=== PATIENT | male | born 1955 | race Caucasian/White ===

== ENCOUNTER 2017-10-09 03:14 | Inpatient (IN) | payer MEDICARE, SELFPAY ==
[2017-10-09] VITALS (17 sets, daily range): BP systolic 96–166; BP diastolic 52–98; PULSE 102–138; RESP 18–23; TEMP 36.6–37.2; O2SAT 92–97; BMI 37.5; BMI 36.6; BMI 36.7
--- NOTE | 2017-10-09 03:30 | EKG12_ITS ---
Test Reason : FALL Blood Pressure : / mmHG Vent. Rate : 117 BPM Atrial Rate : 117 BPM P-R Int : 178 ms QRS Dur : 064 ms QT Int : 316 ms P-R-T Axes : 035 094 020 degrees QTc Int : 440 ms Sinus tachycardia Septal infarct , age undetermined Abnormal ECG Confirmed by RADHA WANG, MONICA ([id number]), publishing editor IWONA DIA ([id number] on 10/11/2017 2:05:44 PM Referred By: NICOLE Confirmed By:MONICA GARCIA MD
--- NOTE | 2017-10-09 03:31 | CT_ITS ---
STUDY: CT CERVICAL SPINE WITHOUT CONTRAST REASON FOR EXAM: Male, 62 years old. Fall RADIATION DOSAGE (If Supplied By Facility): CTDIvol = ( 25.87 ) mGy, DLP = ( 615.36 ) mGycm TECHNIQUE: High resolution transaxial imaging was performed without contrast material. Sagittal and coronal images were reconstructed. Individualized dose optimization techniques were used for this CT. COMPARISON: None FINDINGS: Normal craniovertebral junction. Degenerative changes are present involving the atlantoaxial axial articulation. Normal odontoid process. Normal cervical lordosis. Normal vertebral bodies and posterior osseous elements. Diffuse degenerative disease is present. No acute fractures or dislocations are seen. Carotid calcifications. CT/Spine Cervical without Contras IMPRESSION: No acute osseous injury is evident. Comment: MRI is more sensitive than CT in detecting cord injury, ligament injury, and epidural hematoma. If there is continued clinical concern for any of these entities, MRI correlation should be considered if possible. Electronically Signed: Ricky Foreman MD at 4:46 EDT Tel , Service support ,
--- NOTE | 2017-10-09 03:31 | CT_ITS ---
STUDY: CT ABDOMEN AND PELVIS WITH CONTRAST REASON FOR EXAM: Male, 62 years old. S/P FALL, C/O LOWER BACK PAIN, CONCUSSION DISORDER, UNABLE TO STAND, WEAKNESS, HX MO, HTN, DIAB RADIATION DOSAGE (If Supplied By Facility): CTDIvol = ( 22.84 ) mGy, DLP = ( 2416.67 ) mGycm TECHNIQUE: Transaxial images were obtained from the dome of the diaphragm to the symphysis pubis without oral contrast. 100ML ml of Isovue 300 contrast was administered. Sagittal and coronal images were reconstructed. Individualized dose optimization techniques were used for this CT. COMPARISON: None. FINDINGS: The visualized lung bases are unremarkable. The visualized portions of the heart are within normal limits. Normal liver. Normal gallbladder and extrahepatic biliary system. Normal spleen. Normal pancreas. Normal bilateral adrenal glands. Normal right kidney. Normal left kidney. Bilateral renal cysts are noted the largest measures 3.5 cm. Normal visualized stomach. Normal small intestine. Normal colon. The appendix is visualized and appears normal. Normal abdominal aorta. Normal inferior vena cava. Normal retroperitoneum. Normal urinary bladder. Normal abdominal wall. There are diffuse degenerative changes and demineralization of the visualized lumbar spine. There is compression fracture of T12 without displacement of the posterior wall or stenosis of the spine canal. CT/Abdomen/Pelvis WITH Contrast IMPRESSION: Compression fracture of T12. Electronically Signed: Kianna Goodman MD at 5:08 EDT Tel , Service support ,
--- NOTE | 2017-10-09 03:31 | CT_ITS ---
STUDY: CT BRAIN WITHOUT CONTRAST REASON FOR EXAM: Male, 62 years old. S/P FALL, C/O LOWER BACK PAIN, CONCUSSION DISORDER, UNABLE TO STAND, WEAKNESS, HX [place], HTN, DIAB RADIATION DOSAGE (If Supplied By Facility): CTDIvol = ( 44.99 ) mGy, DLP = ( 880.47 ) mGycm TECHNIQUE: Transaxial CT imaging of the brain was performed without administration of intravenous contrast material. Individualized dose optimization techniques were used for this CT. COMPARISON: None. FINDINGS: Normal soft tissue structures. Normal calvarium. There is moderate cerebral atrophy with widening of the extra-axial spaces and ventricular dilatation. There are areas of decreased attenuation within the white matter tracts of the supratentorial brain, consistent with microvascular disease changes. Normal basal ganglia and thalami. Normal brainstem. Normal cerebellum. There is no intracranial hemorrhage. There are no findings of an acute ischemic infarction. Normal visualized paranasal sinuses. CT/Brain/Head without Contrast IMPRESSION: Chronic involutional changes of the brain. Electronically Signed: Kianna Goodman MD at 4:36 EDT Tel , Service support ,
--- NOTE | 2017-10-09 03:32 | CT_ITS ---
STUDY: CT CHEST WITH CONTRAST REASON FOR EXAM: Male, 62 years old. Fall RADIATION DOSAGE (If Supplied By Facility): CTDIvol = ( 22.84 ) mGy, DLP = ( 2416.67 ) mGycm TECHNIQUE: Transaxial imaging was performed following intravenous administration of 100ML ml of Isovue 300 contrast material. Individualized dose optimization techniques were used for this CT. COMPARISON: None. FINDINGS: Median sternotomy wires and CABG clips. The lungs are normal. There is no demonstrated pleural abnormality. Normal heart and pericardium. Normal mediastinum. Normal hilar regions. Normal enhanced pulmonary arteries. Normal aorta arch and descending thoracic aorta. An incompletely imaged fracture of the T12 vertebral body is noted, seen on sagittal image 161. Fatty liver and left renal cyst. CT/Chest WITH Contrast IMPRESSION: Incompletely imaged fracture of T12. Otherwise, no CT evidence of acute injury involving the chest. Electronically Signed: Ricky Foreman MD at 4:35 EDT Tel , Service support ,
--- NOTE | 2017-10-09 03:39 | ED.DCSUM_ITS ---
- ER Visit Summary Date of Service: 10/09/17 Chief Complaint: Fall, dizziness and right side pain History of Present Illness: The patient is a 62 M with history of postconcussive syndrome, diabetes, hypertension, coronary artery disease and hypercholesterolemia who presents for fall secondary to dizziness. Patient states he fell 1 or 2 days ago, is not sure, and was unable to get off the floor. He fell onto the bathtub, striking his right side. He has rib pain, shortness of breath, and is unable to cough because of associated pain. He was unable to get up off the floor and was on the ground for several hours. He was finally able to call EMS today. He states he falls frequently because of dizziness. He has multiple injuries on his arms due to this. He has carpet vang on his knees because of crawling across the floor. He states he has been unable to walk since he fell due to dizziness and weakness. He denies hitting his head, and is unsure if he lost consciousness. Patient states he has not eaten or taken his medications since he fell. Patient uses alcohol but denies daily drinking. He is not on any blood thinners. He uses oral tobacco. Physical Examination: Vital signs: afebrile, tachycardic, no hypoxia on room air General: well nourished, well developed, sitting in bed in no distress Skin: warm, dry, scattered well-healing abrasions to the upper extremities, no pallor, no rash HEENT: normocephalic and atraumatic; PERRL, EOMI, moist mucous membranes, no maxillofacial trauma noted Spine: tenderness to palp midline cervical spine and thoracic spine, no deformities or step-offs noted Cardiovascular: Tachycardic rate and rhythm without murmurs, no peripheral edema , 2+ pulses all distal extremities Respiratory: Mild increased work of breathing with shallow respirations, tachypnea, lungs are clear to auscultation bilaterally, no rales, rhonchi or wheezing, subacute bruising noted to the right posterior lateral chest wall Abdominal: Abdomen is soft, tender in the left upper quadrant with hyperactive bowel sounds, no guarding or rebound, no masses MSK: Moves all extremities, no deformities, normal strength; abrasions and erythema to the bilateral knees, pelvis is stable and nontender, negative logroll to the hips bilaterally Neuro: Awake and alert, oriented ?4. No facial droop, sensation and motor function intact and symmetric Test Results: Abnormal Lab Results 10/09/17 10/09/17 10/09/17 03:35 03:35 03:35 WBC 18.1 H RBC 4.66 Hgb 15.7 Hct 45.1 MCV 96.8 H MCH 33.7 H MCHC 34.8 RDW 14.5 RDW Differential 49.6 H Plt Count 196 MPV 11.3 Immature Gran % (Auto) 0.300 Neut % (Auto) 79.7 H Lymph % (Auto) 9.4 L [place] % (Auto) 10.3 H Eos % (Auto) 0.1 Baso % (Auto) 0.2 Absolute Neuts (auto) 14.4 H Absolute Lymphs (auto) 1.69 Total Counted Not Reportable Differential Comment SCANNED Diff Path Review May foll Reactive Lymphocytes 2+ PT 14.0 INR 1.1 APTT 29.9 Sodium 136 Potassium 4.2 Chloride 100 Carbon Dioxide 24.0 Anion Gap 12 BUN 23 H Creatinine 1.34 H Estim Creat Clear Calc 57.50 Est GFR (MDRD) Af Amer 69 Est GFR (MDRD) Non-Af 57 L BUN/Creatinine Ratio 17.2 Glucose 255 H Lactic Acid Calcium 9.3 Total Bilirubin 1.40 H Direct Bilirubin 0.36 H AST 63 H ALT 44 Alkaline Phosphatase 72 Total Creatine Kinase Troponin I < 0.015 Total Protein 7.6 Albumin 3.9 Globulin 3.7 Urine Color Urine Clarity Urine pH Ur Specific [place] Urine Protein Urine Glucose (UA) Urine Ketones Urine Occult Blood Urine Nitrite Urine Bilirubin Urine Urobilinogen Ur Leukocyte Esterase Urine RBC Urine WBC Ur Squamous Epith Cells Uric Acid Crystals Urine Bacteria Urine Mucus Urine Opiates Screen Urine Methadone Screen Ur Barbiturates Screen Ur Phencyclidine Scrn Ur Amphetamines Screen U Methamphetamin-MDMA U Benzodiazepines Scrn Urine Cocaine Screen U Cannabinoids Screen Ur Drug Screen Comment Ethyl Alcohol 10/09/17 10/09/17 10/09/17 03:35 03:35 03:35 WBC RBC Hgb Hct MCV MCH MCHC RDW RDW Differential Plt Count MPV Immature Gran % (Auto) Neut % (Auto) Lymph % (Auto) [place] % (Auto) Eos % (Auto) Baso % (Auto) Absolute Neuts (auto) Absolute Lymphs (auto) Total Counted Differential Comment Diff Path Review Reactive Lymphocytes PT INR APTT Sodium Potassium Chloride Carbon Dioxide Anion Gap BUN Creatinine Estim Creat Clear Calc Est GFR (MDRD) Af Amer Est GFR (MDRD) Non-Af BUN/Creatinine Ratio Glucose Lactic Acid 1.8 Calcium Total Bilirubin Direct Bilirubin AST ALT Alkaline Phosphatase Total Creatine Kinase 2057 H Troponin I Total Protein Albumin Globulin Urine Color Urine Clarity Urine pH Ur Specific [place] Urine Protein Urine Glucose (UA) Urine Ketones Urine Occult Blood Urine Nitrite Urine Bilirubin Urine Urobilinogen Ur Leukocyte Esterase Urine RBC Urine WBC Ur Squamous Epith Cells Uric Acid Crystals Urine Bacteria Urine Mucus Urine Opiates Screen Urine Methadone Screen Ur Barbiturates Screen Ur Phencyclidine Scrn Ur Amphetamines Screen U Methamphetamin-MDMA U Benzodiazepines Scrn Urine Cocaine Screen U Cannabinoids Screen Ur Drug Screen Comment Ethyl Alcohol 6.0 10/09/17 10/09/17 04:17 04:17 WBC RBC Hgb Hct MCV MCH MCHC RDW RDW Differential Plt Count MPV Immature Gran % (Auto) Neut % (Auto) Lymph % (Auto) [place] % (Auto) Eos % (Auto) Baso % (Auto) Absolute Neuts (auto) Absolute Lymphs (auto) Total Counted Differential Comment Diff Path Review Reactive Lymphocytes PT INR APTT Sodium Potassium Chloride Carbon Dioxide Anion Gap BUN Creatinine Estim Creat Clear Calc Est GFR (MDRD) Af Amer Est GFR (MDRD) Non-Af BUN/Creatinine Ratio Glucose Lactic Acid Calcium Total Bilirubin Direct Bilirubin AST ALT Alkaline Phosphatase Total Creatine Kinase Troponin I Total Protein Albumin Globulin Urine Color Yellow Urine Clarity Sl. Cloudy Urine pH 5.0 Ur Specific [place] 1.025 Urine Protein 30 H Urine Glucose (UA) 1000 H Urine Ketones 15 H Urine Occult Blood 50 H Urine Nitrite Negative Urine Bilirubin Negative Urine Urobilinogen Normal Ur Leukocyte Esterase Negative Urine RBC 0-5 SEEN Urine WBC 0 SEEN Ur Squamous Epith Cells 0-5 SEEN Uric Acid Crystals RARE Urine Bacteria RARE Urine Mucus 0 SEEN Urine Opiates Screen NEGATIVE Urine Methadone Screen NEGATIVE Ur Barbiturates Screen NEGATIVE Ur Phencyclidine Scrn NEGATIVE Ur Amphetamines Screen NEGATIVE U Methamphetamin-MDMA NEGATIVE U Benzodiazepines Scrn NEGATIVE Urine Cocaine Screen NEGATIVE U Cannabinoids Screen NEGATIVE Ur Drug Screen Comment Ethyl Alcohol Clinical Impression(s) from Imaging Studies Abdomen/Pelvis CT 10/09/17 03:31 IMPRESSION: Compression fracture of T12. Brain CT 10/09/17 03:31 IMPRESSION: Chronic involutional changes of the brain. Cervical Spine CT 10/09/17 03:31 IMPRESSION: No acute osseous injury is evident. Comment: MRI is more sensitive than CT in detecting cord injury, ligament injury, and epidural hematoma. If there is continued clinical concern for any of these entities, MRI correlation should be considered if possible. Chest CT 10/09/17 03:32 IMPRESSION: Incompletely imaged fracture of T12. Otherwise, no CT evidence of acute injury involving the chest. Emergency Department Course and Treatment: Patient presents with complaints of injuries after a fall that he attributes to dizziness from postconcussive syndrome. The fall occurred within the last 2 days but patient is unsure of the timeline. He does know he was on the floor for several hours. This is concerning for possible rhabdomyolysis. Because of patient's bruising on his chest and the pain with breathing and coughing, this is concerning for possible rib fractures or other intrathoracic trauma. Patient is also tender in the abdomen and has C-spine tenderness to palpation. Thus CT of the head, C-spine, chest abdomen and pelvis was performed to look for traumatic injury. CK was checked for concern for muscle breakdown. Was given IV fluids for hydration. He was given morphine for pain. Labs came back with a leukocytosis of 18.1. This in conjunction with the tachycardia, the shortness of breath, and the known chest wall trauma is concerning for possible interval development of pneumonia while patient was on the ground. Thus he was started on Rocephin for antibiotic coverage. CK was elevated at 6 to7 times the upper limit of normal consistent with rhabdomyolysis. CMP showed no electrolyte derangements, and modest elevation of creatinine with no baseline to compare to for the last 4 years. Troponin negative. EKG showed sinus tachycardia without ischemic changes. Drug screen and alcohol screen were negative. Urinalysis showed no signs of infection. Lactate was normal at 1.8. CT head showed no intracranial hemorrhage. C-spine showed no fractures or dislocations. CT chest abdomen and pelvis showed a T12 compression fracture. No rib fractures or pneumonia noted. No infectious source was identified to explain patient's leukocytosis or tachycardia. Likely these are reactive to patient's prolonged downtime and his subsequent rhabdomyolysis. Thus further sepsis workup was not pursued. Patient remained persistently tachycardic despite fluids. He did feel better and was able to sleep. We discussed any possibility that he could be withdrawing from substance or alcohol, and he denied any possible withdrawal syndrome. Patient will be admitted for treatment of rhabdomyolysis and his T12 compression fracture. He was discussed with Dr. Flores. Treatment Plan: [] Disposition: Admit to tele/PCU Impression: 1. Fall 2. Rhabdomyolysis 3. T12 compression fracture 4. Sinus tachycardia 5. Right chest wall contusion This note was generated with [employer] dictation software. It may contain incorrect words, spelling, and punctuation that were not noted in review of the chart prior to signing ED Disposition - Plan for ED Patient: Chief Complaint: Fall Referrals: Maria Isabel Abreu MD [Primary Care Provider] -
[2017-10-09] MEDS: 0.9% Normal Saline 1,000 ML 999 ML IV (03:42)
[2017-10-09 03:53] LABS: Absolute Lymphocyte Count 1.69 X10^3/ul (0.83-4.51); Absolute Neutrophil Count 14.4 X10^3/uL (2.0-7.7); Basophil# 0.04 X10^3/uL; Basophil% 0.2 % (0-1); Differential Indicated SCAN CRITERIA MET; Eosinophil# 0.01 X10^3/uL; Eosinophils% 0.1 % (0-5); Hematocrit 45.1 % (40-54); Hemoglobin 15.7 g/dl (13.0-16.5); Lymphocyte # 1.69 X10^3/ul (4.0); Lymphocyte % 9.4 % (19-41); Mean Corp Hgb Conc 34.8 g/gl (32-36); Mean Corpuscular Hgb 33.7 pg (27.0-32.0); Mean Corpuscular Volume 96.8 fL (80-94); Mean Platelet Vol. 11.3 fl (6.2-12.0); Monocyte# 1.86 X10^3/uL; Monocyte% 10.3 % (0-10); Neutrophil # 14.42 X10^3/uL (2.7-7.7); Neutrophil % 79.7 % (47-70); POSITIVE COUNT NO; POSITIVE DIFFERENTIAL YES; POSITIVE MORPHOLOGY NO; Platelet Count 196 K/mm3 (150-450); RBC Distribution Width CV 14.5 % (11.6-14.6); RBC Distribution Width SD 49.6 fl (35.1-43.9); Red Blood Count 4.66 M/mm3 (4.6-6.2); White Blood Count 18.1 K/mm3 (4.4-11.0)
[2017-10-09 03:56] LABS: International Normalized Ratio 1.1; Partial Thromboplast Time 29.9 Seconds (24.1-36.2)
[2017-10-09 04:11] LABS: Differential Comment SCANNED; Reactive Lymphocyte 2+
[2017-10-09 04:23] LABS: Mucous, Urine 0 SEEN /hpf (<or=2+); White Blood Cells 0 SEEN /hpf (0-5)
[2017-10-09 04:25] LABS: Color, Urine Yellow (Yellow); Glucose, Dipstick 1000 mg/dl (Normal); Ketone-Dipstick 15 mg/dl (Negative); Leukocyte Esterase-Dipstick Negative /ul (Negative); Nitrite-Dipstick Negative (Negative); Occult Blood-Urine 50 /ul (Negative); Protein-Dipstick 30 mg/dl (Negative); Specific Gravity, Urine 1.025 (1.002-1.030); Urine Bilirubin Dipstick Negative (Negative); Urine Clarity Sl. Cloudy (Clear); Urine Urobilinogen Normal (Normal)
[2017-10-09 04:25] LABS: CPK Total, Creatine Kinase 2057 U/L (39-308)
[2017-10-09 04:29] LABS: Lactic Acid 1.8 mmol/L (0.4-2.0)
[2017-10-09 04:34] LABS: Bacteria RARE /hpf (None Seen); Squamous Epithelial Cells - UA 0-5 SEEN /hpf (0-5)
[2017-10-09 04:35] LABS: Red Blood Cells-Urine 0-5 SEEN /hpf (0-5); Uric Acid Crystals Ur RARE /hpf (<or=1+)
[2017-10-09 04:39] LABS: Amphetamine Urine VISTA NEGATIVE (<1000 ng/mL); Barbiturate Urine VISTA NEGATIVE (< 200 ng/mL); Benzodiazepine Urine VISTA NEGATIVE (< 200 ng/mL); Cocaine Urine VISTA NEGATIVE (< 300 ng/mL); Ecstacy Urine VISTA NEGATIVE (< 500 ng/mL); Methadone Urine VISTA NEGATIVE (< 300 ng/mL); PCP Urine VISTA NEGATIVE (< 25 ng/mL); THC Urine VISTA NEGATIVE (< 50 ng/mL); Vista UDS pH Range 5
[2017-10-09] MEDS: Morphine 4 MG/ML Syringe IV (04:42)
[2017-10-09] MEDS: Ondansetron 4 MG/2 ML Vial IV (04:43)
[2017-10-09] MEDS: Ceftriaxone 1 GM/50 ML BAG IV (05:07)
[2017-10-09 05:32] LABS: AST(SGOT) 63 U/L (15-37); Alanine Aminotransfer ALT/SGPT 44 U/L (16-61); Albumin, Serum 3.9 g/dL (3.2-5.0); Alkaline Phosphatase 72 U/L (45-117); Anion Gap 12 (5-15); BUN 23 mg/dL (7-18); BUN/Creat Ratio 17.2 RATIO (10-20); Bilirubin, Direct 0.36 mg/dL (0.00-0.30); Calcium,Total 9.3 mg/dL (8.5-10.1); Chloride 100 mmol/L (98-107); Creatinine, Serum 1.34 mg/dL (0.70-1.30); EST Glomerular Filtration Rate 57 mL/min (>60); Est Glom Filt Rate - Afr Amer 69 mL/min (>60); Globulin 3.7 g/dL (2.2-4.2); Glucose 255 mg/dL (74-106); Potassium 4.2 mmol/L (3.5-5.1); Protein, Total 7.6 g/dL (6.4-8.2); Sodium Level 136 mmol/L (136-145)
--- NOTE | 2017-10-09 06:12 | PCM.HP.STD ---
Problem List (1) Rhabdomyolysis Status: Acute (2) CANDI (acute kidney injury) Status: Acute (3) Post concussion syndrome Status: Chronic (4) CAD (coronary artery disease) Status: Chronic Qualifiers: Coronary Disease-Associated Artery/Lesion type: bypass graft [place] vs. transplanted heart: [place] heart Associated angina: without angina Qualified Code(s): I25.810 - Atherosclerosis of coronary artery bypass graft(s) without angina pectoris (5) Vertigo Status: Chronic (6) DM2 (diabetes mellitus, type 2) Status: Chronic (7) Leukocytosis Status: Acute History of Present Illness Date of Admission: 10/09/17 Chief Complaint: fall The patient is a 62 year old M who has chronic dizziness due to a concussion that he had received 2 or 3 years ago. Patient was in the shower and fell with his dizziness. Today he landed on his side. This occurred on the . Patient was unable to get up but was finally able to get hold EMS and was brought to the hospital. Patient was found to have rhabdomyolysis with total creatinine kinase of 7. Patient had CAT scans of his chest abdomen and neck. Patient was found to have a T12 fracture. Patient does state he has having some pain when he takes deep breath in his anterior chest. Patient's states that he falls at least a couple times per week due to his chronic dizziness. His last fall was a few days prior to this event. [] Past Medical History Past Medical History (Chronic Problems): Chronic Problems Post concussion syndrome (Chronic) CAD (coronary artery disease) (Chronic) Vertigo (Chronic) DM2 (diabetes mellitus, type 2) (Chronic) Allergies Mvopnzd-Sfh-Ysw Reductase Inhibitor Allergy (Verified 10/09/17 03:15) Swelling Home Medications: Ambulatory Orders Medication Instructions Recorded Metformin HCl [Glucophage] 1,000 mg PO BIDCM 07/21/13 Glipizide [Glucotrol] 10 mg PO DAILY 10/09/17 Lisinopril 20 mg PO DAILY 10/09/17 Pioglitazone HCl 45 mg PO DAILY 10/09/17 Surgical History: coronary bypass surgery Psychiatric History: No pertinent psych hx Lives: Alone Smoking Status: Never smoker Tobacco Use: Non-smoker Alcohol: Rare Drugs: None - *Family History Paternal History Items: Heart Disease Review of Systems Constitutional: Denies: Anorexia, Chills, Fever, Night Sweats Eyes: Denies: Blurred vision, Double vision HEENT: Denies: Head Aches, Sinus Congestion, Sinus Drainage Cardiovascular: Denies: Chest Pain, Palpitations Respiratory: Denies: Cough, Shortness of breath at rest, Sputum production Gastrointestinal: Denies: Abdominal Pain, Nausea, Vomiting Genitourinary: Denies: Dysuria, Hematuria Musculoskeletal: Denies: Joint Pain, Joint Tenderness Skin: Reports: Wounds - From his falls Neurological: Reports: Balance problems, - - Difficulty with remembering turns.. Denies: Blurred vision, Double vision Psychiatric: Denies: Anxiety, Depression Endocrine: Denies: Change in Body Habitus Hematologic/ Lymphatic: Denies: Easy Bruising, Easy Bleeding, Hx of blood clot VTE Information - Inpt Only VTE Present on Admission: No VTE Pharm Prophylaxis ordered?: Yes Patient Problems: Active and Suspected Problems Rhabdomyolysis (Acute) CANDI (acute kidney injury) (Acute) Leukocytosis (Acute) - Physical Exam General: Alert, Cooperative, No apparent distress HEENT: Atraumatic, PERRLA, EOMI, Normocephalic Oral: Moist Mucosa, No Gingival or Mucosal Lesions/ Ulcerations Neck: No Nodes, Thyroid Normal Size and Texture Lungs: Clear to auscultation, Normal air movement, No rhonchi, No wheeze Cardiovascular: Regular rate, Regular Rhythm, Normal S1, Normal S2, No murmurs Abdomen: Bowel Sounds Present, Soft, Non Tender, Non-Distended, No Hepato-splenomegaly Extremities: No edema, No Calf Tenderness Skin: - - Some superficial wounds his knees and arms. Musculoskeletal: No Tenderness to Palpation of Joints or Extremities, No Muscle Wasting Neurological: Neuro grossly intact, Muscle tone normal Psych/Mental Status: Normal Affect, Appropriate Vital Signs Temp Pulse Resp BP Pulse Ox 36.7 C 135 H 23 H 132/98 H 94 10/09/17 06:02 10/09/17 06:02 10/09/17 06:02 10/09/17 06:02 10/09/17 06:02 Oxygen Delivery Method Room Air Weight: 118.7 kg Body Mass Index (BMI) 37.5 Finger Stick Blood Glucose 297 Laboratory Tests Past 24 Hrs 10/09/17 10/09/17 10/09/17 03:35 03:35 03:35 WBC 18.1 H RBC 4.66 Hgb 15.7 Hct 45.1 MCV 96.8 H MCH 33.7 H MCHC 34.8 RDW 14.5 RDW Differential 49.6 H Plt Count 196 MPV 11.3 Immature Gran % (Auto) 0.300 Neut % (Auto) 79.7 H Lymph % (Auto) 9.4 L [place] % (Auto) 10.3 H Eos % (Auto) 0.1 Baso % (Auto) 0.2 Absolute Neuts (auto) 14.4 H Absolute Lymphs (auto) 1.69 Total Counted Not Reportable Differential Comment SCANNED Diff Path Review May foll Reactive Lymphocytes 2+ PT 14.0 INR 1.1 APTT 29.9 Sodium 136 Potassium 4.2 Chloride 100 Carbon Dioxide 24.0 Anion Gap 12 BUN 23 H Creatinine 1.34 H Estim Creat Clear Calc 57.50 Est GFR (MDRD) Af Amer 69 Est GFR (MDRD) Non-Af 57 L BUN/Creatinine Ratio 17.2 Glucose 255 H Lactic Acid Calcium 9.3 Total Bilirubin 1.40 H Direct Bilirubin 0.36 H AST 63 H ALT 44 Alkaline Phosphatase 72 Total Creatine Kinase Troponin I < 0.015 Total Protein 7.6 Albumin 3.9 Globulin 3.7 Urine Color Urine Clarity Urine pH Ur Specific [place] Urine Protein Urine Glucose (UA) Urine Ketones Urine Occult Blood Urine Nitrite Urine Bilirubin Urine Urobilinogen Ur Leukocyte Esterase Urine RBC Urine WBC Ur Squamous Epith Cells Uric Acid Crystals Urine Bacteria Urine Mucus Urine Opiates Screen Urine Methadone Screen Ur Barbiturates Screen Ur Phencyclidine Scrn Ur Amphetamines Screen U Methamphetamin-MDMA U Benzodiazepines Scrn Urine Cocaine Screen U Cannabinoids Screen Ur Drug Screen Comment Ethyl Alcohol 10/09/17 10/09/17 10/09/17 03:35 03:35 03:35 WBC RBC Hgb Hct MCV MCH MCHC RDW RDW Differential Plt Count MPV Immature Gran % (Auto) Neut % (Auto) Lymph % (Auto) [place] % (Auto) Eos % (Auto) Baso % (Auto) Absolute Neuts (auto) Absolute Lymphs (auto) Total Counted Differential Comment Diff Path Review Reactive Lymphocytes PT INR APTT Sodium Potassium Chloride Carbon Dioxide Anion Gap BUN Creatinine Estim Creat Clear Calc Est GFR (MDRD) Af Amer Est GFR (MDRD) Non-Af BUN/Creatinine Ratio Glucose Lactic Acid 1.8 Calcium Total Bilirubin Direct Bilirubin AST ALT Alkaline Phosphatase Total Creatine Kinase 2057 H Troponin I Total Protein Albumin Globulin Urine Color Urine Clarity Urine pH Ur Specific [place] Urine Protein Urine Glucose (UA) Urine Ketones Urine Occult Blood Urine Nitrite Urine Bilirubin Urine Urobilinogen Ur Leukocyte Esterase Urine RBC Urine WBC Ur Squamous Epith Cells Uric Acid Crystals Urine Bacteria Urine Mucus Urine Opiates Screen Urine Methadone Screen Ur Barbiturates Screen Ur Phencyclidine Scrn Ur Amphetamines Screen U Methamphetamin-MDMA U Benzodiazepines Scrn Urine Cocaine Screen U Cannabinoids Screen Ur Drug Screen Comment Ethyl Alcohol 6.0 10/09/17 10/09/17 04:17 04:17 WBC RBC Hgb Hct MCV MCH MCHC RDW RDW Differential Plt Count MPV Immature Gran % (Auto) Neut % (Auto) Lymph % (Auto) [place] % (Auto) Eos % (Auto) Baso % (Auto) Absolute Neuts (auto) Absolute Lymphs (auto) Total Counted Differential Comment Diff Path Review Reactive Lymphocytes PT INR APTT Sodium Potassium Chloride Carbon Dioxide Anion Gap BUN Creatinine Estim Creat Clear Calc Est GFR (MDRD) Af Amer Est GFR (MDRD) Non-Af BUN/Creatinine Ratio Glucose Lactic Acid Calcium Total Bilirubin Direct Bilirubin AST ALT Alkaline Phosphatase Total Creatine Kinase Troponin I Total Protein Albumin Globulin Urine Color Yellow Urine Clarity Sl. Cloudy Urine pH 5.0 Ur Specific [place] 1.025 Urine Protein 30 H Urine Glucose (UA) 1000 H Urine Ketones 15 H Urine Occult Blood 50 H Urine Nitrite Negative Urine Bilirubin Negative Urine Urobilinogen Normal Ur Leukocyte Esterase Negative Urine RBC 0-5 SEEN Urine WBC 0 SEEN Ur Squamous Epith Cells 0-5 SEEN Uric Acid Crystals RARE Urine Bacteria RARE Urine Mucus 0 SEEN Urine Opiates Screen NEGATIVE Urine Methadone Screen NEGATIVE Ur Barbiturates Screen NEGATIVE Ur Phencyclidine Scrn NEGATIVE Ur Amphetamines Screen NEGATIVE U Methamphetamin-MDMA NEGATIVE U Benzodiazepines Scrn NEGATIVE Urine Cocaine Screen NEGATIVE U Cannabinoids Screen NEGATIVE Ur Drug Screen Comment Ethyl Alcohol Clinical Impression(s) from Imaging Studies Abdomen/Pelvis CT 10/09/17 03:31 IMPRESSION: Compression fracture of T12. Electronically Signed: Kianna Goodman MD at 5:08 EDT Tel , Service support , Brain CT 10/09/17 03:31 IMPRESSION: Chronic involutional changes of the brain. Electronically Signed: Kianna Goodman MD at 4:36 EDT Tel , Service support , Cervical Spine CT 10/09/17 03:31 IMPRESSION: No acute osseous injury is evident. Comment: MRI is more sensitive than CT in detecting cord injury, ligament injury, and epidural hematoma. If there is continued clinical concern for any of these entities, MRI correlation should be considered if possible. Electronically Signed: Ricky Foreman MD at 4:46 EDT Tel , Service support , Chest CT 10/09/17 03:32 IMPRESSION: Incompletely imaged fracture of T12. Otherwise, no CT evidence of acute injury involving the chest. Electronically Signed: Ricky Foreman MD at 4:35 EDT Tel , Service support , Assessment/Plan Active and Suspected Problems Rhabdomyolysis (Acute) CANDI (acute kidney injury) (Acute) Leukocytosis (Acute) 1. Rhabdomyolysis Secondary to fall and being down for 24+ hours. IV fluids Recheck CK levels to evaluate response. 2. Acute kidney injury, presumed Baseline creatinine appears to be around 1 and now it is 1.34 IV fluids and reevaluate. 3. Diabetes mellitus type 2 Hold the metformin given IV contrast he received with his CAT scans Continue with glipizide and p.o. glitazone Start sliding scale insulin 4. Chronic vertigo Patient is seen numerous specialists, including neurologists, possibly ENT and psychiatrist. Is felt from by those specialists, going to the patient, that this is related with his postconcussive syndrome. I asked the patient if he has been told he has M?ni?re's disease and looked to me as though that the first time is heard those words Follow-up with neurology as outpatient 5. DVT prophylaxis with low molecular weight heparin 6. Advanced care planning: Patient wishes to be full CODE STATUS at this time. Code Visit Inpatient E&M: [id number] Init Hosp L3
--- NOTE | 2017-10-09 06:20 | HP.PCM_ITS ---
Problem List (1) Rhabdomyolysis Status: Acute (2) CANDI (acute kidney injury) Status: Acute (3) Post concussion syndrome Status: Chronic (4) CAD (coronary artery disease) Status: Chronic Qualifiers: Coronary Disease-Associated Artery/Lesion type: bypass graft [place] vs. transplanted heart: [place] heart Associated angina: without angina Qualified Code(s): I25.810 - Atherosclerosis of coronary artery bypass graft(s) without angina pectoris (5) Vertigo Status: Chronic (6) DM2 (diabetes mellitus, type 2) Status: Chronic (7) Leukocytosis Status: Acute History of Present Illness Date of Admission: 10/09/17 Chief Complaint: fall The patient is a 62 year old M who has chronic dizziness due to a concussion that he had received 2 or 3 years ago. Patient was in the shower and fell with his dizziness. Today he landed on his side. This occurred on the . Patient was unable to get up but was finally able to get hold EMS and was brought to the hospital. Patient was found to have rhabdomyolysis with total creatinine kinase of 7. Patient had CAT scans of his chest abdomen and neck. Patient was found to have a T12 fracture. Patient does state he has having some pain when he takes deep breath in his anterior chest. Patient's states that he falls at least a couple times per week due to his chronic dizziness. His last fall was a few days prior to this event. [] Past Medical History Past Medical History (Chronic Problems): Chronic Problems Post concussion syndrome (Chronic) CAD (coronary artery disease) (Chronic) Vertigo (Chronic) DM2 (diabetes mellitus, type 2) (Chronic) Allergies Manpwbr-Xgx-Ofe Reductase Inhibitor Allergy (Verified 10/09/17 03:15) Swelling Home Medications: Ambulatory Orders Medication Instructions Recorded Metformin HCl [Glucophage] 1,000 mg PO BIDCM 07/21/13 Glipizide [Glucotrol] 10 mg PO DAILY 10/09/17 Lisinopril 20 mg PO DAILY 10/09/17 Pioglitazone HCl 45 mg PO DAILY 10/09/17 Surgical History: coronary bypass surgery Psychiatric History: No pertinent psych hx Lives: Alone Smoking Status: Never smoker Tobacco Use: Non-smoker Alcohol: Rare Drugs: None - *Family History Paternal History Items: Heart Disease Review of Systems Constitutional: Denies: Anorexia, Chills, Fever, Night Sweats Eyes: Denies: Blurred vision, Double vision HEENT: Denies: Head Aches, Sinus Congestion, Sinus Drainage Cardiovascular: Denies: Chest Pain, Palpitations Respiratory: Denies: Cough, Shortness of breath at rest, Sputum production Gastrointestinal: Denies: Abdominal Pain, Nausea, Vomiting Genitourinary: Denies: Dysuria, Hematuria Musculoskeletal: Denies: Joint Pain, Joint Tenderness Skin: Reports: Wounds - From his falls Neurological: Reports: Balance problems, - - Difficulty with remembering turns.. Denies: Blurred vision, Double vision Psychiatric: Denies: Anxiety, Depression Endocrine: Denies: Change in Body Habitus Hematologic/ Lymphatic: Denies: Easy Bruising, Easy Bleeding, Hx of blood clot VTE Information - Inpt Only VTE Present on Admission: No VTE Pharm Prophylaxis ordered?: Yes Patient Problems: Active and Suspected Problems Rhabdomyolysis (Acute) CANDI (acute kidney injury) (Acute) Leukocytosis (Acute) - Physical Exam General: Alert, Cooperative, No apparent distress HEENT: Atraumatic, PERRLA, EOMI, Normocephalic Oral: Moist Mucosa, No Gingival or Mucosal Lesions/ Ulcerations Neck: No Nodes, Thyroid Normal Size and Texture Lungs: Clear to auscultation, Normal air movement, No rhonchi, No wheeze Cardiovascular: Regular rate, Regular Rhythm, Normal S1, Normal S2, No murmurs Abdomen: Bowel Sounds Present, Soft, Non Tender, Non-Distended, No Hepato- splenomegaly Extremities: No edema, No Calf Tenderness Skin: - - Some superficial wounds his knees and arms. Musculoskeletal: No Tenderness to Palpation of Joints or Extremities, No Muscle Wasting Neurological: Neuro grossly intact, Muscle tone normal Psych/Mental Status: Normal Affect, Appropriate Vital Signs Temp Pulse Resp BP Pulse Ox 36.7 C 135 H 23 H 132/98 H 94 10/09/17 06:02 10/09/17 06:02 10/09/17 06:02 10/09/17 06:02 10/09/17 06:02 Oxygen Delivery Method Room Air Weight: 118.7 kg Body Mass Index (BMI) 37.5 Finger Stick Blood Glucose 297 Laboratory Tests Past 24 Hrs 10/09/17 10/09/17 10/09/17 03:35 03:35 03:35 WBC 18.1 H RBC 4.66 Hgb 15.7 Hct 45.1 MCV 96.8 H MCH 33.7 H MCHC 34.8 RDW 14.5 RDW Differential 49.6 H Plt Count 196 MPV 11.3 Immature Gran % (Auto) 0.300 Neut % (Auto) 79.7 H Lymph % (Auto) 9.4 L [place] % (Auto) 10.3 H Eos % (Auto) 0.1 Baso % (Auto) 0.2 Absolute Neuts (auto) 14.4 H Absolute Lymphs (auto) 1.69 Total Counted Not Reportable Differential Comment SCANNED Diff Path Review May foll Reactive Lymphocytes 2+ PT 14.0 INR 1.1 APTT 29.9 Sodium 136 Potassium 4.2 Chloride 100 Carbon Dioxide 24.0 Anion Gap 12 BUN 23 H Creatinine 1.34 H Estim Creat Clear Calc 57.50 Est GFR (MDRD) Af Amer 69 Est GFR (MDRD) Non-Af 57 L BUN/Creatinine Ratio 17.2 Glucose 255 H Lactic Acid Calcium 9.3 Total Bilirubin 1.40 H Direct Bilirubin 0.36 H AST 63 H ALT 44 Alkaline Phosphatase 72 Total Creatine Kinase Troponin I < 0.015 Total Protein 7.6 Albumin 3.9 Globulin 3.7 Urine Color Urine Clarity Urine pH Ur Specific [place] Urine Protein Urine Glucose (UA) Urine Ketones Urine Occult Blood Urine Nitrite Urine Bilirubin Urine Urobilinogen Ur Leukocyte Esterase Urine RBC Urine WBC Ur Squamous Epith Cells Uric Acid Crystals Urine Bacteria Urine Mucus Urine Opiates Screen Urine Methadone Screen Ur Barbiturates Screen Ur Phencyclidine Scrn Ur Amphetamines Screen U Methamphetamin-MDMA U Benzodiazepines Scrn Urine Cocaine Screen U Cannabinoids Screen Ur Drug Screen Comment Ethyl Alcohol 10/09/17 10/09/17 10/09/17 03:35 03:35 03:35 WBC RBC Hgb Hct MCV MCH MCHC RDW RDW Differential Plt Count MPV Immature Gran % (Auto) Neut % (Auto) Lymph % (Auto) [place] % (Auto) Eos % (Auto) Baso % (Auto) Absolute Neuts (auto) Absolute Lymphs (auto) Total Counted Differential Comment Diff Path Review Reactive Lymphocytes PT INR APTT Sodium Potassium Chloride Carbon Dioxide Anion Gap BUN Creatinine Estim Creat Clear Calc Est GFR (MDRD) Af Amer Est GFR (MDRD) Non-Af BUN/Creatinine Ratio Glucose Lactic Acid 1.8 Calcium Total Bilirubin Direct Bilirubin AST ALT Alkaline Phosphatase Total Creatine Kinase 2057 H Troponin I Total Protein Albumin Globulin Urine Color Urine Clarity Urine pH Ur Specific [place] Urine Protein Urine Glucose (UA) Urine Ketones Urine Occult Blood Urine Nitrite Urine Bilirubin Urine Urobilinogen Ur Leukocyte Esterase Urine RBC Urine WBC Ur Squamous Epith Cells Uric Acid Crystals Urine Bacteria Urine Mucus Urine Opiates Screen Urine Methadone Screen Ur Barbiturates Screen Ur Phencyclidine Scrn Ur Amphetamines Screen U Methamphetamin-MDMA U Benzodiazepines Scrn Urine Cocaine Screen U Cannabinoids Screen Ur Drug Screen Comment Ethyl Alcohol 6.0 10/09/17 10/09/17 04:17 04:17 WBC RBC Hgb Hct MCV MCH MCHC RDW RDW Differential Plt Count MPV Immature Gran % (Auto) Neut % (Auto) Lymph % (Auto) [place] % (Auto) Eos % (Auto) Baso % (Auto) Absolute Neuts (auto) Absolute Lymphs (auto) Total Counted Differential Comment Diff Path Review Reactive Lymphocytes PT INR APTT Sodium Potassium Chloride Carbon Dioxide Anion Gap BUN Creatinine Estim Creat Clear Calc Est GFR (MDRD) Af Amer Est GFR (MDRD) Non-Af BUN/Creatinine Ratio Glucose Lactic Acid Calcium Total Bilirubin Direct Bilirubin AST ALT Alkaline Phosphatase Total Creatine Kinase Troponin I Total Protein Albumin Globulin Urine Color Yellow Urine Clarity Sl. Cloudy Urine pH 5.0 Ur Specific [place] 1.025 Urine Protein 30 H Urine Glucose (UA) 1000 H Urine Ketones 15 H Urine Occult Blood 50 H Urine Nitrite Negative Urine Bilirubin Negative Urine Urobilinogen Normal Ur Leukocyte Esterase Negative Urine RBC 0-5 SEEN Urine WBC 0 SEEN Ur Squamous Epith Cells 0-5 SEEN Uric Acid Crystals RARE Urine Bacteria RARE Urine Mucus 0 SEEN Urine Opiates Screen NEGATIVE Urine Methadone Screen NEGATIVE Ur Barbiturates Screen NEGATIVE Ur Phencyclidine Scrn NEGATIVE Ur Amphetamines Screen NEGATIVE U Methamphetamin-MDMA NEGATIVE U Benzodiazepines Scrn NEGATIVE Urine Cocaine Screen NEGATIVE U Cannabinoids Screen NEGATIVE Ur Drug Screen Comment Ethyl Alcohol Clinical Impression(s) from Imaging Studies Abdomen/Pelvis CT 10/09/17 03:31 IMPRESSION: Compression fracture of T12. Electronically Signed: Kianna Goodman MD at 5:08 EDT Tel , Service support , Brain CT 10/09/17 03:31 IMPRESSION: Chronic involutional changes of the brain. Electronically Signed: Kianna Goodman MD at 4:36 EDT Tel , Service support , Cervical Spine CT 10/09/17 03:31 IMPRESSION: No acute osseous injury is evident. Comment: MRI is more sensitive than CT in detecting cord injury, ligament injury, and epidural hematoma. If there is continued clinical concern for any of these entities, MRI correlation should be considered if possible. Electronically Signed: Ricky Foreman MD at 4:46 EDT Tel , Service support , Chest CT 10/09/17 03:32 IMPRESSION: Incompletely imaged fracture of T12. Otherwise, no CT evidence of acute injury involving the chest. Electronically Signed: Ricky Foreman MD at 4:35 EDT Tel , Service support , Assessment/Plan Active and Suspected Problems Rhabdomyolysis (Acute) CANDI (acute kidney injury) (Acute) Leukocytosis (Acute) 1. Rhabdomyolysis * Secondary to fall and being down for 24+ hours. * IV fluids * Recheck CK levels to evaluate response. 2. Acute kidney injury, presumed * Baseline creatinine appears to be around 1 and now it is 1.34 * IV fluids and reevaluate. 3. Diabetes mellitus type 2 * Hold the metformin given IV contrast he received with his CAT scans * Continue with glipizide and p.o. glitazone * Start sliding scale insulin 4. Chronic vertigo * Patient is seen numerous specialists, including neurologists, possibly ENT and psychiatrist. Is felt from by those specialists, going to the patient, that this is related with his postconcussive syndrome. I asked the patient if he has been told he has M?ni?re's disease and looked to me as though that the first time is heard those words * Follow-up with neurology as outpatient 5. DVT prophylaxis with low molecular weight heparin 6. Advanced care planning: Patient wishes to be full CODE STATUS at this time. Code Visit Inpatient E&M: [id number] Init Hosp L3
--- NOTE | 2017-10-09 06:45 | MRI_ITS ---
STUDY: MRI THORACIC SPINE WITHOUT CONTRAST REASON FOR EXAM: Male, 62 years old. COMPRESSION FX T12 -- falls, pain , f/u CT. TECHNIQUE: Standardized fat and water weighted pulse sequences were obtained in the sagittal and axial planes. Technologist Notes sag s done only patient refused to continue due to back pain post morphine prior to start COMPARISON: 10/09/2017 CT abdomen FINDINGS: There is an increased kyphosis of the thoracic spine. There is no substantial scoliosis. T1-2, T2-3, T3-4, T4-5, T5-6, T6-7, T7-8, T8-9, T9-10, T10-11, T11-12: There is diffuse disc space narrowing and endplate spondylosis without significant central canal or foraminal stenosis. There is minimal compression at T12 with mild edema, consistent with fracture. There is no retropulsion. There is no evidence of ligamentous injury. There is increased cord signal and decreased cord size at T9. Complete evaluation is limited secondary to lack of axial sequence. Normal visualized thoracic cord. Normal conus medullaris that terminates at the . The soft tissue structures are unremarkable. MRI/Spine Thoracic (Routine) IMPRESSION: Acute T12 fracture. 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 Electronically Signed: Patsy Pemberton MD at 15:49 EDT Tel , Service support ,
[2017-10-09] MEDS: 0.9% Normal Saline 1,000 ML 150 ML IV ×3 (07:01→18:58)
[2017-10-09] MEDS: oxyCODONE 5 MG Tablet PO ×3 (07:03→20:25)
[2017-10-09] MEDS: Lisinopril 20 MG Tablet PO (08:39)
[2017-10-09] MEDS: glipiZIDE 10 MG Tablet PO (08:39)
[2017-10-09] MEDS: Enoxaparin 40 MG/0.4 ML Syringe SC (08:40)
[2017-10-09 08:56] LABS: Bedside Glucose 241 mg/dL (70-110)
[2017-10-09] MEDS: Pioglitazone Hydrochloride 45 MG Tablet PO (10:15)
[2017-10-09] MEDS: Metoprolol Tartrate 25 MG Tablet PO (10:15)
[2017-10-09] MEDS: Morphine 4 MG/ML Syringe 1 MG IV (11:13)
[2017-10-09] MEDS: BENZOCAINE/MENTHOL 1 LOZENGE MUCOUS MEM ×3 (11:13→21:00)
[2017-10-09] MEDS: Carbamide Peroxide 15 ML Bottle 5 DRP OTIC (11:30)
[2017-10-09 11:31] LABS: Bedside Glucose 244 mg/dL (70-110)
[2017-10-09 11:43] LABS: CPK Total, Creatine Kinase 1601 U/L (39-308)
--- NOTE | 2017-10-09 13:22 | CASEMGMT ---
Face to Face with patient for initial transition planning/care coordination assessment. RN SUDHEER introduced self and role at [facility], pt voices understanding and consents to assessment at this time. Pt is lying in bed in no distress at this time. Pt is A/O x4 at this time and answers all questions appropriately at this time. Care providers, pharmacy, and demographics verified. See attached link. Pt voices no further concerns/needs at this time. Advised pt to ask for CM if any further questions/concerns/needs arise, voices understanding. CM to follow for any further discharge planning/needs. Referral to [facility] for possible placement and AD completion, voices understanding. PLAN: TBD Isadora MCCORMICK CM
--- NOTE | 2017-10-09 13:37 | PN_ITS ---
<Berta Chen - Last Filed: 10/09/17 13:37> Patient Problems: Active and Suspected Problems Rhabdomyolysis (Acute) CANDI (acute kidney injury) (Acute) Leukocytosis (Acute) Subjective: Patient seen and examined. Complains of sore throat and right ear pain. States he has had frequent ongoing falls at home secondary to reported postconcussion syndrome. Patient complains of mid back pain secondary to fall prior to admission. Denies other current complaints. - Physical Exam General: Alert, Oriented x3, Cooperative, No apparent distress HEENT: Atraumatic, PERRLA, EOMI, Normocephalic Neck: Supple, No JVD, Negative Carotid Bruits Lungs: Clear to auscultation, Normal air movement Cardiovascular: Regular rate, Regular Rhythm, Normal S1, Normal S2, No murmurs Abdomen: Bowel Sounds Present, Soft, Non Tender, Non-Distended, Obese Extremities: No clubbing, No cyanosis, No edema, Capillary Refill Less than 3 Seconds Skin: - - Abrasions bilateral knees. Musculoskeletal: No Tenderness to Palpation of Joints or Extremities Neurological: Cranial nerves II-XII grossly intact, Neuro grossly intact Psych/Mental Status: Normal Affect, Appropriate Vital Signs Temp Pulse Resp BP Pulse Ox 97.9 F 107 H 18 96/63 93 10/09/17 11:25 10/09/17 11:25 10/09/17 11:25 10/09/17 11:25 10/09/17 11:25 Oxygen Delivery Method Room Air Weight: 115.9 kg Body Mass Index (BMI) 36.6 Laboratory Tests Past 24 Hrs 10/09/17 10:10 Total Creatine Kinase 1601 H POC Glucose 10/09/17 10/09/17 11:22 08:19 POC Glucose 244 H 241 H Medical Necessity - Tobacco Use Smoking Status: Former smoker Tobacco Use: Non-smoker Assessment/Plan Active and Suspected Problems Rhabdomyolysis (Acute) CANDI (acute kidney injury) (Acute) Leukocytosis (Acute) Patient is a 62-year-old male admitted 10/09/2017 due to fall. Patient has a past medical history of frequent falls secondary to chronic dizziness as a result of postconcussion syndrome, CAD, type 2 diabetes mellitus, hypertension. 1. Acute traumatic rhabdomyolysis, secondary to fall prior to admission and being down for 24+ hours-continue IV fluids. Trend CK. CK improved to 1601 from 2056 on admission. 2. CANDI-secondary to #1. Trend BMP. Continue IV fluids. 3. Acute traumatic T12 fracture, secondary to mechanical fall prior to admission -CT of chest showed fracture of T12. Otherwise no evidence of injury involving the chest. MRI of thoracic spine ordered, pending. Consider Dr. Ortiz consult pending MRI results. PT/OT. PRN pain regimen. 4. Frequent falls, debility secondary to chronic dizziness as a result of postconcussion syndrome-patient states he has followed up with neurology in the past, no follow-up recently. He reports he was told by neurology that his chronic dizziness is related to postconcussion syndrome. Brain CT shows chronic changes. Consult neurology. PT/OT. CM consult regarding discharge planning. 5. CAD-denies chest pain. Not on aspirin, statin. 6. Type 2 diabetes mellitus-continue home oral regimen. Accu-Cheks before meals at bedtime with sliding scale insulin. 7. Hypertension-stable. Home lisinopril regimen on hold secondary to #2. Continue to monitor. DVT prophylaxis-Lovenox subcu. Discharge planning: Case management involved. Physical therapy assessment pending. Patient may need further home-going needs/temporary placement. This patient was seen by REYNALDO Olvera under the supervision of Dr. Chase. <Josee Chase - Last Filed: 10/09/17 16:31> - Physical Exam Vital Signs Temp Pulse Resp BP Pulse Ox 98.1 F 109 H 18 97/62 94 10/09/17 16:00 10/09/17 16:00 10/09/17 16:00 10/09/17 16:00 10/09/17 16:00 Oxygen Delivery Method Room Air Weight: 115.9 kg Body Mass Index (BMI) 36.6 Intake and Output for Last 24 Hours 10/07/17 10/08/17 10/09/17 23:59 23:59 23:59 Intake Total 1215 / 1215 Output Total 425 / 425 Balance 790 / 790 Laboratory Tests Past 24 Hrs 10/09/17 10:10 Total Creatine Kinase 1601 H POC Glucose 10/09/17 10/09/17 11:22 08:19 POC Glucose 244 H 241 H Assessment/Plan Patient was seen and examined with nurse practitioner, Berta Chen. Agree with his above interval history, physical exam, and assessment and plan as documented above. He complains of sore throat and ear pain that started this morning. He has severe back pain, and pain medications fairly helping him. He has history of chronic dizziness, does not follow up with any neurologist, does not use any assistive device at home. He denies passing out at the time of the fall. He denies any chest pain or palpitations no fever or chills Vitals have been reviewed, heart rate has remained high on account of pain. Physical exam is significant for mild hyperemia of the pharynx, no tonsillar enlargement. Right ear has wax, eardrum on the needed looks normal. Decreased air entry in the lung bases, heart sounds 1 and 2 present, no murmurs Meds were reviewed. MRI shows acute T12 compression fracture -we will consult Dr. Cunningham, continue with current pain management, PT and OT to evaluate and treat. Neurology consult for chronic dizziness, postconcussion syndrome Will follow up on PT and OT recommendation Code Visit Inpatient E&M: 65971 Subs Hosp L3
--- NOTE | 2017-10-09 14:46 | CASEMGMT ---
SW attempted to talk with patient about d/c plan. However, he is not feeling well and asked SW to come back. SW told him SW will check in with him tomorrow. Plan: likely SNF Chery YOUNGER MSW
[2017-10-09 15:00] LABS: Pathologist Review Reviewed
[2017-10-09 16:56] LABS: Bedside Glucose 190 mg/dL (70-110)
[2017-10-09 22:05] LABS: CPK Total, Creatine Kinase 800 U/L (39-308)
[2017-10-09 23:50] LABS: Bedside Glucose 178 mg/dL (70-110)
[2017-10-10] VITALS (10 sets, daily range): BP systolic 119–158; BP diastolic 64–82; PULSE 98–114; RESP 16–18; TEMP 36.9–37.1; O2SAT 94–95
[2017-10-10] MEDS: oxyCODONE 5 MG Tablet PO ×3 (00:42→17:29)
[2017-10-10] MEDS: 0.9% Normal Saline 1,000 ML 150 ML IV ×2 (00:43→07:50)
[2017-10-10] MEDS: Morphine 4 MG/ML Syringe 1 MG IV ×2 (03:23→11:15)
[2017-10-10] MEDS: BENZOCAINE/MENTHOL 1 LOZENGE MUCOUS MEM ×2 (03:24→17:29)
[2017-10-10] MEDS: Acetaminophen 325 MG Tablet 650 MG PO (06:22)
[2017-10-10 06:33] LABS: Absolute Lymphocyte Count 1.89 X10^3/ul (0.83-4.51); Absolute Neutrophil Count 7.3 X10^3/uL (2.0-7.7); Basophil# 0.03 X10^3/uL; Basophil% 0.3 % (0-1); Eosinophil# 0.14 X10^3/uL; Eosinophils% 1.3 % (0-5); Hematocrit 39.3 % (40-54); Hemoglobin 12.9 g/dl (13.0-16.5); Lymphocyte # 1.89 X10^3/ul (4.0); Lymphocyte % 18.2 % (19-41); Mean Corp Hgb Conc 32.8 g/gl (32-36); Mean Corpuscular Hgb 33.3 pg (27.0-32.0); Mean Corpuscular Volume 101.6 fL (80-94); Mean Platelet Vol. 10.8 fl (6.2-12.0); Monocyte# 0.98 X10^3/uL; Monocyte% 9.4 % (0-10); Neutrophil # 7.32 X10^3/uL (2.7-7.7); Neutrophil % 70.5 % (47-70); Platelet Count 131 K/mm3 (150-450); RBC Distribution Width CV 14.6 % (11.6-14.6); RBC Distribution Width SD 53.2 fl (35.1-43.9); Red Blood Count 3.87 M/mm3 (4.6-6.2); White Blood Count 10.4 K/mm3 (4.4-11.0)
[2017-10-10 06:38] LABS: POSITIVE COUNT NO; POSITIVE DIFFERENTIAL NO; POSITIVE MORPHOLOGY NO
[2017-10-10 06:55] LABS: Bedside Glucose 152 mg/dL (70-110)
[2017-10-10 06:56] LABS: Anion Gap 7 (5-15); BUN 19 mg/dL (7-18); BUN/Creat Ratio 20.6 RATIO (10-20); Calcium,Total 8.1 mg/dL (8.5-10.1); Chloride 108 mmol/L (98-107); Creatinine, Serum 0.92 mg/dL (0.70-1.30); EST Glomerular Filtration Rate 88 mL/min (>60); Est Glom Filt Rate - Afr Amer 106 mL/min (>60); Estimated Creatinine Clearance 83.76 ml/min; Glucose 149 mg/dL (74-106); Potassium 4.3 mmol/L (3.5-5.1); Sodium Level 142 mmol/L (136-145)
[2017-10-10] MEDS: glipiZIDE 10 MG Tablet PO (07:59)
--- NOTE | 2017-10-10 09:15 | PN_ITS ---
Patient Problems: Active and Suspected Problems Rhabdomyolysis (Acute) CANDI (acute kidney injury) (Acute) Leukocytosis (Acute) Subjective: Patient was seen and examined, he feels great this morning, pain is much controlled. Denies any dizziness or chest pain or shortness of breath. His sore throat is much improved. Discussed in detail with Dr. Cunningham, he plans on doing a kyphoplasty tomorrow if patient is agreeable. Discussed with patient, he wanted to know more about the risks and benefits, I told him that Dr. Orozco will pass by later in the day to explain and then possibly proceed with the procedure tomorrow if patient is still agreeable Objective: Physical Exam General: Alert, Oriented x3, Cooperative, No apparent distress, obese HEENT: Atraumatic, PERRLA, EOMI, Normocephalic Neck: Supple, No JVD, Negative Carotid Bruits Lungs: Clear to auscultation, Normal air movement Cardiovascular: Regular rate, Regular Rhythm, Normal S1, Normal S2, No murmurs Abdomen: Bowel Sounds Present, Soft, Non Tender, Non-Distended, Obese Extremities: No clubbing, No cyanosis, No edema, Capillary Refill Less than 3 Seconds Skin: - - Abrasions bilateral knees. Musculoskeletal: No Tenderness to Palpation of Joints or Extremities Neurological: Cranial nerves II-XII grossly intact, Neuro grossly intact Psych/Mental Status: Normal Affect, Appropriate Vitals/I&O's: Vital Signs Temp Pulse Resp BP Pulse Ox 98.5 F 114 H 16 135/64 H 94 10/10/17 03:10 10/10/17 07:13 10/10/17 03:10 10/10/17 03:10 10/10/17 03:10 Oxygen Delivery Method Room Air Weight: 115.9 kg Body Mass Index (BMI) 36.6 Intake and Output for Last 24 Hours 10/08/17 10/09/17 10/10/17 23:59 23:59 23:59 Intake Total 4145 / 4145 1046 / 1046 Output Total 850 / 850 550 / 550 Balance 3295 / 3295 496 / 496 Laboratory Results 10/09/17 10:10: Total Creatine Kinase 1601 H 10/09/17 11:22: POC Glucose 244 H 10/09/17 16:44: POC Glucose 190 H 10/09/17 21:03: POC Glucose 178 H 10/09/17 21:36: Total Creatine Kinase 800 H 10/10/17 06:15: WBC 10.4, RBC 3.87 L, Hgb 12.9 L, Hct 39.3 L, MCV 101.6 H, MCH 33.3 H, MCHC 32.8, RDW 14.6, RDW Differential 53.2 H, Plt Count 131 L, MPV 10.8 , Immature Gran % (Auto) 0.300, Neut % (Auto) 70.5 H, Lymph % (Auto) 18.2 L, [place] % (Auto) 9.4, Eos % (Auto) 1.3, Baso % (Auto) 0.3, Absolute Neuts (auto) 7.3, Absolute Lymphs (auto) 1.89, Total Counted Not Reportable 10/10/17 06:15: Sodium 142, Potassium 4.3, Chloride 108 H, Carbon Dioxide 27.0, Anion Gap 7, BUN 19 H, Creatinine 0.92, Estim Creat Clear Calc 83.76, Est GFR ( MDRD) Af Amer 106, Est GFR (MDRD) Non-Af 88, BUN/Creatinine Ratio 20.6 H, Glucose 149 H, Calcium 8.1 L 10/10/17 06:43: POC Glucose 152 H Current Medications Acetaminophen (Tylenol) 650 mg PO Q6H PRN PRN PRN Reason: Mild Pain (1-3)/Temp > 100.7 F Last Admin: 10/10/17 06:22 Dose: 650 mg Dextrose (D50w Syringe) 0 gm IV X1 PRN; Protocol PRN Reason: Hypoglycemia Enoxaparin Sodium (Lovenox) 40 mg SC DAILY@1000 [facility] Last Admin: 10/09/17 08:40 Dose: 40 mg Glipizide (Glucotrol) 10 mg PO DAILY@0800 [facility] Last Admin: 10/10/17 07:59 Dose: 10 mg Glucagon () 1 mg IM .X1 PRN PRN Reason: Hypoglycemia Sodium Chloride () 1,000 mls @ 150 mls/hr IV .Q6H40M [facility] Last Admin: 10/10/17 07:50 Dose: 150 mls/hr Insulin Aspart (Novolog Flexpen (Bkc)) 0 units SC TIDAC [facility] PRN Reason: Protocol Last Admin: 10/10/17 07:50 Dose: 1 u Magnesium Hydroxide (Milk Of Magnesia) 30 ml PO DAILY PRN PRN PRN Reason: Constipation Morphine Sulfate () 1 mg IV Q4H PRN PRN PRN Reason: MOD-SEVERE PAIN (4-10/10) Last Admin: 10/10/17 03:23 Dose: 1 mg Oxycodone HCl (Oxyir) 5 - 10 mg PO Q4H PRN PRN PRN Reason: MOD-SEVERE PAIN (4-10/10) Last Admin: 10/10/17 05:30 Dose: 10 mg Pioglitazone HCl (Actos) 45 mg PO DAILY [facility] Last Admin: 10/09/17 10:15 Dose: 45 mg Throat Lozenges (Cepacol Sore Throat Lozenge) 1 lozenge MUCOUS MEM Q2H PRN PRN PRN Reason: SORE THROAT Last Admin: 10/10/17 03:24 Dose: 1 lozenge Medical Necessity - Tobacco Use Smoking Status: Former smoker Tobacco Use: Non-smoker Assessment/Plan Active and Suspected Problems Rhabdomyolysis (Acute) CANDI (acute kidney injury) (Acute) Leukocytosis (Acute) Patient is a 62-year-old male admitted on 10/09/2017 secondary to fall. Patient has a past medical history of frequent falls secondary to chronic dizziness as a result of postconcussion syndrome, CAD, type 2 diabetes mellitus, hypertension. 1. Acute traumatic rhabdomyolysis, secondary to fall prior to admission and being down for 24+ hours-continue IV fluids. Creatinine is improving, remains on IV fluids, will possibly stop IV fluids tomorrow. 2. CANDI-secondary to #1, resolved, on IV fluids, repeat BMP in a.m. 3. Acute traumatic T12 fracture, secondary to mechanical fall prior to admission , seen on CT scan of the chest and also on MRI of the thoracic spine, Dr. Cunningham consulted, plans on doing kyphoplasty tomorrow, pain is fairly controlled. He will need to have workup and treatment for possible osteoporosis including DEXA scan and vitamin D evaluation. Check vitamin D level. 4. Debility, recurrent falls, denies secondary to BPPV, appreciate neurology consult, inpatient rehab for vestibular rehab recommended 5. CAD, will start patient on aspirin, statins, patient is intolerant of statins , check lipid profile in a.m. 6. Type 2 DM, BS are fairly controlled, on glipizide, Actos, Accu-Cheks with insulin sliding scale 7. Hypertension, controlled, lisinopril held on account of CANDI, will continue to monitor, possible resume lisinopril in am if renal function continues to improve. 8. DVT prophylaxis-Lovenox subcu. Code Visit Inpatient E&M: [id number] Subs Hosp L2
[2017-10-10] MEDS: Enoxaparin 40 MG/0.4 ML Syringe SC (09:31)
[2017-10-10] MEDS: Pioglitazone Hydrochloride 45 MG Tablet PO (09:31)
--- NOTE | 2017-10-10 10:12 | CASEMGMT ---
OSWALDO spoke with patient about placement. OSWALDO told him Medicare would pay for days 1-20 and after that there would be a daily co-pay. OSWALDO asked him about his monthly income and he gets around $2,000 a month. Therefore, he would not qualify for any extra help with his Medicare. OSWALDO asked him where he might be okay with going and he did not know. OSWALDO told him about [facility] and he was in agreement if a bed opens up. He was not sure about a second choice. Family arrived at that time and patient said he would like to visit with them. OSWALDO spoke with Hollie in TCU and at this time they do not have a bed, but this could change by the end of the day. OSWALDO will check back with Hollie at end of day to see if anything has changed. Chery YOUNGER MSW
--- NOTE | 2017-10-10 10:45 | CON.PCM_ITS ---
Reason for Consult Date of Consultation: 10/10/17 Reason for Consultation: dizzy and falls History of Present Illness: The patient is a 62 year old M presents with falls, has had chronic falls due to dizzyness which he describes as a sensation of motion with almost any movement, triggers dizziness. reports this has been present since a concussion 5 yrs ago and not prior. he describes his concussion as occuring due to a mechanical fall, hit his head, and one week later had onset of dizzyness while at a fun house. has seen a neurologist in [place] who diagnosed an otolith and tried repositioning maneuvers with no benefit. lives alone, doesnt work, has become very inactive due to his vertigo. fell in his bathroom suffered a t12 compression fracture, nondisplaced. was down for 9hrs. no history of joint replacement. vision ok. per admit h&p:The patient is a 62 year old M who has chronic dizziness due to a concussion that he had received 2 or 3 years ago. Patient was in the shower and fell with his dizziness. Today he landed on his side. This occurred on the . Patient was unable to get up but was finally able to get hold EMS and was brought to the hospital. Patient was found to have rhabdomyolysis with total creatinine kinase of 7. Patient had CAT scans of his chest abdomen and neck. Patient was found to have a T12 fracture. Patient does state he has having some pain when he takes deep breath in his anterior chest. Patient's states that he falls at least a couple times per week due to his chronic dizziness. His last fall was a few days prior to this event. Past Medical History Past Medical History (Chronic Problems): Chronic Problems Post concussion syndrome (Chronic) CAD (coronary artery disease) (Chronic) Vertigo (Chronic) DM2 (diabetes mellitus, type 2) (Chronic) Allergies Msewzer-Ios-Qzb Reductase Inhibitor Allergy (Verified 10/09/17 03:15) Swelling Home Medications: Ambulatory Orders Medication Instructions Recorded Metformin HCl [Glucophage] 1,000 mg PO BIDCM 07/21/13 Glipizide [Glucotrol] 10 mg PO DAILY 10/09/17 Lisinopril 20 mg PO DAILY 10/09/17 Pioglitazone HCl 45 mg PO DAILY 10/09/17 Surgical History: coronary bypass surgery Psychiatric History: No pertinent psych hx Lives: Alone Smoking Status: Former smoker Tobacco Use: Non-smoker Alcohol: Rare Drugs: None - *Family History Paternal History Items: Heart Disease Review of Systems Constitutional: Denies: Chills, Fever, Weight Change HEENT: Denies: Head Aches, Sinus Congestion, Sinus Drainage Cardiovascular: Denies: Chest Pain, Palpitations Respiratory: Denies: Cough, Shortness of breath at rest, Sputum production Gastrointestinal: Denies: Abdominal Pain, Nausea, Vomiting Genitourinary: Denies: Dysuria Musculoskeletal: Denies: Joint Pain, Joint Tenderness Skin: Denies: Rash, Wounds Neurological: Reports: Balance problems. Denies: Focal weakness, Numbness, Tingling Psychiatric: Denies: Anxiety, Depression, Homicidal Ideations, Suicidal Ideations Hematologic/ Lymphatic: Denies: Easy Bruising, Easy Bleeding Patient Problems: Active and Suspected Problems Rhabdomyolysis (Acute) CANDI (acute kidney injury) (Acute) Leukocytosis (Acute) - Physical Exam General: Alert, Oriented x3, Cooperative HEENT: Atraumatic, PERRLA, EOMI, Normocephalic Neck: Supple, No JVD, Negative Carotid Bruits Lungs: Clear to auscultation, Normal air movement Cardiovascular: Regular rate, No murmurs Abdomen: Bowel Sounds Present, Soft, Non Tender Extremities: No edema, Capillary Refill Less than 3 Seconds Skin: No rashes, No breakdown Musculoskeletal: No Tenderness to Palpation of Joints or Extremities Neurological: Cranial nerves II-XII grossly intact, - - decreased proprioception bilateral feet Psych/Mental Status: Normal Affect, Appropriate Vital Signs Temp Pulse Resp BP Pulse Ox 36.9 C 110 H 18 119/70 94 10/10/17 09:20 10/10/17 09:20 10/10/17 09:20 10/10/17 09:20 10/10/17 09:20 Oxygen Delivery Method Room Air Weight: 115.9 kg Body Mass Index (BMI) 36.6 Intake and Output for Last 24 Hours 10/08/17 10/09/17 10/10/17 23:59 23:59 23:59 Intake Total 4145 / 4145 1046 / 1046 Output Total 850 / 850 550 / 550 Balance 3295 / 3295 496 / 496 Laboratory Tests Past 24 Hrs 10/09/17 10/09/17 10/10/17 10:10 21:36 06:15 WBC 10.4 RBC 3.87 L Hgb 12.9 L Hct 39.3 L MCV 101.6 H MCH 33.3 H MCHC 32.8 RDW 14.6 RDW Differential 53.2 H Plt Count 131 L MPV 10.8 Immature Gran % (Auto) 0.300 Neut % (Auto) 70.5 H Lymph % (Auto) 18.2 L [place] % (Auto) 9.4 Eos % (Auto) 1.3 Baso % (Auto) 0.3 Absolute Neuts (auto) 7.3 Absolute Lymphs (auto) 1.89 Total Counted Not Reportable Sodium Potassium Chloride Carbon Dioxide Anion Gap BUN Creatinine Estim Creat Clear Calc Est GFR (MDRD) Af Amer Est GFR (MDRD) Non-Af BUN/Creatinine Ratio Glucose Calcium Total Creatine Kinase 1601 H 800 H 10/10/17 06:15 WBC RBC Hgb Hct MCV MCH MCHC RDW RDW Differential Plt Count MPV Immature Gran % (Auto) Neut % (Auto) Lymph % (Auto) [place] % (Auto) Eos % (Auto) Baso % (Auto) Absolute Neuts (auto) Absolute Lymphs (auto) Total Counted Sodium 142 Potassium 4.3 Chloride 108 H Carbon Dioxide 27.0 Anion Gap 7 BUN 19 H Creatinine 0.92 Estim Creat Clear Calc 83.76 Est GFR (MDRD) Af Amer 106 Est GFR (MDRD) Non-Af 88 BUN/Creatinine Ratio 20.6 H Glucose 149 H Calcium 8.1 L Total Creatine Kinase POC Glucose 10/10/17 10/09/17 10/09/17 06:43 21:03 16:44 POC Glucose 152 H 178 H 190 H 10/09/17 11:22 POC Glucose 244 H Current Home Med List Medication Instructions Recorded Confirmed Type Metformin HCl [Glucophage] 1,000 mg PO BIDCM 07/21/13 10/09/17 History Glipizide [Glucotrol] 10 mg PO DAILY 10/09/17 10/09/17 History Lisinopril 20 mg PO DAILY 10/09/17 10/09/17 History Pioglitazone HCl 45 mg PO DAILY 10/09/17 10/09/17 History Assessment/Plan Active and Suspected Problems Rhabdomyolysis (Acute) CANDI (acute kidney injury) (Acute) Leukocytosis (Acute) falls, multifactorial due to diabetic neuropathy, bppv, now complicated by thoracic compression fracture needs aggressive pt for gait and balance, consider rehab aggressive sugar control avoid sedatives
[2017-10-10 11:31] LABS: Bedside Glucose 147 mg/dL (70-110)
--- NOTE | 2017-10-10 12:19 | CASEMGMT ---
OSWALDO received a call from Nica in rehab and she said Dr Tran felt he would be a great rehab candidate. OSWALDO spoke with patient and he thinks it would be okay, but he is concerned because he cannot walk very well. OSWALDO told him they will work with him on this. He is getting a kyphoplasty tomorrow so we can see how that goes. Plan: Likely d/c to [facility] 4th floor rehab unit. Chery YOUNGER MSW
[2017-10-10] MEDS: Acetaminophen 500 MG Tablet 1000 MG PO ×2 (14:39→21:39)
[2017-10-10] MEDS: 0.9% Normal Saline 1,000 ML 75 ML IV (16:57)
[2017-10-10 17:06] LABS: Bedside Glucose 101 mg/dL (70-110)
[2017-10-10] MEDS: Calcium Carb/Vitamin D 1 TABLET Tablet PO (17:29)
[2017-10-10 18:16] LABS: Hemoglobin A1c 5.4 % (4.2-6.3)
[2017-10-10 22:01] LABS: Bedside Glucose 196 mg/dL (70-110)
[2017-10-11] VITALS (13 sets, daily range): BP systolic 150–165; BP diastolic 76–95; PULSE 79–106; RESP 14–18; TEMP 36.5–37.1; O2SAT 94–96; BMI 36.6
[2017-10-11] MEDS: oxyCODONE 5 MG Tablet PO ×3 (03:23→14:19)
[2017-10-11] MEDS: Acetaminophen 500 MG Tablet 1000 MG PO ×2 (05:03→14:18)
[2017-10-11] MEDS: 0.9% Normal Saline 1,000 ML 75 ML IV ×2 (05:03→14:30)
[2017-10-11 06:11] LABS: Cholesterol 161 mg/dL (200); High Density Lipoprotein 55 mg/dL; Triglycerides 120 mg/dL; Very Low Density Lipoprotein 24 mg/dL (5-40)
[2017-10-11 06:56] LABS: Bedside Glucose 139 mg/dL (70-110)
[2017-10-11] MEDS: glipiZIDE 10 MG Tablet PO (09:57)
[2017-10-11] MEDS: Pioglitazone Hydrochloride 45 MG Tablet PO (09:58)
[2017-10-11] MEDS: fentaNYL 25 MCG Patch TRANSDERM. (11:32)
--- NOTE | 2017-10-11 11:35 | CASEMGMT ---
Pt will likely be ready for discharge after the kyphoplasty, which is at 4pm this evening. OSWALDO called Nica in rehab to inquire if pt can come this evening, she states yes, as long as pt feels he is ready. OSWALDO let physician know, as long as pt is medically ready, he can go to rehab this evening after the kyphoplasty. Dr. Chase let pt know. Green sheet on chart in anticipation of discharge this evening, or tomorrow morning. RUTH Mckeon, VOCAL ARTIST
[2017-10-11 11:40] LABS: Bedside Glucose 120 mg/dL (70-110)
--- NOTE | 2017-10-11 11:48 | PCM.DC ---
- Discharge Diagnoses Current Active Problems: Current Active and Chronic Problems Rhabdomyolysis (Acute) CANDI (acute kidney injury) (Acute) Post concussion syndrome (Chronic) CAD (coronary artery disease) (Chronic) Vertigo (Chronic) DM2 (diabetes mellitus, type 2) (Chronic) Leukocytosis (Acute) Reason(s) for Visit for Discharge Instructions: Back pain You will use the following diet at home:: Calorie/Carbohydrate Controlled (specify 1200, 1400, etc), Cardiac Your food should be the consistency of: Regular Your liquids should be the consistency of: Regular/Thin Discharge Activity: Return to Normal Activity Allergies/Adverse Reactions: Allergies Flpwkwn-Bko-Gkh Reductase Inhibitor Allergy (Verified 10/09/17 03:15) Swelling Medications to take at Discharge Metformin HCl [Glucophage] 1,000 mg PO BIDCM 07/21/13 Glipizide [Glucotrol] 10 mg PO DAILY 10/09/17 Lisinopril 20 mg PO DAILY 10/09/17 Pioglitazone HCl 45 mg PO DAILY 10/09/17 Acetaminophen [Tylenol] 1,000 mg PO Q8 tablet 10/11/17 Calcium Carb/Vitamin D [Os-Saeed 500MG + D] 1 tablet PO DAILY@0800 tablet 10/11/17 Cholecalciferol (VIT D3) [Vitamin D3] 2,000 unit PO DAILY tablet 10/11/17 fentaNYL patch [Duragesic patch] 25 mcg TRANSDERM. Q3D 2 Days #5 patch 10/11/17 The following prescriptions were given: fentaNYL patch [Duragesic patch] 25 mcg TRANSDERM. Q3D 2 Days #5 patch Primary Care Physician: Maria Isabel Abreu MD [Primary Care Provider] - Please follow up with your Primary Care Physician in: within 2 weeks of discharge Proposed Discharge Date: 10/11/17
--- NOTE | 2017-10-11 11:49 | PCM.DC.SUM ---
Discharge Date and Diagnosis - Problem List Patient Problems: Active and Suspected Problems Rhabdomyolysis (Acute) CANDI (acute kidney injury) (Acute) Leukocytosis (Acute) Date of Admission: 10/09/17 Date of Discharge: 10/11/17 - Primary Discharge Diagnosis Active and Suspected Problems Rhabdomyolysis (Acute) CANDI (acute kidney injury) (Acute) Leukocytosis (Acute) - Secondary Discharge Diagnosis Chronic Problems Post concussion syndrome (Chronic) CAD (coronary artery disease) (Chronic) Vertigo (Chronic) DM2 (diabetes mellitus, type 2) (Chronic) Hospital Course and Treatment Imaging Results: Clinical Impression(s) from Imaging Studies Abdomen/Pelvis CT 10/09/17 03:31 IMPRESSION: Compression fracture of T12. Electronically Signed: Kianna Goodman MD at 5:08 EDT Tel , Service support , Brain CT 10/09/17 03:31 IMPRESSION: Chronic involutional changes of the brain. Electronically Signed: Kianna Goodman MD at 4:36 EDT Tel , Service support , Cervical Spine CT 10/09/17 03:31 IMPRESSION: No acute osseous injury is evident. Comment: MRI is more sensitive than CT in detecting cord injury, ligament injury, and epidural hematoma. If there is continued clinical concern for any of these entities, MRI correlation should be considered if possible. Electronically Signed: Ricky Foreman MD at 4:46 EDT Tel , Service support , Chest CT 10/09/17 03:32 IMPRESSION: Incompletely imaged fracture of T12. Otherwise, no CT evidence of acute injury involving the chest. Electronically Signed: Ricky Foreman MD at 4:35 EDT Tel , Service support , Thoracic Spine MRI 10/09/17 06:45 IMPRESSION: Acute T12 fracture. 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 Electronically Signed: Patsy Pemberton MD at 15:49 EDT Tel , Service support , Consultations 10/10/17 07:35 Consult: Onc/Wound/credentialing manager Routine Comment: Comments:: B/L knee abrasions, Redness/discoloration noted to toes Operations: - - s/p kyphoplasty(10/11/17) Procedures: None Summary of Care Provided: 62-year-old male admitted on 10/09/2017 secondary to fall. Patient has a past medical history of frequent falls secondary to chronic dizziness, history of postconcussion syndrome, CAD, type 2 diabetes mellitus, hypertension. 1. Acute traumatic rhabdomyolysis, secondary to fall prior to admission, he was down for 24+ hours, managed with IV fluids with improvement in Cr and CK. 2. CANDI-secondary to #1, resolved, managed on IV fluids, needs repeat BMP in the outpatient. 3. Acute traumatic T12 fracture, secondary to mechanical fall prior to admission, unclear if related to osteoporosis, seen on CT scan of the chest and MRI of the thoracic spine. Patient will be getting a kyphplasty on 10/11/17, prior to discharge by Dr. Cunningham. He will need to have workup and treatment for possible osteoporosis including DEXA scan and vitamin D evaluation. Vitamin D levels are pending. Started on vitamin D/calcium. 4. Debility, recurrent falls, dizziness secondary to BPPV, neurology consulted, will go for inpatient rehab for therapy. 5. CAD,on aspirin, statins, patient is intolerant of statins 6. Type 2 DM, on glipizide, Actos 7. Hypertension, controlled, lisinopril held initially on account of CANDI. Discharge Diet: Low fat/ Low Cholesterol, 2000 mg Sodium Diet, Carb Control Diet Discharge Activity: Return to Normal Activity Home Medications: Medications to take at Discharge Metformin HCl [Glucophage] 1,000 mg PO BIDCM 07/21/13 Glipizide [Glucotrol] 10 mg PO DAILY 10/09/17 Lisinopril 20 mg PO DAILY 10/09/17 Pioglitazone HCl 45 mg PO DAILY 10/09/17 Acetaminophen [Tylenol] 1,000 mg PO Q8 tablet 10/11/17 Calcium Carb/Vitamin D [Os-Saeed 500MG + D] 1 tablet PO DAILY@0800 tablet 10/11/17 Cholecalciferol (VIT D3) [Vitamin D3] 2,000 unit PO DAILY tablet 10/11/17 fentaNYL patch [Duragesic patch] 25 mcg TRANSDERM. Q3D 2 Days #5 patch 10/11/17 Following Prescrptions Were Given to Patient: fentaNYL patch [Duragesic patch] 25 mcg TRANSDERM. Q3D 2 Days #5 patch Primary Care Physician: Maria Isabel Abreu MD [Primary Care Provider] - Please follow up with your Primary Care Physician in: within 2 weeks of discharge Disposition: Inpt Rehab Unit/Facility Minutes spent on discharge:: 45 Patient Condition:: Stable Medical Necessity - Tobacco Use Smoking Status: Former smoker Tobacco Use: Non-smoker Meaningful Use Info Meaningful Use Diagnoses (Choose all that apply): None applicable Code Visit Inpatient E&M: 71707 Disch Hosp
--- NOTE | 2017-10-11 14:38 | NURSING ---
report called to AC
[2017-10-11 15:01] LABS: Bedside Glucose 80 mg/dL (70-110)
--- NOTE | 2017-10-11 15:08 | RAD_ITS ---
STUDY: X-RAY - THORACIC SPINE REASON FOR EXAM: Male, 62 years old. Thoracic epidural TECHNIQUE: 1 fluoroscopic view(s) of the thoracic spine were obtained. COMPARISON: None. FINDINGS: Fluoroscopic guidance was provided during a epidural injection. RAD/Spine 1 View Any Level IMPRESSION: As above. Electronically Signed: Harlan Streeter, at 16:03 EDT Tel , Service support ,
[2017-10-11] MEDS: Triamcinolone Acetonide 40 MG/ML Vial (15:17)
[2017-10-15 12:50] LABS: Vitamin D 1,25-Dihydroxy 37.2 pg/mL (19.9-79.3)
== END 2017-10-11 17:23 | DRG 565 ==
LOC: ED 04:12 → PCU 06:23
PROVIDERS: Anesthesiology Pain Medicine; Emergency Provider Emergency Medicine; Family Provider Family Medicine; PCP Family Medicine; Visit Provider Internal Medicine
PROC: 3E0S3BZ Introduction of Anesthetic Agent into Epidural Space, Percutaneous Approach (ICD-10-PCS; principal; 2017-10-11 15:55)
DX: T79.6XXA Traumatic ischemia of muscle, initial encounter (principal); N17.9 Acute kidney failure, unspecified; S22.089A Unspecified fracture of T11-T12 vertebra, initial encounter for closed fracture; I10 Essential (primary) hypertension; F07.81 Postconcussional syndrome; R42 Dizziness and giddiness; I25.10 Atherosclerotic heart disease of native coronary artery without angina pectoris; E11.9 Type 2 diabetes mellitus without complications; W18.30XA Fall on same level, unspecified, initial encounter
CPT/HCPCS: 36415; 64490; 70450; 71260; 72020; 72125; 72146; 74177; 80048; 80061; 80076; 80307; 80320; 81001; 82550; 82652; 82962; 83036; 83605; 84484; 85025; 85610; 85730; 87040; 93005; 97116; 97162; 97165; 97530; 99285; J7030; Q9967; A4216; G0480; J2405

== ENCOUNTER 2017-10-11 17:48 | Inpatient (IN) | payer MEDICARE, SELFPAY ==
[2017-10-11 18:39] VITALS: BP 124/83; PULSE 105; RESP 18; TEMP 36.6; O2SAT 95; BMI 37.4
[2017-10-11 22:00] VITALS: BP 124/83; PULSE 105; RESP 18; TEMP 36.6; O2SAT 95
[2017-10-11] MEDS: oxyCODONE 5 MG Tablet PO (22:17)
[2017-10-11] MEDS: fentaNYL 25 MCG Patch TRANSDERM. (22:18)
[2017-10-11] MEDS: Senna/Docusate Sodium 1 Tablet 2 TABLET PO (22:21)
[2017-10-12 05:30] VITALS: O2SAT 97
[2017-10-12 06:55] LABS: Bedside Glucose 213 mg/dL (70-110)
--- NOTE | 2017-10-12 07:26 | NURSING ---
Duragesic patch present on patient on admit to [facility] (applied while in PCU) found falling off pt. Patch replaced at hs - previous patch from PCU now wasted (flushed down toilet). Pascale Esposito RN witnessed.
[2017-10-12 07:40] VITALS: BP 157/94; PULSE 68; RESP 16; TEMP 36.8; O2SAT 96
[2017-10-12] MEDS: metFORMIN HCl 1,000 MG Tablet 1000 MG PO ×2 (08:03→16:10)
[2017-10-12] MEDS: Lisinopril 20 MG Tablet PO (08:03)
[2017-10-12] MEDS: glipiZIDE 10 MG Tablet PO (08:03)
[2017-10-12] MEDS: Senna/Docusate Sodium 1 Tablet 2 TABLET PO ×2 (08:03→21:48)
[2017-10-12] MEDS: Pioglitazone Hydrochloride 45 MG Tablet PO (08:03)
[2017-10-12] MEDS: Calcium Carb/Vitamin D 1 TABLET Tablet PO (08:04)
[2017-10-12] MEDS: Enoxaparin 40 MG/0.4 ML Syringe SC (08:04)
[2017-10-12 11:41] LABS: Bedside Glucose 109 mg/dL (70-110)
[2017-10-12] MEDS: Magnesium Hydroxide 30 ML UDC PO (15:24)
[2017-10-12] MEDS: NYSTATIN 500,000 UNIT/5 ML UDC 500000 UNIT PO ×2 (16:10→21:48)
[2017-10-12] MEDS: oxyCODONE 5 MG Tablet PO (16:13)
--- NOTE | 2017-10-12 21:08 | NURSING ---
pt called out philatelic consultant light at 8:45 pm requesting dinner. pm nurses were not aware that pt did not receive dinner. pt meal tray given- first choice meal on tray (pt stated not what he ordered). pt stated that he does not eat any pork product or wheat bread. pt was unable to eat first choice meal tray. spring assembler supervisor contacted- advised to get meal tray from TCU. this nurse obtained meal for pt. RN aware of situation.
[2017-10-12 21:55] VITALS: BP 136/74; PULSE 74; RESP 18; TEMP 36.8; O2SAT 98
--- NOTE | 2017-10-13 01:29 | NURSING ---
Agree with SIGNAL MAINTAINER HELPER documentation and FIMS charting
[2017-10-13] MEDS: oxyCODONE 5 MG Tablet PO ×3 (06:06→16:48)
[2017-10-13 07:15] VITALS: O2SAT 96
[2017-10-13 07:23] VITALS: BP 143/86; PULSE 78; RESP 17; TEMP 36.4; O2SAT 97
[2017-10-13] MEDS: Calcium Carb/Vitamin D 1 TABLET Tablet PO (07:28)
[2017-10-13] MEDS: glipiZIDE 10 MG Tablet PO (07:28)
[2017-10-13] MEDS: Pioglitazone Hydrochloride 45 MG Tablet PO (07:28)
[2017-10-13] MEDS: metFORMIN HCl 1,000 MG Tablet 1000 MG PO ×2 (07:28→16:47)
[2017-10-13] MEDS: Senna/Docusate Sodium 1 Tablet 2 TABLET PO (07:29)
[2017-10-13] MEDS: Enoxaparin 40 MG/0.4 ML Syringe SC (07:29)
[2017-10-13] MEDS: Lisinopril 20 MG Tablet PO (07:29)
[2017-10-13] MEDS: NYSTATIN 500,000 UNIT/5 ML UDC 500000 UNIT PO ×4 (07:29→20:40)
[2017-10-13] MEDS: fentaNYL 25 MCG Patch TRANSDERM. (07:30)
--- NOTE | 2017-10-13 11:25 | NURSING ---
this nurse discussed bowel protocol and no bm since 10/06. patient had not results from mom given yesterday. patient refused Dulcolax suppository and or soap suds enema. patient is willing to take mom and prune juice at this time.
[2017-10-13] MEDS: Magnesium Hydroxide 30 ML UDC PO (11:27)
--- NOTE | 2017-10-13 12:40 | PCM.HP.STD ---
History of Present Illness Date of Admission: 10/13/17 Chief Complaint: Dizziness The patient is a 62 year old male with a long history of benign paroxysmal positional vertigo which has become so severe and compounded by severe diabetic neuropathy that he has become increasingly debilitated and homebound at home to the extent that his balance has become very tenuous. He experiences spell at home and fell in his bathroom leading to a thoracic fracture. He had severe pain, and the hospital his fracture was treated with kyphoplasty, he has improved significantly and now presents to the rehab unit for further rehabilitation in order to return home hopefully better than his previous functional status. He lives alone in his own apartment. His vertigo was diagnosed years ago and has been treated relatively non-aggressively. Past Medical History Past Medical History (Chronic Problems): Chronic Problems Post concussion syndrome (Chronic) CAD (coronary artery disease) (Chronic) Vertigo (Chronic) DM2 (diabetes mellitus, type 2) (Chronic) Allergies Swqcxrv-Pet-Ckc Reductase Inhibitor Allergy (Verified 10/09/17 03:15) Swelling Home Medications: Ambulatory Orders Medication Instructions Recorded Metformin HCl [Glucophage] 1,000 mg PO BIDCM 07/21/13 Glipizide [Glucotrol] 10 mg PO DAILY 10/09/17 Lisinopril 20 mg PO DAILY 10/09/17 Pioglitazone HCl 45 mg PO DAILY 10/09/17 Acetaminophen [Tylenol] 1,000 mg PO Q8 PRN 10/11/17 Calcium Carb/Vitamin D [Os-Saeed 1 tablet PO DAILY@0800 10/11/17 500MG + D] Cholecalciferol (VIT D3) [Vitamin 2,000 unit PO DAILY 10/11/17 D3] fentaNYL patch [Duragesic patch] 25 mcg TRANSDERM. Q3D 10/11/17 Surgical History: coronary bypass surgery Psychiatric History: No pertinent psych hx Smoking Status: Former smoker Tobacco Use: Cigarettes - *Family History Paternal History Items: Heart Disease Review of Systems Constitutional: Denies: Chills, Fever, Weight Change HEENT: Denies: Head Aches, Sinus Congestion, Sinus Drainage Cardiovascular: Denies: Chest Pain, Palpitations Respiratory: Denies: Cough, Shortness of breath at rest, Sputum production Gastrointestinal: Denies: Abdominal Pain, Nausea, Vomiting Genitourinary: Denies: Dysuria Musculoskeletal: Denies: Joint Pain, Joint Tenderness Skin: Denies: Rash, Wounds Neurological: Reports: Balance problems. Denies: Focal weakness, Numbness, Tingling Psychiatric: Denies: Anxiety, Depression, Homicidal Ideations, Suicidal Ideations Hematologic/ Lymphatic: Denies: Easy Bruising, Easy Bleeding VTE Information - Inpt Only VTE Present on Admission: Yes - Physical Exam General: Alert, Oriented x3, Cooperative HEENT: Atraumatic, PERRLA, EOMI, Normocephalic Neck: Supple, No JVD, Negative Carotid Bruits Lungs: Clear to auscultation, Normal air movement Cardiovascular: Regular rate, No murmurs Abdomen: Bowel Sounds Present, Soft, Non Tender Extremities: No edema, Capillary Refill Less than 3 Seconds Skin: No rashes, No breakdown Musculoskeletal: No Tenderness to Palpation of Joints or Extremities Neurological: Cranial nerves II-XII grossly intact Psych/Mental Status: Normal Affect, Appropriate Vital Signs Temp Pulse Resp BP Pulse Ox 36.4 C L 78 17 143/86 H 97 10/13/17 07:23 10/13/17 07:23 10/13/17 07:23 10/13/17 07:23 10/13/17 07:23 Oxygen Delivery Method Room Air Weight: 118.3 kg Body Mass Index (BMI) 37.4 Finger Stick Blood Glucose 297 Intake and Output for Last 24 Hours 10/11/17 10/12/17 10/13/17 23:59 23:59 23:59 Intake Total 380 / 380 560 / 560 240 / 240 Output Total 400 / 400 350 / 350 Balance -20 / -20 210 / 210 240 / 240 Current Medications Generic Name Dose Route Start Last Admin Trade Name Leopoldoq PRN Reason Stop Dose Admin Acetaminophen 1,000 mg 10/11/17 18:54 Tylenol PO Q8 PRN PAIN Bisacodyl 10 mg 10/11/17 18:55 Dulcolax RECTAL .PRN X 1 PRN Constipation Calcium/Vitamin D 1 tablet 10/12/17 08:00 10/13/17 07:28 Os-Saeed 500mg + D PO 1 tablet DAILY@0800 [facility] Administration Cholecalciferol 2,000 unit 10/12/17 10:00 10/13/17 07:29 Vitamin D PO 2,000 unit DAILY ADEN Administration Enoxaparin Sodium 40 mg 10/14/17 06:00 Lovenox SC DAILY@0600 [facility] Fentanyl 25 mcg 10/16/17 07:30 Duragesic Patch TRANSDERM. Q3D ADEN Glipizide 10 mg 10/12/17 08:00 10/13/17 07:28 Glucotrol PO 10 mg DAILYCM ADEN Administration Losartan Potassium 50 mg 10/14/17 10:00 Cozaar PO DAILY [facility] Magnesium Hydroxide 30 ml 10/11/17 18:55 10/13/17 11:27 Milk Of Magnesia PO 30 ml .PRN X 1 PRN Administration Constipation Metformin HCl 1,000 mg 10/12/17 08:00 10/13/17 07:28 Glucophage PO 1,000 mg BIDCM ADEN Administration Nystatin 500,000 unit 10/12/17 15:30 10/13/17 07:29 Nystatin PO 10/19/17 15:31 500,000 unit 4X/DAY ADEN Administration Oxycodone HCl 5 mg 10/11/17 18:59 10/13/17 11:29 Oxyir PO 5 mg Q4H PRN PRN Administration SEVERE PAIN (6-10/10) Pioglitazone HCl 45 mg 10/12/17 10:00 10/13/17 07:28 Actos PO 45 mg DAILY ADEN Administration Senna/Docusate Sodium 2 tablet 10/11/17 22:00 10/13/17 07:29 Senokot-S, [place]-Colace PO 2 tablet BID ADEN Administration Assessment/Plan Debility status post fall with thoracic compression fracture confounded by diabetic neuropathy and chronic severe benign positional vertigo. Goal of rehab is yarsani of prior level of functional independence Plan: Physical therapy for gait and balance and vertigo Occupational Therapy for ADLs Bowel protocol, he has been constipated for 6 days. As needed analgesics: Pain is improved, will discontinue his fentanyl patch today Cough: Presumably due to lisinopril. Will change this to losartan DVT prophylaxis: Lovenox Diabetes: Monitor sugars and treat as necessary
--- NOTE | 2017-10-13 12:44 | HP.PCM_ITS ---
History of Present Illness Date of Admission: 10/13/17 Chief Complaint: Dizziness The patient is a 62 year old male with a long history of benign paroxysmal positional vertigo which has become so severe and compounded by severe diabetic neuropathy that he has become increasingly debilitated and homebound at home to the extent that his balance has become very tenuous. He experiences spell at home and fell in his bathroom leading to a thoracic fracture. He had severe pain, and the hospital his fracture was treated with kyphoplasty, he has improved significantly and now presents to the rehab unit for further rehabilitation in order to return home hopefully better than his previous functional status. He lives alone in his own apartment. His vertigo was diagnosed years ago and has been treated relatively non-aggressively. Past Medical History Past Medical History (Chronic Problems): Chronic Problems Post concussion syndrome (Chronic) CAD (coronary artery disease) (Chronic) Vertigo (Chronic) DM2 (diabetes mellitus, type 2) (Chronic) Allergies Afaygke-Lhg-Cvf Reductase Inhibitor Allergy (Verified 10/09/17 03:15) Swelling Home Medications: Ambulatory Orders Medication Instructions Recorded Metformin HCl [Glucophage] 1,000 mg PO BIDCM 07/21/13 Glipizide [Glucotrol] 10 mg PO DAILY 10/09/17 Lisinopril 20 mg PO DAILY 10/09/17 Pioglitazone HCl 45 mg PO DAILY 10/09/17 Acetaminophen [Tylenol] 1,000 mg PO Q8 PRN 10/11/17 Calcium Carb/Vitamin D [Os-Saeed 1 tablet PO DAILY@0800 10/11/17 500MG + D] Cholecalciferol (VIT D3) [Vitamin 2,000 unit PO DAILY 10/11/17 D3] fentaNYL patch [Duragesic patch] 25 mcg TRANSDERM. Q3D 10/11/17 Surgical History: coronary bypass surgery Psychiatric History: No pertinent psych hx Smoking Status: Former smoker Tobacco Use: Cigarettes - *Family History Paternal History Items: Heart Disease Review of Systems Constitutional: Denies: Chills, Fever, Weight Change HEENT: Denies: Head Aches, Sinus Congestion, Sinus Drainage Cardiovascular: Denies: Chest Pain, Palpitations Respiratory: Denies: Cough, Shortness of breath at rest, Sputum production Gastrointestinal: Denies: Abdominal Pain, Nausea, Vomiting Genitourinary: Denies: Dysuria Musculoskeletal: Denies: Joint Pain, Joint Tenderness Skin: Denies: Rash, Wounds Neurological: Reports: Balance problems. Denies: Focal weakness, Numbness, Tingling Psychiatric: Denies: Anxiety, Depression, Homicidal Ideations, Suicidal Ideations Hematologic/ Lymphatic: Denies: Easy Bruising, Easy Bleeding VTE Information - Inpt Only VTE Present on Admission: Yes - Physical Exam General: Alert, Oriented x3, Cooperative HEENT: Atraumatic, PERRLA, EOMI, Normocephalic Neck: Supple, No JVD, Negative Carotid Bruits Lungs: Clear to auscultation, Normal air movement Cardiovascular: Regular rate, No murmurs Abdomen: Bowel Sounds Present, Soft, Non Tender Extremities: No edema, Capillary Refill Less than 3 Seconds Skin: No rashes, No breakdown Musculoskeletal: No Tenderness to Palpation of Joints or Extremities Neurological: Cranial nerves II-XII grossly intact Psych/Mental Status: Normal Affect, Appropriate Vital Signs Temp Pulse Resp BP Pulse Ox 36.4 C L 78 17 143/86 H 97 10/13/17 07:23 10/13/17 07:23 10/13/17 07:23 10/13/17 07:23 10/13/17 07:23 Oxygen Delivery Method Room Air Weight: 118.3 kg Body Mass Index (BMI) 37.4 Finger Stick Blood Glucose 297 Intake and Output for Last 24 Hours 10/11/17 10/12/17 10/13/17 23:59 23:59 23:59 Intake Total 380 / 380 560 / 560 240 / 240 Output Total 400 / 400 350 / 350 Balance -20 / -20 210 / 210 240 / 240 Current Medications Generic Name Dose Route Start Last Admin Trade Name Leopoldoq PRN Reason Stop Dose Admin Acetaminophen 1,000 mg 10/11/17 18:54 Tylenol PO Q8 PRN PAIN Bisacodyl 10 mg 10/11/17 18:55 Dulcolax RECTAL .PRN X 1 PRN Constipation Calcium/Vitamin D 1 tablet 10/12/17 08:00 10/13/17 07:28 Os-Saeed 500mg + D PO 1 tablet DAILY@0800 [facility] Administration Cholecalciferol 2,000 unit 10/12/17 10:00 10/13/17 07:29 Vitamin D PO 2,000 unit DAILY ADEN Administration Enoxaparin Sodium 40 mg 10/14/17 06:00 Lovenox SC DAILY@0600 [facility] Fentanyl 25 mcg 10/16/17 07:30 Duragesic Patch TRANSDERM. Q3D ADEN Glipizide 10 mg 10/12/17 08:00 10/13/17 07:28 Glucotrol PO 10 mg DAILYCM ADEN Administration Losartan Potassium 50 mg 10/14/17 10:00 Cozaar PO DAILY [facility] Magnesium Hydroxide 30 ml 10/11/17 18:55 10/13/17 11:27 Milk Of Magnesia PO 30 ml .PRN X 1 PRN Administration Constipation Metformin HCl 1,000 mg 10/12/17 08:00 10/13/17 07:28 Glucophage PO 1,000 mg BIDCM ADEN Administration Nystatin 500,000 unit 10/12/17 15:30 10/13/17 07:29 Nystatin PO 10/19/17 15:31 500,000 unit 4X/DAY ADEN Administration Oxycodone HCl 5 mg 10/11/17 18:59 10/13/17 11:29 Oxyir PO 5 mg Q4H PRN PRN Administration SEVERE PAIN (6-10/10) Pioglitazone HCl 45 mg 10/12/17 10:00 10/13/17 07:28 Actos PO 45 mg DAILY ADEN Administration Senna/Docusate Sodium 2 tablet 10/11/17 22:00 10/13/17 07:29 Senokot-S, [place]-Colace PO 2 tablet BID ADEN Administration Assessment/Plan Debility status post fall with thoracic compression fracture confounded by diabetic neuropathy and chronic severe benign positional vertigo. Goal of rehab is druze of prior level of functional independence Plan: Physical therapy for gait and balance and vertigo Occupational Therapy for ADLs Bowel protocol, he has been constipated for 6 days. As needed analgesics: Pain is improved, will discontinue his fentanyl patch today Cough: Presumably due to lisinopril. Will change this to losartan DVT prophylaxis: Lovenox Diabetes: Monitor sugars and treat as necessary
--- NOTE | 2017-10-13 12:45 | REHABEVAL_ITS ---
Admission Information Status Changes from Prescreening?: No changes Identified Actual Problem List:: Falls, Skin Intergrity, Pain, ALteration in Cmfrt, Bowel, Constipation, Mobility Impaired, Self Care Deficit, Diabetes, Hyperglycemia, BP , Hypertension, Ineffect.D/C Plan r/t Psy Potential Problem List:: DVT, Bleeding, Infection, UTI, Aspiration, Falls, Skin Integrity, Depression Risk of Complications DVT: LMWH, NYASIA Hose, Sequential Compression Device Bleeding: Monitor Lab Values, Nursing to Teach Precautions for anti-coagulation therapy., Wound, if applicable, to be assessed every shift., Stroke patients assessed for lethargy or change in status. Infection: Clinical Staff to Monitor for S/S of infection:, S/S of infection include fever, redness, warmth, etc. Urinary Tract Infection: Monitor for frequency, burning, discomfort, or incontinence., Nursing will obtain urine sample for urinalysis and C&S when ordered. Aspiration: Clinical staff will monitor for coughing, drooling, congestion., Speech will evaluate swallowing and dsyphasia., Nursing will monitor patient swallowing during meals. Falls: Patient will be evaluated for Fall Precautions, Patient will be placed on Fall Precautions as indicated per protocol. Skin Breakdown: Nursing will assess skin daily using assessment tool., Nursing will place on Skin Breakdown Precautions as indicated. Pain: Clinical staff will assess patient's pain level per protocol., Medications will be given, if needed, and the pain level reassessed., Other methods: Massage, distraction, decrease stimulus, etc. used PRN. Plan of Care Patient requires physician specializing in physical medicine and rehab oversight to provide close medical supervision of rehab issues including: Pain Management, Sleep Problems, Bowel and Bladder, Medical and co-morbidity Management, DVT prophylaxis, Rehabilitation Leadership, Coordination of treatment team Patient needs Physical Therapy: For a minimum of 1 hour, At least 5 out of 7 days Patient needs Physical Therapy to improve:: Mobility, Mobility, Mobility, Strengthening, Transfers, Stretching, ROM, Endurance, Stairs, Gait, Balance Patient needs Occupational Therapy: For a minimum of 1 hour, At least 5 out of 7 days Patient needs Occupational Therapy to improve ADL's incl.: Eating, Grooming, Bathing, Dressing, Toileting, Toilet transfers, Community Reintegration, Higher functioning activities, Household tasks, Adaptive Equipment, Splinting, Other activities as determined Patient requires 17/12 Rehabilitation Nursing for: Pain Issues, Identifying and preventing risk factors, Monitoring and reporting current medical conditions, Assisting with ambulation, transfer, and all ADL's, Teaching patients about disease process and medications, Family teaching, Providing safe environment, Bowel and Bladder Issues, Skin integrity, Medication Management Patient needs Sheet Ironworker/ Case Management for: Discharge Planning, Arranging Home Equipment or Services, Family Interventions Patient needs Dietary and Nutrition Services for: Adequate Nutrition, Nutritional Supplements, Nutritional Education Goals Patient will remain: free from falls, or injury at time of discharge. Patient will perform bed mobility at: MOD I level of assist. Patient will complete transfers from bed to chair at: MOD I level of assist. Patient will ambulate: 100 feet, with MOD I assist, with LRD Patient will complete upper body dressing at: MOD I level of assist. Patient will complete lower body dressing at: MOD I level of assist. Patient will complete toileting at: MOD I level of assist. Patient will perform bathing at: MOD I level of assist. Patient will complete grooming at: MOD I level of assist. Patient will complete home management skills at: MOD I level of assist. Patient will achieve: 12 stairs, at MOD I assist Patient will have pain level of: of 3 or less Patient's skin will: remain intact, free from infection. Patient will receive: adequate nutrition. Discharge Planning Pt Prognosis for Sig. Practical Improv. w/in Reasonable Time: Good Anticipated D/C Destination: Home with Outpt Therapy Was Preadmission Assessment Accurate?: Yes
--- NOTE | 2017-10-13 13:17 | NURSING ---
patient had concerns about a dry intermittent cough > 1 year after starting lisinopril. LCTA, post. denies sob, rhinorrhea, nasal congestion, chest pain or tightness sputum production or blood noted with cough. dr maya aware, new order to d/c lisinopril and start losartan potassium 50 mg daily.
--- NOTE | 2017-10-13 13:20 | NURSING ---
patient had extra large soft bowel movement.
[2017-10-13 20:40] VITALS: BP 121/71; PULSE 97; RESP 16; TEMP 36.6; O2SAT 95
[2017-10-14] MEDS: oxyCODONE 5 MG Tablet PO ×3 (00:37→14:14)
--- NOTE | 2017-10-14 01:26 | NURSING ---
Pt unable to sleep and uncomfortable in recliner. Pt walked by staff half way around unit and requested pain meds. Oxy provided for 7/10 pain in back. Pt repositioned in recliner and provided hot tea.
--- NOTE | 2017-10-14 01:36 | NURSING ---
Reviewed and agree with GEAR GENERATOR SET UP OPERATOR documentation and FIMS charting
[2017-10-14] MEDS: Acetaminophen 500 MG Tablet 1000 MG PO (03:45)
--- NOTE | 2017-10-14 03:54 | NURSING ---
patient found with PA off multiple times this shift, educated as to why this is needed, patient relates will continue to remove from self after staff leaves room. will continue to monitor. michaela
[2017-10-14] MEDS: Enoxaparin 40 MG/0.4 ML Syringe SC (06:11)
[2017-10-14 06:55] VITALS: O2SAT 95
[2017-10-14 07:21] VITALS: BP 149/85; PULSE 94; RESP 17; TEMP 36.4; O2SAT 95
[2017-10-14] MEDS: NYSTATIN 500,000 UNIT/5 ML UDC 500000 UNIT PO ×4 (08:09→21:10)
[2017-10-14] MEDS: Losartan Potassium 50 MG Tablet PO (08:09)
[2017-10-14] MEDS: Calcium Carb/Vitamin D 1 TABLET Tablet PO (08:09)
[2017-10-14] MEDS: glipiZIDE 10 MG Tablet PO (08:09)
[2017-10-14] MEDS: Pioglitazone Hydrochloride 45 MG Tablet PO (08:09)
[2017-10-14] MEDS: metFORMIN HCl 1,000 MG Tablet 1000 MG PO ×2 (08:09→16:08)
[2017-10-14] MEDS: Senna/Docusate Sodium 1 Tablet 2 TABLET PO ×2 (08:12→21:10)
--- NOTE | 2017-10-14 10:22 | PN.NEURO_ITS ---
Subjective: Patient seen and examined. His pain is currently a 6/7 out of 10, his fentanyl patch was d/c'd 2/2 to pain being better controlled, and now his pain has increased once again, will restart patch at the previous dose. Other reyes he is doing well, tolerating therapy. No issues with GI/. - Physical Exam General: Alert, Oriented x3, Cooperative HEENT: Atraumatic, PERRLA, EOMI, Normocephalic Neck: Supple, No JVD, Negative Carotid Bruits Lungs: Clear to auscultation, Normal air movement Cardiovascular: Regular rate, No murmurs Abdomen: Bowel Sounds Present, Soft, Non Tender Extremities: No edema, Capillary Refill Less than 3 Seconds Skin: No rashes, No breakdown Musculoskeletal: No Tenderness to Palpation of Joints or Extremities Neurological: Cranial nerves II-XII grossly intact Psych/Mental Status: Normal Affect, Appropriate, Alert and oriented to time, place, person, mood and affect Vital Signs Temp Pulse Resp BP Pulse Ox 97.6 F L 94 17 149/85 H 95 10/14/17 07:21 10/14/17 07:21 10/14/17 07:21 10/14/17 07:21 10/14/17 07:21 Oxygen Delivery Method Room Air Weight: 118.3 kg Body Mass Index (BMI) 37.4 Finger Stick Blood Glucose 297 Intake and Output for Last 24 Hours 10/12/17 10/13/17 10/14/17 23:59 23:59 23:59 Intake Total 560 / 560 480 / 480 320 / 320 Output Total 350 / 350 700 / 700 Balance 210 / 210 480 / 480 -380 / -380 Active Medications Bisacodyl (Dulcolax) 10 mg RECTAL .PRN X 1 PRN PRN Reason: Constipation Calcium/Vitamin D (Os-Saeed 500mg + D) 1 tablet PO DAILY@0800 [facility] Last Admin: 10/14/17 08:09 Dose: 1 tablet Cholecalciferol (Vitamin D) 2,000 unit PO DAILY [facility] Last Admin: 10/14/17 08:09 Dose: 2,000 unit Enoxaparin Sodium (Lovenox) 40 mg SC DAILY@0600 [facility] Last Admin: 10/14/17 06:11 Dose: 40 mg Glip[facility] ([facility]) [facility] Last Admin: 10/14/17 08:09 Dose: 10 mg Ibuprofen (Motrin) 200 mg PO Q4H PRN PRN PRN Reason: MILD PAIN (1-3/10) Losartan Potassium (Cozaar) 50 mg PO DAILY [facility] Last Admin: 10/14/17 08:09 Dose: 50 mg Magnesium Hydroxide (Milk Of Magnesia) 30 ml PO .PRN X 1 PRN PRN Reason: Constipation Last Admin: 10/13/17 11:27 Dose: 30 ml Metformin HCl (Glucophage) [facility] Last Admin: 10/14/17 08:09 Dose: 1,000 mg Nystatin (Nystatin) 500,000 unit PO 4X/DAY [facility] Stop: 10/19/17 15:31 Last Admin: 10/14/17 08:09 Dose: 500,000 unit Oxycodone HCl (Oxyir) 5 mg PO Q4H PRN PRN PRN Reason: SEVERE PAIN (6-10/10) Last Admin: 10/14/17 08:11 Dose: 5 mg Pioglitazone HCl (Actos) 45 mg PO DAILY [facility] Last Admin: 10/14/17 08:09 Dose: 45 mg Senna/Docusate Sodium (Senokot-S, [place]-Colace) 2 tablet PO BID [facility] Last Admin: 10/14/17 08:12 Dose: 1 tablet Medical Necessity - Tobacco Use Smoking Status: Former smoker Tobacco Use: Cigarettes Assessment/Plan Debility status post fall with thoracic compression fracture confounded by diabetic neuropathy and chronic severe benign positional vertigo. Goal of rehab is mormon of prior level of functional independence Plan: Physical therapy for gait and balance and vertigo Occupational Therapy for ADLs Bowel protocol, he has been constipated for 6 days. As needed analgesics: continue his fentanyl patch Cough: Presumably due to lisinopril. Will change this to losartan DVT prophylaxis: Lovenox Diabetes: Monitor sugars and treat as necessary
[2017-10-14] MEDS: Ibuprofen 200 MG Tablet PO (11:06)
[2017-10-14 15:11] LABS: Bedside Glucose 274 mg/dL (70-110)
[2017-10-14 19:51] VITALS: BP 138/74; PULSE 86; RESP 17; TEMP 36.4; O2SAT 96
--- NOTE | 2017-10-15 00:07 | NURSING ---
PT HAS BEEN SLEEPING WELL AND AWAKE NOW TO VOID. MOIST COUGH AND PT COUGHS FORCEFULLY. LUNG SOUNDS ARE WITH L BASE FINE CRACKLES. PT C/O MID BACK PAIN.
[2017-10-15 00:12] VITALS: PULSE 95; RESP 16; O2SAT 98
[2017-10-15] MEDS: oxyCODONE 5 MG Tablet PO ×3 (00:14→13:10)
--- NOTE | 2017-10-15 00:26 | NURSING ---
PT ASSISTED TO CHAIR AFTER TAKING PAIN PILL AND INSTRUCTED TO NOTIFY STAFF IF HE NEEDS TO GET UP TO URINATE OR FOR ANY OTHER NEEDS. PT INFORMED A PA WILL BE APPLIED TO HIM FOR THE REST OF THE NIGHT A REMINDER TO CONTACT STAFF BEFORE GETTING UP. PT STATES PAIN SUBSIDES ALMOST IMMEDIATELY AFTER GETTING INTO RECLINER AND OUT OF THE BED.
--- NOTE | 2017-10-15 00:56 | NURSING ---
PT REMAINS IN RECLINES AND STATES HIS BREATHING FEELS BETTER NOW AFTER HAVING A BIG COUGH. RESP ARE EVEN AND EASY AND COUGHING HAS DECREASED. PT HAS TAKEN OFF HIS PA. PT INFORMED WHY HE IS TO WEAR PA TO ENSURE HIS SAFETY. PT REFUSES TO WEAR IT AND STATES HE WILL CALL STAFF BEFORE GETTING UP TO VOID. PT ADVISES HE WILL NOT WAIT VERY LONG SOMETIMES HE NEEDS TO URINATE IN A HURRY. PT'S CALL LIGHT IS IN REACH.
[2017-10-15] MEDS: Enoxaparin 40 MG/0.4 ML Syringe SC (05:10)
[2017-10-15 07:32] VITALS: BP 141/91; PULSE 96; RESP 16; TEMP 36.4; O2SAT 96
[2017-10-15] MEDS: Calcium Carb/Vitamin D 1 TABLET Tablet PO (09:23)
[2017-10-15] MEDS: Senna/Docusate Sodium 1 Tablet 2 TABLET PO ×2 (09:24→21:29)
[2017-10-15] MEDS: NYSTATIN 500,000 UNIT/5 ML UDC 500000 UNIT PO ×4 (09:24→21:29)
[2017-10-15] MEDS: glipiZIDE 10 MG Tablet PO (09:24)
[2017-10-15] MEDS: Losartan Potassium 50 MG Tablet PO (09:24)
[2017-10-15] MEDS: metFORMIN HCl 1,000 MG Tablet 1000 MG PO ×2 (09:24→16:57)
[2017-10-15] MEDS: Pioglitazone Hydrochloride 45 MG Tablet PO (09:34)
--- NOTE | 2017-10-15 09:35 | NURSING ---
This RN noticed after giving thin liquids pt is clearing throat with excessive coughing, left message for SKIRT MAKER to request speech consult
[2017-10-15] MEDS: Ibuprofen 200 MG Tablet PO (10:48)
[2017-10-15 19:19] VITALS: BP 138/77; PULSE 96; RESP 16; TEMP 36.4; O2SAT 95
[2017-10-16] MEDS: oxyCODONE 5 MG Tablet PO ×5 (01:39→22:07)
[2017-10-16] MEDS: Enoxaparin 40 MG/0.4 ML Syringe SC (05:34)
[2017-10-16 07:40] VITALS: BP 134/82; PULSE 79; RESP 20; TEMP 36.6; O2SAT 96
[2017-10-16] MEDS: Calcium Carb/Vitamin D 1 TABLET Tablet PO (07:57)
[2017-10-16] MEDS: metFORMIN HCl 1,000 MG Tablet 1000 MG PO ×2 (07:57→17:50)
[2017-10-16] MEDS: Pioglitazone Hydrochloride 45 MG Tablet PO (07:57)
[2017-10-16] MEDS: Losartan Potassium 50 MG Tablet PO (07:57)
[2017-10-16] MEDS: glipiZIDE 10 MG Tablet PO (07:57)
[2017-10-16] MEDS: Senna/Docusate Sodium 1 Tablet 2 TABLET PO ×2 (07:57→21:04)
[2017-10-16] MEDS: NYSTATIN 500,000 UNIT/5 ML UDC 500000 UNIT PO ×4 (07:58→21:04)
[2017-10-16] MEDS: Ibuprofen 200 MG Tablet PO ×2 (08:16→14:00)
--- NOTE | 2017-10-16 09:56 | PCM.PN.NEU ---
Subjective: Patient seen and examined. No acute events overnight per nursing. Patient is tolerating therapy, pain is well controlled on current medications. No issues with GI/. - Physical Exam General: Alert, Oriented x3, Cooperative HEENT: Atraumatic, PERRLA, EOMI, Normocephalic Neck: Supple, No JVD, Negative Carotid Bruits Lungs: Clear to auscultation, Normal air movement Cardiovascular: Regular rate, No murmurs Abdomen: Bowel Sounds Present, Soft, Non Tender Extremities: No edema, Capillary Refill Less than 3 Seconds Skin: No rashes, No breakdown Musculoskeletal: No Tenderness to Palpation of Joints or Extremities Neurological: Cranial nerves II-XII grossly intact Psych/Mental Status: Normal Affect, Appropriate, Alert and oriented to time, place, person, mood and affect Vital Signs Temp Pulse Resp BP Pulse Ox 97.9 F 79 20 H 134/82 H 96 10/16/17 07:40 10/16/17 07:40 10/16/17 07:40 10/16/17 07:40 10/16/17 07:40 Oxygen Delivery Method Room Air Weight: 118.3 kg Body Mass Index (BMI) 37.4 Finger Stick Blood Glucose 297 Intake and Output for Last 24 Hours 10/14/17 10/15/17 10/16/17 23:59 23:59 23:59 Intake Total 800 / 800 720 / 720 260 / 260 Output Total 700 / 700 Balance 100 / 100 720 / 720 260 / 260 Active Medications Bisacodyl (Dulcolax) 10 mg RECTAL .PRN X 1 PRN PRN Reason: Constipation Calcium/Vitamin D (Os-Saeed 500mg + D) 1 tablet PO DAILY@0800 [facility] Last Admin: 10/16/17 07:57 Dose: 1 tablet Cholecalciferol (Vitamin D) 2,000 unit PO DAILY [facility] Last Admin: 10/16/17 07:57 Dose: 2,000 unit Enoxaparin Sodium (Lovenox) 40 mg SC DAILY@0600 [facility] Last Admin: 10/16/17 05:34 Dose: 40 mg Fentanyl (Duragesic Patch) 12 mcg TRANSDERM. Q3D [facility] Last Admin: 10/14/17 16:02 Dose: 12 mcg Glipizide (Glucotrol) 10 mg PO DAILYCM [facility] Last Admin: 10/16/17 07:57 Dose: 10 mg Ibuprofen (Motrin) 200 mg PO Q4H PRN PRN PRN Reason: MILD PAIN (1-3/10) Last Admin: 10/16/17 08:16 Dose: 200 mg Losartan Potassium (Cozaar) 50 mg PO DAILY [facility] Last Admin: 10/16/17 07:57 Dose: 50 mg Magnesium Hydroxide (Milk Of Magnesia) 30 ml PO .PRN X 1 PRN PRN Reason: Constipation Last Admin: 10/13/17 11:27 Dose: 30 ml Metformin [facility] (Glucophage) [facility] Last Admin: 10/16/17 07:57 Dose: 1,000 mg Nystatin (Nystatin) 500,000 unit PO 4X/DAY [facility] Stop: 10/19/17 15:31 Last Admin: 10/16/17 07:58 Dose: 500,000 unit Oxycodone HCl (Oxyir) 5 mg PO Q4H PRN PRN PRN Reason: SEVERE PAIN (6-10/10) Last Admin: 10/16/17 06:49 Dose: 5 mg Pioglitazone HCl (Actos) 45 mg PO DAILY [facility] Last Admin: 10/16/17 07:57 Dose: 45 mg Senna/Docusate Sodium (Senokot-S, [place]-Colace) 2 tablet PO BID [facility] Last Admin: 10/16/17 07:57 Dose: 2 tablet Medical Necessity - Tobacco Use Smoking Status: Former smoker Tobacco Use: Cigarettes Assessment/Plan Debility status post fall with thoracic compression fracture confounded by diabetic neuropathy and chronic severe benign positional vertigo. Goal of rehab is mosque of prior level of functional independence Plan: Physical therapy for gait and balance and vertigo Occupational Therapy for ADLs Bowel protocol, he has been constipated for 6 days. As needed analgesics: continue his fentanyl patch Cough: Presumably due to lisinopril. Will change this to losartan DVT prophylaxis: Lovenox Diabetes: Monitor sugars and treat as necessary
--- NOTE | 2017-10-16 09:59 | PN.NEURO_ITS ---
Subjective: Patient seen and examined. No acute events overnight per nursing. Patient is tolerating therapy, pain is well controlled on current medications. No issues with GI/. - Physical Exam General: Alert, Oriented x3, Cooperative HEENT: Atraumatic, PERRLA, EOMI, Normocephalic Neck: Supple, No JVD, Negative Carotid Bruits Lungs: Clear to auscultation, Normal air movement Cardiovascular: Regular rate, No murmurs Abdomen: Bowel Sounds Present, Soft, Non Tender Extremities: No edema, Capillary Refill Less than 3 Seconds Skin: No rashes, No breakdown Musculoskeletal: No Tenderness to Palpation of Joints or Extremities Neurological: Cranial nerves II-XII grossly intact Psych/Mental Status: Normal Affect, Appropriate, Alert and oriented to time, place, person, mood and affect Vital Signs Temp Pulse Resp BP Pulse Ox 97.9 F 79 20 H 134/82 H 96 10/16/17 07:40 10/16/17 07:40 10/16/17 07:40 10/16/17 07:40 10/16/17 07:40 Oxygen Delivery Method Room Air Weight: 118.3 kg Body Mass Index (BMI) 37.4 Finger Stick Blood Glucose 297 Intake and Output for Last 24 Hours 10/14/17 10/15/17 10/16/17 23:59 23:59 23:59 Intake Total 800 / 800 720 / 720 260 / 260 Output Total 700 / 700 Balance 100 / 100 720 / 720 260 / 260 Active Medications Bisacodyl (Dulcolax) 10 mg RECTAL .PRN X 1 PRN PRN Reason: Constipation Calcium/Vitamin D (Os-Saeed 500mg + D) 1 tablet PO DAILY@0800 [facility] Last Admin: 10/16/17 07:57 Dose: 1 tablet Cholecalciferol (Vitamin D) 2,000 unit PO DAILY [facility] Last Admin: 10/16/17 07:57 Dose: 2,000 unit Enoxaparin Sodium (Lovenox) 40 mg SC DAILY@0600 [facility] Last Admin: 10/16/17 05:34 Dose: 40 mg Fentanyl (Duragesic Patch) 12 mcg TRANSDERM. Q3D [facility] Last Admin: 10/14/17 16:02 Dose: 12 mcg Glipizide (Glucotrol) 10 mg PO DAILYCM [facility] Last Admin: 10/16/17 07:57 Dose: 10 mg Ibuprofen (Motrin) 200 mg PO Q4H PRN PRN PRN Reason: MILD PAIN (1-3/10) Last Admin: 10/16/17 08:16 Dose: 200 mg Losartan Potassium (Cozaar) 50 mg PO DAILY [facility] Last Admin: 10/16/17 07:57 Dose: 50 mg Magnesium Hydroxide (Milk Of Magnesia) 30 ml PO .PRN X 1 PRN PRN Reason: Constipation Last Admin: 10/13/17 11:27 Dose: 30 ml Metformin [facility] (Glucophage) [facility] Last Admin: 10/16/17 07:57 Dose: 1,000 mg Nystatin (Nystatin) 500,000 unit PO 4X/DAY [facility] Stop: 10/19/17 15:31 Last Admin: 10/16/17 07:58 Dose: 500,000 unit Oxycodone HCl (Oxyir) 5 mg PO Q4H PRN PRN PRN Reason: SEVERE PAIN (6-10/10) Last Admin: 10/16/17 06:49 Dose: 5 mg Pioglitazone HCl (Actos) 45 mg PO DAILY [facility] Last Admin: 10/16/17 07:57 Dose: 45 mg Senna/Docusate Sodium (Senokot-S, [place]-Colace) 2 tablet PO BID [facility] Last Admin: 10/16/17 07:57 Dose: 2 tablet Medical Necessity - Tobacco Use Smoking Status: Former smoker Tobacco Use: Cigarettes Assessment/Plan Debility status post fall with thoracic compression fracture confounded by diabetic neuropathy and chronic severe benign positional vertigo. Goal of rehab is mu-ism of prior level of functional independence Plan: Physical therapy for gait and balance and vertigo Occupational Therapy for ADLs Bowel protocol, he has been constipated for 6 days. As needed analgesics: continue his fentanyl patch Cough: Presumably due to lisinopril. Will change this to losartan DVT prophylaxis: Lovenox Diabetes: Monitor sugars and treat as necessary
[2017-10-16 19:37] VITALS: BP 131/70; PULSE 96; RESP 16; TEMP 36.6
[2017-10-16 22:00] VITALS: RESP 16
[2017-10-17] MEDS: oxyCODONE 5 MG Tablet PO ×5 (02:16→21:21)
--- NOTE | 2017-10-17 04:22 | NURSING ---
Pt requested pain meds 20 minutes before oxyir would be due and PATROL SERGEANT came to this nurse to inform me of the need. Nurse went to room to explain why he would have to wait and Pt expressed confusion on usage of PRN pain meds. Nurse explained that Motrin 200mg Q4H/PRN could by given or wait 20 minutes for oxyir. Pt stated he thought he could have Motrin 1st and then after 20 minutes lapsed, the oxyir would be available too. Pt opted to wait for the oxyir. Hot tea provided for pt cough. Pt expressed thanks and stated he misunderstood how these PRN meds worked.
[2017-10-17] MEDS: Enoxaparin 40 MG/0.4 ML Syringe SC (05:29)
[2017-10-17] MEDS: glipiZIDE 10 MG Tablet PO (07:39)
[2017-10-17] MEDS: Calcium Carb/Vitamin D 1 TABLET Tablet PO (07:39)
[2017-10-17] MEDS: metFORMIN HCl 1,000 MG Tablet 1000 MG PO ×2 (07:39→17:10)
[2017-10-17] MEDS: Ibuprofen 200 MG Tablet PO ×2 (08:32→14:37)
[2017-10-17 10:00] VITALS: BP 127/68; PULSE 77; RESP 18; TEMP 36.5; O2SAT 94
--- NOTE | 2017-10-17 10:47 | PCM.PN.NEU ---
Subjective: Staffed in team meeting. No family was at bedside. Questions answered. With Physical therapy, he is stand by assist for bed mobility, getting in and out of the bed, he is stand by assist for getting in and out of a chair. He is able to walk about 150 feet with a walker at stand by assist. He does require contact guard occasionally when making turns 2/2 his chronic dizziness. He is about to go up and down 10 stairs at contact guard to stand by assist. His TUG scores have improved to less than 20 seconds. With Occupational therapy, he is supervision for all his personal care. With Speech therapy, he was seen for coughing with intake of thin liquids. He was instructed on chin tuck and exercises to help with improving his swallowing. With nursing no new issues. The plan is for discharge home on Saturday the , with assistive device for ambulation and Vestibular therapy for his dizziness. - Physical Exam General: Alert, Oriented x3, Cooperative HEENT: Atraumatic, PERRLA, EOMI, Normocephalic Neck: Supple, No JVD, Negative Carotid Bruits Lungs: Clear to auscultation, Normal air movement Cardiovascular: Regular rate, No murmurs Abdomen: Bowel Sounds Present, Soft, Non Tender Extremities: No edema, Capillary Refill Less than 3 Seconds Skin: No rashes, No breakdown Musculoskeletal: No Tenderness to Palpation of Joints or Extremities Neurological: Cranial nerves II-XII grossly intact Psych/Mental Status: Normal Affect, Appropriate, Alert and oriented to time, place, person, mood and affect Vital Signs Temp Pulse Resp BP Pulse Ox 97.8 F 96 16 131/70 H 96 10/16/17 19:37 10/16/17 19:37 10/16/17 22:00 10/16/17 19:37 10/16/17 07:40 Oxygen Flow Rate (L/min) 95 Oxygen Delivery Method Room Air Weight: 118.3 kg Body Mass Index (BMI) 37.4 Finger Stick Blood Glucose 297 Intake and Output for Last 24 Hours 10/15/17 10/16/17 10/17/17 23:59 23:59 23:59 Intake Total 720 / 720 700 / 700 Balance 720 / 720 700 / 700 Active Medications Bisacodyl (Dulcolax) 10 mg RECTAL .PRN X 1 PRN PRN Reason: Constipation Calcium/Vitamin D (Os-Saeed 500mg + D) 1 tablet PO DAILY@0800 [facility] Last Admin: 10/17/17 07:39 Dose: 1 tablet Cholecalciferol (Vitamin D) 2,000 unit PO DAILY [facility] Last Admin: 10/17/17 07:39 Dose: 2,000 unit Enoxaparin Sodium (Lovenox) 40 mg SC DAILY@0600 [facility] Last Admin: 10/17/17 05:29 Dose: 40 mg Fentanyl (Duragesic Patch) 12 mcg TRANSDERM. Q3D [facility] Last Admin: 10/14/17 16:02 Dose: 12 mcg [facility] ([facility]) [facility] Last Admin: 10/17/17 07:39 Dose: 10 mg Ibuprofen (Motrin) 200 mg PO Q4H PRN PRN PRN Reason: MILD PAIN (1-3/10) Last Admin: 10/17/17 08:32 Dose: 200 mg Losartan Potassium (Cozaar) 50 mg PO DAILY [facility] Last Admin: 10/16/17 07:57 Dose: 50 mg Magnesium Hydroxide (Milk Of Magnesia) 30 ml PO .PRN X 1 PRN PRN Reason: Constipation Last Admin: 10/13/17 11:27 Dose: 30 ml Metformin [facility] (Gluc[facility]) [facility] Last Admin: 10/17/17 07:39 Dose: 1,000 mg Nystatin (Nystatin) 500,000 unit PO 4X/DAY [facility] Stop: 10/19/17 15:31 Last Admin: 10/16/17 21:04 Dose: 500,000 unit Oxycodone HCl (Oxyir) 5 mg PO Q4H PRN PRN PRN Reason: SEVERE PAIN (6-10/10) Last Admin: 10/17/17 06:27 Dose: 5 mg Pioglitazone HCl (Actos) 45 mg PO DAILY [facility] Last Admin: 10/16/17 07:57 Dose: 45 mg Senna/Docusate Sodium (Senokot-S, [place]-Colace) 2 tablet PO BID [facility] Last Admin: 10/17/17 07:40 Dose: Not Given Medical Necessity - Tobacco Use Smoking Status: Former smoker Tobacco Use: Cigarettes Assessment/Plan Debility status post fall with thoracic compression fracture confounded by diabetic neuropathy and chronic severe benign positional vertigo. Goal of rehab is cheondoism of prior level of functional independence Plan: Physical therapy for gait and balance and vertigo Occupational Therapy for ADLs Bowel protocol, he has been constipated for 6 days. As needed analgesics: continue his fentanyl patch Cough: Presumably due to lisinopril. Will change this to losartan DVT prophylaxis: Lovenox Diabetes: Monitor sugars and treat as necessary Discharge home on Saturday the with a walker, and Vestibular therapy MOD I today until discharge on Saturday, 10/19
[2017-10-17] MEDS: Losartan Potassium 50 MG Tablet PO (10:59)
[2017-10-17] MEDS: Pioglitazone Hydrochloride 45 MG Tablet PO (10:59)
[2017-10-17] MEDS: NYSTATIN 500,000 UNIT/5 ML UDC 500000 UNIT PO ×4 (11:00→21:21)
--- NOTE | 2017-10-17 11:02 | PN.NEURO_ITS ---
Subjective: Staffed in team meeting. No family was at bedside. Questions answered. With Physical therapy, he is stand by assist for bed mobility, getting in and out of the bed, he is stand by assist for getting in and out of a chair. He is able to walk about 150 feet with a walker at stand by assist. He does require contact guard occasionally when making turns 2/2 his chronic dizziness. He is about to go up and down 10 stairs at contact guard to stand by assist. His TUG scores have improved to less than 20 seconds. With Occupational therapy, he is supervision for all his personal care. With Speech therapy, he was seen for coughing with intake of thin liquids. He was instructed on chin tuck and exercises to help with improving his swallowing. With nursing no new issues. The plan is for discharge home on Saturday the , with assistive device for ambulation and Vestibular therapy for his dizziness. - Physical Exam General: Alert, Oriented x3, Cooperative HEENT: Atraumatic, PERRLA, EOMI, Normocephalic Neck: Supple, No JVD, Negative Carotid Bruits Lungs: Clear to auscultation, Normal air movement Cardiovascular: Regular rate, No murmurs Abdomen: Bowel Sounds Present, Soft, Non Tender Extremities: No edema, Capillary Refill Less than 3 Seconds Skin: No rashes, No breakdown Musculoskeletal: No Tenderness to Palpation of Joints or Extremities Neurological: Cranial nerves II-XII grossly intact Psych/Mental Status: Normal Affect, Appropriate, Alert and oriented to time, place, person, mood and affect Vital Signs Temp Pulse Resp BP Pulse Ox 97.8 F 96 16 131/70 H 96 10/16/17 19:37 10/16/17 19:37 10/16/17 22:00 10/16/17 19:37 10/16/17 07:40 Oxygen Flow Rate (L/min) 95 Oxygen Delivery Method Room Air Weight: 118.3 kg Body Mass Index (BMI) 37.4 Finger Stick Blood Glucose 297 Intake and Output for Last 24 Hours 10/15/17 10/16/17 10/17/17 23:59 23:59 23:59 Intake Total 720 / 720 700 / 700 Balance 720 / 720 700 / 700 Active Medications Bisacodyl (Dulcolax) 10 mg RECTAL .PRN X 1 PRN PRN Reason: Constipation Calcium/Vitamin D (Os-Saeed 500mg + D) 1 tablet PO DAILY@0800 [facility] Last Admin: 10/17/17 07:39 Dose: 1 tablet Cholecalciferol (Vitamin D) 2,000 unit PO DAILY [facility] Last Admin: 10/17/17 07:39 Dose: 2,000 unit Enoxaparin Sodium (Lovenox) 40 mg SC DAILY@0600 [facility] Last Admin: 10/17/17 05:29 Dose: 40 mg Fentanyl (Duragesic Patch) 12 mcg TRANSDERM. Q3D [facility] Last Admin: 10/14/17 16:02 Dose: 12 mcg [facility]ipiz[facility] (Gl[facility]otrol) [facility] Last Admin: 10/17/17 07:39 Dose: 10 mg Ibuprofen (Motrin) 200 mg PO Q4H PRN PRN PRN Reason: MILD PAIN (1-3/10) Last Admin: 10/17/17 08:32 Dose: 200 mg Losartan Potassium (Cozaar) 50 mg PO DAILY [facility] Last Admin: 10/16/17 07:57 Dose: 50 mg Magnesium Hydroxide (Milk Of Magnesia) 30 ml PO .PRN X 1 PRN PRN Reason: Constipation Last Admin: 10/13/17 11:27 Dose: 30 ml Metformin HCl (Glucophage) [facility] Last Admin: 10/17/17 07:39 Dose: 1,000 mg Nystatin (Nystatin) 500,000 unit PO 4X/DAY [facility] Stop: 10/19/17 15:31 Last Admin: 10/16/17 21:04 Dose: 500,000 unit Oxycodone HCl (Oxyir) 5 mg PO Q4H PRN PRN PRN Reason: SEVERE PAIN (6-10/10) Last Admin: 10/17/17 06:27 Dose: 5 mg Pioglitazone HCl (Actos) 45 mg PO DAILY [facility] Last Admin: 10/16/17 07:57 Dose: 45 mg Senna/Docusate Sodium (Senokot-S, [place]-Colace) 2 tablet PO BID [facility] Last Admin: 10/17/17 07:40 Dose: Not Given Medical Necessity - Tobacco Use Smoking Status: Former smoker Tobacco Use: Cigarettes Assessment/Plan Debility status post fall with thoracic compression fracture confounded by diabetic neuropathy and chronic severe benign positional vertigo. Goal of rehab is jewish of prior level of functional independence Plan: Physical therapy for gait and balance and vertigo Occupational Therapy for ADLs Bowel protocol, he has been constipated for 6 days. As needed analgesics: continue his fentanyl patch Cough: Presumably due to lisinopril. Will change this to losartan DVT prophylaxis: Lovenox Diabetes: Monitor sugars and treat as necessary Discharge home on Saturday the with a walker, and Vestibular therapy MOD I today until discharge on Saturday, 10/19
--- NOTE | 2017-10-17 14:47 | CASEMGMT ---
Team meeting held. Patient present, no support person present at this time. Patient and team collaborating, discharge date set for 10/19/17. Patient plans to discharge home alone. Physical therapy recommending for patient to have vestibular therapy at time of discharge. Patient unsure about having vestibular therapy as patient is reporting to have done this in the past and has no results, team encouraging patient to try vestibular therapy again. Patient open to being provided with order for vestibular therapy and then patient is able to set up the appointment if patient changes mind. Patient reporting to need a walker at time of discharge. Patient does not have a preference of [employer], [address] to be utilized. Patient uncle to provide transportation home for patient at time of discharge. Support given. Telephone call to It[facility] Oleary. This social work msw making referral for walker. Order faxed. Walker to be delivered to patient room prior to patient discharge. Order for vestibular therapy placed with patient discharge information, nursing to give to patient at time of discharge. Proposed discharge date: 10/19/17 PLAN: Discharge home alone. Ermelinda PARKER, [employer]OP CLIPPER
[2017-10-17 19:49] VITALS: BP 127/70; PULSE 87; RESP 16; TEMP 36.6; O2SAT 97
[2017-10-17 22:00] VITALS: RESP 18
[2017-10-18] MEDS: Enoxaparin 40 MG/0.4 ML Syringe SC (06:41)
[2017-10-18] MEDS: Pioglitazone Hydrochloride 45 MG Tablet PO (07:43)
[2017-10-18] MEDS: Losartan Potassium 50 MG Tablet PO (07:43)
[2017-10-18] MEDS: NYSTATIN 500,000 UNIT/5 ML UDC 500000 UNIT PO ×4 (07:44→19:36)
[2017-10-18] MEDS: Senna/Docusate Sodium 1 Tablet 2 TABLET PO (07:44)
[2017-10-18] MEDS: oxyCODONE 5 MG Tablet PO ×3 (07:44→19:36)
[2017-10-18] MEDS: glipiZIDE 10 MG Tablet PO (07:44)
[2017-10-18] MEDS: metFORMIN HCl 1,000 MG Tablet 1000 MG PO ×2 (07:44→17:21)
[2017-10-18] MEDS: Calcium Carb/Vitamin D 1 TABLET Tablet PO (07:45)
[2017-10-18 08:16] VITALS: BP 113/67; PULSE 101; RESP 17; TEMP 36.7; O2SAT 96
--- NOTE | 2017-10-18 13:45 | DCINST_ITS ---
You will use the following diet at home:: Calorie/Carbohydrate Controlled ( specify 1200, 1400, etc) Your food should be the consistency of: Regular Your liquids should be the consistency of: Regular/Thin Discharge Activity: May not drive while taking narcotic pain medications., May Shower, Use Walker Weight Bearing Status: Weight bearing as tolerated Call your doctor if you observe: Fever of 101 or Higher, Coldness, Increased Pain, Numbness or Tingling, Change in Color, Inability to urinate, Inability to have a bowel movement, Using more than one pad per hour, Shortness of breath, Dizziness, Fainting spells, Swelling in the ankles, Chest pain, Prolonged hiccoughing, Increased palpitations (irregular heartbeat), Calf discomfort, Uncontrolled pain Allergies/Adverse Reactions: Allergies Ifgjjqi-Uot-Eto Reductase Inhibitor Allergy (Verified 10/09/17 03:15) Swelling Medications to take at Discharge Metformin HCl [Glucophage] 1,000 mg PO BIDCM 07/21/13 Glipizide [Glucotrol] 10 mg PO DAILY 10/09/17 Pioglitazone HCl 45 mg PO DAILY 10/09/17 Acetaminophen [Tylenol] 1,000 mg PO Q8 PRN 10/11/17 Calcium Carb/Vitamin D [Os-Saeed 500MG + D] 1 tablet PO DAILY@0800 10/11/17 Cholecalciferol (VIT D3) [Vitamin D3] 2,000 unit PO DAILY 10/11/17 fentaNYL patch [Duragesic patch] 25 mcg TRANSDERM. Q3D 10/11/17 Cholecalciferol (VIT D3) [Vitamin D3] 2,000 unit PO DAILY #30 tab 10/18/17 Losartan Potassium [Cozaar] 50 mg PO DAILY #30 tab 10/18/17 Oxycodone [Oxyir] 5 mg PO Q4H PRN PRN 7 Days #42 tab 10/18/17 fentaNYL patch [Duragesic Patch] 12 mcg TRANSDERM. Q3D #3 patch 10/18/17 The following prescriptions were given: Oxycodone [Oxyir] 5 mg PO Q4H PRN PRN 7 Days #42 tab PRN Reason: Severe Pain (6-10/) Cholecalciferol (VIT D3) [Vitamin D3] 2,000 unit PO DAILY #30 tab fentaNYL patch [Duragesic Patch] 12 mcg TRANSDERM. Q3D #3 patch Losartan Potassium [Cozaar] 50 mg PO DAILY #30 tab Primary Care Physician: Maria Isabel Abreu MD [Primary Care Provider] - Please Follow Up With: Maria Isabel Abreu MD Please Follow Up With: Vestibular therapy - [facility] Proposed Discharge Date: 10/19/17
--- NOTE | 2017-10-18 13:45 | PCM.RU.DC ---
Rehab Discharge Summary DATE OF ADMISSION: 10/11/17 DATE OF DISCHARGE: 10/19/17 - Rehab Diagnosis Debility Discharge Diet: 1999 Calorie Control Diet, Carb Control Diet Discharge Activity: May not drive while taking narcotic pain medications., May Shower, Use Walker Weight Bearing Status: Weight bearing as tolerated Call your doctor if you observe: Fever of 101 or Higher, Coldness, Increased Pain, Numbness or Tingling, Change in Color, Inability to urinate, Inability to have a bowel movement, Using more than one pad per hour, Shortness of breath, Dizziness, Fainting spells, Swelling in the ankles, Chest pain, Prolonged hiccoughing, Increased palpitations (irregular heartbeat), Calf discomfort, Uncontrolled pain Home Medications: Medications to take at Discharge Metformin HCl [Glucophage] 1,000 mg PO BIDCM 07/21/13 Glipizide [Glucotrol] 10 mg PO DAILY 10/09/17 Pioglitazone HCl 45 mg PO DAILY 10/09/17 Acetaminophen [Tylenol] 1,000 mg PO Q8 PRN 10/11/17 Calcium Carb/Vitamin D [Os-Saeed 500MG + D] 1 tablet PO DAILY@0800 10/11/17 Cholecalciferol (VIT D3) [Vitamin D3] 2,000 unit PO DAILY 10/11/17 fentaNYL patch [Duragesic patch] 25 mcg TRANSDERM. Q3D 10/11/17 Cholecalciferol (VIT D3) [Vitamin D3] 2,000 unit PO DAILY #30 tab 10/18/17 Losartan Potassium [Cozaar] 50 mg PO DAILY #30 tab 10/18/17 Oxycodone [Oxyir] 5 mg PO Q4H PRN PRN 7 Days #42 tab 10/18/17 fentaNYL patch [Duragesic Patch] 12 mcg TRANSDERM. Q3D #3 patch 10/18/17 Following Prescrptions Were Given to Patient: Oxycodone [Oxyir] 5 mg PO Q4H PRN PRN 7 Days #42 tab PRN Reason: Severe Pain (6-10/10) Cholecalciferol (VIT D3) [Vitamin D3] 2,000 unit PO DAILY #30 tab fentaNYL patch [Duragesic Patch] 12 mcg TRANSDERM. Q3D #3 patch Losartan Potassium [Cozaar] 50 mg PO DAILY #30 tab Primary Care Physician: Maria Isabel Abreu MD [Primary Care Provider] - Please Follow Up With: Maria Isabel Abreu MD Please Follow Up With: Vestibular therapy - [facility] Disposition: Home Minutes spent on discharge:: 40 Patient Condition:: Good Rehab Course The patient is a 62 year old male with a long history of benign paroxysmal positional vertigo which has become so severe and compounded by severe diabetic neuropathy that he has become increasingly debilitated and homebound at home to the extent that his balance has become very tenuous. He experiences spell at home and fell in his bathroom leading to a thoracic fracture. He had severe pain, and the hospital his fracture was treated with kyphoplasty, he has improved significantly and now presents to the rehab unit for further rehabilitation in order to return home hopefully better than his previous functional status. He lives alone in his own apartment. His vertigo was diagnosed years ago and has been treated relatively non-aggressively. With Physical therapy, he is stand by assist for bed mobility, getting in and out of the bed, he is stand by assist for getting in and out of a chair. He is able to walk about 150 feet with a walker at stand by assist. He does require contact guard occasionally when making turns 2/2 his chronic dizziness. He is about to go up and down 10 stairs at contact guard to stand by assist. His TUG scores have improved to less than 20 seconds. With Occupational therapy, he is supervision for all his personal care. With Speech therapy, he was seen for coughing with intake of thin liquids. He was instructed on chin tuck and exercises to help with improving his swallowing. The plan is for discharge home on Saturday, with assistive device for ambulation and Vestibular therapy for his dizziness. Meaningful Use Info Meaningful Use Diagnoses (Choose all that apply): None applicable
[2017-10-18] MEDS: Ibuprofen 200 MG Tablet PO (17:22)
[2017-10-18 20:15] VITALS: BP 131/64; PULSE 79; RESP 18; TEMP 36.6; O2SAT 97
[2017-10-19] MEDS: Enoxaparin 40 MG/0.4 ML Syringe SC (06:05)
[2017-10-19 07:18] VITALS: BP 131/76; PULSE 76; RESP 16; TEMP 36.8; O2SAT 96
[2017-10-19] MEDS: Calcium Carb/Vitamin D 1 TABLET Tablet PO (07:21)
[2017-10-19] MEDS: Losartan Potassium 50 MG Tablet PO (07:21)
[2017-10-19] MEDS: glipiZIDE 10 MG Tablet PO (07:21)
[2017-10-19] MEDS: Pioglitazone Hydrochloride 45 MG Tablet PO (07:21)
[2017-10-19] MEDS: metFORMIN HCl 1,000 MG Tablet 1000 MG PO (07:21)
[2017-10-19] MEDS: oxyCODONE 5 MG Tablet PO (07:23)
--- NOTE | 2017-10-19 09:05 | NURSING ---
patient verbalized understanding of discharge instructions, denied any further questions.
--- NOTE | 2017-10-19 10:23 | NURSING ---
patient discharged home at this time. gait steady and patient is mod i with walker
== END 2017-10-19 10:25 | disposition home or self-care (01) | DRG 561 ==
PROVIDERS: Admitting Provider Psychiatry & Neurology Neurology; Family Provider Family Medicine; PCP Family Medicine; Visit Provider Psychiatry & Neurology Neurology
DX: S22.9XXD Fracture of bony thorax, part unspecified, subsequent encounter for fracture with routine healing (principal); W19.XXXD Unspecified fall, subsequent encounter; H81.10 Benign paroxysmal vertigo, unspecified ear; I25.10 Atherosclerotic heart disease of native coronary artery without angina pectoris; E11.40 Type 2 diabetes mellitus with diabetic neuropathy, unspecified; Z87.891 Personal history of nicotine dependence; Z95.1 Presence of aortocoronary bypass graft
CPT/HCPCS: 82962; 92526; 97110; 97116; 97162; 97166; 97530; 97535; 97802

== ENCOUNTER 2017-11-14 19:33 | Emergency (ER) | payer MEDICARE, SELFPAY ==
[2017-11-14 19:34] VITALS: BP 131/70; PULSE 110; RESP 24; TEMP 37.1; O2SAT 93; BMI 35.9
--- NOTE | 2017-11-14 20:40 | EKG12_ITS ---
Test Reason : DYSRHYTHMIA Blood Pressure : / mmHG Vent. Rate : 105 BPM Atrial Rate : 105 BPM P-R Int : 184 ms QRS Dur : 076 ms QT Int : 320 ms P-R-T Axes : 032 099 021 degrees QTc Int : 422 ms Sinus tachycardia Septal infarct (cited on or before 09-OCT-2017) Abnormal ECG Confirmed by ISAAK ORTEGA ([id number]), graphic editor BUCKY PRO ([id number]) on 11/18/2017 10:21:37 AM Referred By: TRAVIS Confirmed By:ISAAK ORTEGA
--- NOTE | 2017-11-14 20:42 | ED.VISSUMM ---
- ER Visit Summary Date of Service: 11/14/17 Chief Complaint: Fall History of Present Illness: The patient is a 62 M patient with a fall today an hour prior to arrival. He states history of postconcussive syndrome getting dizzy sensations. Today had an episode causing the fall down. No injuries today. However 3 weeks ago had a similar episode causing a fall with a T12 fracture. There is no surgical intervention. He went through rehab. He has been home for 2 weeks. States after fall he cannot get up therefore called EMS. Denies any pain symptoms. He is not taking pain medicines for his back for 2 days. Denies any increasing pain in his back. Decreased oral intake. Denies vomiting or diarrhea. Denies any urinary symptoms. Denies any head injuries. No complaints currently. Physical Examination: General: Alert and oriented ?3, no acute distress HEENT: Normocephalic, atraumatic. Mild dry mucosa membranes Neck: supple, nontender. Cardiovascular: Regular tachycardic rate and rhythm, no murmurs Respiratory: Normal breath sounds, symmetric, no distress Abdomen: Soft, nontender, nondistended Extremities: Nontender, no edema, pulses intact ?4 Neuro: no focal neurological deficits. Cranial nerves II through XII intact Test Results: Hemoglobin 15, creatinine 0.88. UA negative. EKG sinus rate of 105, no ST changes. Isolated T-wave inversion in leads III. Emergency Department Course and Treatment: Patient with history of vertigo symptoms due to concussion in the past. There is no head injury today. He denies any pain or injury from the fall. States he just could not get up. I did check labs and EKG stable. Urine was negative. Given IV fluids. Patient was ambulated in the department with no return of symptoms. He will be discharged with outpatient follow-up. Return if any worsening symptoms. All questions were answered. Treatment Plan: [] Disposition: Discharge Impression: 1. Fall with no apparent injury 2. History of vertigo This note was generated with [employer] dictation software. It may contain incorrect words, spelling, and punctuation that were not noted in review of the chart prior to signing ED Disposition - Plan for ED Patient: Disposition: Home or Assisted Living Chief Complaint: Fall Diagnosis: Fall, History of vertigo Instructions: ED Fall Dizziness Weakn Balance Referrals: Maria Isabel Abreu MD [Primary Care Provider] - 3-5 Days
[2017-11-14] MEDS: 0.9% Normal Saline 1,000 ML 1000 ML IV (21:01)
[2017-11-14 21:09] LABS: Bacteria 0 SEEN /hpf (None Seen); Mucous, Urine 0 SEEN /hpf (<or=2+); Red Blood Cells-Urine 0 SEEN /hpf (0-5); Squamous Epithelial Cells - UA 0 SEEN /hpf (0-5); White Blood Cells 0 SEEN /hpf (0-5)
[2017-11-14 21:15] LABS: Color, Urine Yellow (Yellow); Glucose, Dipstick Normal (Normal); Ketone-Dipstick Negative (Negative); Leukocyte Esterase-Dipstick Negative /ul (Negative); Nitrite-Dipstick Negative (Negative); Occult Blood-Urine Negative /ul (Negative); Protein-Dipstick Negative (Negative); Urine Bilirubin Dipstick Negative (Negative); Urine Clarity Clear (Clear); Urine Urobilinogen Normal (Normal)
[2017-11-14 21:18] LABS: Absolute Lymphocyte Count 2.64 X10^3/ul (0.83-4.51); Absolute Neutrophil Count 6.4 X10^3/uL (2.0-7.7); Basophil# 0.04 X10^3/uL; Basophil% 0.4 % (0-1); Eosinophil# 0.12 X10^3/uL; Eosinophils% 1.2 % (0-5); Lymphocyte # 2.64 X10^3/ul (4.0); Lymphocyte % 26.6 % (19-41); Mean Corp Hgb Conc 34.9 g/gl (32-36); Mean Corpuscular Hgb 33.9 pg (27.0-32.0); Mean Corpuscular Volume 97.1 fL (80-94); Mean Platelet Vol. 10.8 fl (6.2-12.0); Monocyte# 0.69 X10^3/uL; Neutrophil # 6.37 X10^3/uL (2.7-7.7); Neutrophil % 64.3 % (47-70); Platelet Count 201 K/mm3 (150-450); RBC Distribution Width CV 14.4 % (11.6-14.6); RBC Distribution Width SD 49.5 fl (35.1-43.9); Red Blood Count 4.43 M/mm3 (4.6-6.2); White Blood Count 9.9 K/mm3 (4.4-11.0)
[2017-11-14 21:20] LABS: POSITIVE COUNT NO; POSITIVE DIFFERENTIAL NO; POSITIVE MORPHOLOGY NO
[2017-11-14 21:27] LABS: Anion Gap 10 (5-15); BUN 11 mg/dL (7-18); BUN/Creat Ratio 12.4 RATIO (10-20); Calcium,Total 9.1 mg/dL (8.5-10.1); Chloride 106 mmol/L (98-107); Creatinine, Serum 0.88 mg/dL (0.70-1.30); EST Glomerular Filtration Rate 92 mL/min (>60); Est Glom Filt Rate - Afr Amer 111 mL/min (>60); Estimated Creatinine Clearance 87.56 ml/min; Glucose 50 mg/dL (74-106); Potassium 4.2 mmol/L (3.5-5.1); Sodium Level 138 mmol/L (136-145)
[2017-11-14 22:42] VITALS: BP 136/80; PULSE 112; RESP 23; O2SAT 91
[2017-11-14 23:47] VITALS: BP 118/76; PULSE 114; RESP 16
== END 2017-11-14 23:49 | disposition home or self-care (01) ==
PROVIDERS: Emergency Provider Emergency Medicine; Family Provider Family Medicine; PCP Family Medicine
DX: R42 Dizziness and giddiness (principal); E11.9 Type 2 diabetes mellitus without complications; I10 Essential (primary) hypertension; W18.30XA Fall on same level, unspecified, initial encounter; Y92.89 Other specified places as the place of occurrence of the external cause; Y99.9 Unspecified external cause status
CPT/HCPCS: 80048; 81001; 85025; 93005; 99285; J7030

== ENCOUNTER 2018-03-07 13:26 | Emergency (ER) | payer MEDICARE, SELFPAY ==
[2018-03-07 13:27] VITALS: BP 119/70; PULSE 102; RESP 18; TEMP 37.1; O2SAT 99; BMI 35.9
[2018-03-07 15:18] VITALS: O2SAT 95
--- NOTE | 2018-03-07 15:54 | CT_ITS ---
STUDY: CT BRAIN WITHOUT CONTRAST REASON FOR EXAM: Male, 62 years old. Trauma RADIATION DOSAGE (If Supplied By Facility): CTDIvol = ( 60.81 ) mGy, DLP = ( 1135.50 ) mGycm TECHNIQUE: Transaxial CT imaging of the brain was performed without administration of intravenous contrast material. Individualized dose optimization techniques were used for this CT. COMPARISON: Prior study of 10/09/2017 FINDINGS: Normal soft tissue structures. Normal calvarium. There is mild cerebral atrophy with widening of the extra-axial spaces and ventricular dilatation. There are areas of decreased attenuation within the white matter tracts of the supratentorial brain, consistent with microvascular disease changes. Normal basal ganglia and thalami. Normal brainstem. Normal cerebellum. There is no intracranial hemorrhage. There are no findings of an acute ischemic infarction. Normal visualized paranasal sinuses. CT/Brain/Head without Contrast IMPRESSION: Chronic involutional changes of the brain. Electronically Signed: Alexander Mendiola MD at 16:30 EDT , Service support ,
--- NOTE | 2018-03-07 15:54 | CT_ITS ---
STUDY: CT THORACIC SPINE WITHOUT CONTRAST REASON FOR EXAM: Male, 62 years old. Trauma RADIATION DOSAGE (If Supplied By Facility): CTDIvol = ( 40.45 ) mGy, DLP = ( 1647.97 ) mGycm TECHNIQUE: The patient was scanned in a multi detector CT scanner. High resolution imaging was performed. Images were obtained from lower cervical to lower lumbar region.. Sagittal and coronal images were reconstructed. Individualized dose optimization techniques were used for this CT. COMPARISON: Previous MR of the thoracic spine dated 10/09/2017 FINDINGS: There is multilevel degenerative disc disease and cervical spondylosis. There is an increased kyphosis of the thoracic spine. There is no substantial scoliosis. There is multilevel endplate spondylosis of the thoracic spine. There is multilevel degenerative disc disease with loss of the disc space heights. There is old compression fracture with fragmentation of the T12 body. The soft tissue structures are unremarkable. CT/Spine Thoracic without Contras IMPRESSION: 1. Old compression fracture with fragmentation of the T12 body. 2. Increased thoracic kyphosis. 3. Diffuse degenerative changes with multilevel disc space narrowing. 4. There is no evidence of acute fracture or subluxation. Electronically Signed: Alexander Mendiola MD at 16:45 EDT , Service support ,
--- NOTE | 2018-03-07 15:55 | CT_ITS ---
STUDY: CT LUMBAR SPINE WITHOUT CONTRAST REASON FOR EXAM: Male, 62 years old. Trauma RADIATION DOSAGE (If Supplied By Facility): CTDIvol = ( 34.21 ) mGy, DLP = ( 1137.04 ) mGycm TECHNIQUE: The patient was scanned in a multi detector CT scanner. High resolution transaxial imaging was performed. Images were obtained from to . Sagittal and coronal images were reconstructed. Individualized dose optimization techniques were used for this CT. COMPARISON: None FINDINGS: Study is technically limited secondary to patient obesity. Normal lumbar lordosis. There is no substantial scoliosis. There is mild diffuse endplate spondylosis of the lumbar vertebrae. There is again noted old compression fracture with fragmentation of the T12 body. L1-2: Normal endplates. Normal disc height and morphology. Normal bilateral facet joints. Normal central canal and bilateral lateral recesses. Normal bilateral intervertebral neural foramina. There is a nondisplaced fracture of the tip of the right L1 transverse process which is of indeterminate age. L2-3: Normal endplates. Normal disc height and morphology. Normal bilateral facet joints. Normal central canal and bilateral lateral recesses. Normal bilateral intervertebral neural foramina. L3-4: There is moderately severe disc space narrowing with vacuum phenomenon.. There is moderately severe central canal stenosis caused by mild degenerative facet changes, posteriorly bulging annulus, and ligamentum flavum hypertrophy. L4-5: There is mild disc space narrowing. There are bilateral hypertrophic degenerative facet changes. There is no foraminal narrowing. There is severe central canal stenosis caused by posterior bulging annulus, ligament and flavum hypertrophy, and hypertrophic facet changes. L5-S1: There is mild disc space narrowing. There are bilateral hypertrophic degenerative facet changes. There is no central canal stenosis or foraminal narrowing. Normal visualized paraspinous soft tissue structures. CT/Spine Lumbar without Contrast IMPRESSION: Multilevel degenerative changes, as described above. Old compression fracture with fragmentation of the T12 body. There is a question of underlying lytic or destructive process of the T12 body also, raising the suspicion of underlying infectious or lytic neoplastic process. Nondisplaced chip fracture of the tip of the right L1 transverse process, which is of indeterminate age. Electronically Signed: Alexander Mendiola MD at 16:53 EDT , Service support ,
--- NOTE | 2018-03-07 17:41 | ED.DCSUM_ITS ---
- ER Visit Summary Date of Service: 03/07/18 Chief Complaint: Fall History of Present Illness: The patient is a 62 M who is had problems with his balance and usually in place with a cane. Patient states he lost his balance today and hit his head on a doorway. He did fall to the ground but did not lose consciousness. He also complains of mid back pain and states he has a known compression fracture. He has no paresthesias or weakness in his extremities. Physical Examination: Vital signs unremarkable. Patient's lying in bed with his eyes closed. He will open his eyes to voice. Head neck examination reveals abrasions with dried blood over the midline lower forehead. After this area is cleansed there is a 3 cm superficial linear abrasion that does not require repair. C-spine is nontender. Heart is regular rate and rhythm. Lung sounds are clear. Abdomen is soft nontender. Back examination reveals mild tenderness in the lower thoracic region. He has good strength and sensation with no focal deficits. Test Results: CT the head shows chronic involutional changes. CT T-spine shows old compression fracture with fragmentation of T12 body. There is no acute fracture or subluxation. L-spine CT shows multilevel degenerative changes. There is a question of lytic or destruction process of T12. There is a nondisplaced chip fracture of the right L1 transverse process of indeterminate age. Emergency Department Course and Treatment: I did review the patient's prior workup for his compression fracture. He had an MRI in September of this year that showed an acute compression fracture at this time. He will follow-up with his primary care physician for any further ongoing testing. Treatment Plan: [] Disposition: Discharge Impression: 1. Mechanical fall 2. Facial abrasion 3. Back contusion This note was generated with [employer] dictation software. It may contain incorrect words, spelling, and punctuation that were not noted in review of the chart prior to signing ED Disposition - Plan for ED Patient: Chief Complaint: Fall Referrals: Care Physician,No Primary [Primary Care Provider] -
--- NOTE | 2018-03-07 17:41 | ED.DEP ---
ED Disposition - Plan for ED Patient: Disposition: Home or Assisted Living Chief Complaint: Fall Instructions: ED Mechanical Fall, ED Contusion Back, ED Abrasion Referrals: Maria Isabel Abreu MD [STAFF PHYSICIAN] -
== END 2018-03-07 17:47 | disposition home or self-care (01) ==
PROVIDERS: Emergency Provider Emergency Medicine
DX: S00.91XA Abrasion of unspecified part of head, initial encounter (principal); S30.0XXA Contusion of lower back and pelvis, initial encounter; W01.198A Fall on same level from slipping, tripping and stumbling with subsequent striking against other object, initial encounter; Y93.9 Activity, unspecified; Y92.89 Other specified places as the place of occurrence of the external cause; Y99.9 Unspecified external cause status; I25.10 Atherosclerotic heart disease of native coronary artery without angina pectoris; J44.9 Chronic obstructive pulmonary disease, unspecified; E11.9 Type 2 diabetes mellitus without complications; I10 Essential (primary) hypertension; Z87.891 Personal history of nicotine dependence
CPT/HCPCS: 70450; 72128; 72131; 99284

== ENCOUNTER 2018-08-01 16:06 | Emergency (ER) | payer MEDICARE, SELFPAY ==
[2018-08-01 16:10] VITALS: BP 130/76; PULSE 114; PULSE 115; RESP 14; RESP 16; TEMP 36.7; O2SAT 95; O2SAT 99; BMI 34.7
--- NOTE | 2018-08-01 16:39 | ED.VISSUMM ---
- ER Visit Summary Date of Service: 08/01/18 Chief Complaint: Fall History of Present Illness: The patient is a 62 M who presents after a fall that occurred today. Patient states he lost his balance and fell. Patient admits to drinking alcohol today. Patient states he fell forward and hit his forehead. Patient describes the pain is dull. Patient denies any paresthesias or weakness. Patient denies any loss of consciousness. Patient states his last tetanus was within the last 5 years. Patient does admit to a recent cough but is unable to produce any sputum. Patient states he has some pain in his chest with coughing but denies any other chest pain. Patient also admits to some diarrhea. Patient denies any fevers or chills. Physical Examination: Vital signs are stable except for mild tachycardia of 114. Patient is afebrile. Patient is in no acute distress. Patient is awake, alert, and oriented x3. Cranial nerves II through XII are intact. There are no focal motor or sensory deficits noted. Oral mucosa is pink and moist. Neck is supple. Trachea is midline. There is no JVD noted. Skin is warm and dry. There is a superficial abrasion over the bridge of the nose and over the forehead. There is no active bleeding. Heart was regular rate and rhythm. Lungs showed scattered rhonchi in the bases bilaterally. There is good respiratory effort noted. Abdomen is soft and nontender. The remaining physical exam is within normal limits. Test Results: PA and lateral chest x-ray does not show any evidence of acute cardiopulmonary process. CT scan of the brain was obtained. There is no acute intracranial abnormality. CBC and basic metabolic profile were normal. Serum alcohol level was 100. Emergency Department Course and Treatment: Patient felt better on reevaluation. Patient was instructed to follow-up with his primary care physician in 7-10 days. Patient understood and was agreeable with the plan. All questions were answered. Disposition: Discharge home Impression: 1. Closed head injury 2. Alcohol intoxication This note was generated with [employer] dictation software. It may contain incorrect words, spelling, and punctuation that were not noted in review of the chart prior to signing ED Disposition - Plan for ED Patient: Disposition: Home or Assisted Living Diagnosis: Closed head injury, Alcohol intoxication Instructions: ED Mechanical Fall Referrals: Care Physician,No Primary [Primary Care Provider] -
--- NOTE | 2018-08-01 16:41 | CT_ITS ---
STUDY: CT BRAIN WITHOUT CONTRAST REASON FOR EXAM: Male, 62 years old. Posttraumatic concussion RADIATION DOSAGE (If Supplied By Facility): CTDIvol = ( 44.99 ) mGy, DLP = ( 897.35 ) mGycm TECHNIQUE: Transaxial CT imaging of the brain was performed without administration of intravenous contrast material. Individualized dose optimization techniques were used for this CT. COMPARISON: March 07, 2018. FINDINGS: Normal soft tissue structures. Normal calvarium. Calcification of the cavernous carotids Mild atrophy and periventricular white matter ischemic changes.. Normal basal ganglia and thalami. Normal brainstem. Normal cerebellum. There is no intracranial hemorrhage. There are no findings of an acute ischemic infarction. Normal visualized paranasal sinuses. CT/Brain/Head without Contrast IMPRESSION: Mild atrophy and pertinent white matter ischemic changes. No evidence for acute intracranial bleed Electronically Signed: Dk Pritchard MD at 17:32 EST , Service support ,
--- NOTE | 2018-08-01 16:42 | ED.DCSUM_ITS ---
- ER Visit Summary Date of Service: 08/01/18 Chief Complaint: Fall History of Present Illness: The patient is a 62 M who presents after a fall that occurred today. Patient states he lost his balance and fell. Patient admits to drinking alcohol today. Patient states he fell forward and hit his forehead. Patient describes the pain is dull. Patient denies any paresthesias or weakness. Patient denies any loss of consciousness. Patient states his last tetanus was within the last 5 years. Patient does admit to a recent cough but is unable to produce any sputum. Patient states he has some pain in his chest with coughing but denies any other chest pain. Patient also admits to some diarrhea. Patient denies any fevers or chills. Physical Examination: Vital signs are stable except for mild tachycardia of 114. Patient is afebrile. Patient is in no acute distress. Patient is awake, alert, and oriented x3. Cranial nerves II through XII are intact. There are no focal motor or sensory deficits noted. Oral mucosa is pink and moist. Neck is supple. Trachea is midline. There is no JVD noted. Skin is warm and dry. There is a superficial abrasion over the bridge of the nose and over the forehead. There is no active bleeding. Heart was regular rate and rhythm. Kayley ngs showed scattered rhonchi in the bases bilaterally. There is good respiratory effort noted. Abdomen is soft and nontender. The remaining physical exam is within normal limits. Test Results: PA and lateral chest x-ray does not show any evidence of acute cardiopulmonary process. CT scan of the brain was obtained. There is no acute intracranial abnormality. CBC and basic metabolic profile were normal. Serum alcohol level was 100. Emergency Department Course and Treatment: Patient felt better on reevaluation. Patient was instructed to follow-up with his primary care physician in 7-10 days. Patient understood and was agreeable with the plan. All questions were answered. Disposition: Discharge home Impression: 1. Closed head injury 2. Alcohol intoxication This note was generated with [employer] dictation software. It may contain incorrect words, spelling, and punctuation that were not noted in review of the chart prior to signing ED Disposition - Plan for ED Patient: Disposition: Home or Assisted Living Diagnosis: Closed head injury, Alcohol intoxication Instructions: ED Mechanical Fall Referrals: Care Physician,No Primary [Primary Care Provider] -
--- NOTE | 2018-08-01 16:42 | RAD_ITS ---
STUDY: X-RAY CHEST REASON FOR EXAM: Male, 62 years old. Cough TECHNIQUE: Frontal and lateral views COMPARISON: None. FINDINGS: Sternotomy wires are present. The lungs are not fully expanded. There is no demonstrated pleural abnormality. Normal size heart. Normal mediastinum and gene. Normal visualized pulmonary arteries. Normal visualized aortic arch and descending thoracic aorta. Degenerative changes of the visualized thoracic spine. Normal visualized ribs, clavicles, and shoulders. There is no demonstrated abnormality of the visualized soft tissue structures of the upper abdomen. RAD/Chest PA and Lateral IMPRESSION: Normal x-ray examination of the chest. Electronically Signed: Martin Gomez DO at 18:10 EST Tel [phone], Service support ,
[2018-08-01 17:22] LABS: Absolute Lymphocyte Count 1.52 X10^3/ul (0.83-4.51); Absolute Neutrophil Count 6.5 X10^3/uL (2.0-7.7); Basophil# 0.05 X10^3/uL; Basophil% 0.6 % (0-1); Eosinophils% 1.1 % (0-5); Hematocrit 44.4 % (40-54); Hemoglobin 14.7 g/dl (13.0-16.5); Lymphocyte # 1.52 X10^3/ul (4.0); Lymphocyte % 17.4 % (19-41); Mean Corp Hgb Conc 33.1 g/gl (32-36); Mean Corpuscular Hgb 31.7 pg (27.0-32.0); Mean Corpuscular Volume 95.7 fL (80-94); Mean Platelet Vol. 10.9 fl (6.2-12.0); Monocyte# 0.51 X10^3/uL; Monocyte% 5.8 % (0-10); Neutrophil # 6.52 X10^3/uL (2.7-7.7); Neutrophil % 74.5 % (47-70); Platelet Count 203 K/mm3 (150-450); RBC Distribution Width CV 13.4 % (11.6-14.6); RBC Distribution Width SD 46.9 fl (35.1-43.9); Red Blood Count 4.64 M/mm3 (4.6-6.2); White Blood Count 8.8 K/mm3 (4.4-11.0)
[2018-08-01 17:23] LABS: POSITIVE COUNT NO; POSITIVE DIFFERENTIAL NO; POSITIVE MORPHOLOGY NO
[2018-08-01 17:29] LABS: Anion Gap 16 (5-15); BUN 8 mg/dL (7-18); BUN/Creat Ratio 9.6 RATIO (10-20); Calcium,Total 9.2 mg/dL (8.5-10.1); Chloride 100 mmol/L (98-107); Creatinine, Serum 0.83 mg/dL (0.70-1.30); EST Glomerular Filtration Rate 99 mL/min (>60); Est Glom Filt Rate - Afr Amer 119 mL/min (>60); Estimated Creatinine Clearance 92.84 ml/min; Glucose 128 mg/dL (74-106); Sodium Level 135 mmol/L (136-145)
[2018-08-01 18:11] VITALS: BP 128/75; PULSE 95; RESP 14; O2SAT 98
[2018-08-01 20:09] VITALS: BP 115/70; BP 118/80; PULSE 70; PULSE 90; RESP 14; O2SAT 98
== END 2018-08-01 20:21 | disposition home or self-care (01) ==
PROVIDERS: Emergency Provider Emergency Medicine
DX: S09.90XA Unspecified injury of head, initial encounter (principal); W18.30XA Fall on same level, unspecified, initial encounter; Y93.9 Activity, unspecified; Y92.89 Other specified places as the place of occurrence of the external cause; Y99.9 Unspecified external cause status; F10.129 Alcohol abuse with intoxication, unspecified; Y90.5 Blood alcohol level of 100-119 mg/100 ml; I25.10 Atherosclerotic heart disease of native coronary artery without angina pectoris; E11.9 Type 2 diabetes mellitus without complications; I10 Essential (primary) hypertension; E78.00 Pure hypercholesterolemia, unspecified; Z95.1 Presence of aortocoronary bypass graft; R05 Cough; Z79.899 Other long term (current) drug therapy
CPT/HCPCS: 70450; 71046; 80048; 80320; 85025; 99285; A4216; G0480

== ENCOUNTER 2018-08-16 19:11 | Emergency (ER) | payer MEDICARE, SELFPAY ==
[2018-08-16 19:13] VITALS: BP 144/86; PULSE 91; RESP 21; TEMP 36.8; O2SAT 95; BMI 37.2
--- NOTE | 2018-08-16 19:36 | CT_ITS ---
HISTORY: PT STATED FALL EXAM/TECHNIQUE: CT Head or Brain W/O Contrast: Multiplanar reformats provided COMPARISON: 08/01/18 CT brain. FINDINGS: # of images incl. paperwork: 280 No evidence of intracranial hemorrhage, hydrocephalus mass, or acute infarct. No skull fracture. Scattered chronic appearing hypodensities in the cerebral white matter. Volume loss. Similar to prior. Calcific atherosclerosis of the intracranial arteries. CT/Brain/Head without Contrast IMPRESSION: No evidence of intracranial injury or skull fracture. Individualized dose optimization techniques were used for this CT. at 2050 Reported and signed by: Alexander Bojorquez MD Electronically Signed: Alexander Bojorquez, at 20:49 EDT Tel , Service support ,
--- NOTE | 2018-08-16 19:37 | RAD_ITS ---
STUDY: X-RAY CHEST REASON FOR EXAM: Male, 62 years old. Cough. TECHNIQUE: Frontal and lateral views of the chest. COMPARISON: August 01, 2018 FINDINGS: There is mild hyperexpansion unchanged. There is no demonstrated pleural abnormality. There is stable borderline cardiomegaly with sternotomy wires. Normal mediastinum and gene. Normal visualized pulmonary arteries. Normal visualized aortic arch and descending thoracic aorta. There are diffuse degenerative changes of the visualized thoracic spine. Normal visualized ribs, clavicles, and shoulders. There is no demonstrated abnormality of the visualized soft tissue structures of the upper abdomen. RAD/Chest PA and Lateral IMPRESSION: No interval change and no acute pathology. Electronically Signed: Keyon Lockwood MD at 20:53 EDT , Service support ,
--- NOTE | 2018-08-16 19:41 | ED.DCSUM_ITS ---
- ER Visit Summary Date of Service: 08/16/18 Chief Complaint: Fall History of Present Illness: The patient is a 62 M who admits to being drunk and losing his balance. He fell to the floor. Neighbor heard him fall and called EMS when he could not get himself up. Patient denies any injury. His only complaint at this time is he has a cough that has been going on all winter. He will occasionally bring up green colored sputum. He denies fever or chills. Physical Examination: Vital signs unremarkable. Patient sitting upright in bed no acute distress. Head neck examination unremarkable with no sign of trauma. Heart is regular rate and rhythm. Lung sounds are clear. Abdomen is soft nontender. External examination reveals a small abrasion to his left law. No bony tenderness. Neuro exam reveals no focal deficits. Test Results: CBC is unremarkable. Chemistry studies reveal a sodium of 130 and a bicarb of 20. His glucose is 39. His EtOH is 150. Two-view chest x-ray shows no acute pathology. CT head shows no acute injury. Emergency Department Course and Treatment: Patient was given IV fluids. Upon completion of his lab work indicating his hypoglycemia he was given orange juice. A 250 mL bolus of D5 was given. Repeat blood sugar was 87. He was given a p.o. diet. Blood sugar will be checked now and again in 1 hour. Patient lives alone and does not have anyone to come pick him up. He will be o bserved until 11 PM at which point he will be legally sober and able to be discharged home. This will be signed out to oncoming physician but do not anticipate any problems with his discharge. Treatment Plan: [] Disposition: Discharge Impression: 1. Alcohol intoxication 2. Fall secondary to #1 3. Hypoglycemia, improved 4. Chronic cough This note was generated with [employer] dictation software. It may contain incorrect words, spelling, and punctuation that were not noted in review of the chart prior to signing ED Disposition - Plan for ED Patient: Referrals: Care Physician,No Primary [Primary Care Provider] -
[2018-08-16] MEDS: 0.9% Normal Saline 1,000 ML 150 ML IV (19:55)
[2018-08-16 20:04] LABS: Absolute Lymphocyte Count 1.77 X10^3/ul (0.83-4.51); Absolute Neutrophil Count 6.4 X10^3/uL (2.0-7.7); Basophil# 0.04 X10^3/uL; Basophil% 0.4 % (0-1); Eosinophil# 0.13 X10^3/uL; Eosinophils% 1.4 % (0-5); Hematocrit 43.1 % (40-54); Hemoglobin 14.8 g/dl (13.0-16.5); Lymphocyte # 1.77 X10^3/ul (4.0); Lymphocyte % 19.5 % (19-41); Mean Corp Hgb Conc 34.3 g/gl (32-36); Mean Corpuscular Volume 93.3 fL (80-94); Mean Platelet Vol. 10.2 fl (6.2-12.0); Monocyte# 0.71 X10^3/uL; Monocyte% 7.8 % (0-10); Neutrophil % 70.7 % (47-70); Platelet Count 239 K/mm3 (150-450); RBC Distribution Width CV 13.3 % (11.6-14.6); Red Blood Count 4.62 M/mm3 (4.6-6.2); White Blood Count 9.1 K/mm3 (4.4-11.0)
[2018-08-16 20:05] LABS: POSITIVE COUNT NO; POSITIVE DIFFERENTIAL NO; POSITIVE MORPHOLOGY NO
[2018-08-16 20:21] LABS: Anion Gap 11 (5-15); BUN 6 mg/dL (7-18); BUN/Creat Ratio 7.9 RATIO (10-20); Calcium,Total 8.4 mg/dL (8.5-10.1); Chloride 102 mmol/L (98-107); Creatinine, Serum 0.76 mg/dL (0.70-1.30); EST Glomerular Filtration Rate 109 mL/min (>60); Est Glom Filt Rate - Afr Amer 132 mL/min (>60); Estimated Creatinine Clearance 101.39 ml/min; Glucose 39 mg/dL (74-106); Potassium 4.1 mmol/L (3.5-5.1); Sodium Level 133 mmol/L (136-145)
--- NOTE | 2018-08-16 20:21 | ED.RN ---
DR MCGREGOR NOTIFIED OF GLUCOSE RESULTS
[2018-08-16 20:33] VITALS: BP 124/64; PULSE 95; RESP 16; O2SAT 96
[2018-08-16 21:16] LABS: Bedside Glucose 87 mg/dL (70-110)
--- NOTE | 2018-08-16 21:43 | ED.DEP ---
ED Disposition - Plan for ED Patient: Disposition: Home or Assisted Living Instructions: ED Alcohol Intoxication, ED Diabetes Hypoglycemia Oral Agent Referrals: Ronaldo Nettles MD [STAFF PHYSICIAN] - As Needed
[2018-08-16 21:46] LABS: Bedside Glucose 106 mg/dL (70-110)
[2018-08-16 22:29] VITALS: BP 118/72; PULSE 103; RESP 24; O2SAT 93
[2018-08-16 22:31] LABS: Bedside Glucose 93 mg/dL (70-110)
[2018-08-16 23:27] VITALS: BP 110/73; PULSE 102; RESP 20; O2SAT 93
== END 2018-08-16 23:29 | disposition home or self-care (01) ==
PROVIDERS: Emergency Provider Emergency Medicine
DX: R05 Cough (principal); E11.649 Type 2 diabetes mellitus with hypoglycemia without coma; F10.129 Alcohol abuse with intoxication, unspecified; Y90.6 Blood alcohol level of 120-199 mg/100 ml; Z60.2 Problems related to living alone; S80.812A Abrasion, left lower leg, initial encounter; W19.XXXA Unspecified fall, initial encounter; Y93.9 Activity, unspecified; Y92.89 Other specified places as the place of occurrence of the external cause; Y99.9 Unspecified external cause status; I10 Essential (primary) hypertension; J44.9 Chronic obstructive pulmonary disease, unspecified; I25.10 Atherosclerotic heart disease of native coronary artery without angina pectoris; Z95.1 Presence of aortocoronary bypass graft; Z79.899 Other long term (current) drug therapy
CPT/HCPCS: 70450; 71046; 80048; 80320; 82962; 85025; 96360; 96361; 99285; J7030; G0480

== ENCOUNTER 2018-12-22 19:04 | Observation (INO) | payer MEDICARE, SELFPAY ==
[2018-12-22 19:05] VITALS: BP 109/58; PULSE 101; RESP 21; TEMP 37.1; O2SAT 93; BMI 35.9
--- NOTE | 2018-12-22 19:25 | ED.RN ---
BLOOD GLUCOSE 24 UPON ARRIVAL TO ED, 25 GRAMS DEXTROSE GIVEN IV.
[2018-12-22 19:31] LABS: Bedside Glucose 139 mg/dL (70-110)
--- NOTE | 2018-12-22 19:39 | ED.DCSUM_ITS ---
- ER Visit Summary Date of Service: 12/22/18 Chief Complaint: Low blood sugar and falls at home x2 History of Present Illness: The patient is a 63 M history of non-instrumented diabetes, CAD, AK, hypertension prior quadruple bypass. Patient states he has not eaten at all today he lives alone at home. And he fell x2. States he has frequent falls. And he has frequent episodes where his blood sugar drops. He denies any headache, chest pain or shortness of breath. He denies any nausea, vomiting or diarrhea. No fever or chills. States he did not get injured when he fell he suffered a skin tear on his left forearm. He denies any hip pain. No headache or loss of consciousness. Physical Examination: Vital signs are stable. His initial blood pressure is 109/58. Afebrile. He does not look septic or toxic. H EENT exam pupils are reactive light. No signs of facial or scalp trauma. C-spine nontender. Trachea midline. Lungs clear to auscultation bilaterally. Heart regular rhythm no murmur. Abdomen is soft and nontender. Extremities moves all 4. Nontender no deformities. He does have a small skin tear to his left forearm. He does not need to be sewn. There is no bleeding. No bony deformity. He has normal flexion-extension of both upper and lower extremities. Dorsi plantarflexion is intact. Hips are nontender nor are they rotated or shortened. Neurologically he is awake and alert. No focal motor deficits. Test Results: No acute abnormality per me one view read by myself the radiologist. Tachycardia rate of 110. No AK or ischemia. CBC White count 9. Hemoglobin 12.7. No bands. Electrolytes unremarkable glucose 163 gap is elevated 17 creatinine 0.9. UA normal. Lactic acid elevated at 4.3. Blood cultures obtained. Pending. Emergency Department Course and Treatment: On arrival patient had a low blood sugar nurses treated with an amp of D50. Currently is awake and alert. Nursing staff to walk the patient prior to discharge to evaluate his gait. We also have geriatric social work professor consult. Patient is on his second liter normal. He is no longer hypotensive. He has had no fever or white count. I do not know what is currently causing his transient hypotension is resolved with IV fluids. No fever, no white count and no source and no infectious symptoms I do not think he needs antibiotic at this time. Treatment Plan: [facility] Disposition: Admission Impression: Acute falls x2 Transient hypotension of uncertain etiology resolved IV fluids Elevated lactic acid Acute left forearm skin tear Acute hypoglycemia History of diabetes This note was generated with [employer] dictation software. It may contain incorrect words, spelling, and punctuation that were not noted in review of the chart prior to signing ED Disposition - Plan for ED Patient: Referrals: Care Physician,No Primary [Primary Care Provider] -
[2018-12-22 20:04] LABS: Absolute Lymphocyte Count 1.78 X10^3/uL (0.83-4.51); Absolute Neutrophil Count 6.5 X10^3/uL (2.0-7.7); Basophil# 0.03 X10^3/uL; Basophil% 0.3 % (0-1); Eosinophil# 0.12 X10^3/uL; Eosinophils% 1.3 % (0-5); Hematocrit 37.4 % (40-54); Hemoglobin 12.7 g/dL (13.0-16.5); Lymphocyte # 1.78 X10^3/ul (4.0); Lymphocyte % 19.5 % (19-41); Mean Corpuscular Hgb 32.4 pg (27.0-32.0); Mean Corpuscular Volume 95.4 fL (80-94); Monocyte% 7.7 % (0-10); NRBC Flagged by Analyzer 0 % (0-5); Neutrophil # 6.48 X10^3/uL (2.7-7.7); Neutrophil % 70.8 % (47-70); Platelet Count 202 K/mm3 (150-450); RBC Distribution Width CV 13.2 % (11.6-14.6); RBC Distribution Width SD 46.4 fl (35.1-43.9); Red Blood Count 3.92 M/mm3 (4.6-6.2); White Blood Count 9.2 K/mm3 (4.4-11.0)
[2018-12-22 20:12] LABS: Anion Gap 17 (5-15); BUN 16 mg/dL (7-18); BUN/Creat Ratio 16.5 RATIO (10-20); Calcium,Total 7.9 mg/dL (8.5-10.1); Chloride 100 mmol/L (98-107); Creatinine, Serum 0.97 mg/dL (0.70-1.30); EST Glomerular Filtration Rate 83 mL/min (>60); Est Glom Filt Rate - Afr Amer 100 mL/min (>60); Estimated Creatinine Clearance 78.39 ml/min; Glucose 163 mg/dL (74-106); Potassium 3.6 mmol/L (3.5-5.1); Sodium Level 136 mmol/L (136-145)
[2018-12-22 20:15] VITALS: BP 86/61
[2018-12-22 20:45] VITALS: BP 85/60
[2018-12-22 21:00] VITALS: BP 91/59; PULSE 92; RESP 16; O2SAT 98
[2018-12-22] MEDS: 0.9% Normal Saline 1,000 ML 999 ML IV ×2 (21:00→23:31)
[2018-12-22 21:01] LABS: Bedside Glucose 95 mg/dL (70-110)
--- NOTE | 2018-12-22 21:05 | RAD_ITS ---
STUDY: X-RAY CHEST REASON FOR EXAM: Male, 63 years old. Chest pain TECHNIQUE: Frontal view of the chest COMPARISON: X-Ray Chest August 16, 2018 FINDINGS: Sternotomy changes present. The lungs are clear. There are no pleural effusions. There is no pneumothorax. The heart is normal in size. The visualized osseous structures are within normal limits. RAD/Chest 1 View (Portable) IMPRESSION: No acute thoracic pathology. Electronically Signed: Dk Parisi, at 21:20 EDT Tel , Service support ,
[2018-12-22 21:45] LABS: Lactic Acid 4.3 mmol/L (0.4-2.0)
--- NOTE | 2018-12-22 21:50 | ED.RN ---
LAB CALLED WITH CRITICAL LAB RESULTS. LACTIC ACID 4.3. DR. ELLSWORTH MADE AWARE. NO NEW ORDERS AT THIS TIME
[2018-12-22 22:20] VITALS: BP 121/64; PULSE 112; RESP 16; O2SAT 96
[2018-12-22 22:24] LABS: Bacteria 0 SEEN /hpf (None Seen); Mucous, Urine 0 SEEN /hpf (<or=2+); Red Blood Cells-Urine 0 SEEN /hpf (0-5); Squamous Epithelial Cells - UA 0 SEEN /hpf (0-5)
[2018-12-22 22:35] LABS: Color, Urine Yellow (Yellow); Glucose, Dipstick Normal (Normal); Ketone-Dipstick 5 mg/dl (Negative); Leukocyte Esterase-Dipstick Negative /ul (Negative); Nitrite-Dipstick Negative (Negative); Occult Blood-Urine Negative /ul (Negative); Protein-Dipstick 30 mg/dl (Negative); Urine Bilirubin Dipstick Negative (Negative); Urine Clarity Clear (Clear); Urine Urobilinogen 1 mg/dl (Normal)
[2018-12-22 22:43] LABS: White Blood Cells 0-5 SEEN /hpf (0-5)
--- NOTE | 2018-12-22 23:14 | EKG12_ITS ---
Test Reason : LOW BLOOD SUGAR Blood Pressure : / mmHG Vent. Rate : 110 BPM Atrial Rate : 110 BPM P-R Int : 204 ms QRS Dur : 074 ms QT Int : 340 ms P-R-T Axes : -14 092 029 degrees QTc Int : 460 ms Sinus tachycardia with Premature supraventricular complexes Rightward axis Septal infarct (cited on or before 09-OCT-2017), age undetermined Abnormal ECG Confirmed by MADELINE WANG, MARGOT ([id number]), editor in chief ZOFIA MURPHY ([id number]) on 12/24/2018 10:47:14 AM Referred By: DR FISHER Confirmed By:MARGOT CORREA MD
[2018-12-22 23:31] VITALS: BP 151/80
[2018-12-22 23:35] LABS: Bedside Glucose 114 mg/dL (70-110)
--- NOTE | 2018-12-23 00:15 | PCM.HP.STD ---
Problem List (1) Hypoglycemia Status: Acute (2) CAD (coronary artery disease) Status: Chronic Qualifiers: (3) DM2 (diabetes mellitus, type 2) Status: Chronic History of Present Illness Date of Admission: 12/23/18 Chief Complaint: hypoglycemia, frequent falls The patient is a 63 year old M [male patient with a significant past medical history of diabetes who suffers frequent falls and has multiple contusions on his upper arms in various stages of healing resents to the emergency room obtunded with initial blood sugar of 23. The patient states he has not eaten today and he says this is a frequent occurrence. He says Dr. Rodriguez in [place] is his doctor and his last A1c was 5.0 and he currently takes metformin for the past 10 years but admits to not following up with his primary care in quite some time. No chest pain shortness breath fevers chills nausea vomiting diarrhea. Patient will be admitted for observation to general medical floor.] Past Medical History Past Medical History (Chronic Problems): Chronic Problems Post concussion syndrome (Chronic) CAD (coronary artery disease) (Chronic) Vertigo (Chronic) DM2 (diabetes mellitus, type 2) (Chronic) Allergies Qnshvpv-Ooc-Ihs Reductase Inhibitor Allergy (Verified 08/01/18 16:08) Swelling Home Medications: Ambulatory Orders Medication Instructions Recorded metFORMIN HCl [Glucophage] 1,000 mg PO BIDCM 07/21/13 Losartan Potassium [Cozaar] 50 mg PO DAILY #30 tab 10/18/17 Glipizide 5 mg PO DAILY 12/22/18 Surgical History: coronary bypass surgery Psychiatric History: No pertinent psych hx Smoking Status: Former smoker - *Family History Paternal History Items: Heart Disease Review of Systems Constitutional: Reports: Malaise, Weakness, Fatigue. Denies: Chills, Fever, Weight Change HEENT: Denies: Head Aches, Sinus Congestion, Sinus Drainage Cardiovascular: Denies: Chest Pain, Palpitations Respiratory: Denies: Cough, Shortness of breath at rest, Sputum production Gastrointestinal: Denies: Abdominal Pain, Nausea, Vomiting Genitourinary: Denies: Dysuria Musculoskeletal: Denies: Joint Pain, Joint Tenderness Skin: Denies: Rash, Wounds Neurological: Reports: Balance problems. Denies: Focal weakness, Numbness, Tingling Psychiatric: Denies: Anxiety, Depression, Homicidal Ideations, Suicidal Ideations Hematologic/ Lymphatic: Denies: Easy Bruising, Easy Bleeding VTE Information - Inpt Only VTE Present on Admission: No VTE Mechan Device Prophylaxis: None VTE Pharm Prophylaxis ordered?: Yes Patient Problems: Active and Suspected Problems Hypoglycemia (Acute) - Physical Exam General: Alert, Oriented x3, Cooperative HEENT: Atraumatic, Normocephalic Neck: Supple Lungs: Clear to auscultation, Normal air movement Cardiovascular: Regular rate, Normal S1, Normal S2, No murmurs Abdomen: Bowel Sounds Present, Soft, Non Tender, Obese Extremities: No edema Skin: No rashes Musculoskeletal: No Tenderness to Palpation of Joints or Extremities Neurological: Neuro grossly intact Psych/Mental Status: Normal Affect, Appropriate Vital Signs Temp Pulse Resp BP Pulse Ox 98.7 F 112 H 16 151/80 H 96 12/22/18 19:05 12/22/18 22:20 12/22/18 22:20 12/22/18 23:31 12/22/18 22:20 Oxygen Delivery Method Room Air Weight: 250 lb Body Mass Index (BMI) 35.9 Finger Stick Blood Glucose 97 Laboratory Tests Past 24 Hrs 12/22/18 12/22/18 12/22/18 19:15 19:15 21:15 WBC 9.2 RBC 3.92 L Hgb 12.7 L Hct 37.4 L MCV 95.4 H MCH 32.4 H MCHC 34.0 RDW Std Deviation 46.4 H RDW Coeff of Fred 13.2 Plt Count 202 MPV 11.0 Immature Gran % (Auto) 0.400 Neut % (Auto) 70.8 H Lymph % (Auto) 19.5 [place] % (Auto) 7.7 Eos % (Auto) 1.3 Baso % (Auto) 0.3 Absolute Neuts (auto) 6.5 Absolute Lymphs (auto) 1.78 Nucleated RBC % 0 Sodium 136 Potassium 3.6 Chloride 100 Carbon Dioxide 19.0 L Anion Gap 17 H BUN 16 Creatinine 0.97 Estim Creat Clear Calc 78.39 Est GFR (MDRD) Af Amer 100 Est GFR (MDRD) Non-Af 83 BUN/Creatinine Ratio 16.5 Glucose 163 H Lactic Acid 4.3 H* Calcium 7.9 L Urine Color Urine Clarity Urine pH Ur Specific [place] Urine Protein Urine Glucose (UA) Urine Ketones Urine Occult Blood Urine Nitrite Urine Bilirubin Urine Urobilinogen Ur Leukocyte Esterase Urine RBC Urine WBC Ur Squamous Epith Cells Urine Bacteria Urine Mucus 12/22/18 22:15 WBC RBC Hgb Hct MCV MCH MCHC RDW Std Deviation RDW Coeff of Fred Plt Count MPV Immature Gran % (Auto) Neut % (Auto) Lymph % (Auto) [place] % (Auto) Eos % (Auto) Baso % (Auto) Absolute Neuts (auto) Absolute Lymphs (auto) Nucleated RBC % Sodium Potassium Chloride Carbon Dioxide Anion Gap BUN Creatinine Estim Creat Clear Calc Est GFR (MDRD) Af Amer Est GFR (MDRD) Non-Af BUN/Creatinine Ratio Glucose Lactic Acid Calcium Urine Color Yellow Urine Clarity Clear Urine pH 5.0 Ur Specific [place] 1.020 Urine Protein 30 H Urine Glucose (UA) Normal Urine Ketones 5 H Urine Occult Blood Negative Urine Nitrite Negative Urine Bilirubin Negative Urine Urobilinogen 1 H Ur Leukocyte Esterase Negative Urine RBC 0 SEEN Urine WBC 0-5 SEEN Ur Squamous Epith Cells 0 SEEN Urine Bacteria 0 SEEN Urine Mucus 0 SEEN POC Glucose 12/22/18 12/22/18 12/22/18 23:30 20:54 19:25 POC Glucose 114 H 95 139 H Assessment/Plan All Active Problems Rhabdomyolysis (Acute) CANDI (acute kidney injury) (Acute) Leukocytosis (Acute) Hypoglycemia (Acute) Chronic Problems Post concussion syndrome (Chronic) CAD (coronary artery disease) (Chronic) Vertigo (Chronic) DM2 (diabetes mellitus, type 2) (Chronic) Plan 1. Hypoglycemia?continue metformin, check A1c and BMP in the morning 2. Coronary artery disease?continue routine medications 3. DVT prophylaxis?low molecular weight heparin Encourage patient to follow-up closely with primary care as it seems that he has not been doing so and that has led to more episodes of hypoglycemia due to medication for diabetes Code Visit OBSV E&M: [id number] Initial observation care L2
[2018-12-23 01:10] VITALS: BMI 35.5
[2018-12-23 01:14] VITALS: BP 130/66; PULSE 105; RESP 18; TEMP 37.1; O2SAT 95
[2018-12-23 01:17] LABS: Reflex Lactate? Y
[2018-12-23 01:35] VITALS: BMI 35.5
[2018-12-23] MEDS: 0.9% NaCl Peripheral Flush Adult/Peds IV (02:02)
[2018-12-23 02:16] LABS: Lactic Acid 1.9 mmol/L (0.4-2.0)
[2018-12-23 02:20] LABS: Bedside Glucose 82 mg/dL (70-110)
[2018-12-23 02:29] VITALS: PULSE 105; RESP 18; O2SAT 95
[2018-12-23 04:15] LABS: Bedside Glucose 188 mg/dL (70-110)
[2018-12-23 06:18] VITALS: BP 139/74; PULSE 100; RESP 18; TEMP 36.9; O2SAT 96
[2018-12-23 06:25] LABS: Bedside Glucose 225 mg/dL (70-110)
[2018-12-23 07:19] LABS: Anion Gap 9 (5-15); BUN 17 mg/dL (7-18); Calcium,Total 8.5 mg/dL (8.5-10.1); Chloride 103 mmol/L (98-107); Creatinine, Serum 1.06 mg/dL (0.70-1.30); EST Glomerular Filtration Rate 75 mL/min (>60); Est Glom Filt Rate - Afr Amer 90 mL/min (>60); Estimated Creatinine Clearance 71.74 ml/min; Glucose 208 mg/dL (74-106); Potassium 4.4 mmol/L (3.5-5.1); Sodium Level 137 mmol/L (136-145)
[2018-12-23 09:09] LABS: Magnesium 2.1 mg/dL (1.6-2.6)
[2018-12-23] MEDS: Glucerna Shake 120 ML LIQUID PO ×3 (10:01→17:35)
[2018-12-23] MEDS: Losartan Potassium 50 MG Tablet PO (10:01)
[2018-12-23] MEDS: Enoxaparin 40 MG/0.4 ML Syringe SC (10:02)
--- NOTE | 2018-12-23 11:16 | DCINST_ITS ---
- Discharge Diagnoses Current Active Problems: Current Active and Chronic Problems Hypoglycemia (Acute) You will use the following diet at home:: Calorie/Carbohydrate Controlled (specify 1200, 1400, etc) - 1800 shannan / day, Cardiac Your food should be the consistency of: Regular Your liquids should be the consistency of: Regular/Thin Discharge Activity: Return to Normal Activity Allergies/Adverse Reactions: Allergies Azipezw-Mio-Mpy Reductase Inhibitor Allergy (Verified 08/01/18 16:08) Swelling Medications to take at Discharge Losartan Potassium [Cozaar] 50 mg PO DAILY #30 tab 10/18/17 Glipizide 5 mg PO DAILY 12/22/18 Aspirin, Baby 81 mg PO DAILY 12/23/18 Primary Care Physician: Care Physician,No Primary [Primary Care Provider] - Please follow up with your Primary Care Physician in: 1 week Test Results: Test results from this visit will be discussed in further detail at your follow- up appointment, if applicable. Proposed Discharge Date: 12/23/18
[2018-12-23] MEDS: glipiZIDE 5 MG Tablet PO (11:48)
[2018-12-23 11:50] LABS: Bedside Glucose 196 mg/dL (70-110)
[2018-12-23] MEDS: Insulin Lispro 100 UNIT/ML INSULN.PEN SC ×2 (11:54→17:34)
[2018-12-23 12:00] VITALS: BP 152/72; PULSE 89; RESP 18; TEMP 36.7; O2SAT 97
--- NOTE | 2018-12-23 13:12 | PCM.DC.SUM ---
Discharge Date and Diagnosis - Problem List Patient Problems: Active and Suspected Problems Hypoglycemia (Acute) Date of Admission: 12/23/18 Date of Discharge: 12/23/18 - Primary Discharge Diagnosis Active and Suspected Problems Hypoglycemia (Acute) 2/2 oral antidiabetics Lactic acidosis 2/2 metformin DMt2 CAD - Secondary Discharge Diagnosis Chronic Problems Post concussion syndrome (Chronic) CAD (coronary artery disease) (Chronic) Vertigo (Chronic) DM2 (diabetes mellitus, type 2) (Chronic) Hospital Course and Treatment Imaging Results: RAD/Chest 1 View (Portable) IMPRESSION: No acute thoracic pathology. Operations: None, - Procedures: None Summary of Care Provided: Hospital course: The patient is a 63 year old M with past medical history as above who presented to the emergency room with a low blood sugar of 23 as per the emergency squad record. Fallen at home twice. He stated that he had not eaten anything at home. He had reported multiple episodes of low blood sugar at home recently. He also reported his last A1c was 5.0. He had been taking metformin and glipizide for type 2 diabetes. In the ER he was found to have lactic acidosis at 4.3, he had mild tachycardia, and hypotension at 86/61. He was given an amp of D50 on arrival, and provided with IV fluids, after which she had good blood sugar and blood pressure. He was taken off of his anti-glycemic's and placed in the PCU on telemetry. He had no events on telemetry overnight. His blood sugar increased into the 200s overnight. It was decided that he would go back on glipizide and not metformin given the lactic acidosis. He was monitored after resuming glipizide. He remained in stable condition and was discharged home in stable condition, and will need to follow-up with his PCP in 1 week. A1c is pending. This patient was seen by Mahad Owen PA-C under the supervision of Doctor Geo. [] Patient Problems: Active and Suspected Problems Hypoglycemia (Acute) - Physical Exam General: Alert, Oriented x3, Cooperative HEENT: Atraumatic, PERRLA, EOMI, Normocephalic Neck: Supple, No JVD, Negative Carotid Bruits Lungs: Clear to auscultation, Normal air movement Cardiovascular: Regular rate, No murmurs Abdomen: Bowel Sounds Present, Soft, Non Tender Extremities: No edema, Capillary Refill Less than 3 Seconds Skin: No rashes, No breakdown Musculoskeletal: No Tenderness to Palpation of Joints or Extremities Neurological: Cranial nerves II-XII grossly intact Psych/Mental Status: Appropriate, Anxious Vital Signs Temp Pulse Resp BP Pulse Ox 98.0 F 89 18 152/72 H 97 12/23/18 12:00 12/23/18 12:00 12/23/18 12:00 12/23/18 12:00 12/23/18 12:00 Oxygen Delivery Method Room Air Weight: 248 lb 3.848 oz Body Mass Index (BMI) 35.5 Finger Stick Blood Glucose 97 Intake and Output for Last 24 Hours 12/21/18 12/22/18 12/23/18 23:59 23:59 23:59 Intake Total 320 / 320 Output Total 650 / 650 Balance -330 / -330 Laboratory Tests Past 24 Hrs 12/22/18 12/22/18 12/22/18 19:15 19:15 21:15 WBC 9.2 RBC 3.92 L Hgb 12.7 L Hct 37.4 L MCV 95.4 H MCH 32.4 H MCHC 34.0 RDW Std Deviation 46.4 H RDW Coeff of Fred 13.2 Plt Count 202 MPV 11.0 Immature Gran % (Auto) 0.400 Neut % (Auto) 70.8 H Lymph % (Auto) 19.5 [place] % (Auto) 7.7 Eos % (Auto) 1.3 Baso % (Auto) 0.3 Absolute Neuts (auto) 6.5 Absolute Lymphs (auto) 1.78 Nucleated RBC % 0 Sodium 136 Potassium 3.6 Chloride 100 Carbon Dioxide 19.0 L Anion Gap 17 H BUN 16 Creatinine 0.97 Estim Creat Clear Calc 78.39 Est GFR (MDRD) Af Amer 100 Est GFR (MDRD) Non-Af 83 BUN/Creatinine Ratio 16.5 Glucose 163 H Hemoglobin A1c Lactic Acid 4.3 H* Calcium 7.9 L Magnesium Urine Color Urine Clarity Urine pH Ur Specific [place] Urine Protein Urine Glucose (UA) Urine Ketones Urine Occult Blood Urine Nitrite Urine Bilirubin Urine Urobilinogen Ur Leukocyte Esterase Urine RBC Urine WBC Ur Squamous Epith Cells Urine Bacteria Urine Mucus 12/22/18 12/23/18 12/23/18 22:15 01:35 06:16 WBC RBC Hgb Hct MCV MCH MCHC RDW Std Deviation RDW Coeff of Fred Plt Count MPV Immature Gran % (Auto) Neut % (Auto) Lymph % (Auto) [place] % (Auto) Eos % (Auto) Baso % (Auto) Absolute Neuts (auto) Absolute Lymphs (auto) Nucleated RBC % Sodium 137 Potassium 4.4 Chloride 103 Carbon Dioxide 25.0 Anion Gap 9 BUN 17 Creatinine 1.06 Estim Creat Clear Calc 71.74 Est GFR (MDRD) Af Amer 90 Est GFR (MDRD) Non-Af 75 BUN/Creatinine Ratio 16.0 Glucose 208 H Hemoglobin A1c Lactic Acid 1.9 Calcium 8.5 Magnesium Urine Color Yellow Urine Clarity Clear Urine pH 5.0 Ur Specific [place] 1.020 Urine Protein 30 H Urine Glucose (UA) Normal Urine Ketones 5 H Urine Occult Blood Negative Urine Nitrite Negative Urine Bilirubin Negative Urine Urobilinogen 1 H Ur Leukocyte Esterase Negative Urine RBC 0 SEEN Urine WBC 0-5 SEEN Ur Squamous Epith Cells 0 SEEN Urine Bacteria 0 SEEN Urine Mucus 0 SEEN 12/23/18 12/23/18 06:16 06:20 WBC RBC Hgb Hct MCV MCH MCHC RDW Std Deviation RDW Coeff of Fred Plt Count MPV Immature Gran % (Auto) Neut % (Auto) Lymph % (Auto) [place] % (Auto) Eos % (Auto) Baso % (Auto) Absolute Neuts (auto) Absolute Lymphs (auto) Nucleated RBC % Sodium Potassium Chloride Carbon Dioxide Anion Gap BUN Creatinine Estim Creat Clear Calc Est GFR (MDRD) Af Amer Est GFR (MDRD) Non-Af BUN/Creatinine Ratio Glucose Hemoglobin A1c Pending Lactic Acid Calcium Magnesium 2.1 Urine Color Urine Clarity Urine pH Ur Specific [place] Urine Protein Urine Glucose (UA) Urine Ketones Urine Occult Blood Urine Nitrite Urine Bilirubin Urine Urobilinogen Ur Leukocyte Esterase Urine RBC Urine WBC Ur Squamous Epith Cells Urine Bacteria Urine Mucus POC Glucose 12/23/18 12/23/18 12/23/18 11:45 06:22 04:10 POC Glucose 196 H 225 H 188 H 12/23/18 12/22/18 12/22/18 01:19 23:30 20:54 POC Glucose 82 114 H 95 12/22/18 19:25 POC Glucose 139 H Discharge Diet: Low fat/ Low Cholesterol, 1800 Calorie Control Diet, 2000 mg Sodium Diet Discharge Activity: Return to Normal Activity Home Medications: Medications to take at Discharge Losartan Potassium [Cozaar] 50 mg PO DAILY #30 tab 10/18/17 Glipizide 5 mg PO DAILY 12/22/18 Aspirin, Baby 81 mg PO DAILY 12/23/18 Primary Care Physician: Care Physician,No Primary [Primary Care Provider] - Please follow up with your Primary Care Physician in: 1 week Disposition: Home Minutes spent on discharge:: 35 Patient Condition:: Stable Medical Necessity - Tobacco Use Smoking Status: Former smoker Meaningful Use Info Meaningful Use Diagnoses (Choose all that apply): None applicable
[2018-12-23 15:06] LABS: Bedside Glucose 24 mg/dL (70-110)
[2018-12-23 15:14] LABS: Hemoglobin A1c 5.8 % (4.2-6.3)
[2018-12-23 15:22] VITALS: BP 130/64; BP 138/82; BP 154/75; PULSE 78; PULSE 80; PULSE 98
[2018-12-23 15:41] LABS: Bedside Glucose 237 mg/dL (70-110)
== END 2018-12-23 11:17 | disposition home or self-care (01) ==
LOC: ED 23:56 → PCU 12-23 01:04
PROVIDERS: Physician Assistant; Admitting Provider Family Medicine; Emergency Provider Emergency Medicine; Visit Provider Internal Medicine
DX: E11.649 Type 2 diabetes mellitus with hypoglycemia without coma (principal); E87.2 Acidosis; T38.3X5A Adverse effect of insulin and oral hypoglycemic [antidiabetic] drugs, initial encounter; I25.10 Atherosclerotic heart disease of native coronary artery without angina pectoris; I10 Essential (primary) hypertension; R29.6 Repeated falls; S51.812A Laceration without foreign body of left forearm, initial encounter; W19.XXXA Unspecified fall, initial encounter; Y93.9 Activity, unspecified; Y92.9 Unspecified place or not applicable; I95.9 Hypotension, unspecified; Z79.899 Other long term (current) drug therapy; Z79.84 Long term (current) use of oral hypoglycemic drugs; Z79.82 Long term (current) use of aspirin; Z95.1 Presence of aortocoronary bypass graft; Z87.891 Personal history of nicotine dependence
CPT/HCPCS: 36415; 71045; 80048; 81001; 82962; 83036; 83605; 83735; 85025; 87040; 93005; 96360; 96361; 96372; 97162; 97166; 97802; 99218; 99285; J7030; P9612; A4216; G0378

== ENCOUNTER 2018-12-26 22:41 | Emergency (ER) | payer MEDICARE, SELFPAY ==
[2018-12-26 22:43] VITALS: BP 149/85; PULSE 98; RESP 16; TEMP 37.1; O2SAT 94; BMI 36.0
--- NOTE | 2018-12-26 22:59 | ED.RN ---
PER EMS PT DOES NOT APPEAR SAFE IN HOME, UNSTEADY ON FEET. PT ADMITS TO FREQUENT FALLS. ABRASION, BRUISES ON BILATERAL ARMS IN VARIOUS STAGES OF HEALING. ADULT PROTECTIVE SERVICES NOTIFIED BY EMS.
[2018-12-26 23:05] LABS: Bedside Glucose 138 mg/dL (70-110)
--- NOTE | 2018-12-26 23:17 | EKG12_ITS ---
Test Reason : Blood Pressure : / mmHG Vent. Rate : 099 BPM Atrial Rate : 099 BPM P-R Int : 194 ms QRS Dur : 074 ms QT Int : 342 ms P-R-T Axes : 022 086 025 degrees QTc Int : 438 ms Normal sinus rhythm Septal infarct , age undetermined Abnormal ECG Confirmed by MADELINE WANG, MARGOT ([id number]), editor managing newspaper [employer] DIA ([id number] on 12/29/2018 11:49:13 AM Referred By: DC Confirmed By:MARGOT CORREA MD
--- NOTE | 2018-12-26 23:18 | ED.VIS.FALL ---
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 Negative for: Prodromal, Dizziness, Vertigo, Lightheadedness, Near-syncope Usually ambulates: Without assistance Location: face Quality of Pain: - - sore Current Severity: Mild Maximum Severity: Mild Associated Symptoms: Inability to ambulate - without assistance. Negative for: Parasthesias, Weakness, Loss of function, Loss of consciousness, Amnesia Narrative: Patient states he just fell. He was walking to the bathroom. He states this happens at home all the time, he has lived alone for a couple of years. States he never gets any warning. He has been hypoglycemic before, but does not feel weak, shaky, lightheaded. Denies any dizziness, denies any weakness in his legs, he had his eyeglasses on and when he hit the floor his eyeglasses scraped his face, but other than that he denies any other injuries. He denies loss of consciousness. He has a very minor headache, but no nausea or vomiting or confusion or focal neurologic symptoms. Furthermore, per EMS, pt has deplorable living conditions at home, and they plan to contact adult protection services regarding this. - Past Medical History (1) CAD (coronary artery disease) Status: Chronic (2) DM2 (diabetes mellitus, type 2) Status: Chronic (3) Post concussion syndrome Status: Chronic (4) Vertigo Status: Chronic Past Medical History - Allergies and Home Meds Allergies/Adverse Reactions: Allergies Yiovkcf-Dif-Wvh Reductase Inhibitor Allergy (Verified 12/26/18 22:52) Swelling Primary Care Physician: Rishi Pierce MD [STAFF PHYSICIAN] - 5-7 Days Surgical History: coronary bypass surgery Lives: Alone Smoking Status: Former smoker - Family History Paternal Family History: Reports: Heart Disease Review of Systems General: Denies: Chills, Fever, Malaise, Sweats Eyes: Denies: Visual changes - bilaterally, Diplopia ENT: Denies: Rhinorrhea, Sore throat Cardiovascular: Denies: Chest pain, Palpitations Respiratory: Reports: Cough. Denies: Dyspnea, Sputum, Dyspnea on exertion Gastrointestinal: Denies: Abdominal pain, Nausea, Vomiting, Diarrhea, Melena, Hematochezia Genitourinary: Denies: Dysuria, Hematuria, Frequency Musculoskeletal: Denies: Back pain, Extremity Pain Skin: Reports: Abrasions, Wounds. Denies: Rash Neurological: Reports: Headache. Denies: Weakness, Parasthesia, Numbness Physical Exam Vital Signs/Narrative: Vital Signs Temp Pulse Resp BP Pulse Ox 12/26/18 22:43 98.8 F 98 16 149/85 H 94 Inital Vital Signs reviewed: Yes General: Well nourished, Well developed Head: Normocephalic, Trauma - Abrasion left zygomatic arch without bony tenderness. Eyes: Perrl, EOMI - Without pain or diplopia or extraocular entrapment ENT: TM's clear, No hemotympanum or drainage, - - Abrasion without bony tenderness left zygomatic arch. Negative for: Otorrhea, Nasal trauma - Bandage on old wound from a week ago Neck: Nontender, Full ROM Cardiovascular: Regular rate, Regular rhythm, No murmurs Respiratory: No distress, CTA bilaterally, Chest nontender Abdomen: Soft, Nontender, Nondistended, Normal bowel sounds Back: Nontender. Negative for: Spinal Tenderness Skin: Normal color, No rash, Trauma - Abrasion left face. Old healing wounds on nose, left upper extremity without signs of infection Neurological: Alert, Oriented x3, Cranial nerves II-XII grossly intact, Normal Strength, Normal Sensation Psychological: Normal affect, Normal Mood Diagnostic/Tx/Re-eval Impressions Chest X-Ray 12/26/18 23:50 IMPRESSION: No acute cardiopulmonary abnormality. Trace left pleural effusion versus pleural scarring. at 0014 Reported and signed by: Donna Bhagat MD Electronically Signed: Donna Bhagat MD at 0:14 EDT Tel , Service support , 12/26/18 23:50 Chest PA and Lateral [RAD] Stat Laboratory Results 12/26/18 12/26/18 12/26/18 22:56 23:40 23:50 WBC 6.7 RBC 4.17 L Hgb 13.8 Hct 40.0 MCV 95.9 H MCH 33.1 H MCHC 34.5 RDW Std Deviation 46.4 H RDW Coeff of Fred 13.1 Plt Count 186 MPV 10.5 Immature Gran % (Auto) 0.400 Neut % (Auto) 62.8 Lymph % (Auto) 24.6 [place] % (Auto) 9.2 Eos % (Auto) 2.4 Baso % (Auto) 0.6 Absolute Neuts (auto) 4.2 Absolute Lymphs (auto) 1.65 Nucleated RBC % 0 Sodium Potassium Chloride Carbon Dioxide Anion Gap BUN Creatinine Estim Creat Clear Calc Est GFR (MDRD) Af Amer Est GFR (MDRD) Non-Af BUN/Creatinine Ratio Glucose Calcium Troponin I Urine Color Straw Urine Clarity Clear Urine pH 6.0 Ur Specific [place] 1.005 Urine Protein Negative Urine Glucose (UA) Normal Urine Ketones Negative Urine Occult Blood Negative Urine Nitrite Negative Urine Bilirubin Negative Urine Urobilinogen Normal Ur Leukocyte Esterase Negative Urine RBC 0 SEEN Urine WBC 0 SEEN Ur Squamous Epith Cells 0 SEEN Urine Bacteria RARE Urine Mucus 0 SEEN Ethyl Alcohol POC Glucose 138 H 12/26/18 12/26/18 23:50 23:50 WBC RBC Hgb Hct MCV MCH MCHC RDW Std Deviation RDW Coeff of Fred Plt Count MPV Immature Gran % (Auto) Neut % (Auto) Lymph % (Auto) [place] % (Auto) Eos % (Auto) Baso % (Auto) Absolute Neuts (auto) Absolute Lymphs (auto) Nucleated RBC % Sodium 139 Potassium 3.8 Chloride 105 Carbon Dioxide 25.0 Anion Gap 9 BUN 6 L Creatinine 0.81 Estim Creat Clear Calc 93.88 Est GFR (MDRD) Af Amer 124 Est GFR (MDRD) Non-Af 102 BUN/Creatinine Ratio 7.4 L Glucose 137 H Calcium 9.6 Troponin I < 0.015 Urine Color Urine Clarity Urine pH Ur Specific [place] Urine Protein Urine Glucose (UA) Urine Ketones Urine Occult Blood Urine Nitrite Urine Bilirubin Urine Urobilinogen Ur Leukocyte Esterase Urine RBC Urine WBC Ur Squamous Epith Cells Urine Bacteria Urine Mucus Ethyl Alcohol 121.0 POC Glucose - Rhythm Strip Rhythm Strip: Sinus Rhythm Rate: 99 Ectopy: None - EKG Initial EKG Interpretation: Sinus Rhythm, No Acute Injury Pattern, - - ant-septal Q waves Prior: Unchanged - Medical Decision Making workup is unremarkable. I do not think he needs a CT of the head. his abrasion was cleansed and dressed. In reviewing his prior visits, he tended to have falls when intoxicated from alcohol, so I added an alcohol level. It was elevated at 124, 1.5 x the legal limit. He was allowed to rest in the ED overnight. 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 He is ambulatory in the hallway without difficulty. He is comfortable going home and having a social sciences lecturer consult after the weekend contact him. ED Disposition - Plan for ED Patient: Disposition: Home or Assisted Living Diagnosis: Fall, Facial abrasion, Alcohol intoxication Instructions: FALL, Mechanical Referrals: Rishi Pierce MD [STAFF PHYSICIAN] - 5-7 Days
[2018-12-26] MEDS: Ibuprofen 200 MG Tablet 400 MG PO (23:45)
--- NOTE | 2018-12-26 23:50 | RAD_ITS ---
HISTORY: cough, fall ADDITIONAL HISTORY: None provided. COMPARISON: 12/22/2018, 08/16/2018 and 08/01/2018 TECHNIQUE: Frontal and lateral chest radiographs. Number of images including paperwork: 2 FINDINGS: LUNGS AND PLEURA: No dense consolidation. Blunting of the left costophrenic angle appears similar, possibly trace pleural effusion and/or pleural scarring. CARDIAC SILHOUETTE: Stable. MEDIASTINUM AND BARTOLOME: Unchanged aortic calcification and tortuosity. UPPER ABDOMEN: Unremarkable. SKELETON AND SOFT TISSUES: No acute findings. Degenerative changes. Thoracic spine compression deformities appear similar. OTHER DEVICES AND HARDWARE: Sternal wires and surgical clips. RAD/Chest PA and Lateral IMPRESSION: No acute cardiopulmonary abnormality. Trace left pleural effusion versus pleural scarring. at 0014 Reported and signed by: Donna Bhagat MD Electronically Signed: Donna Bhagat MD at 0:14 EDT Tel , Service support ,
[2018-12-26 23:55] LABS: Mucous, Urine 0 SEEN /hpf (<or=2+); Red Blood Cells-Urine 0 SEEN /hpf (0-5); Squamous Epithelial Cells - UA 0 SEEN /hpf (0-5); White Blood Cells 0 SEEN /hpf (0-5)
[2018-12-26 23:56] LABS: Color, Urine Straw (Yellow); Glucose, Dipstick Normal (Normal); Ketone-Dipstick Negative (Negative); Leukocyte Esterase-Dipstick Negative /ul (Negative); Nitrite-Dipstick Negative (Negative); Occult Blood-Urine Negative /ul (Negative); Protein-Dipstick Negative (Negative); Specific Gravity, Urine 1.005 (1.002-1.030); Urine Bilirubin Dipstick Negative (Negative); Urine Clarity Clear (Clear); Urine Urobilinogen Normal (Normal)
[2018-12-26 23:56] LABS: Absolute Lymphocyte Count 1.65 X10^3/uL (0.83-4.51); Absolute Neutrophil Count 4.2 X10^3/uL (2.0-7.7); Basophil# 0.04 X10^3/uL; Basophil% 0.6 % (0-1); Eosinophil# 0.16 X10^3/uL; Eosinophils% 2.4 % (0-5); Hemoglobin 13.8 g/dL (13.0-16.5); Lymphocyte # 1.65 X10^3/ul (4.0); Lymphocyte % 24.6 % (19-41); Mean Corp Hgb Conc 34.5 g/dL (32-36); Mean Corpuscular Hgb 33.1 pg (27.0-32.0); Mean Corpuscular Volume 95.9 fL (80-94); Mean Platelet Vol. 10.5 fl (6.2-12.0); Monocyte# 0.62 X10^3/uL; Monocyte% 9.2 % (0-10); NRBC Flagged by Analyzer 0 % (0-5); Neutrophil # 4.22 X10^3/uL (2.7-7.7); Neutrophil % 62.8 % (47-70); Platelet Count 186 K/mm3 (150-450); RBC Distribution Width CV 13.1 % (11.6-14.6); RBC Distribution Width SD 46.4 fl (35.1-43.9); Red Blood Count 4.17 M/mm3 (4.6-6.2); White Blood Count 6.7 K/mm3 (4.4-11.0)
[2018-12-27 00:03] LABS: Bacteria RARE /hpf (None Seen)
[2018-12-27 00:15] LABS: Anion Gap 9 (5-15); BUN 6 mg/dL (7-18); BUN/Creat Ratio 7.4 RATIO (10-20); Calcium,Total 9.6 mg/dL (8.5-10.1); Chloride 105 mmol/L (98-107); Creatinine, Serum 0.81 mg/dL (0.70-1.30); EST Glomerular Filtration Rate 102 mL/min (>60); Est Glom Filt Rate - Afr Amer 124 mL/min (>60); Estimated Creatinine Clearance 93.88 ml/min; Glucose 137 mg/dL (74-106); Potassium 3.8 mmol/L (3.5-5.1); Sodium Level 139 mmol/L (136-145)
[2018-12-27 01:27] VITALS: BP 159/96; PULSE 94; RESP 18; O2SAT 91
[2018-12-27 03:00] VITALS: BP 181/99; PULSE 95; RESP 20; O2SAT 94
[2018-12-27 04:18] VITALS: BP 152/93; PULSE 94; RESP 21; O2SAT 95
[2018-12-27 06:00] VITALS: BP 149/78; BP 157/86; PULSE 100; PULSE 90; RESP 18; RESP 19; O2SAT 96; O2SAT 97
[2018-12-27 06:31] VITALS: RESP 16; O2SAT 97
--- NOTE | 2018-12-27 17:16 | CM.ED ---
Vet was treated and release from ER. Received referral for [facility]. [facility]. Jakob Rosario RN, CCM.
== END 2018-12-27 06:39 | disposition home or self-care (01) ==
PROVIDERS: Emergency Provider Emergency Medicine
DX: S00.81XA Abrasion of other part of head, initial encounter (principal); W19.XXXA Unspecified fall, initial encounter; Y93.01 Activity, walking, marching and hiking; F10.129 Alcohol abuse with intoxication, unspecified; I25.10 Atherosclerotic heart disease of native coronary artery without angina pectoris; E11.9 Type 2 diabetes mellitus without complications; Z87.891 Personal history of nicotine dependence; Z95.1 Presence of aortocoronary bypass graft; Z88.8 Allergy status to other drugs, medicaments and biological substances; Y90.6 Blood alcohol level of 120-199 mg/100 ml; F07.81 Postconcussional syndrome; Z79.899 Other long term (current) drug therapy
CPT/HCPCS: 71046; 80048; 80320; 81001; 82962; 84484; 85025; 93005; 99285; A4216; G0480

== ENCOUNTER 2018-12-29 11:53 | Emergency (ER) | payer MEDICARE, SELFPAY ==
[2018-12-29 11:53] VITALS: BP 129/87; PULSE 111; RESP 16; TEMP 36.9; O2SAT 94; BMI 35.2
[2018-12-29 12:25] VITALS: BP 127/74; PULSE 106; RESP 22; O2SAT 94
--- NOTE | 2018-12-29 12:56 | EKG12_ITS ---
Test Reason : DYSRHYTHMIA Blood Pressure : / mmHG Vent. Rate : 107 BPM Atrial Rate : 107 BPM P-R Int : 188 ms QRS Dur : 072 ms QT Int : 340 ms P-R-T Axes : 032 088 019 degrees QTc Int : 453 ms Sinus tachycardia Septal infarct , age undetermined Abnormal ECG Confirmed by ISAAK ORTEGA ([id number]), editor map IWONA DIA ([id number]) on 12/31/2018 3:24:51 PM Referred By: Confirmed By:ISAAK ORTEGA
[2018-12-29] MEDS: 0.9% Normal Saline 1,000 ML 1000 ML IV (13:19)
[2018-12-29 13:20] LABS: Absolute Lymphocyte Count 1.05 X10^3/uL (0.83-4.51); Absolute Neutrophil Count 7.1 X10^3/uL (2.0-7.7); Basophil# 0.05 X10^3/uL; Basophil% 0.5 % (0-1); Eosinophil# 0.17 X10^3/uL; Eosinophils% 1.9 % (0-5); Hematocrit 40.2 % (40-54); Hemoglobin 13.7 g/dL (13.0-16.5); Lymphocyte # 1.05 X10^3/ul (4.0); Lymphocyte % 11.5 % (19-41); Mean Corp Hgb Conc 34.1 g/dL (32-36); Mean Corpuscular Hgb 32.6 pg (27.0-32.0); Mean Corpuscular Volume 95.7 fL (80-94); Mean Platelet Vol. 10.7 fl (6.2-12.0); Monocyte# 0.71 X10^3/uL; Monocyte% 7.8 % (0-10); NRBC Flagged by Analyzer 0 % (0-5); Neutrophil # 7.06 X10^3/uL (2.7-7.7); Neutrophil % 77.6 % (47-70); Platelet Count 193 K/mm3 (150-450); RBC Distribution Width CV 13.4 % (11.6-14.6); RBC Distribution Width SD 47.2 fl (35.1-43.9); White Blood Count 9.1 K/mm3 (4.4-11.0)
[2018-12-29 13:33] LABS: AST(SGOT) 105 U/L (15-37); Alanine Aminotransfer ALT/SGPT 123 U/L (16-61); Albumin, Serum 3.3 g/dL (3.2-5.0); Alkaline Phosphatase 118 U/L (45-117); Anion Gap 10 (5-15); BUN 11 mg/dL (7-18); BUN/Creat Ratio 12.7 RATIO (10-20); Bilirubin, Direct 0.29 mg/dL (0.00-0.30); Calcium,Total 8.5 mg/dL (8.5-10.1); Chloride 102 mmol/L (98-107); Creatinine, Serum 0.87 mg/dL (0.70-1.30); EST Glomerular Filtration Rate 94 mL/min (>60); Est Glom Filt Rate - Afr Amer 114 mL/min (>60); Globulin 3.4 g/dL (2.2-4.2); Glucose 126 mg/dL (74-106); Lipase 100 U/L (73-393); Potassium 4.2 mmol/L (3.5-5.1); Protein, Total 6.7 g/dL (6.4-8.2); Sodium Level 136 mmol/L (136-145)
[2018-12-29] MEDS: 0.9% Normal Saline 1,000 ML 125 ML IV (14:09)
--- NOTE | 2018-12-29 15:10 | CM.ED ---
Addendum entered by Ermelinda Shelton 12/29/18 15:56: Referral also made to APS as squad reporting that patient is not able to meet own needs and that APS has been consulted already on the case. This social worker assistant updated Divya Burrows at [facility] on patient case. This social worker assistant also explored options of assisted living/placement with patient, patient not sure about these options at this time. Nursing staff did have patient up in the emergency room and patient was able to walk with a walker per nursing staff. Patient encouraged to use a walker at home. 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 Informant: Dr. Jesus Met with patient in room. Patient stating to live alone in an a 1-story small apartment. Patient stating to have a walker and a cane and to primarily use a cane to ambulate within the home. Patient stating to not use a walker due to the apartment being to small. Patient stating to fall frequently within the home. Patient denies any diagnose mental health history but stating probably have depression. Patient denies any anti-depressants. Patient stating to have limited support within the community and to currently not utilize any community resources. This social worker assistant completed chart review and noted that patient has a home health referral that was made this weekend. Patient stating to have not been aware of the home health referral but to be agreeable to the referral stating I need help at home. This social worker assistant inquiring about patient financial status. Patient stating to collect social security disability and that is all. Patient stating still drive, but recently to have been unable to get out of the home due to being weak. Patient stating to order food in as needed and a box of pasta goes a long way. Patient stating to not be able to take care of self at home, most of the time. Patient appeared clean well kept, no odder was noted and patient presenting as jovial with this social worker assistant. Patient laughing often and engaged in assessment. This social worker assistant exploring other options within the home/community for patient. Patient agreeable to [facility]SPORT, CCN, and Meals on Wheels referral. Patient plans to discharge to home alone from the emergency department. Telephone call to [facility] Antoinette AMBRIZ. Antoinette confirming to have referral and plans to follow up with patient. This social worker assistant also making hand off communication go [place], home health social worker assistant. Referral made to RAMIRO, MICHELLE, and [facility] [employer] [facility]. Natalee SAAVEDRA, CARISA
--- NOTE | 2018-12-29 15:30 | ED.VISSUMM ---
- ER Visit Summary Date of Service: 12/29/18 Chief Complaint: Diarrhea History of Present Illness: The patient is a 63 M who presents the emergency department with diarrhea. He states that this is been ongoing for weeks. He is been seen in the emerge department several times and has never mentioned this diarrhea. He states the diarrhea is to the point he cannot keep himself clean to the point where he cannot cook for himself. He states that he is asking for help in caring for himself. Asking how often the diarrhea is coming states a few minutes. Antibiotics. No fevers. No blood in stool. Has had several falls. Has not seen a primary care physician over a year. States that he had a brain injury several years ago and that is when he lost his and since then he has deteriorated. EMS states that the house is cluttered but not filthy. Physical Examination: Afebrile vital signs triage heart rate of 111 he is about 100 and my examination. Gen: Well-nourished well-developed He is not disheveled. He does not smell of urine or stool. His close are clean. Head: Normocephalic atraumatic Eyes: Perrl EOMI ENT: TMs clear no rhinorrhea moist mucous membranes Neck: Supple no lymphadenopathy no JVD nontender CVS: Regular rate tachycardic rhythm no murmurs normal S1-S2 Respiratory: No distress clear to auscultation bilaterally chest nontender Abdomen: Soft nontender nondistended normal bowel sounds no masses Back: Nontender Extremity: Nontender no edema Skin: Normal color no rash various bruises on his extremities Neuro: alert orientated ?3 CN II-XII intact normal strength sensation reflexes he is able to walk with a walker quite well. Psych: Normal affect normal mood Test Results: Basic labs were normal. Emergency Department Course and Treatment: Was eventually after several hours able to produce a stool specimen and this was sent for enteric pathogens. At this point I do not think the patient requires admission or placement to a nursing facility. I had social work see him who is going to give him several referrals to the community. He is very happy about this. He has been sitting up in bed conversing with staff and is rather jovial. Impression: 1. Diarrhea This note was generated with [employer] dictation software. It may contain incorrect words, spelling, and punctuation that were not noted in review of the chart prior to signing ED Disposition - Plan for ED Patient: Disposition: Home or Assisted Living Instructions: DIARRHEA, Unk Cause (Adult) Report Pendg Referrals: Ronaldo Nettles MD [STAFF PHYSICIAN] - (Call to arrange primary care follow-up)
[2018-12-29 15:48] VITALS: BP 115/83; PULSE 99; RESP 17; O2SAT 95
--- NOTE | 2018-12-29 15:49 | ED.RN ---
IV DC'ED, CATHETER INTACT, SMALL GAUZE DRESSING PLACED. DISCHARGE INSTRUCTIONS GIVEN TO AND REVIEWED WITH PATIENT, PATIENT DENIES QUESTIONS OR CONCERNS AND VOICES UNDERSTANDING OF DISCHARGE INSTRUCTIONS. CINDY REESE CALLED TO TRANSPORT PATIENT HOME, PATIENT AND TAXI AWARE THAT PATIENT WILL BE PAYING [facility]. PT TO WAITING ROOM VIA WHEELCHAIR.
== END 2018-12-29 15:51 | disposition home or self-care (01) ==
PROVIDERS: Emergency Provider Emergency Medicine
DX: R19.7 Diarrhea, unspecified (principal); E11.9 Type 2 diabetes mellitus without complications; I10 Essential (primary) hypertension; E66.9 Obesity, unspecified
CPT/HCPCS: 80048; 80076; 83690; 85025; 87506; 93005; 96360; 96361; 99284

== ENCOUNTER 2019-01-27 12:45 | Emergency (ER) | payer MEDICARE, SELFPAY ==
[2019-01-27 12:45] VITALS: BP 95/59; PULSE 107; RESP 16; TEMP 36.7; O2SAT 95; BMI 35.9
--- NOTE | 2019-01-27 13:00 | EKG12_ITS ---
Test Reason : FALL Blood Pressure : / mmHG Vent. Rate : 101 BPM Atrial Rate : 101 BPM P-R Int : 214 ms QRS Dur : 082 ms QT Int : 350 ms P-R-T Axes : 044 078 029 degrees QTc Int : 453 ms Sinus tachycardia with 1st degree A-V block Otherwise normal ECG Confirmed by ISAAK ORTEGA ([id number]), commissioning editor VALERIA CANTU ([id number]) on 01/28/2019 1:39:13 PM Referred By: SENG Confirmed By:ISAAK ORTEGA
--- NOTE | 2019-01-27 13:00 | RAD_ITS ---
STUDY: X-RAY CHEST REASON FOR EXAM: Male, 63 years old. Hypotension. Fall. TECHNIQUE: Single AP portable view of the chest. COMPARISON: Comparison is made with prior study dated December 26, 2018. FINDINGS: Mild residual increased markings at the left lung base with blunting the left costophrenic angle. This most likely represents mild atelectasis superimposed on scarring. Sternal cerclage wires and vascular clips are present from a prior sternotomy and coronary artery bypass graft procedure (CABG). Normal mediastinum and gene. Normal visualized pulmonary arteries. There is atherosclerotic calcification of the aortic arch with tortuosity. There are diffuse degenerative changes of the visualized thoracic spine. Normal visualized ribs, clavicles, and shoulders. There is no demonstrated abnormality of the visualized soft tissue structures of the upper abdomen. RAD/Chest 1 View (Portable) IMPRESSION: Mild residual pleural-parenchymal changes at the left lung base suggestive of scarring. Electronically Signed: Kenneth Givens, at 13:20 EDT , Service support ,
--- NOTE | 2019-01-27 13:03 | ED.DCSUM_ITS ---
- ER Visit Summary Date of Service: 01/27/19 Chief Complaint: Found down at home post fall History of Present Illness: The patient is a 63 M fall and alcohol use. Reportedly today the patient said he had been drinking he was in his kitchen and he fell we went to catch himself he pulled the microwave over on himself. A speech therapist was coming to his house for therapy and she found him down with the microwave on top of him. He denies any injuries. He denies any LOC. He denies any blood thinners. Said he has not been recently ill. Denies any headache, chest pain, shortness of breath or abdominal pain. No vomiting, diarrhea or melena. No fever. Physical Examination: Older male vital signs initial blood pressure 95/59 temperature 91. Pulse is 95% on room air no signs of hypoxia. Patient no distress. Sitting up in bed. HEENT exam atraumatic. Pupils round react to light. No signs of trauma to his face or scalp. Nontender. C-spine nontender. Trachea midline. Lungs clear to auscultation bilaterally. Heart tachycardic rate about 105 no murmur. Chest wall nontender. No crepitance or subcu air. No bony deformities of his ribs. Abdomen soft nontender normal bowel sounds no peritoneal signs. No bruising. Pelvic girdle intact. Patient is moving all 4 extremities. They are nontender. He has normal tourist guide strength. Normal dorsi plantar flexion. Normal range of motion. Neurologically is awake and alert with no focal motor deficits. Test Results: CBC White count 7 hemoglobin 12.8 which is his baseline. Electrolytes unremarkable with normal gap of 9 creatinine of 1 he is diabetic his blood sugar is elevated 312. Urinalysis normal. Lactic acid 4.0. Alcohol level 153 consistent with acute intoxication. EKG shows a sinus tachycardia rate of 101 with a first-degree AV block. No signs of AR or ischemia. Chest x- ray one view shows prior sternotomy but no acute abnormalities. Chronic changes. Read both by myself and the radiologist. No infiltrate. Emergency Department Course and Treatment: Male fall at home is also hypotensive. Repeat exam the patient is doing well at 15: 13 p.m. Discussed all test results with the patient. Nurse repeated his blood pressure is now currently normotensive with systolic blood pressure around 115. He ambulated without any difficulty. Treatment Plan: Discharge to home. Alcohol counseling was strongly encouraged. Follow-up. Disposition: Discharge Impression: Acute fall at home Acute transient hypotension Acute alcohol intoxication This note was generated with [employer] dictation software. It may contain incorrect words, spelling, and punctuation that were not noted in review of the chart prior to signing ED Disposition - Plan for ED Patient: Referrals: Care Physician,No Primary [Primary Care Provider] -
[2019-01-27] MEDS: 0.9% Normal Saline 1,000 ML 1000 ML IV (13:05)
[2019-01-27 13:29] LABS: Anion Gap 9 (5-15); BUN 7 mg/dL (7-18); BUN/Creat Ratio 6.9 RATIO (10-20); Calcium,Total 8.4 mg/dL (8.5-10.1); Chloride 105 mmol/L (98-107); Creatinine, Serum 1.02 mg/dL (0.70-1.30); EST Glomerular Filtration Rate 78 mL/min (>60); Est Glom Filt Rate - Afr Amer 94 mL/min (>60); Estimated Creatinine Clearance 74.55 ml/min; Glucose 312 mg/dL (74-106); Potassium 4.7 mmol/L (3.5-5.1); Sodium Level 137 mmol/L (136-145)
[2019-01-27 13:32] LABS: Absolute Lymphocyte Count 1.89 X10^3/uL (0.83-4.51); Absolute Neutrophil Count 4.7 X10^3/uL (2.0-7.7); Basophil# 0.04 X10^3/uL; Basophil% 0.5 % (0-1); Eosinophil# 0.21 X10^3/uL; Eosinophils% 2.7 % (0-5); Hematocrit 37.4 % (40-54); Hemoglobin 12.8 g/dL (13.0-16.5); Lymphocyte # 1.89 X10^3/ul (4.0); Lymphocyte % 24.4 % (19-41); Mean Corp Hgb Conc 34.2 g/dL (32-36); Mean Corpuscular Hgb 33.1 pg (27.0-32.0); Mean Corpuscular Volume 96.6 fL (80-94); Mean Platelet Vol. 11.1 fl (6.2-12.0); Monocyte# 0.84 X10^3/uL; Monocyte% 10.8 % (0-10); NRBC Flagged by Analyzer 0 % (0-5); Neutrophil # 4.74 X10^3/uL (2.7-7.7); Neutrophil % 61.2 % (47-70); Platelet Count 200 K/mm3 (150-450); RBC Distribution Width CV 12.3 % (11.6-14.6); Red Blood Count 3.87 M/mm3 (4.6-6.2); White Blood Count 7.8 K/mm3 (4.4-11.0)
--- NOTE | 2019-01-27 13:43 | ED.RN ---
LACTIC 4.[address] THE LAB DR ELLSWORTH AWARE
[2019-01-27 13:52] VITALS: BP 121/70; PULSE 104; RESP 18
[2019-01-27 14:28] LABS: Mucous, Urine 0 SEEN /hpf (<or=2+); Red Blood Cells-Urine 0 SEEN /hpf (0-5); Squamous Epithelial Cells - UA 0 SEEN /hpf (0-5); White Blood Cells 0 SEEN /hpf (0-5)
[2019-01-27 14:29] VITALS: BP 116/75; RESP 18
[2019-01-27 14:30] LABS: Color, Urine Yellow (Yellow); Glucose, Dipstick 250 mg/dl (Normal); Ketone-Dipstick Negative (Negative); Leukocyte Esterase-Dipstick Negative /ul (Negative); Nitrite-Dipstick Negative (Negative); Occult Blood-Urine Negative /ul (Negative); Protein-Dipstick Negative (Negative); Urine Bilirubin Dipstick Negative (Negative); Urine Clarity Clear (Clear); Urine Urobilinogen Normal (Normal)
[2019-01-27 14:43] LABS: Bacteria RARE /hpf (None Seen)
--- NOTE | 2019-01-27 15:15 | ED.DEP ---
ED Disposition - Plan for ED Patient: Disposition: Home or Assisted Living Instructions: Alcohol Intoxication Referrals: Ricky Albright MD [NON-STAFF] - As soon as possible Additional Instructions: Consider alcohol counseling. Follow-up with [facility] which is a detox program. # [phone] Follow-up with a local primary care physician. Return if worse.
[2019-01-27 15:16] VITALS: BP 109/64; PULSE 103; RESP 18; O2SAT 93
[2019-01-27 15:36] VITALS: BP 109/64; PULSE 103; RESP 18
[2019-01-27 17:12] LABS: Reflex Lactate? Y
== END 2019-01-27 15:37 | disposition home or self-care (01) ==
PROVIDERS: Emergency Provider Emergency Medicine
DX: F10.129 Alcohol abuse with intoxication, unspecified (principal); I95.9 Hypotension, unspecified; W18.30XA Fall on same level, unspecified, initial encounter; Y93.9 Activity, unspecified; Y92.000 Kitchen of unspecified non-institutional (private) residence as the place of occurrence of the external cause; Y99.9 Unspecified external cause status; I44.0 Atrioventricular block, first degree; Y90.6 Blood alcohol level of 120-199 mg/100 ml
CPT/HCPCS: 71045; 80048; 80320; 81001; 83605; 85025; 93005; 96360; 99285; J7030; G0480

== ENCOUNTER 2019-02-10 03:17 | Emergency (ER) | payer MEDICARE, SELFPAY ==
[2019-02-10 03:18] VITALS: BP 131/86; PULSE 110; RESP 18; TEMP 36.9; O2SAT 94; BMI 31.1
--- NOTE | 2019-02-10 03:23 | RAD_ITS ---
STUDY: X-RAY CHEST REASON FOR EXAM: Male, 63 years old. Cough TECHNIQUE: Single AP portable view of the chest. COMPARISON: 01/27/2019 FINDINGS: Mild prominence of interstitial markings at the lung bases, unchanged. No confluent airspace opacity. No pleural effusion or pneumothorax. Normal size heart. Median sternotomy wires and coronary artery bypass graft clips noted. Normal mediastinum and gene. Normal visualized pulmonary arteries. Normal visualized aortic arch and descending thoracic aorta. Normal visualized thoracic spine. Normal visualized ribs, clavicles, and shoulders. There is no demonstrated abnormality of the visualized soft tissue structures of the upper abdomen. RAD/Chest 1 View (Portable) IMPRESSION: Mild chronic bibasilar interstitial change with no evidence of acute cardiopulmonary. Electronically Signed: Rivas Parker MD at 4:18 EDT Tel , Service support ,
[2019-02-10] MEDS: Mag Hydrox/Al Hydrox/Simeth 30 ML UDC PO (03:25)
[2019-02-10] MEDS: guaiFENesin 10 ML UDC (200MG/10ML) PO (03:56)
--- NOTE | 2019-02-10 04:26 | ED.DCSUM_ITS ---
- ER Visit Summary Date of Service: 02/10/19 Chief Complaint: Cough History of Present Illness: The patient is a 63 M with a cough for 1 hour. It is a dry cough. He feels that it originates in his lungs. Nothing seemed to bring it on. He denies aspirating or choking. Denies any postnasal drip, acid reflux, or history of asthma. Denies any sick contacts or fever. Denies travel or surgery. Denies exposure to chemicals. Denies PIPE inhibitor use. Denies associated symptoms like fever, chest pain, leg swelling, or any other symptoms. Physical Examination: Afebrile and vital signs unremarkable except for heart rate of 110. Patient is recumbent, in no acute distress. He has a week, dry, intermittent cough. HEENT exam shows oral pharyngeal cobblestoning and mucus. Otherwise unremarkable. Lungs diminished in all cordova but clear. No wheezing. Heart regular rate and rhythm on my exam. Extremities unremarkable. Skin unremarkable. Test Results: Chest x-ray showed no acute findings. Emergency Department Course and Treatment: Patient presents with a dry cough for 1 hour. This seemed to be unprovoked. He does not have any other concerning historical features or physical exam findings. It seems like a dry, tickling, irritant cough. Since he was resting, I thought this might be acid reflux. He had no improvement with a GI cocktail. The patient felt that the cough was originating in his lungs. I did check a chest x-ray. This was unremarkable. No signs of foreign bodies. Nothing to suggest heart failure. This does not appear to be consistent with PE. His vitals were reassuring. He was slightly tachycardic at triage, but looking back over most of his vitals for years, he has a heart rate in the 90s to 100s. I tried Robitussin with no improvement. Will try Tessalon Perles. Patient was advised to also use hot tea with honey and [id number] remedies. Monitor for new or worsening symptoms which might illuminate the diagnosis. He should check in with his family doctor. Call tomorrow. Return right away for any new or worsening issues. Treatment Plan: Tessalon Perles, [id number] and home remedies Disposition: Discharge Impression: 1. Cough This note was generated with [employer] software. It may contain incorrect words, spelling, and punctuation that were not noted in review of the chart prior to signing ED Disposition - Plan for ED Patient: Referrals: Tushar Martinez MD [Primary Care Provider] -
[2019-02-10] MEDS: Benzonatate 100 MG Capsule PO (04:30)
[2019-02-10 04:31] VITALS: BP 126/71; PULSE 107; RESP 24; O2SAT 97
--- NOTE | 2019-02-10 04:32 | ED.DEP ---
ED Disposition - Plan for ED Patient: Instructions: Tessalon Perles Prescriptions: Benzonatate [Tessalon Perle] 200 mg PO TID PRN PRN #20 cap PRN Reason: Cough Prescription Printed Referrals: Tushar Martinez MD [Primary Care Provider] -
[2019-02-10 04:37] VITALS: BP 122/77; PULSE 110; RESP 18; O2SAT 94
== END 2019-02-10 05:15 | disposition home or self-care (01) ==
LOC: ED 03:38
PROVIDERS: Emergency Provider Emergency Medicine; Family Provider Family Medicine; PCP Family Medicine
DX: R05 Cough (principal); E11.9 Type 2 diabetes mellitus without complications; I25.10 Atherosclerotic heart disease of native coronary artery without angina pectoris; Z87.891 Personal history of nicotine dependence
CPT/HCPCS: 71045; 99285

== ENCOUNTER 2019-02-24 03:41 | Emergency (ER) | payer MEDICARE, SELFPAY ==
[2019-02-24 03:42] VITALS: BP 142/81; PULSE 112; RESP 18; TEMP 37; O2SAT 94; BMI 33.5
--- NOTE | 2019-02-24 03:43 | RAD_ITS ---
STUDY: X-RAY CHEST REASON FOR EXAM: Male, 63 years old. Chest pain status post fall TECHNIQUE: Single AP portable view of the chest. COMPARISON: 02/10/2019 FINDINGS: The lungs are clear and expanded. There is a tiny medially pneumothorax with right. Borderline cardiomegaly, unchanged. Median sternotomy wires and coronary artery bypass graft clips noted. Normal mediastinum and gene. Normal visualized pulmonary arteries. There is atherosclerotic calcification of the aortic arch . There are diffuse degenerative changes of the visualized thoracic spine. Normal visualized ribs, clavicles, and shoulders. There is no demonstrated abnormality of the visualized soft tissue structures of the upper abdomen. RAD/Chest 1 View (Portable) IMPRESSION: Tiny medial apical pneumothorax Electronically Signed: Rivas Parker MD at 4:19 EDT Tel , Service support ,
--- NOTE | 2019-02-24 03:48 | ED.DCSUM_ITS ---
History of Present Illness Chief Complaint: Fall Informant: Patient Limited by: Intoxicated Onset: Today Context: Gradual Onset Timing: Intermittent Current Severity: Moderate Maximum Severity: Moderate Narrative: The patient presents to the emergency department by EMS. Patient admits to drinking tonight. Apparently, this is the third time EMS was called to his house for fall. Patient has underlying gait dysfunction. He is supposed to ambulate with a walker. He states he is not using it tonight. He states that he lost his balance and fell to the ground. He struck his chest. He did not strike his head. He denies other injury. He is otherwise been in his normal state of health. Prior similar symptoms: Yes Recent Illness/Hospitalization: No Past Medical History - Allergies and Home Meds Allergies/Adverse Reactions: Allergies Icxxcch-Sps-Eog Reductase Inhibitor Allergy (Verified 02/24/19 03:44) Swelling Primary Care Physician: Tushar Martinez MD [Primary Care Provider] - Prior records reviewed: Yes Past Medical History: - Surgical History: coronary bypass surgery Smoking Status: Never smoker - Family History Paternal Family History: Reports: Heart Disease Review of Systems General: Denies: Chills, Fever, Sweats Eyes: Denies: Visual changes - bilaterally, Diplopia ENT: Denies: Rhinorrhea, Sore throat Cardiovascular: Denies: Chest pain, Palpitations Respiratory: Denies: Dyspnea, Cough, Dyspnea on exertion Gastrointestinal: Denies: Abdominal pain, Nausea, Vomiting, Diarrhea, Melena, Hematochezia Genitourinary: Denies: Dysuria, Hematuria, Frequency Musculoskeletal: Denies: Back pain, Extremity Pain Skin: Denies: Rash, Wounds Neurological: Denies: Headache, Weakness, Numbness Physical Exam Vital Signs/Narrative: Vital Signs Temp Pulse Resp BP Pulse Ox 02/24/19 03:42 98.6 F 112 H 18 142/81 H 94 Inital Vital Signs reviewed: Yes General: Well nourished, Well developed, No Acute Distress Head: Normocephalic, Atraumatic Eyes: Perrl, EOMI ENT: Moist mucous membranes, No rhinorrhea Neck: Supple, Nontender Cardiovascular: Regular rate, Regular rhythm, No murmurs Respiratory: No distress, CTA bilaterally, Chest tenderness - Mild tenderness over the right anterior chest. No contusion. No step-off. Abdomen: Soft, Nontender, Nondistended, Normal bowel sounds Back: Nontender, Normal Inspection Extremities: Nontender, No edema Skin: Normal color, No rash Neurological: Alert, Oriented x3, Cranial nerves II-XII grossly intact, Normal Strength, Normal Sensation Psychological: Normal affect, Normal Mood Diagnostic/Tx/Re-eval Chest X-Ray - ED: 1 View, Read by ED Physician, Read by Radiologist, Normal, Heart, Mediastinum, Bony Structures, - - Questionable right apical pneumothorax Clinical Impression(s) from Imaging Studies Chest X-Ray 02/24/19 03:43 IMPRESSION: Tiny medial apical pneumothorax Electronically Signed: Rivas Parker MD at 4:19 EDT Tel , Service support , Brain CT 02/24/19 04:23 IMPRESSION: Chronic involutional changes of the brain. There is no acute intracranial pathology. There is no significant interval change. Electronically Signed: Kimmy Sabillon MD at 5:05 EDT , Service support , Cervical Spine CT 02/24/19 04:23 IMPRESSION: Abnormal Lab Results 02/24/19 02/24/19 02/24/19 03:50 03:50 03:50 WBC 13.5 H RBC 4.38 L Hgb 14.1 Hct 41.0 MCV 93.6 MCH 32.2 H MCHC 34.4 RDW Std Deviation 43.6 RDW Coeff of Fred 12.7 Plt Count 295 MPV 10.7 Immature Gran % (Auto) 0.400 Neut % (Auto) 72.7 H Lymph % (Auto) 18.6 L [place] % (Auto) 7.0 Eos % (Auto) 0.7 Baso % (Auto) 0.6 Absolute Neuts (auto) 9.8 H Absolute Lymphs (auto) 2.51 Nucleated RBC % 0 Sodium 141 Potassium 3.9 Chloride 107 Carbon Dioxide 23.0 Anion Gap 11 BUN 10 Creatinine 0.86 Estim Creat Clear Calc 88.42 Est GFR (MDRD) Af Amer 114 Est GFR (MDRD) Non-Af 94 BUN/Creatinine Ratio 11.6 Glucose 150 H Calcium 8.7 Ethyl Alcohol 157.0 Multilevel degenerative changes, as described above. There is no significant interval change. There is no acute displaced fracture or dislocation. If there is high clinical concern for ischemic infarction or other acute or evolving intracranial process, consider further evaluation with brain MRI, presuming the patient is an appropriate candidate for that modality. Electronically Signed: Kimmy Sabillon MD at 5:12 EDT , Service support , Clinical Impression(s) from Imaging Studies Chest X-Ray 02/24/19 03:43 IMPRESSION: Tiny medial apical pneumothorax Electronically Signed: Rivas Parker MD at 4:19 EDT Tel , Service support , Brain CT 02/24/19 04:23 IMPRESSION: Chronic involutional changes of the brain. There is no acute intracranial pathology. There is no significant interval change. Electronically Signed: Kimmy Sabillon MD at 5:05 EDT , Service support , Cervical Spine CT 02/24/19 04:23 IMPRESSION: Multilevel degenerative changes, as described above. There is no significant interval change. There is no acute displaced fracture or dislocation. If there is high clinical concern for ischemic infarction or other acute or evolving intracranial process, consider further evaluation with brain MRI, presuming the patient is an appropriate candidate for that modality. Electronically Signed: Kimmy Sabillon MD at 5:12 EDT , Service support , Chest CT 02/24/19 04:23 IMPRESSION: Nondisplaced fractures of the right anterior hemithorax as outlined above. There is no demonstrated pneumothorax, contusion or effusion. Changes involving the T12 vertebral body was present on previous chest x-ray 12/26/2018. This may be due to subacute to chronic compression injury, however an inflammatory processes is not entirely excluded but appears less likely. No retroperitoneal soft tissue prominence, hematoma or destruction of adjacent joint spaces. Stable pleural-based nodular density left apex and chronic interstitial changes in the left base. Extensive coronary artery disease, hepatic steatosis, renal cysts felt to be nonacute findings. Electronically Signed: Kimmy Sabillon MD at 5:27 EDT , Service support , - Medical Decision Making Patient presents after multiple falls. He does have chronic gait instability and history of alcohol abuse. He is complaining of some tenderness over his chest after the fall. Chest x-ray was obtained. There was concern for small apical pneumothorax. Given his alcohol abuse and falls, patient was sent for CT imaging of his head, C-spine, and chest. Head and C-spine were unremarkable. CT of the chest shows questionable fracture of unknown age of ribs 3 through 9. Does not go all the way through the cortex. There is no pneumothorax, pulmonary contusion, or other process. Screening labs were obtained and were unremarkable. The patient does have an alcohol level of 0.16. My suspicion is that this is more of a chronic gait instability that is exacerbated by his alcohol abuse. Patient is resting comfortably. He was able to ambulate to the bathroom without any ataxia. At this point, I do feel it is safe for discharge. He already has resources at home. He has no interest in detox at this time. Impression 1. Alcohol abuse and dependence 2. Gait instability ED Disposition - Plan for ED Patient: Instructions: FALL, Mechanical, FRACTURE, Rib Referrals: Tushar Martinez MD [Primary Care Provider] -
[2019-02-24] MEDS: 0.9% Normal Saline 1,000 ML 1000 ML IV (03:54)
[2019-02-24 04:13] LABS: Absolute Lymphocyte Count 2.51 X10^3/uL (0.83-4.51); Absolute Neutrophil Count 9.8 X10^3/uL (2.0-7.7); Basophil# 0.08 X10^3/uL; Basophil% 0.6 % (0-1); Eosinophil# 0.09 X10^3/uL; Eosinophils% 0.7 % (0-5); Hemoglobin 14.1 g/dL (13.0-16.5); Lymphocyte # 2.51 X10^3/ul (4.0); Lymphocyte % 18.6 % (19-41); Mean Corp Hgb Conc 34.4 g/dL (32-36); Mean Corpuscular Hgb 32.2 pg (27.0-32.0); Mean Corpuscular Volume 93.6 fL (80-94); Mean Platelet Vol. 10.7 fl (6.2-12.0); Monocyte# 0.94 X10^3/uL; NRBC Flagged by Analyzer 0 % (0-5); Neutrophil # 9.78 X10^3/uL (2.7-7.7); Neutrophil % 72.7 % (47-70); Platelet Count 295 K/mm3 (150-450); RBC Distribution Width CV 12.7 % (11.6-14.6); RBC Distribution Width SD 43.6 fl (35.1-43.9); Red Blood Count 4.38 M/mm3 (4.6-6.2); White Blood Count 13.5 K/mm3 (4.4-11.0)
[2019-02-24 04:21] LABS: Anion Gap 11 (5-15); BUN 10 mg/dL (7-18); BUN/Creat Ratio 11.6 RATIO (10-20); Calcium,Total 8.7 mg/dL (8.5-10.1); Chloride 107 mmol/L (98-107); Creatinine, Serum 0.86 mg/dL (0.70-1.30); EST Glomerular Filtration Rate 94 mL/min (>60); Est Glom Filt Rate - Afr Amer 114 mL/min (>60); Estimated Creatinine Clearance 88.42 ml/min; Glucose 150 mg/dL (74-106); Potassium 3.9 mmol/L (3.5-5.1); Sodium Level 141 mmol/L (136-145)
--- NOTE | 2019-02-24 04:23 | CT_ITS ---
STUDY: CT BRAIN WITHOUT CONTRAST REASON FOR EXAM: Male, 63 years old. Anterior right-sided chest pain from fall, EtOH, several falls. History of hypertension, [place], appendectomy, diabetes RADIATION DOSAGE (If Supplied By Facility): CTDIvol = ( 44.99 ) mGy, DLP = ( 931.09 ) mGycm TECHNIQUE: Transaxial CT imaging of the brain was performed without administration of intravenous contrast material. Individualized dose optimization techniques were used for this CT. COMPARISON: CT brain noncontrast 08/01/2018. 08/16/2018. FINDINGS: Normal soft tissue structures. Normal calvarium. There is mild cerebral atrophy with widening of the extra-axial spaces and ventricular dilatation. There are areas of decreased attenuation within the white matter tracts of the supratentorial brain, consistent with microvascular disease changes. Normal basal ganglia and thalami. Normal brainstem. Normal cerebellum. There is no intracranial hemorrhage. There are no findings of an acute ischemic infarction. Normal visualized paranasal sinuses. The bilateral mastoid air cells are clear. CT/Brain/Head without Contrast IMPRESSION: Chronic involutional changes of the brain. There is no acute intracranial pathology. There is no significant interval change. Electronically Signed: Kimmy Sabillon MD at 5:05 EDT , Service support ,
--- NOTE | 2019-02-24 04:23 | CT_ITS ---
STUDY: CT CHEST WITH CONTRAST REASON FOR EXAM: Male, 63 years old. Anterior right-sided chest pain from fall, EtOH, several falls. History of hypertension, [place], appendectomy, diabetes RADIATION DOSAGE (If Supplied By Facility): CTDIvol = ( 21.00 ) mGy, DLP = ( 695.41 ) mGycm TECHNIQUE: Transaxial imaging was performed following intravenous administration of IV 100mL Isovue-300 . Multiplanar coronal and sagittal images were reformatted. Individualized dose optimization techniques were used for this CT. COMPARISON: CT chest 10/09/17. Chest x-ray 12/26/2018 FINDINGS: There is no demonstrated pneumothorax, contusion or effusion. Prior stable median sternotomy wires and CABG clips. There is minimal cortical irregularity along the anterior right third through ninth rib not present on previous exam. Stable pleural-based nodular density posterior left apex. Stable peripheral interstitial opacification along the lingula and left lower lobe with stable linear changes extending to the pleura likely scarring. There is no demonstrated pleural abnormality. Normal heart and pericardium. There are calcifications of the coronary arteries. Presumed coronary artery stents. Normal mediastinum. Normal hilar regions. Faint low-attenuation with pockets of air in the trachea likely mucus. Normal enhanced pulmonary arteries. Normal aorta arch and descending thoracic aorta. There are multi-level degenerative changes of the thoracic spine. Interval loss of indistinct sclerotic T12 vertebral body with areas of lucency, productive anterior changes, without retropulsion of cortex. The adjacent cortex of endplates appear intact. There is kyphosis. Similar appearance seen on lateral chest view 12/26/2018. Bilateral upper renal pole cysts and hepatic steatosis. CT/Chest WITH Contrast IMPRESSION: Nondisplaced fractures of the right anterior hemithorax as outlined above. There is no demonstrated pneumothorax, contusion or effusion. Changes involving the T12 vertebral body was present on previous chest x-ray 12/26/2018. This may be due to subacute to chronic compression injury, however an inflammatory processes is not entirely excluded but appears less likely. No retroperitoneal soft tissue prominence, hematoma or destruction of adjacent joint spaces. Stable pleural-based nodular density left apex and chronic interstitial changes in the left base. Extensive coronary artery disease, hepatic steatosis, renal cysts felt to be nonacute findings. Electronically Signed: Kimmy Sabillon MD at 5:27 EDT , Service support ,
--- NOTE | 2019-02-24 04:23 | CT_ITS ---
STUDY: CT CERVICAL SPINE WITHOUT CONTRAST REASON FOR EXAM: Male, 63 years old. Anterior right-sided chest pain from fall, EtOH, several falls. History of hypertension, [place], appendectomy, diabetes RADIATION DOSAGE (If Supplied By Facility): CTDIvol = ( 29.06 ) mGy, DLP = ( 680.54 ) mGycm TECHNIQUE: High resolution transaxial imaging was performed without contrast material. Sagittal and coronal images were reconstructed. Individualized dose optimization techniques were used for this CT. COMPARISON: CT cervical spine 10/09/2017. FINDINGS: Normal craniovertebral junction. There are degenerative changes of the anterior atlantoaxial articulation. Normal odontoid process. Normal cervical lordosis. Normal vertebral bodies and posterior osseous elements. There is sclerosis of endplates and disc space narrowing throughout. C4-6: There is sclerosis of the endplate, loss of the disk height, posterior disc osteophyte complex, arthropathy of the bilateral uncovertebral joints. There is mild narrowing of the neuroforamina. Otherwise normal central canal and intervertebral neuroforamina. There is no demonstrated pneumothorax. There is atherosclerosis of the carotid bulbs. CT/Spine Cervical without Contras IMPRESSION: Multilevel degenerative changes, as described above. There is no significant interval change. There is no acute displaced fracture or dislocation. If there is high clinical concern for ischemic infarction or other acute or evolving intracranial process, consider further evaluation with brain MRI, presuming the patient is an appropriate candidate for that modality. Electronically Signed: Kimmy Sabillon MD at 5:12 EDT , Service support ,
[2019-02-24 05:54] VITALS: BP 156/89; PULSE 102; RESP 16; O2SAT 95
== END 2019-02-24 05:55 | disposition home or self-care (01) ==
PROVIDERS: Emergency Provider Emergency Medicine; Family Provider Family Medicine; PCP Family Medicine
DX: F10.20 Alcohol dependence, uncomplicated (principal); W01.0XXA Fall on same level from slipping, tripping and stumbling without subsequent striking against object, initial encounter; R26.9 Unspecified abnormalities of gait and mobility; E11.9 Type 2 diabetes mellitus without complications; I10 Essential (primary) hypertension; I25.10 Atherosclerotic heart disease of native coronary artery without angina pectoris; K76.0 Fatty (change of) liver, not elsewhere classified; N28.1 Cyst of kidney, acquired; Z82.49 Family history of ischemic heart disease and other diseases of the circulatory system; Z88.8 Allergy status to other drugs, medicaments and biological substances; Y90.0 Blood alcohol level of less than 20 mg/100 ml; Z95.1 Presence of aortocoronary bypass graft
CPT/HCPCS: 70450; 71045; 71260; 72125; 80048; 80320; 85025; 99285; J7030; A4216; G0480

== ENCOUNTER 2019-03-23 11:03 | Emergency (ER) | payer MEDICARE, SELFPAY ==
[2019-03-23 11:04] VITALS: BP 159/84; PULSE 103; RESP 20; TEMP 36.4; O2SAT 96; BMI 33.8
--- NOTE | 2019-03-23 11:18 | CT_ITS ---
STUDY: CT BRAIN WITHOUT CONTRAST REASON FOR EXAM: Male, 63 years old. History of fall. RADIATION DOSAGE (If Supplied By Facility): CTDIvol = ( 44.99 ) mGy, DLP = ( 863.60 ) mGycm TECHNIQUE: Transaxial CT imaging of the brain was performed without administration of intravenous contrast material. Individualized dose optimization techniques were used for this CT. COMPARISON: Comparison is made with prior study dated February 24, 2019. FINDINGS: Multiple rounded tiny density is seen in the skull overlying the frontal bones bilaterally. These are unchanged. Normal calvarium. There is mild cerebral atrophy with widening of the extra-axial spaces and ventricular dilatation. There are areas of decreased attenuation within the white matter tracts of the supratentorial brain, consistent with microvascular disease changes. Normal basal ganglia and thalami. Normal brainstem. There is mild cerebellar atrophy. There is no intracranial hemorrhage. There are no findings of an acute ischemic infarction. Atherosclerotic calcification of the cavernous portions of the internal carotid arteries bilaterally. Normal visualized paranasal sinuses. CT/Brain/Head without Contrast IMPRESSION: Chronic involutional changes of the brain. Electronically Signed: Kenneth Givens, at 12:38 EDT , Service support ,
--- NOTE | 2019-03-23 11:19 | EKG12_ITS ---
Test Reason : FALL Blood Pressure : / mmHG Vent. Rate : 104 BPM Atrial Rate : 104 BPM P-R Int : 204 ms QRS Dur : 076 ms QT Int : 344 ms P-R-T Axes : 057 081 020 degrees QTc Int : 452 ms Sinus tachycardia Septal infarct , age undetermined Abnormal ECG Confirmed by ISAAK ORTEGA ([id number]), commercial production editor ZOFIA MURPHY ([id number]) on 03/30/2019 9:09:08 AM Referred By: HORTENCIA Confirmed By:ISAAK ORTEGA
--- NOTE | 2019-03-23 11:19 | CT_ITS ---
STUDY: CT CHEST WITHOUT CONTRAST REASON FOR EXAM: Male, 63 years old. Ethanol abuse. Rib pain secondary to a fall. RADIATION DOSAGE (If Supplied By Facility): CTDIvol = ( 20.15 ) mGy, DLP = ( 822.60 ) mGycm TECHNIQUE: Transaxial imaging was performed without the administration of intravenous contrast material. Multiplanar coronal and sagittal images were reformatted. Individualized dose optimization techniques were used for this CT. COMPARISON: Comparison is made with prior study dated February 24, 2019. FINDINGS: There is a small left pleural effusion with mild increased markings at the left lung base suggestive of a atelectasis. There is no demonstrated pleural abnormality. Sternal cerclage wires and vascular clips are present from a prior sternotomy and coronary artery bypass graft procedure (CABG). There are calcifications of the coronary arteries. There are multiple small lymph nodes within the mediastinum, which are normal in size and morphology most compatible with reactive lymph hyperplasia. Normal hilar regions. Normal unenhanced pulmonary arteries. Normal aorta arch and descending thoracic aorta. There are multi-level degenerative changes of the thoracic spine. Almost complete collapse of a lower dorsal vertebrae. The cyst seen in the upper pole of the left kidney at this time is of increased density most likely representing a hyperdense cyst. Fatty infiltration of the liver. CT/Chest without Contrast IMPRESSION: New small left pleural effusion with underlying left basilar atelectasis. Electronically Signed: Kenneth Givens, at 12:51 EDT , Service support ,
[2019-03-23] MEDS: Morphine 4 MG/ML Syringe IV (11:59)
[2019-03-23 12:20] LABS: Absolute Lymphocyte Count 0.78 X10^3/uL (0.83-4.51); Absolute Neutrophil Count 9.6 X10^3/uL (2.0-7.7); Basophil# 0.03 X10^3/uL; Basophil% 0.3 % (0-1); Eosinophil# 0.05 X10^3/uL; Eosinophils% 0.4 % (0-5); Hematocrit 40.8 % (40-54); Lymphocyte # 0.78 X10^3/ul (4.0); Lymphocyte % 6.9 % (19-41); Mean Corp Hgb Conc 34.3 g/dL (32-36); Mean Corpuscular Volume 93.2 fL (80-94); Mean Platelet Vol. 10.8 fl (6.2-12.0); Monocyte# 0.84 X10^3/uL; Monocyte% 7.4 % (0-10); NRBC Flagged by Analyzer 0 % (0-5); Neutrophil # 9.61 X10^3/uL (2.7-7.7); Neutrophil % 84.6 % (47-70); Platelet Count 194 K/mm3 (150-450); RBC Distribution Width CV 13.3 % (11.6-14.6); RBC Distribution Width SD 45.5 fl (35.1-43.9); Red Blood Count 4.38 M/mm3 (4.6-6.2); White Blood Count 11.4 K/mm3 (4.4-11.0)
[2019-03-23 12:32] LABS: Albumin, Serum 3.6 g/dL (3.2-5.0); BUN 13 mg/dL (7-18); BUN/Creat Ratio 15.9 RATIO (10-20); Creatinine, Serum 0.82 mg/dL (0.70-1.30); EST Glomerular Filtration Rate 100 mL/min (>60); Est Glom Filt Rate - Afr Amer 121 mL/min (>60); Estimated Creatinine Clearance 92.73 ml/min; Globulin 3.5 g/dL (2.2-4.2); Glucose 169 mg/dL (74-106); Protein, Total 7.1 g/dL (6.4-8.2)
[2019-03-23 12:33] LABS: AST(SGOT) 56 U/L (15-37); Alanine Aminotransfer ALT/SGPT 67 U/L (16-61); Alkaline Phosphatase 136 U/L (45-117); Anion Gap 11 (5-15); Calcium,Total 8.4 mg/dL (8.5-10.1); Chloride 101 mmol/L (98-107); Potassium 4.3 mmol/L (3.5-5.1); Sodium Level 137 mmol/L (136-145)
[2019-03-23 12:45] LABS: Alcohol, Blood (Medical)-Serum < 3.0 mg/dL
[2019-03-23 13:34] LABS: Mucous, Urine 0 SEEN /hpf (<or=2+); Red Blood Cells-Urine 0 SEEN /hpf (0-5); Squamous Epithelial Cells - UA 0 SEEN /hpf (0-5); White Blood Cells 0 SEEN /hpf (0-5)
[2019-03-23 13:37] LABS: Color, Urine Yellow (Yellow); Glucose, Dipstick Normal (Normal); Ketone-Dipstick 50 mg/dl (Negative); Leukocyte Esterase-Dipstick Negative /ul (Negative); Nitrite-Dipstick Negative (Negative); Occult Blood-Urine Negative /ul (Negative); Protein-Dipstick Negative (Negative); Specific Gravity, Urine 1.015 (1.002-1.030); Urine Bilirubin Dipstick Negative (Negative); Urine Clarity Sl. Cloudy (Clear); Urine Urobilinogen Normal (Normal)
[2019-03-23] MEDS: HYDROcodone Bitartrate/Apap 5/325 Tablet PO (13:38)
[2019-03-23 13:46] LABS: Bacteria RARE /hpf (None Seen)
[2019-03-23 13:48] LABS: Amphetamine Urine VISTA NEGATIVE (<1000 ng/mL); Barbiturate Urine VISTA NEGATIVE (< 200 ng/mL); Benzodiazepine Urine VISTA NEGATIVE (< 200 ng/mL); Cocaine Urine VISTA NEGATIVE (< 300 ng/mL); Ecstacy Urine VISTA NEGATIVE (< 500 ng/mL); Methadone Urine VISTA NEGATIVE (< 300 ng/mL); PCP Urine VISTA NEGATIVE (< 25 ng/mL); THC Urine VISTA NEGATIVE (< 50 ng/mL); Vista UDS pH Range 5
[2019-03-23 13:54] VITALS: BP 153/90; PULSE 101; RESP 20; O2SAT 97
--- NOTE | 2019-03-23 14:05 | ED.DCSUM_ITS ---
History of Present Illness Chief Complaint: Fall Informant: Patient Onset: Yesterday Context: Gradual Onset Timing: Continuous Current Severity: Moderate Maximum Severity: Moderate Narrative: The patient is a 63-year-old male with history of chronic alcohol abuse and gait instability who presents to the emergency department after a fall. The patient states he was drinking last night. He fell striking his right chest. He is unsure if he hit his head. He did not lose consciousness. The patient did have a fall about 4 weeks ago and had some rib fractures. He states his been recovered from that without issue. He denies any fevers, chills, shortness of breath. Prior similar symptoms: No Recent Illness/Hospitalization: No Past Medical History - Allergies and Home Meds Allergies/Adverse Reactions: Allergies Mwsehic-Hbg-Tul Reductase Inhibitor Allergy (Verified 03/23/19 11:12) Swelling Primary Care Physician: Tushar Martinez MD [Primary Care Provider] - Prior records reviewed: Yes Surgical History: coronary bypass surgery Smoking Status: Former smoker - Family History Paternal Family History: Reports: Heart Disease Review of Systems General: Denies: Chills, Fever, Sweats Eyes: Denies: Visual changes - bilaterally, Diplopia ENT: Denies: Rhinorrhea, Sore throat Cardiovascular: Reports: Chest pain. Denies: Palpitations Respiratory: Denies: Dyspnea, Cough, Dyspnea on exertion Gastrointestinal: Denies: Abdominal pain, Nausea, Vomiting, Diarrhea, Melena, Hematochezia Genitourinary: Denies: Dysuria, Hematuria, Frequency Musculoskeletal: Denies: Back pain, Extremity Pain Skin: Denies: Rash, Wounds Neurological: Denies: Headache, Weakness, Numbness Physical Exam Vital Signs/Narrative: Vital Signs Temp Pulse Resp BP Pulse Ox 03/23/19 13:54 101 H 20 H 153/90 H 97 03/23/19 11:04 97.6 F L 103 H 20 H 159/84 H 96 Inital Vital Signs reviewed: Yes General: Well nourished, Well developed, No Acute Distress Head: Normocephalic, Atraumatic Eyes: Perrl, EOMI ENT: Moist mucous membranes, No rhinorrhea Neck: Supple, Nontender Cardiovascular: Regular rate, Regular rhythm, No murmurs Respiratory: No distress, CTA bilaterally, Chest tenderness Abdomen: Soft, Nontender, Nondistended, Normal bowel sounds Back: Nontender, Normal Inspection Extremities: Nontender, No edema Skin: Normal color, No rash Neurological: Alert, Oriented x3, Cranial nerves II-XII grossly intact, Normal Strength, Normal Sensation Psychological: Normal affect, Normal Mood Diagnostic/Tx/Re-eval Clinical Impression(s) from Imaging Studies Brain CT 03/23/19 11:18 IMPRESSION: Chronic involutional changes of the brain. Electronically Signed: Kenneth Lezamauriel, at 12:38 EDT , Service support , Chest CT 03/23/19 11:19 IMPRESSION: New small left pleural effusion with underlying left basilar atelectasis. Electronically Signed: Kenneth Tosha, at 12:51 EDT , Service support , Abnormal Lab Results 03/23/19 03/23/19 03/23/19 12:04 12:04 12:04 WBC 11.4 H RBC 4.38 L Hgb 14.0 Hct 40.8 MCV 93.2 MCH 32.0 MCHC 34.3 RDW Std Deviation 45.5 H RDW Coeff of Fred 13.3 Plt Count 194 MPV 10.8 Immature Gran % (Auto) 0.400 Neut % (Auto) 84.6 H Lymph % (Auto) 6.[address] [place] % (Auto) 7.4 Eos % (Auto) 0.4 Baso % (Auto) 0.3 Absolute Neuts (auto) 9.6 H Absolute Lymphs (auto) 0.78 L Nucleated RBC % 0 Sodium 137 Potassium 4.3 Chloride 101 Carbon Dioxide 25.0 Anion Gap 11 BUN 13 Creatinine 0.82 Estim Creat Clear Calc 92.73 Est GFR (MDRD) Af Amer 121 Est GFR (MDRD) Non-Af 100 BUN/Creatinine Ratio 15.9 Glucose 169 H Calcium 8.4 L Total Bilirubin 1.90 H AST 56 H ALT 67 H Alkaline Phosphatase 136 H Total Protein 7.1 Albumin 3.6 Globulin 3.5 Albumin/Globulin Ratio 1.0 Urine Color Urine Clarity Urine pH Ur Specific [place] Urine Protein Urine Glucose (UA) Urine Ketones Urine Occult Blood Urine Nitrite Urine Bilirubin Urine Urobilinogen Ur Leukocyte Esterase Urine RBC Urine WBC Ur Squamous Epith Cells Urine Bacteria Urine Mucus Urine Opiates Screen Urine Methadone Screen Ur Barbiturates Screen Ur Phencyclidine Scrn Ur Amphetamines Screen U Methamphetamin-MDMA U Benzodiazepines Scrn Urine Cocaine Screen U Cannabinoids Screen Ur Drug Screen Comment Ethyl Alcohol < 3.0 03/23/19 03/23/19 13:30 13:30 WBC RBC Hgb Hct MCV MCH MCHC RDW Std Deviation RDW Coeff of Fred Plt Count MPV Immature Gran % (Auto) Neut % (Auto) Lymph % (Auto) [place] % (Auto) Eos % (Auto) Baso % (Auto) Absolute Neuts (auto) Absolute Lymphs (auto) Nucleated RBC % Sodium Potassium Chloride Carbon Dioxide Anion Gap BUN Creatinine Estim Creat Clear Calc Est GFR (MDRD) Af Amer Est GFR (MDRD) Non-Af BUN/Creatinine Ratio Glucose Calcium Total Bilirubin AST ALT Alkaline Phosphatase Total Protein Albumin Globulin Albumin/Globulin Ratio Urine Color Yellow Urine Clarity Sl. Cloudy Urine pH 6.0 Ur Specific [place] 1.015 Urine Protein Negative Urine Glucose (UA) Normal Urine Ketones 50 H Urine Occult Blood Negative Urine Nitrite Negative Urine Bilirubin Negative Urine Urobilinogen Normal Ur Leukocyte Esterase Negative Urine RBC 0 SEEN Urine WBC 0 SEEN Ur Squamous Epith Cells 0 SEEN Urine Bacteria RARE Urine Mucus 0 SEEN Urine Opiates Screen POSITIVE H Urine Methadone Screen NEGATIVE Ur Barbiturates Screen NEGATIVE Ur Phencyclidine Scrn NEGATIVE Ur Amphetamines Screen NEGATIVE U Methamphetamin-MDMA NEGATIVE U Benzodiazepines Scrn NEGATIVE Urine Cocaine Screen NEGATIVE U Cannabinoids Screen NEGATIVE Ur Drug Screen Comment Ethyl Alcohol - Medical Decision Making The patient did have a fall with recent rib fracture. He initially stated that he was interested in detox, but quickly recanted and states he has no interest in stopping drinking. Head CT was obtained which was unremarkable. Chest x-ray shows a small left pleural effusion, but no evidence of pneumothorax, hemothorax, rib contusion or fracture. Screening labs are unremarkable. The patient's pain was treated and is feeling improved. I did ask social work to see the patient. Again, he does not want detox. He states that he has help at home. He will be discharged. Impression 1. Alcohol abuse 2. Fall with right chest contusion ED Disposition - Plan for ED Patient: Disposition: Home or Assisted Living Instructions: FALL, Mechanical Referrals: Juan,Tushar, MD [Primary Care Provider] -
--- NOTE | 2019-03-23 14:10 | CM.ED ---
SOCIAL WORK INFORMANT: DR. BURNETT REASON FOR REFERRAL: SUBSTANCE ABUSE-ALCOHOL DR. BURNETT REQUESTS THIS WORKER FOLLOW UP WITH PATIENT FOR INFORMATION ON DETOX/SUBSTANCE ABUSE TREATMENT. MET WITH PATIENT IN ROOM. INTRODUCED ROLE AND REASON FOR REFERRAL. PATIENT STATES LIVES HOME ALONE IN AN APARTMENT. PATIENT STATES HAS BEEN DRINKING FOR 30-40 YEARS AND STATES HAS NEVER SOUGHT TREATMENT. PATIENT STATES CURRENTLY DRINKS 2-4 DAYS A WEEK. PATIENT STATES EVERY ONCE IN A WHILE I DRINK ENOUGH TO STUMBLE. PATIENT SHOWED THIS WORKER HIS ARMS. ARMS APPEAR TO HAVE CUTS AND BRUISES. DISCUSSED TREATMENT OPTIONS WITH PATIENT AND PROVIDED LIST. PATIENT DENIES ANY FURTHER NEEDS. PATIENT STATES WILL NEED TRANSPORTATION HOME AND PLANS TO CALL [employer]. UPDATED DR. BURNETT AND NURSE ON THE ABOVE. PLAN: HOME WITH RESOURCES FOR SUBSTANCE ABUSE PROVIDED. Karlene JOHNSON MSW, [facility] [employer].
== END 2019-03-23 14:44 | disposition home or self-care (01) ==
LOC: ED 12:09
PROVIDERS: Emergency Provider Emergency Medicine; Family Provider Family Medicine; PCP Family Medicine
DX: S20.211A Contusion of right front wall of thorax, initial encounter (principal); W19.XXXA Unspecified fall, initial encounter; F10.10 Alcohol abuse, uncomplicated; J90 Pleural effusion, not elsewhere classified; Z82.49 Family history of ischemic heart disease and other diseases of the circulatory system; Z87.891 Personal history of nicotine dependence; Z88.8 Allergy status to other drugs, medicaments and biological substances; Z79.899 Other long term (current) drug therapy
CPT/HCPCS: 70450; 71250; 80053; 80307; 80320; 81001; 85025; 93005; 99285; J7030; A4216; G0480

== ENCOUNTER 2019-04-29 07:57 | Emergency (ER) | payer MEDICARE, SELFPAY ==
[2019-04-29 07:59] VITALS: BP 102/92; PULSE 103; RESP 16; TEMP 36.9; O2SAT 98; BMI 33.3
--- NOTE | 2019-04-29 08:07 | CT_ITS ---
STUDY: CT BRAIN WITHOUT CONTRAST REASON FOR EXAM: Male, 63 years old. Laceration to the back of the head following a fall. RADIATION DOSAGE (If Supplied By Facility): CTDIvol = ( 44.99 ) mGy, DLP = ( 829.85 ) mGycm TECHNIQUE: Transaxial CT imaging of the brain was performed without administration of intravenous contrast material. Individualized dose optimization techniques were used for this CT. COMPARISON: Comparison is made with prior examination dated March 23, 2019. FINDINGS: Normal soft tissue structures. Normal calvarium. There is mild cerebral atrophy with widening of the extra-axial spaces and ventricular dilatation. There are areas of decreased attenuation within the white matter tracts of the supratentorial brain, consistent with microvascular disease changes. Normal basal ganglia and thalami. Normal brainstem. There is mild cerebellar atrophy. There is no intracranial hemorrhage. There are no findings of an acute ischemic infarction. Atherosclerotic calcification of the vertebral arteries and cavernous portions of the internal carotid arteries bilaterally. Normal visualized paranasal sinuses. CT/Brain/Head without Contrast IMPRESSION: Chronic involutional changes of the brain. Electronically Signed: Kenneth Givens, at 9:20 EST , Service support ,
--- NOTE | 2019-04-29 08:08 | ED.VIS.GEN ---
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 He has frequent falls. He does ambulate with a cane in his home. He states today he lost his balance is hard to fall backwards. He had the back of his head on linoleum floor. He denies loss of consciousness. He denies feeling lightheaded or dizzy prior to his fall. He has not had chest pain or palpitations. He is unsure of his last tetanus update. He reports no neck pain. - Past Medical History (1) CAD (coronary artery disease) Status: Chronic (2) DM2 (diabetes mellitus, type 2) Status: Chronic Past Medical History - Allergies and Home Meds Allergies/Adverse Reactions: Allergies Nvcxvmd-Nza-Doh Reductase Inhibitor Allergy (Verified 04/29/19 08:02) Swelling Primary Care Physician: Tushar Martinez MD [Primary Care Provider] - Prior records reviewed: Yes Surgical History: coronary bypass surgery Smoking Status: Former smoker - Family History Paternal Family History: Reports: Heart Disease Review of Systems General: Denies: Chills, Fever Eyes: Denies: Visual changes - bilaterally ENT: Denies: Bilateral ear pain Cardiovascular: Denies: Chest pain, Palpitations Respiratory: Denies: Dyspnea, Cough Gastrointestinal: Denies: Abdominal pain, Nausea, Vomiting, Diarrhea Musculoskeletal: Denies: Neck pain, Back pain Skin: Reports: Abrasions, Wounds Neurological: Denies: Headache Endocrine: Denies: Polyuria, Polydipsia Allergy: Denies: Uticaria Physical Exam Vital Signs/Narrative: Vital Signs Temp Pulse Resp BP Pulse Ox 04/29/19 07:59 98.5 F 103 H 16 102/92 H 98 Inital Vital Signs reviewed: Yes General: Well nourished, Well developed Head: Normocephalic, Trauma - 3 cm linear laceration over the right posterior parietal scalp. Bleeding is well controlled. Eyes: Perrl ENT: Moist mucous membranes Neck: Supple, - - No C-spine tenderness. Cardiovascular: Regular rate, Regular rhythm Respiratory: No distress, CTA bilaterally, Chest nontender Abdomen: Soft, Nontender Extremities: - - Multiple abrasions noted to the extremities in different stages of healing. No bony tenderness. Skin: - - As above Neurological: Alert, Oriented x3, Normal Strength, Normal Sensation Psychological: Normal affect Diagnostic/Tx/Re-eval Impressions Brain CT 04/29/19 08:07 IMPRESSION: Chronic involutional changes of the brain. Electronically Signed: Kenneth Givens, at 9:20 EST , Service support , 04/29/19 08:07 CT Head [Brain/Head without Contrast] [CT] Stat 04/29/19 08:51 Shoulder min 2 Views [RAD] Stat-per ED physician review no evidence of acute fracture. - Medical Decision Making Patient's posterior scalp wound was cleansed and patient was sent to CT. No intracranial abnormalities noted. Wound was anesthetized with 2 cc of 1% lidocaine with epinephrine. Wound is cleansed and 2 saman are placed. While lying on his left side for scalp repair, patient did note pain in his left shoulder. He is left-hand dominant. X-rays of the left shoulder appear unremarkable. Tetanus update is provided. At this time patient has been able to get up and ambulate to the restroom and back without difficulty. He will be discharged home and is to have saman removed in 1 week. Procedures - Lacerations No standard instances Length: 1.18 in Depth: Sub Q Shape: Linear Prep: Maddie Laceration repair: Irrigated, Lidocaine with epi Number of Sutures/Saman: 2 - saman ED Disposition - Plan for ED Patient: Disposition: Home or Assisted Living Diagnosis: Fall, Scalp laceration, Shoulder contusion Instructions: LACERATION, Scalp, CONTUSION, Upper Extremity Referrals: Tushar Martinez MD [Primary Care Provider] - 7 Days for suture removal
[2019-04-29] MEDS: Diphth,Pertuss(Acell),Tet Vac 0.5 ML Vial IM (08:39)
--- NOTE | 2019-04-29 08:51 | RAD_ITS ---
STUDY: X-RAY - LEFT SHOULDER REASON FOR EXAM: Male, 63 years old. Left shoulder pain following a fall. TECHNIQUE: 4 view(s) of the shoulder. COMPARISON: None. FINDINGS: There is mild degenerative arthrosis of the glenohumeral articulation. Normal acromioclavicular joint. Normal acromion. Normal humeral head and visualized proximal humerus. The soft tissue structures are unremarkable. Normal visualized pulmonary apex. RAD/Shoulder min 2 Views IMPRESSION: Mild degree of degenerative changes. Electronically Signed: Kenneth Givens, at 9:25 EST , Service support ,
== END 2019-04-29 09:42 | disposition home or self-care (01) ==
PROVIDERS: Emergency Provider Emergency Medicine; Family Provider Family Medicine; PCP Family Medicine
DX: S01.01XA Laceration without foreign body of scalp, initial encounter (principal); S40.012A Contusion of left shoulder, initial encounter; W18.30XA Fall on same level, unspecified, initial encounter; Y93.9 Activity, unspecified; Y92.89 Other specified places as the place of occurrence of the external cause; Y99.9 Unspecified external cause status; E11.9 Type 2 diabetes mellitus without complications; I25.10 Atherosclerotic heart disease of native coronary artery without angina pectoris; Z82.49 Family history of ischemic heart disease and other diseases of the circulatory system; Z87.891 Personal history of nicotine dependence; Z88.8 Allergy status to other drugs, medicaments and biological substances
CPT/HCPCS: 12001; 70450; 73030; 90715; 99285

== ENCOUNTER → 2019-05-07 12:30 | Outpatient (CLI) | payer MEDICARE, SELFPAY ==
[2019-04-29 07:59] VITALS: BMI 33.3
[2019-05-08 05:06] LABS: HEPATITIS B SURFACE AG Negative (Negative); Hepatitis A IgM Antibody Negative (Negative); Hepatitis B Core AB IgM Negative (Negative)
[2019-05-08 09:33] LABS: Hep C Antibodies <0.1 s/co ratio (0.0-0.9)
== END ==
PROVIDERS: Family Provider Family Medicine; PCP Family Medicine; Referring Provider Family Medicine; Visit Provider Family Medicine
DX: R74.0 Nonspecific elevation of levels of transaminase and lactic acid dehydrogenase [LDH] (principal)
CPT/HCPCS: 36415; 80074

== ENCOUNTER 2019-06-25 12:03 | Emergency (ER) | payer MEDICARE, SELFPAY ==
[2019-06-25 12:04] VITALS: PULSE 94; RESP 17; TEMP 36.9; O2SAT 92
[2019-06-25 12:05] VITALS: BP 119/76; PULSE 95; RESP 17; TEMP 36.9; O2SAT 93; BMI 33.5
--- NOTE | 2019-06-25 13:14 | CT_ITS ---
STUDY: CT BRAIN WITHOUT CONTRAST REASON FOR EXAM: Male, 63 years old. HEAD INJURY RADIATION DOSAGE (If Supplied By Facility): CTDIvol = ( 44.99 ) mGy, DLP = ( 846.73 ) mGycm TECHNIQUE: Transaxial CT imaging of the brain was performed without administration of intravenous contrast material. Individualized dose optimization techniques were used for this CT. COMPARISON: Comparison is made with prior examination April 29, 2019. FINDINGS: Normal soft tissue structures. Normal calvarium. There is moderate cerebral atrophy with widening of the extra-axial spaces and ventricular dilatation. There are areas of decreased attenuation within the white matter tracts of the supratentorial brain, consistent with microvascular disease changes. Normal basal ganglia and thalami. Normal brainstem. There is mild cerebellar atrophy. There is no intracranial hemorrhage. There are no findings of an acute ischemic infarction. Atherosclerotic calcification of the vertebral arteries and the cavernous portions of the internal carotid arteries bilaterally. Normal visualized paranasal sinuses. CT/Brain/Head without Contrast IMPRESSION: Chronic involutional changes of the brain. Electronically Signed: Kenneth Givens, at 14:59 EST , Service support ,
--- NOTE | 2019-06-25 13:16 | CT_ITS ---
STUDY: CT CERVICAL SPINE WITHOUT CONTRAST REASON FOR EXAM: Male, 63 years old. HEAD INJURY RADIATION DOSAGE (If Supplied By Facility): CTDIvol = ( 29.73 ) mGy, DLP = ( 715.70 ) mGycm TECHNIQUE: High resolution transaxial imaging was performed without contrast material. Sagittal and coronal images were reconstructed. Individualized dose optimization techniques were used for this CT. COMPARISON: Comparison is made with prior examination dated February 24, 2019. FINDINGS: Normal craniovertebral junction. There are degenerative changes of the anterior atlantoaxial articulation. Normal odontoid process. Normal cervical lordosis. Normal vertebral bodies and posterior osseous elements. C2-3: Normal endplates. Normal disc height and morphology. Normal central canal and intervertebral neuroforamina. C3-4: Normal endplates. Normal disc height and morphology. Normal central canal and intervertebral neuroforamina. C4-5: Mild degree of disc space narrowing with mild retrolisthesis of C4 on C5. This is unchanged. Uncovertebral arthrosis. C5-6: Marked degree of disc space narrowing with posterior spondylosis and a subchondral sclerosis. Uncovertebral arthrosis with a moderate degree of bilateral neural foraminal stenosis. C6-7: Moderate degree of disc space narrowing. Spondylosis. Uncovertebral arthrosis. C7-T1: Normal endplates. Normal disc height and morphology. Normal central canal and intervertebral neuroforamina. Normal visualized soft tissue structures. CT/Spine Cervical without Contras IMPRESSION: Multilevel degenerative changes, as described above. Stable examination. Electronically Signed: Kenneth Givens, at 15:01 EST , Service support ,
--- NOTE | 2019-06-25 13:18 | ED.VISSUMM ---
- ER Visit Summary Date of Service: 06/25/19 Chief Complaint: Fall with head injury History of Present Illness: The patient is a 63 M 3 of alcohol abuse, diabetes, hypertension, CAD with prior bypass and stents. Reportedly fell at home today. Says he hit his head on the floor. Denies any LOC or headache. Denies being on blood thinners. Also complains of mild neck pain. Denies any numbness or tingling of his upper or lower extremities. Reportedly was found on the floor by wheels on meals. He denies any recent illness. He denies nausea, vomiting, diarrhea or fever. He denies melena. He denies using alcohol a day but has a history of abuse. Physical Examination: Older male vital signs stable afebrile. H EENT exam is had a contusion and abrasion over his mid forehead and left side of his forehead. There is mild swelling. Pupils are unreactive light. Scalp nontender no hematomas. Spine is had diffuse tenderness. Trachea midline. Lungs clear to auscultation. Heart regular rhythm no murmur. Chest wall nontender. Abdomen soft nontender normal bowel sounds no peritoneal signs. Pelvic girdle intact. He is moving all 4 extremities. He has normal range of motion. There is no gross bony deformities. No shortening or rotation of either hip. Dorsi plantarflexion intact. 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 His abrasion to his right forearm with mild dried blood but no active bleeding and no significant laceration. Back nontender. Neurologically is awake and alert. He is moving all 4 extremities. He has no focal motor deficits. Test Results: CAT scan of his brain without contrast read by the radiologist and reviewed by me. Acute abnormality. CAT scan of the C-spine read by the radiologist and reviewed by me. Shows no acute abnormality. Arthritis of the C-spine. CBC shows normal white count 9. Hemoglobin 15. Chemistries are unremarkable. Alcohol is elevated at 120. Consistent with his history of alcohol abuse. Emergency Department Course and Treatment: Older male with fall. Also has a history of alcohol abuse. Screening labs being obtained. CAT scan of his brain and neck due to the head injury. Repeat exam at 1546 patient is doing well. To be discharged home. Treatment Plan: Discharged home. Strongly consider alcohol counseling. Disposition: Discharge Impression: Acute fall Close head injury Cervical strain History of alcohol abuse and acute intoxication This note was generated with Dragon dictation software. It may contain incorrect words, spelling, and punctuation that were not noted in review of the chart prior to signing ED Disposition - Plan for ED Patient: Referrals: Tushar Martinez MD [Primary Care Provider] -
[2019-06-25 14:00] LABS: Absolute Lymphocyte Count 2.03 X10^3/uL (0.83-4.51); Absolute Neutrophil Count 6.8 X10^3/uL (2.0-7.7); Basophil# 0.05 X10^3/uL; Basophil% 0.5 % (0-1); Eosinophil# 0.18 X10^3/uL; Eosinophils% 1.8 % (0-5); Hemoglobin 15.6 g/dL (13.0-16.5); Lymphocyte # 2.03 X10^3/ul (4.0); Lymphocyte % 20.7 % (19-41); Mean Corp Hgb Conc 33.9 g/dL (32-36); Mean Corpuscular Hgb 30.8 pg (27.0-32.0); Mean Corpuscular Volume 90.7 fL (80-94); Mean Platelet Vol. 10.5 fl (6.2-12.0); Monocyte# 0.75 X10^3/uL; Monocyte% 7.6 % (0-10); NRBC Flagged by Analyzer 0 % (0-5); Neutrophil # 6.75 X10^3/uL (2.7-7.7); Neutrophil % 68.7 % (47-70); Platelet Count 221 K/mm3 (150-450); RBC Distribution Width CV 13.2 % (11.6-14.6); RBC Distribution Width SD 43.6 fl (35.1-43.9); Red Blood Count 5.07 M/mm3 (4.6-6.2); White Blood Count 9.8 K/mm3 (4.4-11.0)
[2019-06-25 14:10] LABS: Anion Gap 9 (5-15); BUN 9 mg/dL (7-18); BUN/Creat Ratio 10.5 RATIO (10-20); Calcium,Total 8.7 mg/dL (8.5-10.1); Chloride 103 mmol/L (98-107); Creatinine, Serum 0.86 mg/dL (0.70-1.30); EST Glomerular Filtration Rate 95 mL/min (>60); Est Glom Filt Rate - Afr Amer 115 mL/min (>60); Estimated Creatinine Clearance 88.42 ml/min; Glucose 134 mg/dL (74-106); Potassium 4.2 mmol/L (3.5-5.1); Sodium Level 136 mmol/L (136-145)
[2019-06-25 14:12] VITALS: BP 118/63; PULSE 89; RESP 16; O2SAT 99
--- NOTE | 2019-06-25 15:47 | ED.DEP ---
ED Disposition - Plan for ED Patient: Disposition: Home or Assisted Living Instructions: HEAD INJURY, No Wake-Up (Adult), Alcohol Abuse Referrals: Tushar Martinez MD [Primary Care Provider] - As Needed Additional Instructions: Follow-up with your doctor. You need to decrease your alcohol consumption. Strongly consider alcohol counseling and detox.
[2019-06-25 16:09] VITALS: BP 118/63
== END 2019-06-25 16:09 | disposition home or self-care (01) ==
PROVIDERS: Emergency Provider Emergency Medicine; PCP Family Medicine
DX: S09.90XA Unspecified injury of head, initial encounter (principal); S16.1XXA Strain of muscle, fascia and tendon at neck level, initial encounter; W19.XXXA Unspecified fall, initial encounter; Y92.009 Unspecified place in unspecified non-institutional (private) residence as the place of occurrence of the external cause; F10.10 Alcohol abuse, uncomplicated; E11.9 Type 2 diabetes mellitus without complications; I10 Essential (primary) hypertension; I25.10 Atherosclerotic heart disease of native coronary artery without angina pectoris; Z95.1 Presence of aortocoronary bypass graft; Z79.899 Other long term (current) drug therapy
CPT/HCPCS: 70450; 72125; 80048; 80320; 85025; 99285; A4216; G0480

== ENCOUNTER 2019-07-27 12:02 | Emergency (ER) | payer MEDICARE, SELFPAY ==
[2019-07-27 12:03] VITALS: BP 147/85; PULSE 98; RESP 18; TEMP 37.1; O2SAT 96; BMI 31.8
--- NOTE | 2019-07-27 12:15 | ED.RN ---
PT ARRIVES PER EMS WITH VARIOUS INJURIES IN DIFFERENT STAGES OF HEALING POST MULTIPLE FALLS. PT STATES THAT HE HAS HAD INCREASED FALLS AND LOSES HIS BALANCE A LOT. PT AMBULATES WITH USE OF CANE AT HOME. PT HAD FALLEN EARLIER TODAY AND EMS WAS DISPATCHED TO SCENE. PT SIGNED OFF AND WAS NOT TRANSPORTED AT THAT TIME. PT THEN FELL AGAIN AND EMS RETURNED TO HOME. PT STATES THAT FALLS HAVE INCREASED OVER THE PAST WEEK. PT LIVES ALONE, NO HHC.
--- NOTE | 2019-07-27 12:32 | CT_ITS ---
STUDY: CT BRAIN WITHOUT CONTRAST REASON FOR EXAM: Male, 63 years old. Head injury, multiple falls, abrasion to forehead. Hx hypertension. RADIATION DOSAGE (If Supplied By Facility): CTDIvol = ( 44.99 ) mGy, DLP = ( 863.60 ) mGycm TECHNIQUE: Transaxial CT imaging of the brain was performed without administration of intravenous contrast material. Individualized dose optimization techniques were used for this CT. COMPARISON: Comparison is made with prior examination dated June 25, 2019. FINDINGS: Punctate calcifications in the skull overlying the frontal bone. Normal calvarium. There is mild cerebral atrophy with widening of the extra-axial spaces and ventricular dilatation. There are areas of decreased attenuation within the white matter tracts of the supratentorial brain, consistent with microvascular disease changes. Normal basal ganglia and thalami. Normal brainstem. There is mild cerebellar atrophy. There is no intracranial hemorrhage. There are no findings of an acute ischemic infarction. Atherosclerotic calcification of the cavernous portions of the internal carotid arteries as well as the vertebral arteries bilaterally. Normal visualized paranasal sinuses. CT/Brain/Head without Contrast IMPRESSION: Chronic involutional changes of the brain. Electronically Signed: Kenneth Givens, at 13:20 EST , Service support ,
--- NOTE | 2019-07-27 12:34 | ED.VISSUMM ---
- ER Visit Summary Date of Service: 07/27/19 Chief Complaint: Fall History of Present Illness: The patient is a 63 M who presents after a fall that occurred today. Patient states he has a history of frequent falls. Patient actually fell twice today. EMS did not bring the patient to the emergency department after the first fall. Patient states he has a balance problem that causes him to fall frequently. Patient denies any loss of anxiousness. Patient states he was having difficulty standing after the fall. Patient denies any paresthesias or weakness. Patient complains of some mild pain over his head and low back. Patient denies any other injuries. Patient states his last tetanus was within 5 years. Physical Examination: Vital signs are stable. Patient is afebrile. Patient is in no acute distress. Skin is warm dry. There are multiple abrasions over the forehead, face, and right elbow. There is no active bleeding noted. There is no gapping of the wound margins. Cranial nerves II through XII are intact. There are no focal motor or sensory deficits noted. Extremities are intact. There is good range of motion in all extremities. There are no deformities noted. There is some mild tenderness over the lower lumbar spine and paraspinal muscles. There is no bony crepitance or step-off. Range of motion was slightly limited in all motions of the lumbar spine secondary to pain. Heart was regular rate and rhythm. Lungs are clear and equal bilaterally. Abdomen is soft. Bowel sounds are normal. There is no tenderness. Test Results: CT scan of the brain was obtained. There is no acute intracranial abnormality. X-rays of the lumbar spine were obtained. There is no acute fracture. There are degenerative changes. These were interpreted by the radiologist and myself. CBC shows a mild leukocytosis of 14.4. Comprehensive metabolic profile was essentially within normal limits. PT with INR and PTT were normal. Emergency Department Course and Treatment: The wounds were cleaned and dressed with bacitracin dressings. I attempted to ambulate the patient he was still unsteady on his feet. Since the patient has been having frequent falls, I recommended admission to the hospital for placement in a rehab facility. Patient is agreeable with this. Case was discussed with the hospitalist. Patient will be admitted for observation. Disposition: Admit for observation Impression: Frequent falls This note was generated with [employer] dictation software. It may contain incorrect words, spelling, and punctuation that were not noted in review of the chart prior to signing ED Disposition - Plan for ED Patient: Disposition: Acute Care Hospital [facility] Diagnosis: Frequent falls Referrals: Tushar Martinez MD [Primary Care Provider] -
[2019-07-27 12:59] LABS: Absolute Lymphocyte Count 2.39 X10^3/uL (0.83-4.51); Absolute Neutrophil Count 10.6 X10^3/uL (2.0-7.7); Basophil# 0.06 X10^3/uL; Basophil% 0.4 % (0-1); Eosinophil# 0.15 X10^3/uL; Hemoglobin 16.5 g/dL (13.0-16.5); Lymphocyte # 2.39 X10^3/ul (4.0); Lymphocyte % 16.6 % (19-41); Mean Corp Hgb Conc 35.1 g/dL (32-36); Mean Corpuscular Hgb 31.3 pg (27.0-32.0); Mean Corpuscular Volume 89.2 fL (80-94); Mean Platelet Vol. 11.5 fl (6.2-12.0); Monocyte# 1.07 X10^3/uL; Monocyte% 7.5 % (0-10); NRBC Flagged by Analyzer 0 % (0-5); Neutrophil # 10.64 X10^3/uL (2.7-7.7); Neutrophil % 74.2 % (47-70); Platelet Count 216 K/mm3 (150-450); RBC Distribution Width CV 13.2 % (11.6-14.6); RBC Distribution Width SD 42.6 fl (35.1-43.9); Red Blood Count 5.27 M/mm3 (4.6-6.2); White Blood Count 14.4 K/mm3 (4.4-11.0)
--- NOTE | 2019-07-27 13:00 | RAD_ITS ---
STUDY: X-RAY - LUMBAR SPINE REASON FOR EXAM: Male, 63 years old. PAIN S/P FALL TECHNIQUE: 3 view(s) of the lumbar spine were obtained. COMPARISON: Comparison is made with prior CT scan of the lumbar spine dated March 07, 2018. FINDINGS: Normal lumbar lordosis. There is a mild dextroscoliosis of the lumbar spine. Minimal anterior listhesis of L4 on L5 most likely secondary to facet joint osteoarthritis . There is evidence of an old compression fracture with fragmentation of the T12 body. There is multilevel endplate spondylosis of the lumbar vertebrae. There is multi-level degenerative disc disease with multi-level disc space narrowing. Facet joint osteoarthritis. There is atherosclerotic calcification of the abdominal aorta without a demonstrated aneurysm. RAD/Lumbar Spine 2 or 3 Views IMPRESSION: Degenerative changes of the spine, as detailed above. Stable compression fracture with fragmentation of the T12 vertebra. Electronically Signed: Kenneth Givens, at 13:29 EST , Service support ,
[2019-07-27 13:14] LABS: Prothrombin Time (Protime)PT. 13.3 SECONDS (11.7-14.9)
[2019-07-27 13:15] LABS: Partial Thromboplast Time 27.9 Seconds (24.1-36.2)
[2019-07-27 13:19] LABS: AST(SGOT) 38 U/L (15-37); Alanine Aminotransfer ALT/SGPT 74 U/L (16-61); Albumin, Serum 3.6 g/dL (3.2-5.0); Alkaline Phosphatase 142 U/L (45-117); Anion Gap 14 (5-15); BUN 8 mg/dL (7-18); BUN/Creat Ratio 10.9 RATIO (10-20); Calcium,Total 8.9 mg/dL (8.5-10.1); Chloride 102 mmol/L (98-107); Creatinine, Serum 0.74 mg/dL (0.70-1.30); EST Glomerular Filtration Rate 113 mL/min (>60); Est Glom Filt Rate - Afr Amer 137 mL/min (>60); Estimated Creatinine Clearance 102.76 ml/min; Globulin 3.7 g/dL (2.2-4.2); Glucose 123 mg/dL (74-106); Potassium 3.3 mmol/L (3.5-5.1); Protein, Total 7.3 g/dL (6.4-8.2); Sodium Level 137 mmol/L (136-145)
[2019-07-27 15:19] VITALS: PULSE 98; RESP 22; O2SAT 98
[2019-07-27] MEDS: BACITRACIN 15 GM Tube 1 APPLIC TOPICAL (15:39)
--- NOTE | 2019-07-27 15:45 | CM.ED ---
SOCIAL WORK INFORMANT: DR. BROWN REASON FOR REFERRAL: DISCHARGE PLANNING CHIEF COMPLIANT: FREQUENT FALLS PATIENT WANTING REHAB. LIVING SITUATION: PATIENT LIVES HOME ALONE IN A SINGLE STORY APARTMENT DME: [facility] TREATMENT/HISTORY: PATIENT DENIES ANY HISTORY OF MENTAL HEALTH SUBSTANCE ABUSE HISTORY: PATIENT ADMITS TO OCCASIONAL USE OF ALCOHOL. PATIENT STATES HAS ABSTAINED FOR SEVERAL WEEKS. ASSESSMENT: UPON ARRIVAL UPDATED BY EMS ON CONCERNS WITH PATIENT RETURNING HOME. PATIENT HAD 3 FALLS IN LAST 24 HOURS AND EMS WAS CALLED TO ASSIST. EMS WITH CONCERNS OF ALCOHOL USE. MET WITH PATIENT IN ROOM. INTRODUCED ROLE AND REASON FOR REFERRAL. PATIENT STATES HAS BEEN WEAK AND HAVING FREQUENT FALLS AT HOME. PATIENT REPORTS DOES NOT CURRENTLY HAVE SERVICES IN THE HOME. DISCUSSED SAFETY CONCERNS FOR PATIENT RETURNING HOME. PATIENT OPEN TO SENIOR CARE PLACEMENT FOR REHAB BEFORE RETURNING HOME. DR. BROWN TO DISCUSS WITH HOSPITALIST. PLAN: MAXWELL JOHNSON, STOCK LAYER, BELT SANDER.
--- NOTE | 2019-07-27 16:08 | CM.ED ---
SOCIAL WORK UPDATED BY DR. BROWN, HOSPITALIST MET WITH PATIENT AND PATIENT NOW DENIES NEED FOR SENIOR CARE. MET WITH PATIENT IN ROOM. PATIENT STATES WISHES TO RETURN HOME. PATIENT IN AGREEMENT WITH REFERRAL FOR HOME HEALTH SERVICES. DISCUSSED OPTIONS. REFERRAL TO [facility] FOR GROUP HOME AND PHYSICAL THERAPY. PATIENT KNOWN TO HOME HEALTH. [facility] TO FOLLOW UP. PLAN: HOME WITH REFERRAL TO [facility]. Karlene JOHNSON MSW, OUTSIDE DEALER SALES REPRESENTATIVE.
--- NOTE | 2019-07-27 17:26 | DCINST.ED_ITS ---
ED Disposition - Plan for ED Patient: Disposition: Acute Care Hospital [facility] Diagnosis: Frequent falls
--- NOTE | 2019-07-27 17:26 | ED.DEP ---
ED Disposition - Plan for ED Patient: Disposition: Acute Care Hospital [facility] Diagnosis: Frequent falls
--- NOTE | 2019-07-27 17:43 | ED.DEP ---
ED Disposition - Plan for ED Patient: Disposition: Home or Assisted Living Diagnosis: Frequent falls Instructions: FALL, Uncertain Cause Referrals: Tushar Martinez MD [Primary Care Provider] - As soon as possible
== END 2019-07-27 18:00 | disposition home or self-care (01) ==
PROVIDERS: Emergency Provider Emergency Medicine; PCP Family Medicine
DX: R29.6 Repeated falls (principal); I10 Essential (primary) hypertension; S09.90XA Unspecified injury of head, initial encounter; W19.XXXA Unspecified fall, initial encounter
CPT/HCPCS: 70450; 72100; 80053; 85025; 85610; 85730; 99285; A4216

== ENCOUNTER 2019-07-28 10:16 | Inpatient (IN) | payer MEDICARE, SELFPAY ==
[2019-07-27 12:03] VITALS: BMI 31.8
--- NOTE | 2019-07-28 10:14 | EKG12_ITS ---
Test Reason : CP Blood Pressure : / mmHG Vent. Rate : 105 BPM Atrial Rate : 105 BPM P-R Int : 186 ms QRS Dur : 074 ms QT Int : 356 ms P-R-T Axes : -17 085 017 degrees QTc Int : 470 ms Sinus tachycardia Septal infarct , age undetermined Abnormal ECG Confirmed by ISAAK ORTEGA ([id number]), communications editor IWONA DIA ([id number]) on 07/29/2019 4:13:47 PM Referred By: [facility]/ES Confirmed By:ISAAK ORTEGA
[2019-07-28 10:18] VITALS: BP 139/87; PULSE 104; RESP 17; TEMP 36.6; O2SAT 97; BMI 32.1
--- NOTE | 2019-07-28 10:53 | RAD_ITS ---
STUDY: X-RAY - LUMBAR SPINE REASON FOR EXAM: Male, 63 years old. LOW BACK PAIN, BALANCE ISSUES, MULTIPLE FALLS TECHNIQUE: 3 view(s) of the lumbar spine were obtained. COMPARISON: 07/27/2019 FINDINGS: Normal lumbar lordosis. Again noted is the compression fracture at T12 without change since the prior examination There is multilevel endplate spondylosis of the lumbar vertebrae. There is multi-level degenerative disc disease with multi-level disc space narrowing. There is atherosclerotic calcification of the abdominal aorta. RAD/Lumbar Spine 2 or 3 Views IMPRESSION: Degenerative changes of the spine. Chronic T12 fracture. If clinically warranted, further evaluation with CT or MRI can be obtained. Electronically Signed: Patsy Pemberton MD at 12:13 EST Tel , Service support ,
[2019-07-28 11:24] LABS: Absolute Lymphocyte Count 2.14 X10^3/uL (0.83-4.51); Absolute Neutrophil Count 11.3 X10^3/uL (2.0-7.7); Basophil# 0.06 X10^3/uL; Basophil% 0.4 % (0-1); Eosinophil# 0.16 X10^3/uL; Eosinophils% 1.1 % (0-5); Hematocrit 43.4 % (40-54); Hemoglobin 15.2 g/dL (13.0-16.5); Lymphocyte # 2.14 X10^3/ul (4.0); Lymphocyte % 14.5 % (19-41); Mean Corpuscular Hgb 31.2 pg (27.0-32.0); Mean Corpuscular Volume 89.1 fL (80-94); Mean Platelet Vol. 11.1 fl (6.2-12.0); Monocyte# 1.09 X10^3/uL; Monocyte% 7.4 % (0-10); NRBC Flagged by Analyzer 0 % (0-5); Neutrophil % 76.3 % (47-70); Platelet Count 203 K/mm3 (150-450); RBC Distribution Width CV 13.4 % (11.6-14.6); RBC Distribution Width SD 43.4 fl (35.1-43.9); Red Blood Count 4.87 M/mm3 (4.6-6.2); White Blood Count 14.8 K/mm3 (4.4-11.0)
[2019-07-28] MEDS: 0.9% Normal Saline 1,000 ML 1000 ML IV (11:27)
[2019-07-28 11:41] LABS: ALB/GLOB Ratio 1.1 RATIO (0.9-2.4); AST(SGOT) 30 U/L (15-37); Alanine Aminotransfer ALT/SGPT 56 U/L (16-61); Albumin, Serum 3.6 g/dL (3.2-5.0); Alkaline Phosphatase 134 U/L (45-117); Anion Gap 10 (5-15); BUN 9 mg/dL (7-18); BUN/Creat Ratio 11.3 RATIO (10-20); Calcium,Total 8.7 mg/dL (8.5-10.1); Chloride 100 mmol/L (98-107); EST Glomerular Filtration Rate 103 mL/min (>60); Est Glom Filt Rate - Afr Amer 125 mL/min (>60); Estimated Creatinine Clearance 95.05 ml/min; Globulin 3.4 g/dL (2.2-4.2); Glucose 131 mg/dL (74-106); Potassium 3.3 mmol/L (3.5-5.1); Sodium Level 136 mmol/L (136-145)
[2019-07-28 12:32] VITALS: BP 163/87; PULSE 92; RESP 20; O2SAT 97
--- NOTE | 2019-07-28 12:49 | CM.ED ---
Social Work Consult: long-term placement Informant: Dr. Calvo Per chart review patient was in the ED yesterday and recommendation was group home placement at that time, patient was not agreeable to this. Concerns with patient being able to care for self. An APS referral was made along with referral for home health services through [facility]. Spoke with patient in room. Patient stating to have fallen at home and to now want group home placement as patient is not able to care for self at home. Patient with no further questions. Patient stating to have limited support and there is no one patient would like this executive secretary social welfare to call. Telephone call from Ayo KEENAN. Ayo inquiring as to patient status. This executive secretary social welfare updating Ayo on plan for admission to hospital and then group home placement. Telephone call to [facility] Tracy WATSON. Updated on patient current location and putting home health referral on hold at this time. Updated Dr. Calvo on above information. Natalee Shelton MSW, CARISA
--- NOTE | 2019-07-28 14:26 | ED.VISSUMM ---
- ER Visit Summary Date of Service: 07/28/19 Chief Complaint: Frequent falls History of Present Illness: The patient is a 63 M who presents with low back pain that began after a fall again today. Patient was seen yesterday for a fall. Patient had x-rays of his back done at that time which were normal. Patient also had a head CT done yesterday which was normal. Patient had lab work which showed a mild leukocytosis yesterday. Patient states he loses his balance and falls frequently. Patient was agreeable to admission yesterday however he change his mind and wanted to go home. Home health aides and home physical therapy were arranged for the patient. Patient fell again today where he presented to the emergency department. Patient is agreeable to admission today to be placed in a rehab facility. Physical Examination: Vital signs are stable. Patient is afebrile. Patient is in no acute distress. Skin is warm and dry. There are multiple abrasions. There is no active bleeding. Extremities are intact. There is full range of motion of the upper and lower extremities. Cranial nerves II through XII are grossly intact. There are no focal motor or sensory deficits noted. Heart was regular rate and rhythm. Lungs are clear and equal bilaterally. Abdomen is soft. Bowel sounds are normal. There is no tenderness. Test Results: CBC shows a mild leukocytosis again today of 14.8. Comprehensive metabolic profile shows slightly elevated bilirubin of 1.2 and a slightly elevated alk phos of 134. The remainder was within normal limits. EKG showed sinus rhythm with a rate of 105. There are no acute ST or T wave changes. X-rays of the lumbar spine were obtained again today and were within normal limits. These were interpreted by the radiologist and myself. Emergency Department Course and Treatment: Patient was agreeable to be admitted today to be placed in a rehab facility. Case was discussed with the hospitalist. He will admit the patient to his service. Patient understands and is agreeable with the plan. All questions were answered. Disposition: Admit for observation Impression: Frequent falls This note was generated with [employer] software. It may contain incorrect words, spelling, and punctuation that were not noted in review of the chart prior to signing ED Disposition - Plan for ED Patient: Disposition: Acute Care Hospital [facility] Diagnosis: Frequent falls
[2019-07-28 14:33] VITALS: BP 131/84; PULSE 104; RESP 19; TEMP 36.6; O2SAT 97
[2019-07-28 15:06] VITALS: BMI 32.2
--- NOTE | 2019-07-28 15:38 | HP.PCM_ITS ---
<Berta Chen - Last Filed: 07/28/19 16:20> Problem List (1) Rhabdomyolysis Status: Resolved (2) CANDI (acute kidney injury) Status: Resolved (3) Post concussion syndrome Status: Resolved (4) CAD (coronary artery disease) Status: Chronic (5) Vertigo Status: Chronic (6) DM2 (diabetes mellitus, type 2) Status: Chronic (7) Hypoglycemia Status: Resolved (8) Frequent falls Status: Acute History of Present Illness Date of Admission: 07/28/19 Chief Complaint: Falls, debility. The patient is a 63 year old M who presents to the emergency room due to falls. Patient has had recurrent ER visits due to falls. Patient was seen in the emergency room 06/25/2019 due to fall with head injury. He was found to have increased alcohol level at that time. Patient seen in ER yesterday following a fall. He went home with home health and physical therapy at that time. Patient states he chronically feels off balance and has falls at home however this is worsened over the past few days. He complains of left rib pain and back pain. Denies head injury or loss of consciousness. Patient lives alone. Denies alcohol use or other drug use at home. He denies dizziness or room spinning, states he generally feels unsteady on his feet. He has a past medical history of debility with falls, history of fall with prior thoracic compression fracture, chronic severe benign positional vertigo, alcohol abuse, type 2 diabetes mellitus with diabetic neuropathy, chronic kidney disease stage II, CAD with history of CABG, hypertension, hyperlipidemia. Past Medical History Past Medical History (Chronic Problems): Chronic Problems CAD (coronary artery disease) (Chronic) Vertigo (Chronic) DM2 (diabetes mellitus, type 2) (Chronic) Allergies Ieximdf-Xcp-Utv Reductase Inhibitor Allergy (Verified 07/28/19 15:04) Swelling of joints Home Medications: Ambulatory Orders Medication Instructions Recorded Glipizide 5 mg PO DAILY 12/22/18 Losartan Potassium [Cozaar] 50 mg PO DAILY 07/27/19 Surgical History: coronary bypass surgery Psychiatric History: No pertinent psych hx Lives: Alone Smoking Status: Never smoker Alcohol: Heavy Drugs: None - *Family History Paternal History Items: Heart Disease Maternal History Items: - - Denies maternal cardiac history. Review of Systems Constitutional: Denies: Chills, Fever, Weight Change HEENT: Denies: Head Aches, Sinus Congestion, Sinus Drainage Cardiovascular: Denies: Chest Pain, Palpitations Respiratory: Denies: Cough, Shortness of breath at rest, Sputum production Gastrointestinal: Denies: Abdominal Pain, Nausea, Vomiting Genitourinary: Denies: Dysuria Musculoskeletal: Denies: Joint Pain, Joint Tenderness Skin: Denies: Rash, Wounds Neurological: Reports: Balance problems. Denies: Blurred vision, Slurred speech, Focal weakness, Numbness, Tingling Psychiatric: Denies: Anxiety, Depression, Homicidal Ideations, Suicidal Ideations Hematologic/ Lymphatic: Denies: Easy Bruising, Easy Bleeding VTE Information - Inpt Only VTE Present on Admission: No VTE Mechan Device Prophylaxis: None VTE Pharm Prophylaxis ordered?: Yes Patient Problems: Active and Suspected Problems Frequent falls (Acute) - Physical Exam Vitals/I&O's: Vital Signs Temp Pulse Resp BP Pulse Ox 98 F 104 H 19 H 131/84 H 97 07/28/19 14:33 07/28/19 14:33 07/28/19 14:33 07/28/19 14:33 07/28/19 14:33 Oxygen Delivery Method Room Air Weight: 224 lb 3.362 oz Body Mass Index (BMI) 32.1 Finger Stick Blood Glucose 138 Intake and Output for Last 24 Hours 07/26/19 07/27/19 07/28/19 23:59 23:59 23:59 Intake Total 1000 / 1000 Balance 1000 / 1000 General: Alert, Oriented x3, Cooperative HEENT: Atraumatic, PERRLA, EOMI, Normocephalic Neck: Supple, No JVD, Negative Carotid Bruits Lungs: Clear to auscultation, Normal air movement Cardiovascular: Regular rate, Regular Rhythm, Normal S1, Normal S2, No murmurs Abdomen: Bowel Sounds Present, Soft, Non Tender, Non-Distended Extremities: No clubbing, No cyanosis, No edema, Capillary Refill Less than 3 Seconds Skin: No rashes, No breakdown, - - Generalized abrasions and bruising on extremities, face and back. Musculoskeletal: No Tenderness to Palpation of Joints or Extremities Neurological: Cranial nerves II-XII grossly intact, Neuro grossly intact Psych/Mental Status: Normal Affect, Appropriate Laboratory Results 07/28/19 11:15: WBC 14.8 H, RBC 4.87, Hgb 15.2, Hct 43.4, MCV 89.1, MCH 31.2, MCHC 35.0, RDW Std Deviation 43.4, RDW Coeff of Fred 13.4, Plt Count 203, MPV 11.1, Immature Gran % (Auto) 0.300, Neut % (Auto) 76.3 H, Lymph % (Auto) 14.5 L, [place] % (Auto) 7.4, Eos % (Auto) 1.1, Baso % (Auto) 0.4, Absolute Neuts (auto) 11.3 H, Absolute Lymphs (auto) 2.14, Nucleated RBC % 0 07/28/19 11:15: Sodium 136, Potassium 3.3 L, Chloride 100, Carbon Dioxide 26.0, Anion Gap 10, BUN 9, Creatinine 0.80, Estim Creat Clear Calc 95.05, Est GFR (MDRD) Af Amer 125, Est GFR (MDRD) Non-Af 103, BUN/Creatinine Ratio 11.3, Glucose 131 H, Calcium 8.7, Total Bilirubin 1.20 H, AST 30, ALT 56, Alkaline Phosphatase 134 H, Total Protein 7.0, Albumin 3.6, Globulin 3.4, Albumin/Globulin Ratio 1.1 Current Medications Influenza Virus Vaccine Quadrival (Flucelvax /Fluzone [id number]) 0.5 ml IM .ONCE ONE Stop: 07/29/19 10:01 Sodium Chloride () 10 - 40 ml IV UD PRN PRN Reason: SALINE FLUSH Assessment/Plan All Active Problems Post concussion syndrome (Resolved) Frequent falls (Acute) CANDI (acute kidney injury) (Resolved) Hypoglycemia (Resolved) Rhabdomyolysis (Resolved) 1. Debility/falls, History of falls with prior thoracic compression fracture- PT/OT. Fall precautions. CM consult for DC planning. Check tox screen/ETOH level. 2. Chronic severe benign positional vertigo-evaluation by neurology in the past. PRN meclizine. 3. History of alcohol abuse-patient has had elevated alcohol levels during multiple ER visits. Encourage cessation. 4. Type 2 diabetes mellitus with diabetic neuropathy-on glipizide. Check hemoglobin A1c. Accu-Cheks with sliding scale insulin. 5. Chronic kidney disease stage II-stable. 6. CAD with history of CABG-no longer on aspirin? Allergy to statin. 7. Hypertension-stable, continue losartan regimen. 8. Hyperlipidemia-allergy to statins. DVT prophylaxis-Lovenox subcu This patient was seen by REYNALDO Olvera under the supervision of Dr. Quintainlla. <Emanuel Quintanilla F - Last Filed: 07/28/19 19:30> History of Present Illness The patient is a 63 year old M [] Past Medical History Allergies Hjebvcf-Mjr-Azb Reductase Inhibitor Allergy (Verified 07/28/19 15:04) Swelling of joints - Physical Exam Vitals/I&O's: Vital Signs Temp Pulse Resp BP Pulse Ox 98.4 F 106 H 18 142/78 H 98 07/28/19 16:30 07/28/19 16:30 07/28/19 16:30 07/28/19 16:30 07/28/19 16:30 Oxygen Delivery Method Room Air Weight: 220 lb 3.869 oz Body Mass Index (BMI) 31.6 Finger Stick Blood Glucose 138 Intake and Output for Last 24 Hours 07/26/19 07/27/19 07/28/19 23:59 23:59 23:59 Intake Total 1400 / 1400 Balance 1400 / 1400 Laboratory Results 07/28/19 11:15: WBC 14.8 H, RBC 4.87, Hgb 15.2, Hct 43.4, MCV 89.1, MCH 31.2, MCHC 35.0, RDW Std Deviation 43.4, RDW Coeff of Fred 13.4, Plt Count 203, MPV 11.1, Immature Gran % (Auto) 0.300, Neut % (Auto) 76.3 H, Lymph % (Auto) 14.5 L, [place] % (Auto) 7.4, Eos % (Auto) 1.1, Baso % (Auto) 0.4, Absolute Neuts (auto) 11.3 H, Absolute Lymphs (auto) 2.14, Nucleated RBC % 0 07/28/19 11:15: Sodium 136, Potassium 3.3 L, Chloride 100, Carbon Dioxide 26.0, Anion Gap 10, BUN 9, Creatinine 0.80, Estim Creat Clear Calc 95.05, Est GFR (MDRD) Af Amer 125, Est GFR (MDRD) Non-Af 103, BUN/Creatinine Ratio 11.3, Glucose 131 H, Calcium 8.7, Total Bilirubin 1.20 H, AST 30, ALT 56, Alkaline Phosphatase 134 H, Total Protein 7.0, Albumin 3.6, Globulin 3.4, Albumin/Glob ulin Ratio 1.1 07/28/19 16:31: POC Glucose 187 H Current Medications Acetaminophen (Tylenol) 650 mg PO Q6H PRN PRN PRN Reason: Pain Score 1-10/Temp > 100.7 F Enoxaparin Sodium (Lovenox) 40 mg SC DAILY ADEN Glucagon () 1 mg IM .X1 PRN PRN Reason: Hypoglycemia Dextrose (Dextrose 10%-Water) 250 mls @ 999 mls/hr IV .Q16M PRN; Protocol PRN Reason: HYPOGLYCEMIA Insulin Human Lispro (Humalog Kwikpen (Bkc)) 0 unit SC ACHS ADEN; Protocol Last Admin: 07/28/19 17:11 Dose: Not Given Documented by: Nutritional Formula (Lactose Free) (Glucerna Shake) 120 ml PO 4X/DAY ADEN Code Visit Addendum: Dr. Quintanilla I personally examined the patient and reviewed the chart. I agree with the above. 63-year-old male with a history of CAD presents with frequent falls. This is not new however yesterday he presented to the ER because he had a fall that caused some facial trauma, imaging at that time was negative for any head bleeds or fractures and he did not want to stay for admission to go to rehab facility. He was sent home from the ER with home health and home PT. He presents today because of another fall. He is now ready to be admitted since he is continuing to fall and has an inability to complete his ADLs. He does have a history of noncompliance, as well as alcohol abuse. He says that he has not been drinking recently. Of note his leukocytosis is 14.8 however he is afebrile no signs of infection this is likely stress related to his frequent falls and microtrauma's. OBSV E&M: [id number] Initial observation care L2
[2019-07-28 16:24] VITALS: BMI 31.6
[2019-07-28 16:30] VITALS: BP 142/78; PULSE 106; RESP 18; TEMP 36.9; O2SAT 98
[2019-07-28 17:05] LABS: Bedside Glucose 187 mg/dL (70-110)
[2019-07-28 21:52] VITALS: BP 154/84; PULSE 93; RESP 18; TEMP 36.5; O2SAT 98
[2019-07-28] MEDS: Insulin Lispro 100 UNIT/ML INSULN.PEN SC (22:16)
[2019-07-28] MEDS: Glucerna Shake 120 ML LIQUID PO (22:17)
[2019-07-28 22:26] LABS: Bedside Glucose 160 mg/dL (70-110)
[2019-07-28 22:50] LABS: Amphetamine Urine VISTA NEGATIVE (<1000 ng/mL); Barbiturate Urine VISTA NEGATIVE (< 200 ng/mL); Benzodiazepine Urine VISTA NEGATIVE (< 200 ng/mL); Cocaine Urine VISTA NEGATIVE (< 300 ng/mL); Ecstacy Urine VISTA NEGATIVE (< 500 ng/mL); Methadone Urine VISTA NEGATIVE (< 300 ng/mL); PCP Urine VISTA NEGATIVE (< 25 ng/mL); THC Urine VISTA NEGATIVE (< 50 ng/mL); Vista UDS pH Range 6
[2019-07-29 04:14] VITALS: BP 153/75; PULSE 99; RESP 18; TEMP 36.9; O2SAT 99
[2019-07-29] MEDS: Insulin Lispro 100 UNIT/ML INSULN.PEN SC ×4 (06:36→22:04)
[2019-07-29 06:37] LABS: Absolute Lymphocyte Count 1.58 X10^3/uL (0.83-4.51); Absolute Neutrophil Count 6.3 X10^3/uL (2.0-7.7); Basophil# 0.03 X10^3/uL; Basophil% 0.3 % (0-1); Eosinophil# 0.18 X10^3/uL; Eosinophils% 2.1 % (0-5); Hematocrit 45.2 % (40-54); Hemoglobin 15.5 g/dL (13.0-16.5); Lymphocyte # 1.58 X10^3/ul (4.0); Lymphocyte % 18.2 % (19-41); Mean Corp Hgb Conc 34.3 g/dL (32-36); Mean Corpuscular Hgb 31.1 pg (27.0-32.0); Mean Corpuscular Volume 90.8 fL (80-94); Mean Platelet Vol. 11.3 fl (6.2-12.0); Monocyte# 0.59 X10^3/uL; Monocyte% 6.8 % (0-10); NRBC Flagged by Analyzer 0 % (0-5); Neutrophil # 6.26 X10^3/uL (2.7-7.7); Platelet Count 201 K/mm3 (150-450); RBC Distribution Width CV 13.2 % (11.6-14.6); Red Blood Count 4.98 M/mm3 (4.6-6.2); White Blood Count 8.7 K/mm3 (4.4-11.0)
[2019-07-29 06:50] LABS: Bedside Glucose 200 mg/dL (70-110)
[2019-07-29 07:40] VITALS: BP 149/90; PULSE 87; RESP 18; TEMP 36.6; O2SAT 97
[2019-07-29 09:39] VITALS: RESP 18; O2SAT 97
--- NOTE | 2019-07-29 10:26 | PCM.PROGNOTE ---
Patient Problems: Active and Suspected Problems Frequent falls (Acute) Subjective: Patient seen and examined. Continues to complain of weakness and unsteadiness with walking. Agreeable to SNF for further rehab. - Physical Exam Vitals/I&O's: Vital Signs Temp Pulse Resp BP Pulse Ox 97.8 F 87 18 149/90 H 97 07/29/19 07:40 07/29/19 07:40 07/29/19 09:39 07/29/19 07:40 07/29/19 09:39 Oxygen Delivery Method Room Air Weight: 220 lb 3.869 oz Body Mass Index (BMI) 31.6 Finger Stick Blood Glucose 138 Intake and Output for Last 24 Hours 07/27/19 07/28/19 07/29/19 23:59 23:59 23:59 Intake Total 1640 / 1640 600 / 600 Output Total 300 / 300 550 / 550 Balance 1340 / 1340 50 / 50 General: Alert, Oriented x3, Cooperative HEENT: Atraumatic, PERRLA, EOMI, Normocephalic Neck: Supple, No JVD, Negative Carotid Bruits Lungs: Clear to auscultation, Normal air movement Cardiovascular: Regular rate, Regular Rhythm, Normal S1, Normal S2, No murmurs Abdomen: Bowel Sounds Present, Soft, Non Tender, Non-Distended Extremities: No clubbing, No cyanosis, No edema, Capillary Refill Less than 3 Seconds Skin: No rashes, No breakdown, - - Generalized abrasions and bruising on extremities, face and back. Musculoskeletal: No Tenderness to Palpation of Joints or Extremities Neurological: Cranial nerves II-XII grossly intact, Neuro grossly intact Psych/Mental Status: Normal Affect, Appropriate Laboratory Results 07/28/19 11:15: WBC 14.8 H, RBC 4.87, Hgb 15.2, Hct 43.4, MCV 89.1, MCH 31.2, MCHC 35.0, RDW Std Deviation 43.4, RDW Coeff of Fred 13.4, Plt Count 203, MPV 11.1, Immature Gran % (Auto) 0.300, Neut % (Auto) 76.3 H, Lymph % (Auto) 14.5 L, [place] % (Auto) 7.4, Eos % (Auto) 1.1, Baso % (Auto) 0.4, Absolute Neuts (auto) 11.3 H, Absolute Lymphs (auto) 2.14, Nucleated RBC % 0 07/28/19 11:15: Sodium 136, Potassium 3.3 L, Chloride 100, Carbon Dioxide 26.0, Anion Gap 10, BUN 9, Creatinine 0.80, Estim Creat Clear Calc 95.05, Est GFR (MDRD) Af Amer 125, Est GFR (MDRD) Non-Af 103, BUN/Creatinine Ratio 11.3, Glucose 131 H, Calcium 8.7, Total Bilirubin 1.20 H, AST 30, ALT 56, Alkaline Phosphatase 134 H, Total Protein 7.0, Albumin 3.6, Globulin 3.4, Albumin/Globulin Ratio 1.1 07/28/19 16:31: POC Glucose 187 H 07/28/19 22:05: Urine Opiates Screen NEGATIVE, Urine Methadone Screen NEGATIVE, Ur Barbiturates Screen NEGATIVE, Ur Phencyclidine Scrn NEGATIVE, Ur Amphetamines Screen NEGATIVE, U Methamphetamin-MDMA NEGATIVE, U Benzodiazepines Scrn NEGATIVE, Urine Cocaine Screen NEGATIVE, U Cannabinoids Screen NEGATIVE, Ur Drug Screen Comment 07/28/19 22:10: POC Glucose 160 H 07/29/19 06:26: WBC 8.7, RBC 4.98, Hgb 15.5, Hct 45.2, MCV 90.8, MCH 31.1, MCHC 34.3, RDW Std Deviation 44.0 H, RDW Coeff of Fred 13.2, Plt Count 201, MPV 11.3, Immature Gran % (Auto) 0.600, Neut % (Auto) 72.0 H, Lymph % (Auto) 18.2 L, [place] % (Auto) 6.8, Eos % (Auto) 2.1, Baso % (Auto) 0.3, Absolute Neuts (auto) 6.3, Absolute Lymphs (auto) 1.58, Nucleated RBC % 0 07/29/19 06:31: POC Glucose 200 H Current Medications Acetaminophen (Tylenol) 650 mg PO Q6H PRN PRN PRN Reason: Pain Score 1-10/Temp > 100.7 F Enoxaparin Sodium (Lovenox) 40 mg SC DAILY ADEN Glucagon () 1 mg IM .X1 PRN PRN Reason: Hypoglycemia Dextrose (Dextrose 10%-Water) 250 mls @ 999 mls/hr IV .Q16M PRN; Protocol PRN Reason: HYPOGLYCEMIA Insulin Human Lispro (Humalog Kwikpen (Bkc)) 0 unit SC ACHS ADEN; Protocol Last Admin: 07/29/19 06:36 Dose: 4 units Documented by: Nutritional Formula (Lactose Free) (Glucerna Shake) 120 ml PO 4X/DAY [facility] Last Admin: 07/28/19 22:17 Dose: 120 ml Documented by: Medical Necessity - Tobacco Use Smoking Status: Never smoker Assessment/Plan All Active Problems Post concussion syndrome (Resolved) Frequent falls (Acute) CANDI (acute kidney injury) (Resolved) Hypoglycemia (Resolved) Rhabdomyolysis (Resolved) 1. Debility/falls, History of falls with prior thoracic compression fracture- PT/OT. Fall precautions. CM consult for DC planning. Tox screen negative. Patient agreeable to SNF at discharge. Pending pre-cert. falls in the past found to be secondary to BPPV, diabetic neuropathy and alcohol use. 2. Chronic severe benign positional vertigo-evaluation by neurology in the past. PRN meclizine. 3. History of alcohol abuse-patient has had elevated alcohol levels during multiple ER visits. Encourage cessation. 4. Type 2 diabetes mellitus with diabetic neuropathy-on glipizide. Accu-Cheks with sliding scale insulin. 5. Chronic kidney disease stage II-stable. 6. CAD with history of CABG-no longer on aspirin? Allergy to statin. 7. Hypertension-stable, continue losartan regimen. 8. Hyperlipidemia-allergy to statins. DVT prophylaxis-Lovenox subcu This patient was seen by REYNALDO Olvera under the supervision of Dr. Bo.
[2019-07-29] MEDS: Glucerna Shake 120 ML LIQUID PO ×4 (10:52→22:05)
[2019-07-29] MEDS: Enoxaparin 40 MG/0.4 ML Syringe SC (10:52)
[2019-07-29 10:55] LABS: Bedside Glucose 261 mg/dL (70-110)
[2019-07-29 11:19] LABS: Alcohol, Blood (Medical)-Serum < 3.0 mg/dL
--- NOTE | 2019-07-29 13:31 | NURSING ---
Student documentation reviewed.
[2019-07-29 15:40] VITALS: BP 151/96; PULSE 82; RESP 18; TEMP 36.6; O2SAT 98
--- NOTE | 2019-07-29 15:50 | CASEMGMT ---
Social Work Note SW received call from pt's son Jacky who lives in [place]. Pt gave this worker permission to speak to his son Jacky. Jacky states that he would like pt to go to SNF and then transition to either machine long goods helper or assisted living. SW explained Medicare rule and guidelines and private pay for assisted living. SW informed Jacky that this worker can talk to physician to determine if pt has medical reason to stay at [facility]. Jacky states understanding, provided number [phone]. Pt has medical reason to stay at [facility] today. SW in to speak with pt. SW introduced self and role at [facility]. Confusion is noted. Pt states agreeable to SNF placement and would like this worker to call his son Jacky to discuss SNF placement. SW placed a call to Jacky. Jacky states that he called APS in [place] who will be sending him resources and also has family members who live in the area reviewing nursing homes. SW informed Jacky to continue to review SNF and continue to speak with his family and to have three choices of SNF by tomorrow and then give this worker a call back. Jacky states understanding. Plan: SNF [facility] SAMPLE CUTTER, MANAGER INTENSIVE CARE UNIT
[2019-07-29 15:51] LABS: Bedside Glucose 258 mg/dL (70-110)
[2019-07-29 22:01] VITALS: BP 155/92; PULSE 76; RESP 18; TEMP 36.6; O2SAT 96
[2019-07-29 22:36] LABS: Bedside Glucose 237 mg/dL (70-110)
[2019-07-30 04:01] VITALS: BP 155/96; PULSE 66; RESP 18; TEMP 36.9; O2SAT 99
[2019-07-30] MEDS: Insulin Lispro 100 UNIT/ML INSULN.PEN SC ×4 (06:49→21:59)
[2019-07-30 06:56] LABS: Bedside Glucose 220 mg/dL (70-110)
[2019-07-30 10:00] VITALS: BP 148/90; PULSE 78; RESP 18; TEMP 36.6; O2SAT 99
[2019-07-30] MEDS: Glucerna Shake 120 ML LIQUID PO ×4 (10:14→21:59)
[2019-07-30] MEDS: Losartan Potassium 50 MG Tablet PO (10:14)
[2019-07-30] MEDS: Enoxaparin 40 MG/0.4 ML Syringe SC (10:15)
[2019-07-30] MEDS: glipiZIDE 5 MG Tablet PO (10:21)
--- NOTE | 2019-07-30 10:23 | CASEMGMT ---
Social Work Note SW in to speak with pt and pt's Jeni present in room. SW asked Jeni if a decision has been made regarding SNF. Jeni states her daughter is coming in later today and a decision will be made but states she thinks they are leaning towards [facility]. Jeni asked that this worker come back later this afternoon when her daughter is present to get final decision. SW placed a call to [facility] and left message for Patsy stating pt may be coming to [facility], that pt's family is going to decide today. Plan: SNF [facility] CARDIAC CATH LAB TECHNOLOGIST, ELECTRIC GOLF CART REPAIRERS
--- NOTE | 2019-07-30 10:30 | CASEMGMT ---
Social Work Note OSWALDO received call from pt's son Jacky and Jacky states he spoke with Tk from [place] and Mouna from [facility]. Jacky states Tk will be at [facility] today to speak to this worker. OSWALDO explained that [place] is RESIDENTIAL so pt will not get as much therapy as pt would get if pt went to [facility] or different SNF. Jacky states understanding, is agreeable to this worker sending referral to [facility]. OSWALDO spoke with Tk from [place]. Tk asked this worker if this worker knows about pt's financials as he spoke with pt's son Jacky and Jacky didn't know about pt's financials. OSWALDO informed Tk that Medicare is listed for pt but that's all that this worker knows. Tk states that per Jacky he thinks pt only gets social security a month so pt likely won't be able to afford private pay for ZAN. Tk states that going to [facility] first for rehabilitation would be appropriate and then having pt apply for medicaid and seeing if pt qualifies for medicaid and then looking in to terminal make up operator. SW to send referral to [facility]. Plan: SNF [facility] SUPERVISOR GATE SERVICES, PLUMBING AND HEATING MECHANIC
[2019-07-30 10:35] LABS: Bedside Glucose 268 mg/dL (70-110)
--- NOTE | 2019-07-30 11:49 | CASEMGMT ---
Social Work Per CARISA Sanchez pt son would like [facility] Referral faxed to JONNATHAN and VM left with Mouna requesting pt information be reviewed and let SW know if they can accept. SW will await return call and decision. KEITH Chu
--- NOTE | 2019-07-30 14:27 | CASEMGMT ---
Addendum entered by [facility] 07/30/19 15:29: SW received message from Mouna at [facility] stating because pt may need halfway placement at SNF pt would be better off going to SNF that has regulatory specialist beds available as [facility] doesn't have any available at this time. OSWALDO placed a call to pt's son Jacky and updated him that [facility] is not able to accept pt due to pt may needing regulatory specialist and [facility] doesn't have any halfway beds available at this time. Jacky states that is irritating because he was told by Mouna that [facility] could accommodate skilled. Jacky states he is only thinking about the now at this this time and right now pt needs skilled/therapy. Jacky states he will need to call additional facilities and speak to other family members tonight to have another choice for SNF. Jacky states he will call this worker tomorrow with additional SNF choices. Plan: SNF Saturday Original Note: Social Work Note SW placed a call to Mouna at [facility] and left message regarding referral. SW waiting for call back. Plan: SNF pending acceptance [facility] PROPERTY MANAGER, RECOOPERER
--- NOTE | 2019-07-30 15:04 | PCM.PN.HOSP ---
Patient Problems: Active and Suspected Problems Frequent falls (Acute) Reason for Visit: Weakness/falls Subjective: Pt very weak, has not been up at all today. Wants SNF placement. No SOB/cough. No fever/chills. No CP, dizziness/LH, palp. Vitals/I&O's: Vital Signs Temp Pulse Resp BP Pulse Ox 98.4 F 66 18 155/96 H 99 07/30/19 04:01 07/30/19 04:01 07/30/19 04:01 07/30/19 04:01 07/30/19 04:01 Oxygen Delivery Method Room Air Weight: 220 lb 3.869 oz Body Mass Index (BMI) 31.6 Finger Stick Blood Glucose 138 Intake and Output for Last 24 Hours 07/28/19 07/29/19 07/30/19 23:59 23:59 23:59 Intake Total 1640 / 1640 600 / 1100 1050 / 1050 Output Total 300 / 300 550 / 1900 2350 / 2350 Balance 1340 / 1340 50 / -800 -1300 / -1300 General: Alert, Oriented x3, Cooperative HEENT: Atraumatic, PERRLA, EOMI, Normocephalic Neck: Supple, No JVD, Negative Carotid Bruits Lungs: Clear to auscultation, Normal air movement Cardiovascular: Regular rate, No murmurs Abdomen: Bowel Sounds Present, Soft, Non Tender Extremities: No edema, Capillary Refill Less than 3 Seconds Skin: No rashes, No breakdown Musculoskeletal: No Tenderness to Palpation of Joints or Extremities Neurological: Cranial nerves II-XII grossly intact Psych/Mental Status: Normal Affect, Appropriate, Alert and oriented to time, place, person, mood and affect Laboratory Results 07/29/19 15:28: POC Glucose 258 H 07/29/19 22:03: POC Glucose 237 H 07/30/19 06:46: POC Glucose 220 H 07/30/19 10:31: POC Glucose 268 H Current Medications Acetaminophen (Tylenol) 650 mg PO Q6H PRN PRN PRN Reason: Pain Score 1-10/Temp > 100.7 F Enoxaparin Sodium (Lovenox) 40 mg SC DAILY [facility] Last Admin: 07/30/19 10:15 Dose: 40 mg Documented by: [facility] Last Admin: 07/30/19 10:21 Dose: 5 mg Documented by: Glucagon () 1 mg IM .X1 PRN PRN Reason: Hypoglycemia Dextrose (Dextrose 10%-Water) 250 mls @ 999 mls/hr IV .Q16M PRN; Protocol PRN Reason: HYPOGLYCEMIA Insulin Human Lispro (Humalog Kwikpen (Bkc)) 0 unit SC ACHS [facility]; Protocol Last Admin: 07/30/19 10:32 Dose: 6 units Documented by: Losartan Potassium (Cozaar) 50 mg PO DAILY [facility] Last Admin: 07/30/19 10:14 Dose: 50 mg Documented by: Nutritional Formula (Lactose Free) (Glucerna Shake) 120 ml PO 4X/DAY [facility] Last Admin: 07/30/19 10:14 Dose: 120 ml Documented by: Medical Necessity - Tobacco Use Smoking Status: Never smoker Assessment/Plan All Active Problems Post concussion syndrome (Resolved) Frequent falls (Acute) CANDI (acute kidney injury) (Resolved) Hypoglycemia (Resolved) Rhabdomyolysis (Resolved) 1. Debility falls - ongoing weakness. old thoracic compression fx. PTOT. SNF placement. 2. BPPV - chronic - prn meclizine. 3. Hx alcohol abuse - currently no w/d symtoms. 4. T2DM - glipizide, SSI 5. CKDII - BUN/Cr stable at presentation. 6. CAD, prior CABG - off aspirin for unclear reasons, statin allergic. continue ARB, not on beta jeet. 7 HTN - mildly elevated. trend. 8. HLD - allergic to statins. DVT ppx: lovenox DC planning: SNF This patient was seen by Mahad Owen PA-C under the supervision of Doctor Bo.
[2019-07-30 16:21] LABS: Bedside Glucose 192 mg/dL (70-110)
[2019-07-30 19:27] VITALS: BP 159/92; PULSE 76; RESP 18; TEMP 36.7; O2SAT 99
[2019-07-30 22:00] VITALS: BP 153/89; PULSE 85; RESP 18; TEMP 36.5; O2SAT 96
[2019-07-30 22:30] LABS: Bedside Glucose 188 mg/dL (70-110)
[2019-07-31 05:10] VITALS: BP 138/85; PULSE 67; RESP 18; TEMP 36.8; O2SAT 95
[2019-07-31 06:30] LABS: Bedside Glucose 234 mg/dL (70-110)
[2019-07-31] MEDS: Insulin Lispro 100 UNIT/ML INSULN.PEN SC ×4 (06:49→22:11)
[2019-07-31 09:40] VITALS: BP 131/81; PULSE 88; RESP 16; TEMP 36.4; O2SAT 96
[2019-07-31] MEDS: Enoxaparin 40 MG/0.4 ML Syringe SC (09:44)
[2019-07-31] MEDS: Losartan Potassium 50 MG Tablet PO (09:44)
[2019-07-31] MEDS: Glucerna Shake 120 ML LIQUID PO ×4 (09:45→22:11)
[2019-07-31] MEDS: glipiZIDE 5 MG Tablet PO (09:46)
--- NOTE | 2019-07-31 10:03 | PN_ITS ---
Patient Problems: Active and Suspected Problems Frequent falls (Acute) Subjective: No issues overnight doing well. Vitals/I&O's: Vital Signs Temp Pulse Resp BP Pulse Ox 98.3 F 67 18 138/85 H 95 07/31/19 05:10 07/31/19 05:10 07/31/19 05:10 07/31/19 05:10 07/31/19 05:10 Oxygen Delivery Method Room Air Weight: 220 lb 3.869 oz Body Mass Index (BMI) 31.6 Finger Stick Blood Glucose 138 Intake and Output for Last 24 Hours 07/29/19 07/30/19 07/31/19 23:59 23:59 23:59 Intake Total 600 / 1100 1050 / 2250 1700 / 1700 Output Total 550 / 1900 2350 / 3650 1850 / 1850 Balance 50 / -800 -1300 / -1400 -150 / -150 General: Alert, Oriented x3, Cooperative, No apparent distress HEENT: PERRLA, EOMI, Normocephalic, - - Multiple facial abrasions from his fall Oral: Moist Mucosa Neck: Supple, No JVD Lungs: Clear to auscultation, Normal air movement, No rhonchi, No wheeze, No rales Cardiovascular: Regular rate, Regular Rhythm, Normal S1, Normal S2, No murmurs Abdomen: Soft, Non Tender, Non-Distended, No Hepato-splenomegaly Extremities: No edema, Capillary Refill Less than 3 Seconds Skin: No rashes, No breakdown Neurological: Neuro grossly intact, Sensory exam intact to light touch and pain Psych/Mental Status: Normal Affect, Appropriate Laboratory Results 07/30/19 10:31: POC Glucose 268 H 07/30/19 16:09: POC Glucose 192 H 07/30/19 21:53: POC Glucose 188 H 07/31/19 06:23: POC Glucose 234 H Current Medications Acetaminophen (Tylenol) 650 mg PO Q6H PRN PRN PRN Reason: Pain Score 1-10/Temp > 100.7 F Enoxaparin Sodium (Lovenox) [address] [facility] Last Admin: 07/31/19 09:44 Dose: 40 mg Documented by: [facility] Last Admin: 07/31/19 09:46 Dose: 5 mg Documented by: Glucagon () 1 mg IM .X1 PRN PRN Reason: Hypoglycemia Dextrose (Dextrose 10%-Water) 250 mls @ 999 mls/hr IV .Q16M PRN; Protocol PRN Reason: HYPOGLYCEMIA Insulin Human Lispro (Humalog Lilisalvador (Bkc)) [address] [facility]; Protocol Last Admin: 07/31/19 06:49 Dose: 4 units Documented by: Losartan Potassium (Cozaar) [address] [facility] Last Admin: 07/31/19 09:44 Dose: 50 mg Documented by: Nutritional Formula (Lactose Free) (Glucerna Shake) 120 ml PO 4X/DAY [facility] Last Admin: 07/31/19 09:45 Dose: 120 ml Documented by: Medical Necessity - Tobacco Use Smoking Status: Never smoker Assessment/Plan All Active Problems Post concussion syndrome (Resolved) Frequent falls (Acute) CANDI (acute kidney injury) (Resolved) Hypoglycemia (Resolved) Rhabdomyolysis (Resolved) 1. Debility with frequent falls and history of a thoracic compression fracture/BPPV -PT/OT -Plan for discharge tomorrow to long term facility for rehab -Continue with meclizine as needed 2. DM 2/CKD 2 -We will continue with sliding scale insulin Accu-Cheks AC at bedtime -He is also been continued on his glipizide -Creatinine on admission was stable 3. CAD status post CABG/HTN/HLD -He is allergic to statins and has not been on an aspirin because of likely fall reasons -Continue with ARB DVT: Lovenox Inpatient E&M: 02724 Subs Hosp L2
--- NOTE | 2019-07-31 10:46 | CASEMGMT ---
Addendum entered by Yina Watson 07/31/19 11:52: OSWALDO received call from Emelia at [facility] stating they are able to accept pt tomorrow. Emelia states fax for [facility] is [phone]. OSWALDO placed a call to pt's son Jacky and updated him that [facility] is able to accept pt tomorrow. Jacky states understanding, states he will be flying to [place] tomorrow and should be at [facility] by tomorrow morning. OSWALDO explained transportation options for pt. OSWALDO also encouraged Jacky to have pt apply for Medicaid once pt arrives to [facility] and explained that staff will be able to assist pt with completing application. OSWALDO completed [facility] in [place]. Original placed on pt's chart with green sheet and transport forms. Plan: [facility] skilled Saturday Original Note: Social Work Note SW received message from pt's son Jacky stating next choice for SNF is [facility] and then [facility] if [facility] not able to accept. OSWALDO faxed referral to [facility]. Plan: SNF tomorrow pending acceptance Yina Watson ROD BUSTER, CIGAR TOBACCO REHANDLER
[2019-07-31 10:59] LABS: Anion Gap 7 (5-15); BUN 9 mg/dL (7-18); BUN/Creat Ratio 8.7 RATIO (10-20); Calcium,Total 8.9 mg/dL (8.5-10.1); Chloride 100 mmol/L (98-107); Creatinine, Serum 1.03 mg/dL (0.70-1.30); EST Glomerular Filtration Rate 77 mL/min (>60); Est Glom Filt Rate - Afr Amer 93 mL/min (>60); Estimated Creatinine Clearance 73.83 ml/min; Glucose 363 mg/dL (74-106); Magnesium 1.9 mg/dL (1.6-2.6); Phosphorus 3.1 mg/dL (2.5-4.9); Potassium 4.1 mmol/L (3.5-5.1); Sodium Level 136 mmol/L (136-145)
[2019-07-31 11:40] LABS: Bedside Glucose 354 mg/dL (70-110)
[2019-07-31 14:30] VITALS: BP 140/80; PULSE 85; RESP 16; TEMP 36.9; O2SAT 97
[2019-07-31 17:25] LABS: Bedside Glucose 206 mg/dL (70-110)
[2019-07-31 20:09] VITALS: BP 142/79; PULSE 83; RESP 18; TEMP 36.9; O2SAT 96
[2019-07-31 22:20] LABS: Bedside Glucose 262 mg/dL (70-110)
[2019-08-01 02:09] VITALS: BP 140/89; PULSE 66; RESP 18; TEMP 36.7; O2SAT 97
[2019-08-01] MEDS: Insulin Lispro 100 UNIT/ML INSULN.PEN SC (06:46)
[2019-08-01 06:56] LABS: Bedside Glucose 236 mg/dL (70-110)
[2019-08-01 07:40] VITALS: BP 139/90; PULSE 65; RESP 14; TEMP 36.8; O2SAT 97
[2019-08-01] MEDS: Losartan Potassium 50 MG Tablet PO (07:43)
[2019-08-01] MEDS: glipiZIDE 5 MG Tablet PO (07:43)
[2019-08-01] MEDS: Enoxaparin 40 MG/0.4 ML Syringe SC (07:43)
[2019-08-01] MEDS: Glucerna Shake 120 ML LIQUID PO (07:43)
--- NOTE | 2019-08-01 08:26 | DCINST_ITS ---
- Discharge Diagnoses Current Active Problems: Current Active and Chronic Problems Frequent falls (Acute) You will use the following diet at home:: Calorie/Carbohydrate Controlled (specify 1200, 1400, etc) - 1600 Your food should be the consistency of: Regular Your liquids should be the consistency of: Regular/Thin Discharge Activity: Return to Normal Activity Call your doctor if you observe: Fever of 101 or Higher, Shortness of breath, Dizziness, Fainting spells, Swelling in the ankles, Chest pain, Increased palpitations (irregular heartbeat) Allergies/Adverse Reactions: Allergies Rvqzhnm-Arr-Qme Reductase Inhibitor Allergy (Verified 07/28/19 15:04) Swelling of joints Medications to take at Discharge Glipizide 5 mg PO DAILY 12/22/18 Losartan Potassium [Cozaar] 50 mg PO DAILY 07/27/19 Primary Care Physician: Tushar Martinez MD [Primary Care Provider] - Please follow up with your Primary Care Physician in: 3-5 days Test Results: Test results from this visit will be discussed in further detail at your follow- up appointment, if applicable.
--- NOTE | 2019-08-01 08:56 | PCM.DC.SUM ---
Discharge Date and Diagnosis - Problem List Patient Problems: Active and Suspected Problems Frequent falls (Acute) Date of Admission: 07/28/19 Date of Discharge: 08/01/19 - Primary Discharge Diagnosis Active and Suspected Problems Frequent falls (Acute) - Secondary Discharge Diagnosis Chronic Problems CAD (coronary artery disease) (Chronic) Vertigo (Chronic) DM2 (diabetes mellitus, type 2) (Chronic) Hospital Course and Treatment Imaging Results: Lumbar XR: IMPRESSION: Degenerative changes of the spine. Chronic T12 fracture. If clinically warranted, further evaluation with CT or MRI can be obtained. Consults: None Operations: None, - Procedures: None Summary of Care Provided: Per HPI: The patient is a 63 year old M who presents to the emergency room due to falls. Patient has had recurrent ER visits due to falls. Patient was seen in the emergency room 06/25/2019 due to fall with head injury. He was found to have increased alcohol level at that time. Patient seen in ER yesterday following a fall. He went home with home health and physical therapy at that time. Patient states he chronically feels off balance and has falls at home however this is worsened over the past few days. He complains of left rib pain and back pain. Denies head injury or loss of consciousness. Patient lives alone. Denies alcohol use or other drug use at home. He denies dizziness or room spinning, states he generally feels unsteady on his feet. He has a past medical history of debility with falls, history of fall with prior thoracic compression fracture, chronic severe benign positional vertigo, alcohol abuse, type 2 diabetes mellitus with diabetic neuropathy, chronic kidney disease stage II, CAD with history of CABG, hypertension, hyperlipidemia. Hospital Course: 1. Debility with frequent falls and history of a thoracic compression fracture/BPPV -PT/OT -Plan for discharge today to correction facility for rehab -Continue with meclizine as needed 2. DM 2/CKD 2 -We will continue with sliding scale insulin Accu-Cheks AC at bedtime -He is also been continued on his glipizide, may benefit from the addition of metformin as his creatinine and GFR are normal -Creatinine on admission was stable 3. CAD status post CABG/HTN/HLD -He is allergic to statins and has not been on an aspirin because of likely fall reasons -Continue with ARB Patient Problems: Active and Suspected Problems Frequent falls (Acute) - Physical Exam Vitals/I&O's: Vital Signs Temp Pulse Resp BP Pulse Ox 98.3 F 65 14 139/90 H 97 08/01/19 07:40 08/01/19 07:40 08/01/19 07:40 08/01/19 07:40 08/01/19 07:40 Oxygen Delivery Method Room Air Weight: 220 lb 3.869 oz Body Mass Index (BMI) 31.6 Finger Stick Blood Glucose 138 Intake and Output for Last 24 Hours 07/30/19 07/31/19 08/01/19 23:59 23:59 23:59 Intake Total 1050 / 2250 2500 / 3300 1000 / 1000 Output Total 2350 / 3650 2250 / 2400 980 / 980 Balance -1300 / -1400 250 / 900 General: Alert, Oriented x3, Cooperative, No apparent distress HEENT: PERRLA, EOMI, Normocephalic, - - Multiple facial abrasions from his fall Oral: Moist Mucosa Neck: Supple, No JVD Lungs: Clear to auscultation, Normal air movement, No rhonchi, No wheeze, No rales Cardiovascular: Regular rate, Regular Rhythm, Normal S1, Normal S2, No murmurs Abdomen: Soft, Non Tender, Non-Distended, No Hepato-splenomegaly Extremities: No edema, Capillary Refill Less than 3 Seconds Skin: No rashes, No breakdown Neurological: Neuro grossly intact, Sensory exam intact to light touch and pain Psych/Mental Status: Normal Affect, Appropriate Laboratory Results 07/31/19 10:38: Sodium 136, Potassium 4.1, Chloride 100, Carbon Dioxide 29.0, Anion Gap 7, BUN 9, Creatinine 1.03, Estim Creat Clear Calc 73.83, Est GFR (MDRD) Af Amer 93, Est GFR (MDRD) Non-Af 77, BUN/Creatinine Ratio 8.7 L, Glucose 363 H, Calcium 8.9, Phosphorus 3.1, Magnesium 1.9 07/31/19 11:26: POC Glucose 354 H 07/31/19 16:39: POC Glucose 206 H 07/31/19 22:10: POC Glucose 262 H 08/01/19 06:45: POC Glucose 236 H Current Medications Acetaminophen (Tylenol) 650 mg PO Q6H PRN PRN PRN Reason: Pain Score 1-10/Temp > 100.7 F Enoxaparin Sodium (Lovenox) 40 mg SC DAILY [facility] Last Admin: 08/01/19 07:43 Dose: 40 mg Documented by: Glipizide (Glucotrol) 5 mg PO DAILYCM [facility] Last Admin: 08/01/19 07:43 Dose: 5 mg Documented by: Glucagon () 1 mg IM .X1 PRN PRN Reason: Hypoglycemia Dextrose (Dextrose 10%-Water) 250 mls @ 999 mls/hr IV .Q16M PRN; Protocol PRN Reason: HYPOGLYCEMIA Influenza Virus Vaccine Quadrival (Flucelvax /Fluzone ) 0.5 ml IM .ONCE ONE Stop: 08/01/19 10:01 Last Admin: 08/01/19 07:49 Dose: 0.5 ml Documented by: Insulin Human Lispro (Humalog Kwikpen (Bkc)) 0 unit SC ACHS [facility]; Protocol Last Admin: 08/01/19 06:46 Dose: 4 units Documented by: Losartan Potassium (Cozaar) 50 mg PO DAILY [facility] Last Admin: 08/01/19 07:43 Dose: 50 mg Documented by: Nutritional Formula (Lactose Free) (Glucerna Shake) 120 ml PO 4X/DAY [facility] Last Admin: 08/01/19 07:43 Dose: 120 ml Documented by: Discharge Activity: Return to Normal Activity Call your doctor if you observe: Fever of 101 or Higher, Shortness of breath, Dizziness, Fainting spells, Swelling in the ankles, Chest pain, Increased palpitations (irregular heartbeat) Home Medications: Medications to take at Discharge Glipizide 5 mg PO DAILY 12/22/18 Losartan Potassium [Cozaar] 50 mg PO DAILY 07/27/19 Primary Care Physician: Tushar Martinez MD [Primary Care Provider] - Please follow up with your Primary Care Physician in: 3-5 days Disposition: [facility]dc facility Minutes spent on discharge:: 35 Patient Condition:: Stable Medical Necessity - Tobacco Use Smoking Status: Never smoker Meaningful Use Info Meaningful Use Diagnoses (Choose all that apply): None applicable Inpatient E&M: 83819 Disch Hosp
--- NOTE | 2019-08-01 09:55 | PCM.TXEXTCAR ---
- Diet 07/28/19 16:20 Diet: Calorie Controlled Food consistency:: Regular Liquid Consistency:: Regular/Thin Is pt able to select menu?: No How many daily calories?: 1800 calorie - Wound(s) generalized Wound Type: Skin Tear lower right lip Wound Type: scab right foot--between 4th and 5th toes Wound Type: Abrasion left foot---between 4th and 5th toe Wound Type: Abrasion Left Forearm Wound Type: blister Right lower abdomen Wound Type: Abrasion - Allergies/Procedures Done in Hospital Allergies/Adverse Reactions: Allergies Pssefkp-Uln-Bmi Reductase Inhibitor Allergy (Verified 07/28/19 15:04) Swelling of joints - Type of Care/Length of Stay Estimated LOS: Convalescent Care Less Than 30 days Type of Care Needed: Skilled Rehab Potential: Good Prognosis: Good - Additional Orders/Day of Discharge Day of Discharge: 08/01/19 - Dietary and Speech Recommendations Dietitian Recommendations/Changes: Change to consistent CHO cardiac diet. Discontinue glucerna w/medpass per pt request. - Follow Up Care Primary Care Physician: Tushar Martinez MD [Primary Care Provider] - Please follow up with your Primary Care Physician in: 3-5 days
== END 2019-08-01 11:33 | disposition skilled nursing facility (03) | DRG 149 ==
LOC: ED 14:30 → MS3 14:40
PROVIDERS: Internal Medicine; Nurse Practitioner Family; Admitting Provider Family Medicine; Emergency Provider Emergency Medicine; PCP Family Medicine; Visit Provider Family Medicine
DX: H81.10 Benign paroxysmal vertigo, unspecified ear (principal); R53.81 Other malaise; S22.089D Unspecified fracture of T11-T12 vertebra, subsequent encounter for fracture with routine healing; W19.XXXD Unspecified fall, subsequent encounter; I25.10 Atherosclerotic heart disease of native coronary artery without angina pectoris; E11.40 Type 2 diabetes mellitus with diabetic neuropathy, unspecified; E11.22 Type 2 diabetes mellitus with diabetic chronic kidney disease; I12.9 Hypertensive chronic kidney disease with stage 1 through stage 4 chronic kidney disease, or unspecified chronic kidney disease; N18.2 Chronic kidney disease, stage 2 (mild); E78.5 Hyperlipidemia, unspecified; Z95.1 Presence of aortocoronary bypass graft; F10.10 Alcohol abuse, uncomplicated; Z91.19 Patient's noncompliance with other medical treatment and regimen; Z79.84 Long term (current) use of oral hypoglycemic drugs; Z79.899 Other long term (current) drug therapy; Z23 Encounter for immunization
CPT/HCPCS: 36415; 70450; 72100; 80048; 80053; 80307; 80320; 82962; 83735; 84100; 85025; 85610; 85730; 93005; 97110; 97116; 97162; 97166; 97530; 97535; 97802; 99285; G0008; J7030; 90686; A4216; G0480

== ENCOUNTER 2020-12-20 23:10 | Emergency (ER) | payer MEDICARE, MEDICAID, SELFPAY ==
[2020-12-20 23:11] VITALS: BP 136/84; PULSE 92; RESP 18; TEMP 36.9; O2SAT 96; BMI 36.6
--- NOTE | 2020-12-20 23:27 | RAD_ITS ---
EXAM: XR CHEST, 1 VIEW : 1955 CLINICAL INDICATION: Cough TECHNIQUE: Frontal view of the chest. This report was created using [employer] report generation technology. COMPARISON: 02/24/2019 FINDINGS: LUNGS AND PLEURAL SPACES: Unremarkable. No consolidation or edema. No pneumothorax. No effusion. HEART: Unremarkable. Cardiac silhouette not enlarged. MEDIASTINUM: Central airways and mediastinal contour are unremarkable. BONES/JOINTS: Unremarkable. SOFT TISSUES: Unremarkable. RAD/Chest 1 View (Portable) IMPRESSION: No radiographic evidence of acute cardiopulmonary disease. at 0009 Reported and signed by: Davonte Wade MD Electronically Signed: Davonte Wade MD at 0:08 EDT Tel , Service support ,
--- NOTE | 2020-12-20 23:28 | EKG12_ITS ---
Test Reason : FALL Blood Pressure : / mmHG Vent. Rate : 087 BPM Atrial Rate : 087 BPM P-R Int : 210 ms QRS Dur : 074 ms QT Int : 350 ms P-R-T Axes : 001 088 028 degrees QTc Int : 421 ms Sinus rhythm with 1st degree A-V block Septal infarct , age undetermined Abnormal ECG Confirmed by MADELINE WANG, MARGOT ([id number]), editor index ZOFIA MURPHY ([id number]) on 12/22/2020 9:49:40 AM Referred By: MEREDITH Confirmed By:MARGOT CORREA MD
[2020-12-20 23:53] LABS: Absolute Lymphocyte Count 1.43 X10^3/uL (0.83-4.51); Absolute Neutrophil Count 10.9 X10^3/uL (2.0-7.7); Basophil# 0.07 X10^3/uL; Basophil% 0.5 % (0-1); Eosinophil# 0.17 X10^3/uL; Eosinophils% 1.3 % (0-5); Hematocrit 46.7 % (40-54); Hemoglobin 15.5 g/dL (13.0-16.5); Lymphocyte # 1.43 X10^3/ul (0.83-4.51); Lymphocyte % 10.7 % (19-41); Mean Corp Hgb Conc 33.2 g/dL (32-36); Mean Corpuscular Hgb 29.9 pg (27.0-32.0); Mean Corpuscular Volume 90.2 fL (80-94); Mean Platelet Vol. 10.8 fl (6.2-12.0); Mucous, Urine 0 SEEN /hpf (<or=2+); NRBC Flagged by Analyzer 0 % (0-5); Neutrophil # 10.89 X10^3/uL (2.7-7.7); Neutrophil % 81.1 % (47-70); Platelet Count 222 K/mm3 (150-450); RBC Distribution Width CV 13.1 % (11.6-14.6); RBC Distribution Width SD 43.3 fl (35.1-43.9); Red Blood Cells-Urine 0 SEEN /hpf (0-5); Red Blood Count 5.18 M/mm3 (4.6-6.2); Squamous Epithelial Cells - UA 0 SEEN /hpf (0-5); White Blood Cells 0 SEEN /hpf (0-5); White Blood Count 13.4 K/mm3 (4.4-11.0)
[2020-12-20 23:54] LABS: Color, Urine Yellow (Yellow); Glucose, Dipstick 1000 mg/dl (Normal); Ketone-Dipstick Negative (Negative); Leukocyte Esterase-Dipstick Negative /ul (Negative); Nitrite-Dipstick Negative (Negative); Occult Blood-Urine Negative /ul (Negative); Protein-Dipstick Negative (Negative); Urine Bilirubin Dipstick Negative (Negative); Urine Clarity Clear (Clear); Urine Urobilinogen Normal (Normal)
--- NOTE | 2020-12-21 00:03 | CT_ITS ---
EXAM: CT HEAD WITHOUT INTRAVENOUS CONTRAST : 1955 CLINICAL INDICATION: Fall, confusion TECHNIQUE: Multiple axial images were obtained of the head without intravenous contrast. This CT exam was performed using one or more of the following dose reduction techniques: automated exposure control, adjustment of the mA and/or kV according to patient size, and/or use of iterative reconstruction technique. This report was created using [employer] report generation technology. COMPARISON: 07/27/2019 FINDINGS: BRAIN AND EXTRA-AXIAL SPACES: There is enlargement of the ventricular system and cortical sulci. There is hypoattenuation in the periventricular white matter. No intra- or extra-axial hemorrhage. No evidence of acute infarct. No intracranial mass or mass effect. There is preservation of the brown/white matter interface. Posterior fossa structures are unremarkable. Basal cisterns are patent. BONES/JOINTS: Unremarkable. No discrete lytic or blastic abnormalities. SINUSES: Unremarkable as visualized. Clear. MASTOID AIR CELLS: Unremarkable. Clear. ORBITS: Visualized globes, extraocular muscles, optic nerves and retrobulbar fat appear unremarkable. CT/Brain/Head without Contrast IMPRESSION: 1. No acute intracranial abnormality. There has been no change from the reference examination. 2. Stable underlying senescent changes with small vessel ischemia. Individualized dose optimization techniques were used for this CT. at 0048 Reported and signed by: Davonte Wade MD Electronically Signed: Davonte Wade MD at 0:47 EDT Tel , Service support ,
--- NOTE | 2020-12-21 00:04 | EX.ED.DYSGE1 ---
HPI History of Present Illness Chief Complaint: Fall Informant: patient and EMS Narrative Narrative: Patient is a 65-year-old male who presents to the emergency department from nursing facility after an unwitnessed fall today. Patient is normally alert and oriented x3 but has been confused today. On arrival to the ED patient does not have any complaints. He thinks he might have struck his head but cannot recall. He denies any headache or neck pain. He denies any chest pain, shortness of breath. No abdominal pain or nausea/vomiting. Denies any change in bowel movements or urinary symptoms. He has not had any fevers or chills. Patient is not on any blood thinning medications. [facility] Medical History (Updated 12/21/20 @ 01:[address] Eliezer Brice DO) Alcohol abuse Benign paroxysmal vertigo CKD (chronic kidney disease) stage 2, GFR 60-89 ml/min Diabetes mellitus Hyperlipidemia Hypertension Hypoglycemia Vitamin D deficiency Home Medications glipizide 5 mg PO BID 12/22/18 [History Last Taken 07/27/19] losartan 50 mg PO DAILY 07/27/19 [History Last Taken 07/27/19] folic acid 1 mg PO DAILY 12/20/20 [History Last Taken Unknown] furosemide [Lasix] 20 mg PO DAILY 12/20/20 [History Last Taken Unknown] insulin glargine [Lantus Solostar U-100 Insulin] 12 unit SUBCUT QPM 12/20/20 [History Last Taken Unknown] insulin lispro [Humalog KwikPen Insulin] 20 unit SUBCUT TID 12/20/20 [History Last Taken Unknown] thiamine HCl (vitamin B1) 100 mg PO DAILY 12/20/20 [History Last Taken Unknown] Allergy/AdvReac Type Severity Reaction Status Date / Time Pjupvkm-Fqa-Rcc Reductase Allergy Swelling Verified 07/28/19 15:04 Inhibitor of joints Social History Smoking Status: Never smoker ROS ROS ED Constitutional Constitutional ED: Denies chills or fever(s) Eyes Eyes: Denies change in vision ENT ENT ED: Denies epistaxis or rhinorrhea Cardiovascular Cardiovascular: Denies chest pain or palpitations Respiratory/Chest Respiratory/Chest: Denies cough, dyspnea or dyspnea on exertion Gastrointestinal Gastrointestinal: Denies abdominal pain, diarrhea, nausea or vomiting Genitourinary Genitourinary ED: Denies dysuria, hematuria or urinary frequency Musculoskeletal Musculoskeletal: Denies back pain or neck pain Integumentary Denies rash Neurologic Neurologic: Denies dizziness, headache(s) or weakness EXAM Physical Exam Const Vital Signs: 12/20/20 23:11 12/20/20 23:23 12/21/20 01:18 Temperature 98.5 F Temperature Source Temporal Pulse Rate 92 73 Respiratory Rate 18 22 H Respiratory Effort Normal Non-Labored Blood Pressure 136/84 H 149/79 H Blood Pressure Mean 101 Pulse Ox 96 97 Oxygen Delivery Method Room Air Room Air Positive well nourished and well developed General Appearance ED: well developed and NAD HEENT Reports normocephalic, head/scalp atraumatic and moist mucous membranes Eyes PERRL and EOMs intact bilaterally Neck supple General: Negative for tenderness Chest Wall inspection of chest normal Resp normal respiratory effort and clear to auscultation bilaterally Auscultation: Negative for rales, rhonchi or wheezes Cardio regular rate, regular rhythm and no murmurs GI normal to inspection, nondistended, normoactive bowel sounds and non-tender Palpation: soft; Negative for guarding or rebound tenderness present Back/Spine no CVA tenderness Extremity normal to inspection General Extremety ED: Negative for edema or tenderness General Extremity: Negative for edema Neuro CN's II-XII intact bilaterally and no sensory deficits noted Neuro Narrative: Oriented to person and place but not time. Conversing well. Sensorium / Orientation: alert Motor Exam: strength 5/5 throughout Psych mental status grossly normal Skin no rashes or lesions noted MDM MDM MDM Narrative Medical decision making narrative: Patient presents the ED for confusion. He had an unwitnessed fall today. On arrival to the ED patient is not completely oriented. He does not have any acute focal deficits. No external evidence of trauma. His vital signs are within normal limits. Will check CT imaging of the head and neck. Will check basic lab work and urinalysis. Patient's lab work-up did not reveal any acute significant abnormality. His white blood cell count is mildly high. His sodium and chloride are mildly low. His glucose is 268. No evidence of DKA. His urine does have 1000 glucose but no evidence of infection. CT scan of the head and neck did not reveal any acute traumatic findings. On reevaluation patient in no acute distress. Still has no complaints. This time I believe he is stable for discharge. He is to follow-up with his PCP. Return precautions are reviewed. He understands and is agreeable to plan. All questions were answered. Lab Data Labs: Laboratory Results - last 24 hr 12/20/20 12/20/20 12/20/20 23:44 23:44 23:44 WBC 13.4 H RBC 5.18 Hgb 15.5 Hct 46.7 MCV 90.2 MCH 29.9 MCHC 33.2 RDW Std Deviation 43.3 RDW Coeff of Fred 13.1 Plt Count 222 MPV 10.8 Immature Gran % (Auto) 0.400 Neut % (Auto) 81.1 H Lymph % (Auto) 10.7 L [place] % (Auto) 6.0 Eos % (Auto) 1.3 Baso % (Auto) 0.5 Absolute Neuts (auto) 10.9 H Absolute Lymphs (auto) 1.43 Nucleated RBC % 0 Sodium 133 L Potassium 4.2 Chloride 97 L Carbon Dioxide 28.0 Anion Gap 8 BUN 13 Creatinine 1.00 Estim Creat Clear Calc 74.01 Est GFR (MDRD) Af Amer 96 Est GFR (MDRD) Non-Af 79 BUN/Creatinine Ratio 13.0 Glucose 268 H Calcium 8.9 Total Bilirubin 0.60 AST 21 ALT 50 Alkaline Phosphatase 122 H Troponin I High Sens 7.3 Total Protein 7.5 Albumin 3.5 Globulin 4.0 Albumin/Globulin Ratio 0.9 Urine Color Yellow Urine Clarity Clear Urine pH 6.0 Ur Specific [place] 1.010 Urine Protein Negative Urine Glucose (UA) 1000 H Urine Ketones Negative Urine Occult Blood Negative Urine Nitrite Negative Urine Bilirubin Negative Urine Urobilinogen Normal Ur Leukocyte Esterase Negative Urine RBC 0 SEEN Urine WBC 0 SEEN Ur Squamous Epith Cells 0 SEEN Urine Bacteria RARE Urine Mucus 0 SEEN Radiography Diagnostic Testing: Radiology Impression Chest X-Ray 12/20/20 23:27 IMPRESSION: No radiographic evidence of acute cardiopulmonary disease. at 0009 Reported and signed by: Davonte Wade MD Electronically Signed: Davonte Wade MD at 0:08 EDT Tel , Service support , Brain CT 12/21/20 00:03 IMPRESSION: 1. No acute intracranial abnormality. There has been no change from the reference examination. 2. Stable underlying senescent changes with small vessel ischemia. Individualized dose optimization techniques were used for this CT. at 0048 Reported and signed by: Davonte Wade MD Electronically Signed: Davonte Wade MD at 0:47 EDT Tel , Service support , Cervical Spine CT 12/21/20 23:27 IMPRESSION: 1. No acute osseous abnormalities of the cervical spine. 2. Degenerative changes with disc space narrowing. Individualized dose optimization techniques were used for this CT. at 0050 Reported and signed by: Davonte Wade MD Electronically Signed: Davonte Wade MD at 0:49 EDT Tel , Service support , EKG Initial EKG: Attestation: I personally reviewed and interpreted this EKG as follows: (Rate of 87 bpm and normal sinus rhythm. Prolonged [place] interval of 210 with first-degree AV block. Otherwise normal intervals. Normal axis. No significant ST elevations or depressions.) Discharge Plan Triage Chief Complaint: Fall ED Provider: Eliezer Brice Dx/Rx/DC Orders Clinical Impression: Fall, Change in mental state Instructions: ED ALOC, ED Fall with Uncertain Cause Prescriptions: No Action glipizide 5 MG tablet 5 mg PO BID RF: 0 losartan 50 MG tablet 50 mg PO DAILY RF: 0 thiamine HCl (vitamin B1) 100 mg Tablet 100 mg PO DAILY RF: 0 folic acid 1 mg Tablet 1 mg PO DAILY RF: 0 furosemide [Lasix] 20 mg Tablet 20 mg PO DAILY RF: 0 insulin lispro [Humalog KwikPen Insulin] 100 unit/mL Insulin Pen 20 unit SUBCUT TID RF: 0 Lantus Solostar U-100 Insulin 100 unit/mL (3 mL) Insulin Pen 12 unit SUBCUT QPM RF: 0 Primary Care Provider: Salinas Gruber Referrals: Salinas Gruber MD [Primary Care Provider] - 2 Days Disposition Disposition: Home, Self Care Discharge Date/Time: 12/21/20 01:38
[2020-12-21 00:10] LABS: Bacteria RARE /hpf (None Seen)
[2020-12-21 00:14] LABS: ALB/GLOB Ratio 0.9 RATIO (0.9-2.4); AST(SGOT) 21 U/L (15-37); Alanine Aminotransfer ALT/SGPT 50 U/L (16-61); Albumin, Serum 3.5 g/dL (3.2-5.0); Alkaline Phosphatase 122 U/L (45-117); Anion Gap 8 (5-15); BUN 13 mg/dL (7-18); Calcium,Total 8.9 mg/dL (8.5-10.1); Chloride 97 mmol/L (98-107); EST Glomerular Filtration Rate 79 mL/min (>60); Est Glom Filt Rate - Afr Amer 96 mL/min (>60); Estimated Creatinine Clearance 74.01 ml/min; Glucose 268 mg/dL (74-106); Potassium 4.2 mmol/L (3.5-5.1); Protein, Total 7.5 g/dL (6.4-8.2); Sodium Level 133 mmol/L (136-145); Troponin-I HS 7.3 pg/mL (3.0-78.5)
[2020-12-21 01:18] VITALS: BP 149/79; PULSE 73; RESP 22; O2SAT 97
--- NOTE | 2020-12-21 01:19 | ED.RN ---
THIS NURSE REVIEWED D/C INSTRUCTIONS WITH PT AND REPORT CALLED TO DONNA ORTIZ. IV D/C. IV CATHETER INTACT. PT TOLERATED WELL
--- NOTE | 2020-12-21 23:27 | CT_ITS ---
EXAM: CT CERVICAL SPINE WITHOUT INTRAVENOUS CONTRAST : 1955 CLINICAL INDICATION: Fall, confusion TECHNIQUE: Helically acquired images were obtained of the cervical spine without intravenous contrast. 2D reformatted images were reviewed. This CT exam was performed using one or more of the following dose reduction techniques: automated exposure control, adjustment of the mA and/or kV according to patient size, and/or use of iterative reconstruction technique. This report was created using [employer] technology. COMPARISON: None. FINDINGS: VERTEBRAE: Unremarkable. No fracture. No traumatic subluxation. No discrete lytic or blastic abnormality. Normal alignment. Normal craniocervical junction and cervicothoracic junction. DISCS/SPINAL CANAL/NEURAL FORAMINA: There is disc space narrowing at C5-6 and C6/7. SOFT TISSUES: Unremarkable. No prevertebral soft tissue swelling. LYMPH NODES: Unremarkable. No cervical adenopathy. LUNG APICES: Unremarkable as visualized. Clear. CT/Spine Cervical without Contras IMPRESSION: 1. No acute osseous abnormalities of the cervical spine. 2. Degenerative changes with disc space narrowing. Individualized dose optimization techniques were used for this CT. at 0050 Reported and signed by: Davonte Wade MD Electronically Signed: Davonte Wade MD at 0:49 EDT Tel , Service support ,
== END 2020-12-21 01:38 | disposition home or self-care (01) ==
PROVIDERS: Emergency Provider Emergency Medicine; PCP Internal Medicine
DX: R41.82 Altered mental status, unspecified (principal); W19.XXXA Unspecified fall, initial encounter; Y93.9 Activity, unspecified; Y92.9 Unspecified place or not applicable; I44.0 Atrioventricular block, first degree; E55.9 Vitamin D deficiency, unspecified; E78.5 Hyperlipidemia, unspecified; H81.10 Benign paroxysmal vertigo, unspecified ear; I12.9 Hypertensive chronic kidney disease with stage 1 through stage 4 chronic kidney disease, or unspecified chronic kidney disease; E11.22 Type 2 diabetes mellitus with diabetic chronic kidney disease; N18.2 Chronic kidney disease, stage 2 (mild); Z79.4 Long term (current) use of insulin; Z79.899 Other long term (current) drug therapy
CPT/HCPCS: 70450; 71045; 72125; 80053; 81001; 84484; 85025; 93005; 99285; A4216

== ENCOUNTER 2022-03-10 01:29 | Inpatient (IN) | payer MEDICARE, MEDICAID, SELFPAY ==
[2022-03-10] VITALS (16 sets, daily range): BP systolic 103–144; BP diastolic 55–74; PULSE 75–130; RESP 15–24; TEMP 36.4–38; O2SAT 91–100; BMI 36.9; BMI 32.9
--- NOTE | 2022-03-10 01:35 | EKG12_ITS ---
Test Reason : FALL Blood Pressure : / mmHG Vent. Rate : 100 BPM Atrial Rate : 100 BPM P-R Int : 224 ms QRS Dur : 080 ms QT Int : 350 ms P-R-T Axes : 000 091 002 degrees QTc Int : 451 ms Sinus rhythm with 1st degree A-V block Septal infarct , age undetermined Abnormal ECG Confirmed by ODELL WANG, MARISELA ([id number]), copy editor ZOFIA MURPHY ([id number]) on 03/12/2022 10:01:07 AM Referred By: ORLIN Confirmed By:LORIN BAIN MD
--- NOTE | 2022-03-10 01:35 | RAD_ITS ---
ACR Level 3 findings have been noted. An addendum which confirms receipt of the report will follow. EXAM: XR LEFT HIP WITH PELVIS WHEN PERFORMED, 1 VIEW CLINICAL INDICATION: pain TECHNIQUE: Frontal view of the left hip with pelvis when performed. This report was created using [employer] report generation technology. COMPARISON: None. FINDINGS: See Impression. RAD/HIP, UNI W/ Pelvis 2-3 Views IMPRESSION: 1. Acute fracture of the left femoral neck, minimally displaced. 2. Normal alignment of the left hip. 3. Mild to moderate degenerative changes at the pubic symphysis. Degenerative changes of the lumbar spine. 4. Multiple phleboliths in the pelvis. No other soft tissue abnormalities. Electronically Signed: Eligio Madrid MD at 2:50 EDT ,
--- NOTE | 2022-03-10 01:41 | ED.VIS.FALL ---
HPI HPI - Fall History of Present Illness Chief Complaint: Fall Narrative Narrative: 66-year-old male from [facility]. He is a poor informant. apparently he fell and he does not know the mechanism. He states that he cannot be entirely sure if he hit his head or not. He states he does not remember. He is not complaining of headache. He states that he does fall from time to time. He states he was unable to get up tonight. He complains of left hip pain. He is not broken his hip before that he can recall. Patient states that he thinks he has been in his usual state of health. [facility] Medical History Benign paroxysmal vertigo CAD (coronary artery disease) CKD (chronic kidney disease) stage 2, GFR 60-89 ml/min Diabetes mellitus History of alcohol abuse Hyperlipidemia Hypertension Obesity Vitamin D deficiency Home Medications glipizide 5 mg tablet 10 mg PO BID high blood sugar 12/22/18 [History Last Taken 07/27/19] losartan 50 mg tablet 50 mg PO DAILY bp 07/27/19 [History Last Taken 07/27/19] folic acid 1 mg tablet 1 mg PO DAILY 12/20/20 [History Last Taken Unknown] furosemide 20 mg tablet (Lasix) 20 mg PO DAILY 12/20/20 [History Last Taken Unknown] insulin glargine 100 unit/mL (3 mL) subcutaneous pen (Lantus Solostar U-100 Insulin) 34 unit subcut DAILY 12/20/20 [History Last Taken Unknown] insulin lispro 100 unit/mL subcutaneous pen (Humalog KwikPen (U-100) Insulin) 11 unit subcut LUNCH 12/20/20 [History Last Taken Unknown] aspirin 81 mg capsule 81 mg PO DAILY 03/10/22 [History Last Taken Unknown] bisacodyl 10 mg rectal suppository (Dulcolax (bisacodyl)) 10 mg NC DAILY PRN Constipation 03/10/22 [History Last Taken Unknown] clotrimazole 2 % vaginal cream 1 appful topical QHS 03/10/22 [History Last Taken Unknown] ezetimibe 10 mg tablet (Zetia) 10 mg PO QHS 03/10/22 [History Last Taken Unknown] insulin lispro 100 unit/mL subcutaneous pen (Humalog KwikPen (U-100) Insulin) 0 - 11 unit subcut TID PRN Hyperglycemia 03/10/22 [History Last Taken Unknown] insulin lispro 100 unit/mL subcutaneous pen (Humalog KwikPen (U-100) Insulin) 15 unit subcut BID 03/10/22 [History Last Taken Unknown] meclizine 12.5 mg tablet 25 mg PO DAILY PRN Nausea And Vomiting 03/10/22 [History Last Taken Unknown] melatonin 3 mg capsule 3 mg PO QHS 03/10/22 [History Last Taken Unknown] Allergy/AdvReac Type Severity Reaction Status Date / Time Uxlydyi-JLP-GmR Reductase Allergy Swelling Verified 03/10/22 01:31 Inhibitor of joints [Jdpxtrv-Ock-Hon Reductase Inhibitor] Family History Father Heart disease Surgical History Hx of CABG Social History housing: skilled nursing Smoking Status: Former smoker alcohol intake: former substance use type: does not use ROS ROS ED Constitutional Constitutional ED: Denies chills or fever(s) Eyes Eyes: Denies change in vision or diplopia ENT ENT ED: Denies rhinorrhea or sore throat Cardiovascular Cardiovascular: Denies chest pain Respiratory/Chest Respiratory/Chest: Denies cough or dyspnea Gastrointestinal Gastrointestinal: Denies abdominal pain or constipation Genitourinary Genitourinary ED: Denies dysuria or hematuria Musculoskeletal Musculoskeletal: Reports other Details: Left hip pain Integumentary Denies abscess Neurologic Neurologic: Denies headache(s) or paresthesias EXAM Physical Exam Const Vital Signs: 03/10/22 01:31 03/10/22 01:35 03/10/22 03:08 Temperature 99.1 F 97.9 F Temperature Source Temporal Temporal Pulse Rate 85 75 Respiratory Rate 15 18 Respiratory Effort Normal Non-Labored Respiratory Depth Normal Respiratory Pattern Normal Blood Pressure 110/55 L 111/69 Blood Pressure Mean 73 83 Pulse Ox 98 92 Oxygen Delivery Method Room Air Room Air Room Air Positive well nourished HEENT Reports normocephalic atraumatic; Negative for trauma or hematoma Eyes PERRL and EOMs intact bilaterally Neck full ROM Neck Narrative: No midline spinal tenderness, deformity, step Chest Wall inspection of chest normal Resp normal respiratory effort, no retractions and clear to auscultation bilaterally Auscultation: Negative for rales, rhonchi or wheezes Cardio regular rate and regular rhythm GI non-tender Back/Spine Lumbar Spine / Lower Back: Negative for lumbar spinal tenderness Extremity Extremity Narrative: Positive logroll left hip. Left leg externally rotated and shortened. Neuro CN's II-XII intact bilaterally Sensorium / Orientation: alert Psych mental status grossly normal Skin Lesions: no lesions Rashes: no rashes MDM MDM MDM Narrative Medical decision making narrative: Patient presenting with left hip pain positive logroll on the left. Left lower extremities externally rotated and shortened. Patient medicated with fentanyl and Zofran. Blood work is obtained. CBC shows a leukocytosis of 14.1, hemoglobin hematocrit are stable. Platelets are normal. Renal function electrolytes within normal limits. LFTs are normal. Patient was a poor informant and unable to tell me if he actually hit his head or not. He is not complaining of headache and I do not see signs of trauma but I did obtain a CT brain and cervical spine which were negative. Because of the slight confusion I checked a urine drug screen and EtOH which are normal. Chest x-ray on my interpretation shows no acute cardiopulmonary process and radiologist agree. I obtained an EKG which shows a normal sinus rhythm with a ventricular rate of 100 bpm with first-degree AV block. [place] catheter was placed due to patient's inability to ambulate. Urinalysis was obtained is negative for infection. Left hip x-ray shows an acute femoral neck fracture my interpretation. There are some slight displacement. The radiologist interprets this and agrees. Case was discussed with Dr. Ellison who recommended mended admission to the hospitalist. He ordered a CT of the hip for surgical planning. Patient was discussed with the hospitalist for admission. Impression: 1. Mechanical fall 2. Left hip fracture 3. Leukocytosis Lab Data Labs: Laboratory Results - last 24 hr 03/10/22 03/10/22 03/10/22 01:45 01:45 01:45 WBC 14.1 H RBC 5.30 Hgb 16.1 Hct 48.6 MCV 91.7 MCH 30.4 MCHC 33.1 RDW Std Deviation 44.1 H RDW Coeff of Fred 13.0 Plt Count 191 MPV 11.3 Immature Gran % (Auto) 0.900 Neut % (Auto) 75.8 H Lymph % (Auto) 14.5 L [place] % (Auto) 6.9 Eos % (Auto) 1.5 Baso % (Auto) 0.4 Absolute Neuts (auto) 10.7 H Absolute Lymphs (auto) 2.04 Nucleated RBC % 0 PT INR Sodium 140 Potassium 4.0 Chloride 104 Carbon Dioxide 29.0 Anion Gap 7 BUN 13 Creatinine 0.99 Estim Creat Clear Calc 73.74 Est GFR (MDRD) Af Amer 96 Est GFR (MDRD) Non-Af 80 BUN/Creatinine Ratio 13.1 Glucose 140 H Calcium 9.2 Total Bilirubin 0.80 AST 19 ALT 28 Alkaline Phosphatase 95 Total Protein 7.3 Albumin 3.4 Globulin 3.9 Albumin/Globulin Ratio 0.9 Urine Color Urine Clarity Urine pH Ur Specific [place] Urine Protein Urine Glucose (UA) Urine Ketones Urine Occult Blood Urine Nitrite Urine Bilirubin Urine Urobilinogen Ur Leukocyte Esterase Urine RBC Urine WBC Ur Squamous Epith Cells Urine Bacteria Urine Mucus Urine Opiates Screen Urine Methadone Screen Ur Barbiturates Screen Ur Phencyclidine Scrn Ur Amphetamines Screen MDMA (Ecstasy) Screen U Benzodiazepines Scrn Urine Cocaine Screen U Cannabinoids Screen Ur Drug Screen Comment Ethyl Alcohol < 3.0 03/10/22 03/10/22 03/10/22 01:45 02:16 02:16 WBC RBC Hgb Hct MCV MCH MCHC RDW Std Deviation RDW Coeff of Fred Plt Count MPV Immature Gran % (Auto) Neut % (Auto) Lymph % (Auto) [place] % (Auto) Eos % (Auto) Baso % (Auto) Absolute Neuts (auto) Absolute Lymphs (auto) Nucleated RBC % PT 13.7 INR 1.1 Sodium Potassium Chloride Carbon Dioxide Anion Gap BUN Creatinine Estim Creat Clear Calc Est GFR (MDRD) Af Amer Est GFR (MDRD) Non-Af BUN/Creatinine Ratio Glucose Calcium Total Bilirubin AST ALT Alkaline Phosphatase Total Protein Albumin Globulin Albumin/Globulin Ratio Urine Color Yellow Urine Clarity Clear Urine pH 7.0 Ur Specific [place] 1.010 Urine Protein Negative Urine Glucose (UA) Normal Urine Ketones Negative Urine Occult Blood 10 H Urine Nitrite Negative Urine Bilirubin Negative Urine Urobilinogen Normal Ur Leukocyte Esterase Negative Urine RBC 0 SEEN Urine WBC 0 SEEN Ur Squamous Epith Cells 0 SEEN Urine Bacteria 0 SEEN Urine Mucus 0 SEEN Urine Opiates Screen NEGATIVE Urine Methadone Screen NEGATIVE Ur Barbiturates Screen NEGATIVE Ur Phencyclidine Scrn NEGATIVE Ur Amphetamines Screen NEGATIVE MDMA (Ecstasy) Screen NEGATIVE U Benzodiazepines Scrn NEGATIVE Urine Cocaine Screen NEGATIVE U Cannabinoids Screen NEGATIVE Ur Drug Screen Comment Ethyl Alcohol Radiography Diagnostic Testing: Clinical Impression(s) from Imaging Studies Hip/Pelvis X-Ray 03/10/22 01:35 IMPRESSION: 1. Acute fracture of the left femoral neck, minimally displaced. 2. Normal alignment of the left hip. 3. Mild to moderate degenerative changes at the pubic symphysis. Degenerative changes of the lumbar spine. 4. Multiple phleboliths in the pelvis. No other soft tissue abnormalities. Electronically Signed: Eligio Madrid MD at 2:50 EDT Reading Location ID and State: [facility] / [place] Tel , Service support , ADDENDUM: 03/10/22 0310 IMPRESSION: 1. Acute fracture of the left femoral neck, minimally displaced. 2. Normal alignment of the left hip. 3. Mild to moderate degenerative changes at the pubic symphysis. Degenerative changes of the lumbar spine. 4. Multiple phleboliths in the pelvis. No other soft tissue abnormalities. N.B. : , DO, confirmed on 03/10/2022 03:03:47 (ET) that the healthcare facility has received the radiology report. Electronically Signed: Eligio Madrid MD at 2:50 EDT Reading Location ID and State: [facility] / [place] Tel , Service support , Brain CT 03/10/22 01:53 IMPRESSION: No acute intracranial pathology. No findings to explain the clinical presentation. Electronically Signed: Eligio Madrid MD at 2:16 EDT Reading Location ID and State: [facility] / [employer] Tel , Service support , Cervical Spine CT 03/10/22 01:53 IMPRESSION: No evidence of acute or healing fracture or malalignment. Electronically Signed: Eligio Madrid MD at 2:19 EDT , Chest X-Ray 03/10/22 02:00 IMPRESSION: No acute disease. Electronically Signed: Eligio Madrid MD at 3:04 EDT , Discharge Plan Triage Chief Complaint: Fall ED Provider: Jaison Bloom Dx/Rx/DC Orders Prescriptions: No Action glipizide 5 MG tablet 10 mg PO BID Label Comments: TAKE 1 TABLET BY MOUTH EVERY DAY losartan 50 MG tablet 50 mg PO DAILY folic acid 1 mg Tablet 1 mg PO DAILY furosemide [Lasix] 20 mg Tablet 20 mg PO DAILY insulin lispro [Humalog KwikPen Insulin] 100 unit/mL Insulin Pen 11 unit SUBCUT LUNCH insulin glargine [Lantus Solostar U-100 Insulin] 100 unit/mL (3 mL) Insulin Pen 34 unit SUBCUT DAILY bisacodyl [Dulcolax (bisacodyl)] 10 mg Suppository 10 mg NC DAILY PRN (Reason: Constipation) clotrimazole 2 % Cream 1 appful topical QHS Rx Instructions: apply to toes aspirin 81 mg Capsule 81 mg PO DAILY meclizine 12.5 mg Tablet 25 mg PO DAILY PRN (Reason: Nausea And Vomiting) insulin lispro [Humalog KwikPen Insulin] 100 unit/mL Insulin Pen 15 unit SUBCUT BID insulin lispro [Humalog KwikPen Insulin] 100 unit/mL Insulin Pen 0 - 11 unit SUBCUT TID PRN (Reason: Hyperglycemia) ezetimibe [Zetia] 10 mg Tablet 10 mg PO QHS melatonin 3 mg Capsule 3 mg PO QHS Primary Care Provider: Aysha Barron Referrals: Aysha Barron MD [Primary Care Provider] -
--- NOTE | 2022-03-10 01:53 | CT_ITS ---
EXAM: CT HEAD WITHOUT INTRAVENOUS CONTRAST CLINICAL INDICATION: confusion TECHNIQUE: Multiple axial images were obtained of the head without intravenous contrast. CTDIvol = ( 44.99 ) mGy, DLP = ( 863.60 ) mGycm This CT exam was performed using one or more of the following dose reduction techniques: automated exposure control, adjustment of the mA and/or kV according to patient size, and/or use of iterative reconstruction technique. This report was created using [employer] report generation technology. COMPARISON: None. FINDINGS: BRAIN AND EXTRA-AXIAL SPACES: Diffuse Chronic ischemic small vessel white matter disease. Dilated ventricles probably represent sequela of severe central parenchyma atrophy. No intra- or extra-axial hemorrhage. No evidence of acute infarct. No intracranial mass or mass effect. There is preservation of the brown/white matter interface. Posterior fossa structures are unremarkable. No midline shift. No hydrocephalus. Basal cisterns are patent. Carotid siphon and vertebrobasilar atherosclerotic calcifications. BONES/JOINTS: Unremarkable. No discrete lytic or blastic abnormalities. SINUSES: Unremarkable as visualized. Clear. MASTOID AIR CELLS: Unremarkable. Clear. ORBITS: Visualized globes, extraocular muscles, optic nerves and retrobulbar fat appear unremarkable. CT/Brain/Head without Contrast IMPRESSION: No acute intracranial pathology. No findings to explain the clinical presentation. Electronically Signed: Eligio Madrid MD at 2:16 EDT ,
--- NOTE | 2022-03-10 01:53 | CT_ITS ---
EXAM: CT CERVICAL SPINE WITHOUT INTRAVENOUS CONTRAST CLINICAL INDICATION: falls TECHNIQUE: Helically acquired images were obtained of the cervical spine without intravenous contrast. 2D reformatted images were reviewed. CTDIvol = ( 33.00 ) mGy, DLP = ( 681.96 ) mGycm This CT exam was performed using one or more of the following dose reduction techniques: automated exposure control, adjustment of the mA and/or kV according to patient size, and/or use of iterative reconstruction technique. This report was created using [employer] technology. COMPARISON: None. FINDINGS: VERTEBRAE: No evidence of acute or healing fracture or malalignment. No traumatic subluxation. No discrete lytic or blastic abnormality. Normal craniocervical junction and cervicothoracic junction. DISCS/SPINAL CANAL/NEURAL FORAMINA: Multilevel spine degenerative changes. No critical central canal stenosis or apical pneumothorax. SOFT TISSUES: Unremarkable. No prevertebral soft tissue swelling. VASCULATURE: Atherosclerotic calcifications of the internal carotid arteries of the neck. LYMPH NODES: Unremarkable. No cervical adenopathy. LUNG APICES: Unremarkable as visualized. Clear. CT/Spine Cervical without Contras IMPRESSION: No evidence of acute or healing fracture or malalignment. Electronically Signed: Eligio Madrid MD at 2:19 EDT ,
[2022-03-10 01:55] LABS: Absolute Lymphocyte Count 2.04 X10^3/uL (0.83-4.51); Absolute Neutrophil Count 10.7 X10^3/uL (2.0-7.7); Basophil# 0.05 X10^3/uL; Basophil% 0.4 % (0-1); Eosinophil# 0.21 X10^3/uL; Eosinophils% 1.5 % (0-5); Hematocrit 48.6 % (40-54); Hemoglobin 16.1 g/dL (13.0-16.5); Lymphocyte # 2.04 X10^3/ul (0.83-4.51); Lymphocyte % 14.5 % (19-41); Mean Corp Hgb Conc 33.1 g/dL (32-36); Mean Corpuscular Hgb 30.4 pg (27.0-32.0); Mean Corpuscular Volume 91.7 fL (80-94); Mean Platelet Vol. 11.3 fl (6.2-12.0); Monocyte# 0.97 X10^3/uL; Monocyte% 6.9 % (0-10); NRBC Flagged by Analyzer 0 % (0-5); Neutrophil # 10.65 X10^3/uL (2.7-7.7); Neutrophil % 75.8 % (47-70); Platelet Count 191 K/mm3 (150-450); RBC Distribution Width SD 44.1 fl (35.1-43.9); White Blood Count 14.1 K/mm3 (4.4-11.0)
[2022-03-10] MEDS: Ondansetron 4 MG/2 ML Vial IV (01:55)
--- NOTE | 2022-03-10 02:00 | RAD_ITS ---
EXAM: XR CHEST, 1 VIEW CLINICAL INDICATION: ams TECHNIQUE: Frontal view of the chest. This report was created using [employer] report generation technology. COMPARISON: 12/20/2020 FINDINGS: LUNGS AND PLEURAL SPACES: Low lung volumes with mild subsegmental atelectasis at the lung bases. No consolidation. No pleural effusion or pneumothorax. HEART: Unremarkable. Cardiac silhouette not enlarged. MEDIASTINUM: Central airways and mediastinal contour are unremarkable. BONES/JOINTS: Intact sternotomy wires. SOFT TISSUES: Unremarkable. RAD/Chest 1 View (Portable) IMPRESSION: No acute disease. Electronically Signed: Eligio Madrid MD at 3:04 EDT ,
[2022-03-10 02:09] LABS: Alcohol, Blood (Medical)-Serum < 3.0 mg/dL
[2022-03-10 02:11] LABS: ALB/GLOB Ratio 0.9 RATIO (0.9-2.4); AST(SGOT) 19 U/L (15-37); Alanine Aminotransfer ALT/SGPT 28 U/L (16-61); Albumin, Serum 3.4 g/dL (3.2-5.0); Alkaline Phosphatase 95 U/L (45-117); Anion Gap 7 (5-15); BUN 13 mg/dL (7-18); BUN/Creat Ratio 13.1 RATIO (10-20); Calcium,Total 9.2 mg/dL (8.5-10.1); Chloride 104 mmol/L (98-107); Creatinine, Serum 0.99 mg/dL (0.70-1.30); EST Glomerular Filtration Rate 80 mL/min (>60); Est Glom Filt Rate - Afr Amer 96 mL/min (>60); Estimated Creatinine Clearance 73.74 ml/min; Globulin 3.9 g/dL (2.2-4.2); Glucose 140 mg/dL (74-106); Protein, Total 7.3 g/dL (6.4-8.2); Sodium Level 140 mmol/L (136-145)
[2022-03-10] MEDS: fentaNYL 100 MCG/2 ML Ampul 25 MCG IV (02:20)
[2022-03-10 02:24] LABS: Bacteria 0 SEEN /hpf (None Seen); Mucous, Urine 0 SEEN /hpf (<or=2+); Red Blood Cells-Urine 0 SEEN /hpf (0-5); Squamous Epithelial Cells - UA 0 SEEN /hpf (0-5); White Blood Cells 0 SEEN /hpf (0-5)
[2022-03-10 02:30] LABS: Color, Urine Yellow (Yellow); Glucose, Dipstick Normal (Normal); Ketone-Dipstick Negative (Negative); Leukocyte Esterase-Dipstick Negative /ul (Negative); Nitrite-Dipstick Negative (Negative); Occult Blood-Urine 10 /ul (Negative); Protein-Dipstick Negative (Negative); Urine Bilirubin Dipstick Negative (Negative); Urine Clarity Clear (Clear); Urine Urobilinogen Normal (Normal)
[2022-03-10 02:45] LABS: Amphetamine Urine VISTA NEGATIVE (<1000 ng/mL); Barbiturate Urine VISTA NEGATIVE (< 200 ng/mL); Benzodiazepine Urine VISTA NEGATIVE (< 200 ng/mL); Cocaine Urine VISTA NEGATIVE (< 300 ng/mL); Ecstacy Urine VISTA NEGATIVE (< 500 ng/mL); Methadone Urine VISTA NEGATIVE (< 300 ng/mL); PCP Urine VISTA NEGATIVE (< 25 ng/mL); THC Urine VISTA NEGATIVE (< 50 ng/mL); Vista UDS pH Range 7
--- NOTE | 2022-03-10 03:13 | PCM.HP.STD ---
HPI - General General Date of Admission: 03/10/22 Date of Service: 03/10/22 Chief Complaint: Fall, L hip pain, debility. HPI Narrative The patient is a 66 y/o M residing at [facility] w/ PMHx: Hx frequent falls, CAD s/p CABG and PCI, Former EtOH abuse, HTN, HLD, CKD stage II, Diabetes mellitus type II, Obesity who presents to the [facility] ED on 03/10/22 with history of mechanical fall while walking back from the bathroom, falling onto his left hip with severe 10/10 sharp debilitating pain following with noted rotation and inability to bear weight prompting transition to the ED for evaluation. He currently rates his pain improved to 3/10. He states he has been doing well at his SNF with no dyspnea, exertional dyspnea or chest pain. Work-up in the ED included T 99.1, HR 85, BP 110/55, RR 15, 98% on RA, CBC w/ WBC 14.1, Hgb 16.1, Plts 191 with L shift, CMP unremarkable aside glucose 140, EtOH<3, UDS negative, CT brain with no acute intracranial findings, CT cervical spine with no evidence of acute or healing fracture or malalignment, plain film L hip with evidence of a left femoral neck fracture noted to be minimally displaced with normal alignment of the left hip as well as mild to moderate degenerative changes at the pubic symphysis, degenerative changes of the lumbar spine, multiple phleboliths in the pelvis, CXR with no acute cardiopulmonary findings, EKG with SR with 1AVB without acute evidence of ischemia. ED discussed case with Orthopedic surgeon Dr. Ellison who ordered CT hip to be obtained and this is pending upon admission. [facility] Medical History (Updated 03/10/22 @ 03:[address] Jocelin Rollins MD) Benign paroxysmal vertigo CAD (coronary artery disease) CKD (chronic kidney disease) stage 2, GFR 60-89 ml/min Diabetes mellitus History of alcohol abuse Hyperlipidemia Hypertension Obesity Vitamin D deficiency Home Medications glipizide 5 mg tablet 10 mg PO BID high blood sugar 12/22/18 [History Last Taken 07/27/19] losartan 50 mg tablet 50 mg PO DAILY bp 07/27/19 [History Last Taken 07/27/19] folic acid 1 mg tablet 1 mg PO DAILY 12/20/20 [History Last Taken Unknown] furosemide 20 mg tablet (Lasix) 20 mg PO DAILY 12/20/20 [History Last Taken Unknown] insulin glargine 100 unit/mL (3 mL) subcutaneous pen (Lantus Solostar U-100 Insulin) 34 unit subcut DAILY 12/20/20 [History Last Taken Unknown] insulin lispro 100 unit/mL subcutaneous pen (Humalog KwikPen (U-100) Insulin) 11 unit subcut LUNCH 12/20/20 [History Last Taken Unknown] aspirin 81 mg capsule 81 mg PO DAILY 03/10/22 [History Last Taken Unknown] bisacodyl 10 mg rectal suppository (Dulcolax (bisacodyl)) 10 mg [place] DAILY PRN Constipation 03/10/22 [History Last Taken Unknown] clotrimazole 2 % vaginal cream 1 appful topical QHS 03/10/22 [History Last Taken Unknown] ezetimibe 10 mg tablet (Zetia) 10 mg PO QHS 03/10/22 [History Last Taken Unknown] insulin lispro 100 unit/mL subcutaneous pen (Humalog KwikPen (U-100) Insulin) 0 - 11 unit subcut TID PRN Hyperglycemia 03/10/22 [History Last Taken Unknown] insulin lispro 100 unit/mL subcutaneous pen (Humalog KwikPen (U-100) Insulin) 15 unit subcut BID 03/10/22 [History Last Taken Unknown] meclizine 12.5 mg tablet 25 mg PO DAILY PRN Nausea And Vomiting 03/10/22 [History Last Taken Unknown] melatonin 3 mg capsule 3 mg PO QHS 03/10/22 [History Last Taken Unknown] Allergy/AdvReac Type Severity Reaction Status Date / Time Jmctgyv-NOP-VmW Reductase Allergy Swelling Verified 03/10/22 01:31 Inhibitor of joints [Knigyqs-Ukg-Zct Reductase Inhibitor] Family History Father Heart disease other (Patient denies any marked maternal family history including HD, DM, CA.) Surgical History (Updated 03/10/22 @ 03:[address] Jocelin Rollins MD) Hx of CABG S/P appendectomy S/P coronary angioplasty Social History housing: snf Smoking Status: Former smoker alcohol intake: former substance use type: does not use ROS ROS Narrative Admission Review of Systems: CONSTITUTIONAL: No weight loss, fever, chills, + weakness or fatigue. HEENT: Eyes: No visual loss, blurred vision, double vision or yellow sclerae. Ears, Nose, Throat: No hearing loss, sneezing, congestion, runny nose or sore throat. SKIN: No rash or itching, lesions, wounds. CARDIOVASCULAR: No chest pain, chest pressure or chest discomfort, palpitations, edema, orthopnea, syncopal events. RESPIRATORY: No shortness of breath, cough or sputum, wheezing, hemoptysis. GASTROINTESTINAL: No anorexia, nausea, vomiting or diarrhea, abdominal pain, melena, BRBPR. GENITOURINARY: No dysuria, frequency, urgency or retention. NEUROLOGICAL: No headache, dizziness, syncope, paralysis, ataxia, numbness or tingling in the extremities, focal weakness, change in bowel or bladder control, seizure. MUSCULOSKELETAL: + muscle, back pain, joint pain or stiffness. HEMATOLOGIC: + anemia, bleeding or bruising. LYMPHATICS: No enlarged nodes. No history of splenectomy. PSYCHIATRIC: No history of depression or anxiety. ENDOCRINOLOGIC: No reports of sweating, cold or heat intolerance. No polyuria or polydipsia. ALLERGIES: No history of asthma, hives, eczema or rhinitis. Vital Signs Vital Signs Vital Signs: 03/10/22 01:31 03/10/22 01:35 03/10/22 03:08 Temperature 99.1 F 97.9 F Temperature Source Temporal Temporal Pulse Rate 85 75 Respiratory Rate 15 18 Respiratory Effort Normal Non-Labored Respiratory Depth Normal Respiratory Pattern Normal Blood Pressure 110/55 L 111/69 Blood Pressure Mean 73 83 Pulse Ox 98 92 Oxygen Delivery Method Room Air Room Air Room Air Weight Weight: 257 lb 4.471 oz Body Mass Index (BMI) 36.9 Physical Exam Narrative Physical Examination: General: Awake, alert, oriented x 3 and cooperative, laying in the ED bed, comfortable appearing, rates pain improved to 3/10. Skin: Normal color, normal turgor, no icterus, no cyanosis. HEENT: AT/NC, EOMI, PERRLA, mildly dry MM, no carotid bruits or JVD noted. Lungs: Diminished, > bases, increased respiratory rate, no evidence of distress, , no rales, ronchi or wheezing. Heart: Regular rate and rhythm; no gallop, rub audible. Abdomen: Soft, obese, NTTP, no obvious distention, distant normal BS, no obvious HSM; however, habitus makes evaluation difficult. Extremities: No cyanosis, no clubbing, s/p fall with L hip external rotation, pulses intact. Neurological: Patient awake, alert, oriented x 3, cognitive function intact; pupils equally reactive to light and accommodation, cranial nerves grossly normal, moving extremities except expected reduction LLE given fall with L hip fracture, strength accordingly severely globally decreased. Psychiatric: Affect appears comfortable, flat affect, notes he is fatigued, no acute evidence of depressive or anxiety feelings. Results Lab / Micro Data Result Diagrams: 03/10/22 01:45 03/10/22 01:45 Labs: Laboratory Results - last 24 hr 03/10/22 01:45: WBC 14.1 H, RBC 5.30, Hgb 16.1, Hct 48.6, MCV 91.7, MCH 30.4, MCHC 33.1, RDW Std Deviation 44.1 H, RDW Coeff of Fred 13.0, Plt Count 191, MPV 11.3, Immature Gran % (Auto) 0.900, Neut % (Auto) 75.8 H, Lymph % (Auto) 14.5 L, [place] % (Auto) 6.9, Eos % (Auto) 1.5, Baso % (Auto) 0.4, Absolute Neuts (auto) 10.7 H, Absolute Lymphs (auto) 2.04, Nucleated RBC % 0 03/10/22 01:45: Sodium 140, Potassium 4.0, Chloride 104, Carbon Dioxide 29.0, Anion Gap 7, BUN 13, Creatinine 0.99, Estim Creat Clear Calc 73.74, Est GFR (MDRD) Af Amer 96, Est GFR (MDRD) Non-Af 80, BUN/Creatinine Ratio 13.1, Glucose 140 H, Calcium 9.2, Total Bilirubin 0.80, AST 19, ALT 28, Alkaline Phosphatase 95, Total Protein 7.3, Albumin 3.4, Globulin 3.9, Albumin/Globulin Ratio 0.9 03/10/22 01:45: Ethyl Alcohol < 3.0 03/10/22 02:16: Urine Color Yellow, Urine Clarity Clear, Urine pH 7.0, Ur Specific [place] 1.010, Urine Protein Negative, Urine Glucose (UA) Normal, Urine Ketones Negative, Urine Occult Blood 10 H, Urine Nitrite Negative, Urine Bilirubin Negative, Urine Urobilinogen Normal, Ur Leukocyte Esterase Negative, Urine RBC 0 SEEN, Urine WBC 0 SEEN, Ur Squamous Epith Cells 0 SEEN, Urine Bacteria 0 SEEN, Urine Mucus 0 SEEN 03/10/22 02:16: Urine Opiates Screen NEGATIVE, Urine Methadone Screen NEGATIVE, Ur Barbiturates Screen NEGATIVE, Ur Phencyclidine Scrn NEGATIVE, Ur Amphetamines Screen NEGATIVE, MDMA (Ecstasy) Screen NEGATIVE, U Benzodiazepines Scrn NEGATIVE, Urine Cocaine Screen NEGATIVE, U Cannabinoids Screen NEGATIVE, Ur Drug Screen Comment Radiology Impression Hip/Pelvis X-Ray 03/10/22 01:35 IMPRESSION: 1. Acute fracture of the left femoral neck, minimally displaced. 2. Normal alignment of the left hip. 3. Mild to moderate degenerative changes at the pubic symphysis. Degenerative changes of the lumbar spine. 4. Multiple phleboliths in the pelvis. No other soft tissue abnormalities. Electronically Signed: Eligio Madrid MD at 2:50 EDT Reading Location ID and State: [id number] / [place] Tel , Service support , ADDENDUM: 03/10/22 0310 IMPRESSION: 1. Acute fracture of the left femoral neck, minimally displaced. 2. Normal alignment of the left hip. 3. Mild to moderate degenerative changes at the pubic symphysis. Degenerative changes of the lumbar spine. 4. Multiple phleboliths in the pelvis. No other soft tissue abnormalities. N.B. : , DO, confirmed on 03/10/2022 03:03:47 (ET) that the healthcare facility has received the radiology report. Electronically Signed: Eligio Madrid MD at 2:50 EDT , Brain CT 03/10/22 01:53 IMPRESSION: No acute intracranial pathology. No findings to explain the clinical presentation. Electronically Signed: Eligio Madrid MD at 2:16 EDT , Cervical Spine CT 03/10/22 01:53 IMPRESSION: No evidence of acute or healing fracture or malalignment. Electronically Signed: Eligio Madrid MD at 2:19 EDT , Chest X-Ray 03/10/22 02:00 IMPRESSION: No acute disease. Electronically Signed: Eligio Madrid MD at 3:04 EDT , Assessment & Plan Assessment/Plan (1) Closed left hip fracture: PLAN: Plan The patient is a 66 y/o M residing at [facility] w/ PMHx: Hx frequent falls, CAD, Former EtOH abuse, HTN, HLD, CKD stage II, Diabetes mellitus type II, Obesity who presents to the [facility] ED on 03/10/22 with history of mechanical fall while walking back from the bathroom, falling onto his left hip with severe 10/10 sharp debilitating pain following with noted rotation and inability to bear weight prompting transition to the ED for evaluation. #1. General debility, left hip pain s/p mechanical fall w/ L femoral neck fracture: Plain film noting with L femoral neck fracture. Orthopedic surgery consulted from ED, Dr. Ellison. Will admit to [facility], maintain NPO, continue gentle IVFs, catsrejon placement, monitor I/Os, frequent positioning, fall precautions, PRN pain and anti-emetic regimen. PT/OT following operative intervention. CM consulted for discharge planning. NSQIP given age, underlying history and planned intervention with decent risk especially given unclear cardiac status. Will request preop BNP, preop troponin as well as EKG and if these items demonstrate no acute findings would plan to proceed to the OR. If there are elevations would obtain ECHO and also request cardiology evaluation. #2. CAD: Status post CABG, will continue aspirin, Zetia, BB, losartan, not on statin nor beta-jeet therapy. #3. Hypertension: Continue home regimen including losartan, Lasix, PRN hydralazine. #4. Hyperlipidemia: Not on statin therapy, will continue home Zetia regimen. #5. Diabetes mellitus type II: Hold oral home regimen, continue home insulin regimen, n.p.o. status for OR consideration, accu checks w/ ISS. #6. Chronic Kidney Disease Stage II: Admission BUN/Cr 13/0.99, baseline renal function 0.8-1.0, will continue to trend. #7. Former alcohol abuse: Encouraged continued sobriety. #8. Former tobacco use: Encourage continued tobacco cessation. #9. Obesity: Weight loss and lifestyle changes encouraged. #10. DVT prophylaxis: SCDs, hold chemoprophylaxis for possible OR as noted. #11. CODE status: Patient HCPOA and living will are not in place. Discussed CODE status at length including difference between FULL code, DNR-CCA and DNR-CC status. Following discussions about the differences in these status, requested Full Code status. Advanced Care Planning Face to Face Time: 16 minutes. Charges/Coding Visit Charges Inpatient E&M: 99795 Init Hosp L3 Procedures Hospitalists Procedures: 56028 Advncd Care Plan 30 Min
--- NOTE | 2022-03-10 03:22 | CT_ITS ---
EXAM: CT LEFT LOWER EXTREMITY WITHOUT INTRAVENOUS CONTRAST CLINICAL INDICATION: assess displacement of hip fracture TECHNIQUE: Helically acquired images were obtained of the left lower extremity without intravenous contrast. 2-D reformats were performed by the technologist. CTDIvol = ( 34.69 ) mGy, DLP = ( 1134.67 ) mGycm This CT exam was performed using one or more of the following dose reduction techniques: automated exposure control, adjustment of the mA and/or kV according to patient size, and/or use of iterative reconstruction technique. This report was created using [employer] report [employer] technology. COMPARISON: None. FINDINGS: Acute mildly displaced fracture involving the left femoral neck. No involvement of the adjacent articular surface. Normal alignment at the left hip joint. Mild to moderate degenerative changes of the left hip joint. Degenerative changes of the pubic symphysis. Decompressed bladder with bladder catheter in place. No soft tissue hemorrhage or hematoma. No large hip joint effusion. Peripheral vascular disease. CT/Extremity Lower without Contra IMPRESSION: Acute mildly displaced fracture involving the femoral neck. Electronically Signed: Eligio Madrid MD at 3:50 EDT ,
[2022-03-10 03:31] LABS: International Normalized Ratio 1.1; Prothrombin Time (Protime)PT. 13.7 SECONDS (11.7-14.9)
[2022-03-10 03:40] LABS: Troponin-I HS 7 pg/mL (3.0-78.0)
[2022-03-10 03:46] LABS: BNP,B-Type NATRIURETIC PEPTIDE 25.1 pg/mL (0-100)
--- NOTE | 2022-03-10 03:46 | ED.RN ---
fernanda sheth made aware of admission at this time
[2022-03-10] MEDS: 0.9% Saline Lock 10 ML Syringe IV (04:56)
[2022-03-10] MEDS: 0.9% Normal Saline 1,000 ML 75 ML IV (04:56)
[2022-03-10] MEDS: Insulin Lispro 100 UNIT/ML INSULN.PEN SC ×2 (06:21→21:55)
[2022-03-10 06:31] LABS: Absolute Lymphocyte Count 1.07 X10^3/uL (0.83-4.51); Absolute Neutrophil Count 16.6 X10^3/uL (2.0-7.7); Basophil# 0.03 X10^3/uL; Basophil% 0.2 % (0-1); Eosinophil# 0.05 X10^3/uL; Eosinophils% 0.3 % (0-5); Hematocrit 48.3 % (40-54); Hemoglobin 16.6 g/dL (13.0-16.5); Lymphocyte # 1.07 X10^3/ul (0.83-4.51); Lymphocyte % 5.6 % (19-41); Mean Corp Hgb Conc 34.4 g/dL (32-36); Mean Corpuscular Hgb 31.1 pg (27.0-32.0); Mean Corpuscular Volume 90.6 fL (80-94); Mean Platelet Vol. 11.2 fl (6.2-12.0); Monocyte# 1.17 X10^3/uL; Monocyte% 6.1 % (0-10); NRBC Flagged by Analyzer 0 % (0-5); Neutrophil # 16.63 X10^3/uL (2.7-7.7); Neutrophil % 87.3 % (47-70); Platelet Count 189 K/mm3 (150-450); RBC Distribution Width CV 13.2 % (11.6-14.6); RBC Distribution Width SD 43.7 fl (35.1-43.9); Red Blood Count 5.33 M/mm3 (4.6-6.2)
[2022-03-10 06:35] LABS: Bedside Glucose 187 mg/dL (74-106)
[2022-03-10 07:01] LABS: ALB/GLOB Ratio 0.9 RATIO (0.9-2.4); AST(SGOT) 21 U/L (15-37); Alanine Aminotransfer ALT/SGPT 29 U/L (16-61); Albumin, Serum 3.2 g/dL (3.2-5.0); Alkaline Phosphatase 93 U/L (45-117); Anion Gap 4 (5-15); BUN 12 mg/dL (7-18); BUN/Creat Ratio 11.2 RATIO (10-20); Calcium,Total 8.7 mg/dL (8.5-10.1); Chloride 105 mmol/L (98-107); Creatinine, Serum 1.07 mg/dL (0.70-1.30); EST Glomerular Filtration Rate 73 mL/min (>60); Est Glom Filt Rate - Afr Amer 88 mL/min (>60); Estimated Creatinine Clearance 70.37 ml/min; Globulin 3.6 g/dL (2.2-4.2); Glucose 186 mg/dL (74-106); Protein, Total 6.8 g/dL (6.4-8.2); Sodium Level 139 mmol/L (136-145)
[2022-03-10 07:21] LABS: Hemoglobin A1c 6.8 % (3.8-5.6)
[2022-03-10] MEDS: Morphine 2 MG/ML Syringe IV (07:45)
[2022-03-10] MEDS: Acetaminophen 325 MG Tablet 650 MG PO ×2 (09:40→21:53)
[2022-03-10] MEDS: 0.9% Normal Saline 1,000 ML 500 ML IV (09:45)
--- NOTE | 2022-03-10 09:50 | CON.PCM.OR_ITS ---
HPI Consult Data Date of Consult: 03/10/22 HPI Narrative HPI Narrative: JESSY ROBERTSON, is a 66 M who presents with a left femoral neck fracture after a fall. He lives in a senior living. He is in assisted living facility due to difficulty in self-care and history of alcohol abuse. He had a fall going to the washroom. He was admitted last evening by the hospitalist service for the left hip fracture. Did not complain about shortness of breath or chest pain at the time He does have a cardiac history. [facility] Medical History Benign paroxysmal vertigo CAD (coronary artery disease) CKD (chronic kidney disease) stage 2, GFR 60-89 ml/min Diabetes mellitus History of alcohol abuse Hyperlipidemia Hypertension Obesity Vitamin D deficiency Medical History unable to obtain Home Medications glipizide 5 mg tablet 10 mg PO DAILY high blood sugar 12/22/18 [History Last Taken 07/27/19] losartan 50 mg tablet 50 mg PO DAILY bp 07/27/19 [History Last Taken 07/27/19] folic acid 1 mg tablet 1 mg PO DAILY vitamin deficiency 12/20/20 [History Last Taken Unknown] furosemide 20 mg tablet (Lasix) 20 mg PO DAILY water pill 12/20/20 [History Last Taken Unknown] insulin glargine 100 unit/mL (3 mL) subcutaneous pen (Lantus Solostar U-100 Insulin) 34 unit subcut DAILY diabetes 12/20/20 [History Last Taken Unknown] insulin lispro 100 unit/mL subcutaneous pen (Humalog KwikPen (U-100) Insulin) 11 unit subcut LUNCH diabetes 12/20/20 [History Last Taken Unknown] acetaminophen 325 mg tablet 650 mg PO Q4H PRN pain or fever 03/10/22 [History Last Taken Unknown] aspirin 81 mg capsule 81 mg PO DAILY 03/10/22 [History Last Taken Unknown] bisacodyl 10 mg rectal suppository (Dulcolax (bisacodyl)) 10 mg [place] DAILY PRN Constipation 03/10/22 [History Last Taken Unknown] clotrimazole 2 % vaginal cream 1 appful topical QHS toe fungus 03/10/22 [History Last Taken Unknown] ezetimibe 10 mg tablet (Zetia) 10 mg PO QHS diabetes 03/10/22 [History Last Taken Unknown] insulin lispro 100 unit/mL subcutaneous pen (Humalog KwikPen (U-100) Insulin) 0 - 11 unit subcut TIDCM diabetes 03/10/22 [History Last Taken Unknown] insulin lispro 100 unit/mL subcutaneous pen (Humalog KwikPen (U-100) Insulin) 15 unit subcut BID diabetes 03/10/22 [History Last Taken Unknown] magnesium hydroxide 400 mg/5 mL oral suspension (Milk of Magnesia) 30 ml PO DAILY PRN Constipation 03/10/22 [History Last Taken Unknown] meclizine 12.5 mg tablet 25 mg PO DAILY PRN Nausea And Vomiting 03/10/22 [History Last Taken Unknown] melatonin 3 mg capsule 3 mg PO QHS insomnia 03/10/22 [History Last Taken Unknown] Allergy/AdvReac Type Severity Reaction Status Date / Time Eplvljw-OUH-FmF Reductase Allergy Swelling Verified 03/10/22 01:31 Inhibitor of joints [Hhwkres-Wor-Xvc Reductase Inhibitor] Family History Father Heart disease Family History other Surgical History Hx of CABG S/P appendectomy S/P coronary angioplasty Social History housing: senior living Smoking Status: Former smoker alcohol intake: former substance use type: does not use Vital Signs Vital Signs Vital Signs: 03/10/22 01:31 03/10/22 01:35 03/10/22 03:08 Temperature 99.1 F 97.9 F Temperature Source Temporal Temporal Pulse Rate 85 75 Pulse Strength Respiratory Rate 15 18 Respiratory Effort Normal Non-Labored Respiratory Depth Normal Respiratory Pattern Normal Blood Pressure 110/55 L 111/69 Blood Pressure Mean 73 83 Blood Pressure Source Blood Pressure Position Blood Pressure Location Pulse Ox 98 92 Oxygen Delivery Method Room Air Room Air Room Air 03/10/22 04:06 03/10/22 04:36 03/10/22 05:02 Temperature 97.9 F Temperature Source Oral Pulse Rate 107 H Pulse Strength Respiratory Rate 18 Respiratory Effort Normal Non-Labored Respiratory Depth Normal Respiratory Pattern Normal Blood Pressure 142/74 H Blood Pressure Mean 96 Blood Pressure Source Monitor Blood Pressure Position Semi-Fowlers Blood Pressure Location Left Forearm Pulse Ox 94 94 Oxygen Delivery Method Room Air Room Air Room Air 03/10/22 08:07 03/10/22 08:07 03/10/22 08:07 Temperature 100.4 F H Temperature Source Oral Pulse Rate 130 H Pulse Strength Normal (2+) Respiratory Rate 16 Respiratory Effort Normal Respiratory Depth Normal Respiratory Pattern Normal Blood Pressure 104/68 Blood Pressure Mean 80 Blood Pressure Source Monitor Blood Pressure Position Semi-Fowlers Blood Pressure Location Left Arm Pulse Ox 93 Oxygen Delivery Method Room Air Room Air 03/10/22 09:45 Temperature 99.8 F H Temperature Source Oral Pulse Rate 129 H Pulse Strength Respiratory Rate 16 Respiratory Effort Respiratory Depth Respiratory Pattern Blood Pressure 103/67 Blood Pressure Mean 79 Blood Pressure Source Monitor Blood Pressure Position Semi-Fowlers Blood Pressure Location Left Arm Pulse Ox 91 Oxygen Delivery Method Room Air Weight Weight: 236 lb 5.369 oz Body Mass Index (BMI) 32.9 Physical Exam Const alert, oriented x3 and no apparent distress HEENT normocephalic Resp normal respiratory effort Cardio regular rate GI non-distended Extremity normal capillary refill, no calf tenderness and no pedal edema Extremity Narrative: Pain at the left hip. No obvious bruising there. No pain at the knee or ankle. Foot is warm and well-perfused good dorsalis pedis pulse. Able to wiggle his toes dorsiflex and plantarflex his foot. Normal sensation of the superficial and deep peroneal nerves as well as saphenous sural and tibial. Lab / Micro Data Result Diagrams: 03/10/22 06:15 03/10/22 06:15 Labs: Laboratory Results - last 24 hr 03/10/22 01:45: WBC 14.1 H, RBC 5.30, Hgb 16.1, Hct 48.6, MCV 91.7, MCH 30.4, MCHC 33.1, RDW Std Deviation 44.1 H, RDW Coeff of Frde 13.0, Plt Count 191, MPV 11.3, Immature Gran % (Auto) 0.900, Neut % (Auto) 75.8 H, Lymph % (Auto) 14.5 L, [place] % (Auto) 6.9, Eos % (Auto) 1.5, Baso % (Auto) 0.4, Absolute Neuts (auto) 10.7 H, Absolute Lymphs (auto) 2.04, Nucleated RBC % 0 03/10/22 01:45: Sodium 140, Potassium 4.0, Chloride 104, Carbon Dioxide 29.0, Anion Gap 7, BUN 13, Creatinine 0.99, Estim Creat Clear Calc 73.74, Est GFR (MDRD) Af Amer 96, Est GFR (MDRD) Non-Af 80, BUN/Creatinine Ratio 13.1, Glucose 140 H, Calcium 9.2, Total Bilirubin 0.80, AST 19, ALT 28, Alkaline Phosphatase 95, Total Protein 7.3, Albumin 3.4, Globulin 3.9, Albumin/Globulin Ratio 0.9 03/10/22 01:45: Ethyl Alcohol < 3.0 03/10/22 01:45: Magnesium 2.0, Troponin I High Sens 7 03/10/22 01:45: B-Natriuretic Peptide 25.1 03/10/22 01:45: PT 13.7, INR 1.1 03/10/22 02:16: Urine Color Yellow, Urine Clarity Clear, Urine pH 7.0, Ur Specific [place] 1.010, Urine Protein Negative, Urine Glucose (UA) Normal, Urine Ketones Negative, Urine Occult Blood 10 H, Urine Nitrite Negative, Urine Bilir ubin Negative, Urine Urobilinogen Normal, Ur Leukocyte Esterase Negative, Urine RBC 0 SEEN, Urine WBC 0 SEEN, Ur Squamous Epith Cells 0 SEEN, Urine Bacteria 0 SEEN, Urine Mucus 0 SEEN 03/10/22 02:16: Urine Opiates Screen NEGATIVE, Urine Methadone Screen NEGATIVE, Ur Barbiturates Screen NEGATIVE, Ur Phencyclidine Scrn NEGATIVE, Ur Amphetamines Screen NEGATIVE, MDMA (Ecstasy) Screen NEGATIVE, U Benzodiazepines Scrn NEGATIVE, Urine Cocaine Screen NEGATIVE, U Cannabinoids Screen NEGATIVE, Ur Drug Screen Comment 03/10/22 06:15: WBC 19.0 H, RBC 5.33, Hgb 16.6 H, Hct 48.3, MCV 90.6, MCH 31.1, MCHC 34.4, RDW Std Deviation 43.7, RDW Coeff of Fred 13.2, Plt Count 189, MPV 11.2, Immature Gran % (Auto) 0.500, Neut % (Auto) 87.3 H, Lymph % (Auto) 5.6 L, [place] % (Auto) 6.1, Eos % (Auto) 0.3, Baso % (Auto) 0.2, Absolute Neuts (auto) 16.6 H, Absolute Lymphs (auto) 1.07, Nucleated RBC % 0 03/10/22 06:15: Sodium 139, Potassium 5.0, Chloride 105, Carbon Dioxide 30.0, Anion Gap 4 L, BUN 12, Creatinine 1.07, Estim Creat Clear Calc 70.37, Est GFR (MDRD) Af Amer 88, Est GFR (MDRD) Non-Af 73, BUN/Creatinine Ratio 11.2, Glucose 186 H, Calcium 8.7, Total Bilirubin 0.90, AST 21, ALT 29, Alkaline Phosphatase 93, Total Protein 6.8, Albumin 3.2, Globulin 3.6, Albumin/Globulin Ratio 0.9 03/10/22 06:15: Hemoglobin A1c 6.8 H 03/10/22 06:15: Blood Type O NEGATIVE, Antibody Screen NEGATIVE 03/10/22 06:16: POC Glucose 187 H Radiology Impression Hip/Pelvis X-Ray 03/10/22 01:35 IMPRESSION: 1. Acute fracture of the left femoral neck, minimally displaced. 2. Normal alignment of the left hip. 3. Mild to moderate degenerative changes at the pubic symphysis. Degenerative changes of the lumbar spine. 4. Multiple phleboliths in the pelvis. No other soft tissue abnormalities. Electronically Signed: Eligio Madrid MD at 2:50 EDT Reading Location ID and State: [employer] / [place] Tel , Service support , ADDENDUM: 03/10/22 0310 IMPRESSION: 1. Acute fracture of the left femoral neck, minimally displaced. 2. Normal alignment of the left hip. 3. Mild to moderate degenerative changes at the pubic symphysis. Degenerative changes of the lumbar spine. 4. Multiple phleboliths in the pelvis. No other soft tissue abnormalities. N.B. : , DO, confirmed on 03/10/2022 03:03:47 (ET) that the healthcare facility has received the radiology report. Electronically Signed: Eligio Madrid MD at 2:50 EDT , Brain CT 03/10/22 01:53 IMPRESSION: No acute intracranial pathology. No findings to explain the clinical presentation. Electronically Signed: Eligio Madrid MD at 2:16 EDT , Cervical Spine CT 03/10/22 01:53 IMPRESSION: No evidence of acute or healing fracture or malalignment. Electronically Signed: Eligio Madrid MD at 2:19 EDT , Chest X-Ray 03/10/22 02:00 IMPRESSION: No acute disease. Electronically Signed: Eligio Madrid MD at 3:04 EDT Reading Location ID and State: 1920 / [employer] , Service support , Lower Extremity CT 03/10/22 03:22 IMPRESSION: Acute mildly displaced fracture involving the femoral neck. Electronically Signed: Eligio Madrid MD at 3:50 EDT Reading Location ID and State: [id number] / [employer] , Service support , Upon my own interpretation of the CT scan he appears to have a valgus impacted femoral neck fracture. Assessment & Plan Assessment/Plan (1) Closed left hip fracture: PLAN: 66-year-old man appears to have a left hip femoral neck valgus impacted fracture. Typical treatment for this would be open reduction internal fixation and other option would be hemiarthroplasty. We discussed the pros and cons risks and benefits of each of these methods of treatment, as well as nonoperative management. Plan to go ahead with Synthes femoral neck system possible hemiarthroplasty I have booked and consented him for left hip open reduction internal fixation possible hemiarthroplasty. I discussed this with the patient as well as with his son Jacky who is listed as his first emergency contact. He has been made fasting. He has been cleared by the hospitalist service. I have talked to the OR nurse supervisor filling and packing as well as the parcel post clerk on-call and I will make every effort to perform the case today. Marked left lower extremity. Patient understands and no further questions. Pros and cons risks and benefits were discussed with the patient including but not limited to infection, pain, stiffness, bleeding, damage to surrounding structures, neurovascular injury, recurrence or retear, failure or wear of hardware or fixation, instability, fracture, deep vein thrombosis and pulmonary embolism, anesthetic risks, patient dissatisfaction, need for further surgery such as with AVN or non healing of the fracture which would proceed to arthro plasty and hardware removal, and other risks. Patient understood and wished to proceed with surgery, and signed the informed consent documentation. PLAN: Plan bill level 4 inpatient consult
--- NOTE | 2022-03-10 10:33 | PCM.HOSP.N ---
Hospitalist Note Patient was seen and examined today, he does not complain of severe hip pain at this time although he has been medicated with narcotics. Patient is tachycardic-not sure the reason why-patient has no complaints of any chest pain or shortness of breath. I have elected to give the patient some IV fluids presently, I have reviewed his chart including his EKG, he appears stable for surgery at this time. Patient admits to a past history of heart disease-he states that he had a heart attack 20 years ago and he has had no recent history of any chest pain or shortness of breath. It appears that the patient has been in a senior living for several months due to inability to care for self at home. I talked briefly with orthopedic surgery today as well as anesthesia. Again, I think the patient is stable at this time for surgery.
--- NOTE | 2022-03-10 10:39 | NURSING ---
pt to surgery
--- NOTE | 2022-03-10 12:30 | RAD_ITS ---
STUDY: X-RAY - PELVIS AND LEFT HIP REASON FOR EXAM: Male, 66 years old. 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 COMPARISON: Left hip x-ray dated March 10, 2022 FINDINGS: The images shows surgical instrumentation of the left hip with subsequent placement of a dynamic compression screw construct oriented along the long axis of the femoral neck through the subcapital fracture which is been reduced and fixated. RAD/Hip Min 2 Views (Portable) IMPRESSION: Status post hardware fixation of the left femur subcapital fracture fragments Electronically Signed: Serg Mcguire MD at 15:34 EDT ,
[2022-03-10 12:45] LABS: Base Excess 0 mmol/L (-2 to +2); Bicarbonate 24.9 mmol/L (22-26); Blood Gas Specimen Type ART; FI02 21; PO2 70 mmHG (75-100); SO2 94 % (95-99); Total Carbon Dioxide 26 mmol/L; pCO2 39.1 mmHg (35-45); pH 7.41 (7.35-7.45)
[2022-03-10 12:52] LABS: Hematocrit 42.6 % (40-54); Mean Corp Hgb Conc 32.9 g/dL (32-36); Mean Corpuscular Hgb 30.6 pg (27.0-32.0); Mean Corpuscular Volume 93.2 fL (80-94); Mean Platelet Vol. 11.5 fl (6.2-12.0); Platelet Count 178 K/mm3 (150-450); RBC Distribution Width CV 13.2 % (11.6-14.6); RBC Distribution Width SD 45.1 fl (35.1-43.9); Red Blood Count 4.57 M/mm3 (4.6-6.2)
[2022-03-10] MEDS: Lidocaine 1% (20 ml mdv) 20 ML Vial (14:05)
--- NOTE | 2022-03-10 14:13 | PCM.OPRPT ---
Problems Associated Problem List Diagnoses (1) Closed left hip fracture: Report of Operation Date of Procedure: 03/10/22 Pre-Operative Diagnosis: left femoral neck fracture Post-Operative Diagnosis: same Surgery/Procedure Performed:: ORIF left femoral neck (synthes FNS) Description of Surgical Findings:: nondisplaced femoral neck fracture Surgeon: Raul Ellison Type of Anesthesia: General and Local Anesthesiologist: Ran Arboleda Estimated Blood Loss (mL): 100 Description of Procedure: Patient was brought the operating theater.? They were placed supine on the fracture table.? Left leg in the traction set up no traction applied.? Right leg in scissoring position attached to the post and appropriately padded on both sides of the leg.? SCD on the opposite extremity.? General anesthesia induced. Art line placed, CBC sent by anesthesia and hydration fluids for low BP's and increased heart rate, but patient was stable after that and throughout preocedure. 2 g of IV Ancef is administered prior to the start of the case.? Left lower extremity prepped and draped in the usual sterile fashion with chlorhexidine-based prep solution allowing over 3 minutes drying time prior to draping.? Shower curtain style Ioban drape. AP lateral radiographs were taken to confirm nondisplaced valgus impacted nature of the femoral neck fracture.? Preoperative timeout performed to confirm the site patient and the surgery. I began by passing a 3.2 mm partially-threaded guidewire at the superior calcar into subchondral bone of the head/neck as a derotation wire.? I took AP and lateral radiographs to confirm this. Made a 3 incision proximal lateral aspect of the femur. Next used the lateral guide for the synthes FNS guidewire, passed through middle of femoral neck and head, slightly inferior in the neck. Measured to 102mm, so reamed to 95mm. Assembled the FNS bolt and side plate construct, and passed this through the reamed hole. Impacted into place. Sitting off laterally very slightly, about 5mm on AP xray and with direct palpation. Aligned side plate, passed one fully threaded cross lock screw in the side plate, bicortical, confirmed on xrays. Drilled and inserted for the proximal screw (antirotation) to 95mm. Good purchase. Removed the derotation wire, and inserted the second cross lock screw. The 2 cross locks measured 50mm long, locking, and used the torque limited on these as well as the antirotation screw 4nM. Final xrays taken and saved. Did the near far technique, no penetration or excess length. All screws achieved good solid purchase into the bone.? I thoroughly irrigated the wounds. 10cc 1% lidocaine around the subcutaneous tissues, followed by closure of the TFL with 1 vicryl, subcutaneous with 2-0 vicryl, skin with 3-0 Monocryl.? Steri-Strips and mepilex AG dressing. Patient woken up from a general anesthetic transferred off the operating room table and taken to postanesthetic care unit in stable condition.? All sponge needle instrument counts were correct.? No complications.? Estimated blood loss 100 cc plan to the patient full WB with VTE prophylaxis. FU 2 weeks. Will follow while in hospital. Grafts/Implants Used: Synthes FNS Admit VTE Documentation VTE Present on Admission: Yes VTE Mechan Device Prophylaxis: SCD's VTE Pharm Prophylaxis ordered?: Yes Procedures Musculoskeletal [id number]: Other Procedure See Report
--- NOTE | 2022-03-10 14:43 | EKG12_ITS ---
Test Reason : Blood Pressure : / mmHG Vent. Rate : 097 BPM Atrial Rate : 097 BPM P-R Int : 242 ms QRS Dur : 078 ms QT Int : 352 ms P-R-T Axes : 000 098 015 degrees QTc Int : 447 ms Sinus rhythm with 1st degree A-V block Septal infarct , age undetermined , cannot be excluded Abnormal ECG Confirmed by MADELINE WANG, MARGOT ([id number]), film editor ZOFIA MURPHY ([id number]) on 03/13/2022 11:07:39 AM Referred By: NALLELY Confirmed By:MARGOT CORREA MD
--- NOTE | 2022-03-10 14:50 | RAD_ITS ---
STUDY: X-RAY CHEST REASON FOR EXAM: Male, 66 years old. POST OP TECHNIQUE: Single AP portable view of the chest. COMPARISON: March 10, 2022 at 2:17 AM FINDINGS: Normal heart size. No consolidation is present. The lungs are clear and expanded. There is no demonstrated pleural abnormality. Sternal cerclage wires and vascular clips are present from a prior sternotomy and coronary artery bypass graft procedure (CABG). Normal mediastinum and gene. Normal visualized pulmonary arteries. Normal visualized aortic arch and descending thoracic aorta. Stable osseous structures. There is no demonstrated abnormality of the visualized soft tissue structures of the upper abdomen. RAD/Chest 1 View (Portable) IMPRESSION: No acute process Electronically Signed: Serg Mcguire MD at 15:52 EDT ,
[2022-03-10] MEDS: Ipratropium/Albuterol Sulfate 3 ML AMPUL.NEB INHALATION (15:02)
[2022-03-10 15:26] LABS: Bedside Glucose 165 mg/dL (74-106)
[2022-03-10 15:28] LABS: Troponin-I HS 23 pg/mL (3.0-78.0)
--- NOTE | 2022-03-10 15:42 | CASEMGMT ---
OSWALDO called Freda Wilson at [facility]. OSWALDO asked if patient can return to [facility].rn. Freda said on the weekend there is not anybody here that knows that. Freda said that patient should be ok to return to [facility] once he is medically cleared to return. Yudelka DAWKINS
[2022-03-10 16:50] LABS: Bedside Glucose 146 mg/dL (74-106)
[2022-03-10] MEDS: Menthol/Lanolin/Calamine/Znox 113 GM Tube 1 APPLIC TOPICAL (21:55)
[2022-03-10] MEDS: Clotrimazole 1 APPLIC Tube TOPICAL (21:56)
[2022-03-10] MEDS: Famotidine 20 MG Tablet PO (21:59)
[2022-03-10] MEDS: MELATONIN 3 MG TABLET PO (21:59)
[2022-03-10] MEDS: 0.9% Normal Saline 1,000 ML 100 ML IV (21:59)
[2022-03-10] MEDS: Senna/Docusate Sodium 1 Tablet 2 TABLET PO (21:59)
[2022-03-10] MEDS: Ezetimibe 10 MG Tablet PO (21:59)
[2022-03-10 22:30] LABS: Procalcitonin 0.09 ng/mL (0.00-0.09)
[2022-03-10 22:30] LABS: Bedside Glucose 217 mg/dL (74-106)
[2022-03-11] VITALS (12 sets, daily range): BP systolic 123–150; BP diastolic 65–81; PULSE 93–120; RESP 16–28; TEMP 37–37.7; O2SAT 87–98
[2022-03-11] MEDS: Morphine 2 MG/ML Syringe IV (04:27)
[2022-03-11] MEDS: 0.9% Saline Lock 10 ML Syringe IV (04:27)
--- NOTE | 2022-03-11 05:00 | RAD_ITS ---
EXAM: XR CHEST, 1 VIEW CLINICAL INDICATION: Dyspnea, cough TECHNIQUE: Frontal view of the chest. This report was created using [employer] report generation technology. COMPARISON: March 10, 2022 at 2:48 PM. FINDINGS: LUNGS AND PLEURAL SPACES: No infiltrate or effusion. No pneumothorax. HEART: Unremarkable. Cardiac silhouette not enlarged. MEDIASTINUM: Central airways and mediastinal contour are unremarkable. BONES/JOINTS: Median sternotomy wires again noted. SOFT TISSUES: Unremarkable. RAD/Chest 1 View (Portable) IMPRESSION: Stable chest. No significant acute findings. Electronically Signed: Ada Garcia MD at 6:52 EDT ,
[2022-03-11] MEDS: Insulin Lispro 100 UNIT/ML INSULN.PEN SC ×4 (06:21→21:35)
[2022-03-11 06:32] LABS: Absolute Lymphocyte Count 1.33 X10^3/uL (0.83-4.51); Absolute Neutrophil Count 11.3 X10^3/uL (2.0-7.7); Basophil# 0.05 X10^3/uL; Basophil% 0.3 % (0-1); Eosinophil# 0.46 X10^3/uL; Eosinophils% 3.2 % (0-5); Hematocrit 42.2 % (40-54); Hemoglobin 14.1 g/dL (13.0-16.5); Lymphocyte # 1.33 X10^3/ul (0.83-4.51); Lymphocyte % 9.3 % (19-41); Mean Corp Hgb Conc 33.4 g/dL (32-36); Mean Corpuscular Hgb 30.9 pg (27.0-32.0); Mean Corpuscular Volume 92.5 fL (80-94); Mean Platelet Vol. 10.9 fl (6.2-12.0); Monocyte# 1.09 X10^3/uL; Monocyte% 7.6 % (0-10); NRBC Flagged by Analyzer 0 % (0-5); Neutrophil # 11.29 X10^3/uL (2.7-7.7); Neutrophil % 79.1 % (47-70); Platelet Count 151 K/mm3 (150-450); RBC Distribution Width CV 13.4 % (11.6-14.6); RBC Distribution Width SD 45.4 fl (35.1-43.9); Red Blood Count 4.56 M/mm3 (4.6-6.2); White Blood Count 14.3 K/mm3 (4.4-11.0)
[2022-03-11 06:36] LABS: Bedside Glucose 180 mg/dL (74-106)
[2022-03-11 06:57] LABS: Anion Gap 5 (5-15); BUN 11 mg/dL (7-18); BUN/Creat Ratio 10.7 RATIO (10-20); Chloride 106 mmol/L (98-107); Creatinine, Serum 1.03 mg/dL (0.70-1.30); EST Glomerular Filtration Rate 76 mL/min (>60); Est Glom Filt Rate - Afr Amer 92 mL/min (>60); Estimated Creatinine Clearance 73.11 ml/min; Glucose 183 mg/dL (74-106); Potassium 4.1 mmol/L (3.5-5.1); Sodium Level 138 mmol/L (136-145)
[2022-03-11] MEDS: Budesonide Respules 0.5 MG/2 ML AMPUL.NEB. INHALATION ×2 (07:51→19:18)
[2022-03-11] MEDS: Losartan Potassium 50 MG Tablet PO (08:28)
[2022-03-11] MEDS: Famotidine 20 MG Tablet PO ×2 (08:28→21:33)
[2022-03-11] MEDS: Aspirin 81 MG TAB.CHEW PO (08:28)
[2022-03-11] MEDS: Menthol/Lanolin/Calamine/Znox 113 GM Tube 1 APPLIC TOPICAL ×2 (08:29→21:34)
[2022-03-11] MEDS: Folic Acid 1 MG Tablet PO (08:29)
[2022-03-11] MEDS: Furosemide 20 MG Tablet PO (08:29)
[2022-03-11] MEDS: Senna/Docusate Sodium 1 Tablet 2 TABLET PO ×2 (08:29→21:33)
[2022-03-11] MEDS: Insulin Glargine-YFGN 100 UNIT/ML Pen 34 UNIT SC (08:31)
--- NOTE | 2022-03-11 08:43 | PN.ORTHO_ITS ---
Subjective Subjective POD 1 left hip synthes FNS for NOF. Doing well, some pain and required assist x 3 to sit up to edge of bed. Objective Data Objective Data Vital Signs: Vital Signs Temp Pulse Resp BP Pulse Ox O2 Del Method O2 Flow Rate 98.6 F 99 16 129/72 H 91 Room Air 2 03/11/22 04:05 03/11/22 07:51 03/11/22 07:51 03/11/22 04:05 03/11/22 07:51 03/11/22 07:51 03/11/22 04:04 Oxygen Flow Rate (L/min) 2 Oxygen Delivery Method Room Air Weight: 242 lb 11.663 oz Body Mass Index (BMI) 32.9 Intake & Output: Intake and Output for Last 24 Hours 03/09/22 03/10/22 03/11/22 23:59 23:59 23:59 Intake Total 4574.59 / 4574.59 Output Total 1300 / 1650 625 / 625 Balance 3274.59 / 2924.59 -625 / -625 Lab / Micro Data Attestation: I reviewed the patient's lab results. Result Diagrams: 03/11/22 06:00 03/11/22 06:00 Labs: Laboratory Results - last 24 hr 03/10/22 01:45: Procalcitonin 0.09 03/10/22 12:45: WBC 19.0 H, RBC 4.57 L, Hgb 14.0, Hct 42.6, MCV 93.2, MCH 30.6, MCHC 32.9, RDW Std Deviation 45.1 H, RDW Coeff of Fred 13.2, Plt Count 178, MPV 11.5 03/10/22 14:55: Troponin I High Sens 23 03/10/22 15:04: POC Glucose 165 H 03/10/22 16:21: POC Glucose 146 H 03/10/22 21:54: POC Glucose 217 H 03/11/22 06:00: WBC 14.3 H, RBC 4.56 L, Hgb 14.1, Hct 42.2, MCV 92.5, MCH 30.9, MCHC 33.4, RDW Std Deviation 45.4 H, RDW Coeff of Fred 13.4, Plt Count 151, MPV 10.9, Immature Gran % (Auto) 0.500, Neut % (Auto) 79.1 H, Lymph % (Auto) 9.3 L, [place] % (Auto) 7.6, Eos % (Auto) 3.2, Baso % (Auto) 0.3, Absolute Neuts (auto) 11.3 H, Absolute Lymphs (auto) 1.33, Nucleated RBC % 0 03/11/22 06:00: Sodium 138, Potassium 4.1, Chloride 106, Carbon Dioxide 27.0, Anion Gap 5, BUN 11, Creatinine 1.03, Estim Creat Clear Calc 73.11, Est GFR (MDRD) Af Amer 92, Est GFR (MDRD) Non-Af 76, BUN/Creatinine Ratio 10.7, Glucose 183 H, Calcium 8.0 L 03/11/22 06:13: POC Glucose 180 H ABG Data ABG results: ABG 03/10/22 12:35 Specimen Type ART pH 7.41 Bicarbonate Actual 24.9 Total CO2 26 Base Excess 0 O2 Saturation 94 L O2 % 21 ABG pCO2 39.1 ABG pO2 70 L Radiography Diagnostic Testing: Radiology Impression Hip X-Ray 03/10/22 12:30 IMPRESSION: Status post hardware fixation of the left femur subcapital fracture fragments Electronically Signed: Serg Mcguire MD at 15:34 EDT Reading Location ID and State: [facility] / [place] , Service support , Chest X-Ray 03/10/22 14:50 IMPRESSION: No acute process Electronically Signed: Serg Mcguire MD at 15:52 EDT , Chest X-Ray 03/11/22 05:00 IMPRESSION: Stable chest. No significant acute findings. Electronically Signed: Ada Garcia MD at 6:52 EDT , Physical Exam Const alert and no apparent distress; Negative for oriented x3 Constitutional Narrative: responds appropriately, but minimally oriented. re-oriented to time and date / place. General Appearance: cooperative HEENT normocephalic Resp normal respiratory effort Cardio regular rate Extremity normal capillary refill and no calf tenderness Extremity Narrative: Some mild dressing strikethrough proximal end, dried no active bleeding. Thigh soft, non tender. Normal sens and motor function to the foot left side. General Extremity: Negative for atrophy or calf tenderness Assessment & Plan Assessment/Plan (1) Closed left hip fracture: PLAN: Mobilize WBAT. Start xarelto for VTE. Pain control. Hospitalist to continue to monitor DM and BP. Will follow.
[2022-03-11] MEDS: Acetaminophen 325 MG Tablet 650 MG PO ×2 (11:05→21:38)
[2022-03-11 11:36] LABS: Bedside Glucose 285 mg/dL (74-106)
--- NOTE | 2022-03-11 12:29 | PCM.PN.HOSP ---
Subjective Subjective Patient was seen and examined today, his vitals appear stable at this time, patient is alert but he does not carry on a conversation with this examiner, when I ask him a question about a scar on his right forearm, patient was not able to tell me what happened to cause a scar, he would not carry on a conversation and apologized to me. Patient's white blood cell count today was 14.3, T-max today was 99.9. Patient has no obvious sign of infection at this time. Objective Data Objective Data Vital Signs: Vital Signs Temp Pulse Resp BP Pulse Ox O2 Del Method O2 Flow Rate 99.9 F H 109 H 16 133/68 H 92 Room Air 2 03/11/22 11:19 03/11/22 11:19 03/11/22 11:19 03/11/22 11:19 03/11/22 11:19 03/11/22 11:19 03/11/22 09:56 Oxygen Flow Rate (L/min) 2 Oxygen Delivery Method Room Air Weight: 110.1 kg Body Mass Index (BMI) 32.9 Intake & Output: Intake and Output for Last 24 Hours 03/09/22 03/10/22 03/11/22 23:59 23:59 23:59 Intake Total 4574.59 / 4574.59 350 / 350 Output Total 1300 / 1650 625 / 625 Balance 3274.59 / 2924.59 -275 / -275 Lab / Micro Data Result Diagrams: 03/11/22 06:00 03/11/22 06:00 Labs: Laboratory Results - last 24 hr 03/10/22 01:45: Procalcitonin 0.09 03/10/22 12:45: WBC 19.0 H, RBC 4.57 L, Hgb 14.0, Hct 42.6, MCV 93.2, MCH 30.6, MCHC 32.9, RDW Std Deviation 45.1 H, RDW Coeff of Fred 13.2, Plt Count 178, MPV 11.5 03/10/22 14:55: Troponin I High Sens 23 03/10/22 15:04: POC Glucose 165 H 03/10/22 16:21: POC Glucose 146 H 03/10/22 21:54: POC Glucose 217 H 03/11/22 06:00: WBC 14.3 H, RBC 4.56 L, Hgb 14.1, Hct 42.2, MCV 92.5, MCH 30.9, MCHC 33.4, RDW Std Deviation 45.4 H, RDW Coeff of Fred 13.4, Plt Count 151, MPV 10.9, Immature Gran % (Auto) 0.500, Neut % (Auto) 79.1 H, Lymph % (Auto) 9.3 L, [place] % (Auto) 7.6, Eos % (Auto) 3.2, Baso % (Auto) 0.3, Absolute Neuts (auto) 11.3 H, Absolute Lymphs (auto) 1.33, Nucleated RBC % 0 03/11/22 06:00: Sodium 138, Potassium 4.1, Chloride 106, Carbon Dioxide 27.0, Anion Gap 5, BUN 11, Creatinine 1.03, Estim Creat Clear Calc 73.11, Est GFR (MDRD) Af Amer 92, Est GFR (MDRD) Non-Af 76, BUN/Creatinine Ratio 10.7, Glucose 183 H, Calcium 8.0 L 03/11/22 06:13: POC Glucose 180 H 03/11/22 11:00: POC Glucose 285 H ABG Data ABG results: ABG 03/10/22 12:35 Specimen Type ART pH 7.41 Bicarbonate Actual 24.9 Total CO2 26 Base Excess 0 O2 Saturation 94 L O2 % 21 ABG pCO2 39.1 ABG pO2 70 L Radiography Diagnostic Testing: Radiology Impression Hip X-Ray 03/10/22 12:30 IMPRESSION: Status post hardware fixation of the left femur subcapital fracture fragments Electronically Signed: Serg Mcguire MD at 15:34 EDT Reading Location ID and State: [address] [place] [address] , Service support , Chest X-Ray 03/10/22 14:50 IMPRESSION: No acute process Electronically Signed: Serg Mcguire MD at 15:52 EDT Reading Location ID and State: [facility] / [place] , Service support , Chest X-Ray 03/11/22 05:00 IMPRESSION: Stable chest. No significant acute findings. Electronically Signed: Ada Garcia MD at 6:52 EDT , Physical Exam Const alert and no apparent distress Constitutional Narrative: Patient appears older than his stated age General Appearance: cooperative, well kempt and well developed Orientation / Consciousness: awake HEENT normocephalic, head/scalp atraumatic and moist oral mucous membranes Eyes PERRL, EOMs intact bilaterally and conjunctivae normal Neck supple, no JVD, thyroid normal and no carotid bruits General: trachea midline Resp normal respiratory effort, no retractions, no use of accessory muscles and clear to auscultation bilaterally Auscultation: Negative for rales, rhonchi or wheezes Cardio regular rate, regular rhythm, S1 normal heart sound, S2 normal heart sound, no murmurs, no rub and no gallops GI normal to inspection, nondistended, normoactive bowel sounds, soft to palpation, non-tender and non-distended Extremity no clubbing, cyanosis or edema Skin no rashes or lesions noted General Skin Exam: no breakdown Neuro CN's II-XII intact bilaterally, no focal motor deficits and no sensory deficits noted Neuro Narrative: Patient is alert, he is unable to carry on a conversation with this examiner but does say a few words. Sensorium / Orientation: awake and alert Psych Psych Narrative: Patient's affect is flat, he is able to communicate with short sentences, he does not respond appropriately however to some questions. Assessment & Plan Assessment/Plan (1) Closed left hip fracture: PLAN: Plan 1. Closed left femoral neck fracture secondary to osteoporosis-postop day #1 ORIF Synthes FNS, PT and OT will see patient, he will need to return to his extended care facility tomorrow if he is medically stable and it is okay with orthopedic surgery. #2 type 2 diabetes-continue to monitor blood sugars, sliding scale insulin will be given, patient is on basal insulin also as well as programmed insulin during the day #3 chronic cognitive impairment-exact etiology unclear at this time, I was unable to contact his nursing facility to get any information concerning this, patient had a past history of alcoholism according to his medical record. #4 atherosclerotic heart disease-stable at this time, patient remains on 81 mg of aspirin daily #5 essential hypertension-patient is on losartan #6 hyperlipidemia-patient is on Zetia currently Patient is currently on Xarelto for VTE prophylaxis, this will need to be continued per orthopedic surgery when he returns to his nursing facility. I suspect this will need to be continued for total of 35 days. Charges/Coding Visit Charges Inpatient E&M: 83514 Subs Hosp L2
[2022-03-11] MEDS: Rivaroxaban 10 MG Tablet PO (16:17)
[2022-03-11 16:31] LABS: Bedside Glucose 273 mg/dL (74-106)
[2022-03-11] MEDS: Clotrimazole 1 APPLIC Tube TOPICAL (21:33)
[2022-03-11] MEDS: MELATONIN 3 MG TABLET PO (21:33)
[2022-03-11] MEDS: Ezetimibe 10 MG Tablet PO (21:33)
[2022-03-11] MEDS: oxyCODONE 5 MG Tablet PO (21:38)
[2022-03-12] VITALS (13 sets, daily range): BP systolic 121–151; BP diastolic 66–78; PULSE 98–108; RESP 18–20; TEMP 36.3–37.6; O2SAT 91–96
[2022-03-12 00:26] LABS: Bedside Glucose 287 mg/dL (74-106)
[2022-03-12] MEDS: Insulin Lispro 100 UNIT/ML INSULN.PEN SC ×4 (06:13→20:52)
[2022-03-12 06:36] LABS: Bedside Glucose 214 mg/dL (74-106)
[2022-03-12] MEDS: Budesonide Respules 0.5 MG/2 ML AMPUL.NEB. INHALATION ×2 (07:12→19:53)
--- NOTE | 2022-03-12 07:52 | PN.HOSP_ITS ---
Subjective Subjective Patient is a 66-year-old gentleman who presented with a nonsyncopal fall found to have left femoral neck fracture admitted with consultation placed orthopedic surgery patient underwent surgical repair on 03/10/2022 Objective Data Objective Data Vital Signs: Vital Signs Temp Pulse Resp BP Pulse Ox O2 Del Method O2 Flow Rate 97.4 F L 101 H 18 121/71 H 96 Nasal Cannula 3 03/12/22 02:48 03/12/22 02:49 03/12/22 02:48 03/12/22 02:48 03/12/22 02:48 03/12/22 02:49 03/12/22 02:49 Oxygen Flow Rate (L/min) 3 Oxygen Delivery Method Nasal Cannula Weight: 112.3 kg Body Mass Index (BMI) 32.9 Intake & Output: Intake and Output for Last 24 Hours 03/10/22 03/11/22 03/12/22 23:59 23:59 23:59 Intake Total 4574.59 / 4574.59 800 / 800 Output Total 1300 / 1650 1425 / 1425 750 / 750 Balance 3274.59 / 2924.59 -625 / -625 -750 / -750 Lab / Micro Data Result Diagrams: 03/11/22 06:00 03/11/22 06:00 Labs: Laboratory Results - last 24 hr 03/11/22 11:00: POC Glucose 285 H 03/11/22 16:09: POC Glucose 273 H 03/11/22 21:27: POC Glucose 287 H 03/12/22 06:11: POC Glucose 214 H Physical Exam Narrative GENERAL: Very slow to respond HEENT: Atraumatic; normocephalic EYES; Anicteric, Normal Conjunctiva NECK; supple, normal thyroid, RESPIRATORY: Diminished to auscultation CARDIOVASCULAR: Regular S1 S2, GI: soft, normoactive bowel sounds, : No Renal angle tenderness; EXTREMITIES: No edema, no clubbing, MUSCULOSKELETAL: no muscle wasting NEURO: Awake; no lateralizing signs. SKIN: No Rash PSYCH; Flat affect Const alert and no apparent distress Constitutional Narrative: Patient appears older than his stated age General Appearance: cooperative, well kempt and well developed Orientation / Consciousness: awake HEENT normocephalic, head/scalp atraumatic and moist oral mucous membranes Eyes PERRL, EOMs intact bilaterally and conjunctivae normal Neck supple, no JVD, thyroid normal and no carotid bruits General: trachea midline Resp normal respiratory effort, no retractions, no use of accessory muscles and clear to auscultation bilaterally Auscultation: Negative for rales, rhonchi or wheezes Cardio regular rate, regular rhythm, S1 normal heart sound, S2 normal heart sound, no murmurs, no rub and no gallops GI normal to inspection, nondistended, normoactive bowel sounds, soft to palpation, non-tender and non-distended Extremity no clubbing, cyanosis or edema Skin no rashes or lesions noted General Skin Exam: no breakdown Neuro CN's II-XII intact bilaterally, no focal motor deficits and no sensory deficits noted Neuro Narrative: Patient is alert, he is unable to carry on a conversation with this examiner but does say a few words. Sensorium / Orientation: awake and alert Psych Psych Narrative: Patient's affect is flat, he is able to communicate with short sentences, he do es not respond appropriately however to some questions. Assessment & Plan Assessment/Plan (1) Closed left hip fracture: PLAN: Plan Patient is a 66-year-old gentleman who presented with a nonsyncopal fall found to have left femoral neck fracture admitted with consultation placed orthopedic surgery patient underwent surgical repair on 03/10/2022 1. Left hip fracture (left femoral neck fracture) ? Status post ORIF on 03/10/[address] Raul Ellison. 2. Diabetes mellitus type II -patient's oral hypoglycemics held. Placed on long acting insulin, Accu-Cheks a.c. and at bedtime and covered with sliding scale insulin 3. Hypertension - Blood pressure controlled, home medications continued with dose adjustment as needed 4. Dyslipidemia ? Patient is on Zetia 6. Coronary artery disease ? Per history patient is on antiplatelet therapy with aspirin 7. DVT prophylaxis ? On Xarelto Charges/Coding Visit Charges Inpatient E&M: 12737 Subs Hosp L2
[2022-03-12] MEDS: Folic Acid 1 MG Tablet PO (08:24)
[2022-03-12] MEDS: Insulin Glargine-YFGN 100 UNIT/ML Pen 34 UNIT SC (08:24)
[2022-03-12] MEDS: Senna/Docusate Sodium 1 Tablet 2 TABLET PO ×2 (08:24→20:41)
[2022-03-12] MEDS: Aspirin 81 MG TAB.CHEW PO (08:25)
[2022-03-12] MEDS: Losartan Potassium 50 MG Tablet PO (08:25)
[2022-03-12] MEDS: Menthol/Lanolin/Calamine/Znox 113 GM Tube 1 APPLIC TOPICAL ×2 (08:25→20:54)
[2022-03-12] MEDS: Furosemide 20 MG Tablet PO (08:25)
[2022-03-12] MEDS: Famotidine 20 MG Tablet PO ×2 (08:25→20:41)
--- NOTE | 2022-03-12 11:48 | CASEMGMT ---
Social Work SW called [facility] to check on pt return and confirm. SW left message with Warner, the review coordinator, requesting a call back to confirm pt can return and to provide any info regarding the need for precert or a PASSR. Left contact info. SW attempted to call facility as well and there was no answer. Phone continued to ring and no option of leaving message. KEITH Araiza
[2022-03-12 12:06] LABS: Bedside Glucose 324 mg/dL (74-106)
--- NOTE | 2022-03-12 12:58 | CASEMGMT ---
Discharge Quiller Operator This song writer sent update to [facility]. [facility]
--- NOTE | 2022-03-12 14:58 | PCM.PN.ORT ---
Subjective Subjective POD hip FNS for NOF. Spoke to his nurse and reviewed the progress note from hospitalist. Still a 2 person assist. No acute concerns. Is in a shelter before this [facility]. Objective Data Objective Data Vital Signs: Vital Signs Temp Pulse Resp BP Pulse Ox O2 Del Method O2 Flow Rate 98.4 F 100 20 H 151/78 H 95 Room Air 2 03/12/22 09:33 03/12/22 09:33 03/12/22 09:33 03/12/22 09:33 03/12/22 09:33 03/12/22 09:33 03/12/22 09:33 Oxygen Flow Rate (L/min) 2 Oxygen Delivery Method Room Air Weight: 247 lb 9.266 oz Body Mass Index (BMI) 32.9 Intake & Output: Intake and Output for Last 24 Hours 03/10/22 03/11/22 03/12/22 23:59 23:59 23:59 Intake Total 4574.59 / 4574.59 800 / 800 500 / 500 Output Total 1300 / 1650 1425 / 1425 750 / 750 Balance 3274.59 / 2924.59 -625 / -625 -250 / -250 Lab / Micro Data Result Diagrams: 03/11/22 06:00 03/11/22 06:00 Labs: Laboratory Results - last 24 hr 03/11/22 16:09: POC Glucose 273 H 03/11/22 21:27: POC Glucose 287 H 03/12/22 06:11: POC Glucose 214 H 03/12/22 11:41: POC Glucose 324 H Assessment & Plan Assessment/Plan (1) Closed left hip fracture: PLAN: Plan Plan to mobilize patient WBAT. A 2 person assist today. If safe to mobilize, could discharge to nursing facility if cleared by PT moving forward. Will follow.
--- NOTE | 2022-03-12 15:39 | CASEMGMT ---
Social Work SW met with pt this morning to determine return to [facility]. Pt confused, unable to share where he had been previous to admitting at [facility]. SW bernal pt son, Jacky, to discuss. Jacky declined new SNF list, stated would like pt to go back to [facility] however possible. OSWALDO explained with hip fracture pt likely will need rehab and can complete it at [facility]. Jacky agreeable. Call to [facility] to update. Vicky started precert for pt to transfer under skilled level of care this AM. PLAN: [facility], pending precert KEITH Araiza
[2022-03-12] MEDS: Rivaroxaban 10 MG Tablet PO (16:23)
[2022-03-12] MEDS: Acetaminophen 325 MG Tablet 650 MG PO ×2 (16:27→20:49)
[2022-03-12 16:50] LABS: Bedside Glucose 327 mg/dL (74-106)
[2022-03-12] MEDS: MELATONIN 3 MG TABLET PO (20:41)
[2022-03-12] MEDS: Ezetimibe 10 MG Tablet PO (20:41)
[2022-03-12] MEDS: oxyCODONE 5 MG Tablet PO (20:48)
[2022-03-12] MEDS: Clotrimazole 1 APPLIC Tube TOPICAL (20:52)
[2022-03-12 21:21] LABS: Bedside Glucose 240 mg/dL (74-106)
[2022-03-13] VITALS (7 sets, daily range): BP systolic 110–133; BP diastolic 56–75; PULSE 68–92; RESP 16–20; TEMP 36.7–37; O2SAT 91–95
[2022-03-13] MEDS: Insulin Lispro 100 UNIT/ML INSULN.PEN SC ×4 (05:50→21:07)
[2022-03-13] MEDS: Acetaminophen 325 MG Tablet 650 MG PO ×2 (05:56→21:15)
[2022-03-13] MEDS: oxyCODONE 5 MG Tablet PO ×2 (05:56→21:15)
[2022-03-13 06:16] LABS: Bedside Glucose 187 mg/dL (74-106)
[2022-03-13 06:49] LABS: Absolute Lymphocyte Count 2.15 X10^3/uL (0.83-4.51); Absolute Neutrophil Count 9.3 X10^3/uL (2.0-7.7); Basophil# 0.06 X10^3/uL; Basophil% 0.5 % (0-1); Eosinophil# 0.56 X10^3/uL; Eosinophils% 4.2 % (0-5); Hematocrit 39.3 % (40-54); Hemoglobin 13.5 g/dL (13.0-16.5); Lymphocyte # 2.15 X10^3/ul (0.83-4.51); Lymphocyte % 16.1 % (19-41); Mean Corp Hgb Conc 34.4 g/dL (32-36); Mean Corpuscular Hgb 31.3 pg (27.0-32.0); Mean Platelet Vol. 11.4 fl (6.2-12.0); Monocyte# 1.21 X10^3/uL; Monocyte% 9.1 % (0-10); NRBC Flagged by Analyzer 0 % (0-5); Neutrophil # 9.29 X10^3/uL (2.7-7.7); Neutrophil % 69.6 % (47-70); Platelet Count 177 K/mm3 (150-450); RBC Distribution Width CV 13.4 % (11.6-14.6); RBC Distribution Width SD 45.1 fl (35.1-43.9); Red Blood Count 4.32 M/mm3 (4.6-6.2); White Blood Count 13.3 K/mm3 (4.4-11.0)
[2022-03-13 07:13] LABS: Anion Gap 5 (5-15); BUN 15 mg/dL (7-18); BUN/Creat Ratio 16.4 RATIO (10-20); Calcium,Total 8.3 mg/dL (8.5-10.1); Chloride 105 mmol/L (98-107); Creatinine, Serum 0.92 mg/dL (0.70-1.30); EST Glomerular Filtration Rate 87 mL/min (>60); Est Glom Filt Rate - Afr Amer 106 mL/min (>60); Estimated Creatinine Clearance 81.85 ml/min; Glucose 190 mg/dL (74-106); Magnesium 2.2 mg/dL (1.6-2.6); Potassium 3.5 mmol/L (3.5-5.1); Sodium Level 138 mmol/L (136-145)
[2022-03-13] MEDS: Budesonide Respules 0.5 MG/2 ML AMPUL.NEB. INHALATION ×2 (07:31→19:09)
[2022-03-13] MEDS: Insulin Glargine-YFGN 100 UNIT/ML Pen 34 UNIT SC (08:17)
[2022-03-13] MEDS: Aspirin 81 MG TAB.CHEW PO (08:18)
[2022-03-13] MEDS: Folic Acid 1 MG Tablet PO (08:18)
--- NOTE | 2022-03-13 08:19 | PN.HOSP_ITS ---
Subjective Subjective Patient seen, had a relatively uneventful night. Awaiting insurance precertification prior to transfer to assisted facility Objective Data Objective Data Vital Signs: Vital Signs Temp Pulse Resp BP Pulse Ox O2 Del Method O2 Flow Rate 98.0 F 92 16 111/56 L 92 Room Air 0 03/13/22 08:14 03/13/22 08:14 03/13/22 08:14 03/13/22 08:14 03/13/22 08:14 03/13/22 08:14 03/13/22 08:14 Oxygen Flow Rate (L/min) 0 Oxygen Delivery Method Room Air Weight: 111.6 kg Body Mass Index (BMI) 32.9 Intake & Output: Intake and Output for Last 24 Hours 03/11/22 03/12/22 03/13/22 23:59 23:59 23:59 Intake Total 800 / 800 900 / 900 Output Total 1425 / 1425 1150 / 1150 300 / 300 Balance -625 / -625 -250 / -250 -300 / -300 Lab / Micro Data Result Diagrams: 03/13/22 06:23 03/13/22 06:23 Labs: Laboratory Results - last 24 hr 03/12/22 11:41: POC Glucose 324 H 03/12/22 16:20: POC Glucose 327 H 03/12/22 20:39: POC Glucose 240 H 03/13/22 05:48: POC Glucose 187 H 03/13/22 06:23: WBC 13.3 H, RBC 4.32 L, Hgb 13.5, Hct 39.3 L, MCV 91.0, MCH 31 .3, MCHC 34.4, RDW Std Deviation 45.1 H, RDW Coeff of Fred 13.4, Plt Count 177, MPV 11.4, Immature Gran % (Auto) 0.500, Neut % (Auto) 69.6, Lymph % (Auto) 16.1 L, [place] % (Auto) 9.1, Eos % (Auto) 4.2, Baso % (Auto) 0.5, Absolute Neuts (auto) 9.3 H, Absolute Lymphs (auto) 2.15, Nucleated RBC % 0 03/13/22 06:23: Sodium 138, Potassium 3.5, Chloride 105, Carbon Dioxide 28.0, Anion Gap 5, BUN 15, Creatinine 0.92, Estim Creat Clear Calc 81.85, Est GFR (MDRD) Af Amer 106, Est GFR (MDRD) Non-Af 87, BUN/Creatinine Ratio 16.4, Glucose 190 H, Calcium 8.3 L, Magnesium 2.2 Physical Exam Narrative GENERAL: Very slow to respond HEENT: Atraumatic; normocephalic EYES; Anicteric, Normal Conjunctiva NECK; supple, normal thyroid, RESPIRATORY: Diminished to auscultation CARDIOVASCULAR: Regular S1 S2, GI: soft, normoactive bowel sounds, : No Renal angle tenderness; EXTREMITIES: No edema, no clubbing, MUSCULOSKELETAL: no muscle wasting NEURO: Awake; no lateralizing signs. SKIN: No Rash PSYCH; Flat affect Assessment & Plan Assessment/Plan (1) Closed left hip fracture: PLAN: Plan Patient is a 66-year-old gentleman who presented with a nonsyncopal fall found to have left femoral neck fracture admitted with consultation placed orthopedic surgery patient underwent surgical repair on 03/10/2022 1. Left hip fracture (left femoral neck fracture) ? Status post ORIF on 03/10/[address] Raul Ellison. -03/13/2022; Patient seen, had a relatively uneventful night. Awaiting insu tisha precertification prior to transfer to assisted facility 2. Diabetes mellitus type II -patient's oral hypoglycemics held. Placed on long acting insulin, Accu-Cheks a.c. and at bedtime and covered with sliding scale insulin 3. Hypertension - Blood pressure controlled, home medications continued with dose adjustment as needed 4. Dyslipidemia ? Patient is on Zetia 6. Coronary artery disease ? Per history patient is on antiplatelet therapy with aspirin 7. DVT prophylaxis ? On Xarelto Charges/Coding Visit Charges Inpatient E&M: 36795 Subs Hosp L2
--- NOTE | 2022-03-13 09:13 | PCM.TXEXTCAR ---
Diet Diet Order/Speech Therapy: 03/10/22 17:52 ADA [Diet: Cardiac: Calorie-Controlled] Is pt able to select menu?: No Diet Comments: advance as eliza How many daily calories?: 1800 calorie Wound(s) rt buttock: Wound Type: Abrasion LEFT HIP: Wound Type: Surgical Incision Therapies Weight Bearing: Full weight bearing Physical Therapy: Eval and Treat Occupational Therapy: Eval and Treat Problem/Diagnosis (1) Closed left hip fracture: Status: Acute Code(s): S72.002A - Fracture of unspecified part of neck of left femur, initial encounter for closed fracture Plan Patient is a 66-year-old gentleman who presented with a nonsyncopal fall found to have left femoral neck fracture admitted with consultation placed orthopedic surgery patient underwent surgical repair on 03/10/2022 1. Left hip fracture (left femoral neck fracture) ? Status post ORIF on 03/10/[address] Raul Ellison. -03/13/2022; Patient seen, had a relatively uneventful night. Awaiting insurance precertification prior to transfer to group home facility 2. Diabetes mellitus type II -patient's oral hypoglycemics held. Placed on long acting insulin, Accu-Cheks a.c. and at bedtime and covered with sliding scale insulin 3. Hypertension - Blood pressure controlled, home medications continued with dose adjustment as needed 4. Dyslipidemia ? Patient is on Zetia 6. Coronary artery disease ? Per history patient is on antiplatelet therapy with aspirin 7. DVT prophylaxis ? On Xarelto Allergies/Procedures Done in Hospital Allergies Pimiges-XID-BbT Reductase Inhibitor [Xpstppb-Sdk-Vkw Reductase Inhibitor] Allergy (Verified 03/10/22 01:31) Swelling of joints Type of Care/Length of Stay Estimated LOS: Convalescent Care Less Than 30 days Type of Care Needed: Skilled Rehab Potential: Good Prognosis: Good Additional Orders/Day of Discharge Day of Discharge: 03/13/22 Dietary and Speech Recommendations Dietitian Recommendations/Changes: recommend advance diet as tolerated to carbohydrate controlled, cardiac diet; will monitor need for ONS after PO diet is advanced. Discharge Plan Admission Admit Date/Time: 03/10/22 03:14 Attending Provider: Enrique Corrales Primary Care Provider: Aysha Barron Consulting Providers: Raul Ellison ; Jocelin Rollins ; Gurwinder Bo Discharge Orders/Prescriptions Prescriptions: New acetaminophen [Tylenol] 325 mg Tablet 650 mg PO Q4H PRN PRN (Reason: Fever, pain 1-03/05) Qty: 0 0RF albuterol sulfate 2.5 mg /3 mL (0.083 %) Solution For Nebulization 2.5 mg inhalation Q2H PRN PRN (Reason: Dyspnea, wheezing) Qty: 0 0RF sennosides-docusate sodium [Stool Softener-Stimulant Laxat] 8.6-50 mg Tablet 2 tab PO BID Qty: 0 0RF famotidine 20 mg Tablet 20 mg PO BID Qty: 0 0RF budesonide 0.5 mg/2 mL Suspension For Nebulization 0.5 mg inhalation BID.RT Qty: 0 0RF alum-mag hydroxide-simeth [Mag-Al Plus Extra Strength] 400-400-40 mg/5 mL Suspension 30 ml PO Q6H PRN PRN (Reason: Gastric Burning) Qty: 0 0RF oxycodone 5 mg Tablet 5 mg PO Q4H PRN PRN (Reason: Pain Score 4-10) 3 Days Qty: 12 0RF insulin lispro [Humalog KwikPen Insulin] 100 unit/mL Insulin Pen See Protocol subcut ACHS Qty: 0 0RF Protocol: 4. Sliding Scale Insulin High-Med Dosing Condition: 150-199 mg/dl = 2 units Condition: 200-259 mg/dl = 4 units Condition: 260-324 mg/dl = 6 units Condition: 325-374 mg/dl = 8 units Condition: 375-409 mg/dl = 10 units Condition: 410-449 mg/dl = 11 units Condition: Greater than 449 call physician Protocol Text: - Use for Total Daily Dose of Insulin 56-80 units - Patient who are insulin resistant or septic HIGH MEDIUM DOSING ALGORITHM menthol-zinc oxide [Calmoseptine] 0.44-20.6 % Ointment 1 applic topical BID Qty: 0 0RF Protocol: *Topical Application Instructions APPLICATION INSTRUCTIONS: apply to coccyx Xarelto 10 mg Tablet 10 mg PO DINNER Qty: 35 0RF Continued losartan 50 MG tablet 50 mg PO DAILY folic acid 1 mg Tablet 1 mg PO DAILY furosemide [Lasix] 20 mg Tablet 20 mg PO DAILY insulin lispro [Humalog KwikPen Insulin] 100 unit/mL Insulin Pen 11 unit SUBCUT LUNCH insulin glargine [Lantus Solostar U-100 Insulin] 100 unit/mL (3 mL) Insulin Pen 34 unit SUBCUT DAILY bisacodyl [Dulcolax (bisacodyl)] 10 mg Suppository 10 mg VT DAILY PRN (Reason: Constipation) clotrimazole 2 % Cream 1 appful topical QHS Rx Instructions: apply to toes aspirin 81 mg Capsule 81 mg PO DAILY meclizine 12.5 mg Tablet 25 mg PO DAILY PRN (Reason: Nausea And Vomiting) insulin lispro [Humalog KwikPen Insulin] 100 unit/mL Insulin Pen 15 unit SUBCUT BID ezetimibe [Zetia] 10 mg Tablet 10 mg PO QHS melatonin 3 mg Capsule 3 mg PO QHS Discontinued glipizide 5 MG tablet 10 mg PO DAILY Label Comments: TAKE 1 TABLET BY MOUTH EVERY DAY insulin lispro [Humalog KwikPen Insulin] 100 unit/mL Insulin Pen 0 - 11 unit SUBCUT TIDCM acetaminophen 325 mg Tablet 650 mg PO Q4H PRN (Reason: pain or fever) magnesium hydroxide [Milk of Magnesia] 400 mg/5 mL Suspension 30 ml PO DAILY PRN (Reason: Constipation) Referrals / Follow Up: Aysha Barron MD [Primary Care Provider] - Within 1 Week Raul Ellison MD [Med Staff - Active Staff] - Within 2 Weeks Disposition Disposition (needs filled in before D/C Order can be placed): Long-Term Facility
[2022-03-13] MEDS: Losartan Potassium 50 MG Tablet PO (09:14)
[2022-03-13] MEDS: Furosemide 20 MG Tablet PO (09:14)
[2022-03-13] MEDS: Menthol/Lanolin/Calamine/Znox 113 GM Tube 1 APPLIC TOPICAL ×2 (09:14→21:10)
[2022-03-13] MEDS: Famotidine 20 MG Tablet PO ×2 (09:15→21:10)
[2022-03-13] MEDS: Senna/Docusate Sodium 1 Tablet 2 TABLET PO ×2 (09:15→21:10)
--- NOTE | 2022-03-13 09:44 | PCM.DC.SUM ---
Providers Date of Admission: 03/10/22 Date of Discharge: 03/13/22 Primary Care Physician: Dr. Aysha Barron MD Consultations 03/10/22 04:16 Consult: Orthopedics Routine Consulting Provider: Raul Ellison Reason for Consult: Fall, L hip fracture EMERGENT Consult: No MD Notified: Yes Date Notified: 03/10/22 Time Notified: 03:20 Method of Notification: ED Physician Initiated Reason For Visit: FALL, L HIP FRACTURE Diagnosis Discharge Diagnosis (1) Closed left hip fracture: Status: Acute Code(s): S72.002A - Fracture of unspecified part of neck of left femur, initial encounter for closed fracture Plan Patient is a 66-year-old gentleman who presented with a nonsyncopal fall found to have left femoral neck fracture admitted with consultation placed orthopedic surgery patient underwent surgical repair on 03/10/2022 1. Left hip fracture (left femoral neck fracture) ? Status post ORIF on 03/10/[address] Raul Ellison. -03/13/2022; Patient seen, had a relatively uneventful night. Awaiting insurance precertification prior to transfer to intermediate facility 2. Diabetes mellitus type II -patient's oral hypoglycemics held. Placed on long acting insulin, Accu-Cheks a.c. and at bedtime and covered with sliding scale insulin 3. Hypertension - Blood pressure controlled, home medications continued with dose adjustment as needed 4. Dyslipidemia ? Patient is on Zetia 6. Coronary artery disease ? Per history patient is on antiplatelet therapy with aspirin 7. DVT prophylaxis ? On Xarelto Medications at Discharge Home Medications losartan 50 mg tablet 50 mg PO DAILY bp 07/27/19 folic acid 1 mg tablet 1 mg PO DAILY vitamin deficiency 12/20/20 furosemide 20 mg tablet (Lasix) 20 mg PO DAILY water pill 12/20/20 insulin glargine 100 unit/mL (3 mL) subcutaneous pen (Lantus Solostar U-100 Insulin) 34 unit subcut DAILY diabetes 12/20/20 insulin lispro 100 unit/mL subcutaneous pen (Humalog KwikPen (U-100) Insulin) 11 unit subcut LUNCH diabetes 12/20/20 aspirin 81 mg capsule 81 mg PO DAILY 03/10/22 bisacodyl 10 mg rectal suppository (Dulcolax (bisacodyl)) 10 mg IN DAILY PRN Constipation 03/10/22 clotrimazole 2 % vaginal cream 1 appful topical QHS toe fungus 03/10/22 ezetimibe 10 mg tablet (Zetia) 10 mg PO QHS diabetes 03/10/22 insulin lispro 100 unit/mL subcutaneous pen (Humalog KwikPen (U-100) Insulin) 15 unit subcut BID diabetes 03/10/22 meclizine 12.5 mg tablet 25 mg PO DAILY PRN Nausea And Vomiting 03/10/22 melatonin 3 mg capsule 3 mg PO QHS insomnia 03/10/22 acetaminophen 325 mg tablet (Tylenol) 650 mg PO Q4H PRN PRN Fever, pain 1-03/05 #0 tabs 03/13/22 albuterol sulfate 2.5 mg/3 mL (0.083 %) solution for nebulization 2.5 mg (3 mL) inhalation Q2H PRN PRN Dyspnea, wheezing #0 mL 03/13/22 aluminum-mag hydroxide-simethicone 400 mg-400 mg-40 mg/5 mL oral susp (Mag-Al Plus Extra Strength) 30 ml PO Q6H PRN PRN Gastric Burning #0 mL 03/13/22 budesonide 0.5 mg/2 mL suspension for nebulization 0.5 mg (2 mL) inhalation BID.RT #0 mL 03/13/22 famotidine 20 mg tablet 20 mg PO BID #0 tabs 03/13/22 insulin lispro 100 unit/mL subcutaneous pen (Humalog KwikPen (U-100) Insulin) See Protocol subcut ACHS #0 mL 03/13/22 menthol 0.44 %-zinc oxide 20.6 % topical ointment (Calmoseptine) 1 applic topical BID #0 grams 03/13/22 oxycodone 5 mg tablet 5 mg PO Q4H PRN PRN Pain Score 4-10 3 days #12 tabs 03/13/22 rivaroxaban 10 mg tablet (Xarelto) 10 mg PO DINNER #35 tabs 03/13/22 sennosides 8.6 mg-docusate sodium 50 mg tablet (Stool Softener-Stimulant Laxative) 2 tab PO BID #0 tabs 03/13/22 Hospital Course Summary of Care Provided Minutes Spent on Discharge: 35 Physical Exam Narrative GENERAL: Very slow to respond HEENT: Atraumatic; normocephalic EYES; Anicteric, Normal Conjunctiva NECK; supple, normal thyroid, RESPIRATORY: Diminished to auscultation CARDIOVASCULAR: Regular S1 S2, GI: soft, normoactive bowel sounds, : No Renal angle tenderness; EXTREMITIES: No edema, no clubbing, MUSCULOSKELETAL: no muscle wasting NEURO: Awake; no lateralizing signs. SKIN: No Rash PSYCH; Flat affect Weight / BMI Weight Weight: 111.6 kg Body Mass Index (BMI) 32.9 ABG / Lab / Microbiology Data Result Diagrams: 03/13/22 06:23 03/13/22 06:23 Laboratory: Laboratory Results - last 24 hr 03/12/22 11:41: POC Glucose 324 H 03/12/22 16:20: POC Glucose 327 H 03/12/22 20:39: POC Glucose 240 H 03/13/22 05:48: POC Glucose 187 H 03/13/22 06:23: WBC 13.3 H, RBC 4.32 L, Hgb 13.5, Hct 39.3 L, MCV 91.0, MCH 31.3, MCHC 34.4, RDW Std Deviation 45.1 H, RDW Coeff of Fred 13.4, Plt Count 177, MPV 11.4, Immature Gran % (Auto) 0.500, Neut % (Auto) 69.6, Lymph % (Auto) 16.1 L, Foster % (Auto) 9.1, Eos % (Auto) 4.2, Baso % (Auto) 0.5, Absolute Neuts (auto) 9.3 H, Absolute Lymphs (auto) 2.15, Nucleated RBC % 0 03/13/22 06:23: Sodium 138, Potassium 3.5, Chloride 105, Carbon Dioxide 28.0, Anion Gap 5, BUN 15, Creatinine 0.92, Estim Creat Clear Calc 81.85, Est GFR (MDRD) Af Amer 106, Est GFR (MDRD) Non-Af 87, BUN/Creatinine Ratio 16.4, Glucose 190 H, Calcium 8.3 L, Magnesium 2.2 D/C Instructions Discharge Diet: 1800 Calorie Control Diet Discharge Activity: Return to Normal Activity Call your doctor if you observe: Fever of 101 or Higher, Shortness of breath, Fainting spells and Chest pain Meaningful Use Info Meaningful Use Diagnoses (Choose all that apply): None applicable Discharge Plan Admission Admit Date/Time: 03/10/22 03:14 Attending Provider: Enrique Corrales Primary Care Provider: Aysha Barron Consulting Providers: Raul Ellison ; Jocelin Rollins ; Gurwinder Bo Discharge Orders/Prescriptions Prescriptions: New acetaminophen [Tylenol] 325 mg Tablet 650 mg PO Q4H PRN PRN (Reason: Fever, pain 1-1010) Qty: 0 0RF albuterol sulfate 2.5 mg /3 mL (0.083 %) Solution For Nebulization 2.5 mg inhalation Q2H PRN PRN (Reason: Dyspnea, wheezing) Qty: 0 0RF sennosides-docusate sodium [Stool Softener-Stimulant Laxat] 8.6-50 mg Tablet 2 tab PO BID Qty: 0 0RF famotidine 20 mg Tablet 20 mg PO BID Qty: 0 0RF budesonide 0.5 mg/2 mL Suspension For Nebulization 0.5 mg inhalation BID.RT Qty: 0 0RF alum-mag hydroxide-simeth [Mag-Al Plus Extra Strength] 400-400-40 mg/5 mL Suspension 30 ml PO Q6H PRN PRN (Reason: Gastric Burning) Qty: 0 0RF oxycodone 5 mg Tablet 5 mg PO Q4H PRN PRN (Reason: Pain Score 4-10) 3 Days Qty: 12 0RF insulin lispro [Humalog KwikPen Insulin] 100 unit/mL Insulin Pen See Protocol subcut ACHS Qty: 0 0RF Protocol: 4. Sliding Scale Insulin High-Med Dosing Condition: 150-199 mg/dl = 2 units Condition: 200-259 mg/dl = 4 units Condition: 260-324 mg/dl = 6 units Condition: 325-374 mg/dl = 8 units Condition: 375-409 mg/dl = 10 units Condition: 410-449 mg/dl = 11 units Condition: Greater than 449 call physician Protocol Text: - Use for Total Daily Dose of Insulin 56-80 units - Patient who are insulin resistant or septic HIGH MEDIUM DOSING ALGORITHM menthol-zinc oxide [Calmoseptine] 0.44-20.6 % Ointment 1 applic topical BID Qty: 0 0RF Protocol: *Topical Application Instructions APPLICATION INSTRUCTIONS: apply to coccyx Xarelto 10 mg Tablet 10 mg PO DINNER Qty: 35 0RF Continued losartan 50 MG tablet 50 mg PO DAILY folic acid 1 mg Tablet 1 mg PO DAILY furosemide [Lasix] 20 mg Tablet 20 mg PO DAILY insulin lispro [Humalog KwikPen Insulin] 100 unit/mL Insulin Pen 11 unit SUBCUT LUNCH insulin glargine [Lantus Solostar U-100 Insulin] 100 unit/mL (3 mL) Insulin Pen 34 unit SUBCUT DAILY bisacodyl [Dulcolax (bisacodyl)] 10 mg Suppository 10 mg IN DAILY PRN (Reason: Constipation) clotrimazole 2 % Cream 1 appful topical QHS Rx Instructions: apply to toes aspirin 81 mg Capsule 81 mg PO DAILY meclizine 12.5 mg Tablet 25 mg PO DAILY PRN (Reason: Nausea And Vomiting) insulin lispro [Humalog KwikPen Insulin] 100 unit/mL Insulin Pen 15 unit SUBCUT BID ezetimibe [Zetia] 10 mg Tablet 10 mg PO QHS melatonin 3 mg Capsule 3 mg PO QHS Discontinued glipizide 5 MG tablet 10 mg PO DAILY Label Comments: TAKE 1 TABLET BY MOUTH EVERY DAY insulin lispro [Humalog KwikPen Insulin] 100 unit/mL Insulin Pen 0 - 11 unit SUBCUT TIDCM acetaminophen 325 mg Tablet 650 mg PO Q4H PRN (Reason: pain or fever) magnesium hydroxide [Milk of Magnesia] 400 mg/5 mL Suspension 30 ml PO DAILY PRN (Reason: Constipation) Referrals / Follow Up: Aysha Barron MD [Primary Care Provider] - Within 1 Week Raul Ellison MD [Med Staff - Active Staff] - Within 2 Weeks Disposition Disposition (needs filled in before D/C Order can be placed): Custodial Facility Charges/Coding Visit Charges Inpatient E&M: 89068 Disch Hosp
[2022-03-13 11:25] LABS: Bedside Glucose 274 mg/dL (74-106)
--- NOTE | 2022-03-13 13:09 | CASEMGMT ---
Social Work SW spoke to Warner at [facility]. Pt's HCPOA is son, Jacky Howe. SW requested Warner send a copy of the document if it is on file with the [facility]. KEITH Araiza
--- NOTE | 2022-03-13 13:49 | CASEMGMT ---
Social work SW reached out to Warner at [facility], via [facility], to inquire about updates on precert. SW to await response. PLAN: [facility], pending precert KEITH Araiza
[2022-03-13 16:16] LABS: Bedside Glucose 248 mg/dL (74-106)
[2022-03-13] MEDS: Rivaroxaban 10 MG Tablet PO (16:39)
[2022-03-13] MEDS: Clotrimazole 1 APPLIC Tube TOPICAL (21:08)
[2022-03-13] MEDS: Ezetimibe 10 MG Tablet PO (21:10)
[2022-03-13] MEDS: MELATONIN 3 MG TABLET PO (21:10)
[2022-03-13 21:31] LABS: Bedside Glucose 298 mg/dL (74-106)
[2022-03-14 03:40] VITALS: BP 132/68; PULSE 86; RESP 18; TEMP 36.6; O2SAT 93
[2022-03-14] MEDS: Insulin Lispro 100 UNIT/ML INSULN.PEN SC ×3 (04:43→16:23)
[2022-03-14 05:06] LABS: Bedside Glucose 157 mg/dL (74-106)
[2022-03-14 06:19] LABS: Absolute Lymphocyte Count 1.92 X10^3/uL (0.83-4.51); Absolute Neutrophil Count 9.2 X10^3/uL (2.0-7.7); Basophil# 0.06 X10^3/uL; Basophil% 0.5 % (0-1); Eosinophil# 0.54 X10^3/uL; Eosinophils% 4.2 % (0-5); Hematocrit 38.9 % (40-54); Hemoglobin 13.2 g/dL (13.0-16.5); Lymphocyte # 1.92 X10^3/ul (0.83-4.51); Lymphocyte % 14.9 % (19-41); Mean Corp Hgb Conc 33.9 g/dL (32-36); Mean Corpuscular Hgb 30.4 pg (27.0-32.0); Mean Corpuscular Volume 89.6 fL (80-94); Mean Platelet Vol. 11.3 fl (6.2-12.0); Monocyte# 1.11 X10^3/uL; Monocyte% 8.6 % (0-10); NRBC Flagged by Analyzer 0 % (0-5); Neutrophil # 9.15 X10^3/uL (2.7-7.7); Neutrophil % 71.2 % (47-70); Platelet Count 187 K/mm3 (150-450); RBC Distribution Width CV 13.3 % (11.6-14.6); Red Blood Count 4.34 M/mm3 (4.6-6.2); White Blood Count 12.9 K/mm3 (4.4-11.0)
[2022-03-14 06:47] LABS: Anion Gap 8 (5-15); BUN 17 mg/dL (7-18); Calcium,Total 8.2 mg/dL (8.5-10.1); Chloride 102 mmol/L (98-107); EST Glomerular Filtration Rate 90 mL/min (>60); Est Glom Filt Rate - Afr Amer 108 mL/min (>60); Estimated Creatinine Clearance 83.67 ml/min; Glucose 180 mg/dL (74-106); Potassium 3.9 mmol/L (3.5-5.1); Sodium Level 135 mmol/L (136-145)
[2022-03-14] MEDS: Budesonide Respules 0.5 MG/2 ML AMPUL.NEB. INHALATION (07:09)
[2022-03-14 07:51] VITALS: BP 140/88; PULSE 87; RESP 16; TEMP 36.8; O2SAT 93
[2022-03-14 07:57] VITALS: PULSE 86; RESP 18; O2SAT 90
[2022-03-14 07:59] VITALS: BP 140/88; PULSE 86; RESP 18; TEMP 36.8; O2SAT 90
[2022-03-14] MEDS: Insulin Glargine-YFGN 100 UNIT/ML Pen 34 UNIT SC (08:04)
[2022-03-14] MEDS: Aspirin 81 MG TAB.CHEW PO (08:05)
[2022-03-14] MEDS: Folic Acid 1 MG Tablet PO (08:05)
[2022-03-14] MEDS: Famotidine 20 MG Tablet PO (10:48)
[2022-03-14] MEDS: Losartan Potassium 50 MG Tablet PO (10:48)
[2022-03-14] MEDS: Furosemide 20 MG Tablet PO (10:48)
[2022-03-14] MEDS: Senna/Docusate Sodium 1 Tablet 2 TABLET PO (10:48)
[2022-03-14] MEDS: Menthol/Lanolin/Calamine/Znox 113 GM Tube 1 APPLIC TOPICAL (10:49)
--- NOTE | 2022-03-14 11:00 | CASEMGMT ---
Addendum entered by Sharlene Jenkins 03/14/22 11:35: OSWALDO called [facility]. Spoke to Warner. Warner shared if pt is denied skilled level of care through insurance that therapy will still pick him up and facility will work on getting authorization for therapy under medicare part B. OSWALDO notified Dr. Wilson of this information. KEITH Araiza Original Note: Social Work Received voicemail from ED Ermelinda CHACON. Ermelinda reports received call from pt's insurance department. Insurance sending pt case to return to SNF for skilled care to medical review. A peer to peer option was present for to call and provide evidence supporting the skilled need. OSWALDO notified pt's of peer to peer pc offer. Provided information to KEITH Salazar
[2022-03-14 11:25] LABS: Bedside Glucose 296 mg/dL (74-106)
[2022-03-14 11:51] VITALS: O2SAT 99
--- NOTE | 2022-03-14 12:56 | PCM.TXEXTCAR ---
Diet Diet Order/Speech Therapy: 03/10/22 17:52 ADA [Diet: Cardiac: Calorie-Controlled] Is pt able to select menu?: No Diet Comments: advance as eliza How many daily calories?: 1800 calorie Routine Orders/Code Status Suppository Frequency: Daily PRN O2 Frequency: PRN Keep PO Greater than or Equal to (%): 88 Routine Lab Work: CBC (In 1 week) and BMP (In 1 week) Code Status: Full Code Wound(s) rt buttock: Wound Type: Abrasion LEFT HIP: Wound Type: Surgical Incision Therapies Weight Bearing: Weight bearing as tolerated Physical Therapy: Eval and Treat Occupational Therapy: Eval and Treat Problem/Diagnosis (1) Closed left hip fracture: Status: Acute Code(s): S72.002A - Fracture of unspecified part of neck of left femur, initial encounter for closed fracture Allergies/Procedures Done in Hospital Allergies Ecuncdh-Fbh-Mbe Reductase Inhibitor Allergy (Verified 03/10/22 01:31) Swelling of joints Procedures: - (ORIF left femoral neck) Type of Care/Length of Stay Estimated LOS: Convalescent Care Less Than 30 days Type of Care Needed: Skilled Rehab Potential: Good Prognosis: Good Additional Orders/Day of Discharge Day of Discharge: 03/13/22 Dietary and Speech Recommendations Dietitian Recommendations/Changes: recommend advance diet as tolerated to carbohydrate controlled, cardiac diet; will monitor need for ONS after PO diet is advanced. Discharge Plan Admission Admit Date/Time: 03/10/22 03:14 Attending Provider: Kimi Wilson Primary Care Provider: Aysha Barron Consulting Providers: Raul Ellison ; Jocelin Rollins ; Gurwinder Bo ; Enrique Corrales Discharge Orders/Prescriptions Prescriptions: New acetaminophen [Tylenol] 325 mg Tablet 650 mg PO Q4H PRN PRN (Reason: Fever, pain 1-03/05) Qty: 0 0RF albuterol sulfate 2.5 mg /3 mL (0.083 %) Solution For Nebulization 2.5 mg inhalation Q2H PRN PRN (Reason: Dyspnea, wheezing) Qty: 0 0RF sennosides-docusate sodium [Stool Softener-Stimulant Laxat] 8.6-50 mg Tablet 2 tab PO BID Qty: 0 0RF famotidine 20 mg Tablet 20 mg PO BID Qty: 0 0RF budesonide 0.5 mg/2 mL Suspension For Nebulization 0.5 mg inhalation BID.RT Qty: 0 0RF alum-mag hydroxide-simeth [Mag-Al Plus Extra Strength] 400-400-40 mg/5 mL Suspension 30 ml PO Q6H PRN PRN (Reason: Gastric Burning) Qty: 0 0RF oxycodone 5 mg Tablet 5 mg PO Q4H PRN PRN (Reason: Pain Score 4-10) 3 Days Qty: 12 0RF insulin lispro [Humalog KwikPen Insulin] 100 unit/mL Insulin Pen See Protocol subcut ACHS Qty: 0 0RF Protocol: 4. Sliding Scale Insulin High-Med Dosing Condition: 150-199 mg/dl = 2 units Condition: 200-259 mg/dl = 4 units Condition: 260-324 mg/dl = 6 units Condition: 325-374 mg/dl = 8 units Condition: 375-409 mg/dl = 10 units Condition: 410-449 mg/dl = 11 units Condition: Greater than 449 call physician Protocol Text: - Use for Total Daily Dose of Insulin 56-80 units - Patient who are insulin resistant or septic HIGH MEDIUM DOSING ALGORITHM menthol-zinc oxide [Calmoseptine] 0.44-20.6 % Ointment 1 applic topical BID Qty: 0 0RF Protocol: *Topical Application Instructions APPLICATION INSTRUCTIONS: apply to coccyx Xarelto 10 mg Tablet 10 mg PO DINNER Qty: 35 0RF Continued losartan 50 MG tablet 50 mg PO DAILY folic acid 1 mg Tablet 1 mg PO DAILY furosemide [Lasix] 20 mg Tablet 20 mg PO DAILY insulin lispro [Humalog KwikPen Insulin] 100 unit/mL Insulin Pen 11 unit SUBCUT LUNCH insulin glargine [Lantus Solostar U-100 Insulin] 100 unit/mL (3 mL) Insulin Pen 34 unit SUBCUT DAILY bisacodyl [Dulcolax (bisacodyl)] 10 mg Suppository 10 mg ME DAILY PRN (Reason: Constipation) clotrimazole 2 % Cream 1 appful topical QHS Rx Instructions: apply to toes aspirin 81 mg Capsule 81 mg PO DAILY meclizine 12.5 mg Tablet 25 mg PO DAILY PRN (Reason: Nausea And Vomiting) insulin lispro [Humalog KwikPen Insulin] 100 unit/mL Insulin Pen 15 unit SUBCUT BID ezetimibe [Zetia] 10 mg Tablet 10 mg PO QHS melatonin 3 mg Capsule 3 mg PO QHS Discontinued glipizide 5 MG tablet 10 mg PO DAILY Label Comments: TAKE 1 TABLET BY MOUTH EVERY DAY insulin lispro [Humalog KwikPen Insulin] 100 unit/mL Insulin Pen 0 - 11 unit SUBCUT TIDCM acetaminophen 325 mg Tablet 650 mg PO Q4H PRN (Reason: pain or fever) magnesium hydroxide [Milk of Magnesia] 400 mg/5 mL Suspension 30 ml PO DAILY PRN (Reason: Constipation) Referrals / Follow Up: Aysha Barron MD [Primary Care Provider] - Within 1 Week Raul Ellison MD [Med Staff - Active Staff] - Within 2 Weeks Disposition Disposition (needs filled in before D/C Order can be placed): Nursing Home Facility
--- NOTE | 2022-03-14 12:58 | PCM.DC.SUM ---
Providers Date of Admission: 03/10/22 Date of Discharge: 03/14/22 Primary Care Physician: Dr. Aysha Barron MD Consultations 03/10/22 04:16 Consult: Orthopedics Routine Consulting Provider: Raul Ellison Reason for Consult: Fall, L hip fracture EMERGENT Consult: No MD Notified: Yes Date Notified: 03/10/22 Time Notified: 03:20 Method of Notification: ED Physician Initiated Reason For Visit: FALL, L HIP FRACTURE Diagnosis Discharge Diagnosis (1) Closed left hip fracture: Status: Acute Code(s): S72.002A - Fracture of unspecified part of neck of left femur, initial encounter for closed fracture Medications at Discharge Home Medications losartan 50 mg tablet 50 mg PO DAILY bp 07/27/19 folic acid 1 mg tablet 1 mg PO DAILY vitamin deficiency 12/20/20 furosemide 20 mg tablet (Lasix) 20 mg PO DAILY water pill 12/20/20 insulin glargine 100 unit/mL (3 mL) subcutaneous pen (Lantus Solostar U-100 Insulin) 34 unit subcut DAILY diabetes 12/20/20 insulin lispro 100 unit/mL subcutaneous pen (Humalog KwikPen (U-100) Insulin) 11 unit subcut LUNCH diabetes 12/20/20 aspirin 81 mg capsule 81 mg PO DAILY 03/10/22 bisacodyl 10 mg rectal suppository (Dulcolax (bisacodyl)) 10 mg WI DAILY PRN Constipation 03/10/22 clotrimazole 2 % vaginal cream 1 appful topical QHS toe fungus 03/10/22 ezetimibe 10 mg tablet (Zetia) 10 mg PO QHS diabetes 03/10/22 insulin lispro 100 unit/mL subcutaneous pen (Humalog KwikPen (U-100) Insulin) 15 unit subcut BID diabetes 03/10/22 meclizine 12.5 mg tablet 25 mg PO DAILY PRN Nausea And Vomiting 03/10/22 melatonin 3 mg capsule 3 mg PO QHS insomnia 03/10/22 acetaminophen 325 mg tablet (Tylenol) 650 mg PO Q4H PRN PRN Fever, pain 1-03/05 #0 tabs 03/13/22 albuterol sulfate 2.5 mg/3 mL (0.083 %) solution for nebulization 2.5 mg (3 mL) inhalation Q2H PRN PRN Dyspnea, wheezing #0 mL 03/13/22 aluminum-mag hydroxide-simethicone 400 mg-400 mg-40 mg/5 mL oral susp (Mag-Al Plus Extra Strength) 30 ml PO Q6H PRN PRN Gastric Burning #0 mL 03/13/22 budesonide 0.5 mg/2 mL suspension for nebulization 0.5 mg (2 mL) inhalation BID.RT #0 mL 03/13/22 famotidine 20 mg tablet 20 mg PO BID #0 tabs 03/13/22 insulin lispro 100 unit/mL subcutaneous pen (Humalog KwikPen (U-100) Insulin) See Protocol subcut ACHS #0 mL 03/13/22 menthol 0.44 %-zinc oxide 20.6 % topical ointment (Calmoseptine) 1 applic topical BID #0 grams 03/13/22 oxycodone 5 mg tablet 5 mg PO Q4H PRN PRN Pain Score 4-10 3 days #12 tabs 03/13/22 rivaroxaban 10 mg tablet (Xarelto) 10 mg PO DINNER #35 tabs 03/13/22 sennosides 8.6 mg-docusate sodium 50 mg tablet (Stool Softener-Stimulant Laxative) 2 tab PO BID #0 tabs 03/13/22 Hospital Course Operations - (Left hip ORIF) Procedures EKG and - (Chest x-ray) Summary of Care Provided Minutes Spent on Discharge: 38 Hospital Course: Mr. Howe is a 66-year-old white male who presented from [facility] after suffering a mechanical fall while walking back from the bathroom which resulted in immediate left hip pain. He reported he fell onto his left hip and immediately experienced 10 out of 10 sharp debilitating pain. In the emergency department shortened and externally rotated. Work-up in the ED included T 99.1, HR 85, BP 110/55, RR 15, 98% on RA, CBC w/ WBC 14.1, Hgb 16.1, Plts 191 with L shift, CMP unremarkable aside glucose 140, EtOH<3, UDS negative, CT brain with no acute intracranial findings, CT cervical spine with no evidence of acute or healing fracture or malalignment, plain film L hip with evidence of a left femoral neck fracture noted to be minimally displaced with normal alignment of the left hip as well as mild to moderate degenerative changes at the pubic symphysis, degenerative changes of the lumbar spine, multiple phleboliths in the pelvis, CXR with no acute cardiopulmonary findings, EKG with SR with 1AVB without acute evidence of ischemia. Case was discussed with Dr. Ellison who is on-call for orthopedics and he requested a CT of the head be performed. This confirmed a mildly acute displaced left hip fracture involving the femoral neck. He resides at an [facility] due to difficulty in caring for himself related to his history of alcohol abuse. He was taken to the OR on 03/10/2022 at which time ORIF of the left hip femoral neck was performed. Patient remained weightbearing as tolerated postoperatively and DVT prophylaxis was initiated with Xarelto. It was recommended that he follow-up with Dr. Ellison's office in 2 weeks for follow-up x-rays and surgical follow-up. He was evaluated by physical and Occupational Therapy during his hospital course and ongoing therapy at a skilled facility was recommended. It was felt initially he needed to go to a skilled facility however insurance denied that request we did discuss with [facility] and that he would be picked up for physical and Occupational Therapy under the care of part B if discharged to [facility]. He was discharged to [facility] in stable condition on 03/14/2022. He is to follow-up with orthopedic surgery in 2 weeks and I would recommend follow-up CBC and BMP within the next week. Discharge diagnoses: Left femoral neck fracture status post ORIF Debility CAD status post CABG Hypertension Hyperlipidemia DM-2 CKD stage II History of alcohol abuse History of tobacco abuse Obesity Physical Exam Const alert, oriented x3, no apparent distress and well nourished Constitutional Narrative: Obese, upper middle-aged white male sitting up in bed watching television eating breakfast, appears comfortable and nontoxic, patient appears older than stated age General Appearance: cooperative, comfortable, well kempt and well developed Orientation / Consciousness: awake Exam Limitations: no limitations Nutritional Appearance: obese HEENT normocephalic, head/scalp atraumatic and moist oral mucous membranes HEENT Narrative: Mild hearing loss, Mallampati 3, no thrush dentition is poor Eyes PERRL, EOMs intact bilaterally and conjunctivae normal Eyes Narrative: No scleral icterus Neck no lymphadenopathy and supple Neck Narrative: Trachea midline, no thyroid enlargement Resp normal respiratory effort, no retractions, no use of accessory muscles and clear to auscultation bilaterally Auscultation: Negative for crackles, rales, rhonchi or wheezes Cardio regular rate, regular rhythm, S1 normal heart sound, S2 normal heart sound, no murmurs, no rub, no gallops and no clicks GI normal to inspection, nondistended, normoactive bowel sounds, soft to palpation and non-tender Extremity no clubbing, cyanosis or edema Extremity Narrative: Left postoperative dressing slightly bloodstained but no obvious current blood loss, tenderness at the site with no significant ecchymosis or swelling Skin no rashes or lesions noted, skin turgor normal and no jaundice Skin Narrative: See postoperative incision above Neuro oriented x3, CN's II-XII intact bilaterally and no focal motor deficits Neuro Narrative: Decreased mobility left lower extremity secondary to pain at hip joint but moves all other extremities symmetrically, generalized weakness with increased weakness at left lower extremity secondary to pain Speech: speech normal Psych Psych Narrative: Affect is slightly flat but appropriately interactive Weight / BMI Weight Weight: 113.443 kg Body Mass Index (BMI) 32.9 ABG / Lab / Microbiology Data Result Diagrams: 03/14/22 06:05 03/14/22 06:05 Laboratory: Laboratory Results - last 24 hr 03/13/22 15:52: POC Glucose 248 H 03/13/22 21:05: POC Glucose 298 H 03/14/22 04:42: POC Glucose 157 H 03/14/22 06:05: WBC 12.9 H, RBC 4.34 L, Hgb 13.2, Hct 38.9 L, MCV 89.6, MCH 30.4, MCHC 33.9, RDW Std Deviation 44.0 H, RDW Coeff of Fred 13.3, Plt Count 187, MPV 11.3, Immature Gran % (Auto) 0.600, Neut % (Auto) 71.2 H, Lymph % (Auto) 14.9 L, Ross % (Auto) 8.6, Eos % (Auto) 4.2, Baso % (Auto) 0.5, Absolute Neuts (auto) 9.2 H, Absolute Lymphs (auto) 1.92, Nucleated RBC % 0 03/14/22 06:05: Sodium 135 L, Potassium 3.9, Chloride 102, Carbon Dioxide 25.0, Anion Gap 8, BUN 17, Creatinine 0.90, Estim Creat Clear Calc 83.67, Est GFR (MDRD) Af Amer 108, Est GFR (MDRD) Non-Af 90, BUN/Creatinine Ratio 19.0, Glucose 180 H, Calcium 8.2 L 03/14/22 10:58: POC Glucose 296 H D/C Instructions Discharge Diet: 1800 Calorie Control Diet Call your doctor if you observe: Fever of 101 or Higher, Shortness of breath, Fainting spells and Chest pain Meaningful Use Info Meaningful Use Diagnoses (Choose all that apply): None applicable Discharge Plan Admission Admit Date/Time: 03/10/22 03:14 Primary Reason for Your Visit: Mechanical fall/left hip pain Attending Provider: Kimi Wilson Primary Care Provider: Aysha Barron Consulting Providers: Raul Ellison ; Jocelin Rollins ; Gurwinder Bo ; Enrique Corrales Discharge Orders/Prescriptions Prescriptions: New acetaminophen [Tylenol] 325 mg Tablet 650 mg PO Q4H PRN PRN (Reason: Fever, pain 1-10/10) Qty: 0 0RF albuterol sulfate 2.5 mg /3 mL (0.083 %) Solution For Nebulization 2.5 mg inhalation Q2H PRN PRN (Reason: Dyspnea, wheezing) Qty: 0 0RF sennosides-docusate sodium [Stool Softener-Stimulant Laxat] 8.6-50 mg Tablet 2 tab PO BID Qty: 0 0RF famotidine 20 mg Tablet 20 mg PO BID Qty: 0 0RF budesonide 0.5 mg/2 mL Suspension For Nebulization 0.5 mg inhalation BID.RT Qty: 0 0RF alum-mag hydroxide-simeth [Mag-Al Plus Extra Strength] 400-400-40 mg/5 mL Suspension 30 ml PO Q6H PRN PRN (Reason: Gastric Burning) Qty: 0 0RF oxycodone 5 mg Tablet 5 mg PO Q4H PRN PRN (Reason: Pain Score 4-10) 3 Days Qty: 12 0RF insulin lispro [Humalog KwikPen Insulin] 100 unit/mL Insulin Pen See Protocol subcut ACHS Qty: 0 0RF Protocol: 4. Sliding Scale Insulin High-Med Dosing Condition: 150-199 mg/dl = 2 units Condition: 200-259 mg/dl = 4 units Condition: 260-324 mg/dl = 6 units Condition: 325-374 mg/dl = 8 units Condition: 375-409 mg/dl = 10 units Condition: 410-449 mg/dl = 11 units Condition: Greater than 449 call physician Protocol Text: - Use for Total Daily Dose of Insulin 56-80 units - Patient who are insulin resistant or septic HIGH MEDIUM DOSING ALGORITHM menthol-zinc oxide [Calmoseptine] 0.44-20.6 % Ointment 1 applic topical BID Qty: 0 0RF Protocol: *Topical Application Instructions APPLICATION INSTRUCTIONS: apply to coccyx Xarelto 10 mg Tablet 10 mg PO DINNER Qty: 35 0RF Continued losartan 50 MG tablet 50 mg PO DAILY folic acid 1 mg Tablet 1 mg PO DAILY furosemide [Lasix] 20 mg Tablet 20 mg PO DAILY insulin lispro [Humalog KwikPen Insulin] 100 unit/mL Insulin Pen 11 unit SUBCUT LUNCH insulin glargine [Lantus Solostar U-100 Insulin] 100 unit/mL (3 mL) Insulin Pen 34 unit SUBCUT DAILY bisacodyl [Dulcolax (bisacodyl)] 10 mg Suppository 10 mg WI DAILY PRN (Reason: Constipation) clotrimazole 2 % Cream 1 appful topical QHS Rx Instructions: apply to toes aspirin 81 mg Capsule 81 mg PO DAILY meclizine 12.5 mg Tablet 25 mg PO DAILY PRN (Reason: Nausea And Vomiting) insulin lispro [Humalog KwikPen Insulin] 100 unit/mL Insulin Pen 15 unit SUBCUT BID ezetimibe [Zetia] 10 mg Tablet 10 mg PO QHS melatonin 3 mg Capsule 3 mg PO QHS Discontinued glipizide 5 MG tablet 10 mg PO DAILY Label Comments: TAKE 1 TABLET BY MOUTH EVERY DAY insulin lispro [Humalog KwikPen Insulin] 100 unit/mL Insulin Pen 0 - 11 unit SUBCUT TIDCM acetaminophen 325 mg Tablet 650 mg PO Q4H PRN (Reason: pain or fever) magnesium hydroxide [Milk of Magnesia] 400 mg/5 mL Suspension 30 ml PO DAILY PRN (Reason: Constipation) Referrals / Follow Up: Aysha Barron MD [Primary Care Provider] - Within 1 Week Raul Ellison MD [Med Staff - Active Staff] - Within 2 Weeks Disposition Disposition (needs filled in before D/C Order can be placed): Group Home Facility Charges/Coding Visit Charges Inpatient E&M: 61599 SNF Disch >30 Min
[2022-03-14 14:11] VITALS: BP 124/69; PULSE 86; RESP 16; TEMP 36.8; O2SAT 93
--- NOTE | 2022-03-14 14:44 | PHA.DC.MR ---
Pharmacy Service has performed discharge medication reconciliation for this patient. The patient's discharge medication list was reviewed for discrepancies and discrepancies were resolved. Home Medications losartan 50 mg tablet 50 mg PO DAILY bp 07/27/19 folic acid 1 mg tablet 1 mg PO DAILY vitamin deficiency 12/20/20 furosemide 20 mg tablet (Lasix) 20 mg PO DAILY water pill 12/20/20 insulin glargine 100 unit/mL (3 mL) subcutaneous pen (Lantus Solostar U-100 Insulin) 34 unit subcut DAILY diabetes 12/20/20 insulin lispro 100 unit/mL subcutaneous pen (Humalog KwikPen (U-100) Insulin) 11 unit subcut LUNCH diabetes 12/20/20 aspirin 81 mg capsule 81 mg PO DAILY 03/10/22 bisacodyl 10 mg rectal suppository (Dulcolax (bisacodyl)) 10 mg GA DAILY PRN Constipation 03/10/22 clotrimazole 2 % vaginal cream 1 appful topical QHS toe fungus 03/10/22 ezetimibe 10 mg tablet (Zetia) 10 mg PO QHS diabetes 03/10/22 insulin lispro 100 unit/mL subcutaneous pen (Humalog KwikPen (U-100) Insulin) 15 unit subcut BID diabetes 03/10/22 meclizine 12.5 mg tablet 25 mg PO DAILY PRN Nausea And Vomiting 03/10/22 melatonin 3 mg capsule 3 mg PO QHS insomnia 03/10/22 acetaminophen 325 mg tablet (Tylenol) 650 mg PO Q4H PRN PRN Fever, pain 1-03/05 #0 tabs 03/13/22 albuterol sulfate 2.5 mg/3 mL (0.083 %) solution for nebulization 2.5 mg (3 mL) inhalation Q2H PRN PRN Dyspnea, wheezing #0 mL 03/13/22 aluminum-mag hydroxide-simethicone 400 mg-400 mg-40 mg/5 mL oral susp (Mag-Al Plus Extra Strength) 30 ml PO Q6H PRN PRN Gastric Burning #0 mL 03/13/22 budesonide 0.5 mg/2 mL suspension for nebulization 0.5 mg (2 mL) inhalation BID.RT #0 mL 03/13/22 famotidine 20 mg tablet 20 mg PO BID #0 tabs 03/13/22 insulin lispro 100 unit/mL subcutaneous pen (Humalog KwikPen (U-100) Insulin) See Protocol subcut ACHS #0 mL 03/13/22 menthol 0.44 %-zinc oxide 20.6 % topical ointment (Calmoseptine) 1 applic topical BID #0 grams 03/13/22 oxycodone 5 mg tablet 5 mg PO Q4H PRN PRN Pain Score 4-10 3 days #12 tabs 03/13/22 rivaroxaban 10 mg tablet (Xarelto) 10 mg PO DINNER #35 tabs 03/13/22 sennosides 8.6 mg-docusate sodium 50 mg tablet (Stool Softener-Stimulant Laxative) 2 tab PO BID #0 tabs 03/13/22
--- NOTE | 2022-03-14 16:07 | CASEMGMT ---
Social Work OSWALDO [facility]. OSWALDO called [facility] to inform pt discharging today. Spoke to Warner. Warner confirmed understanding. OSWALDO faxed discharge orders via [facility] to [facility]. Placed copies of orders on chart and originals in envelope to go with pt. OSWALDO called pt's son, Jacky, that pt discharging back to SNF Jacky voiced understanding. Pt covid test pending. Pt nurse updated of plan for pt to return, made aware once pt covid returns negative pt can discharge to [facility]. Dispo: [facility], intermediate level of care KEITH Araiza
[2022-03-14] MEDS: Rivaroxaban 10 MG Tablet PO (16:23)
[2022-03-14 16:46] LABS: Bedside Glucose 271 mg/dL (74-106)
--- NOTE | 2022-03-14 19:15 | NURSING ---
Patient IV taken out by this nurse. Catheter tip intact. patient tolerated well. Covered with gauze and tape.
== END 2022-03-14 19:50 | DRG 482 ==
LOC: ED 03:12 → MS3 03:36
PROVIDERS: Anesthesiology; Internal Medicine; Orthopaedic Surgery Sports Medicine; Admitting Provider Family Medicine; Emergency Provider Student in an Organized Health Care Education/Training Program; PCP Internal Medicine; Visit Provider Internal Medicine
PROC: 0QS704Z Reposition Left Upper Femur with Internal Fixation Device, Open Approach (ICD-10-PCS; CPT 27245; principal; 2022-03-10 10:30)
DX: M80.052A Age-related osteoporosis with current pathological fracture, left femur, initial encounter for fracture (principal); E11.22 Type 2 diabetes mellitus with diabetic chronic kidney disease; Z79.4 Long term (current) use of insulin; I87.8 Other specified disorders of veins; N18.2 Chronic kidney disease, stage 2 (mild); I12.9 Hypertensive chronic kidney disease with stage 1 through stage 4 chronic kidney disease, or unspecified chronic kidney disease; M47.816 Spondylosis without myelopathy or radiculopathy, lumbar region; I44.0 Atrioventricular block, first degree; I25.10 Atherosclerotic heart disease of native coronary artery without angina pectoris; E78.5 Hyperlipidemia, unspecified; M16.12 Unilateral primary osteoarthritis, left hip; W19.XXXA Unspecified fall, initial encounter; Z87.891 Personal history of nicotine dependence; R31.9 Hematuria, unspecified; Z79.82 Long term (current) use of aspirin; E66.9 Obesity, unspecified; Z95.1 Presence of aortocoronary bypass graft
CPT/HCPCS: 36415; 51702; 70450; 71045; 72125; 73502; 73700; 76000; 80048; 80053; 80307; 81001; 82077; 82803; 82962; 83036; 83735; 83880; 84145; 84484; 85025; 85027; 85610; 86850; 86900; 86901; 87426; 93005; 94640; 94762; 97110; 97162; 97166; 97530; 97535; 97802; 99251; 99285; C1713; J7030; A4216; G0463; J2405

== ENCOUNTER → 2023-09-16 | Outpatient (CLI) | payer MEDICARE, MEDICAID, SELFPAY ==
--- NOTE | 2023-09-16 08:49 | ART_ITS ---
Reason For Study: Ulcer Procedure A bilateral lower extremity continuous wave Doppler with analog waveform analysis,segmental pressures,and ankle brachial indexes without exercise. Left Segmental Pressures Left brachial= 104mmHg. Left posterior tibial artery = >254mmHg. Left dorsalis pedis artery = 172mmHg. Left digit = 77 mmHg. Right Segmental Pressures Right brachial= 105mmHg. Right posterior tibial artery = >254mmHg. Right dorsalis pedis artery = >254mmHg. Indices The right ankle brachial index by the posterior tibial artery is NC. The right ankle brachial index by the dorsalis pedis is NC. The left ankle brachial index by the posterior tibial artery is NC. The left ankle brachial index by the dorsalis pedis is 1.64. The left digital-brachial index is 0.73. VL/Lower Ext Art Exam w/o Exercis Interpretation Summary Right CHRISTINE not able to be obtained due to non-compressible vessels. Doppler/PVR waveforms of the right ankle normal at rest. Left CHRISTINE 1.64,artificially elevated. Doppler/PVR waveforms of the left ankle no rmal at rest. TBI diminished, pedal/digit disease vs spasm Ordering Physician: Concha Veras Referring Physician: Aysha Barron Performed By: Anita Perez RDCS/RVT
== END | disposition home or self-care (01) ==
LOC: CVS 08:46
PROVIDERS: PCP Internal Medicine; Referring Provider Physician Assistant; Visit Provider Physician Assistant
DX: I73.9 Peripheral vascular disease, unspecified (principal)
CPT/HCPCS: 93923

== ENCOUNTER → 2023-11-07 | Outpatient (CLI) | payer MEDICARE, MEDICAID, SELFPAY ==
--- NOTE | 2023-11-07 07:59 | CT_ITS ---
STUDY: CTA OF THE ABDOMINAL AORTA AND BILATERAL LOWER EXTREMITIES REASON FOR EXAM: Male, 68 years old. R ankle ulceration, RLE atherosclerosis. RADIATION DOSAGE (If Supplied By Facility): CTDIvol = ( 8.52 ) mGy, DLP = ( 1726.76 ) mGycm TECHNIQUE: Axial CT angiography multi-detector data acquisition was obtained from the dome of the liver to the level of the ankle following intravenous administration of 100 ML ISOVUE 370. Axial images and MIP images were reconstructed from the axial data set. Post-processing of the angiographic images was performed, with multiplanar reformation and 3D reconstruction. Individualized dose optimization techniques were used for this CT. TECHNICAL QUALITY: Good COMPARISON: None. Descriptors of Narrowing: None (0%) Mild (< 50%) Moderate (50-70%) Severe (70-90%) Subtotal/Total Occlusion (90-100%) Non-Evaluable (technically non-diagnostic FINDINGS: Coronary artery calcification. Mild increased linear markings at the left lung base suggestive of either linear atelectasis and/or scarring. Fatty infiltration of the liver. 2.8 cm cyst in the mid lateral portion of the right kidney. Abdominal aorta: Atherosclerotic calcific plaques of the abdominal aorta. Minimal degree of mural thrombus. Celiac and superior mesenteric arteries: Minimal atherosclerotic plaque formation at the origin of the superior mesenteric and celiac arteries. Inferior mesenteric artery: No demonstrated narrowing. Right renal artery(arteries): Minimal plaque formation. Left renal artery(arteries): Minimal plaque formation. Right common iliac artery: Calcific plaques in the proximal portion of the common iliac artery. Right external iliac artery: Mild calcific plaques. Right internal iliac artery: No demonstrated narrowing. Left common iliac artery: Calcific plaques. Left external iliac artery: Minimal calcific plaques. Left internal iliac artery: No demonstrated narrowing. RIGHT LOWER EXTREMITY Right common femoral artery: No demonstrated narrowing. Right profundus femoris: No demonstrated narrowing. Right superficial femoral: Nonstenotic calcific plaques in the distal portion. Right popliteal artery: No demonstrated narrowing. Right tibioperoneal trunk: Calcific plaques. Right anterior tibial artery: No demonstrated narrowing. Right posterior tibial artery: No demonstrated narrowing. Right peroneal artery: Calcific plaques in its proximal portion. LEFT LOWER EXTREMITY Left common femoral artery: No demonstrated narrowing. Left profundus femoris: No demonstrated narrowing. Left superficial femoral: No demonstrated narrowing. Left popliteal artery: No demonstrated narrowing. Left tibioperoneal trunk: Nonstenotic calcific plaques. Left anterior tibial artery: No demonstrated narrowing. Left posterior tibial artery: Calcific plaques in the proximal portion. Left peroneal artery: No demonstrated narrowing. CT/CTA Abd w/Runoff W/WO Contrast IMPRESSION: Three-vessel runoff in both lower extremities. Calcific plaque formation in the right and left common iliac arteries and right and left common femoral arteries as well as the right superficial femoral artery. Electronically Signed: Kenneth Givens MD at 15:06 EDT ,
[2023-11-07 08:44] LABS: CREATININE FINGERSTICK < 1.0 mg/dL (0.70-1.30); EGFR FINGERSTICK > 60.0000 mL/min (>60)
== END | disposition home or self-care (01) ==
LOC: CT 07:56
PROVIDERS: PCP Internal Medicine; Referring Provider Physician Assistant; Visit Provider Physician Assistant
DX: I70.239 Atherosclerosis of native arteries of right leg with ulceration of unspecified site (principal); I74.09 Other arterial embolism and thrombosis of abdominal aorta; I25.10 Atherosclerotic heart disease of native coronary artery without angina pectoris; N28.1 Cyst of kidney, acquired
CPT/HCPCS: 75635; Q9967; A4216

== ENCOUNTER → 2024-09-28 | Outpatient (CLI) | payer MEDICARE, MEDICAID, SELFPAY ==
--- NOTE | 2024-09-28 13:51 | ART_ITS ---
Reason For Study Reason For Study: Ulcer Procedure A bilateral lower extremity continuous wave Doppler with analog waveform analysis,segmental pressures,and ankle brachial indexes without exercise. Left Segmental Pressures Left brachial= 112mmHg. Left posterior tibial artery = >254mmHg. Left dorsalis pedis artery = >254mmHg. Left digit = 126 mmHg. The left dorsalis pedis waveforms are triphasic. The left posterior tibial artery waveforms are triphasic. Right Segmental Pressures Right brachial= 104mmHg. Right posterior tibial artery = >254mmHg. Right dorsalis pedis artery = >254mmHg. Right digit = 143 mmHg. The right dorsalis pedis waveforms are triphasic. The right posterior tibial artery waveforms are triphasic. Indices The right ankle brachial index by the dorsalis pedis is NC. The right ankle brachial index by the posterior tibial artery is NC. The right digital-brachial index is 1.28. The left ankle brachial index by the dorsalis pedis is NC. The left ankle brachial index by the posterior tibial artery is NC. The left digital-brachial index is 1.13. VL/Lower Ext Art Exam w/o Exercis Interpretation Summary Right CHRISTINE not able to be obtained due to non compressible vessels. TBI and Dopp ler/PVR waveforms of the right leg normal at rest. Left CHRISTINE not able to be obtained due to non compressible vessels. TBI and Doppl er/PVR waveforms of the left leg normal at rest. Ordering Physician: Concha Veras Referring Physician: Aysha Barron Performed By: Yina Scherer RVT
== END | disposition home or self-care (01) ==
LOC: CVS 13:48
PROVIDERS: PCP Internal Medicine; Referring Provider Physician Assistant; Visit Provider Physician Assistant
DX: I73.9 Peripheral vascular disease, unspecified (principal)
CPT/HCPCS: 93923

== ENCOUNTER 2024-11-12 09:30 | Outpatient (RCR) | payer MEDICARE, MEDICAID, SELFPAY ==
[2024-10-29 10:26] VITALS: BP 131/63; PULSE 79; RESP 18; TEMP 36.1
[2024-11-12 10:16] VITALS: BP 104/67; PULSE 92; RESP 20; TEMP 36.8
== END 2024-11-23 23:59 | disposition home or self-care (01) ==
LOC: WC 09:30
PROVIDERS: PCP Internal Medicine; Referring Provider Physician Assistant; Visit Provider Internal Medicine
DX: E11.622 Type 2 diabetes mellitus with other skin ulcer (principal); L97.312 Non-pressure chronic ulcer of right ankle with fat layer exposed; L97.322 Non-pressure chronic ulcer of left ankle with fat layer exposed; F03.90 Unspecified dementia, unspecified severity, without behavioral disturbance, psychotic disturbance, mood disturbance, and anxiety; E11.22 Type 2 diabetes mellitus with diabetic chronic kidney disease; Z79.4 Long term (current) use of insulin; I12.9 Hypertensive chronic kidney disease with stage 1 through stage 4 chronic kidney disease, or unspecified chronic kidney disease; E78.5 Hyperlipidemia, unspecified; I25.10 Atherosclerotic heart disease of native coronary artery without angina pectoris; N18.2 Chronic kidney disease, stage 2 (mild); R53.81 Other malaise; Z79.02 Long term (current) use of antithrombotics/antiplatelets; Z79.82 Long term (current) use of aspirin; Z79.84 Long term (current) use of oral hypoglycemic drugs; Z79.85 Long-term (current) use of injectable non-insulin antidiabetic drugs; Z87.891 Personal history of nicotine dependence
CPT/HCPCS: 11042; 87070; 87075; 87077; 87205; 99213; G0463

== ENCOUNTER → 2024-11-20 | Outpatient (CLI) | payer MEDICARE, MEDICAID, SELFPAY ==
--- NOTE | 2024-11-20 10:51 | RAD_ITS ---
EXAM: XR Right Ankle Complete, 3 or More Views CLINICAL INDICATION: ANKLE ULCER TECHNIQUE: Frontal, lateral and oblique views of the right ankle. COMPARISON: No relevant prior studies available. FINDINGS: BONES/JOINTS: No obvious radiographic evidence of osteomyelitis. However, if clinical suspicion remains high, further evaluation with 3 phase bone scan or MRI is recommended. No acute fracture. No dislocation. No erosive changes to the osseous structures. SOFT TISSUES: Soft tissue swelling. RAD/Ankle 2 Views IMPRESSION: No obvious radiographic evidence of osteomyelitis. However, if clinical suspici on remains high, further evaluation with 3 phase bone scan or MRI is recommended. Reading Location: [id number]
--- NOTE | 2024-11-20 11:00 | RAD_ITS ---
EXAM: XR Left Ankle Complete, 3 or More Views CLINICAL INDICATION: ANKLE ULCER TECHNIQUE: Frontal, lateral and oblique views of the left ankle. COMPARISON: No relevant prior studies available. FINDINGS: BONES/JOINTS: No obvious radiographic evidence of osteomyelitis. However, if clinical suspicion remains high, further evaluation with 3 phase bone scan or MRI is recommended. No acute fracture. No dislocation. No erosive changes to the osseous structures. SOFT TISSUES: Soft tissue swelling. RAD/Ankle 2 Views IMPRESSION: No obvious radiographic evidence of osteomyelitis. However, if clinical suspici on remains high, further evaluation with 3 phase bone scan or MRI is recommended. Reading Location: [id number]
== END | disposition home or self-care (01) ==
PROVIDERS: PCP Internal Medicine; Referring Provider Internal Medicine; Visit Provider Internal Medicine
DX: L97.319 Non-pressure chronic ulcer of right ankle with unspecified severity (principal); L97.329 Non-pressure chronic ulcer of left ankle with unspecified severity
CPT/HCPCS: 73600

== ENCOUNTER → 2024-12-08 | Outpatient (CLI) | payer MEDICARE, MEDICAID, SELFPAY ==
--- NOTE | 2024-12-08 09:58 | MRI_ITS ---
PROCEDURE: LOWER EXT JOINT ONLY (ROUTINE) 12/08/2024 REASON FOR EXAM: SOFT TISSUES INFECTION RULE OUT/OSTEOMYLITISIS TECHNIQUE: LOWER EXT JOINT ONLY (ROUTINE) Multiplanar and multisequence images were obtained without IV contrast administration. COMPARISON: COMPARISON : 11/20/2024 FINDINGS: Lateral ankle skin thickening and skin defect/ulcer with subjacent subcutaneous edema likely related to cellulitis. No discrete drainable fluid collection within the limits of a noncontrast exam. Mild bone marrow edema/T1 marrow replacement along the peripheral aspect of the lateral malleolus which also demonstrates cortical erosion abutting the soft tissue infection compatible width acute osteomyelitis. No other significant bone marrow edema or marrow replacement. Achilles tendon is intact. Flexor tendons are intact. Moderate peroneus longus tendinopathy. Small split tear of the retromalleolar/inframalleolar peroneus brevis tendon. Mild peroneal tenosynovitis. Extensor tendons are intact. Syndesmotic ligaments are intact. Anterior talofibular, calcaneofibular and posterior talofibular ligaments are intact. Deltoid ligament complex is within normal limits. No significant plantar fasciitis. Negative for acute fracture. Alignment is maintained. Small tibiotalar and subtalar joint effusions. No high-grade chondral defects. Marked diffuse subcutaneous edema throughout the ankle. Edema throughout the plantar foot musculature potentially related to denervation. MRI/Lower Ext Joint Only (Routine) IMPRESSION: 1. Mild acute osteomyelitis along the lateral aspect of the lateral malleolus a s above. 2. Lateral ankle ulcer/cellulitis without discrete abscess within limits of a n oncontrast exam. 3. Peroneus longus tendinopathy. Small split tear of the peroneus brevis. 4. Possible denervation edema of the plantar foot musculature. Reading Location: [facility]
== END | disposition home or self-care (01) ==
LOC: OPMRI 09:52
PROVIDERS: PCP Internal Medicine; Referring Provider Internal Medicine; Visit Provider Internal Medicine
DX: L97.329 Non-pressure chronic ulcer of left ankle with unspecified severity (principal); M79.89 Other specified soft tissue disorders
CPT/HCPCS: 73721

== ENCOUNTER 2024-12-24 09:30 | Outpatient (RCR) | payer MEDICARE, MEDICAID, SELFPAY ==
[2024-11-26 09:44] VITALS: BP 138/74; PULSE 78; RESP 18; TEMP 36.6
--- NOTE | 2024-11-26 13:22 | PCM.WC.PN ---
History of Present Illness Date of Service: 11/26/24 Chief Complaint: Bilateral Foot Ulcers. History of Wound: Mr. Howe is a 69 yo referred to the wound center by his vascular surgery PA due to non healing bilateral ankle/foot ulcer. He is a poor historian due to memory impairment/dementia. Currently resides in a nursing facility. Per vascular surgery documentation, right lower extremity ulcer is chronic and left is more recent but has been present for months. Had imaging done including a CTA with no significant focal stenosis and three-vessel runoff. Also recently had repeat lower extremity arterial studies with no significant concerns noted. No indication for vascular intervention per documentation. History of diabetes mellitus type 2, no recent labs Progress of Wound: No acute concerns reported at this time. Santyl has been applied to both areas. Cultures from last visit reviewed. Objective Data Objective Data Vital Signs: Vital Signs Temp Pulse Resp BP 98 F 78 18 138/74 H 11/26/24 09:44 11/26/24 09:44 11/26/24 09:44 11/26/24 09:44 Charges/Coding Procedures Integumentary 111xxx-113xx: 29454 Marilia subq tissue 20 sq cm/< Physical Exam Const alert and no apparent distress General Appearance: cooperative and comfortable HEENT normocephalic and head/scalp atraumatic Eyes EOMs intact bilaterally Neck full ROM General: normal visual inspection Resp normal respiratory effort Effort and Inspection: able to speak in complete sentences Skin General Skin Exam: petechiae Wounds: wounds noted size Size: See clinical note, bed beefy red, margins poorly approximated, no odor and surrounding erythema Neuro CN's II-XII intact bilaterally and moves all extremities Psych cooperative, affect normal and speech normal Debridement Note Debridement Note Wound debrided: Left lateral ankle/malleoli Type of Debridement: Excisional debridement Anesthesia Used: 5% Lidocaine Gel Depth: Down to and including healthy tissue and in the subcutaneous layer Percentage of wound debrided: 100 Instrument Used: 5mm curette Tissue Removed: Devitalized tissue Severity: Fat Layer Exposed Amount of bleeding with debridement: Mild Bleeding Controlled with: Pressure Patient tolerated procedure: Patient tolerated procedure well Post-Debridement Measurements and Additional Note: Post-Debridement Measurements/Treatment JOIE - Nurse 1 - General Ulcer Assessment Start: 11/26/24 09:43 Freq: Status: Active Protocol: OFE Activity Type Activity Date Activity User E-sign Co-sign Detail Recorded Client Recorded Date Recorded By Document 11/26/24 09:44 RB [id number] 11/26/24 09:50 11/26/24 09:44 - Today's Visit Information Type of service Follow-up Visit (Physician/SURFACING MACHINE OPERATOR ) Arrival Mode Wheelchair Transfer Assistance Manual Transfer Assist (Other) two person Patient Identification Verified (Name & Yes ) Patient Requires Transmission-Based No Precautions Vital Signs Temperature (97.8 F-99.1 F) 98 F Temperature Source Temporal Pulse Rate (60-100) 78 Pulse Location Monitor Respiratory Rate (12-18) 18 Respiratory rate source Observation Blood Pressure (90/60-120/80) 138/74 H Blood Pressure Mean (mm Hg) 95 Source Monitor Position Semi-Fowlers Blood Pressure Location Left Arm History Since Last Visit- (Skip if this is Patient's initial visit) Have you changed medications since your No last visit? Any new allergies or adverse reactions No Had a fall/change in ADL's that may No increase risk of falls Signs or symptoms of abuse and/or No neglect since last visit Have you been in the hospital since your No last visit? Has dressing in place as prescribed Yes Has compression in place as prescribed N/A Has offloadiing in place as prescribed N/A Experienced any changes in pain level or No management Pain Scale: 0-10 Numeric Is Patient Pain Free? Yes - Nurse 1 - General Ulcer Measurement Start: 11/26/24 09:43 Freq: Status: Active Protocol: Activity Type Activity Date Activity User E-sign Co-sign Detail Recorded Client Recorded Date Recorded By Document 11/26/24 09:44 [id number] 11/26/24 09:50 RB 11/26/24 09:44 Wound Center Nurse 1 #2 Left lateral Ankle -Combined with other wound No -Current Size (cm) - Length 3 -Current Size (cm) - Width 2.2 -Current Size (cm) - Depth 0.2 -Total Square Cm 6.6 -Photo Taken Yes -Tunneling No -Undermining/Tunneling No -Circular Undermining No -Exudate Amt Medium -Exudate Type Serosanguineous -Wound Margin Distinct, Outline Attached -Granulation Amt Medium (34-66%) -Granulation Quality [place] -Slough/Fibrin Yes -Necrosis Amt Medium (34-66%) -Necrotic Tissue Type Adherent Slough -Structure Exposed N/A -Texture ([place]-wound Skin Appearance) Assessed, Scarring -Moisture ([place]-wound Skin Appearance) Assessed -Color ([place]-wound Skin Appearance) Assessed -Temperature ([place]-wound Skin No Abnormality Appearance) (Pt Warm) -Tenderness on Palpation ([place]-wound No Skin Appearance) -Ulcer Cleansing Wound Cleanser -Foul Odor after Cleansing No -Anesthetic Used 5% Lidocaine Gel #1 Right lateral Ankle -Combined with other wound No -Current Size (cm) - Length 2 -Current Size (cm) - Width 2 -Current Size (cm) - Depth 0.1 -Total Square Cm 4 -Photo Taken Yes -Tunneling No -Undermining/Tunneling No -Circular Undermining No -Exudate Amt Medium -Exudate Type Serosanguineous -Wound Margin Distinct, Outline Attached -Granulation Amt Medium (34-66%) -Granulation Quality [place] -Slough/Fibrin Yes -Necrosis Amt Medium (34-66%) -Necrotic Tissue Type Adherent Slough -Structure Exposed N/A -Texture ([place]-wound Skin Appearance) Assessed, Scarring -Moisture ([place]-wound Skin Appearance) Assessed -Color ([place]-wound Skin Appearance) Assessed -Temperature ([place]-wound Skin No Abnormality Appearance) (Pt Warm) -Tenderness on Palpation ([place]-wound No Skin Appearance) -Ulcer Cleansing Wound Cleanser -Foul Odor after Cleansing No -Anesthetic Used 5% Lidocaine Gel WC - Nurse 2 - General Ulcer CM Notes Start: 11/26/24 09:43 Freq: Status: Active Protocol: Activity Type Activity Date Activity User E-sign Co-sign Detail Recorded Client Recorded Date Recorded By Document 11/26/24 09:58 [id number] 11/26/24 10:08 11/26/24 09:58 Wound Center Nurse 2 #2 Left lateral Ankle -Time 09:59 -Correct Patient Yes -Correct Side, Site, Position Yes -Correct Procedure Yes -Procedure Performed Yes -Type of Procedure Debridement -Clinical Debridement Subcutaneous -Tissue Removed Subcutaneous -Post Debridement (cm) - Length 2.8 -Post Debridement (cm) - Width 2.4 -Post Debridement (cm) - Depth 0.1 -Total Square (Post) (cm) 6.72 -Area of Debridement (cm) - Length 2.8 -Area of Debridement (cm) - Width 2.4 -Total Square (Area) (cm) 6.72 -Tunneling No -Undermining/Tunneling No -Circular Undermining No -Wound/Ulcer Outcome Not Healed -Ulcer Cleansing Rinsed/ Irrigated with Saline -Foul Odor after Cleansing No -Bioengineered Tissue No -Bleeding Controlled with Pressure -Treatment Response Procedure Tolerated Well -Offloading No -Debridement - Subq, 1st 20sq cm No #1 Right lateral Ankle -Time 09:59 -Correct Patient Yes -Correct Side, Site, Position Yes -Correct Procedure Yes -Procedure Performed Yes -Type of Procedure Debridement -Clinical Debridement Subcutaneous -Tissue Removed Subcutaneous -Post Debridement (cm) - Length 2.2 -Post Debridement (cm) - Width 2.2 -Post Debridement (cm) - Depth 0.1 -Total Square (Post) (cm) 4.84 -Area of Debridement (cm) - Length 2.2 -Area of Debridement (cm) - Width 2.2 -Total Square (Area) (cm) 4.84 -Tunneling No -Undermining/Tunneling No -Circular Undermining No -Wound/Ulcer Outcome Not Healed -Ulcer Cleansing Rinsed/ Irrigated with Saline -Foul Odor after Cleansing No -Bioengineered Tissue No -Bleeding Controlled with Pressure -Treatment Response Procedure Tolerated Well -Offloading No -Debridement - Subq, 1st 20sq cm Yes Pain Scale: 0-10 Numeric Is Patient Pain Free? Yes - Nurse 3 - General Ulcer D/C NN Start: 11/26/24 09:43 Freq: Status: Active Protocol: Activity Type Activity Date Activity User E-sign Co-sign Detail Recorded Client Recorded Date Recorded By Document 11/26/24 10:25 NATALIE [id number] 11/26/24 10:26 NATALIE 11/26/24 10:25 Wound Care Center Nurse 3 #2 Left lateral Ankle -Ulcer Cleansing Rinsed/ Irrigated with Saline -Primary Dressing Applied Silicone Border Foam 4x4 -Other Dressing hydrogel/ moistened gauze -Silicone Border Foam 4x4 1 #1 Right lateral Ankle -Ulcer Cleansing Rinsed/ Irrigated with Saline -Primary Dressing Applied Silicone Border Foam 4x4 -Other Dressing hydrogel/ moistened gauze -Silicone Border Foam 4x4 1 Treatment Response Procedure Tolerated Well Pain Scale: 0-10 Numeric Is Patient Pain Free? Yes - Visit Discharge Discharge Condition Stable Ambulatory Status Wheelchair Transportation fernanda sheth Medication Reconcilliation completed & No provided to patient/care provider Clinical Summary of Care Provided Yes Additional Wound Wound debrided: Right lateral ankle/malleoli Type of Debridement: Excisional debridement Anesthesia Used: 5% Lidocaine Gel Depth: Down to and including healthy tissue and in the subcutaneous layer Percentage of wound debrided: 100 Instrument Used: 5mm curette Tissue Removed: Devitalized tissue Severity: Fat Layer Exposed Amount of bleeding with debridement: Mild Bleeding Controlled with: Pressure Patient tolerated procedure: Patient tolerated procedure well Assessment/Plan Assessment/Plan (1) Non-healing ulcer of left ankle with fat layer exposed: CODE(S): L97.322 - Non-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 No acute concerns at this time. Much better granulation appreciated today however, increasing circumference. X-rays down from his last visit with no significant concern for osteomyelitis. Still have not received labs from facility. Continue Santyl daily, nickel thick. Cover with moistened gauze and foam dressing. Consider switching from Santyl next week. Continue single-layer Tubigrip for compression and protection. Not a good candidate for hyperbaric oxygen treatment due to significant cognitive impairment. Recommend optimal diabetes control, adequate protein intake and offloading. Offloading boots/foam boots recommended, per his caregiver, this is being done at the facility/home. Instructions sent back to his facility. Follow-up in a week or sooner if needed This note was generated with [employer] software. It may contain incorrect words, spelling, and punctuation that were not noted in checking the note before signing.
--- NOTE | 2024-11-30 09:09 | WC ---
PHOTO 11/26/24 RIGHT ANKLE
[2024-12-03 09:59] VITALS: BP 112/68; PULSE 106; RESP 18; TEMP 36.1
--- NOTE | 2024-12-03 11:11 | PCM.WC.PN ---
History of Present Illness Date of Service: 12/03/24 Chief Complaint: Bilateral Foot Ulcers. History of Wound: Mr. Howe is a 69 yo referred to the wound center by his vascular surgery PA due to non healing bilateral ankle/foot ulcer. He is a poor historian due to memory impairment/dementia. Currently resides in a nursing facility. Per vascular surgery documentation, right lower extremity ulcer is chronic and left is more recent but has been present for months. Had imaging done including a CTA with no significant focal stenosis and three-vessel runoff. Also recently had repeat lower extremity arterial studies with no significant concerns noted. No indication for vascular intervention per documentation. History of diabetes mellitus type 2, no recent labs Progress of Wound: Here alone. Poor historian due to significant dementia. Increased erythema noted to left lateral ankle, also significantly more tender. Objective Data Objective Data Vital Signs: Vital Signs Temp Pulse Resp BP O2 Del Method 96.9 F L 106 H 18 112/68 Room Air 12/03/24 09:59 12/03/24 09:59 12/03/24 09:59 12/03/24 09:59 12/03/24 09:59 Oxygen Delivery Method Room Air Charges/Coding Procedures Integumentary 111xxx-113xx: 14755 Marilia subq tissue 20 sq cm/< Physical Exam Const alert and no apparent distress General Appearance: cooperative and comfortable HEENT normocephalic and head/scalp atraumatic Eyes EOMs intact bilaterally Neck full ROM General: normal visual inspection Resp normal respiratory effort Effort and Inspection: able to speak in complete sentences Skin General Skin Exam: petechiae Wounds: wounds noted size Size: See clinical note, bed beefy red, margins poorly approximated, no odor and surrounding erythema Neuro CN's II-XII intact bilaterally and moves all extremities Psych cooperative, affect normal and speech normal Debridement Note Debridement Note Wound debrided: Left lateral ankle Type of Debridement: Excisional debridement Anesthesia Used: 5% Lidocaine Gel Depth: Down to and including healthy tissue and in the subcutaneous layer Percentage of wound debrided: 100 Instrument Used: 7mm curette Tissue Removed: Devitalized tissue Severity: Fat Layer Exposed Amount of bleeding with debridement: Mild Bleeding Controlled with: Pressure Patient tolerated procedure: Patient tolerated procedure well Post-Debridement Measurements and Additional Note: Post-Debridement Measurements/Treatment JOIE - Nurse 1 - General Ulcer Assessment Start: 11/26/24 09:43 Freq: Status: Active Protocol: OFE Activity Type Activity Date Activity User E-sign Co-sign Detail Recorded Client Recorded Date Recorded By Document 11/26/24 09:44 RB [id number] 11/26/24 09:50 RB Document 12/03/24 09:59 KW [id number] 12/03/24 10:16 KW 11/26/24 12/03/24 09:44 09:59 - Today's Visit Information Type of service Follow-up Visit Follow-up Visit (Physician/MANUAL ARTS THERAPY TEACHER (Physician/MANUAL ARTS THERAPY TEACHER ) ) Arrival Mode Wheelchair Wheelchair Transfer Assistance Manual Transfer Assist (Other) two person Patient Identification Verified (Name & Yes Yes ) Patient Requires Transmission-Based No Precautions Vital Signs Temperature (97.8 F-99.1 F) 98 F 96.9 F L Temperature Source Temporal Temporal Pulse Rate (60-100) 78 106 H Pulse Location Monitor Monitor Respiratory Rate (12-18) 18 18 Respiratory rate source Observation Observation Oxygen Delivery Method Room Air Blood Pressure (90/60-120/80) 138/74 H 112/68 Blood Pressure Mean (mm Hg) 95 82 Source Monitor Monitor Position Semi-Fowlers Sitting Blood Pressure Location Left Arm Right Arm History Since Last Visit- (Skip if this is Patient's initial visit) Have you changed medications since your No No last visit? Any new allergies or adverse reactions No No Had a fall/change in ADL's that may No No increase risk of falls Signs or symptoms of abuse and/or No No neglect since last visit Have you been in the hospital since your No No last visit? Has dressing in place as prescribed Yes Yes Has compression in place as prescribed N/A N/A Has offloadiing in place as prescribed N/A N/A Experienced any changes in pain level or No No management Left Footwear No Footwear Right Footwear No Footwear Pain Scale: 0-10 Numeric Is Patient Pain Free? Yes Yes - Nurse 1 - General Ulcer Measurement Start: 11/26/24 09:43 Freq: Status: Active Protocol: Activity Type Activity Date Activity User E-sign Co-sign Detail Recorded Client Recorded Date Recorded By Document 11/26/24 09:44 RB [id number] 11/26/24 09:50 RB Document 12/03/24 09:59 KW [id number] 12/03/24 10:16 KW 11/26/24 12/03/24 09:44 09:59 Wound Center Nurse 1 #2 Left lateral Ankle -Combined with other wound No -Current Size (cm) - Length 3 3 -Current Size (cm) - Width 2.2 3 -Current Size (cm) - Depth 0.2 0.1 -Total Square Cm 6.6 9 -Date of Last Picture (Recall this 12/03/24 field) -Photo Taken Yes -Tunneling No -Undermining/Tunneling No -Circular Undermining No -Exudate Amt Medium Large -Exudate Type Serosanguineous Serosanguineous -Wound Margin Distinct, Thickened Outline Attached -Granulation Amt Medium (34-66%) Large (67-100%) -Granulation Quality [place] Red -Slough/Fibrin Yes -Necrosis Amt Medium (34-66%) -Necrotic Tissue Type Adherent Slough -Structure Exposed N/A -Texture ([place]-wound Skin Appearance) Assessed, Assessed, Scarring Localized Edema -Moisture ([place]-wound Skin Appearance) Assessed Assessed -Color ([place]-wound Skin Appearance) Assessed Assessed, Erythema -Temperature ([place]-wound Skin No Abnormality No Abnormality Appearance) (Pt Warm) (Pt Warm) -Tenderness on Palpation ([place]-wound No No Skin Appearance) -Ulcer Cleansing Wound Cleanser Soap and Water -Foul Odor after Cleansing No No -Anesthetic Used 5% Lidocaine 5% Lidocaine Gel Gel #1 Right lateral Ankle -Combined with other wound No -Current Size (cm) - Length 2 2 -Current Size (cm) - Width 2 2.5 -Current Size (cm) - Depth 0.1 0.1 -Total Square Cm 4 5.0 -Date of Last Picture (Recall this 12/03/24 field) -Photo Taken Yes -Tunneling No -Undermining/Tunneling No -Circular Undermining No -Exudate Amt Medium Medium -Exudate Type Serosanguineous Serosanguineous -Wound Margin Distinct, Thickened Outline Attached -Granulation Amt Medium (34-66%) Medium (34-66%) -Granulation Quality [place] Red -Slough/Fibrin Yes -Necrosis Amt Medium (34-66%) Medium (34-66%) -Necrotic Tissue Type Adherent Slough Adherent Slough -Structure Exposed N/A -Texture ([place]-wound Skin Appearance) Assessed, Assessed, Scarring Localized Edema -Moisture ([place]-wound Skin Appearance) Assessed Assessed -Color ([place]-wound Skin Appearance) Assessed Assessed, Erythema -Temperature ([place]-wound Skin No Abnormality No Abnormality Appearance) (Pt Warm) (Pt Warm) -Tenderness on Palpation ([place]-wound No Skin Appearance) -Ulcer Cleansing Wound Cleanser Soap and Water -Foul Odor after Cleansing No No -Anesthetic Used 5% Lidocaine 5% Lidocaine Gel Gel WC - Nurse 2 - General Ulcer CM Notes Start: 11/26/24 09:43 Freq: Status: Active Protocol: Activity Type Activity Date Activity User E-sign Co-sign Detail Recorded Client Recorded Date Recorded By Document 11/26/24 09:58 [id number] 11/26/24 10:08 Document 12/03/24 10:47 [id number] 12/03/24 10:58 11/26/24 12/03/24 09:58 10:47 Wound Center Nurse 2 #2 Left lateral Ankle -Time 09:59 10:53 -Correct Patient Yes Yes -Correct Side, Site, Position Yes Yes -Correct Procedure Yes Yes -Procedure Performed Yes Yes -Type of Procedure Debridement Debridement -Clinical Debridement Subcutaneous Subcutaneous -Tissue Removed Subcutaneous Subcutaneous -Post Debridement (cm) - Length 2.8 2.6 -Post Debridement (cm) - Width 2.4 2.2 -Post Debridement (cm) - Depth 0.1 0.1 -Total Square (Post) (cm) 6.72 5.72 -Area of Debridement (cm) - Length 2.8 2.6 -Area of Debridement (cm) - Width 2.4 2.2 -Total Square (Area) (cm) 6.72 5.72 -Tunneling No No -Undermining/Tunneling No No -Circular Undermining No No -Wound/Ulcer Outcome Not Healed Not Healed -Ulcer Cleansing Rinsed/ Rinsed/ Irrigated with Irrigated with Saline Saline -Foul Odor after Cleansing No No -Bioengineered Tissue No No -Bleeding Controlled with Pressure Pressure -Treatment Response Procedure Procedure Tolerated Well Tolerated Well -Offloading No No -Debridement - Subq, 1st 20sq cm No No #1 Right lateral Ankle -Time 09:59 10:54 -Correct Patient Yes Yes -Correct Side, Site, Position Yes Yes -Correct Procedure Yes Yes -Procedure Performed Yes Yes -Type of Procedure Debridement Debridement -Clinical Debridement Subcutaneous Subcutaneous -Tissue Removed Subcutaneous Subcutaneous -Post Debridement (cm) - Length 2.2 2.5 -Post Debridement (cm) - Width 2.2 2.3 -Post Debridement (cm) - Depth 0.1 0.1 -Total Square (Post) (cm) 4.84 5.75 -Area of Debridement (cm) - Length 2.2 2.5 -Area of Debridement (cm) - Width 2.2 2.3 -Total Square (Area) (cm) 4.84 5.75 -Tunneling No No -Undermining/Tunneling No No -Circular Undermining No No -Wound/Ulcer Outcome Not Healed Not Healed -Ulcer Cleansing Rinsed/ Rinsed/ Irrigated with Irrigated with Saline Saline -Foul Odor after Cleansing No No -Bioengineered Tissue No No -Bleeding Controlled with Pressure Pressure -Treatment Response Procedure Procedure Tolerated Well Tolerated Well -Offloading No No -Debridement - Subq, 1st 20sq cm Yes Yes Pain Scale: 0-10 Numeric Is Patient Pain Free? Yes Yes - Nurse 3 - General Ulcer D/C NN Start: 11/26/24 09:43 Freq: Status: Active Protocol: Activity Type Activity Date Activity User E-sign Co-sign Detail Recorded Client Recorded Date Recorded By Document 11/26/24 10:25 [id number] 11/26/24 10:26 NATALIE 11/26/24 10:25 Wound Care Center Nurse 3 #2 Left lateral Ankle -Ulcer Cleansing Rinsed/ Irrigated with Saline -Primary Dressing Applied Silicone Border Foam 4x4 -Other Dressing hydrogel/ moistened gauze -Silicone Border Foam 4x4 1 #1 Right lateral Ankle -Ulcer Cleansing Rinsed/ Irrigated with Saline -Primary Dressing Applied Silicone Border Foam 4x4 -Other Dressing hydrogel/ moistened gauze -Silicone Border Foam 4x4 1 Treatment Response Procedure Tolerated Well Pain Scale: 0-10 Numeric Is Patient Pain Free? Yes - Visit Discharge Discharge Condition Stable Ambulatory Status Wheelchair Transportation fernanda sheth Medication Reconcilliation completed & No provided to patient/care provider Clinical Summary of Care Provided Yes Additional Wound Wound debrided: Right lateral ankle Type of Debridement: Excisional debridement Anesthesia Used: 5% Lidocaine Gel Depth: Down to and including healthy tissue Percentage of wound debrided: 100 Instrument Used: 7mm curette Tissue Removed: Devitalized tissue Severity: Fat Layer Exposed Amount of bleeding with debridement: Mild Bleeding Controlled with: Pressure Patient tolerated procedure: Patient tolerated procedure well Assessment/Plan Assessment/Plan (1) Non-healing ulcer of left ankle with fat layer exposed: CODE(S): L97.322 - Non-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 Increased erythema and tenderness noted on the left as discussed above. No significant change in size. Unable to give history on drainage or other concerns due to his significant dementia, he is here alone. X-rays down from his last visit with no significant concern for osteomyelitis however, due to concerns listed above an MRI was ordered. Repeat culture also taken. Requested labs from this facility however we have not received this. CBC, CMP, ESR, CRP, A1Cand prealbumin ordered, will review. Continue Santyl daily, nickel thick. Cover with moistened gauze and foam dressing. Continue single-layer Tubigrip for compression and protection. Not a good candidate for hyperbaric oxygen treatment due to significant cognitive impairment. Recommend optimal diabetes control, adequate protein intake and offloading. Offloading boots/foam boots recommended. Instructions sent back to his facility. Follow-up in a week or sooner if needed This note was generated with [employer] dictation software. It may contain incorrect words, spelling, and punctuation that were not noted in checking the note before signing.
--- NOTE | 2024-12-04 10:23 | WC ---
PHOTO 12/03/24 L LATERAL ANKLE
--- NOTE | 2024-12-04 10:24 | WC ---
PHOTO 12/03/24 RIGHT LATERAL ANKLE
[2024-12-10 09:37] VITALS: BP 113/66; PULSE 94; RESP 16; TEMP 37
--- NOTE | 2024-12-10 11:09 | PCM.WC.PN ---
History of Present Illness Date of Service: 12/10/24 Chief Complaint: Bilateral Foot Ulcers. History of Wound: Mr. Howe is a 69 yo referred to the wound center by his vascular surgery PA due to non healing bilateral ankle/foot ulcer. He is a poor historian due to memory impairment/dementia. Currently resides in a nursing facility. Per vascular surgery documentation, right lower extremity ulcer is chronic and left is more recent but has been present for months. Had imaging done including a CTA with no significant focal stenosis and three-vessel runoff. Also recently had repeat lower extremity arterial studies with no significant concerns noted. No indication for vascular intervention per documentation. History of diabetes mellitus type 2, no recent labs Progress of Wound: Here with a caregiver. No new concerns reported by the caregiver or patient. MRI done suggestive of early early osteomyelitis. Cultures done grew MRSA. Labs were ordered at his last visit however, not done. Objective Data Objective Data Vital Signs: Vital Signs Temp Pulse Resp BP O2 Del Method 98.6 F 94 16 113/66 Room Air 12/10/24 09:37 12/10/24 09:37 12/10/24 09:37 12/10/24 09:37 12/10/24 09:37 Oxygen Delivery Method Room Air Lab / Micro Data Micro: Microbiology 12/03/24 10:51 Wound - Ankle Gram Stain - Final 12/03/24 10:51 Wound - Ankle Wound Culture - Final Meth. resistant Staph. aureus 12/03/24 10:51 Wound - Ankle Anaerobic Culture - Preliminary Checking for anaerobes, further studies to follow. Charges/Coding Procedures Integumentary 111xxx-113xx: [id number] Marilia subq tissue 20 sq cm/< Physical Exam Const alert and no apparent distress General Appearance: cooperative and comfortable HEENT normocephalic and head/scalp atraumatic Eyes EOMs intact bilaterally Neck full ROM General: normal visual inspection Resp normal respiratory effort Effort and Inspection: able to speak in complete sentences Skin General Skin Exam: petechiae Wounds: wounds noted size Size: See clinical note, bed granulating well, margins well approximated, no odor and surrounding erythema Neuro CN's II-XII intact bilaterally and moves all extremities Psych cooperative, affect normal and speech normal Debridement Note Debridement Note Wound debrided: Left foot/lateral ankle Type of Debridement: Excisional debridement Anesthesia Used: 5% Lidocaine Gel Depth: Down to and including healthy tissue and in the subcutaneous layer Percentage of wound debrided: 100 Instrument Used: 5mm curette Tissue Removed: Slough and vitalized tissue Severity: Fat Layer Exposed Amount of bleeding with debridement: Moderate Bleeding Controlled with: Pressure Patient tolerated procedure: Patient tolerated procedure well Post-Debridement Measurements and Additional Note: Post-Debridement Measurements/Treatment WC - Nurse 1 - General Ulcer Assessment Start: 11/26/24 09:43 Freq: Status: Active Protocol: OFE Activity Type Activity Date Activity User E-sign Co-sign Detail Recorded Client Recorded Date Recorded By Document 11/26/24 09:44 RB [id number] 11/26/24 09:50 RB Document 12/03/24 09:59 KW [id number] 12/03/24 10:16 KW Document 12/10/24 09:37 KW [id number] 12/10/24 09:53 KW 11/26/24 12/03/24 12/10/24 09:44 09:59 09:37 WC - Today's Visit Information Type of service Follow-up Visit Follow-up Visit Follow-up Visit (Physician/TELECOMMUNICATIONS NETWORK PLANNER (Physician/TELECOMMUNICATIONS NETWORK PLANNER (Physician/TELECOMMUNICATIONS NETWORK PLANNER ) ) ) Arrival Mode Wheelchair Wheelchair Wheelchair Transfer Assistance Manual Manual Transfer Assist (Other) two person Patient Identification Verified (Name & Yes Yes Yes ) Patient Requires Transmission-Based No Precautions Vital Signs Temperature (97.8 F-99.1 F) 98 F 96.9 F L 98.6 F Temperature Source Temporal Temporal Temporal Pulse Rate (60-100) 78 106 H 94 Pulse Location Monitor Monitor Monitor Respiratory Rate (12-18) 18 18 16 Respiratory rate source Observation Observation Observation Oxygen Delivery Method Room Air Room Air Blood Pressure (90/60-120/80) 138/74 H 112/68 113/66 Blood Pressure Mean (mm Hg) 95 82 81 Source Monitor Monitor Monitor Position Semi-Fowlers Sitting Sitting Blood Pressure Location Left Arm Right Arm Left Arm History Since Last Visit- (Skip if this is Patient's initial visit) Have you changed medications since your No No No last visit? Any new allergies or adverse reactions No No No Had a fall/change in ADL's that may No No No increase risk of falls Signs or symptoms of abuse and/or No No No neglect since last visit Have you been in the hospital since your No No No last visit? Has dressing in place as prescribed Yes Yes Yes Has compression in place as prescribed N/A N/A Yes Has offloadiing in place as prescribed N/A N/A Yes Experienced any changes in pain level or No No No management Left Footwear No Footwear No Footwear Right Footwear No Footwear No Footwear Pain Scale: 0-10 Numeric Is Patient Pain Free? Yes Yes Yes WC - Nurse 1 - General Ulcer Measurement Start: 11/26/24 09:43 Freq: Status: Active Protocol: Activity Type Activity Date Activity User E-sign Co-sign Detail Recorded Client Recorded Date Recorded By Document 11/26/24 09:44 RB [id number] 11/26/24 09:50 RB Document 12/03/24 09:59 KW [id number] 12/03/24 10:16 KW Document 12/10/24 09:37 KW [id number] 12/10/24 09:53 KW 11/26/24 12/03/24 12/10/24 09:44 09:59 09:37 Wound Center Nurse 1 #2 Left lateral Ankle -Combined with other wound No -Current Size (cm) - Length 3 3 0.1 -Current Size (cm) - Width 2.2 3 0.1 -Current Size (cm) - Depth 0.2 0.1 0.1 -Total Square Cm 6.6 9 0.01 -Date of Last Picture (Recall this 12/03/24 12/10/24 field) -Photo Taken Yes -Tunneling No -Undermining/Tunneling No -Circular Undermining No -Exudate Amt Medium Large Large -Exudate Type Serosanguineous Serosanguineous Serosanguineous -Wound Margin Distinct, Thickened Distinct, Outline Outline Attached Attached -Granulation Amt Medium (34-66%) Large (67-100%) Large (67-100%) -Granulation Quality [place] Red Red -Slough/Fibrin Yes -Necrosis Amt Medium (34-66%) -Necrotic Tissue Type Adherent Slough -Structure Exposed N/A -Texture ([place]-wound Skin Appearance) Assessed, Assessed, Assessed, Scarring Localized Edema Localized Edema -Moisture ([place]-wound Skin Appearance) Assessed Assessed Assessed -Color ([place]-wound Skin Appearance) Assessed Assessed, Assessed, Erythema Erythema -Temperature ([place]-wound Skin No Abnormality No Abnormality Appearance) (Pt Warm) (Pt Warm) -Tenderness on Palpation ([place]-wound No No Skin Appearance) -Ulcer Cleansing Wound Cleanser Soap and Water Soap and Water -Foul Odor after Cleansing No No No -Anesthetic Used 5% Lidocaine 5% Lidocaine 5% Lidocaine Gel Gel Gel -Wound Comment(s) no meaqsurement in nurse 1 #1 Right lateral Ankle -Combined with other wound No -Current Size (cm) - Length 2 2 0.1 -Current Size (cm) - Width 2 2.5 0.1 -Current Size (cm) - Depth 0.1 0.1 0.1 -Total Square Cm 4 5.0 0.01 -Date of Last Picture (Recall this 12/03/24 12/10/24 field) -Photo Taken Yes -Tunneling No -Undermining/Tunneling No -Circular Undermining No -Exudate Amt Medium Medium Large -Exudate Type Serosanguineous Serosanguineous Serosanguineous -Wound Margin Distinct, Thickened Distinct, Outline Outline Attached Attached -Granulation Amt Medium (34-66%) Medium (34-66%) Large (67-100%) -Granulation Quality [place] Red Red -Slough/Fibrin Yes -Necrosis Amt Medium (34-66%) Medium (34-66%) -Necrotic Tissue Type Adherent Slough Adherent Slough -Structure Exposed N/A -Texture ([place]-wound Skin Appearance) Assessed, Assessed, Assessed, Scarring Localized Edema Localized Edema -Moisture ([place]-wound Skin Appearance) Assessed Assessed Assessed -Color ([place]-wound Skin Appearance) Assessed Assessed, Assessed, Erythema Erythema -Temperature ([place]-wound Skin No Abnormality No Abnormality No Abnormality Appearance) (Pt Warm) (Pt Warm) (Pt Warm) -Tenderness on Palpation ([place]-wound No No Skin Appearance) -Ulcer Cleansing Wound Cleanser Soap and Water Soap and Water -Foul Odor after Cleansing No No No -Anesthetic Used 5% Lidocaine 5% Lidocaine 5% Lidocaine Gel Gel Gel -Wound Comment(s) no measurement in nurse 1 WC - Nurse 2 - General Ulcer CM Notes Start: 11/26/24 09:43 Freq: Status: Active Protocol: Activity Type Activity Date Activity User E-sign Co-sign Detail Recorded Client Recorded Date Recorded By Document 11/26/24 09:58 [id number] 11/26/24 10:08 Document 12/03/24 10:47 [id number] 12/03/24 10:58 GM Document 12/10/24 10:18 DS [id number] 12/10/24 10:19 DS 11/26/24 12/03/24 12/10/24 09:58 10:47 10:18 Wound Center Nurse 2 #2 Left lateral Ankle -Time 09: 10:53 10:18 -Correct Patient Yes Yes Yes -Correct Side, Site, Position Yes Yes Yes -Correct Procedure Yes Yes Yes -Procedure Performed Yes Yes Yes -Type of Procedure Debridement Debridement Debridement -Clinical Debridement Subcutaneous Subcutaneous Subcutaneous -Tissue Removed Subcutaneous Subcutaneous Subcutaneous -Post Debridement (cm) - Length 2.8 2.6 2.5 -Post Debridement (cm) - Width 2.4 2.2 2.3 -Post Debridement (cm) - Depth 0.1 0.1 0.1 -Total Square (Post) (cm) 6.72 5.72 5.75 -Area of Debridement (cm) - Length 2.8 2.6 2.5 -Area of Debridement (cm) - Width 2.4 2.2 2.3 -Total Square (Area) (cm) 6.72 5.72 5.75 -Tunneling No No No -Undermining/Tunneling No No No -Circular Undermining No No No -Wound/Ulcer Outcome Not Healed Not Healed Not Healed -Ulcer Cleansing Rinsed/ Rinsed/ Rinsed/ Irrigated with Irrigated with Irrigated with Saline Saline Saline -Foul Odor after Cleansing No No No -Bioengineered Tissue No No No -Bleeding Controlled with Pressure Pressure Pressure -Treatment Response Procedure Procedure Procedure Tolerated Well Tolerated Well Tolerated Well -Offloading No No -Debridement - Subq, 1st 20sq cm No No Yes #1 Right lateral Ankle -Time 09: 10:54 10:18 -Correct Patient Yes Yes Yes -Correct Side, Site, Position Yes Yes Yes -Correct Procedure Yes Yes Yes -Procedure Performed Yes Yes Yes -Type of Procedure Debridement Debridement Debridement -Clinical Debridement Subcutaneous Subcutaneous Subcutaneous -Tissue Removed Subcutaneous Subcutaneous Subcutaneous -Post Debridement (cm) - Length 2.2 2.5 2.4 -Post Debridement (cm) - Width 2.2 2.3 2.5 -Post Debridement (cm) - Depth 0.1 0.1 0.1 -Total Square (Post) (cm) 4.84 5.75 6.00 -Area of Debridement (cm) - Length 2.2 2.5 2.4 -Area of Debridement (cm) - Width 2.2 2.3 2.5 -Total Square (Area) (cm) 4.84 5.75 6.00 -Tunneling No No No -Undermining/Tunneling No No No -Circular Undermining No No No -Wound/Ulcer Outcome Not Healed Not Healed Not Healed -Ulcer Cleansing Rinsed/ Rinsed/ Rinsed/ Irrigated with Irrigated with Irrigated with Saline Saline Saline -Foul Odor after Cleansing No No No -Bioengineered Tissue No No No -Bleeding Controlled with Pressure Pressure Pressure -Treatment Response Procedure Procedure Procedure Tolerated Well Tolerated Well Tolerated Well -Offloading No No -Debridement - Subq, 1st 20sq cm Yes Yes No Pain Scale: 0-10 Numeric Is Patient Pain Free? Yes Yes Yes WC - Nurse 3 - General Ulcer D/C NN Start: 11/26/24 09:43 Freq: Status: Active Protocol: Activity Type Activity Date Activity User E-sign Co-sign Detail Recorded Client Recorded Date Recorded By Document 11/26/24 10:25 RB [id number] 11/26/24 10:26 RB Document 12/03/24 11:11 DS [id number] 12/03/24 11:20 DS Document 12/10/24 10:37 JF [id number] 12/10/24 10:38 11/26/24 12/03/24 12/10/24 10:25 11:11 10:37 Wound Care Center Nurse 3 #2 Left lateral Ankle -Ulcer Cleansing Rinsed/ Rinsed/ Irrigated with Irrigated with Saline Saline -Foul Odor after Cleansing No -Primary Dressing Applied Silicone Border C Hydrogel, Silicone Border Foam 4x4 Silicone Border Foam 4x4 Foam 4x4 -Other Dressing hydrogel/ dakins moistened gauze -Primary Dressing Covered/Secured with Dry Gauze Dry Gauze -Hydrogel 0 -Silicone Border Foam 4x4 1 1 1 -Silicone Border Foam 6x6 0 -Wound Comment(s) c. santyl ordered - hydrogel at wound center til gets medication #1 Right lateral Ankle -Ulcer Cleansing Rinsed/ Not Cleansed Rinsed/ Irrigated with Irrigated with Saline Saline -Foul Odor after Cleansing No No -Primary Dressing Applied Silicone Border C Hydrogel, Silicone Border Foam 4x4 Silicone Border Foam 4x4 Foam 4x4 -Other Dressing hydrogel/ dakins moistened gauze -Hydrogel 0 -Silicone Border Foam 4x4 1 1 1 -Silicone Border Foam 6x6 0 -Wound Comment(s) alyson tejeda ordered - hydrogel at wound center til gets medication Treatment Response Procedure Tolerated Well Pain Scale: 0-10 Numeric Is Patient Pain Free? Yes Yes Yes WC - Visit Discharge Discharge Condition Stable Stable Ambulatory Status Wheelchair Wheelchair Transportation fernanda [employer] Accompanied by custodial attendent Medication Reconcilliation completed & No Yes provided to patient/care provider Clinical Summary of Care Provided Yes Yes Additional Wound Wound debrided: Right foot/lateral ankle Type of Debridement: Excisional debridement Anesthesia Used: 5% Lidocaine Gel Depth: Down to and including healthy tissue and in the subcutaneous layer Percentage of wound debrided: 100 Instrument Used: 5mm curette Tissue Removed: Slough and devitalized tissue Severity: Fat Layer Exposed Amount of bleeding with debridement: Mild Bleeding Controlled with: Pressure Patient tolerated procedure: Patient tolerated procedure well Assessment/Plan Assessment/Plan (1) Non-healing ulcer of left ankle with fat layer exposed: CODE(S): L97.322 - Non-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 Ulcers appear stable/good granulation. Has been using Santyl. Recent MRI and cultures reviewed. MRI on the left suggestive of early osteomyelitis. Discussed/reviewed with podiatry and since it is early and ulcer looks okay, recommend antibiotics per culture and sensitivity for 6 weeks. Switch dressing to Dakin's daily or twice daily as needed. Cover with gauze and foam dressing. If no significant improvement or if worsening is noted, will get a bone biopsy/reevaluate treatment plan. Discussed with caregiver and she voiced understanding. Prescription for 6 weeks of doxycycline sent to pharmacy. Continue single-layer Tubigrip for compression and protection. Not a good candidate for hyperbaric oxygen treatment due to significant cognitive impairment. Recommend optimal diabetes control, adequate protein intake and offloading. Offloading boots/foam boots have been recommended. Instructions sent back to his facility. Follow-up in a week or sooner if needed. This note was generated with [employer] dictation software. It may contain incorrect words, spelling, and punctuation that were not noted in checking the note before signing.
--- NOTE | 2024-12-14 09:23 | WC ---
PHOTO 12/10/24 RIGHT LATERAL ANKLE
--- NOTE | 2024-12-14 09:25 | WC ---
PHOTO 12/10/24 LEFT LAT ANKLE
--- NOTE | 2024-12-17 10:21 | PN.PCM_ITS ---
History of Present Illness Date of Service: 12/17/24 Chief Complaint: Bilateral Foot Ulcers. History of Wound: Mr. Howe is a 69 yo referred to the wound center by his vascular surgery PA due to non healing bilateral ankle/foot ulcer. He is a poor historian due to memory impairment/dementia. Currently resides in a nursing facility. Per vascular surgery documentation, right lower extremity ulcer is chronic and left is more recent but has been present for months. Had imaging done including a CTA with no significant focal stenosis and three-vessel runoff. Also recently had repeat lower extremity arterial studies with no significant concerns noted. No indication for vascular intervention per documentation. History of diabetes mellitus type 2, no recent labs Progress of Wound: No acute concerns at this time. Started on doxycycline and switched to Dakin's at his last visit. Some improvement noted. Plan is for 6 weeks of doxycycline due to early osteomyelitis noted on MRI. Objective Data Objective Data Vital Signs: Vital Signs Temp Pulse Resp BP O2 Del Method 98.6 F 94 16 113/66 Room Air 12/10/24 09:37 12/10/24 09:37 12/10/24 09:37 12/10/24 09:37 12/10/24 09:37 Oxygen Delivery Method Room Air Lab / Micro Data Micro: Microbiology 12/03/24 10:51 Wound - Ankle Gram Stain - Final 12/03/24 10:51 Wound - Ankle Wound Culture - Final Meth. resistant Staph. aureus 12/03/24 10:51 Wound - Ankle Anaerobic Culture - Final No anaerobic bacteria isolated. Charges/Coding Procedures Integumentary [id number]: [id number] Marilia subq tissue 20 sq cm/< Physical Exam Const alert and no apparent distress General Appearance: cooperative and comfortable HEENT normocephalic and head/scalp atraumatic Eyes EOMs intact bilaterally Neck full ROM General: normal visual inspection Resp normal respiratory effort Effort and Inspection: able to speak in complete sentences Skin General Skin Exam: petechiae Wounds: wounds noted size Size: See clinical note, bed granulating well, margins well approximated, no odor and surrounding erythema Neuro CN's II-XII intact bilaterally and moves all extremities Psych cooperative, affect normal and speech normal Debridement Note Debridement Note Wound debrided: Left lateral ankle Type of Debridement: Excisional debridement Anesthesia Used: 5% Lidocaine Gel Depth: Down to and including healthy tissue and in the subcutaneous layer Percentage of wound debrided: 100 Instrument Used: 5mm curette Tissue Removed: Devitalized tissue Severity: Fat Layer Exposed Amount of bleeding with debridement: Mild Bleeding Controlled with: Pressure Patient tolerated procedure: Patient tolerated procedure well Post-Debridement Measurements and Additional Note: Post-Debridement Measurements/Treatment WC - Nurse 1 - General Ulcer Assessment Start: 11/26/24 09:43 Freq: Status: Active Protocol: WC.LOWEXRowan Activity Type Activity Date Activity User E-sign Co-sign Detail Recorded Client Recorded Date Recorded By Document 11/26/24 09:44 RB [id number] 11/26/24 09:50 RB Document 12/03/24 09:59 KW [id number] 12/03/24 10:16 KW Document 12/10/24 09:37 KW [id number] 12/10/24 09:53 KW Document 12/17/24 09:44 KW [id number] 12/17/24 09:59 KW 11/26/24 12/03/24 12/10/24 09:44 09:59 09:37 WC - Today's Visit Information Type of service Follow-up Visit Follow-up Visit Follow-up Visit (Physician/CREW SUPERVISOR (Physician/CREW SUPERVISOR (Physician/CREW SUPERVISOR ) ) ) Arrival Mode Wheelchair Wheelchair Wheelchair Transfer Assistance Manual Manual Transfer Assist (Other) two person Patient Identification Verified (Name & Yes Yes Yes ) Patient Requires Transmission-Based No Precautions Vital Signs Temperature (97.8 F-99.1 F) 98 F 96.9 F L 98.6 F Temperature Source Temporal Temporal Temporal Pulse Rate (60-100) 78 106 H 94 Pulse Location Monitor Monitor Monitor Respiratory Rate (12-18) 18 18 16 Respiratory rate source Observation Observation Observation Oxygen Delivery Method Room Air Room Air Blood Pressure (90/60-120/80) 138/74 H 112/68 113/66 Blood Pressure Mean (mm Hg) 95 82 81 Source Monitor Monitor Monitor Position Semi-Fowlers Sitting Sitting Blood Pressure Location Left Arm Right Arm Left Arm History Since Last Visit- (Skip if this is Patient's initial visit) Have you changed medications since your No No No last visit? Any new allergies or adverse reactions No No No Had a fall/change in ADL's that may No No No increase risk of falls Signs or symptoms of abuse and/or No No No neglect since last visit Have you been in the hospital since your No No No last visit? Has dressing in place as prescribed Yes Yes Yes Has compression in place as prescribed N/A N/A Yes Has offloadiing in place as prescribed N/A N/A Yes Experienced any changes in pain level or No No No management Left Footwear No Footwear No Footwear Right Footwear No Footwear No Footwear Pain Scale: 0-10 Numeric Is Patient Pain Free? Yes Yes Yes 12/17/24 09:44 WC - Today's Visit Information Type of service Follow-up Visit (Physician/CREW SUPERVISOR ) Arrival Mode Wheelchair Transfer Assistance Transfer Assist (Other) Patient Identification Verified (Name & Yes ) Patient Requires Transmission-Based Precautions Vital Signs Temperature (97.8 F-99.1 F) Temperature Source Temporal Pulse Rate (60-100) Pulse Location Monitor Respiratory Rate (12-18) Respiratory rate source Observation Oxygen Delivery Method Blood Pressure (90/60-120/80) Blood Pressure Mean (mm Hg) Source Monitor Position Sitting Blood Pressure Location Left Arm History Since Last Visit- (Skip if this is Patient's initial visit) Have you changed medications since your last visit? Any new allergies or adverse reactions Had a fall/change in ADL's that may increase risk of falls Signs or symptoms of abuse and/or neglect since last visit Have you been in the hospital since your last visit? Has dressing in place as prescribed Has compression in place as prescribed Has offloadiing in place as prescribed Experienced any changes in pain level or management Left Footwear Right Footwear Pain Scale: 0-10 Numeric Is Patient Pain Free? Yes - Nurse 1 - General Ulcer Measurement Start: 11/26/24 09:43 Freq: Status: Active Protocol: Activity Type Activity Date Activity User E-sign Co-sign Detail Recorded Client Recorded Date Recorded By Document 11/26/24 09:44 RB [id number] 11/26/24 09:50 RB Document 12/03/24 09:59 KW [id number] 12/03/24 10:16 KW Document 12/10/24 09:37 KW [id number] 12/10/24 09:53 KW Document 12/17/24 09:44 KW [id number] 12/17/24 09:59 KW 11/26/24 12/03/24 12/10/24 09:44 09:59 09:37 Wound Center Nurse 1 #2 Left lateral Ankle -Combined with other wound No -Current Size (cm) - Length 3 3 0.1 -Current Size (cm) - Width 2.2 3 0.1 -Current Size (cm) - Depth 0.2 0.1 0.1 -Total Square Cm 6.6 9 0.01 -Date of Last Picture (Recall this 12/03/24 12/10/24 field) -Photo Taken Yes -Tunneling No -Undermining/Tunneling No -Circular Undermining No -Exudate Amt Medium Large Large -Exudate Type Serosanguineous Serosanguineous Serosanguineous -Wound Margin Distinct, Thickened Distinct, Outline Outline Attached Attached -Granulation Amt Medium (34-66%) Large (67-100%) Large (67-100%) -Granulation Quality [place] Red Red -Slough/Fibrin Yes -Necrosis Amt Medium (34-66%) -Necrotic Tissue Type Adherent Slough -Structure Exposed N/A -Texture ([place]-wound Skin Appearance) Assessed, Assessed, Assessed, Scarring Localized Edema Localized Edema -Moisture ([place]-wound Skin Appearance) Assessed Assessed Assessed -Color ([place]-wound Skin Appearance) Assessed Assessed, Assessed, Erythema Erythema -Temperature ([place]-wound Skin No Abnormality No Abnormality Appearance) (Pt Warm) (Pt Warm) -Tenderness on Palpation ([place]-wound No No Skin Appearance) -Ulcer Cleansing Wound Cleanser Soap and Water Soap and Water -Foul Odor after Cleansing No No No -Anesthetic Used 5% Lidocaine 5% Lidocaine 5% Lidocaine Gel Gel Gel -Wound Comment(s) no meaqsurement in nurse 1 #1 Right lateral Ankle -Combined with other wound No -Current Size (cm) - Length 2 2 0.1 -Current Size (cm) - Width 2 2.5 0.1 -Current Size (cm) - Depth 0.1 0.1 0.1 -Total Square Cm 4 5.0 0.01 -Date of Last Picture (Recall this 12/03/24 12/10/24 field) -Photo Taken Yes -Tunneling No -Undermining/Tunneling No -Circular Undermining No -Exudate Amt Medium Medium Large -Exudate Type Serosanguineous Serosanguineous Serosanguineous -Wound Margin Distinct, Thickened Distinct, Outline Outline Attached Attached -Granulation Amt Medium (34-66%) Medium (34-66%) Large (67-100%) -Granulation Quality [place] Red Red -Slough/Fibrin Yes -Necrosis Amt Medium (34-66%) Medium (34-66%) -Necrotic Tissue Type Adherent Slough Adherent Slough -Structure Exposed N/A -Texture ([place]-wound Skin Appearance) Assessed, Assessed, Assessed, Scarring Localized Edema Localized Edema -Moisture ([place]-wound Skin Appearance) Assessed Assessed Assessed -Color ([place]-wound Skin Appearance) Assessed Assessed, Assessed, Erythema Erythema -Temperature ([place]-wound Skin No Abnormality No Abnormality No Abnormality Appearance) (Pt Warm) (Pt Warm) (Pt Warm) -Tenderness on Palpation ([place]-wound No No Skin Appearance) -Ulcer Cleansing Wound Cleanser Soap and Water Soap and Water -Foul Odor after Cleansing No No No -Anesthetic Used 5% Lidocaine 5% Lidocaine 5% Lidocaine Gel Gel Gel -Wound Comment(s) no measurement in nurse 1 12/17/24 09:44 Wound Center Nurse 1 #2 Left lateral Ankle -Combined with other wound -Current Size (cm) - Length 2.4 -Current Size (cm) - Width 1.5 -Current Size (cm) - Depth 0.1 -Total Square Cm 3.60 -Date of Last Picture (Recall this 12/17/24 field) -Photo Taken -Tunneling -Undermining/Tunneling -Circular Undermining -Exudate Amt Medium -Exudate Type Serosanguineous -Wound Margin Distinct, Outline Attached -Granulation Amt Large (67-100%) -Granulation Quality Red -Slough/Fibrin -Necrosis Amt -Necrotic Tissue Type -Structure Exposed -Texture ([place]-wound Skin Appearance) Assessed -Moisture ([place]-wound Skin Appearance) Assessed -Color ([place]-wound Skin Appearance) Assessed, Ecchymosis -Temperature ([place]-wound Skin No Abnormality Appearance) (Pt Warm) -Tenderness on Palpation ([place]-wound No Skin Appearance) -Ulcer Cleansing Soap and Water -Foul Odor after Cleansing No -Anesthetic Used 5% Lidocaine Gel -Wound Comment(s) #1 Right lateral Ankle -Combined with other wound -Current Size (cm) - Length 2 -Current Size (cm) - Width 2 -Current Size (cm) - Depth 0.1 -Total Square Cm 4 -Date of Last Picture (Recall this 12/17/24 field) -Photo Taken -Tunneling -Undermining/Tunneling -Circular Undermining -Exudate Amt Medium -Exudate Type Serosanguineous -Wound Margin Distinct, Outline Attached -Granulation Amt Large (67-100%) -Granulation Quality Red -Slough/Fibrin -Necrosis Amt -Necrotic Tissue Type -Structure Exposed -Texture ([place]-wound Skin Appearance) Assessed -Moisture ([place]-wound Skin Appearance) Assessed -Color ([place]wound Skin Appearance) Assessed, Ecchymosis -Temperature ([place]wound Skin No Abnormality Appearance) (Pt Warm) -Tenderness on Palpation ([place]-wound No Skin Appearance) -Ulcer Cleansing Soap and Water -Foul Odor after Cleansing No -Anesthetic Used 5% Lidocaine Gel -Wound Comment(s) WC - Nurse 2 - General Ulcer CM Notes Start: 11/26/24 09:43 Freq: Status: Active Protocol: Activity Type Activity Date Activity User E-sign Co-sign Detail Recorded Client Recorded Date Recorded By Document 11/26/24 09:58 GM [id number] 11/26/24 10:08 GM Document 12/03/24 10:47 GM [id number] 12/03/24 10:58 GM Document 12/10/24 10:18 DS [id number] 12/10/24 10:19 DS Document 12/17/24 10:14 DS [id number] 12/17/24 10:15 DS 11/26/24 12/03/24 12/10/24 09:58 10:47 10:18 Wound Center Nurse 2 #2 Left lateral Ankle -Time 09:59 10:53 10:18 -Correct Patient Yes Yes Yes -Correct Side, Site, Position Yes Yes Yes -Correct Procedure Yes Yes Yes -Procedure Performed Yes Yes Yes -Type of Procedure Debridement Debridement Debridement -Clinical Debridement Subcutaneous Subcutaneous Subcutaneous -Tissue Removed Subcutaneous Subcutaneous Subcutaneous -Post Debridement (cm) - Length 2.8 2.6 2.5 -Post Debridement (cm) - Width 2.4 2.2 2.3 -Post Debridement (cm) - Depth 0.1 0.1 0.1 -Total Square (Post) (cm) 6.72 5.72 5.75 -Area of Debridement (cm) - Length 2.8 2.6 2.5 -Area of Debridement (cm) - Width 2.4 2.2 2.3 -Total Square (Area) (cm) 6.72 5.72 5.75 -Tunneling No No No -Undermining/Tunneling No No No -Circular Undermining No No No -Wound/Ulcer Outcome Not Healed Not Healed Not Healed -Ulcer Cleansing Rinsed/ Rinsed/ Rinsed/ Irrigated with Irrigated with Irrigated with Saline Saline Saline -Foul Odor after Cleansing No No No -Bioengineered Tissue No No No -Bleeding Controlled with Pressure Pressure Pressure -Treatment Response Procedure Procedure Procedure Tolerated Well Tolerated Well Tolerated Well -Offloading No No -Debridement - Subq, 1st 20sq cm No No Yes #1 Right lateral Ankle -Time 09:59 10:54 10:18 -Correct Patient Yes Yes Yes -Correct Side, Site, Position Yes Yes Yes -Correct Procedure Yes Yes Yes -Procedure Performed Yes Yes Yes -Type of Procedure Debridement Debridement Debridement -Clinical Debridement Subcutaneous Subcutaneous Subcutaneous -Tissue Removed Subcutaneous Subcutaneous Subcutaneous -Post Debridement (cm) - Length 2.2 2.5 2.4 -Post Debridement (cm) - Width 2.2 2.3 2.5 -Post Debridement (cm) - Depth 0.1 0.1 0.1 -Total Square (Post) (cm) 4.84 5.75 6.00 -Area of Debridement (cm) - Length 2.2 2.5 2.4 -Area of Debridement (cm) - Width 2.2 2.3 2.5 -Total Square (Area) (cm) 4.84 5.75 6.00 -Tunneling No No No -Undermining/Tunneling No No No -Circular Undermining No No No -Wound/Ulcer Outcome Not Healed Not Healed Not Healed -Ulcer Cleansing Rinsed/ Rinsed/ Rinsed/ Irrigated with Irrigated with Irrigated with Saline Saline Saline -Foul Odor after Cleansing No No No -Bioengineered Tissue No No No -Bleeding Controlled with Pressure Pressure Pressure -Treatment Response Procedure Procedure Procedure Tolerated Well Tolerated Well Tolerated Well -Offloading No No -Debridement - Subq, 1st 20sq cm Yes Yes No Pain Scale: 0-10 Numeric Is Patient Pain Free? Yes Yes Yes 12/17/24 10:14 Wound Center Nurse 2 #2 Left lateral Ankle -Time 10:14 -Correct Patient Yes -Correct Side, Site, Position Yes -Correct Procedure Yes -Procedure Performed Yes -Type of Procedure Debridement -Clinical Debridement Subcutaneous -Tissue Removed Subcutaneous -Post Debridement (cm) - Length 2.5 -Post Debridement (cm) - Width 1.4 -Post Debridement (cm) - Depth 0.1 -Total Square (Post) (cm) 3.50 -Area of Debridement (cm) - Length 2.5 -Area of Debridement (cm) - Width 1.4 -Total Square (Area) (cm) 3.50 -Tunneling No -Undermining/Tunneling No -Circular Undermining No -Wound/Ulcer Outcome Not Healed -Ulcer Cleansing Rinsed/ Irrigated with Saline -Foul Odor after Cleansing No -Bioengineered Tissue No -Bleeding Controlled with Pressure -Treatment Response Procedure Tolerated Well -Offloading -Debridement - Subq, 1st 20sq cm Yes #1 Right lateral Ankle -Time 10:14 -Correct Patient Yes -Correct Side, Site, Position Yes -Correct Procedure Yes -Procedure Performed Yes -Type of Procedure Debridement -Clinical Debridement Subcutaneous -Tissue Removed Subcutaneous -Post Debridement (cm) - Length 2.0 -Post Debridement (cm) - Width 2.0 -Post Debridement (cm) - Depth 0.1 -Total Square (Post) (cm) 4.00 -Area of Debridement (cm) - Length 2.0 -Area of Debridement (cm) - Width 2.0 -Total Square (Area) (cm) 4.00 -Tunneling No -Undermining/Tunneling No -Circular Undermining No -Wound/Ulcer Outcome Not Healed -Ulcer Cleansing Rinsed/ Irrigated with Saline -Foul Odor after Cleansing No -Bioengineered Tissue No -Bleeding Controlled with Pressure -Treatment Response Procedure Tolerated Well -Offloading -Debridement - Subq, 1st 20sq cm No Pain Scale: 0-10 Numeric Is Patient Pain Free? Yes WC - Nurse 3 - General Ulcer D/C NN Start: 11/26/24 09:43 Freq: Status: Active Protocol: Activity Type Activity Date Activity User E-sign Co-sign Detail Recorded Client Recorded Date Recorded By Document 11/26/24 10:25 RB [id number] 11/26/24 10:26 RB Document 12/03/24 11:11 DS [id number] 12/03/24 11:20 DS Document 12/10/24 10:37 JF [id number] 12/10/24 10:38 JF 11/26/24 12/03/24 12/10/24 10:25 11:11 10:37 Wound Care Center Nurse 3 #2 Left lateral Ankle -Ulcer Cleansing Rinsed/ Rinsed/ Irrigated with Irrigated with Saline Saline -Foul Odor after Cleansing No -Primary Dressing Applied Silicone Border C Hydrogel, Silicone Border Foam 4x4 Silicone Border Foam 4x4 Foam 4x4 -Other Dressing hydrogel/ dakins moistened gauze -Primary Dressing Covered/Secured with Dry Gauze Dry Gauze -Hydrogel 0 -Silicone Border Foam 4x4 1 1 1 -Silicone Border Foam 6x6 0 -Wound Comment(s) alyson marquesyl ordered - hydrogel at wound center til gets medication #1 Right lateral Ankle -Ulcer Cleansing Rinsed/ Not Cleansed Rinsed/ Irrigated with Irrigated with Saline Saline -Foul Odor after Cleansing No No -Primary Dressing Applied Silicone Border C Hydrogel, Silicone Border Foam 4x4 Silicone Border Foam 4x4 Foam 4x4 -Other Dressing hydrogel/ dakins moistened gauze -Hydrogel 0 -Silicone Border Foam 4x4 1 1 1 -Silicone Border Foam 6x6 0 -Wound Comment(s) alyson marquesyl ordered - hydrogel at wound center til gets medication Treatment Response Procedure Tolerated Well Pain Scale: 0-10 Numeric Is Patient Pain Free? Yes Yes Yes WC - Visit Discharge Discharge Condition Stable Stable Ambulatory Status Wheelchair Wheelchair Transportation [employer] Accompanied by skilled nursing attendent Medication Reconcilliation completed & No Yes provided to patient/care provider Clinical Summary of Care Provided Yes Yes Additional Wound Wound debrided: Right lateral ankle Type of Debridement: Excisional debridement Anesthesia Used: 5% Lidocaine Gel Depth: Down to and including healthy tissue and in the subcutaneous layer Percentage of wound debrided: 100 Instrument Used: 5mm curette Tissue Removed: Devitalized tissue Severity: Fat Layer Exposed Amount of bleeding with debridement: Mild Bleeding Controlled with: Pressure Patient tolerated procedure: Patient tolerated procedure well Assessment/Plan Assessment/Plan (1) Non-healing ulcer of left ankle with fat layer exposed: CODE(S): L97.322 - Non-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 Good improvement noted since his last visit. As above, started on antibiotics and switch to Dakin's dressings. No new concerns reported by caregiver who is present in the room. Area of erythema noted in the medial ankle on the right, caregiver believes that he is wearing his foam boots/offloading boots as recommended. Continue Dakin's daily or twice daily as needed. Cover with gauze and foam dressing. Foam dressing to right medial ankle as well. Continue antibiotics and complete 6 weeks of doxycycline for osteomyelitis. Continue single-layer Tubigrip for compression and protection. Not a good candidate for hyperbaric oxygen treatment due to significant cognitive impairment. Recommend optimal diabetes control, adequate protein intake and offloading. Offloading boots/foam boots have been recommended. Instructions sent back to his facility. Follow-up in a week or sooner if needed. This note was generated with [employer] dictation software. It may contain incorrect words, spelling, and punctuation that were not noted in checking the note before signing.
--- NOTE | 2024-12-17 15:24 | WC ---
PHOTO-LEFT LATERAL ANKLE 12/17/24
[2024-12-24 09:23] VITALS: BP 88/58; PULSE 94; RESP 20; TEMP 36.7
--- NOTE | 2024-12-24 09:56 | PCM.WC.PN ---
History of Present Illness Date of Service: 12/24/24 Chief Complaint: Bilateral Foot Ulcers. History of Wound: Mr. Howe is a 69 yo referred to the wound center by his vascular surgery PA due to non healing bilateral ankle/foot ulcer. He is a poor historian due to memory impairment/dementia. Currently resides in a nursing facility. Per vascular surgery documentation, right lower extremity ulcer is chronic and left is more recent but has been present for months. Had imaging done including a CTA with no significant focal stenosis and three-vessel runoff. Also recently had repeat lower extremity arterial studies with no significant concerns noted. No indication for vascular intervention per documentation. History of diabetes mellitus type 2, no recent labs Progress of Wound: No acute concerns reported at this time. Here with his caregiver who states that no concerns were brought to her attention. Area of erythema/skin irritation noted to the right lateral ankle. She states that she was not made aware of this. She relates that he is taking his antibiotics. Objective Data Objective Data Vital Signs: Vital Signs Temp Pulse Resp BP O2 Del Method 98.1 F 94 20 H 88/58 L Room Air 12/24/24 09:23 12/24/24 09:23 12/24/24 09:23 12/24/24 09:23 12/24/24 09:23 Oxygen Delivery Method Room Air Lab / Micro Data Micro: Microbiology 12/03/24 10:51 Wound - Ankle Gram Stain - Final 12/03/24 10:51 Wound - Ankle Wound Culture - Final Meth. resistant Staph. aureus 12/03/24 10:51 Wound - Ankle Anaerobic Culture - Final No anaerobic bacteria isolated. Charges/Coding Procedures Integumentary [id number]: [id number] Marilia subq tissue 20 sq cm/< Physical Exam Const alert and no apparent distress General Appearance: cooperative and comfortable HEENT normocephalic and head/scalp atraumatic Eyes EOMs intact bilaterally Neck full ROM General: normal visual inspection Resp normal respiratory effort Effort and Inspection: able to speak in complete sentences Skin General Skin Exam: petechiae Wounds: wounds noted size Size: See clinical note, bed granulating well, margins well approximated, no odor and surrounding erythema Neuro CN's II-XII intact bilaterally and moves all extremities Psych cooperative, affect normal and speech normal Debridement Note Debridement Note Wound debrided: Left Ankle,Lateral Type of Debridement: Excisional debridement Anesthesia Used: 5% Lidocaine Gel Depth: Down to and including healthy tissue and in the subcutaneous layer Percentage of wound debrided: 100 Instrument Used: 5mm curette Tissue Removed: Slough and devitalized tissue Severity: Fat Layer Exposed Amount of bleeding with debridement: Mild Bleeding Controlled with: Pressure Patient tolerated procedure: Patient tolerated procedure well Post-Debridement Measurements and Additional Note: Post-Debridement Measurements/Treatment - Nurse 1 - General Ulcer Assessment Start: 11/26/24 09:43 Freq: Status: Active Protocol: OFE Activity Type Activity Date Activity User E-sign Co-sign Detail Recorded Client Recorded Date Recorded By Document 11/26/24 09:44 RB [id number] 11/26/24 09:50 RB Document 12/03/24 09:59 KW [id number] 12/03/24 10:16 KW Document 12/10/24 09:37 KW [id number] 12/10/24 09:53 KW Document 12/17/24 09:44 KW [id number] 12/17/24 09:59 KW Document 12/24/24 09:23 DS [id number] 12/24/24 09:36 DS 11/26/24 12/03/24 12/10/24 09:44 09:59 09:37 - Today's Visit Information Type of service Follow-up Visit Follow-up Visit Follow-up Visit (Physician/ASSESSMENT COUNSELOR (Physician/ASSESSMENT COUNSELOR (Physician/ASSESSMENT COUNSELOR ) ) ) Arrival Mode Wheelchair Wheelchair Wheelchair Transfer Assistance Manual Manual Transfer Assist (Other) two person Patient Identification Verified (Name & Yes Yes Yes ) Patient Requires Transmission-Based No Precautions Safety Precautions Vital Signs Temperature (97.8 F-99.1 F) 98 F 96.9 F L 98.6 F Temperature Source Temporal Temporal Temporal Pulse Rate (60-100) 78 106 H 94 Pulse Location Monitor Monitor Monitor Respiratory Rate (12-18) 18 18 16 Respiratory rate source Observation Observation Observation Oxygen Delivery Method Room Air Room Air Blood Pressure (90/60-120/80) 138/74 H 112/68 113/66 Blood Pressure Mean (mm Hg) 95 82 81 Source Monitor Monitor Monitor Position Semi-Fowlers Sitting Sitting Blood Pressure Location Left Arm Right Arm Left Arm History Since Last Visit- (Skip if this is Patient's initial visit) Have you changed medications since your No No No last visit? Any new allergies or adverse reactions No No No Had a fall/change in ADL's that may No No No increase risk of falls Signs or symptoms of abuse and/or No No No neglect since last visit Have you been in the hospital since your No No No last visit? Has dressing in place as prescribed Yes Yes Yes Has compression in place as prescribed N/A N/A Yes Has offloadiing in place as prescribed N/A N/A Yes Experienced any changes in pain level or No No No management Left Footwear No Footwear No Footwear Right Footwear No Footwear No Footwear Pain Scale: 0-10 Numeric Is Patient Pain Free? Yes Yes Yes 12/17/24 12/24/24 09:44 09:23 WC - Today's Visit Information Type of service Follow-up Visit Initial Visit (Physician/ASSESSMENT COUNSELOR ) Arrival Mode Wheelchair Ambulatory, Walker, Wheelchair Transfer Assistance Transfer Assist (Other) Patient Identification Verified (Name & Yes Yes ) Patient Requires Transmission-Based No Precautions Safety Precautions Fall Prevention Vital Signs Temperature (97.8 F-99.1 F) 98.1 F Temperature Source Temporal Temporal Pulse Rate (60-100) 94 Pulse Location Monitor Monitor Respiratory Rate (12-18) 20 H Respiratory rate source Observation Observation Oxygen Delivery Method Room Air Blood Pressure (90/60-120/80) 88/58 L Blood Pressure Mean (mm Hg) 68 Source Monitor Monitor Position Sitting Sitting Blood Pressure Location Left Arm Left Arm History Since Last Visit- (Skip if this is Patient's initial visit) Have you changed medications since your No last visit? Any new allergies or adverse reactions No Had a fall/change in ADL's that may No increase risk of falls Signs or symptoms of abuse and/or No neglect since last visit Have you been in the hospital since your No last visit? Has dressing in place as prescribed Yes Has compression in place as prescribed No Has offloadiing in place as prescribed No Experienced any changes in pain level or No management Left Footwear Regular Shoe Right Footwear Regular Shoe Pain Scale: 0-10 Numeric Is Patient Pain Free? Yes Yes - Nurse 1 - General Ulcer Measurement Start: 11/26/24 09:43 Freq: Status: Active Protocol: Activity Type Activity Date Activity User E-sign Co-sign Detail Recorded Client Recorded Date Recorded By Document 11/26/24 09:44 RB [id number] 11/26/24 09:50 RB Document 12/03/24 09:59 KW [id number] 12/03/24 10:16 KW Document 12/10/24 09:37 KW [id number] 12/10/24 09:53 KW Document 12/17/24 09:44 KW [id number] 12/17/24 09:59 KW Document 12/24/24 09:23 DS [id number] 12/24/24 09:36 DS 11/26/24 12/03/24 12/10/24 09:44 09:59 09:37 Wound Center Nurse 1 #2 Left lateral Ankle -Combined with other wound No -Current Size (cm) - Length 3 3 0.1 -Current Size (cm) - Width 2.2 3 0.1 -Current Size (cm) - Depth 0.2 0.1 0.1 -Total Square Cm 6.6 9 0.01 -Date of Last Picture (Recall this 12/03/24 12/10/24 field) -Photo Taken Yes -Tunneling No -Undermining/Tunneling No -Circular Undermining No -Exudate Amt Medium Large Large -Exudate Type Serosanguineous Serosanguineous Serosanguineous -Wound Margin Distinct, Thickened Distinct, Outline Outline Attached Attached -Granulation Amt Medium (34-66%) Large (67-100%) Large (67-100%) -Granulation Quality [place] Red Red -Slough/Fibrin Yes -Necrosis Amt Medium (34-66%) -Necrotic Tissue Type Adherent Slough -Structure Exposed N/A -Texture ([place]-wound Skin Appearance) Assessed, Assessed, Assessed, Scarring Localized Edema Localized Edema -Moisture ([place]-wound Skin Appearance) Assessed Assessed Assessed -Color ([place]-wound Skin Appearance) Assessed Assessed, Assessed, Erythema Erythema -Temperature ([place]-wound Skin No Abnormality No Abnormality Appearance) (Pt Warm) (Pt Warm) -Tenderness on Palpation ([place]-wound No No Skin Appearance) -Ulcer Cleansing Wound Cleanser Soap and Water Soap and Water -Foul Odor after Cleansing No No No -Anesthetic Used 5% Lidocaine 5% Lidocaine 5% Lidocaine Gel Gel Gel -Wound Comment(s) no meaqsurement in nurse 1 #1 Right lateral Ankle -Combined with other wound No -Current Size (cm) - Length 2 2 0.1 -Current Size (cm) - Width 2 2.5 0.1 -Current Size (cm) - Depth 0.1 0.1 0.1 -Total Square Cm 4 5.0 0.01 -Date of Last Picture (Recall this 12/03/24 12/10/24 field) -Photo Taken Yes -Tunneling No -Undermining/Tunneling No -Circular Undermining No -Exudate Amt Medium Medium Large -Exudate Type Serosanguineous Serosanguineous Serosanguineous -Wound Margin Distinct, Thickened Distinct, Outline Outline Attached Attached -Granulation Amt Medium (34-66%) Medium (34-66%) Large (67-100%) -Granulation Quality [place] Red Red -Slough/Fibrin Yes -Necrosis Amt Medium (34-66%) Medium (34-66%) -Necrotic Tissue Type Adherent Slough Adherent Slough -Structure Exposed N/A -Texture ([place]-wound Skin Appearance) Assessed, Assessed, Assessed, Scarring Localized Edema Localized Edema -Moisture ([place]-wound Skin Appearance) Assessed Assessed Assessed -Color ([place]-wound Skin Appearance) Assessed Assessed, Assessed, Erythema Erythema -Temperature ([place]-wound Skin No Abnormality No Abnormality No Abnormality Appearance) (Pt Warm) (Pt Warm) (Pt Warm) -Tenderness on Palpation ([place]-wound No No Skin Appearance) -Ulcer Cleansing Wound Cleanser Soap and Water Soap and Water -Foul Odor after Cleansing No No No -Anesthetic Used 5% Lidocaine 5% Lidocaine 5% Lidocaine Gel Gel Gel -Wound Comment(s) no measurement in nurse 1 12/17/24 12/24/24 09:44 09:23 Wound Center Nurse 1 #2 Left lateral Ankle -Combined with other wound -Current Size (cm) - Length 2.4 2.3 -Current Size (cm) - Width 1.5 2 -Current Size (cm) - Depth 0.1 0.4 -Total Square Cm 3.60 4.6 -Date of Last Picture (Recall this 12/17/24 12/24/24 field) -Photo Taken -Tunneling -Undermining/Tunneling -Circular Undermining -Exudate Amt Medium Large -Exudate Type Serosanguineous Serosanguineous -Wound Margin Distinct, Distinct, Outline Outline Attached Attached -Granulation Amt Large (67-100%) Large (67-100%) -Granulation Quality Red Red -Slough/Fibrin -Necrosis Amt -Necrotic Tissue Type -Structure Exposed -Texture ([place]-wound Skin Appearance) Assessed Assessed -Moisture ([place]-wound Skin Appearance) Assessed Assessed, Maceration -Color ([place]-wound Skin Appearance) Assessed, Assessed, Ecchymosis Ecchymosis, Erythema -Temperature ([place]-wound Skin No Abnormality No Abnormality Appearance) (Pt Warm) (Pt Warm) -Tenderness on Palpation ([place]-wound No No Skin Appearance) -Ulcer Cleansing Soap and Water Soap and Water -Foul Odor after Cleansing No No -Anesthetic Used 5% Lidocaine 5% Lidocaine Gel Gel -Wound Comment(s) #1 Right lateral Ankle -Combined with other wound -Current Size (cm) - Length 2 1.9 -Current Size (cm) - Width 2 1.8 -Current Size (cm) - Depth 0.1 0.5 -Total Square Cm 4 3.42 -Date of Last Picture (Recall this 12/17/24 12/24/24 field) -Photo Taken -Tunneling -Undermining/Tunneling -Circular Undermining -Exudate Amt Medium Large -Exudate Type Serosanguineous Serosanguineous -Wound Margin Distinct, Distinct, Outline Outline Attached Attached -Granulation Amt Large (67-100%) Large (67-100%) -Granulation Quality Red Red -Slough/Fibrin -Necrosis Amt -Necrotic Tissue Type -Structure Exposed -Texture ([place]-wound Skin Appearance) Assessed Assessed -Moisture ([place]-wound Skin Appearance) Assessed Assessed, Maceration -Color ([place]-wound Skin Appearance) Assessed, Assessed, Ecchymosis Erythema -Temperature ([place]-wound Skin No Abnormality No Abnormality Appearance) (Pt Warm) (Pt Warm) -Tenderness on Palpation ([place]-wound No No Skin Appearance) -Ulcer Cleansing Soap and Water Soap and Water -Foul Odor after Cleansing No No -Anesthetic Used 5% Lidocaine 5% Lidocaine Gel Gel -Wound Comment(s) WC - Nurse 2 - General Ulcer CM Notes Start: 11/26/24 09:43 Freq: Status: Active Protocol: Activity Type Activity Date Activity User E-sign Co-sign Detail Recorded Client Recorded Date Recorded By Document 11/26/24 09:58 [id number] 11/26/24 10:08 Document 12/03/24 10:47 [id number] 12/03/24 10:58 Document 12/10/24 10:18 DS [id number] 12/10/24 10:19 DS Document 12/17/24 10:14 DS [id number] 12/17/24 10:15 DS Document 12/24/24 09:43 [id number] 12/24/24 09:50 11/26/24 12/03/24 12/10/24 09:58 10:47 10:18 Wound Center Nurse 2 #2 Left lateral Ankle -Time 09:59 10:53 10:18 -Correct Patient Yes Yes Yes -Correct Side, Site, Position Yes Yes Yes -Correct Procedure Yes Yes Yes -Procedure Performed Yes Yes Yes -Type of Procedure Debridement Debridement Debridement -Clinical Debridement Subcutaneous Subcutaneous Subcutaneous -Tissue Removed Subcutaneous Subcutaneous Subcutaneous -Post Debridement (cm) - Length 2.8 2.6 2.5 -Post Debridement (cm) - Width 2.4 2.2 2.3 -Post Debridement (cm) - Depth 0.1 0.1 0.1 -Total Square (Post) (cm) 6.72 5.72 5.75 -Area of Debridement (cm) - Length 2.8 2.6 2.5 -Area of Debridement (cm) - Width 2.4 2.2 2.3 -Total Square (Area) (cm) 6.72 5.72 5.75 -Tunneling No No No -Undermining/Tunneling No No No -Circular Undermining No No No -Wound/Ulcer Outcome Not Healed Not Healed Not Healed -Ulcer Cleansing Rinsed/ Rinsed/ Rinsed/ Irrigated with Irrigated with Irrigated with Saline Saline Saline -Foul Odor after Cleansing No No No -Bioengineered Tissue No No No -Bleeding Controlled with Pressure Pressure Pressure -Treatment Response Procedure Procedure Procedure Tolerated Well Tolerated Well Tolerated Well -Offloading No No -Debridement - Subq, 1st 20sq cm No No Yes #1 Right lateral Ankle -Time 09:59 10:54 10:18 -Correct Patient Yes Yes Yes -Correct Side, Site, Position Yes Yes Yes -Correct Procedure Yes Yes Yes -Procedure Performed Yes Yes Yes -Type of Procedure Debridement Debridement Debridement -Clinical Debridement Subcutaneous Subcutaneous Subcutaneous -Tissue Removed Subcutaneous Subcutaneous Subcutaneous -Post Debridement (cm) - Length 2.2 2.5 2.4 -Post Debridement (cm) - Width 2.2 2.3 2.5 -Post Debridement (cm) - Depth 0.1 0.1 0.1 -Total Square (Post) (cm) 4.84 5.75 6.00 -Area of Debridement (cm) - Length 2.2 2.5 2.4 -Area of Debridement (cm) - Width 2.2 2.3 2.5 -Total Square (Area) (cm) 4.84 5.75 6.00 -Tunneling No No No -Undermining/Tunneling No No No -Circular Undermining No No No -Wound/Ulcer Outcome Not Healed Not Healed Not Healed -Ulcer Cleansing Rinsed/ Rinsed/ Rinsed/ Irrigated with Irrigated with Irrigated with Saline Saline Saline -Foul Odor after Cleansing No No No -Bioengineered Tissue No No No -Bleeding Controlled with Pressure Pressure Pressure -Treatment Response Procedure Procedure Procedure Tolerated Well Tolerated Well Tolerated Well -Offloading No No -Debridement - Subq, 1st 20sq cm Yes Yes No Pain Scale: 0-10 Numeric Is Patient Pain Free? Yes Yes Yes 12/17/24 12/24/24 10:14 09:43 Wound Center Nurse 2 #2 Left lateral Ankle -Time 10:14 09:44 -Correct Patient Yes Yes -Correct Side, Site, Position Yes Yes -Correct Procedure Yes Yes -Procedure Performed Yes Yes -Type of Procedure Debridement Debridement -Clinical Debridement Subcutaneous Subcutaneous -Tissue Removed Subcutaneous Subcutaneous -Post Debridement (cm) - Length 2.5 2.5 -Post Debridement (cm) - Width 1.4 1.8 -Post Debridement (cm) - Depth 0.1 0.1 -Total Square (Post) (cm) 3.50 4.50 -Area of Debridement (cm) - Length 2.5 2.5 -Area of Debridement (cm) - Width 1.4 1.8 -Total Square (Area) (cm) 3.50 4.50 -Tunneling No No -Undermining/Tunneling No No -Circular Undermining No No -Wound/Ulcer Outcome Not Healed Not Healed -Ulcer Cleansing Rinsed/ Rinsed/ Irrigated with Irrigated with Saline Saline -Foul Odor after Cleansing No No -Bioengineered Tissue No No -Bleeding Controlled with Pressure Pressure -Treatment Response Procedure Procedure Tolerated Well Tolerated Well -Offloading No -Debridement - Subq, 1st 20sq cm Yes No #1 Right lateral Ankle -Time 10:14 09:45 -Correct Patient Yes Yes -Correct Side, Site, Position Yes Yes -Correct Procedure Yes Yes -Procedure Performed Yes Yes -Type of Procedure Debridement Debridement -Clinical Debridement Subcutaneous Subcutaneous -Tissue Removed Subcutaneous Subcutaneous -Post Debridement (cm) - Length 2.0 1.5 -Post Debridement (cm) - Width 2.0 1.8 -Post Debridement (cm) - Depth 0.1 0.1 -Total Square (Post) (cm) 4.00 2.70 -Area of Debridement (cm) - Length 2.0 0.5 -Area of Debridement (cm) - Width 2.0 1.8 -Total Square (Area) (cm) 4.00 0.90 -Tunneling No No -Undermining/Tunneling No No -Circular Undermining No No -Wound/Ulcer Outcome Not Healed Not Healed -Ulcer Cleansing Rinsed/ Rinsed/ Irrigated with Irrigated with Saline Saline -Foul Odor after Cleansing No No -Bioengineered Tissue No No -Bleeding Controlled with Pressure Pressure -Treatment Response Procedure Procedure Tolerated Well Tolerated Well -Offloading No -Debridement - Subq, 1st 20sq cm No Yes Pain Scale: 0-10 Numeric Is Patient Pain Free? Yes Yes - Nurse 3 - General Ulcer D/C NN Start: 11/26/24 09:43 Freq: Status: Active Protocol: Activity Type Activity Date Activity User E-sign Co-sign Detail Recorded Client Recorded Date Recorded By Document 11/26/24 10:25 RB [id number] 11/26/24 10:26 RB Document 12/03/24 11:11 DS [id number] 12/03/24 11:20 DS Document 12/10/24 10:37 [id number] 12/10/24 10:38 Document 12/17/24 15:35 KW [id number] 12/17/24 15:36 KW 11/26/24 12/03/24 12/10/24 10:25 11:11 10:37 Wound Care Center Nurse 3 #2 Left lateral Ankle -Ulcer Cleansing Rinsed/ Rinsed/ Irrigated with Irrigated with Saline Saline -Foul Odor after Cleansing No -Primary Dressing Applied Silicone Border C Hydrogel, Silicone Border Foam 4x4 Silicone Border Foam 4x4 Foam 4x4 -Other Dressing hydrogel/ dakins moistened gauze -Primary Dressing Covered/Secured with Dry Gauze Dry Gauze -Hydrogel 0 -Silicone Border Foam 4x4 1 1 1 -Silicone Border Foam 6x6 0 -Wound Comment(s) alyson tejeda ordered - hydrogel at wound center til gets medication #1 Right lateral Ankle -Ulcer Cleansing Rinsed/ Not Cleansed Rinsed/ Irrigated with Irrigated with Saline Saline -Foul Odor after Cleansing No No -Primary Dressing Applied Silicone Border C Hydrogel, Silicone Border Foam 4x4 Silicone Border Foam 4x4 Foam 4x4 -Other Dressing hydrogel/ dakins moistened gauze -Hydrogel 0 -Silicone Border Foam 4x4 1 1 1 -Silicone Border Foam 6x6 0 -Wound Comment(s) alyson tejeda ordered - hydrogel at wound center til gets medication Treatment Response Procedure Tolerated Well Pain Scale: 0-10 Numeric Is Patient Pain Free? Yes Yes Yes WC - Visit Discharge Discharge Condition Stable Stable Ambulatory Status Wheelchair Wheelchair Transportation fernanda Shultz Accompanied by jail attendent Medication Reconcilliation completed & No Yes provided to patient/care provider Clinical Summary of Care Provided Yes Yes 12/17/24 15:35 Wound Care Center Nurse 3 #2 Left lateral Ankle -Ulcer Cleansing -Foul Odor after Cleansing -Primary Dressing Applied Silicone Border Foam 4x4 -Other Dressing dakins fluffed gauze -Primary Dressing Covered/Secured with -Hydrogel -Silicone Border Foam 4x4 1 -Silicone Border Foam 6x6 -Wound Comment(s) #1 Right lateral Ankle -Ulcer Cleansing -Foul Odor after Cleansing -Primary Dressing Applied Silicone Border Foam 4x4 -Other Dressing dakins fluffed gauze -Hydrogel -Silicone Border Foam 4x4 1 -Silicone Border Foam 6x6 -Wound Comment(s) Treatment Response Pain Scale: 0-10 Numeric Is Patient Pain Free? Yes WC - Visit Discharge Discharge Condition Stable Ambulatory Status Wheelchair Transportation Accompanied by Medication Reconcilliation completed & No provided to patient/care provider Clinical Summary of Care Provided Yes Additional Wound Wound debrided: Right Ankle, Lateral Type of Debridement: Excisional debridement Anesthesia Used: 5% Lidocaine Gel Depth: Down to and including healthy tissue and in the subcutaneous layer Percentage of wound debrided: 100 Instrument Used: 5mm curette Tissue Removed: Slough and devitalized tissue Severity: Fat Layer Exposed Amount of bleeding with debridement: Mild Bleeding Controlled with: Pressure Assessment/Plan Assessment/Plan (1) Non-healing ulcer of left ankle with fat layer exposed: CODE(S): L97.322 - Non-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 No acute concerns reported at this time. Concern for dermatitis on the right. For now, continue Dakin's daily or twice daily as needed. Cover with gauze and foam dressing. Caregiver advised that foam dressing should cover larger area than area of irritation. Foam dressing to right medial ankle as well. Consider switching to Aquacel next week if no significant improvement/concern for maceration. Continue antibiotics and complete 6 weeks of doxycycline for osteomyelitis. Continue single-layer Tubigrip for compression and protection. Not a good candidate for hyperbaric oxygen treatment due to significant cognitive impairment. Recommend optimal diabetes control, adequate protein intake and offloading. Offloading boots/foam boots have been recommended. Instructions sent back to his facility. Follow-up in a week or sooner if needed. This note was generated with [employer] dictation software. It may contain incorrect words, spelling, and punctuation that were not noted in checking the note before signing.
--- NOTE | 2024-12-25 09:24 | WC ---
PHOTO-LEFT LATERAL ANKLE 12/24/24
--- NOTE | 2024-12-25 09:26 | WC ---
PHOTO-RIGHT LATERAL ANKLE 12/24/24
== END 2024-12-24 23:59 | disposition home or self-care (01) ==
LOC: WC 09:30
PROVIDERS: PCP Internal Medicine; Referring Provider Physician Assistant; Visit Provider Internal Medicine
DX: E11.621 Type 2 diabetes mellitus with foot ulcer (principal); L97.312 Non-pressure chronic ulcer of right ankle with fat layer exposed; L97.322 Non-pressure chronic ulcer of left ankle with fat layer exposed; F03.90 Unspecified dementia, unspecified severity, without behavioral disturbance, psychotic disturbance, mood disturbance, and anxiety; R53.81 Other malaise; R41.3 Other amnesia
CPT/HCPCS: 11042; 87070; 87075; 87077; 87186; 87205

== ENCOUNTER 2025-01-21 09:30 | Outpatient (RCR) | payer MEDICARE, MEDICAID, SELFPAY ==
[2024-12-31 09:28] VITALS: BP 94/42; PULSE 68; RESP 16; TEMP 36.4
--- NOTE | 2024-12-31 10:03 | PCM.WC.PN ---
History of Present Illness Date of Service: 12/31/24 Chief Complaint: Bilateral Foot Ulcers. History of Wound: Mr. Howe is a 69 yo referred to the wound center by his vascular surgery PA due to non healing bilateral ankle/foot ulcer. He is a poor historian due to memory impairment/dementia. Currently resides in a nursing facility. Per vascular surgery documentation, right lower extremity ulcer is chronic and left is more recent but has been present for months. Had imaging done including a CTA with no significant focal stenosis and three-vessel runoff. Also recently had repeat lower extremity arterial studies with no significant concerns noted. No indication for vascular intervention per documentation. History of diabetes mellitus type 2, no recent labs Progress of Wound: No acute concerns reported at this time. Here with a caregiver who states that she is not aware of any concerns and believes that dressing changes are being done as recommended. Objective Data Objective Data Vital Signs: Vital Signs Temp Pulse Resp BP 97.6 F L 68 16 94/42 L 12/31/24 09:28 12/31/24 09:28 12/31/24 09:28 12/31/24 09:28 Charges/Coding Procedures Integumentary 111xxx-113xx: 17010 Marilia subq tissue 20 sq cm/< Physical Exam Const alert and no apparent distress General Appearance: cooperative and comfortable HEENT normocephalic and head/scalp atraumatic Eyes EOMs intact bilaterally Neck full ROM General: normal visual inspection Resp normal respiratory effort Effort and Inspection: able to speak in complete sentences Skin Wounds: wounds noted size Size: See clinical note, bed granulating well, margins well approximated, no odor and surrounding erythema Neuro CN's II-XII intact bilaterally and moves all extremities Psych cooperative, affect normal and speech normal Debridement Note Debridement Note Wound debrided: Left lower extremity/lateral ankle Type of Debridement: Excisional debridement Anesthesia Used: 5% Lidocaine Gel Depth: Down to and including healthy tissue and in the subcutaneous layer Percentage of wound debrided: 100 Instrument Used: 5mm curette Tissue Removed: Slough and devitalized tissue Severity: Fat Layer Exposed Amount of bleeding with debridement: Mild Bleeding Controlled with: Pressure Patient tolerated procedure: Patient tolerated procedure well Post-Debridement Measurements and Additional Note: Post-Debridement Measurements/Treatment JOIE - Nurse 1 - General Ulcer Assessment Start: 12/31/24 09:28 Freq: Status: Active Protocol: WC.LOWEXT Activity Type Activity Date Activity User E-sign Co-sign Detail Recorded Client Recorded Date Recorded By Document 12/31/24 09:28 [id number] 12/31/24 09:42 12/31/24 09:28 - Today's Visit Information Type of service Follow-up Visit (Physician/TRAIL CONSTRUCTION WORKER ) Arrival Mode Wheelchair Transfer Assistance Manual Transfer Assist (Other) 2 Patient Identification Verified (Name & Yes ) Safety Precautions Fall Prevention Vital Signs Temperature (97.8 F-99.1 F) 97.6 F L Temperature Source Temporal Pulse Rate (60-100) 68 Pulse Location Monitor Respiratory Rate (12-18) 16 Respiratory rate source Observation Blood Pressure (90/60-120/80) 94/42 L Blood Pressure Mean (mm Hg) 59 Source Monitor Position Sitting Blood Pressure Location Right Arm History Since Last Visit- (Skip if this is Patient's initial visit) Have you changed medications since your No last visit? Any new allergies or adverse reactions No Had a fall/change in ADL's that may No increase risk of falls Signs or symptoms of abuse and/or No neglect since last visit Have you been in the hospital since your No last visit? Has dressing in place as prescribed Yes Has compression in place as prescribed N/A Has offloadiing in place as prescribed No Pain Scale: 0-10 Numeric Is Patient Pain Free? Yes - Nurse 1 - General Ulcer Measurement Start: 12/31/24 09:28 Freq: Status: Active Protocol: Activity Type Activity Date Activity User E-sign Co-sign Detail Recorded Client Recorded Date Recorded By Document 12/31/24 09:28 [id number] 12/31/24 09:42 12/31/24 09:28 Wound Center Nurse 1 #2 Left lateral Ankle -Current Size (cm) - Length 2.4 -Current Size (cm) - Width 1.3 -Current Size (cm) - Depth 0.2 -Total Square Cm 3.12 -Date of Last Picture (Recall this 12/31/24 field) -Epithelialization None Present -Exudate Amt Small -Exudate Type Serosanguineous -Wound Margin Flat & Intact -Granulation Amt Large (67-100%) -Granulation Quality Red -Slough/Fibrin Yes -Necrosis Amt Small (1-33%) -Necrotic Tissue Type Adherent Slough -Structure Exposed N/A -Texture ([place]-wound Skin Appearance) No Abnormality -Moisture ([place]-wound Skin Appearance) No Abnormality -Color ([place]-wound Skin Appearance) No Abnormality -Temperature ([place]-wound Skin No Abnormality Appearance) (Pt Warm) -Ulcer Cleansing Soap and Water -Foul Odor after Cleansing No -Anesthetic Used 5% Lidocaine Gel #1 Right lateral Ankle -Current Size (cm) - Length 2 -Current Size (cm) - Width 1.7 -Current Size (cm) - Depth 0.1 -Total Square Cm 3.4 -Date of Last Picture (Recall this 12/31/24 field) -Photo Taken Yes -Exudate Amt Small -Exudate Type Serosanguineous -Wound Margin Flat & Intact -Granulation Amt Large (67-100%) -Granulation Quality Red -Slough/Fibrin No -Structure Exposed N/A -Texture ([place]-wound Skin Appearance) No Abnormality -Moisture ([place]-wound Skin Appearance) No Abnormality -Color ([place]-wound Skin Appearance) No Abnormality -Temperature ([place]-wound Skin No Abnormality Appearance) (Pt Warm) -Tenderness on Palpation ([place]-wound Yes Skin Appearance) -Ulcer Cleansing Soap and Water -Foul Odor after Cleansing No -Anesthetic Used 5% Lidocaine Gel WC - Nurse 2 - General Ulcer CM Notes Start: 12/31/24 09:28 Freq: Status: Active Protocol: Activity Type Activity Date Activity User E-sign Co-sign Detail Recorded Client Recorded Date Recorded By Document 12/31/24 09:50 GM [id number] 12/31/24 09:57 GM 12/31/24 09:50 Wound Center Nurse 2 #2 Left lateral Ankle -Time 09:51 -Correct Patient Yes -Correct Side, Site, Position Yes -Correct Procedure Yes -Procedure Performed Yes -Type of Procedure Debridement -Clinical Debridement Subcutaneous -Tissue Removed Subcutaneous -Post Debridement (cm) - Length 2.3 -Post Debridement (cm) - Width 1.5 -Post Debridement (cm) - Depth 0.1 -Total Square (Post) (cm) 3.45 -Area of Debridement (cm) - Length 2.3 -Area of Debridement (cm) - Width 1.5 -Total Square (Area) (cm) 3.45 -Tunneling No -Undermining/Tunneling No -Circular Undermining No -Wound/Ulcer Outcome Not Healed -Ulcer Cleansing Rinsed/ Irrigated with Saline -Foul Odor after Cleansing No -Bioengineered Tissue No -Bleeding Controlled with Pressure -Treatment Response Procedure Tolerated Well -Offloading No -Debridement - Subq, 1st 20sq cm No #1 Right lateral Ankle -Time 09:52 -Correct Patient Yes -Correct Side, Site, Position Yes -Correct Procedure Yes -Procedure Performed Yes -Type of Procedure Debridement -Clinical Debridement Subcutaneous -Tissue Removed Subcutaneous -Post Debridement (cm) - Length 1.6 -Post Debridement (cm) - Width 1.5 -Post Debridement (cm) - Depth 0.1 -Total Square (Post) (cm) 2.40 -Area of Debridement (cm) - Length 1.6 -Area of Debridement (cm) - Width 1.5 -Total Square (Area) (cm) 2.40 -Tunneling No -Undermining/Tunneling No -Circular Undermining No -Wound/Ulcer Outcome Not Healed -Ulcer Cleansing Rinsed/ Irrigated with Saline -Foul Odor after Cleansing No -Bioengineered Tissue No -Bleeding Controlled with Pressure -Treatment Response Procedure Tolerated Well -Offloading No -Debridement - Subq, 1st 20sq cm Yes Pain Scale: 0-10 Numeric Is Patient Pain Free? Yes Additional Wound Wound debrided: Right lower extremity/lateral ankle Type of Debridement: Excisional debridement Anesthesia Used: 5% Lidocaine Gel Depth: Down to and including healthy tissue and in the subcutaneous layer Percentage of wound debrided: 100 Instrument Used: 5mm curette Tissue Removed: Slough and devitalized tissue Severity: Fat Layer Exposed Amount of bleeding with debridement: Mild Bleeding Controlled with: Pressure Patient tolerated procedure: Patient tolerated procedure well Assessment/Plan Assessment/Plan (1) Non-healing ulcer of left ankle with fat layer exposed: CODE(S): L97.322 - Non-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 As above, no acute concerns reported. Both with some improvement. Continue Dakin's daily or twice daily as needed. Cover with gauze and foam dressing. Foam dressing to right medial ankle as well. Continue antibiotics and complete 6 weeks of doxycycline for osteomyelitis. At this time, no indication for bone biopsy as there appears to be improvement. Will continue to monitor this closely. Continue single-layer Tubigrip for compression and protection. Not a good candidate for hyperbaric oxygen treatment due to significant cognitive impairment. Recommend optimal diabetes control, adequate protein intake and offloading. Offloading boots/foam boots have been recommended. Caregiver states that she believes that this is being done but cannot confirm. Instructions sent back to his facility. Follow-up in a week or sooner if needed. This note was generated with [employer] dictation software. It may contain incorrect words, spelling, and punctuation that were not noted in checking the note before signing.
--- NOTE | 2024-12-31 13:20 | WC ---
PHOTO-RIGHT LATERAL ANKLE 12/31/24
--- NOTE | 2024-12-31 13:21 | WC ---
PHOTO-RIGHT LAT ANKLE 12/31/24
--- NOTE | 2024-12-31 13:22 | WC ---
PHOTO-LEFT INF ANKLE 12/31/24
[2025-01-14 10:18] VITALS: BP 102/57; PULSE 85; RESP 20; TEMP 36.4
--- NOTE | 2025-01-14 12:46 | PCM.WC.PN ---
History of Present Illness Date of Service: 01/14/25 Chief Complaint: Bilateral Foot Ulcers. History of Wound: Mr. Howe is a 69 yo referred to the wound center by his vascular surgery PA due to non healing bilateral ankle/foot ulcer. He is a poor historian due to memory impairment/dementia. Currently resides in a nursing facility. Per vascular surgery documentation, right lower extremity ulcer is chronic and left is more recent but has been present for months. Had imaging done including a CTA with no significant focal stenosis and three-vessel runoff. Also recently had repeat lower extremity arterial studies with no significant concerns noted. No indication for vascular intervention per documentation. History of diabetes mellitus type 2, no recent labs Progress of Wound: Missed his appointment last week due to transportation issues. Here with a caregiver who does not report any acute/known concerns. Concern for increased periwound maceration and breakdown. She believes that he still taking his antibiotics/doxycycline. Objective Data Objective Data Vital Signs: Vital Signs Temp Pulse Resp BP O2 Del Method 97.5 F L 85 20 H 102/57 L Room Air 01/14/25 10:18 01/14/25 10:18 01/14/25 10:18 01/14/25 10:18 01/14/25 10:18 Oxygen Delivery Method Room Air Charges/Coding Procedures Integumentary 111xxx-113xx: [id number] Marilia subq tissue 20 sq cm/< Physical Exam Const alert and no apparent distress General Appearance: cooperative and comfortable HEENT normocephalic and head/scalp atraumatic Eyes EOMs intact bilaterally Neck full ROM General: normal visual inspection Resp normal respiratory effort Effort and Inspection: able to speak in complete sentences Skin Wounds: wounds noted size Size: See clinical note, bed granulating well and necrotic, margins macerated and well approximated, no odor and surrounding erythema Neuro CN's II-XII intact bilaterally and moves all extremities Psych cooperative, affect normal and speech normal Debridement Note Debridement Note Wound debrided: Left lateral ankle Type of Debridement: Excisional debridement Anesthesia Used: 5% Lidocaine Gel Depth: Down to and including healthy tissue and in the subcutaneous layer Percentage of wound debrided: 100 Instrument Used: 5mm curette Tissue Removed: Slough on the vitalized tissue Severity: Fat Layer Exposed Amount of bleeding with debridement: Mild Bleeding Controlled with: Pressure Patient tolerated procedure: Patient tolerated procedure well Post-Debridement Measurements and Additional Note: Post-Debridement Measurements/Treatment WC - Nurse 1 - General Ulcer Assessment Start: 12/31/24 09:28 Freq: Status: Active Protocol: OFE Activity Type Activity Date Activity User E-sign Co-sign Detail Recorded Client Recorded Date Recorded By Document 12/31/24 09:28 CP [id number] 12/31/24 09:42 CP Document 01/14/25 10:18 DS [id number] 01/14/25 10:30 DS Edit Result 01/14/25 10:18 DS (1) [id number] 01/14/25 10:31 DS (1) Blood Pressure (90/60-120/80) 86/57 L => 102/57 L Blood Pressure Mean (mm Hg) 66 => 72 12/31/24 01/14/25 09:28 10:18 WC - Today's Visit Information Type of service Follow-up Visit Follow-up Visit (Physician/SOLAR INSTALLATION HELPER (Physician/SOLAR INSTALLATION HELPER ) ) Arrival Mode Wheelchair Wheelchair Transfer Assistance Manual Transfer Assist (Other) 2 Patient Identification Verified (Name & Yes Yes ) Safety Precautions Fall Prevention Fall Prevention Vital Signs Temperature (97.8 F-99.1 F) 97.6 F L 97.5 F L Temperature Source Temporal Temporal Pulse Rate (60-100) 68 85 Pulse Location Monitor Monitor Respiratory Rate (12-18) 16 20 H Respiratory rate source Observation Observation Oxygen Delivery Method Room Air Blood Pressure (90/60-120/80) 94/42 L 102/57 L Blood Pressure Mean (mm Hg) 59 72 Source Monitor Monitor Position Sitting Semi-Fowlers Blood Pressure Location Right Arm Right Arm History Since Last Visit- (Skip if this is Patient's initial visit) Have you changed medications since your No No last visit? Any new allergies or adverse reactions No No Had a fall/change in ADL's that may No No increase risk of falls Signs or symptoms of abuse and/or No No neglect since last visit Have you been in the hospital since your No No last visit? Has dressing in place as prescribed Yes Yes Has compression in place as prescribed N/A N/A Has offloadiing in place as prescribed No N/A Experienced any changes in pain level or No management Left Footwear Regular Shoe Right Footwear Regular Shoe Pain Scale: 0-10 Numeric Is Patient Pain Free? Yes Yes JOIE - Nurse 1 - General Ulcer Measurement Start: 12/31/24 09:28 Freq: Status: Active Protocol: Activity Type Activity Date Activity User E-sign Co-sign Detail Recorded Client Recorded Date Recorded By Document 12/31/24 09:28 CP [id number] 12/31/24 09:42 CP Document 01/14/25 10:18 DS [id number] 01/14/25 10:30 DS 12/31/24 01/14/25 09:28 10:18 Wound Center Nurse 1 #2 Left lateral Ankle -Current Size (cm) - Length 2.4 2.5 -Current Size (cm) - Width 1.3 1.5 -Current Size (cm) - Depth 0.2 0.2 -Total Square Cm 3.12 3.75 -Date of Last Picture (Recall this 12/31/24 01/14/25 field) -Photo Taken Yes -Epithelialization None Present -Tunneling No -Undermining/Tunneling No -Circular Undermining No -Exudate Amt Small Medium -Exudate Type Serosanguineous Serosanguineous -Wound Margin Flat & Intact Distinct, Outline Attached -Granulation Amt Large (67-100%) Small (1-33%) -Granulation Quality Red Red -Slough/Fibrin Yes -Necrosis Amt Small (1-33%) Large (67-100%) -Necrotic Tissue Type Adherent Slough Adherent Slough -Structure Exposed N/A -Texture ([place]-wound Skin Appearance) No Abnormality Assessed -Moisture ([place]-wound Skin Appearance) No Abnormality Assessed -Color ([place]-wound Skin Appearance) No Abnormality Assessed, Ecchymosis -Temperature ([place]-wound Skin No Abnormality No Abnormality Appearance) (Pt Warm) (Pt Warm) -Tenderness on Palpation ([place]-wound No Skin Appearance) -Ulcer Cleansing Soap and Water Soap and Water -Foul Odor after Cleansing No -Anesthetic Used 5% Lidocaine 5% Lidocaine Gel Gel #1 Right lateral Ankle -Current Size (cm) - Length 2 2.5 -Current Size (cm) - Width 1.7 2.4 -Current Size (cm) - Depth 0.1 0.3 -Total Square Cm 3.4 6.00 -Date of Last Picture (Recall this 12/31/24 01/14/25 field) -Photo Taken Yes Yes -Tunneling No -Undermining/Tunneling No -Circular Undermining No -Exudate Amt Small Medium -Exudate Type Serosanguineous Serosanguineous -Wound Margin Flat & Intact Distinct, Outline Attached -Granulation Amt Large (67-100%) Small (1-33%) -Granulation Quality Red [place] -Slough/Fibrin No -Necrosis Amt Large (67-100%) -Necrotic Tissue Type Adherent Slough -Structure Exposed N/A -Texture ([place]-wound Skin Appearance) No Abnormality Assessed -Moisture ([place]-wound Skin Appearance) No Abnormality Assessed -Color ([place]-wound Skin Appearance) No Abnormality Assessed -Temperature ([place]-wound Skin No Abnormality No Abnormality Appearance) (Pt Warm) (Pt Warm) -Tenderness on Palpation ([place]-wound Yes No Skin Appearance) -Ulcer Cleansing Soap and Water Soap and Water -Foul Odor after Cleansing No No -Anesthetic Used 5% Lidocaine 5% Lidocaine Gel Gel WC - Nurse 2 - General Ulcer CM Notes Start: 12/31/24 09:28 Freq: Status: Active Protocol: Activity Type Activity Date Activity User E-sign Co-sign Detail Recorded Client Recorded Date Recorded By Document 12/31/24 09:50 [id number] 12/31/24 09:57 Document 01/14/25 10:49 [id number] 01/14/25 10:52 12/31/24 01/14/25 09:50 10:49 Wound Center Nurse 2 #2 Left lateral Ankle -Time 09:51 10:49 -Correct Patient Yes Yes -Correct Side, Site, Position Yes Yes -Correct Procedure Yes Yes -Procedure Performed Yes Yes -Type of Procedure Debridement Debridement -Clinical Debridement Subcutaneous Subcutaneous -Tissue Removed Subcutaneous Subcutaneous -Post Debridement (cm) - Length 2.3 3.0 -Post Debridement (cm) - Width 1.5 1.5 -Post Debridement (cm) - Depth 0.1 0.1 -Total Square (Post) (cm) 3.45 4.50 -Area of Debridement (cm) - Length 2.3 3.0 -Area of Debridement (cm) - Width 1.5 1.5 -Total Square (Area) (cm) 3.45 4.50 -Tunneling No No -Undermining/Tunneling No No -Circular Undermining No No -Wound/Ulcer Outcome Not Healed Not Healed -Ulcer Cleansing Rinsed/ Rinsed/ Irrigated with Irrigated with Saline Saline -Foul Odor after Cleansing No No -Bioengineered Tissue No No -Bleeding Controlled with Pressure Pressure -Treatment Response Procedure Procedure Tolerated Well Tolerated Well -Offloading No No -Debridement - Subq, 1st 20sq cm No No #1 Right lateral Ankle -Time 09:52 10:52 -Correct Patient Yes Yes -Correct Side, Site, Position Yes Yes -Correct Procedure Yes Yes -Procedure Performed Yes Yes -Type of Procedure Debridement Debridement -Clinical Debridement Subcutaneous Subcutaneous -Tissue Removed Subcutaneous Subcutaneous -Post Debridement (cm) - Length 1.6 3.0 -Post Debridement (cm) - Width 1.5 2.2 -Post Debridement (cm) - Depth 0.1 0.2 -Total Square (Post) (cm) 2.40 6.60 -Area of Debridement (cm) - Length 1.6 3.0 -Area of Debridement (cm) - Width 1.5 2.2 -Total Square (Area) (cm) 2.40 6.60 -Tunneling No No -Undermining/Tunneling No No -Circular Undermining No No -Wound/Ulcer Outcome Not Healed Not Healed -Ulcer Cleansing Rinsed/ Rinsed/ Irrigated with Irrigated with Saline Saline -Foul Odor after Cleansing No No -Bioengineered Tissue No No -Bleeding Controlled with Pressure Pressure -Treatment Response Procedure Procedure Tolerated Well Tolerated Well -Offloading No No -Debridement - Subq, 1st 20sq cm Yes Yes Pain Scale: 0-10 Numeric Is Patient Pain Free? Yes Yes WC - Nurse 3 - General Ulcer D/C NN Start: 12/31/24 09:28 Freq: Status: Active Protocol: Activity Type Activity Date Activity User E-sign Co-sign Detail Recorded Client Recorded Date Recorded By Document 12/31/24 10:14 RB [id number] 12/31/24 10:16 RB Document 01/14/25 11:13 RB [id number] 01/14/25 11:15 RB 12/31/24 01/14/25 10:14 11:13 Wound Care Center Nurse 3 #2 Left lateral Ankle -Ulcer Cleansing Rinsed/ Rinsed/ Irrigated with Irrigated with Saline Saline -Primary Dressing Applied Silicone Border Aquacel Extra, Foam 4x4 Silicone Border Foam 4x4 -Other Dressing DAkins moistened gauze -Aquacel Extra 1 -Silicone Border Foam 4x4 2 1 #1 Right lateral Ankle -Ulcer Cleansing Rinsed/ Irrigated with Saline -Primary Dressing Applied Silicone Border Silicone Border Foam 4x4 Foam 4x4 -Other Dressing dakins aquacel extra moistened gauze -Silicone Border Foam 4x4 1 1 Treatment Response Procedure Procedure Tolerated Well Tolerated Well Pain Scale: 0-10 Numeric Is Patient Pain Free? Yes Yes WC - Visit Discharge Discharge Condition Stable Stable Ambulatory Status Wheelchair Wheelchair Transportation NH transport NH transport Medication Reconcilliation completed & No No provided to patient/care provider Clinical Summary of Care Provided Yes Yes Additional Wound Wound debrided: Right lateral ankle Type of Debridement: Excisional debridement Anesthesia Used: 5% Lidocaine Gel Depth: Down to and including healthy tissue and in the subcutaneous layer Percentage of wound debrided: 100 Instrument Used: 5mm curette Tissue Removed: Slough and devitalized tissue Amount of bleeding with debridement: Mild Bleeding Controlled with: Pressure Patient tolerated procedure: Patient tolerated procedure well Assessment/Plan Assessment/Plan (1) Non-healing ulcer of left ankle with fat layer exposed: CODE(S): L97.322 - Non-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 Worsening noted to both ulcers today. Increased/significant periwound maceration. No chills, fever or feeling of unwell reported by his caregiver. Finally had his labs done, slight elevation in ESR at 37 and CRP at 11. Total white count also slightly elevated at 12. History of diabetes, A1c not done. Caregiver present today is not aware of how his dressing changes have been done or if he is consistently using his offloading boots. Started on antibiotics on the 10 of December and plan was to 6 weeks of doxycycline. Continue antibiotics and complete 6 weeks of doxycycline for osteomyelitis. Due to concern for drainage and maceration, will switch to Aquacel extra changing twice daily. Cover with foam dressing. Continue single-layer Tubigrip for compression and protection. Again, discussed with caregiver about offloading and pressure relief, she voiced understanding. Not a good candidate for hyperbaric oxygen treatment due to significant cognitive impairment. Recommend optimal diabetes control, adequate protein intake and offloading. Offloading boots/foam boots have been recommended as above. Instructions sent back to facility. They were advised to call with any questions or concerns. This note was generated with [employer] dictation software. It may contain incorrect words, spelling, and punctuation that were not noted in checking the note before signing.
--- NOTE | 2025-01-15 08:32 | WC ---
PHOTO-RIGHT LATERAL ANKLE 01/14/25
--- NOTE | 2025-01-15 08:36 | WC ---
PHOTO-RIGHT LATERAL ANKLE 01/14/25
--- NOTE | 2025-01-15 09:31 | WC ---
PHOTO-LEFT LATERAL ANKLE 01/14/25
--- NOTE | 2025-01-15 09:31 | WC ---
PHOTO-LEFT LATERAL ANKLE 01/14/25
[2025-01-21 09:34] VITALS: BP 89/42; PULSE 80; TEMP 36.1
[2025-01-21 09:52] VITALS: BP 101/64
--- NOTE | 2025-01-21 10:55 | PCM.WC.PN ---
History of Present Illness Date of Service: 01/21/25 Chief Complaint: Bilateral Foot Ulcers. History of Wound: Mr. Howe is a 69 yo referred to the wound center by his vascular surgery PA due to non healing bilateral ankle/foot ulcer. He is a poor historian due to memory impairment/dementia. Currently resides in a nursing facility. Per vascular surgery documentation, right lower extremity ulcer is chronic and left is more recent but has been present for months. Had imaging done including a CTA with no significant focal stenosis and three-vessel runoff. Also recently had repeat lower extremity arterial studies with no significant concerns noted. No indication for vascular intervention per documentation. History of diabetes mellitus type 2, no recent labs Progress of Wound: No acute concerns reported by the caregiver. He was switched to Aquacel extra following a 30-minute Dakin soak at his last visit due to periwound maceration. Maceration has improved however, right lateral ankle ulcer with increase in depth. Also concern for increased tenderness on examination. Objective Data Objective Data Vital Signs: Vital Signs Temp Pulse Resp BP O2 Del Method 96.9 F L 80 20 H 101/64 Room Air 01/21/25 09:34 01/21/25 09:34 01/14/25 10:18 01/21/25 09:52 01/21/25 09:34 Oxygen Delivery Method Room Air Charges/Coding Procedures Integumentary 111xxx-113xx: [id number] Marilia subq tissue 20 sq cm/< Physical Exam Const alert and no apparent distress General Appearance: cooperative and comfortable HEENT normocephalic and head/scalp atraumatic Eyes EOMs intact bilaterally Neck full ROM General: normal visual inspection Resp normal respiratory effort Effort and Inspection: able to speak in complete sentences Skin Wounds: wounds noted size Size: See clinical note, bed granulating well and with undermining, margins well approximated, no odor and surrounding erythema Neuro CN's II-XII intact bilaterally and moves all extremities Psych cooperative, affect normal and speech normal Debridement Note Debridement Note Wound debrided: Left lateral ankle/foot Type of Debridement: Excisional debridement Anesthesia Used: 4% Lidocaine Solution Depth: Down to and including healthy tissue and in the subcutaneous layer Percentage of wound debrided: 100 Instrument Used: 5mm curette Tissue Removed: Slough and vitalized tissue Severity: Fat Layer Exposed Amount of bleeding with debridement: Mild Bleeding Controlled with: Pressure Patient tolerated procedure: Patient tolerated procedure well Post-Debridement Measurements and Additional Note: Post-Debridement Measurements/Treatment - Nurse 1 - General Ulcer Assessment Start: 12/31/24 09:28 Freq: Status: Active Protocol: OFE Activity Type Activity Date Activity User E-sign Co-sign Detail Recorded Client Recorded Date Recorded By Document 12/31/24 09:28 CP [id number] 12/31/24 09:42 CP Document 01/14/25 10:18 DS [id number] 01/14/25 10:30 DS Edit Result 01/14/25 10:18 DS (1) [id number] 01/14/25 10:31 DS Document 01/21/25 09:34 DS [id number] 01/21/25 09:52 DS Document 01/21/25 09:52 DS [id number] 01/21/25 09:53 DS (1) Blood Pressure (90/60-120/80) 86/57 L => 102/57 L Blood Pressure Mean (mm Hg) 66 => 72 12/31/24 01/14/25 01/21/25 09:28 10:18 09:34 - Today's Visit Information Type of service Follow-up Visit Follow-up Visit Follow-up Visit (Physician/CABIN EQUIPMENT SUPERVISOR (Physician/CABIN EQUIPMENT SUPERVISOR (Physician/CABIN EQUIPMENT SUPERVISOR ) ) ) Arrival Mode Wheelchair Wheelchair Wheelchair Transfer Assistance Manual Other Transfer Assist (Other) 2 gait belt Accompanied by aide Patient Identification Verified (Name & Yes Yes Yes ) Patient Requires Transmission-Based No Precautions Safety Precautions Fall Prevention Fall Prevention Fall Prevention Vital Signs Temperature (97.8 F-99.1 F) 97.6 F L 97.5 F L 96.9 F L Temperature Source Temporal Temporal Temporal Pulse Rate (60-100) 68 85 80 Pulse Location Monitor Monitor Monitor Respiratory Rate (12-18) 16 20 H Respiratory rate source Observation Observation Observation Oxygen Delivery Method Room Air Room Air Blood Pressure (90/60-120/80) 94/42 L 102/57 L 89/42 L Blood Pressure Mean (mm Hg) 59 72 57 Source Monitor Monitor Monitor Position Sitting Semi-Fowlers Semi-Fowlers Blood Pressure Location Right Arm Right Arm Right Arm History Since Last Visit- (Skip if this is Patient's initial visit) Have you changed medications since your No No No last visit? Any new allergies or adverse reactions No No No Had a fall/change in ADL's that may No No No increase risk of falls Signs or symptoms of abuse and/or No No No neglect since last visit Have you been in the hospital since your No No No last visit? Has dressing in place as prescribed Yes Yes Yes Has compression in place as prescribed N/A N/A N/A Has offloadiing in place as prescribed No N/A N/A Experienced any changes in pain level or No No management Left Footwear Regular Shoe Regular Shoe Right Footwear Regular Shoe Regular Shoe Pain Scale: 0-10 Numeric Is Patient Pain Free? Yes Yes Yes 01/21/25 09:52 - Today's Visit Information Type of service Arrival Mode Transfer Assistance Transfer Assist (Other) Accompanied by Patient Identification Verified (Name & ) Patient Requires Transmission-Based Precautions Safety Precautions Vital Signs Temperature (97.8 F-99.1 F) Temperature Source Pulse Rate (60-100) Pulse Location Respiratory Rate (12-18) Respiratory rate source Oxygen Delivery Method Blood Pressure (90/60-120/80) 101/64 Blood Pressure Mean (mm Hg) 76 Source Manual Position Semi-Fowlers Blood Pressure Location Left Arm History Since Last Visit- (Skip if this is Patient's initial visit) Have you changed medications since your last visit? Any new allergies or adverse reactions Had a fall/change in ADL's that may increase risk of falls Signs or symptoms of abuse and/or neglect since last visit Have you been in the hospital since your last visit? Has dressing in place as prescribed Has compression in place as prescribed Has offloadiing in place as prescribed Experienced any changes in pain level or management Left Footwear Right Footwear Pain Scale: 0-10 Numeric Is Patient Pain Free? Yes - Nurse 1 - General Ulcer Measurement Start: 12/31/24 09:28 Freq: Status: Active Protocol: Activity Type Activity Date Activity User E-sign Co-sign Detail Recorded Client Recorded Date Recorded By Document 12/31/24 09:28 CP [id number] 12/31/24 09:42 CP Document 01/14/25 10:18 DS [id number] 01/14/25 10:30 DS Document 01/21/25 09:34 DS [id number] 01/21/25 09:52 DS 12/31/24 01/14/25 01/21/25 09:28 10:18 09:34 Wound Center Nurse 1 #2 Left lateral Ankle -Current Size (cm) - Length 2.4 2.5 2.5 -Current Size (cm) - Width 1.3 1.5 1.5 -Current Size (cm) - Depth 0.2 0.2 0.4 -Total Square Cm 3.12 3.75 3.75 -Date of Last Picture (Recall this 12/31/24 01/14/25 01/21/25 field) -Photo Taken Yes Yes -Epithelialization None Present -Tunneling No No -Undermining/Tunneling No No -Circular Undermining No No -Exudate Amt Small Medium -Exudate Type Serosanguineous Serosanguineous -Wound Margin Flat & Intact Distinct, Distinct, Outline Outline Attached Attached -Granulation Amt Large (67-100%) Small (1-33%) Small (1-33%) -Granulation Quality Red Red -Slough/Fibrin Yes -Necrosis Amt Small (1-33%) Large (67-100%) Large (67-100%) -Necrotic Tissue Type Adherent Slough Adherent Slough Eschar -Structure Exposed N/A -Texture ([place]-wound Skin Appearance) No Abnormality Assessed Assessed -Moisture ([place]-wound Skin Appearance) No Abnormality Assessed Assessed -Color ([place]-wound Skin Appearance) No Abnormality Assessed, Assessed Ecchymosis -Temperature ([place]-wound Skin No Abnormality No Abnormality No Abnormality Appearance) (Pt Warm) (Pt Warm) (Pt Warm) -Tenderness on Palpation ([place]-wound No No Skin Appearance) -Ulcer Cleansing Soap and Water Soap and Water Soap and Water -Foul Odor after Cleansing No No -Anesthetic Used 5% Lidocaine 5% Lidocaine 5% Lidocaine Gel Gel Gel #1 Right lateral Ankle -Current Size (cm) - Length 2 2.5 2.1 -Current Size (cm) - Width 1.7 2.4 2.8 -Current Size (cm) - Depth 0.1 0.3 0.5 -Total Square Cm 3.4 6.00 5.88 -Date of Last Picture (Recall this 12/31/24 01/14/25 01/21/25 field) -Photo Taken Yes Yes Yes -Tunneling No No -Undermining/Tunneling No No -Circular Undermining No No -Exudate Amt Small Medium -Exudate Type Serosanguineous Serosanguineous -Wound Margin Flat & Intact Distinct, Distinct, Outline Outline Attached Attached -Granulation Amt Large (67-100%) Small (1-33%) -Granulation Quality Red [place] -Slough/Fibrin No -Necrosis Amt Large (67-100%) Large (67-100%) -Necrotic Tissue Type Adherent Slough Eschar -Structure Exposed N/A -Texture ([place]-wound Skin Appearance) No Abnormality Assessed Assessed -Moisture ([place]-wound Skin Appearance) No Abnormality Assessed Assessed -Color ([place]-wound Skin Appearance) No Abnormality Assessed Assessed -Temperature ([place]-wound Skin No Abnormality No Abnormality No Abnormality Appearance) (Pt Warm) (Pt Warm) (Pt Warm) -Tenderness on Palpation ([place]-wound Yes No Skin Appearance) -Ulcer Cleansing Soap and Water Soap and Water Soap and Water -Foul Odor after Cleansing No No No -Anesthetic Used 5% Lidocaine 5% Lidocaine 5% Lidocaine Gel Gel Gel WC - Nurse 2 - General Ulcer CM Notes Start: 12/31/24 09:28 Freq: Status: Active Protocol: Activity Type Activity Date Activity User E-sign Co-sign Detail Recorded Client Recorded Date Recorded By Document 12/31/24 09:50 [id number] 12/31/24 09:57 Document 01/14/25 10:49 [id number] 01/14/25 10:52 Document 01/21/25 10:21 [id number] 01/21/25 10:37 12/31/24 01/14/25 01/21/25 09:50 10:49 10:21 Wound Center Nurse 2 #2 Left lateral Ankle -Time 09:51 10:49 10:22 -Correct Patient Yes Yes Yes -Correct Side, Site, Position Yes Yes Yes -Correct Procedure Yes Yes Yes -Procedure Performed Yes Yes Yes -Type of Procedure Debridement Debridement Debridement -Clinical Debridement Subcutaneous Subcutaneous Subcutaneous -Tissue Removed Subcutaneous Subcutaneous Subcutaneous -Post Debridement (cm) - Length 2.3 3.0 -Post Debridement (cm) - Width 1.5 1.5 -Post Debridement (cm) - Depth 0.1 0.1 -Total Square (Post) (cm) 3.45 4.50 -Area of Debridement (cm) - Length 2.3 3.0 -Area of Debridement (cm) - Width 1.5 1.5 -Total Square (Area) (cm) 3.45 4.50 -Tunneling No No No -Undermining/Tunneling No No No -Circular Undermining No No No -Wound/Ulcer Outcome Not Healed Not Healed Not Healed -Ulcer Cleansing Rinsed/ Rinsed/ Rinsed/ Irrigated with Irrigated with Irrigated with Saline Saline Saline -Foul Odor after Cleansing No No No -Bioengineered Tissue No No No -Bleeding Controlled with Pressure Pressure Pressure -Treatment Response Procedure Procedure Procedure Tolerated Well Tolerated Well Tolerated Well -Offloading No No No -Debridement - Subq, 1st 20sq cm No No No #1 Right lateral Ankle -Time 09:52 10:52 10:22 -Correct Patient Yes Yes Yes -Correct Side, Site, Position Yes Yes Yes -Correct Procedure Yes Yes Yes -Procedure Performed Yes Yes Yes -Type of Procedure Debridement Debridement Debridement -Clinical Debridement Subcutaneous Subcutaneous Subcutaneous -Tissue Removed Subcutaneous Subcutaneous Subcutaneous -Post Debridement (cm) - Length 1.6 3.0 2.0 -Post Debridement (cm) - Width 1.5 2.2 2.0 -Post Debridement (cm) - Depth 0.1 0.2 0.9 -Total Square (Post) (cm) 2.40 6.60 4.00 -Area of Debridement (cm) - Length 1.6 3.0 2.0 -Area of Debridement (cm) - Width 1.5 2.2 2.0 -Total Square (Area) (cm) 2.40 6.60 4.00 -Tunneling No No No -Undermining/Tunneling No No Yes -Undermining/Tunneling Starts (O'clock 9 ) -Undermining/Tunneling Ends (O'clock) 11 -Maximum Distance (cm) 0.9 -Circular Undermining No No No -Wound/Ulcer Outcome Not Healed Not Healed Not Healed -Ulcer Cleansing Rinsed/ Rinsed/ Rinsed/ Irrigated with Irrigated with Irrigated with Saline Saline Saline -Foul Odor after Cleansing No No No -Bioengineered Tissue No No No -Bleeding Controlled with Pressure Pressure Pressure -Treatment Response Procedure Procedure Procedure Tolerated Well Tolerated Well Tolerated Well -Offloading No No No -Debridement - Subq, 1st 20sq cm Yes Yes Yes Pain Scale: 0-10 Numeric Is Patient Pain Free? Yes Yes Yes WC - Nurse 3 - General Ulcer D/C NN Start: 12/31/24 09:28 Freq: Status: Active Protocol: Activity Type Activity Date Activity User E-sign Co-sign Detail Recorded Client Recorded Date Recorded By Document 12/31/24 10:14 RB [id number] 12/31/24 10:16 RB Document 01/14/25 11:13 RB [id number] 01/14/25 11:15 RB Document 01/21/25 10:47 VT [id number] 01/21/25 10:54 VT 12/31/24 01/14/25 01/21/25 10:14 11:13 10:47 Wound Care Center Nurse 3 #2 Left lateral Ankle -Ulcer Cleansing Rinsed/ Rinsed/ Irrigated with Irrigated with Saline Saline -Primary Dressing Applied Silicone Border Aquacel Extra, Silicone Border Foam 4x4 Silicone Border Foam 4x4 Foam 4x4 -Other Dressing DAkins soaked wound in moistened gauze dakins, aquacel extra, foam -Aquacel Extra 1 -Silicone Border Foam 4x4 2 1 1 #1 Right lateral Ankle -Ulcer Cleansing Rinsed/ Irrigated with Saline -Primary Dressing Applied Silicone Border Silicone Border Aquacel Extra, Foam 4x4 Foam 4x4 Silicone Border Foam 4x4 -Other Dressing dakins aquacel extra soaked wound in moistened gauze dakins, aquacel extra, foam -Aquacel Extra 1 -Silicone Border Foam 4x4 1 1 1 Treatment Response Procedure Procedure Tolerated Well Tolerated Well Pain Scale: 0-10 Numeric Is Patient Pain Free? Yes Yes Yes WC - Visit Discharge Discharge Condition Stable Stable Unstable Ambulatory Status Wheelchair Wheelchair Unsteady,Walker ,Wheelchair Transportation [place] transport [place] transport Accompanied by staff Medication Reconcilliation completed & No No provided to patient/care provider Clinical Summary of Care Provided Yes Yes Notes: exaplined to the staff member from [facility] that pt has orders for labs and xray Additional Wound Wound debrided: Right lateral ankle/foot Type of Debridement: Excisional debridement Anesthesia Used: 4% Lidocaine Solution Depth: Down to and including healthy tissue and in the subcutaneous layer Percentage of wound debrided: 100 Instrument Used: 7mm curette, #15 blade and Forceps Tissue Removed: Slough and devitalized tissue Amount of bleeding with debridement: Mild Bleeding Controlled with: Pressure Patient tolerated procedure: Patient tolerated procedure well Assessment/Plan Assessment/Plan (1) Non-healing ulcer of left ankle with fat layer exposed: CODE(S): L97.322 - Non-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 Less maceration and erythema appreciated today compared to his last visit. Some improvement in circumference as well however worsening depth and new undermining noted to right lateral ankle. Also appears more tender. Continue 30 minutes Dakin soak, Aquacel extra changing twice daily. Cover with foam dressing. Continue single-layer Tubigrip for compression and protection. X-ray of his right foot/ankle ordered to rule out osteomyelitis. Had early osteomyelitis to his left following an MRI despite a negative x-ray. Due to worsening on the right, an x-ray ordered. Labs also ordered and his caregiver was strongly advised to get this done as soon as possible to avoid delaying care. Culture taken, will review. Not a good candidate for hyperbaric oxygen treatment due to significant cognitive impairment. Recommend optimal diabetes control, adequate protein intake and offloading. Offloading boots/foam boots have been recommended as above. Instructions sent back to facility. They were advised to call with any questions or concerns. This note was generated with [employer] dictation software. It may contain incorrect words, spelling, and punctuation that were not noted in checking the note before signing.
--- NOTE | 2025-01-22 08:35 | WC ---
PHOTO-RIGHT ANKLE 01/21/25
--- NOTE | 2025-01-22 08:42 | WC ---
PHOTO-LEFT ANKLE 01/21/25
== END 2025-01-24 23:59 | disposition home or self-care (01) ==
LOC: WC 09:30
PROVIDERS: PCP Internal Medicine; Referring Provider Physician Assistant; Visit Provider Internal Medicine
DX: E11.621 Type 2 diabetes mellitus with foot ulcer (principal); L97.322 Non-pressure chronic ulcer of left ankle with fat layer exposed; L97.312 Non-pressure chronic ulcer of right ankle with fat layer exposed; F03.90 Unspecified dementia, unspecified severity, without behavioral disturbance, psychotic disturbance, mood disturbance, and anxiety; R53.81 Other malaise; R41.3 Other amnesia
CPT/HCPCS: 11042; 87070; 87075; 87077; 87186; 87205

== ENCOUNTER → 2025-02-17 | Outpatient (CLI) | payer MEDICARE, MEDICAID, SELFPAY ==
--- NOTE | 2025-02-17 10:12 | MRI_ITS ---
PROCEDURE: LOWER EXT JOINT ONLY (ROUTINE) 02/17/2025 REASON FOR EXAM: RIGHT ANKLE ULCER, INFECTION, R/O OSTEOMYELITIS Lateral right ankle ulcer and infection. Rule out osteomyelitis. TECHNIQUE: Procedure Code: MRILEJ Modality: MR Procedure: MRI of the right ankle without contrast. Multiplanar and multisequence images were obtained without IV contrast administration. COMPARISON: COMPARISON : Right ankle study 11/20/2024. FINDINGS: Skin ulceration is seen over the lateral malleolus of the right ankle. Subjacent to that, bone marrow edema in the lateral malleolus is seen. Although no clear cortical break is appreciated, this may represent early changes of osteomyelitis the lateral malleolus. No other area of abnormal osseous signal is seen. No joint effusion is noted. No evidence of talar dome osteonecrosis. No ligament disruption is seen. The tendons demonstrate no significant pathology. The Achilles tendon is normal in appearance. Mild inferior calcaneal spurring is seen, as well MRI/Lower Ext Joint Only (Routine) IMPRESSION: A skin ulcer overlying the lateral malleolus of the right ankle is seen, with s ubjacent lateral malleolar bone marrow edema. Although no cortical disruption is identified, this may represent early changes of osteomyelitis of the lateral malleolus. Reading Location: [id number]
== END | disposition home or self-care (01) ==
LOC: MRI 10:04
PROVIDERS: PCP Internal Medicine; Referring Provider Internal Medicine; Visit Provider Internal Medicine
DX: L97.319 Non-pressure chronic ulcer of right ankle with unspecified severity (principal)
CPT/HCPCS: 73721

== ENCOUNTER 2025-02-18 09:30 | Outpatient (RCR) | payer MEDICARE, MEDICAID, SELFPAY ==
[2025-01-28 09:39] VITALS: BP 114/68; PULSE 76; RESP 18; TEMP 36.1
--- NOTE | 2025-01-28 12:44 | PCM.WC.PN ---
History of Present Illness Date of Service: 01/28/25 Chief Complaint: Bilateral Foot Ulcers. History of Wound: Mr. Howe is a 69 yo referred to the wound center by his vascular surgery PA due to non healing bilateral ankle/foot ulcer. He is a poor historian due to memory impairment/dementia. Currently resides in a nursing facility. Per vascular surgery documentation, right lower extremity ulcer is chronic and left is more recent but has been present for months. Had imaging done including a CTA with no significant focal stenosis and three-vessel runoff. Also recently had repeat lower extremity arterial studies with no significant concerns noted. No indication for vascular intervention per documentation. History of diabetes mellitus type 2, no recent labs Progress of Wound: No concerns reported at this time. Here with his caregiver who also does not report any acute concerns. Did get imaging and labs ordered at his last visit. Imaging not suggestive of osteomyelitis. Some improvement noted since his last visit. Was started on clindamycin by his nurse practitioner due to elevated white count. Had cultures done at his last visit as well. Objective Data Objective Data Vital Signs: Vital Signs Temp Pulse Resp BP O2 Del Method 97 F L 76 18 114/68 Room Air 01/28/25 09:39 01/28/25 09:39 01/28/25 09:39 01/28/25 09:39 01/28/25 09:39 Oxygen Delivery Method Room Air Charges/Coding Procedures Integumentary [id number]: [id number] Marilia subq tissue 20 sq cm/< Physical Exam Const alert and no apparent distress General Appearance: cooperative and comfortable HEENT normocephalic and head/scalp atraumatic Eyes EOMs intact bilaterally Neck full ROM General: normal visual inspection Resp normal respiratory effort Effort and Inspection: able to speak in complete sentences Skin Wounds: wounds noted size Size: See clinical note, bed granulating well and with undermining, margins well approximated, no odor and surrounding erythema Neuro CN's II-XII intact bilaterally and moves all extremities Psych cooperative, affect normal and speech normal Debridement Note Debridement Note Wound debrided: Right lateral malleoli Type of Debridement: Excisional debridement Anesthesia Used: 5% Lidocaine Gel Depth: Down to and including healthy tissue and in the subcutaneous layer Percentage of wound debrided: 100 Instrument Used: 5mm curette Tissue Removed: Devitalized tissue Severity: Fat Layer Exposed Amount of bleeding with debridement: Mild Bleeding Controlled with: Pressure Patient tolerated procedure: Patient tolerated procedure well Post-Debridement Measurements and Additional Note: Post-Debridement Measurements/Treatment - Nurse 1 - General Ulcer Assessment Start: 01/28/25 09:39 Freq: Status: Active Protocol: OFE Activity Type Activity Date Activity User E-sign Co-sign Detail Recorded Client Recorded Date Recorded By Document 01/28/25 09:39 SD [id number] 01/28/25 09:53 SD 01/28/25 09:39 - Today's Visit Information Type of service Follow-up Visit (Physician/[employer] ) Arrival Mode Wheelchair Accompanied by AID Patient Identification Verified (Name & Yes ) Safety Precautions Fall Prevention Vital Signs Temperature (97.8 F-99.1 F) 97 F L Temperature Source Temporal Pulse Rate (60-100) 76 Pulse Location Monitor Respiratory Rate (12-18) 18 Respiratory rate source Observation Oxygen Delivery Method Room Air Blood Pressure (90/60-120/80) 114/68 Blood Pressure Mean (mm Hg) 83 Source Monitor Position Sitting Blood Pressure Location Right Arm History Since Last Visit- (Skip if this is Patient's initial visit) Has dressing in place as prescribed Yes Has compression in place as prescribed Yes Has offloadiing in place as prescribed Yes Experienced any changes in pain level or Yes management Left Footwear Regular Shoe Right Footwear Regular Shoe Pain Scale: 0-10 Numeric Is Patient Pain Free? Yes Yo Nurse 1 - General Ulcer Measurement Start: 01/28/25 09:39 Freq: Status: Active Protocol: Activity Type Activity Date Activity User E-sign Co-sign Detail Recorded Client Recorded Date Recorded By Document 01/28/25 09:39 SD [id number] 01/28/25 09:53 SD 01/28/25 09:39 Wound Center Nurse 1 #2 Left lateral Ankle -Current Size (cm) - Length 1.9 -Current Size (cm) - Width 0.7 -Current Size (cm) - Depth 0.1 -Total Square Cm 1.33 -Date of Last Picture (Recall this 01/28/25 field) -Photo Taken Yes -Tunneling No -Undermining/Tunneling No -Circular Undermining No -Exudate Amt Medium -Exudate Type Serosanguineous -Wound Margin Thickened & Rolled Under -Granulation Amt Large (67-100%) -Granulation Quality Pale,[place],Red -Slough/Fibrin No -Texture ([place]-wound Skin Appearance) Assessed -Moisture ([place]-wound Skin Appearance) Assessed -Color ([place]-wound Skin Appearance) Assessed -Temperature ([place]-wound Skin No Abnormality Appearance) (Pt Warm) -Tenderness on Palpation ([place]-wound No Skin Appearance) -Ulcer Cleansing Soap and Water -Foul Odor after Cleansing No -Anesthetic Used 5% Lidocaine Gel #1 Right lateral Ankle -Current Size (cm) - Length 1.9 -Current Size (cm) - Width 1.1 -Current Size (cm) - Depth 0.2 -Total Square Cm 2.09 -Date of Last Picture (Recall this 01/28/25 field) -Photo Taken Yes -Tunneling No -Undermining/Tunneling No -Circular Undermining No -Exudate Amt Medium -Exudate Type Serosanguineous -Wound Margin Thickened & Rolled Under -Granulation Amt Large (67-100%) -Granulation Quality Pale,[place],Red -Slough/Fibrin No -Necrosis Amt Small (1-33%) -Texture ([place]-wound Skin Appearance) Assessed -Moisture ([place]-wound Skin Appearance) Assessed -Color ([place]-wound Skin Appearance) Assessed -Temperature ([place]-wound Skin No Abnormality Appearance) (Pt Warm) -Tenderness on Palpation ([place]-wound No Skin Appearance) -Ulcer Cleansing Soap and Water -Foul Odor after Cleansing No -Anesthetic Used 5% Lidocaine Gel Lower Limb Edema Present NA WC - Nurse 2 - General Ulcer CM Notes Start: 01/28/25 09:39 Freq: Status: Active Protocol: Activity Type Activity Date Activity User E-sign Co-sign Detail Recorded Client Recorded Date Recorded By Document 01/28/25 10:05 [id number] 01/28/25 10:17 01/28/25 10:05 Wound Center Nurse 2 #2 Left lateral Ankle -Time 10:05 -Correct Patient Yes -Correct Side, Site, Position Yes -Correct Procedure Yes -Procedure Performed Yes -Type of Procedure Debridement -Clinical Debridement Subcutaneous -Tissue Removed Subcutaneous -Post Debridement (cm) - Length 1.5 -Post Debridement (cm) - Width 0.8 -Post Debridement (cm) - Depth 0.1 -Total Square (Post) (cm) 1.20 -Area of Debridement (cm) - Length 1.5 -Area of Debridement (cm) - Width 0.8 -Total Square (Area) (cm) 1.20 -Tunneling No -Undermining/Tunneling No -Circular Undermining No -Wound/Ulcer Outcome Not Healed -Ulcer Cleansing Rinsed/ Irrigated with Saline -Foul Odor after Cleansing No -Bioengineered Tissue No -Bleeding Controlled with Pressure -Treatment Response Procedure Tolerated Well -Offloading No -Assistive Device(s) Wheelchair -Debridement - Subq, 1st 20sq cm No #1 Right lateral Ankle -Time 10:06 -Correct Patient Yes -Correct Side, Site, Position Yes -Correct Procedure Yes -Procedure Performed Yes -Type of Procedure Debridement -Clinical Debridement Subcutaneous -Tissue Removed Subcutaneous -Post Debridement (cm) - Length 1.5 -Post Debridement (cm) - Width 1.2 -Post Debridement (cm) - Depth 0.5 -Total Square (Post) (cm) 1.80 -Area of Debridement (cm) - Length 1.5 -Area of Debridement (cm) - Width 1.2 -Total Square (Area) (cm) 1.80 -Tunneling No -Undermining/Tunneling Yes -Undermining/Tunneling Starts (O'clock 7 ) -Undermining/Tunneling Ends (O'clock) 11 -Maximum Distance (cm) 1.2 -Circular Undermining No -Wound/Ulcer Outcome Not Healed -Ulcer Cleansing Rinsed/ Irrigated with Saline -Foul Odor after Cleansing No -Bioengineered Tissue No -Bleeding Controlled with Pressure -Treatment Response Procedure Tolerated Well -Debridement - Subq, 1st 20sq cm Yes Pain Scale: 0-10 Numeric Is Patient Pain Free? Yes - Nurse 3 - General Ulcer D/C NN Start: 01/28/25 09:39 Freq: Status: Active Protocol: Activity Type Activity Date Activity User E-sign Co-sign Detail Recorded Client Recorded Date Recorded By Document 01/28/25 10:29 SD [id number] 01/28/25 10:33 SD 01/28/25 10:29 Wound Care Center Nurse 3 #2 Left lateral Ankle -Ulcer Cleansing Soap and Water -Primary Dressing Applied Aquacel Extra, Silicone Border Foam 4x4 -Other Dressing DAKINS -Aquacel Extra 1 -Silicone Border Foam 4x4 1 #1 Right lateral Ankle -Primary Dressing Applied Aquacel Extra, Silicone Border Foam 4x4 -Primary Dressing Covered/Secured with Dry Gauze & Roll Gauze, Secured with Tape -Aquacel Extra 1 -Silicone Border Foam 4x4 1 Pain Scale: 0-10 Numeric Is Patient Pain Free? Yes WC - Visit Discharge Discharge Condition Stable Ambulatory Status Ambulatory Transportation Private Auto Medication Reconcilliation completed & No provided to patient/care provider Clinical Summary of Care Provided Yes Notes: DRESSING EXPLAINED TO AID Additional Wound Wound debrided: Left lateral malleoli Type of Debridement: Excisional debridement Anesthesia Used: 5% Lidocaine Gel Depth: Down to and including healthy tissue and in the subcutaneous layer Percentage of wound debrided: 100 Instrument Used: 3mm curette Tissue Removed: Devitalized tissue Severity: Fat Layer Exposed Amount of bleeding with debridement: Mild Bleeding Controlled with: Pressure Patient tolerated procedure: Patient tolerated procedure well Assessment/Plan Assessment/Plan (1) Non-healing ulcer of left ankle with fat layer exposed: CODE(S): L97.322 - Non-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 As above, some improvement noted to both ulcers. Undermining still present to the right however imaging done not suggestive of osteomyelitis. Labs done also with largely stable numbers. Mild increase in WBC from 12-14 however ESR slightly reduced at 33 down from 37 previously. CRP also at 11 similar to last check. Due to clinical improvement, we will hold off MRI at this time. Due to proximity to bone, increased risk for osteomyelitis and based off of culture and sensitivity, will discontinue clindamycin( Has had less than 24 hours of this ) and start on Augmentin 875/125 for 14 days and ciprofloxacin, 250 mg twice daily for 10 days. Will discuss with facility to monitor the renal function closely due to mild drop noted on recent labs. Continue 30 minutes Dakin soak, Aquacel extra changing twice daily. Cover with foam dressing. Continue single-layer Tubigrip for compression and protection. Not a good candidate for hyperbaric oxygen treatment due to significant cognitive impairment. Recommend optimal diabetes control, adequate protein intake and offloading. Offloading boots/foam boots have been recommended as above. Instructions sent back to facility. They were advised to call with any questions or concerns. This note was generated with [employer] dictation software. It may contain incorrect words, spelling, and punctuation that were not noted in checking the note before signing.
--- NOTE | 2025-01-28 13:23 | WC ---
PHOTO-R LAT ANKLE 01/28/25
--- NOTE | 2025-01-28 13:25 | WC ---
PHOTO-LEFT LATERAL ANKLE 01/28/25
[2025-02-04 10:28] VITALS: BP 116/69; PULSE 70; RESP 18; TEMP 36.3
--- NOTE | 2025-02-04 10:59 | PCM.WC.PN ---
History of Present Illness Date of Service: 02/04/25 Chief Complaint: Bilateral Foot Ulcers. History of Wound: Mr. Howe is a 69 yo referred to the wound center by his vascular surgery PA due to non healing bilateral ankle/foot ulcer. He is a poor historian due to memory impairment/dementia. Currently resides in a nursing facility. Per vascular surgery documentation, right lower extremity ulcer is chronic and left is more recent but has been present for months. Had imaging done including a CTA with no significant focal stenosis and three-vessel runoff. Also recently had repeat lower extremity arterial studies with no significant concerns noted. No indication for vascular intervention per documentation. History of diabetes mellitus type 2, no recent labs Progress of Wound: No acute concerns reported by the patient or his caregiver present with him. She states that she does not know much about his clinical care. New concern for area of erythema to both ulcers. Patient denies increased pain on examination. Objective Data Objective Data Vital Signs: Vital Signs Temp Pulse Resp BP O2 Del Method 97.4 F L 70 18 116/69 Room Air 02/04/25 10:28 02/04/25 10:28 02/04/25 10:28 02/04/25 10:28 01/28/25 09:39 Oxygen Delivery Method Room Air Charges/Coding Procedures Integumentary 111xxx-113xx: [id number] Marilia subq tissue 20 sq cm/< Physical Exam Const alert and no apparent distress General Appearance: cooperative and comfortable HEENT normocephalic and head/scalp atraumatic Eyes EOMs intact bilaterally Neck full ROM General: normal visual inspection Resp normal respiratory effort Effort and Inspection: able to speak in complete sentences Skin Wounds: wounds noted size Size: See clinical note, bed granulating well and with undermining, margins macerated, well approximated and surrounding erythema and no odor Neuro CN's II-XII intact bilaterally and moves all extremities Psych cooperative, affect normal and speech normal Debridement Note Debridement Note Wound debrided: Right ankle Type of Debridement: Excisional debridement Anesthesia Used: 5% Lidocaine Gel Depth: Down to and including healthy tissue and in the subcutaneous layer Percentage of wound debrided: 100 Instrument Used: 5mm curette Tissue Removed: Devitalized tissue Severity: Fat Layer Exposed Amount of bleeding with debridement: Mild Bleeding Controlled with: Pressure Patient tolerated procedure: Patient tolerated procedure well Post-Debridement Measurements and Additional Note: Post-Debridement Measurements/Treatment WC - Nurse 1 - General Ulcer Assessment Start: 01/28/25 09:39 Freq: Status: Active Protocol: OFE Activity Type Activity Date Activity User E-sign Co-sign Detail Recorded Client Recorded Date Recorded By Document 01/28/25 09:39 MT [id number] 01/28/25 09:53 MT Document 02/04/25 10:28 RB [id number] 02/04/25 10:31 RB 01/28/25 02/04/25 09:39 10:28 - Today's Visit Information Type of service Follow-up Visit Follow-up Visit (Physician/TELEPHONIC NURSE CASE MANAGER (Physician/TELEPHONIC NURSE CASE MANAGER ) ) Arrival Mode Wheelchair Ambulatory Transfer Assistance None Accompanied by AID Patient Identification Verified (Name & Yes Yes ) Patient Requires Transmission-Based No Precautions Safety Precautions Fall Prevention Vital Signs Temperature (97.8 F-99.1 F) 97 F L 97.4 F L Temperature Source Temporal Temporal Pulse Rate (60-100) 76 70 Pulse Location Monitor Monitor Respiratory Rate (12-18) 18 18 Respiratory rate source Observation Observation Oxygen Delivery Method Room Air Blood Pressure (90/60-120/80) 114/68 116/69 Blood Pressure Mean (mm Hg) 83 84 Source Monitor Monitor Position Sitting Semi-Fowlers Blood Pressure Location Right Arm Left Arm History Since Last Visit- (Skip if this is Patient's initial visit) Have you changed medications since your No last visit? Any new allergies or adverse reactions No Had a fall/change in ADL's that may No increase risk of falls Signs or symptoms of abuse and/or No neglect since last visit Have you been in the hospital since your No last visit? Has dressing in place as prescribed Yes Yes Has compression in place as prescribed Yes N/A Has offloadiing in place as prescribed Yes No Experienced any changes in pain level or Yes Yes management Left Footwear Regular Shoe Regular Shoe Right Footwear Regular Shoe Regular Shoe Pain Scale: 0-10 Numeric Is Patient Pain Free? Yes Yes - Nurse 1 - General Ulcer Measurement Start: 01/28/25 09:39 Freq: Status: Active Protocol: Activity Type Activity Date Activity User E-sign Co-sign Detail Recorded Client Recorded Date Recorded By Document 01/28/25 09:39 MT [id number] 01/28/25 09:53 MT Document 02/04/25 10:28 RB [id number] 02/04/25 10:31 RB 01/28/25 02/04/25 09:39 10:28 Wound Center Nurse 1 #2 Left lateral Ankle -Combined with other wound No -Current Size (cm) - Length 1.9 2 -Current Size (cm) - Width 0.7 0.6 -Current Size (cm) - Depth 0.1 0.2 -Total Square Cm 1.33 1.2 -Date of Last Picture (Recall this 01/28/25 field) -Photo Taken Yes Yes -Tunneling No No -Undermining/Tunneling No No -Circular Undermining No No -Exudate Amt Medium Medium -Exudate Type Serosanguineous Serosanguineous -Wound Margin Thickened & Distinct, Rolled Under Outline Attached -Granulation Amt Large (67-100%) Medium (34-66%) -Granulation Quality Pale,[place],Red [place] -Slough/Fibrin No Yes -Necrosis Amt Medium (34-66%) -Necrotic Tissue Type Adherent Slough -Structure Exposed N/A -Texture (True-wound Skin Appearance) Assessed Assessed, Excoriation -Moisture (True-wound Skin Appearance) Assessed Assessed -Color (True-wound Skin Appearance) Assessed Erythema, Hemosiderin Staining -Temperature (True-wound Skin No Abnormality No Abnormality Appearance) (Pt Warm) (Pt Warm) -Tenderness on Palpation (True-wound No No Skin Appearance) -Ulcer Cleansing Soap and Water Wound Cleanser -Foul Odor after Cleansing No No -Anesthetic Used 5% Lidocaine 5% Lidocaine Gel Gel #1 Right lateral Ankle -Combined with other wound No -Current Size (cm) - Length 1.9 1.5 -Current Size (cm) - Width 1.1 1 -Current Size (cm) - Depth 0.2 0.3 -Total Square Cm 2.09 1.5 -Date of Last Picture (Recall this 01/28/25 field) -Photo Taken Yes Yes -Tunneling No No -Undermining/Tunneling No No -Circular Undermining No No -Exudate Amt Medium Medium -Exudate Type Serosanguineous Serosanguineous -Wound Margin Thickened & Distinct, Rolled Under Outline Attached -Granulation Amt Large (67-100%) Medium (34-66%) -Granulation Quality Pale,[place],Red [place] -Slough/Fibrin No Yes -Necrosis Amt Small (1-33%) Medium (34-66%) -Necrotic Tissue Type Adherent Slough -Structure Exposed N/A -Texture (True-wound Skin Appearance) Assessed Assessed, Excoriation -Moisture (True-wound Skin Appearance) Assessed Assessed -Color (True-wound Skin Appearance) Assessed Assessed, Erythema -Temperature (True-wound Skin No Abnormality No Abnormality Appearance) (Pt Warm) (Pt Warm) -Tenderness on Palpation (True-wound No No Skin Appearance) -Ulcer Cleansing Soap and Water Wound Cleanser -Foul Odor after Cleansing No No -Anesthetic Used 5% Lidocaine 5% Lidocaine Gel Gel Lower Limb Edema Present NA WC - Nurse 2 - General Ulcer CM Notes Start: 01/28/25 09:39 Freq: Status: Active Protocol: Activity Type Activity Date Activity User E-sign Co-sign Detail Recorded Client Recorded Date Recorded By Document 01/28/25 10:05 [id number] 01/28/25 10:17 Document 02/04/25 10:37 [id number] 02/04/25 10:45 01/28/25 02/04/25 10:05 10:37 Wound Center Nurse 2 #2 Left lateral Ankle -Time 10:05 10:41 -Correct Patient Yes Yes -Correct Side, Site, Position Yes Yes -Correct Procedure Yes Yes -Procedure Performed Yes Yes -Type of Procedure Debridement Debridement -Clinical Debridement Subcutaneous Subcutaneous -Tissue Removed Subcutaneous Subcutaneous -Post Debridement (cm) - Length 1.5 1.9 -Post Debridement (cm) - Width 0.8 0.7 -Post Debridement (cm) - Depth 0.1 0.1 -Total Square (Post) (cm) 1.20 1.33 -Area of Debridement (cm) - Length 1.5 1.9 -Area of Debridement (cm) - Width 0.8 0.7 -Total Square (Area) (cm) 1.20 1.33 -Tunneling No No -Undermining/Tunneling No No -Circular Undermining No No -Wound/Ulcer Outcome Not Healed Not Healed -Ulcer Cleansing Rinsed/ Rinsed/ Irrigated with Irrigated with Saline Saline -Foul Odor after Cleansing No No -Bioengineered Tissue No No -Bleeding Controlled with Pressure Pressure -Treatment Response Procedure Procedure Tolerated Well Tolerated Well -Offloading No No -Assistive Device(s) Wheelchair -Debridement - Subq, 1st 20sq cm No No #1 Right lateral Ankle -Time 10:06 10:37 -Correct Patient Yes Yes -Correct Side, Site, Position Yes Yes -Correct Procedure Yes Yes -Procedure Performed Yes Yes -Type of Procedure Debridement Debridement -Clinical Debridement Subcutaneous Subcutaneous -Tissue Removed Subcutaneous Subcutaneous -Post Debridement (cm) - Length 1.5 1.5 -Post Debridement (cm) - Width 1.2 1.3 -Post Debridement (cm) - Depth 0.5 0.6 -Total Square (Post) (cm) 1.80 1.95 -Area of Debridement (cm) - Length 1.5 1.5 -Area of Debridement (cm) - Width 1.2 1.3 -Total Square (Area) (cm) 1.80 1.95 -Tunneling No No -Undermining/Tunneling Yes Yes -Undermining/Tunneling Starts (O'clock 7 7 ) -Undermining/Tunneling Ends (O'clock) 11 11 -Maximum Distance (cm) 1.2 1.1 -Circular Undermining No No -Wound/Ulcer Outcome Not Healed Not Healed -Ulcer Cleansing Rinsed/ Rinsed/ Irrigated with Irrigated with Saline Saline -Foul Odor after Cleansing No No -Bioengineered Tissue No No -Bleeding Controlled with Pressure Pressure -Treatment Response Procedure Procedure Tolerated Well Tolerated Well -Offloading No -Debridement - Subq, 1st 20sq cm Yes Yes Pain Scale: 0-10 Numeric Is Patient Pain Free? Yes Yes - Nurse 3 - General Ulcer D/C NN Start: 01/28/25 09:39 Freq: Status: Active Protocol: Activity Type Activity Date Activity User E-sign Co-sign Detail Recorded Client Recorded Date Recorded By Document 01/28/25 10:29 RI [id number] 01/28/25 10:33 RI 01/28/25 10:29 Wound Care Center Nurse 3 #2 Left lateral Ankle -Ulcer Cleansing Soap and Water -Primary Dressing Applied Aquacel Extra, Silicone Border Foam 4x4 -Other Dressing DAKINS -Aquacel Extra 1 -Silicone Border Foam 4x4 1 #1 Right lateral Ankle -Primary Dressing Applied Aquacel Extra, Silicone Border Foam 4x4 -Primary Dressing Covered/Secured with Dry Gauze & Roll Gauze, Secured with Tape -Aquacel Extra 1 -Silicone Border Foam 4x4 1 Pain Scale: 0-10 Numeric Is Patient Pain Free? Yes WC - Visit Discharge Discharge Condition Stable Ambulatory Status Ambulatory Transportation Private Auto Medication Reconcilliation completed & No provided to patient/care provider Clinical Summary of Care Provided Yes Notes: DRESSING EXPLAINED TO AID Additional Wound Wound debrided: Left ankle Type of Debridement: Excisional debridement Anesthesia Used: 5% Lidocaine Gel Depth: Down to and including healthy tissue and in the subcutaneous layer Percentage of wound debrided: 100 Instrument Used: 3mm curette Tissue Removed: Devitalized tissue Severity: Fat Layer Exposed Amount of bleeding with debridement: Mild Bleeding Controlled with: Pressure Patient tolerated procedure: Patient tolerated procedure well Assessment/Plan Assessment/Plan (1) Non-healing ulcer of left ankle with fat layer exposed: CODE(S): L97.322 - Non-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 While the patient denied any significant pain on examination/debridement, concern for TRUE ulcer erythema and increased maceration. Possible changes to dressing with subsequent skin reaction versus infrequent dressing changes. Communicated with caregiver present who in turn states that she will relay the message to the facility. Some improvement noted on the right however, undermining still present. Due to proximity as detailed at his last visit, will get an MRI to rule out osteomyelitis. Otherwise, continue 30 minutes Dakin's soak, Aquacel extra changing twice daily. Cover with foam dressing/superabsorbent. Continue single-layer Tubigrip for compression and protection. Not a good candidate for hyperbaric oxygen treatment due to significant cognitive impairment. Recommend optimal diabetes control, adequate protein intake and offloading. Offloading boots/foam boots have been recommended. Instructions sent back to facility. They were advised to call with any questions or concerns. This note was generated with [employer] dictation software. It may contain incorrect words, spelling, and punctuation that were not noted in checking the note before signing.
--- NOTE | 2025-02-04 14:12 | WC ---
PHOTO-RIGHT ANKLE 02/04/25
--- NOTE | 2025-02-04 14:15 | WC ---
PHOTO-LEFT ANKLE 02/04/25
[2025-02-11 10:06] VITALS: BP 98/52; PULSE 83; RESP 18; TEMP 36.7
--- NOTE | 2025-02-11 12:04 | PN.PCM_ITS ---
History of Present Illness Date of Service: 02/11/25 Chief Complaint: Bilateral Foot Ulcers. History of Wound: Mr. Howe is a 69 yo referred to the wound center by his vascular surgery PA due to non healing bilateral ankle/foot ulcer. He is a poor historian due to memory impairment/dementia. Currently resides in a nursing facility. Per vascular surgery documentation, right lower extremity ulcer is chronic and left is more recent but has been present for months. Had imaging done including a CTA with no significant focal stenosis and three-vessel runoff. Also recently had repeat lower extremity arterial studies with no significant concerns noted. No indication for vascular intervention per documentation. History of diabetes mellitus type 2, no recent labs Progress of Wound: No new concerns reported at this time. At his last visit, there was concern for [place] - ulcer dermatitis which has shown some improvement at this time.. His caregiver states that she spoke with the nursing staff and they had stated that a new/different dressing was used which he probably reacted to. MRI scheduled for 17 of February Objective Data Objective Data Vital Signs: Vital Signs Temp Pulse Resp BP O2 Del Method 98.1 F 83 18 98/52 L Room Air 02/11/25 10:06 02/11/25 10:06 02/11/25 10:02/11/25 10:06 01/28/25 09:39 Oxygen Delivery Method Room Air Charges/Coding Procedures Integumentary [id number]: [id number] Marilia subq tissue 20 sq cm/< Physical Exam Const alert and no apparent distress General Appearance: cooperative and comfortable HEENT normocephalic and head/scalp atraumatic Eyes EOMs intact bilaterally Neck full ROM General: normal visual inspection Resp normal respiratory effort Effort and Inspection: able to speak in complete sentences Skin Wounds: wounds noted size Size: See clinical note, bed granulating well and with undermining, margins well approximated and surrounding erythema and no odor Neuro CN's II-XII intact bilaterally and moves all extremities Psych cooperative, affect normal and speech normal Debridement Note Debridement Note Wound debrided: Left ankle (lateral) Type of Debridement: Excisional debridement Anesthesia Used: 5% Lidocaine Gel Depth: Down to and including healthy tissue and in the subcutaneous layer Percentage of wound debrided: 100 Instrument Used: 5mm curette Tissue Removed: Slough and devitalized tissue Severity: Fat Layer Exposed Amount of bleeding with debridement: Mild Bleeding Controlled with: Pressure Patient tolerated procedure: Patient tolerated procedure well Post-Debridement Measurements and Additional Note: Post-Debridement Measurements/Treatment WC - Nurse 1 - General Ulcer Assessment Start: 01/28/25 09:39 Freq: Status: Active Protocol: OFE Activity Type Activity Date Activity User E-sign Co-sign Detail Recorded Client Recorded Date Recorded By Document 01/28/25 09:39 MT [id number] 01/28/25 09:53 MT Document 02/04/25 10:28 RB [id number] 02/04/25 10:31 RB Document 02/11/25 10:06 RB [id number] 02/11/25 10:09 RB 01/28/25 02/04/25 02/11/25 09:39 10:28 10:06 - Today's Visit Information Type of service Follow-up Visit Follow-up Visit Follow-up Visit (Physician/CLOTHING CUTTER (Physician/CLOTHING CUTTER (Physician/CLOTHING CUTTER ) ) ) Arrival Mode Wheelchair Ambulatory Wheelchair Transfer Assistance None Manual Accompanied by AID Patient Identification Verified (Name & Yes Yes Yes ) Patient Requires Transmission-Based No No Precautions Safety Precautions Fall Prevention NA Vital Signs Temperature (97.8 F-99.1 F) 97 F L 97.4 F L 98.1 F Temperature Source Temporal Temporal Temporal Pulse Rate (60-100) 76 70 83 Pulse Location Monitor Monitor Monitor Respiratory Rate (12-18) 18 18 18 Respiratory rate source Observation Observation Observation Oxygen Delivery Method Room Air Blood Pressure (90/60-120/80) 114/68 116/69 98/52 L Blood Pressure Mean (mm Hg) 83 84 67 Source Monitor Monitor Monitor Position Sitting Semi-Fowlers Semi-Fowlers Blood Pressure Location Right Arm Left Arm Left Arm History Since Last Visit- (Skip if this is Patient's initial visit) Have you changed medications since your No No last visit? Any new allergies or adverse reactions No No Had a fall/change in ADL's that may No No increase risk of falls Signs or symptoms of abuse and/or No No neglect since last visit Have you been in the hospital since your No No last visit? Has dressing in place as prescribed Yes Yes Yes Has compression in place as prescribed Yes N/A N/A Has offloadiing in place as prescribed Yes No N/A Experienced any changes in pain level or Yes Yes No management Left Footwear Regular Shoe Regular Shoe Right Footwear Regular Shoe Regular Shoe Pain Scale: 0-10 Numeric Is Patient Pain Free? Yes Yes Yes WC - Nurse 1 - General Ulcer Measurement Start: 01/28/25 09:39 Freq: Status: Active Protocol: Activity Type Activity Date Activity User E-sign Co-sign Detail Recorded Client Recorded Date Recorded By Document 01/28/25 09:39 MT [id number] 01/28/25 09:53 MT Document 02/04/25 10:28 RB [id number] 02/04/25 10:31 RB Document 02/11/25 10:06 RB [id number] 02/11/25 10:09 RB 01/28/25 02/04/25 02/11/25 09:39 10:28 10:06 Wound Center Nurse 1 #2 Left lateral Ankle -Combined with other wound No No -Current Size (cm) - Length 1.9 2 1.3 -Current Size (cm) - Width 0.7 0.6 0.7 -Current Size (cm) - Depth 0.1 0.2 0.2 -Total Square Cm 1.33 1.2 0.91 -Date of Last Picture (Recall this 01/28/25 field) -Photo Taken Yes Yes Yes -Tunneling No No No -Undermining/Tunneling No No No -Circular Undermining No No No -Exudate Amt Medium Medium Medium -Exudate Type Serosanguineous Serosanguineous Serosanguineous -Wound Margin Thickened & Distinct, Distinct, Rolled Under Outline Outline Attached Attached -Granulation Amt Large (67-100%) Medium (34-66%) Medium (34-66%) -Granulation Quality Pale,[place] -Slough/Fibrin No Yes Yes -Necrosis Amt Medium (34-66%) Medium (34-66%) -Necrotic Tissue Type Adherent Slough Adherent Slough -Structure Exposed N/A N/A -Texture ([place]-wound Skin Appearance) Assessed Assessed, Assessed Excoriation -Moisture ([place]-wound Skin Appearance) Assessed Assessed Assessed -Color ([place]-wound Skin Appearance) Assessed Erythema, Assessed Hemosiderin Staining -Temperature ([place]-wound Skin No Abnormality No Abnormality No Abnormality Appearance) (Pt Warm) (Pt Warm) (Pt Warm) -Tenderness on Palpation ([place]-wound No No No Skin Appearance) -Ulcer Cleansing Soap and Water Wound Cleanser Wound Cleanser -Foul Odor after Cleansing No No No -Anesthetic Used 5% Lidocaine 5% Lidocaine 5% Lidocaine Gel Gel Gel #1 Right lateral Ankle -Combined with other wound No No -Current Size (cm) - Length 1.9 1.5 1.4 -Current Size (cm) - Width 1.1 1 0.9 -Current Size (cm) - Depth 0.2 0.3 0.2 -Total Square Cm 2.09 1.5 1.26 -Date of Last Picture (Recall this 01/28/25 field) -Photo Taken Yes Yes Yes -Tunneling No No No -Undermining/Tunneling No No No -Circular Undermining No No No -Exudate Amt Medium Medium Medium -Exudate Type Serosanguineous Serosanguineous Serosanguineous -Wound Margin Thickened & Distinct, Distinct, Rolled Under Outline Outline Attached Attached -Granulation Amt Large (67-100%) Medium (34-66%) Medium (34-66%) -Granulation Quality Pale,[place] -Slough/Fibrin No Yes Yes -Necrosis Amt Small (1-33%) Medium (34-66%) Medium (34-66%) -Necrotic Tissue Type Adherent Slough Adherent Slough -Structure Exposed N/A N/A -Texture ([place]-wound Skin Appearance) Assessed Assessed, Assessed, Excoriation Scarring -Moisture ([place]-wound Skin Appearance) Assessed Assessed Assessed -Color ([place]-wound Skin Appearance) Assessed Assessed, Assessed Erythema -Temperature ([place]-wound Skin No Abnormality No Abnormality No Abnormality Appearance) (Pt Warm) (Pt Warm) (Pt Warm) -Tenderness on Palpation ([place]-wound No No No Skin Appearance) -Ulcer Cleansing Soap and Water Wound Cleanser Wound Cleanser -Foul Odor after Cleansing No No No -Anesthetic Used 5% Lidocaine 5% Lidocaine 5% Lidocaine Gel Gel Gel Lower Limb Edema Present NA WC - Nurse 2 - General Ulcer CM Notes Start: 01/28/25 09:39 Freq: Status: Active Protocol: Activity Type Activity Date Activity User E-sign Co-sign Detail Recorded Client Recorded Date Recorded By Document 01/28/25 10:05 [id number] 01/28/25 10:17 Document 02/04/25 10:37 [id number] 02/04/25 10:45 GM Document 02/11/25 10:27 [id number] 02/11/25 10:38 01/28/25 02/04/25 02/11/25 10:05 10:37 10:27 Wound Center Nurse 2 #2 Left lateral Ankle -Time 10:05 10:41 10:29 -Correct Patient Yes Yes Yes -Correct Side, Site, Position Yes Yes Yes -Correct Procedure Yes Yes Yes -Procedure Performed Yes Yes Yes -Type of Procedure Debridement Debridement Debridement -Clinical Debridement Subcutaneous Subcutaneous Subcutaneous -Tissue Removed Subcutaneous Subcutaneous Subcutaneous -Post Debridement (cm) - Length 1.5 1.9 1.9 -Post Debridement (cm) - Width 0.8 0.7 0.7 -Post Debridement (cm) - Depth 0.1 0.1 0.1 -Total Square (Post) (cm) 1.20 1.33 1.33 -Area of Debridement (cm) - Length 1.5 1.9 1.9 -Area of Debridement (cm) - Width 0.8 0.7 0.7 -Total Square (Area) (cm) 1.20 1.33 1.33 -Tunneling No No No -Undermining/Tunneling No No No -Circular Undermining No No No -Wound/Ulcer Outcome Not Healed Not Healed Not Healed -Ulcer Cleansing Rinsed/ Rinsed/ Rinsed/ Irrigated with Irrigated with Irrigated with Saline Saline Saline -Foul Odor after Cleansing No No No -Bioengineered Tissue No No No -Bleeding Controlled with Pressure Pressure Pressure -Treatment Response Procedure Procedure Procedure Tolerated Well Tolerated Well Tolerated Well -Offloading No No No -Assistive Device(s) Wheelchair -Debridement - Subq, 1st 20sq cm No No No #1 Right lateral Ankle -Time 10:06 10:37 10:29 -Correct Patient Yes Yes Yes -Correct Side, Site, Position Yes Yes Yes -Correct Procedure Yes Yes Yes -Procedure Performed Yes Yes Yes -Type of Procedure Debridement Debridement Debridement -Clinical Debridement Subcutaneous Subcutaneous Subcutaneous -Tissue Removed Subcutaneous Subcutaneous Subcutaneous -Post Debridement (cm) - Length 1.5 1.5 1.5 -Post Debridement (cm) - Width 1.2 1.3 0.9 -Post Debridement (cm) - Depth 0.5 0.6 0.1 -Total Square (Post) (cm) 1.80 1.95 1.35 -Area of Debridement (cm) - Length 1.5 1.5 1.5 -Area of Debridement (cm) - Width 1.2 1.3 0.9 -Total Square (Area) (cm) 1.80 1.95 1.35 -Tunneling No No Yes -Tunneling Position (O'clock) 12 -Tunneling Distance (cm) 0.4 -Undermining/Tunneling Yes Yes Yes -Undermining/Tunneling Starts (O'clock 7 7 8 ) -Undermining/Tunneling Ends (O'clock) 11 11 12 -Maximum Distance (cm) 1.2 1.1 1.0 -Circular Undermining No No No -Wound/Ulcer Outcome Not Healed Not Healed Not Healed -Ulcer Cleansing Rinsed/ Rinsed/ Rinsed/ Irrigated with Irrigated with Irrigated with Saline Saline Saline -Foul Odor after Cleansing No No No -Bioengineered Tissue No No No -Bleeding Controlled with Pressure Pressure Pressure -Treatment Response Procedure Procedure Procedure Tolerated Well Tolerated Well Tolerated Well -Offloading No No -Debridement - Subq, 1st 20sq cm Yes Yes Yes Pain Scale: 0-10 Numeric Is Patient Pain Free? Yes Yes Yes - Nurse 3 - General Ulcer D/C NN Start: 01/28/25 09:39 Freq: Status: Active Protocol: Activity Type Activity Date Activity User E-sign Co-sign Detail Recorded Client Recorded Date Recorded By Document 01/28/25 10:29 WI [id number] 01/28/25 10:33 WI Document 02/04/25 11:21 RB [id number] 02/04/25 11:22 RB Document 02/11/25 10:55 RB [id number] 02/11/25 10:56 RB 01/28/25 02/04/25 02/11/25 10:29 11:21 10:55 Wound Care Center Nurse 3 #2 Left lateral Ankle -Ulcer Cleansing Soap and Water Rinsed/ Irrigated with Saline -Primary Dressing Applied Aquacel Extra, Aquacel Extra, Aquacel Extra, Silicone Border Silicone Border Silicone Border Foam 4x4 Foam 4x4 Foam 4x4 -Other Dressing DAKINS -Aquacel Extra 1 1 1 -Silicone Border Foam 4x4 1 1 1 #1 Right lateral Ankle -Ulcer Cleansing Rinsed/ Irrigated with Saline -Primary Dressing Applied Aquacel Extra, Silicone Border Silicone Border Silicone Border Foam 4x4 Foam 4x4 Foam 4x4 -Other Dressing AQUACEL EXTRA aquacel extra -Primary Dressing Covered/Secured with Dry Gauze & Roll Gauze, Secured with Tape -Aquacel Extra 1 -Silicone Border Foam 4x4 1 1 1 BLE -Tubular Bandage Single Layer -Size of Tubigrip Used Size E -Size E ($) 2 Treatment Response Procedure Procedure Tolerated Well Tolerated Well Pain Scale: 0-10 Numeric Is Patient Pain Free? Yes Yes Yes WC - Visit Discharge Discharge Condition Stable Stable Stable Ambulatory Status Ambulatory Wheelchair Wheelchair Transportation Private [facility] Accompanied by AIDE FROM [place] aide Medication Reconcilliation completed & No No No provided to patient/care provider Clinical Summary of Care Provided Yes Yes Yes Notes: DRESSING EXPLAINED TO AID Additional Wound Wound debrided: Right lateral ankle Type of Debridement: Excisional debridement Anesthesia Used: 5% Lidocaine Gel Depth: Down to and including healthy tissue and in the subcutaneous layer Percentage of wound debrided: 100 Instrument Used: 5mm curette Tissue Removed: Slough and devitalized tissue Severity: Fat Layer Exposed Amount of bleeding with debridement: Mild Bleeding Controlled with: Pressure Patient tolerated procedure: Patient tolerated procedure well Assessment/Plan Assessment/Plan (1) Non-healing ulcer of left ankle with fat layer exposed: CODE(S): L97.322 - Non-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 No acute concerns reported at this time. [place] ulcer erythema has improved but still present. Maceration also largely resolved. MRI scheduled for the . Both ulcers did show some improvement, undermining still present on the right with palpable tenderness to the surrounding area which is not new. Continue 30 minutes Dakin's soak, Aquacel extra changing twice daily. Cover with foam dressing/superabsorbent. Again, instructions sent to pack undermining. Contin ue single-layer Tubigrip for compression and protection. Not a good candidate for hyperbaric oxygen treatment due to significant cognitive impairment. Recommend optimal diabetes control, adequate protein intake and offloading. Offloading boots/foam boots have been recommended. Instructions sent back to facility. They were advised to call with any questions or concerns. Follow-up in a week or sooner if needed. This note was generated with [email or web address] dictation software. It may contain incorrect words, spelling, and punctuation that were not noted in checking the note before signing.
[2025-02-18 09:20] VITALS: BP 114/69; PULSE 98; RESP 15; TEMP 36.4
--- NOTE | 2025-02-18 10:25 | PCM.WC.PN ---
History of Present Illness Date of Service: 02/18/25 Chief Complaint: Bilateral Foot Ulcers. History of Wound: Mr. Howe is a 69 yo referred to the wound center by his vascular surgery PA due to non healing bilateral ankle/foot ulcer. He is a poor historian due to memory impairment/dementia. Currently resides in a nursing facility. Per vascular surgery documentation, right lower extremity ulcer is chronic and left is more recent but has been present for months. Had imaging done including a CTA with no significant focal stenosis and three-vessel runoff. Also recently had repeat lower extremity arterial studies with no significant concerns noted. No indication for vascular intervention per documentation. History of diabetes mellitus type 2, no recent labs Progress of Wound: No acute concerns reported by the caregiver present during visit today or the patient however, history typically limited from the patient due to dementia. He does however report pain/tenderness on examination. Had an MRI done yesterday, official results still pending. Objective Data Objective Data Vital Signs: Vital Signs Temp Pulse Resp BP O2 Del Method 97.6 F L 98 15 114/69 Room Air 02/18/25 09:20 02/18/25 09:20 02/18/25 09:20 02/18/25 09:20 01/28/25 09:39 Oxygen Delivery Method Room Air Charges/Coding Procedures Integumentary [id number]: [id number] Marilia subq tissue 20 sq cm/< Physical Exam Const alert and no apparent distress General Appearance: cooperative and comfortable HEENT normocephalic and head/scalp atraumatic Eyes EOMs intact bilaterally Neck full ROM General: normal visual inspection Resp normal respiratory effort Effort and Inspection: able to speak in complete sentences Skin Wounds: wounds noted size Size: See clinical note, bed beefy red and with undermining, margins macerated, rolled under edges, well approximated and surrounding erythema, no odor and surrounding erythema Neuro CN's II-XII intact bilaterally and moves all extremities Psych cooperative, affect normal and speech normal Debridement Note Debridement Note Wound debrided: Right ankle (lateral) Type of Debridement: Excisional debridement Anesthesia Used: 5% Lidocaine Gel Depth: Down to and including healthy tissue and in the subcutaneous layer Percentage of wound debrided: 100 Instrument Used: 5mm curette Tissue Removed: Devitalized tissue Severity: Fat Layer Exposed Amount of bleeding with debridement: Mild Bleeding Controlled with: Pressure Patient tolerated procedure: Patient tolerated procedure well Post-Debridement Measurements and Additional Note: Post-Debridement Measurements/Treatment JOIE - Nurse 1 - General Ulcer Assessment Start: 01/28/25 09:39 Freq: Status: Active Protocol: OFE Activity Type Activity Date Activity User E-sign Co-sign Detail Recorded Client Recorded Date Recorded By Document 01/28/25 09:39 MT [id number] 01/28/25 09:53 MT Document 02/04/25 10:28 RB [id number] 02/04/25 10:31 RB Document 02/11/25 10:06 RB [id number] 02/11/25 10:09 RB Document 02/18/25 09:20 ML [id number] 02/18/25 09:28 ML 01/28/25 02/04/25 02/11/25 09:39 10:28 10:06 - Today's Visit Information Type of service Follow-up Visit Follow-up Visit Follow-up Visit (Physician/HOSPITALIST PROGRAM DIRECTOR (Physician/HOSPITALIST PROGRAM DIRECTOR (Physician/HOSPITALIST PROGRAM DIRECTOR ) ) ) Arrival Mode Wheelchair Ambulatory Wheelchair Transfer Assistance None Manual Accompanied by AID Patient Identification Verified (Name & Yes Yes Yes ) Patient Requires Transmission-Based No No Precautions Safety Precautions Fall Prevention NA Vital Signs Temperature (97.8 F-99.1 F) 97 F L 97.4 F L 98.1 F Temperature Source Temporal Temporal Temporal Pulse Rate (60-100) 76 70 83 Pulse Location Monitor Monitor Monitor Respiratory Rate (12-18) 18 18 18 Respiratory rate source Observation Observation Observation Oxygen Delivery Method Room Air Blood Pressure (90/60-120/80) 114/68 116/69 98/52 L Blood Pressure Mean (mm Hg) 83 84 67 Source Monitor Monitor Monitor Position Sitting Semi-Fowlers Semi-Fowlers Blood Pressure Location Right Arm Left Arm Left Arm History Since Last Visit- (Skip if this is Patient's initial visit) Have you changed medications since your No No last visit? Any new allergies or adverse reactions No No Had a fall/change in ADL's that may No No increase risk of falls Signs or symptoms of abuse and/or No No neglect since last visit Have you been in the hospital since your No No last visit? Has dressing in place as prescribed Yes Yes Yes Has compression in place as prescribed Yes N/A N/A Has offloadiing in place as prescribed Yes No N/A Experienced any changes in pain level or Yes Yes No management Left Footwear Regular Shoe Regular Shoe Right Footwear Regular Shoe Regular Shoe Pain Scale: 0-10 Numeric Is Patient Pain Free? Yes Yes Yes 02/18/25 09:20 - Today's Visit Information Type of service Follow-up Visit (Physician/HOSPITALIST PROGRAM DIRECTOR ) Arrival Mode Wheelchair Transfer Assistance None Accompanied by Patient Identification Verified (Name & Yes ) Patient Requires Transmission-Based No Precautions Safety Precautions Vital Signs Temperature (97.8 F-99.1 F) 97.6 F L Temperature Source Temporal Pulse Rate (60-100) 98 Pulse Location Monitor Respiratory Rate (12-18) 15 Respiratory rate source Observation Oxygen Delivery Method Blood Pressure (90/60-120/80) 114/69 Blood Pressure Mean (mm Hg) 84 Source Monitor Position Sitting Blood Pressure Location Left Arm History Since Last Visit- (Skip if this is Patient's initial visit) Have you changed medications since your No last visit? Any new allergies or adverse reactions No Had a fall/change in ADL's that may No increase risk of falls Signs or symptoms of abuse and/or No neglect since last visit Have you been in the hospital since your No last visit? Has dressing in place as prescribed Yes Has compression in place as prescribed Yes Has offloadiing in place as prescribed N/A Experienced any changes in pain level or No management Left Footwear Right Footwear Pain Scale: 0-10 Numeric Is Patient Pain Free? Yes - Nurse 1 - General Ulcer Measurement Start: 01/28/25 09:39 Freq: Status: Active Protocol: Activity Type Activity Date Activity User E-sign Co-sign Detail Recorded Client Recorded Date Recorded By Document 01/28/25 09:39 MT [id number] 01/28/25 09:53 MT Document 02/04/25 10:28 RB [id number] 02/04/25 10:31 RB Document 02/11/25 10:06 RB [id number] 02/11/25 10:09 RB Document 02/18/25 09:44 JM [id number] 02/18/25 09:50 01/28/25 02/04/25 02/11/25 09:39 10:28 10:06 Wound Center Nurse 1 #2 Left lateral Ankle -Combined with other wound No No -Current Size (cm) - Length 1.9 2 1.3 -Current Size (cm) - Width 0.7 0.6 0.7 -Current Size (cm) - Depth 0.1 0.2 0.2 -Total Square Cm 1.33 1.2 0.91 -Date of Last Picture (Recall this 01/28/25 field) -Photo Taken Yes Yes Yes -Tunneling No No No -Undermining/Tunneling No No No -Circular Undermining No No No -Exudate Amt Medium Medium Medium -Exudate Type Serosanguineous Serosanguineous Serosanguineous -Wound Margin Thickened & Distinct, Distinct, Rolled Under Outline Outline Attached Attached -Granulation Amt Large (67-100%) Medium (34-66%) Medium (34-66%) -Granulation Quality Pale,[place],Red [place] -Slough/Fibrin No Yes Yes -Necrosis Amt Medium (34-66%) Medium (34-66%) -Necrotic Tissue Type Adherent Slough Adherent Slough -Structure Exposed N/A N/A -Texture ([place]-wound Skin Appearance) Assessed Assessed, Assessed Excoriation -Moisture ([place]-wound Skin Appearance) Assessed Assessed Assessed -Color ([place]-wound Skin Appearance) Assessed Erythema, Assessed Hemosiderin Staining -Temperature ([place]-wound Skin No Abnormality No Abnormality No Abnormality Appearance) (Pt Warm) (Pt Warm) (Pt Warm) -Tenderness on Palpation ([place]-wound No No No Skin Appearance) -Ulcer Cleansing Soap and Water Wound Cleanser Wound Cleanser -Foul Odor after Cleansing No No No -Anesthetic Used 5% Lidocaine 5% Lidocaine 5% Lidocaine Gel Gel Gel #1 Right lateral Ankle -Combined with other wound No No -Current Size (cm) - Length 1.9 1.5 1.4 -Current Size (cm) - Width 1.1 1 0.9 -Current Size (cm) - Depth 0.2 0.3 0.2 -Total Square Cm 2.09 1.5 1.26 -Date of Last Picture (Recall this 01/28/25 field) -Photo Taken Yes Yes Yes -Tunneling No No No -Undermining/Tunneling No No No -Circular Undermining No No No -Exudate Amt Medium Medium Medium -Exudate Type Serosanguineous Serosanguineous Serosanguineous -Wound Margin Thickened & Distinct, Distinct, Rolled Under Outline Outline Attached Attached -Granulation Amt Large (67-100%) Medium (34-66%) Medium (34-66%) -Granulation Quality Pale,[place],Red [place] -Slough/Fibrin No Yes Yes -Necrosis Amt Small (1-33%) Medium (34-66%) Medium (34-66%) -Necrotic Tissue Type Adherent Slough Adherent Slough -Structure Exposed N/A N/A -Texture ([place]-wound Skin Appearance) Assessed Assessed, Assessed, Excoriation Scarring -Moisture ([place]-wound Skin Appearance) Assessed Assessed Assessed -Color ([place]-wound Skin Appearance) Assessed Assessed, Assessed Erythema -Temperature ([place]-wound Skin No Abnormality No Abnormality No Abnormality Appearance) (Pt Warm) (Pt Warm) (Pt Warm) -Tenderness on Palpation ([place]-wound No No No Skin Appearance) -Ulcer Cleansing Soap and Water Wound Cleanser Wound Cleanser -Foul Odor after Cleansing No No No -Anesthetic Used 5% Lidocaine 5% Lidocaine 5% Lidocaine Gel Gel Gel Lower Limb Edema Present NA 02/18/25 09:44 Wound Center Nurse 1 #2 Left lateral Ankle -Combined with other wound -Current Size (cm) - Length 1.5 -Current Size (cm) - Width 1.1 -Current Size (cm) - Depth 0.1 -Total Square Cm 1.65 -Date of Last Picture (Recall this 02/18/25 field) -Photo Taken Yes -Tunneling No -Undermining/Tunneling No -Circular Undermining No -Exudate Amt Small -Exudate Type Serosanguineous -Wound Margin Thickened & Rolled Under -Granulation Amt Large (67-100%) -Granulation Quality Red -Slough/Fibrin Yes -Necrosis Amt Small (1-33%) -Necrotic Tissue Type Adherent Slough -Structure Exposed None/Limited to Skin Breakdown -Texture ([place]-wound Skin Appearance) Assessed, Localized Edema -Moisture ([place]-wound Skin Appearance) No Abnormality, Assessed -Color ([place]-wound Skin Appearance) Assessed -Temperature ([place]-wound Skin No Abnormality Appearance) (Pt Warm) -Tenderness on Palpation ([place]-wound No Skin Appearance) -Ulcer Cleansing Soap and Water -Foul Odor after Cleansing No -Anesthetic Used 5% Lidocaine Gel #1 Right lateral Ankle -Combined with other wound -Current Size (cm) - Length 2 -Current Size (cm) - Width 2 -Current Size (cm) - Depth 0.2 -Total Square Cm 4 -Date of Last Picture (Recall this 02/18/25 field) -Photo Taken Yes -Tunneling No -Undermining/Tunneling No -Circular Undermining Yes -Exudate Amt Medium -Exudate Type Serosanguineous -Wound Margin Thickened & Rolled Under -Granulation Amt Small (1-33%) -Granulation Quality Red -Slough/Fibrin -Necrosis Amt Large (67-100%) -Necrotic Tissue Type Adherent Slough -Structure Exposed -Texture ([place]-wound Skin Appearance) Assessed -Moisture ([place]-wound Skin Appearance) -Color ([place]-wound Skin Appearance) Assessed -Temperature ([place]-wound Skin No Abnormality Appearance) (Pt Warm) -Tenderness on Palpation ([place]-wound No Skin Appearance) -Ulcer Cleansing Soap and Water -Foul Odor after Cleansing No -Anesthetic Used 5% Lidocaine Gel Lower Limb Edema Present WC - Nurse 2 - General Ulcer CM Notes Start: 01/28/25 09:39 Freq: Status: Active Protocol: Activity Type Activity Date Activity User E-sign Co-sign Detail Recorded Client Recorded Date Recorded By Document 01/28/25 10:05 [id number] 01/28/25 10:17 Document 02/04/25 10:37 [id number] 02/04/25 10:45 Document 02/11/25 10:27 [id number] 02/11/25 10:38 Document 02/18/25 09:57 [id number] 02/18/25 10:05 01/28/25 02/04/25 02/11/25 10:05 10:37 10:27 Wound Center Nurse 2 #2 Left lateral Ankle -Time 10:05 10:41 10:29 -Correct Patient Yes Yes Yes -Correct Side, Site, Position Yes Yes Yes -Correct Procedure Yes Yes Yes -Procedure Performed Yes Yes Yes -Type of Procedure Debridement Debridement Debridement -Clinical Debridement Subcutaneous Subcutaneous Subcutaneous -Tissue Removed Subcutaneous Subcutaneous Subcutaneous -Post Debridement (cm) - Length 1.5 1.9 1.9 -Post Debridement (cm) - Width 0.8 0.7 0.7 -Post Debridement (cm) - Depth 0.1 0.1 0.1 -Total Square (Post) (cm) 1.20 1.33 1.33 -Area of Debridement (cm) - Length 1.5 1.9 1.9 -Area of Debridement (cm) - Width 0.8 0.7 0.7 -Total Square (Area) (cm) 1.20 1.33 1.33 -Tunneling No No No -Undermining/Tunneling No No No -Circular Undermining No No No -Wound/Ulcer Outcome Not Healed Not Healed Not Healed -Ulcer Cleansing Rinsed/ Rinsed/ Rinsed/ Irrigated with Irrigated with Irrigated with Saline Saline Saline -Foul Odor after Cleansing No No No -Bioengineered Tissue No No No -Bleeding Controlled with Pressure Pressure Pressure -Treatment Response Procedure Procedure Procedure Tolerated Well Tolerated Well Tolerated Well -Offloading No No No -Assistive Device(s) Wheelchair -Debridement - Subq, 1st 20sq cm No No No #1 Right lateral Ankle -Time 10:06 10:37 10:29 -Correct Patient Yes Yes Yes -Correct Side, Site, Position Yes Yes Yes -Correct Procedure Yes Yes Yes -Procedure Performed Yes Yes Yes -Type of Procedure Debridement Debridement Debridement -Clinical Debridement Subcutaneous Subcutaneous Subcutaneous -Tissue Removed Subcutaneous Subcutaneous Subcutaneous -Post Debridement (cm) - Length 1.5 1.5 1.5 -Post Debridement (cm) - Width 1.2 1.3 0.9 -Post Debridement (cm) - Depth 0.5 0.6 0.1 -Total Square (Post) (cm) 1.80 1.95 1.35 -Area of Debridement (cm) - Length 1.5 1.5 1.5 -Area of Debridement (cm) - Width 1.2 1.3 0.9 -Total Square (Area) (cm) 1.80 1.95 1.35 -Tunneling No No Yes -Tunneling Position (O'clock) 12 -Tunneling Distance (cm) 0.4 -Undermining/Tunneling Yes Yes Yes -Undermining/Tunneling Starts (O'clock 7 7 8 ) -Undermining/Tunneling Ends (O'clock) 11 11 12 -Maximum Distance (cm) 1.2 1.1 1.0 -Circular Undermining No No No -Wound/Ulcer Outcome Not Healed Not Healed Not Healed -Ulcer Cleansing Rinsed/ Rinsed/ Rinsed/ Irrigated with Irrigated with Irrigated with Saline Saline Saline -Foul Odor after Cleansing No No No -Bioengineered Tissue No No No -Bleeding Controlled with Pressure Pressure Pressure -Treatment Response Procedure Procedure Procedure Tolerated Well Tolerated Well Tolerated Well -Offloading No No -Debridement - Subq, 20sq cm Yes Yes Yes Pain Scale: 0-10 Numeric Is Patient Pain Free? Yes Yes Yes 02/18/25 09:57 Wound Center Nurse 2 #2 Left lateral Ankle -Time 09:58 -Correct Patient Yes -Correct Side, Site, Position Yes -Correct Procedure Yes -Procedure Performed Yes -Type of Procedure Debridement -Clinical Debridement Subcutaneous -Tissue Removed Subcutaneous -Post Debridement (cm) - Length 2 -Post Debridement (cm) - Width 1.2 -Post Debridement (cm) - Depth 0.1 -Total Square (Post) (cm) 2.4 -Area of Debridement (cm) - Length 2 -Area of Debridement (cm) - Width 1.2 -Total Square (Area) (cm) 2.4 -Tunneling No -Undermining/Tunneling No -Circular Undermining No -Wound/Ulcer Outcome Not Healed -Ulcer Cleansing Rinsed/ Irrigated with Saline -Foul Odor after Cleansing No -Bioengineered Tissue No -Bleeding Controlled with Pressure -Treatment Response Procedure Tolerated Well -Offloading No -Assistive Device(s) -Debridement - Subq, 20sq cm Yes #1 Right lateral Ankle -Time 10:02 -Correct Patient Yes -Correct Side, Site, Position Yes -Correct Procedure Yes -Procedure Performed Yes -Type of Procedure Debridement -Clinical Debridement Subcutaneous -Tissue Removed Subcutaneous -Post Debridement (cm) - Length 1.3 -Post Debridement (cm) - Width 1.5 -Post Debridement (cm) - Depth 1 -Total Square (Post) (cm) 1.95 -Area of Debridement (cm) - Length 1.3 -Area of Debridement (cm) - Width 1.5 -Total Square (Area) (cm) 1.95 -Tunneling No -Tunneling Position (O'clock) -Tunneling Distance (cm) -Undermining/Tunneling Yes -Undermining/Tunneling Starts (O'clock 9 ) -Undermining/Tunneling Ends (O'clock) 1 -Maximum Distance (cm) 0.6 -Circular Undermining No -Wound/Ulcer Outcome Not Healed -Ulcer Cleansing Rinsed/ Irrigated with Saline -Foul Odor after Cleansing No -Bioengineered Tissue No -Bleeding Controlled with Pressure -Treatment Response Procedure Tolerated Well -Offloading No -Debridement - Subq, 20sq cm No Pain Scale: 0-10 Numeric Is Patient Pain Free? Yes - Nurse 3 - General Ulcer D/C NN Start: 01/28/25 09:39 Freq: Status: Active Protocol: Activity Type Activity Date Activity User E-sign Co-sign Detail Recorded Client Recorded Date Recorded By Document 01/28/25 10:29 MT [id number] 01/28/25 10:33 MT Document 02/04/25 11:21 RB [id number] 02/04/25 11:22 RB Document 02/11/25 10:55 RB [id number] 02/11/25 10:56 RB 01/28/25 02/04/25 02/11/25 10:29 11:21 10:55 Wound Care Center Nurse 3 #2 Left lateral Ankle -Ulcer Cleansing Soap and Water Rinsed/ Irrigated with Saline -Primary Dressing Applied Aquacel Extra, Aquacel Extra, Aquacel Extra, Silicone Border Silicone Border Silicone Border Foam 4x4 Foam 4x4 Foam 4x4 -Other Dressing DAKINS -Aquacel Extra 1 1 1 -Silicone Border Foam 4x4 1 1 1 #1 Right lateral Ankle -Ulcer Cleansing Rinsed/ Irrigated with Saline -Primary Dressing Applied Aquacel Extra, Silicone Border Silicone Border Silicone Border Foam 4x4 Foam 4x4 Foam 4x4 -Other Dressing AQUACEL EXTRA aquacel extra -Primary Dressing Covered/Secured with Dry Gauze & Roll Gauze, Secured with Tape -Aquacel Extra 1 -Silicone Border Foam 4x4 1 1 1 BLE -Tubular Bandage Single Layer -Size of Tubigrip Used Size E -Size E ($) 2 Treatment Response Procedure Procedure Tolerated Well Tolerated Well Pain Scale: 0-10 Numeric Is Patient Pain Free? Yes Yes Yes - Visit Discharge Discharge Condition Stable Stable Stable Ambulatory Status Ambulatory Wheelchair Wheelchair Transportation [facility] Accompanied by AIDE FROM CT aide Medication Reconcilliation completed & No No No provided to patient/care provider Clinical Summary of Care Provided Yes Yes Yes Notes: DRESSING EXPLAINED TO AID Additional Wound Wound debrided: Left ankle (lateral) Type of Debridement: Excisional debridement Depth: Down to and including healthy tissue and in the subcutaneous layer Percentage of wound debrided: 100 Instrument Used: 5mm curette Tissue Removed: Devitalized tissue Severity: Fat Layer Exposed Amount of bleeding with debridement: Mild Bleeding Controlled with: Pressure Patient tolerated procedure: Patient tolerated procedure well Assessment/Plan Assessment/Plan (1) Non-healing ulcer of left ankle with fat layer exposed: CODE(S): L97.322 - Non-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 Concern for worsening on the right. [place] ulcer edema, erythema and significant tenderness. As above, MRI results still pending however clinical concern for osteomyelitis. It appears that he is no longer taking his antibiotics previously prescribed, new prescription sent and will extend for 2 weeks. May benefit from a bone biopsy so will refer to podiatry. For now, continue 30 minutes Dakin's soak, Aquacel extra changing twice daily. Cover with foam dressing/superabsorbent. Again,instructions sent to pack undermining. Continue single-layer Tubigrip for compression and protection. Not a good candidate for hyperbaric oxygen treatment due to significant cognitive impairment. Recommend optimal diabetes control, adequate protein intake and offloading. Offloading boots/foam boots have been recommended. Discussed with caregiver present, though there is clinical concern for worsening of his right lateral ankle ulcer, his vitals are stable as documented elsewhere. Caregiver was advised that if there is any change in his vitals or worsening is noted to his ulcer, recommend ER evaluation. She voiced understanding and instructions also sent back to facility. They were advised to call with any questions or concerns. Follow-up with podiatry in 1 week as above. This note was generated with [employer] dictation software. It may contain incorrect words, spelling, and punctuation that were not noted in checking the note before signing.
== END 2025-02-23 23:59 | disposition home or self-care (01) ==
LOC: WC 09:30
PROVIDERS: PCP Internal Medicine; Referring Provider Physician Assistant; Visit Provider Internal Medicine
DX: E11.621 Type 2 diabetes mellitus with foot ulcer (principal); L97.322 Non-pressure chronic ulcer of left ankle with fat layer exposed; L97.312 Non-pressure chronic ulcer of right ankle with fat layer exposed; F03.90 Unspecified dementia, unspecified severity, without behavioral disturbance, psychotic disturbance, mood disturbance, and anxiety; R53.81 Other malaise; R41.3 Other amnesia
CPT/HCPCS: 11042

== ENCOUNTER 2025-03-24 09:15 | Outpatient (RCR) | payer MEDICARE, MEDICAID, SELFPAY ==
[2025-02-24 10:38] VITALS: BP 112/66; PULSE 79; RESP 16; TEMP 36.7
--- NOTE | 2025-02-24 14:30 | HP.PCM_ITS ---
History of Present Illness Date of Service: 02/24/25 Chief Complaint: Bilateral Foot Ulcers. History of Wound: Mr. Howe is a 69 yo referred to the wound center by his vascular surgery PA due to non healing bilateral ankle/foot ulcer. He is a poor historian due to memory impairment/dementia. Currently resides in a nursing facility. Per vascular surgery documentation, right lower extremity ulcer is chronic and left is more recent but has been present for months. Had imaging done including a CTA with no significant focal stenosis and three-vessel runoff. Also recently had repeat lower extremity arterial studies with no significant concerns noted. No indication for vascular intervention per documentation. History of diabetes mellitus type 2, no recent labs Progress of Wound: Patient is a 69-year-old diabetic male presenting to wound care center today follow-up evaluation of full-thickness wounds to the lateral ankles bilateral. Patient was seen in outside provider who has been treating the patient with excisional debridements as well as oral antibiotics. The patient is currently on Augmentin and taking it as prescribed. He is using offloading pillows at his senior care facility. MRI was performed that shows concern for possible underlying osteomyelitis to the lateral malleolus of the right lower extremity. Patient states there is pain especially with debridement touch. He is doing dressing changes per previous providers orders. CTA was done that shows no evidence of significant focal stenosis with three-vessel runoff. Overall the patient is doing well. He denies any trauma. Denies constitutional symptoms. No other pedal complaints at this time. [facility] Medical History MRSA (methicillin resistant Staphylococcus aureus) infection Debility Memory impairment Non-healing ulcer of right ankle with fat layer exposed Non-healing ulcer of left ankle with fat layer exposed Obesity History of alcohol abuse Diabetes mellitus Vitamin D deficiency Hyperlipidemia Hypertension Benign paroxysmal vertigo CKD (chronic kidney disease) stage 2, GFR 60-89 ml/min CAD (coronary artery disease) Home Medications Medication Instructions Recorded Last Taken Type losartan 50 mg tablet 50 mg PO DAILY bp 07/27/19 0 07/27/19 History folic acid 1 mg tablet 1 mg PO DAILY vitamin defici ency 12/20/20 Unknown History insulin glargine 100 unit/mL (3 38 unit subcut DAILY d iabetes 12/20/20 Unknown History mL) subcutaneous pen (Lantus Solostar U-100 Insulin) insulin lispro 100 unit/mL 7 unit subcut LUNCH diabete s 12/20/20 Unknown History subcutaneous pen (Humalog KwikPen (U-100) Insulin) aspirin 81 mg capsule 81 mg PO DAILY 03/10/22 Unkn own History bisacodyl 10 mg rectal suppository 10 mg FL DAILY PRN Constipation 03/10/22 Unknown History (Dulcolax (bisacodyl)) ezetimibe 10 mg tablet (Zetia) 10 mg PO QHS diabetes 1 Unknown History insulin lispro 100 unit/mL 15 unit subcut BID diabetes 03/10/22 Unknown History subcutaneous pen (Humalog KwikPen (U-100) Insulin) melatonin 3 mg capsule 3 mg PO QHS insomnia 2 Unknown History acetaminophen 325 mg tablet 650 mg (2 x 325 mg) PO Q4H PRN PRN 03/13/22 Unknown Rx (Tylenol) Fever, pain 1-03/05 #0 tabs albuterol sulfate 2.5 mg/3 mL 2.5 mg (3 mL) inhalation Q2H PRN 03/13/22 Unknown Rx (0.083 %) solution for nebulization PRN Dyspnea, wheez ing #0 mL aluminum-mag hydroxide-simethicone 30 ml PO Q6H PRN FL N Gastric 03/13/22 Unknown Rx 400 mg-400 mg-40 mg/5 mL oral susp Burning #0 mL (Mag-Al Plus Extra Strength) famotidine 20 mg tablet 20 mg PO BID #0 tabs 2 Unknown Rx insulin lispro 100 unit/mL See Protocol subcut ACHS #0 mL 03/13/22 Unknown Rx subcutaneous pen (Humalog KwikPen (U-100) Insulin) menthol 0.44 %-zinc oxide 20.6 % 1 applic topical BID #0 grams 03/13/22 Unknown Rx topical ointment (Calmoseptine) atorvastatin 10 mg tablet 10 mg PO QDAY 09/08/24 Unkno wn History clopidogrel 75 mg tablet (Plavix) 75 mg PO QDAY Unknown History donepezil 10 mg tablet 10 mg PO QHS 09/08/24 Unknow n History menthol 0.44 %-zinc oxide 20.6 % 1 applic topical 4-6X D PRN skin 09/08/24 Unknown History topical ointment (Calmoseptine) irritation allopurinol 100 mg tablet 200 mg PO QDAY 10/13/24 Unkn own History dulaglutide 4.5 mg/0.5 mL 4.5 mg subcut DAILY 10/13/24 Unknown History subcutaneous pen injector (Trulicity) furosemide 40 mg tablet 40 mg PO BID 10/13/24 Unknow n History memantine 10 mg tablet (Namenda) 10 mg PO BID 10/13/24 Unknown History metformin 850 mg tablet 850 mg PO .HS 10/13/24 Unkno wn History nystatin 100,000 unit/gram topical 1 applic topical Unknown History powder (Klayesta) tamsulosin 0.4 mg capsule 0.4 mg PO QHS 10/13/24 Unkno wn History Allergy/AdvReac Type Severity Reaction Status Date / Time Ybduhry-KSA-CmE Reductase Allergy Swelling Verified 10/13/24 11:26 Inhibitor (Xsuiczd-Fbh-Gvt of joints Reductase Inhibitor) Family History Father Heart disease Surgical History S/P appendectomy S/P coronary angioplasty Hx of CABG Social History housing: penitentiary Smoking Status: Former smoker alcohol intake: former substance use type: does not use Vital Signs Vital Signs Vital Signs: 02/24/25 10:38 Temperature 98.1 F Temperature Source Temporal Pulse Rate 79 Respiratory Rate 16 Blood Pressure 112/66 Blood Pressure Mean 81 Blood Pressure Source Monitor Blood Pressure Position Semi-Fowlers Blood Pressure Location Right Arm Oxygen Delivery Method Room Air Physical Exam Narrative Vascular: DP and PT pulses are palpable. CFT is brisk. Skin temp gradient is warm to warm from proximal ankles to distal digits to the bilateral lower extremity. Blanchable erythema appreciated to the periwound to the bilateral lower extremity lateral ankle full-thickness wounds. Neurological: Light touch is intact. Patient does respond to painful stimuli. Dermatological: Full-thickness wound to the lateral right ankle measuring 1.7 x 1.8 x 0.3 cm. Evidence of undermining to the 11:00 approximately 0.3 cm. Wound base is granular with negative probe to bone. There is evidence of hyperkeratotic periwound. Negative probe to bone. Evidence of full-thickness wound to the lateral left ankle measuring 1.8 x 1.4 x 0.1 cm. Wound base is granular with no sign of infection. Negative probe to bone. Excisional debridement down to and including subcutaneous tissue, fascia and muscle of the right full-thickness wound to the right lateral ankle done with a number 3 mm dermal curette without incident. Predebridement measurement was 1.5 x 1.7 x 0.2 cm. Postdebridement measurement is 1.7 x 1.8 x 0.3 cm. Excisional debridement down to including subcutaneous tissue with a number 3 mm dermal curette to the left lateral ankle done without incident. Predebridement measurement was 1.5 x 1.3 x 0.1 cm. Postdebridement measurement is 1.8 x 1.4 x 0.1 cm. Musculoskeletal: muscle strength is 5 out of 5 in all quads bilateral. Mild pain to palpation to the full-thickness wound to the bilateral lower extremity. No pain with calf pressure. Debridement Note Debridement Note Debridement Free Text: Excisional debridement down to and including subcutaneous tissue, fascia and muscle of the right full-thickness wound to the right lateral ankle done with a number 3 mm dermal curette without incident. Predebridement measurement was 1.5 x 1.7 x 0.2 cm. Postdebridement measurement is 1.7 x 1.8 x 0.3 cm. Excisional debridement down to including subcutaneous tissue with a number 3 mm dermal curette to the left lateral ankle done without incident. Predebridement measurement was 1.5 x 1.3 x 0.1 cm. Postdebridement measurement is 1.8 x 1.4 x 0.1 cm. Post-Debridement Measurements and Additional Note: Post-Debridement Measurements/Treatment - Nurse 1 - General Ulcer Assessment Start: 02/24/25 10:29 Freq: Status: Active Protocol: LOWEXRowan Activity Type Activity Date Activity User E-sign Co-sign Detail Recorded Client Recorded Date Recorded By Document 02/24/25 10:38 [id number] 02/24/25 10:50 GM 02/24/25 10:38 - Today's Visit Information Type of service Follow-up Visit (Physician/CUSTOMER EQUIPMENT ENGINEER ) Arrival Mode Wheelchair Transfer Assistance Manual Patient Identification Verified (Name & Yes ) Vital Signs Temperature (97.8 F-99.1 F) 98.1 F Temperature Source Temporal Pulse Rate (60-100) 79 Pulse Location Monitor Respiratory Rate (12-18) 16 Respiratory rate source Observation Oxygen Delivery Method Room Air Blood Pressure (90/60-120/80) 112/66 Blood Pressure Mean 81 Source Monitor Position Semi-Fowlers Blood Pressure Location Right Arm History Since Last Visit- (Skip if this is Patient's initial visit) Have you changed medications since your No last visit? Any new allergies or adverse reactions No Had a fall/change in ADL's that may No increase risk of falls Signs or symptoms of abuse and/or No neglect since last visit Have you been in the hospital since your No last visit? Has dressing in place as prescribed Yes Has compression in place as prescribed No Has offloadiing in place as prescribed N/A Experienced any changes in pain level or No management Left Footwear Regular Shoe Right Footwear Regular Shoe Pain Scale: 0-10 Numeric Is Patient Pain Free? Yes WC - Nurse 1 - General Ulcer Measurement Start: 02/24/25 10:29 Freq: Status: Active Protocol: Activity Type Activity Date Activity User E-sign Co-sign Detail Recorded Client Recorded Date Recorded By Document 02/24/25 10:38 [id number] 02/24/25 10:50 GM 02/24/25 10:38 Wound Center Nurse 1 #2 Left lateral Ankle -Current Size (cm) - Length 2.0 -Current Size (cm) - Width 1.3 -Current Size (cm) - Depth 0.1 -Total Square Cm 2.60 -Date of Last Picture (Recall this 02/24/25 field) -Photo Taken Yes -Epithelialization Small 1-33% -Tunneling No -Undermining/Tunneling No -Circular Undermining No -Exudate Amt Medium -Exudate Type Serosanguineous -Wound Margin Distinct, Outline Attached -Granulation Amt Large (67-100%) -Granulation Quality Red -Slough/Fibrin No -Necrosis Amt None Present (0 %) -Texture ([place]-wound Skin Appearance) No Abnormality, Assessed -Moisture ([place]-wound Skin Appearance) No Abnormality, Assessed -Color ([place]-wound Skin Appearance) No Abnormality, Assessed -Temperature ([place]-wound Skin No Abnormality Appearance) (Pt Warm) -Tenderness on Palpation ([place]-wound Yes Skin Appearance) -Ulcer Cleansing Soap and Water -Foul Odor after Cleansing Yes -Anesthetic Used 5% Lidocaine Gel #1 Right lateral Ankle -Current Size (cm) - Length 1.5 -Current Size (cm) - Width 1.0 -Current Size (cm) - Depth 0.4 -Total Square Cm 1.50 -Date of Last Picture (Recall this 02/24/25 field) -Photo Taken Yes -Epithelialization Small 1-33% -Tunneling No -Undermining/Tunneling No -Circular Undermining No -Exudate Amt Small -Exudate Type Yellow/Green -Wound Margin Distinct, Outline Attached -Granulation Amt Medium (34-66%) -Granulation Quality Red -Slough/Fibrin Yes -Necrosis Amt Small (1-33%) -Necrotic Tissue Type Adherent Slough -Texture ([place]-wound Skin Appearance) No Abnormality, Assessed -Moisture ([place]-wound Skin Appearance) No Abnormality, Assessed -Color ([place]-wound Skin Appearance) No Abnormality, Assessed -Temperature ([place]-wound Skin No Abnormality Appearance) (Pt Warm) -Tenderness on Palpation ([place]-wound Yes Skin Appearance) -Ulcer Cleansing Soap and Water -Foul Odor after Cleansing Yes -Anesthetic Used 5% Lidocaine Gel Lower Limb Edema Present Yes Right Calf (cm) 36.5 Right Ankle (cm) 23.5 Left Calf (cm) 36.5 Left Ankle (cm) 23.5 WC - Nurse 2 - General Ulcer CM Notes Start: 02/24/25 10:29 Freq: Status: Active Protocol: Activity Type Activity Date Activity User E-sign Co-sign Detail Recorded Client Recorded Date Recorded By Document 02/24/25 12:04 [email or web address] [id number] 02/24/25 12:06 DARWIN 02/24/25 12:04 Wound Center Nurse 2 #2 Left lateral Ankle -Time 12:04 -Correct Patient Yes -Correct Side, Site, Position Yes -Correct Procedure Yes -Procedure Performed Yes -Type of Procedure Debridement -Clinical Debridement Subcutaneous -Tissue Removed Subcutaneous -Post Debridement (cm) - Length 1.8 -Post Debridement (cm) - Width 1.4 -Post Debridement (cm) - Depth 0.1 -Total Square (Post) (cm) 2.52 -Area of Debridement (cm) - Length 1.8 -Area of Debridement (cm) - Width 1.4 -Total Square (Area) (cm) 2.52 -Tunneling No -Undermining/Tunneling No -Circular Undermining No -Wound/Ulcer Outcome Not Healed -Ulcer Cleansing Rinsed/ Irrigated with Saline -Foul Odor after Cleansing No -Bioengineered Tissue No -Bleeding Controlled with Pressure -Treatment Response Procedure Tolerated Well -Offloading No -Debridement - Subq, 1st 20sq cm Yes #1 Right lateral Ankle -Time 12:05 -Correct Patient Yes -Correct Side, Site, Position Yes -Correct Procedure Yes -Procedure Performed Yes -Type of Procedure Debridement -Clinical Debridement Muscle / Fascia -Tissue Removed Muscle -Post Debridement (cm) - Length 1.7 -Post Debridement (cm) - Width 1.8 -Post Debridement (cm) - Depth 0.3 -Total Square (Post) (cm) 3.06 -Area of Debridement (cm) - Length 1.7 -Area of Debridement (cm) - Width 1.8 -Total Square (Area) (cm) 3.06 -Tunneling No -Undermining/Tunneling No -Circular Undermining No -Wound/Ulcer Outcome Not Healed -Ulcer Cleansing Rinsed/ Irrigated with Saline -Foul Odor after Cleansing No -Bioengineered Tissue No -Bleeding Controlled with Pressure -Treatment Response Procedure Tolerated Well -Offloading No -Debridement - Muscle / Fascia, 1st Yes 20sq cm Pain Scale: 0-10 Numeric Is Patient Pain Free? Yes WC - Nurse 3 - General Ulcer D/C NN Start: 02/24/25 10:29 Freq: Status: Active Protocol: Activity Type Activity Date Activity User E-sign Co-sign Detail Recorded Client Recorded Date Recorded By Document 02/24/25 11:44 [id number] 02/24/25 11:45 02/24/25 11:44 Wound Care Center Nurse 3 #2 Left lateral Ankle -Ulcer Cleansing Not Cleansed -Foul Odor after Cleansing No -Primary Dressing Applied Silvercel -Primary Dressing Covered/Secured with Dry Gauze & Roll Gauze, Secured with Tape -Silvercel 1 #1 Right lateral Ankle -Ulcer Cleansing Not Cleansed -Foul Odor after Cleansing No -Primary Dressing Covered/Secured with Dry Gauze & Roll Gauze, Secured with Tape -Other Covering piece of silvercel Pain Scale: 0-10 Numeric Is Patient Pain Free? Yes WC - Visit Discharge Discharge Condition Stable Ambulatory Status Wheelchair Transportation Private Auto Assessment/Plan Assessment/Plan (1) Cellulitis of ankle: CODE(S): L03.119 - Cellulitis of unspecified part of limb PLAN: Patient was examined and evaluated. All findings were discussed with the patient. All questions were answered to the patient satisfaction. Excisional debridement down to and including subcutaneous tissue, fascia and muscle of the right full-thickness wound to the right lateral ankle done with a number 3 mm dermal curette without incident. Predebridement measurement was 1.5 x 1.7 x 0.2 cm. Postdebridement measurement is 1.7 x 1.8 x 0.3 cm. Excisional debridement down to including subcutaneous tissue with a number 3 mm dermal curette to the left lateral ankle done without incident. Predebridement measurement was 1.5 x 1.3 x 0.1 cm. Postdebridement measurement is 1.8 x 1.4 x 0.1 cm. Culture was taken of the right lower extremity full-thickness wound. Patient will continue his Augmentin 875 twice daily as prescribed by the previous provider, review of the microbiology results show evidence of polymicrobial growth and the patient will be placed on ciprofloxacin 750 mg twice daily for 2 weeks. Will adjust cultures as needed. By the lower extremity were cleaned and patted dry. The areas were dressed with Betadine soaked gauze dry sterile dressing and compression wraps were placed to the bilateral lower extremity. Patient will perform daily dressing changes. Educated the patient as well as his aide to make sure that he is wearing his PRAFO boots and offloading his calfs with pillow so that his lateral full- thickness wounds are floating in area which she is understanding of. Patient will continue strict blood sugar control. Patient will follow-up with Dr. Ahmadi in 1 week (2) Non-pressure chronic ulcer of right ankle with necrosis of muscle: CODE(S): L97.313 - Non-pressure chronic ulcer of right ankle with necrosis of muscle (3) Non-pressure chronic ulcer of left ankle with fat layer exposed: CODE(S): L97.322 - Non-pressure chronic ulcer of left ankle with fat layer exposed
--- NOTE | 2025-02-25 10:00 | WC ---
PHOTO-RIGHT ANKLE 02/24/25
--- NOTE | 2025-02-25 10:03 | WC ---
PHOTO-LEFT ANKLE 02/24/25
[2025-03-03 09:37] VITALS: BP 107/58; PULSE 90; RESP 16; TEMP 36.7
--- NOTE | 2025-03-03 12:41 | PN.PCM_ITS ---
History of Present Illness Date of Service: 03/03/25 Chief Complaint: Bilateral Foot Ulcers. History of Wound: Mr. Howe is a 69 yo referred to the wound center by his vascular surgery PA due to non healing bilateral ankle/foot ulcer. He is a poor historian due to memory impairment/dementia. Currently resides in a nursing facility. Per vascular surgery documentation, right lower extremity ulcer is chronic and left is more recent but has been present for months. Had imaging done including a CTA with no significant focal stenosis and three-vessel runoff. Also recently had repeat lower extremity arterial studies with no significant concerns noted. No indication for vascular intervention per documentation. History of diabetes mellitus type 2, no recent labs Progress of Wound: Full-thickness wound to the bilateral lateral ankle, redness improving to the right ankle, wounds are stable Subjective Subjective Patient is a 69-year-old male presenting to wound care center today for follow- up evaluation of bilateral full-thickness wounds to the lateral ankle. Patient has been compliant and taking the oral antibiotic as prescribed. Dressing changes have been done by nursing staff. There looks to be good improvement to the bilateral lower extremity full-thickness wounds. Redness has improved especially to the right ankle. He denies any trauma. He is offloading as discu ssed. Denies constitutional symptoms. No other pedal complaints at this time. Objective Data Objective Data Vital Signs: Vital Signs Temp Pulse Resp BP O2 Del Method 98.1 F 90 16 107/58 L Room Air 03/03/25 09:37 03/03/25 09:37 03/03/25 09:37 03/03/25 09:37 02/24/25 10:38 Oxygen Delivery Method Room Air Lab / Micro Data Micro: Microbiology 02/24/25 11:30 Wound - Ankle Gram Stain - Final 02/24/25 11:30 Wound - Ankle Wound Culture - Final No growth aerobically. 02/24/25 11:30 Wound - Ankle Anaerobic Culture - Final No anaerobic bacteria isolated. Charges/Coding Procedures Integumentary [id number]: [id number] Marilia subq tissue 20 sq cm/< Physical Exam Narrative Vascular: DP and PT pulses are palpable. CFT is brisk. Skin temp gradient is warm to warm from proximal ankles to distal digits to the bilateral lower extremity. Improved erythema to the right ankle. Neurological: Light touch is intact. Patient does respond to painful stimuli. Dermatological: Full-thickness wound to the lateral right ankle measuring 1.3 x 1.2 x 0.4 cm. Undermining has improved. Wound base is granular with negative probe to bone. Hyperkeratotic tissue to the periwound has improved. Negative probe to bone. Evidence of full-thickness wound to the lateral left ankle measuring 1.6 x 0.8 x 0.1 cm. Wound base is granular with no sign of infection. Negative probe to bone. Excisional debridement down to and including subcutaneous tissue, fascia and muscle of the right full-thickness wound to the right lateral ankle done with a number 3 mm dermal curette without incident. Predebridement measurement was 1.1 x 1.1 x 0.2 cm. Postdebridement measurement is 1.3 x 1.2 x 0.4 cm. Excisional debridement down to including subcutaneous tissue with a number 3 mm dermal curette to the left lateral ankle done without incident. Predebridement measurement was 1.4 x 0.7 x 0.1 cm. Postdebridement measurement is 1.6 x 0.8 x 0.1 cm. Musculoskeletal: Mild pain to palpation to the full-thickness wound to the bilateral lower extremity. No pain with calf pressure. Debridement Note Debridement Note Wound debrided: Right ankle (lateral) Tissue Removed: Devitalized tissue Debridement Free Text: Excisional debridement down to and including subcutaneous tissue, fascia and muscle of the right full-thickness wound to the right lateral ankle done with a number 3 mm dermal curette without incident. Predebridement measurement was 1.1 x 1.1 x 0.2 cm. Postdebridement measurement is 1.3 x 1.2 x 0.4 cm. Excisional debridement down to including subcutaneous tissue with a number 3 mm dermal curette to the left lateral ankle done without incident. Predebridement measurement was 1.4 x 0.7 x 0.1 cm. Postdebridement measurement is 1.6 x 0.8 x 0.1 cm. Post-Debridement Measurements and Additional Note: Post-Debridement Measurements/Treatment JOIE - Nurse 1 - General Ulcer Assessment Start: 02/24/25 10:29 Freq: Status: Active Protocol: ANKURT Activity Type Activity Date Activity User E-sign Co-sign Detail Recorded Client Recorded Date Recorded By Document 02/24/25 10:38 [id number] 02/24/25 10:50 Document 03/03/25 09:37 [id number] 03/03/25 09:47 02/24/25 03/03/25 10:38 09:37 - Today's Visit Information Type of service Follow-up Visit Follow-up Visit (Physician/INSURANCE OFFICE SUPERVISOR (Physician/INSURANCE OFFICE SUPERVISOR ) ) Arrival Mode Wheelchair Wheelchair Transfer Assistance Manual Manual Patient Identification Verified (Name & Yes Yes ) Vital Signs Temperature (97.8 F-99.1 F) 98.1 F 98.1 F Temperature Source Temporal Temporal Pulse Rate (60-100) 79 90 Pulse Location Monitor Monitor Respiratory Rate (12-18) 16 16 Respiratory rate source Observation Observation Oxygen Delivery Method Room Air Blood Pressure (90/60-120/80) 112/66 107/58 L Blood Pressure Mean (mm Hg) 81 74 Source Monitor Monitor Position Semi-Fowlers Semi-Fowlers Blood Pressure Location Right Arm Right Arm History Since Last Visit- (Skip if this is Patient's initial visit) Have you changed medications since your No No last visit? Any new allergies or adverse reactions No No Had a fall/change in ADL's that may No No increase risk of falls Signs or symptoms of abuse and/or No No neglect since last visit Have you been in the hospital since your No No last visit? Has dressing in place as prescribed Yes Yes Has compression in place as prescribed No N/A Has offloadiing in place as prescribed N/A N/A Experienced any changes in pain level or No No management Left Footwear Regular Shoe Right Footwear Regular Shoe Pain Scale: 0-10 Numeric Is Patient Pain Free? Yes Yes - Nurse 1 - General Ulcer Measurement Start: 02/24/25 10:29 Freq: Status: Active Protocol: Activity Type Activity Date Activity User E-sign Co-sign Detail Recorded Client Recorded Date Recorded By Document 02/24/25 10:38 [id number] 02/24/25 10:50 Document 03/03/25 09:37 [id number] 03/03/25 09:47 02/24/25 03/03/25 10:38 09:37 Wound Center Nurse 1 #2 Left lateral Ankle -Current Size (cm) - Length 2.0 1.3 -Current Size (cm) - Width 1.3 1 -Current Size (cm) - Depth 0.1 0.1 -Total Square Cm 2.60 1.3 -Date of Last Picture (Recall this 02/24/25 03/03/25 field) -Photo Taken Yes Yes -Epithelialization Small 1-33% -Tunneling No -Undermining/Tunneling No -Circular Undermining No -Exudate Amt Medium Small -Exudate Type Serosanguineous Serosanguineous -Wound Margin Distinct, Flat & Intact Outline Attached -Granulation Amt Large (67-100%) -Granulation Quality Red -Slough/Fibrin No -Necrosis Amt None Present (0 %) -Texture ([place]-wound Skin Appearance) No Abnormality, Excoriation Assessed -Moisture ([place]-wound Skin Appearance) No Abnormality, Dry/Scaly Assessed -Color ([place]-wound Skin Appearance) No Abnormality, No Abnormality Assessed -Temperature ([place]-wound Skin No Abnormality No Abnormality Appearance) (Pt Warm) (Pt Warm) -Tenderness on Palpation ([place]-wound Yes Yes Skin Appearance) -Ulcer Cleansing Soap and Water Soap and Water -Foul Odor after Cleansing Yes No -Anesthetic Used 5% Lidocaine 5% Lidocaine Gel Gel #1 Right lateral Ankle -Current Size (cm) - Length 1.5 1 -Current Size (cm) - Width 1.0 0.8 -Current Size (cm) - Depth 0.4 0.5 -Total Square Cm 1.50 0.8 -Date of Last Picture (Recall this 02/24/25 03/03/25 field) -Photo Taken Yes Yes -Epithelialization Small 1-33% -Tunneling No -Undermining/Tunneling No -Circular Undermining No -Exudate Amt Small Small -Exudate Type Yellow/Green Serosanguineous -Wound Margin Distinct, Flat & Intact Outline Attached -Granulation Amt Medium (34-66%) Medium (34-66%) -Granulation Quality Red Red -Slough/Fibrin Yes Yes -Necrosis Amt Small (1-33%) Medium (34-66%) -Necrotic Tissue Type Adherent Slough Adherent Slough -Texture ([place]-wound Skin Appearance) No Abnormality, Excoriation Assessed -Moisture ([place]-wound Skin Appearance) No Abnormality, No Abnormality Assessed -Color ([place]-wound Skin Appearance) No Abnormality, No Abnormality Assessed -Temperature ([place]-wound Skin No Abnormality No Abnormality Appearance) (Pt Warm) (Pt Warm) -Tenderness on Palpation ([place]-wound Yes Yes Skin Appearance) -Ulcer Cleansing Soap and Water Soap and Water -Foul Odor after Cleansing Yes No -Anesthetic Used 5% Lidocaine 5% Lidocaine Gel Gel Lower Limb Edema Present Yes Right Calf (cm) 36.5 Right Ankle (cm) 23.5 Left Calf (cm) 36.5 Left Ankle (cm) 23.5 WC - Nurse 2 - General Ulcer CM Notes Start: 02/24/25 10:29 Freq: Status: Active Protocol: Activity Type Activity Date Activity User E-sign Co-sign Detail Recorded Client Recorded Date Recorded By Document 02/24/25 12:04 [email or web address] [id number] 02/24/25 12:06 JF Document 03/03/25 09:54 [id number] 03/03/25 09:59 02/24/25 03/03/25 12:04 09:54 Wound Center Nurse 2 #2 Left lateral Ankle -Time 12:04 09:56 -Correct Patient Yes Yes -Correct Side, Site, Position Yes Yes -Correct Procedure Yes Yes -Procedure Performed Yes Yes -Type of Procedure Debridement Debridement -Clinical Debridement Subcutaneous Subcutaneous -Tissue Removed Subcutaneous Subcutaneous -Post Debridement (cm) - Length 1.8 1.6 -Post Debridement (cm) - Width 1.4 0.8 -Post Debridement (cm) - Depth 0.1 0.1 -Total Square (Post) (cm) 2.52 1.28 -Area of Debridement (cm) - Length 1.8 1.6 -Area of Debridement (cm) - Width 1.4 0.8 -Total Square (Area) (cm) 2.52 1.28 -Tunneling No No -Undermining/Tunneling No No -Circular Undermining No No -Wound/Ulcer Outcome Not Healed Not Healed -Ulcer Cleansing Rinsed/ Rinsed/ Irrigated with Irrigated with Saline Saline -Foul Odor after Cleansing No No -Bioengineered Tissue No No -Bleeding Controlled with Pressure Pressure -Treatment Response Procedure Procedure Tolerated Well Tolerated Well -Offloading No No -Debridement - Subq, 1st 20sq cm Yes Yes #1 Right lateral Ankle -Time 12:05 09:56 -Correct Patient Yes Yes -Correct Side, Site, Position Yes Yes -Correct Procedure Yes Yes -Procedure Performed Yes Yes -Type of Procedure Debridement Debridement -Clinical Debridement Muscle / Fascia Muscle / Fascia -Tissue Removed Muscle Muscle,Fascia -Post Debridement (cm) - Length 1.7 1.3 -Post Debridement (cm) - Width 1.8 1.2 -Post Debridement (cm) - Depth 0.3 0.4 -Total Square (Post) (cm) 3.06 1.56 -Area of Debridement (cm) - Length 1.7 1.3 -Area of Debridement (cm) - Width 1.8 1.2 -Total Square (Area) (cm) 3.06 1.56 -Tunneling No No -Undermining/Tunneling No No -Circular Undermining No No -Wound/Ulcer Outcome Not Healed Not Healed -Ulcer Cleansing Rinsed/ Rinsed/ Irrigated with Irrigated with Saline Saline -Foul Odor after Cleansing No No -Bioengineered Tissue No No -Bleeding Controlled with Pressure Pressure -Treatment Response Procedure Procedure Tolerated Well Tolerated Well -Offloading No No -Debridement - Muscle / Fascia, 1st Yes Yes 20sq cm Pain Scale: 0-10 Numeric Is Patient Pain Free? Yes Yes - Nurse 3 - General Ulcer D/C NN Start: 02/24/25 10:29 Freq: Status: Active Protocol: Activity Type Activity Date Activity User E-sign Co-sign Detail Recorded Client Recorded Date Recorded By Document 02/24/25 11:44 [id number] 02/24/25 11:45 Document 03/03/25 10:21 [id number] 03/03/25 10:22 02/24/25 03/03/25 11:44 10:21 Wound Care Center Nurse 3 #2 Left lateral Ankle -Ulcer Cleansing Not Cleansed Not Cleansed -Foul Odor after Cleansing No No -Primary Dressing Applied Silvercel Silvercel -Primary Dressing Covered/Secured with Dry Gauze & Dry Gauze & Roll Gauze, Roll Gauze, Secured with Secured with Tape Tape -Silvercel 1 1 #1 Right lateral Ankle -Ulcer Cleansing Not Cleansed Not Cleansed -Foul Odor after Cleansing No No -Other Dressing part of the silvercel -Primary Dressing Covered/Secured with Dry Gauze & Dry Gauze & Roll Gauze, Roll Gauze, Secured with Secured with Tape Tape -Other Covering piece of silvercel BLE -Tubular Bandage Single Layer -Size of Tubigrip Used Size D -Size D ($) 2 Pain Scale: 0-10 Numeric Is Patient Pain Free? Yes Yes WC - Visit Discharge Discharge Condition Stable Stable Ambulatory Status Wheelchair Wheelchair Transportation Private Auto Private Auto Additional Wound Wound debrided: Left ankle (lateral) Type of Debridement: Excisional debridement Depth: Down to and including healthy tissue and in the subcutaneous layer Percentage of wound debrided: 100 Instrument Used: 5mm curette Tissue Removed: Devitalized tissue Severity: Fat Layer Exposed Amount of bleeding with debridement: Mild Bleeding Controlled with: Pressure Patient tolerated procedure: Patient tolerated procedure well Assessment/Plan Assessment/Plan (1) Non-pressure chronic ulcer of right ankle with necrosis of muscle: CODE(S): L97.313 - Non-pressure chronic ulcer of right ankle with necrosis of muscle PLAN: Patient was examined and evaluated. All findings were discussed with the patient. All questions were answered to the patient satisfaction. Excisional debridement down to and including subcutaneous tissue, fascia and muscle of the right full-thickness wound to the right lateral ankle done with a number 3 mm dermal curette without incident. Predebridement measurement was 1.1 x 1.1 x 0.2 cm. Postdebridement measurement is 1.3 x 1.2 x 0.4 cm. Excisional debridement down to including subcutaneous tissue with a number 3 mm dermal curette to the left lateral ankle done without incident. Predebridement measurement was 1.4 x 0.7 x 0.1 cm. Postdebridement measurement is 1.6 x 0.8 x 0.1 cm. The bilateral lower extremities were cleaned and patted dry. Silver alginate was applied followed by dry sterile dressing and compression wrap. Patient will continue his ciprofloxacin 750 mg twice daily until gone. There seems to be great improvement to the cellulitis to the right lower extremity. There is good prognosis for patient's healing but will take time. He was educated to continue to offload his lateral ankles especially with blankets and pillows which was also placed on the discharge orders. If there is delayed healing over the next few weeks especially to the right ankle we will begin authorization for skin graft substitutes. Patient will follow-up with Dr. Ahmadi in 1 week (2) Non-healing ulcer of left ankle with fat layer exposed: CODE(S): L97.322 - Non-pressure chronic ulcer of left ankle with fat layer exposed
--- NOTE | 2025-03-04 09:23 | WC ---
PHOTO-RIGHT PURI 03/03/25
--- NOTE | 2025-03-04 09:26 | WC ---
PHOTO-LEFT ANKLE 03/03/25
[2025-03-10 09:32] VITALS: BP 108/65; PULSE 77; RESP 14; TEMP 36.1
--- NOTE | 2025-03-10 10:03 | PN.PCM_ITS ---
History of Present Illness Date of Service: 03/10/25 Chief Complaint: Bilateral Foot Ulcers. History of Wound: Mr. Howe is a 69 yo referred to the wound center by his vascular surgery PA due to non healing bilateral ankle/foot ulcer. He is a poor historian due to memory impairment/dementia. Currently resides in a nursing facility. Per vascular surgery documentation, right lower extremity ulcer is chronic and left is more recent but has been present for months. Had imaging done including a CTA with no significant focal stenosis and three-vessel runoff. Also recently had repeat lower extremity arterial studies with no significant concerns noted. No indication for vascular intervention per documentation. History of diabetes mellitus type 2, no recent labs Progress of Wound: Full-thickness wound to the bilateral lateral ankle, redness improving to the right ankle, wounds are stable Subjective Subjective Patient is a 69-year-old diabetic male presenting to clinic today for follow-up evaluation of bilateral ankle ulcerations on the lateral aspect at the level of the fibula. Patient has not been compliant with offloading while in bed and has been spending more time in his wheelchair at the facility. He admits to pain to the right ankle. He does deny trauma. He is getting dressing changes by nursing staff. Denies constitutional symptoms. No other pedal complaints at this time. Objective Data Objective Data Vital Signs: Vital Signs Temp Pulse Resp BP O2 Del Method 96.9 F L 77 14 108/65 Room Air 03/10/25 09:32 03/10/25 09:32 03/10/25 09:32 03/10/25 09:32 02/24/25 10:38 Oxygen Delivery Method Room Air Lab / Micro Data Micro: Microbiology 02/24/25 11:30 Wound - Ankle Gram Stain - Final 02/24/25 11:30 Wound - Ankle Wound Culture - Final No growth aerobically. 02/24/25 11:30 Wound - Ankle Anaerobic Culture - Final No anaerobic bacteria isolated. Charges/Coding Procedures Integumentary [id number]: [id number] Marilia subq tissue 20 sq cm/< Physical Exam Narrative Vascular: DP and PT pulses are palpable. CFT is brisk. Skin temp gradient is warm to warm from proximal ankles to distal digits to the bilateral lower extremity. No erythema. Neurological: Light touch is intact. Patient does respond to painful stimuli. Dermatological: Full-thickness wound to the lateral right ankle measuring 1.2 x 1.3 x 0.6 cm. Wound base is granular with negative probe to bone. Evidence of periwound ecchymosis. Evidence of full-thickness wound to the lateral left ankle measuring 1.7 x 1.0 x 0.1 cm. Evidence of periwound ecchymosis. wound base is granular with no sign of infection. Negative probe to bone. Excisional debridement down to and including subcutaneous tissue, fascia and muscle of the right full-thickness wound to the right lateral ankle done with a number 3 mm dermal curette without incident. Predebridement measurement was 1.0 x 1.2 x 0.4 cm. Postdebridement measurement is 1.2 x 1.3 x 0.6 cm. Excisional debridement down to including subcutaneous tissue with a number 3 mm dermal curette to the left lateral ankle done without incident. Predebridement measurement was 1.5 x 0.8 x 0.1 cm. Postdebridement measurement is 1.7 x 1.0 x 0.1 cm. Musculoskeletal: Mild pain to palpation to the full-thickness wound to the bilateral lower extremity. No pain with calf pressure. Debridement Note Debridement Note Wound debrided: Right ankle (lateral) Tissue Removed: Devitalized tissue Debridement Free Text: Excisional debridement down to and including subcutaneous tissue, fascia and muscle of the right full-thickness wound to the right lateral ankle done with a number 3 mm dermal curette without incident. Predebridement measurement was 1.0 x 1.2 x 0.4 cm. Postdebridement measurement is 1.2 x 1.3 x 0.6 cm. Excisional debridement down to including subcutaneous tissue with a number 3 mm dermal curette to the left lateral ankle done without incident. Predebridement measurement was 1.5 x 0.8 x 0.1 cm. Postdebridement measurement is 1.7 x 1.0 x 0.1 cm. Post-Debridement Measurements and Additional Note: Post-Debridement Measurements/Treatment WC - Nurse 1 - General Ulcer Assessment Start: 02/24/25 10:29 Freq: Status: Active Protocol: DAVIDEXT Activity Type Activity Date Activity User E-sign Co-sign Detail Recorded Client Recorded Date Recorded By Document 02/24/25 10:38 [id number] 02/24/25 10:50 GM Document 03/03/25 09:37 GM [id number] 03/03/25 09:47 GM Document 03/10/25 09:32 ML [id number] 03/10/25 09:41 ML 02/24/25 03/03/25 03/10/25 10:38 09:37 09:32 - Today's Visit Information Type of service Follow-up Visit Follow-up Visit Follow-up Visit (Physician/FABRIC WORKER SUPERVISOR (Physician/FABRIC WORKER SUPERVISOR (Physician/FABRIC WORKER SUPERVISOR ) ) ) Arrival Mode Wheelchair Wheelchair Wheelchair Transfer Assistance Manual Manual Manual Patient Identification Verified (Name & Yes Yes Yes ) Patient Requires Transmission-Based No Precautions Vital Signs Temperature (97.8 F-99.1 F) 98.1 F 98.1 F 96.9 F L Temperature Source Temporal Temporal Temporal Pulse Rate (60-100) 79 90 77 Pulse Location Monitor Monitor Monitor Respiratory Rate (12-18) 16 16 14 Respiratory rate source Observation Observation Observation Oxygen Delivery Method Room Air Blood Pressure (90/60-120/80) 112/66 107/58 L 108/65 Blood Pressure Mean (mm Hg) 81 74 79 Source Monitor Monitor Monitor Position Semi-Fowlers Semi-Fowlers Sitting Blood Pressure Location Right Arm Right Arm Right Arm History Since Last Visit- (Skip if this is Patient's initial visit) Have you changed medications since your No No No last visit? Any new allergies or adverse reactions No No No Had a fall/change in ADL's that may No No No increase risk of falls Signs or symptoms of abuse and/or No No No neglect since last visit Have you been in the hospital since your No No No last visit? Has dressing in place as prescribed Yes Yes Yes Has compression in place as prescribed No N/A No Has offloadiing in place as prescribed N/A N/A N/A Experienced any changes in pain level or No No No management Left Footwear Regular Shoe Right Footwear Regular Shoe Pain Scale: 0-10 Numeric Is Patient Pain Free? Yes Yes Yes - Nurse 1 - General Ulcer Measurement Start: 02/24/25 10:29 Freq: Status: Active Protocol: Activity Type Activity Date Activity User E-sign Co-sign Detail Recorded Client Recorded Date Recorded By Document 02/24/25 10:38 [id number] 02/24/25 10:50 Document 03/03/25 09:37 GM [id number] 03/03/25 09:47 GM Document 03/10/25 09:32 ML [id number] 03/10/25 09:41 ML 02/24/25 03/03/25 03/10/25 10:38 09:37 09:32 Wound Center Nurse 1 #2 Left lateral Ankle -Current Size (cm) - Length 2.0 1.3 1.4 -Current Size (cm) - Width 1.3 1 1 -Current Size (cm) - Depth 0.1 0.1 0.1 -Total Square Cm 2.60 1.3 1.4 -Date of Last Picture (Recall this 02/24/25 03/03/25 field) -Photo Taken Yes Yes -Epithelialization Small 1-33% Medium 34-66% -Tunneling No -Undermining/Tunneling No -Circular Undermining No -Exudate Amt Medium Small -Exudate Type Serosanguineous Serosanguineous Serosanguineous -Wound Margin Distinct, Flat & Intact Outline Attached -Granulation Amt Large (67-100%) Medium (34-66%) -Granulation Quality Red -Slough/Fibrin No -Necrosis Amt None Present (0 Medium (34-66%) %) -Texture ([place]-wound Skin Appearance) No Abnormality, Excoriation Assessed Assessed -Moisture ([place]-wound Skin Appearance) No Abnormality, Dry/Scaly Assessed,Dry/ Assessed Scaly -Color ([place]-wound Skin Appearance) No Abnormality, No Abnormality Assessed Assessed -Temperature ([place]-wound Skin No Abnormality No Abnormality No Abnormality Appearance) (Pt Warm) (Pt Warm) (Pt Warm) -Tenderness on Palpation ([place]-wound Yes Yes Yes Skin Appearance) -Ulcer Cleansing Soap and Water Soap and Water Rinsed/ Irrigated with Saline -Foul Odor after Cleansing Yes No No -Anesthetic Used 5% Lidocaine 5% Lidocaine 5% Lidocaine Gel Gel Gel #1 Right lateral Ankle -Current Size (cm) - Length 1.5 1 1 -Current Size (cm) - Width 1.0 0.8 0.9 -Current Size (cm) - Depth 0.4 0.5 0.4 -Total Square Cm 1.50 0.8 0.9 -Date of Last Picture (Recall this 02/24/25 03/03/25 field) -Photo Taken Yes Yes -Epithelialization Small 1-33% -Tunneling No -Undermining/Tunneling No -Circular Undermining No -Exudate Amt Small Small Medium -Exudate Type Yellow/Green Serosanguineous Serosanguineous -Wound Margin Distinct, Flat & Intact Outline Attached -Granulation Amt Medium (34-66%) Medium (34-66%) Medium (34-66%) -Granulation Quality Red Red -Slough/Fibrin Yes Yes Yes -Necrosis Amt Small (1-33%) Medium (34-66%) -Necrotic Tissue Type Adherent Slough Adherent Slough Adherent Slough -Texture ([place]-wound Skin Appearance) No Abnormality, Excoriation Assessed Assessed -Moisture ([place]-wound Skin Appearance) No Abnormality, No Abnormality Dry/Scaly Assessed -Color ([place]-wound Skin Appearance) No Abnormality, No Abnormality Assessed Assessed -Temperature ([place]-wound Skin No Abnormality No Abnormality No Abnormality Appearance) (Pt Warm) (Pt Warm) (Pt Warm) -Tenderness on Palpation ([place]-wound Yes Yes Yes Skin Appearance) -Ulcer Cleansing Soap and Water Soap and Water Rinsed/ Irrigated with Saline -Foul Odor after Cleansing Yes No No -Anesthetic Used 5% Lidocaine 5% Lidocaine 5% Lidocaine Gel Gel Gel Lower Limb Edema Present Yes Right Calf (cm) 36.5 Right Ankle (cm) 23.5 Left Calf (cm) 36.5 Left Ankle (cm) 23.5 WC - Nurse 2 - General Ulcer CM Notes Start: 02/24/25 10:29 Freq: Status: Active Protocol: Activity Type Activity Date Activity User E-sign Co-sign Detail Recorded Client Recorded Date Recorded By Document 02/24/25 12:04 [id number] 02/24/25 12:06 Document 03/03/25 09:54 [id number] 03/03/25 09:59 Document 03/10/25 09:51 [id number] [id number] 03/10/25 09:56 02/24/25 03/03/25 03/10/25 12:04 09:54 09:51 Wound Center Nurse 2 #2 Left lateral Ankle -Time 12:04 09:56 09:52 -Correct Patient Yes Yes Yes -Correct Side, Site, Position Yes Yes Yes -Correct Procedure Yes Yes Yes -Procedure Performed Yes Yes Yes -Type of Procedure Debridement Debridement Debridement -Clinical Debridement Subcutaneous Subcutaneous Subcutaneous -Tissue Removed Subcutaneous Subcutaneous Subcutaneous -Post Debridement (cm) - Length 1.8 1.6 1.7 -Post Debridement (cm) - Width 1.4 0.8 1.0 -Post Debridement (cm) - Depth 0.1 0.1 0.1 -Total Square (Post) (cm) 2.52 1.28 1.70 -Area of Debridement (cm) - Length 1.8 1.6 1.7 -Area of Debridement (cm) - Width 1.4 0.8 1.0 -Total Square (Area) (cm) 2.52 1.28 1.70 -Tunneling No No No -Undermining/Tunneling No No No -Circular Undermining No No No -Wound/Ulcer Outcome Not Healed Not Healed Not Healed -Ulcer Cleansing Rinsed/ Rinsed/ Rinsed/ Irrigated with Irrigated with Irrigated with Saline Saline Saline -Foul Odor after Cleansing No No No -Bioengineered Tissue No No No -Bleeding Controlled with Pressure Pressure Pressure -Treatment Response Procedure Procedure Procedure Tolerated Well Tolerated Well Tolerated Well -Offloading No No Yes -Type of Offloading Other -Other Type of Offloading pravelon boots -Debridement - Subq, 1st 20sq cm Yes Yes Yes #1 Right lateral Ankle -Time 12:05 09:56 09:52 -Correct Patient Yes Yes Yes -Correct Side, Site, Position Yes Yes Yes -Correct Procedure Yes Yes Yes -Procedure Performed Yes Yes Yes -Type of Procedure Debridement Debridement Debridement -Clinical Debridement Muscle / Fascia Muscle / Fascia Muscle / Fascia -Tissue Removed Muscle Muscle,Fascia Muscle -Post Debridement (cm) - Length 1.7 1.3 1.2 -Post Debridement (cm) - Width 1.8 1.2 1.3 -Post Debridement (cm) - Depth 0.3 0.4 0.6 -Total Square (Post) (cm) 3.06 1.56 1.56 -Area of Debridement (cm) - Length 1.7 1.3 1.2 -Area of Debridement (cm) - Width 1.8 1.2 1.3 -Total Square (Area) (cm) 3.06 1.56 1.56 -Tunneling No No No -Undermining/Tunneling No No No -Circular Undermining No No No -Wound/Ulcer Outcome Not Healed Not Healed Not Healed -Ulcer Cleansing Rinsed/ Rinsed/ Rinsed/ Irrigated with Irrigated with Irrigated with Saline Saline Saline -Foul Odor after Cleansing No No No -Bioengineered Tissue No No No -Bleeding Controlled with Pressure Pressure Pressure -Treatment Response Procedure Procedure Procedure Tolerated Well Tolerated Well Tolerated Well -Offloading No No Yes -Type of Offloading Other -Other Type of Offloading prevalon -Debridement - Muscle / Fascia, 1st Yes Yes Yes 20sq cm Pain Scale: 0-10 Numeric Is Patient Pain Free? Yes Yes Yes - Nurse 3 - General Ulcer D/C NN Start: 02/24/25 10:29 Freq: Status: Active Protocol: Activity Type Activity Date Activity User E-sign Co-sign Detail Recorded Client Recorded Date Recorded By Document 02/24/25 11:44 [id number] 02/24/25 11:45 Document 03/03/25 10:21 [id number] 03/03/25 10:22 02/24/25 03/03/25 11:44 10:21 Wound Care Center Nurse 3 #2 Left lateral Ankle -Ulcer Cleansing Not Cleansed Not Cleansed -Foul Odor after Cleansing No No -Primary Dressing Applied Silvercel Silvercel -Primary Dressing Covered/Secured with Dry Gauze & Dry Gauze & Roll Gauze, Roll Gauze, Secured with Secured with Tape Tape -Silvercel 1 1 #1 Right lateral Ankle -Ulcer Cleansing Not Cleansed Not Cleansed -Foul Odor after Cleansing No No -Other Dressing part of the silvercel -Primary Dressing Covered/Secured with Dry Gauze & Dry Gauze & Roll Gauze, Roll Gauze, Secured with Secured with Tape Tape -Other Covering piece of silvercel BLE -Tubular Bandage Single Layer -Size of Tubigrip Used Size D -Size D ($) 2 Pain Scale: 0-10 Numeric Is Patient Pain Free? Yes Yes - Visit Discharge Discharge Condition Stable Stable Ambulatory Status Wheelchair Wheelchair Transportation Private Auto Private Auto Additional Wound Wound debrided: Left ankle (lateral) Type of Debridement: Excisional debridement Depth: Down to and including healthy tissue and in the subcutaneous layer Percentage of wound debrided: 100 Instrument Used: 5mm curette Tissue Removed: Devitalized tissue Severity: Fat Layer Exposed Amount of bleeding with debridement: Mild Bleeding Controlled with: Pressure Patient tolerated procedure: Patient tolerated procedure well Assessment/Plan Assessment/Plan (1) Non-pressure chronic ulcer of right ankle with necrosis of muscle: CODE(S): L97.313 - Non-pressure chronic ulcer of right ankle with necrosis of muscle PLAN: Patient was examined and evaluated. All findings were discussed with the patient. All questions were answered to the patient satisfaction. Excisional debridement down to and including subcutaneous tissue, fascia and muscle of the right full-thickness wound to the right lateral ankle done with a number 3 mm dermal curette without incident. Predebridement measurement was 1.0 x 1.2 x 0.4 cm. Postdebridement measurement is 1.2 x 1.3 x 0.6 cm. Excisional debridement down to including subcutaneous tissue with a number 3 mm dermal curette to the left lateral ankle done without incident. Predebridement measurement was 1.5 x 0.8 x 0.1 cm. Postdebridement measurement is 1.7 x 1.0 x 0.1 cm. The bilateral lower extremities are cleaned and patted dry. Betadine soaked gauze followed by dry sterile dressing and compression wrap was donned to the bilateral wounds. After exam if there shows evidence of ecchymosis to the periwound to the bilateral lower extremity. At this time the patient is not compliant nor is a detention not compliant with the orders that are been giving to them to follow daily. I did discuss with the patient and the caregiver in the room, that is imperative that the patient offload the bilateral ankle wounds to help decrease breakdown of skin. We will continue to manage the patient in the wound care center but we need to make sure that the orders are being followed to help accelerate the patient's healing properly. At this time we will begin authorization to the patient insurance for skin graft substitute to help bring up the depth of the right full-thickness wound. Patient will follow-up with Dr. Ahmadi in 1 week (2) Non-healing ulcer of left ankle with fat layer exposed: CODE(S): L97.322 - Non-pressure chronic ulcer of left ankle with fat layer exposed
--- NOTE | 2025-03-11 10:17 | WC ---
PHOTO-RIGHT ANKLE 03/10/25
--- NOTE | 2025-03-11 10:19 | WC ---
PHOTO-LEFT ANKLE 03/10/25
[2025-03-17 09:36] VITALS: PULSE 84; RESP 20; TEMP 36.7
--- NOTE | 2025-03-18 09:31 | WC ---
PHOTO: LEFT ANKLE 03/17/25
--- NOTE | 2025-03-18 09:32 | WC ---
PHOTO: LEFT ANKLE 03/17/25
--- NOTE | 2025-03-20 15:41 | PN.PCM_ITS ---
History of Present Illness Date of Service: 03/17/25 Chief Complaint: Bilateral Foot Ulcers. History of Wound: Mr. Howe is a 69 yo referred to the wound center by his vascular surgery PA due to non healing bilateral ankle/foot ulcer. He is a poor historian due to memory impairment/dementia. Currently resides in a nursing facility. Per vascular surgery documentation, right lower extremity ulcer is chronic and left is more recent but has been present for months. Had imaging done including a CTA with no significant focal stenosis and three-vessel runoff. Also recently had repeat lower extremity arterial studies with no significant concerns noted. No indication for vascular intervention per documentation. History of diabetes mellitus type 2, no recent labs Progress of Wound: Full-thickness wound to the bilateral lateral ankle, redness improving to the right ankle, wounds are stable Subjective Subjective Patient is a 69-year-old diabetic male present to clinic today follow-up evaluation of bilateral ankle full-thickness wounds. They have been compliant with dressing changes at the longterm facility. He is offloading and admits improvement in pain and swelling to the bilateral lower extremity especially to the right. He has been approved for amniotic skin graft substitute. He denies trauma. Denies constitutional symptoms. No other pedal complaints at this time. Objective Data Objective Data Vital Signs: Vital Signs Temp Pulse Resp BP O2 Del Method 98.0 F 84 20 H 108/65 Room Air 03/17/25 09:36 03/17/25 09:36 03/17/25 09:36 03/10/25 09:32 02/24/25 10:38 Oxygen Delivery Method Room Air Lab / Micro Data Micro: Microbiology 02/24/25 11:30 Wound - Ankle Gram Stain - Final 02/24/25 11:30 Wound - Ankle Wound Culture - Final No growth aerobically. 02/24/25 11:30 Wound - Ankle Anaerobic Culture - Final No anaerobic bacteria isolated. Charges/Coding Procedures Integumentary [id number]: [id number] Marilia subq tissue 20 sq cm/< Physical Exam Narrative Vascular: DP and PT pulses are palpable. CFT is brisk. Skin temp gradient is warm to warm from proximal ankles to distal digits to the bilateral lower extremity. No erythema. Neurological: Light touch is intact. Patient does respond to painful stimuli. Dermatological: Full-thickness wound to the lateral right ankle measuring 1.3 x 1.2 x 0.4 cm. Wound base is granular with negative probe to bone. Evidence of full-thickness wound to the lateral left ankle measuring 1.5 x 0.9 x 0.1 cm. Wound base is granular with no sign of infection. Excisional debridement down to including subcutaneous tissue with a number 3 mm dermal curette to the left lateral ankle done without incident. Predebridement measurement was 1.4 x 0.7 x 0.1 cm. Postdebridement measurement is 1.5 x 0.9 x 0.1 cm. Excisional debridement down to and including subcutaneous tissue, fascia and muscle of the right full-thickness wound to the right lateral ankle done with a number 3 mm dermal curette without incident. Predebridement measurement was 1.1 x 1.1 x 0.2 cm. Postdebridement measurement is 1.3 x 1.2 x 0.4 cm. Epicord graft 2.0 x 3.0 cm was applied to the full-thickness wound to the lateral right ankle. Wound base was granular with no concern for infection. 100% use of the graft. First application. There is no evidence of exposed bone or tendon. There is no concern for infection. The area was dressed with bolste r dressing dry sterile dressing and Tubigrip to the right lower extremity. Musculoskeletal: Mild pain to palpation to the full-thickness wound to the bilateral lower extremity. No pain with calf pressure. Debridement Note Debridement Note Debridement Free Text: Excisional debridement down to including subcutaneous tissue with a number 3 mm dermal curette to the left lateral ankle done without incident. Predebridement measurement was 1.4 x 0.7 x 0.1 cm. Postdebridement measurement is 1.5 x 0.9 x 0.1 cm. Excisional debridement down to and including subcutaneous tissue, fascia and muscle of the right full-thickness wound to the right lateral ankle done with a number 3 mm dermal curette without incident. Predebridement measurement was 1.1 x 1.1 x 0.2 cm. Postdebridement measurement is 1.3 x 1.2 x 0.4 cm. Epicord graft 2.0 x 3.0 cm was applied to the full-thickness wound to the lateral right ankle. Wound base was granular with no concern for infection. 100% use of the graft. First application. There is no evidence of exposed bone or tendon. There is no concern for infection. The area was dressed with bolster dressing dry sterile dressing and Tubigrip to the right lower extremity. Post-Debridement Measurements and Additional Note: Post-Debridement Measurements/Treatment - Nurse 1 - General Ulcer Assessment Start: 02/24/25 10:29 Freq: Status: Active Protocol: DAVIDEXRowan Activity Type Activity Date Activity User E-sign Co-sign Detail Recorded Client Recorded Date Recorded By Document 02/24/25 10:38 GM [id number] 02/24/25 10:50 GM Document 03/03/25 09:37 GM [id number] 03/03/25 09:47 GM Document 03/10/25 09:32 ML [id number] 03/10/25 09:41 ML Document 03/17/25 09:36 TS [id number] 03/17/25 09:44 TS 02/24/25 03/03/25 03/10/25 10:38 09:37 09:32 - Today's Visit Information Type of service Follow-up Visit Follow-up Visit Follow-up Visit (Physician/LINING FELLER BLINDSTITCH (Physician/LINING FELLER BLINDSTITCH (Physician/LINING FELLER BLINDSTITCH ) ) ) Arrival Mode Wheelchair Wheelchair Wheelchair Transfer Assistance Manual Manual Manual Patient Identification Verified (Name & Yes Yes Yes ) Patient Requires Transmission-Based No Precautions Vital Signs Temperature (97.8 F-99.1 F) 98.1 F 98.1 F 96.9 F L Temperature Source Temporal Temporal Temporal Pulse Rate (60-100) 79 90 77 Pulse Location Monitor Monitor Monitor Respiratory Rate (12-18) 16 16 14 Respiratory rate source Observation Observation Observation Oxygen Delivery Method Room Air Blood Pressure (90/60-120/80) 112/66 107/58 L 108/65 Blood Pressure Mean (mm Hg) 81 74 79 Source Monitor Monitor Monitor Position Semi-Fowlers Semi-Fowlers Sitting Blood Pressure Location Right Arm Right Arm Right Arm History Since Last Visit- (Skip if this is Patient's initial visit) Have you changed medications since your No No No last visit? Any new allergies or adverse reactions No No No Had a fall/change in ADL's that may No No No increase risk of falls Signs or symptoms of abuse and/or No No No neglect since last visit Have you been in the hospital since your No No No last visit? Has dressing in place as prescribed Yes Yes Yes Has compression in place as prescribed No N/A No Has offloadiing in place as prescribed N/A N/A N/A Experienced any changes in pain level or No No No management Left Footwear Regular Shoe Right Footwear Regular Shoe Pain Scale: 0-10 Numeric Is Patient Pain Free? Yes Yes Yes 03/17/25 09:36 - Today's Visit Information Type of service Follow-up Visit (Physician/LINING FELLER BLINDSTITCH ) Arrival Mode Wheelchair Transfer Assistance Manual Patient Identification Verified (Name & Yes ) Patient Requires Transmission-Based No Precautions Vital Signs Temperature (97.8 F-99.1 F) 98.0 F Temperature Source Temporal Pulse Rate (60-100) 84 Pulse Location Monitor Respiratory Rate (12-18) 20 H Respiratory rate source Observation Oxygen Delivery Method Blood Pressure (90/60-120/80) Blood Pressure Mean (mm Hg) Source Position Blood Pressure Location History Since Last Visit- (Skip if this is Patient's initial visit) Have you changed medications since your No last visit? Any new allergies or adverse reactions No Had a fall/change in ADL's that may No increase risk of falls Signs or symptoms of abuse and/or No neglect since last visit Have you been in the hospital since your No last visit? Has dressing in place as prescribed Yes Has compression in place as prescribed N/A Has offloadiing in place as prescribed N/A Experienced any changes in pain level or No management Left Footwear Right Footwear Regular Shoe Pain Scale: 0-10 Numeric Is Patient Pain Free? Yes - Nurse 1 - General Ulcer Measurement Start: 02/24/25 10:29 Freq: Status: Active Protocol: Activity Type Activity Date Activity User E-sign Co-sign Detail Recorded Client Recorded Date Recorded By Document 02/24/25 10:38 GM [id number] 02/24/25 10:50 GM Document 03/03/25 09:37 GM [id number] 03/03/25 09:47 GM Document 03/10/25 09:32 ML [id number] 03/10/25 09:41 ML Document 03/17/25 09:36 TS [id number] 03/17/25 09:44 TS 02/24/25 03/03/25 03/10/25 10:38 09:37 09:32 Wound Center Nurse 1 #2 Left lateral Ankle -Combined with other wound -Current Size (cm) - Length 2.0 1.3 1.4 -Current Size (cm) - Width 1.3 1 1 -Current Size (cm) - Depth 0.1 0.1 0.1 -Total Square Cm 2.60 1.3 1.4 -Date of Last Picture (Recall this 02/24/25 03/03/25 field) -Photo Taken Yes Yes -Epithelialization Small 1-33% Medium 34-66% -Tunneling No -Undermining/Tunneling No -Circular Undermining No -Exudate Amt Medium Small -Exudate Type Serosanguineous Serosanguineous Serosanguineous -Wound Margin Distinct, Flat & Intact Outline Attached -Granulation Amt Large (67-100%) Medium (34-66%) -Granulation Quality Red -Slough/Fibrin No -Necrosis Amt None Present (0 Medium (34-66%) %) -Necrotic Tissue Type -Structure Exposed -Texture ([place]-wound Skin Appearance) No Abnormality, Excoriation Assessed Assessed -Moisture ([place]-wound Skin Appearance) No Abnormality, Dry/Scaly Assessed,Dry/ Assessed Scaly -Color ([place]-wound Skin Appearance) No Abnormality, No Abnormality Assessed Assessed -Temperature ([place]-wound Skin No Abnormality No Abnormality No Abnormality Appearance) (Pt Warm) (Pt Warm) (Pt Warm) -Tenderness on Palpation ([place]-wound Yes Yes Yes Skin Appearance) -Ulcer Cleansing Soap and Water Soap and Water Rinsed/ Irrigated with Saline -Foul Odor after Cleansing Yes No No -Anesthetic Used 5% Lidocaine 5% Lidocaine 5% Lidocaine Gel Gel Gel #1 Right lateral Ankle -Combined with other wound -Current Size (cm) - Length 1.5 1 1 -Current Size (cm) - Width 1.0 0.8 0.9 -Current Size (cm) - Depth 0.4 0.5 0.4 -Total Square Cm 1.50 0.8 0.9 -Date of Last Picture (Recall this 02/24/25 03/03/25 field) -Photo Taken Yes Yes -Epithelialization Small 1-33% -Tunneling No -Undermining/Tunneling No -Circular Undermining No -Exudate Amt Small Small Medium -Exudate Type Yellow/Green Serosanguineous Serosanguineous -Wound Margin Distinct, Flat & Intact Outline Attached -Granulation Amt Medium (34-66%) Medium (34-66%) Medium (34-66%) -Granulation Quality Red Red -Slough/Fibrin Yes Yes Yes -Necrosis Amt Small (1-33%) Medium (34-66%) -Necrotic Tissue Type Adherent Slough Adherent Slough Adherent Slough -Structure Exposed -Texture ([place]-wound Skin Appearance) No Abnormality, Excoriation Assessed Assessed -Moisture ([place]-wound Skin Appearance) No Abnormality, No Abnormality Dry/Scaly Assessed -Color ([place]-wound Skin Appearance) No Abnormality, No Abnormality Assessed Assessed -Temperature ([place]-wound Skin No Abnormality No Abnormality No Abnormality Appearance) (Pt Warm) (Pt Warm) (Pt Warm) -Tenderness on Palpation ([place]-wound Yes Yes Yes Skin Appearance) -Ulcer Cleansing Soap and Water Soap and Water Rinsed/ Irrigated with Saline -Foul Odor after Cleansing Yes No No -Anesthetic Used 5% Lidocaine 5% Lidocaine 5% Lidocaine Gel Gel Gel Lower Limb Edema Present Yes Right Calf (cm) 36.5 Right Ankle (cm) 23.5 Left Calf (cm) 36.5 Left Ankle (cm) 23.5 03/17/25 09:36 Wound Center Nurse 1 #2 Left lateral Ankle -Combined with other wound No -Current Size (cm) - Length 1.2 -Current Size (cm) - Width 0.7 -Current Size (cm) - Depth 0.1 -Total Square Cm 0.84 -Date of Last Picture (Recall this field) -Photo Taken Yes -Epithelialization -Tunneling -Undermining/Tunneling No -Circular Undermining -Exudate Amt Medium -Exudate Type Serosanguineous -Wound Margin Distinct, Outline Attached -Granulation Amt Medium (34-66%) -Granulation Quality Luther -Slough/Fibrin Yes -Necrosis Amt Small (1-33%) -Necrotic Tissue Type Adherent Slough -Structure Exposed N/A -Texture ([place]-wound Skin Appearance) Assessed -Moisture ([place]-wound Skin Appearance) Maceration -Color ([place]-wound Skin Appearance) Assessed -Temperature ([place]-wound Skin No Abnormality Appearance) (Pt Warm) -Tenderness on Palpation ([place]-wound No Skin Appearance) -Ulcer Cleansing Wound Cleanser -Foul Odor after Cleansing No -Anesthetic Used 5% Lidocaine Gel #1 Right lateral Ankle -Combined with other wound No -Current Size (cm) - Length 1.5 -Current Size (cm) - Width 1.2 -Current Size (cm) - Depth 0.5 -Total Square Cm 1.80 -Date of Last Picture (Recall this field) -Photo Taken Yes -Epithelialization -Tunneling No -Undermining/Tunneling No -Circular Undermining No -Exudate Amt Medium -Exudate Type Serosanguineous -Wound Margin Thickened & Rolled Under -Granulation Amt Medium (34-66%) -Granulation Quality Luther -Slough/Fibrin Yes -Necrosis Amt Medium (34-66%) -Necrotic Tissue Type Adherent Slough -Structure Exposed N/A -Texture ([place]-wound Skin Appearance) Assessed -Moisture ([place]-wound Skin Appearance) Maceration -Color ([place]-wound Skin Appearance) Assessed -Temperature ([place]-wound Skin No Abnormality Appearance) (Pt Warm) -Tenderness on Palpation ([place]-wound No Skin Appearance) -Ulcer Cleansing Wound Cleanser -Foul Odor after Cleansing -Anesthetic Used 5% Lidocaine Gel Lower Limb Edema Present Right Calf (cm) Right Ankle (cm) Left Calf (cm) Left Ankle (cm) WC - Nurse 2 - General Ulcer CM Notes Start: 02/24/25 10:29 Freq: Status: Active Protocol: Activity Type Activity Date Activity User E-sign Co-sign Detail Recorded Client Recorded Date Recorded By Document 02/24/25 12:04 [id number] 02/24/25 12:06 Document 03/03/25 09:54 [id number] 03/03/25 09:59 Document 03/10/25 09:51 [id number] 03/10/25 09:56 Document 03/17/25 10:01 [id number] 03/17/25 10:05 02/24/25 03/03/25 03/10/25 12:04 09:54 09:51 Wound Center Nurse 2 #2 Left lateral Ankle -Time 12:04 09:56 09:52 -Correct Patient Yes Yes Yes -Correct Side, Site, Position Yes Yes Yes -Correct Procedure Yes Yes Yes -Procedure Performed Yes Yes Yes -Type of Procedure Debridement Debridement Debridement -Clinical Debridement Subcutaneous Subcutaneous Subcutaneous -Tissue Removed Subcutaneous Subcutaneous Subcutaneous -Post Debridement (cm) - Length 1.8 1.6 1.7 -Post Debridement (cm) - Width 1.4 0.8 1.0 -Post Debridement (cm) - Depth 0.1 0.1 0.1 -Total Square (Post) (cm) 2.52 1.28 1.70 -Area of Debridement (cm) - Length 1.8 1.6 1.7 -Area of Debridement (cm) - Width 1.4 0.8 1.0 -Total Square (Area) (cm) 2.52 1.28 1.70 -Tunneling No No No -Undermining/Tunneling No No No -Circular Undermining No No No -Wound/Ulcer Outcome Not Healed Not Healed Not Healed -Ulcer Cleansing Rinsed/ Rinsed/ Rinsed/ Irrigated with Irrigated with Irrigated with Saline Saline Saline -Foul Odor after Cleansing No No No -Bioengineered Tissue No No No -Bleeding Controlled with Pressure Pressure Pressure -Treatment Response Procedure Procedure Procedure Tolerated Well Tolerated Well Tolerated Well -Offloading No No Yes -Type of Offloading Other -Other Type of Offloading pravelon boots -Debridement - Subq, 1st 20sq cm Yes Yes Yes #1 Right lateral Ankle -Time 12:05 09:56 09:52 -Correct Patient Yes Yes Yes -Correct Side, Site, Position Yes Yes Yes -Correct Procedure Yes Yes Yes -Procedure Performed Yes Yes Yes -Type of Procedure Debridement Debridement Debridement -Clinical Debridement Muscle / Fascia Muscle / Fascia Muscle / Fascia -Tissue Removed Muscle Muscle,Fascia Muscle -Post Debridement (cm) - Length 1.7 1.3 1.2 -Post Debridement (cm) - Width 1.8 1.2 1.3 -Post Debridement (cm) - Depth 0.3 0.4 0.6 -Total Square (Post) (cm) 3.06 1.56 1.56 -Area of Debridement (cm) - Length 1.7 1.3 1.2 -Area of Debridement (cm) - Width 1.8 1.2 1.3 -Total Square (Area) (cm) 3.06 1.56 1.56 -Tunneling No No No -Undermining/Tunneling No No No -Circular Undermining No No No -Wound/Ulcer Outcome Not Healed Not Healed Not Healed -Ulcer Cleansing Rinsed/ Rinsed/ Rinsed/ Irrigated with Irrigated with Irrigated with Saline Saline Saline -Foul Odor after Cleansing No No No -Bioengineered Tissue No No No -Type of Bioengineered Tissue -Expiration Date -Product Lot Number -Percent Used -Lot number of Saline Used -Bleeding Controlled with Pressure Pressure Pressure -Treatment Response Procedure Procedure Procedure Tolerated Well Tolerated Well Tolerated Well -Offloading No No Yes -Type of Offloading Other -Other Type of Offloading prevalon -Debridement - Muscle / Fascia, 1st Yes Yes Yes 20sq cm -Apply Skin Sub - 1st 25 sq cm - Legs -Epicord Application 1-4 (per sq cm) Pain Scale: 0-10 Numeric Is Patient Pain Free? Yes Yes Yes 03/17/25 10:01 Wound Center Nurse 2 #2 Left lateral Ankle -Time 10:01 -Correct Patient Yes -Correct Side, Site, Position Yes -Correct Procedure Yes -Procedure Performed Yes -Type of Procedure Debridement -Clinical Debridement Subcutaneous -Tissue Removed Subcutaneous -Post Debridement (cm) - Length 1.5 -Post Debridement (cm) - Width 0.9 -Post Debridement (cm) - Depth 0.1 -Total Square (Post) (cm) 1.35 -Area of Debridement (cm) - Length 1.5 -Area of Debridement (cm) - Width 0.9 -Total Square (Area) (cm) 1.35 -Tunneling No -Undermining/Tunneling No -Circular Undermining No -Wound/Ulcer Outcome Not Healed -Ulcer Cleansing Rinsed/ Irrigated with Saline -Foul Odor after Cleansing No -Bioengineered Tissue No -Bleeding Controlled with Pressure -Treatment Response Procedure Tolerated Well -Offloading No -Type of Offloading -Other Type of Offloading -Debridement - Subq, 1st 20sq cm Yes #1 Right lateral Ankle -Time 10:03 -Correct Patient Yes -Correct Side, Site, Position Yes -Correct Procedure Yes -Procedure Performed Yes -Type of Procedure Debridement -Clinical Debridement Muscle / Fascia -Tissue Removed Muscle -Post Debridement (cm) - Length 1.3 -Post Debridement (cm) - Width 1.2 -Post Debridement (cm) - Depth 0.4 -Total Square (Post) (cm) 1.56 -Area of Debridement (cm) - Length 1.3 -Area of Debridement (cm) - Width 1.2 -Total Square (Area) (cm) 1.56 -Tunneling No -Undermining/Tunneling No -Circular Undermining No -Wound/Ulcer Outcome Not Healed -Ulcer Cleansing Rinsed/ Irrigated with Saline -Foul Odor after Cleansing No -Bioengineered Tissue Yes -Type of Bioengineered Tissue Epicord -Expiration Date 05/27/29 -Product Lot Number [id number] -Percent Used 100 -Lot number of Saline Used [id number] -Bleeding Controlled with Pressure -Treatment Response Procedure Tolerated Well -Offloading No -Type of Offloading -Other Type of Offloading -Debridement - Muscle / Fascia, 1st No 20sq cm -Apply Skin Sub - 1st 25 sq cm - Legs 1 -Epicord Application 1-4 (per sq cm) 6 Pain Scale: 0-10 Numeric Is Patient Pain Free? Yes WC - Nurse 3 - General Ulcer D/C NN Start: 02/24/25 10:29 Freq: Status: Active Protocol: Activity Type Activity Date Activity User E-sign Co-sign Detail Recorded Client Recorded Date Recorded By Document 02/24/25 11:44 GM [id number] 02/24/25 11:45 GM Document 03/03/25 10:21 GM [id number] 03/03/25 10:22 GM Document 03/10/25 10:01 ML [id number] 03/10/25 10:20 ML Document 03/17/25 10:19 MT [id number] 03/17/25 10:30 MT 02/24/25 03/03/25 03/10/25 11:44 10:21 10:01 Wound Care Center Nurse 3 #2 Left lateral Ankle -Ulcer Cleansing Not Cleansed Not Cleansed Rinsed/ Irrigated with Saline -Foul Odor after Cleansing No No No -Primary Dressing Applied Silvercel Silvercel Silvercel -Primary Dressing Covered/Secured with Dry Gauze & Dry Gauze & Dry Gauze & Roll Gauze, Roll Gauze, Roll Gauze, Secured with Secured with Secured with Tape Tape Tape -Silicone Border Foam 4x4 -Silvercel 1 1 1 #1 Right lateral Ankle -Ulcer Cleansing Not Cleansed Not Cleansed Rinsed/ Irrigated with Saline -Foul Odor after Cleansing No No -Primary Dressing Applied Silvercel -Other Dressing part of the silvercel -Primary Dressing Covered/Secured with Dry Gauze & Dry Gauze & Dry Gauze & Roll Gauze, Roll Gauze, Roll Gauze, Secured with Secured with Secured with Tape Tape Tape -Other Covering piece of silvercel -Silicone Border Foam 4x4 -Silvercel 1 BLE -Tubular Bandage Single Layer Single Layer -Size of Tubigrip Used Size D Size E -Size D ($) 2 -Size E ($) 1 Pain Scale: 0-10 Numeric Is Patient Pain Free? Yes Yes Yes WC - Visit Discharge Discharge Condition Stable Stable Ambulatory Status Wheelchair Wheelchair Transportation Private Auto Private Auto 03/17/25 10:19 Wound Care Center Nurse 3 #2 Left lateral Ankle -Ulcer Cleansing -Foul Odor after Cleansing -Primary Dressing Applied Silicone Border Foam 4x4, Silvercel -Primary Dressing Covered/Secured with -Silicone Border Foam 4x4 1 -Silvercel 1 #1 Right lateral Ankle -Ulcer Cleansing -Foul Odor after Cleansing -Primary Dressing Applied Silicone Border Foam 4x4 -Other Dressing -Primary Dressing Covered/Secured with -Other Covering -Silicone Border Foam 4x4 1 -Silvercel BLE -Tubular Bandage Single Layer -Size of Tubigrip Used Size D -Size D ($) 1 -Size E ($) Pain Scale: 0-10 Numeric Is Patient Pain Free? Yes WC - Visit Discharge Discharge Condition Ambulatory Status Transportation Additional Wound Wound debrided: Left ankle (lateral) Type of Debridement: Excisional debridement Depth: Down to and including healthy tissue and in the subcutaneous layer Percentage of wound debrided: 100 Instrument Used: 5mm curette Tissue Removed: Devitalized tissue Severity: Fat Layer Exposed Amount of bleeding with debridement: Mild Bleeding Controlled with: Pressure Patient tolerated procedure: Patient tolerated procedure well Assessment/Plan Assessment/Plan (1) Non-pressure chronic ulcer of right ankle with necrosis of muscle: CODE(S): L97.313 - Non-pressure chronic ulcer of right ankle with necrosis of muscle PLAN: Patient was examined and evaluated. All findings were discussed with the patient. All questions were answered to the patient satisfaction. Excisional debridement down to including subcutaneous tissue with a number 3 mm dermal curette to the left lateral ankle done without incident. Predebridement measurement was 1.4 x 0.7 x 0.1 cm. Postdebridement measurement is 1.5 x 0.9 x 0.1 cm. Excisional debridement down to and including subcutaneous tissue, fascia and muscle of the right full-thickness wound to the right lateral ankle done with a number 3 mm dermal curette without incident. Predebridement measurement was 1.1 x 1.1 x 0.2 cm. Postdebridement measurement is 1.3 x 1.2 x 0.4 cm. Epicord graft 2.0 x 3.0 cm was applied to the full-thickness wound to the lateral right ankle. Wound base was granular with no concern for infection. 100% use of the graft. First application. There is no evidence of exposed bone or tendon. There is no concern for infection. The area was dressed with bolster dressing dry sterile dressing and Tubigrip to the right lower extremity. The left lower extremity full-thickness wound was dressed with silver alginate dry sterile dressing and compression wrap. They will change daily. Patient will follow-up with Dr. Ahmadi in 1 week (2) Non-healing ulcer of left ankle with fat layer exposed: CODE(S): L97.322 - Non-pressure chronic ulcer of left ankle with fat layer exposed
[2025-03-24 09:18] VITALS: BP 114/75; PULSE 88; RESP 17; TEMP 36.5
--- NOTE | 2025-03-24 11:37 | PCM.WC.PN ---
History of Present Illness Date of Service: 03/24/25 Chief Complaint: Bilateral Foot Ulcers. History of Wound: Mr. Howe is a 69 yo referred to the wound center by his vascular surgery PA due to non healing bilateral ankle/foot ulcer. He is a poor historian due to memory impairment/dementia. Currently resides in a nursing facility. Per vascular surgery documentation, right lower extremity ulcer is chronic and left is more recent but has been present for months. Had imaging done including a CTA with no significant focal stenosis and three-vessel runoff. Also recently had repeat lower extremity arterial studies with no significant concerns noted. No indication for vascular intervention per documentation. History of diabetes mellitus type 2, no recent labs Progress of Wound: Full-thickness wound to the bilateral lateral ankle, redness improving to the right ankle, wounds are stable Subjective Subjective Patient is 69-year-old diabetic male presented to clinic today follow-up evaluation of the bilateral lateral full-thickness wounds to the ankle. Patient has been offloading as discussed. He has left the dressing clean dry and intact to the right lower extremity with amnion skin graft substitute. He has been getting dressing change to left lower extremity with silver alginate. Wounds are improving. He denies any pain. Denies trauma. Denies constitutional symptoms. No other pedal complaints at this time. Objective Data Objective Data Vital Signs: Vital Signs Temp Pulse Resp BP O2 Del Method 97.7 F L 88 17 114/75 Room Air 03/24/25 09:18 03/24/25 09:18 03/24/25 09:18 03/24/25 09:18 03/24/25 09:18 Oxygen Delivery Method Room Air Lab / Micro Data Micro: Microbiology 02/24/25 11:30 Wound - Ankle Gram Stain - Final 02/24/25 11:30 Wound - Ankle Wound Culture - Final No growth aerobically. 02/24/25 11:30 Wound - Ankle Anaerobic Culture - Final No anaerobic bacteria isolated. Charges/Coding Procedures Integumentary [id number]: [id number] Marilia subq tissue 20 sq cm/< Physical Exam Narrative Vascular: DP and PT pulses are palpable. CFT is brisk. Skin temp gradient is warm to warm from proximal ankles to distal digits to the bilateral lower extremity. No erythema. Neurological: Light touch is intact. Patient does respond to painful stimuli. Dermatological: Full-thickness wound to the lateral right ankle measuring 1.2 x 0.9 x 0.4 cm. Wound base is granular with negative probe to bone. Evidence of full-thickness wound to the lateral left ankle measuring 1.0 x 0.6 x 0.1 cm. Wound base is granular with no sign of infection. Excisional debridement down to including subcutaneous tissue with a number 3 mm dermal curette to the left lateral ankle done without incident. Predebridement measurement was 0.9 x 0.5 x 0.1 cm. Postdebridement measurement is 1.0 x 0.6 x 0.1 cm. Excisional debridement down to and including subcutaneous tissue, fascia and muscle of the right full-thickness wound to the right lateral ankle done with a number 3 mm dermal curette without incident. Predebridement measurement was 1.1 x 0.8 x 0.2 cm. Postdebridement measurement is 1.2 x 0.9 x 0.4 cm. Epicord graft 2.0 x 3.0 cm was applied to the full-thickness wound to the lateral right ankle. Wound base was granular with no concern for infection. 100% use of the graft. Second application. There is no evidence of exposed bone or tendon. There is no concern for infection. The area was dressed with bolster dressing dry sterile dressing and Tubigrip to the right lower extremity. Musculoskeletal: Mild pain to palpation to the full-thickness wound to the bilateral lower extremity. No pain with calf pressure. Debridement Note Debridement Note Debridement Free Text: Excisional debridement down to including subcutaneous tissue with a number 3 mm dermal curette to the left lateral ankle done without incident. Predebridement measurement was 0.9 x 0.5 x 0.1 cm. Postdebridement measurement is 1.0 x 0.6 x 0.1 cm. Excisional debridement down to and including subcutaneous tissue, fascia and muscle of the right full-thickness wound to the right lateral ankle done with a number 3 mm dermal curette without incident. Predebridement measurement was 1.1 x 0.8 x 0.2 cm. Postdebridement measurement is 1.2 x 0.9 x 0.4 cm. Epicord graft 2.0 x 3.0 cm was applied to the full-thickness wound to the lateral right ankle. Wound base was granular with no concern for infection. 100% use of the graft. Second application. There is no evidence of exposed bone or tendon. There is no concern for infection. The area was dressed with bolster dressing dry sterile dressing and Tubigrip to the right lower extremity. Post-Debridement Measurements and Additional Note: Post-Debridement Measurements/Treatment - Nurse 1 - General Ulcer Assessment Start: 02/24/25 10:29 Freq: Status: Active Protocol: [email or web address] Activity Type Activity Date Activity User E-sign Co-sign Detail Recorded Client Recorded Date Recorded By Document 02/24/25 10:38 GM [id number] 02/24/25 10:50 GM Document 03/03/25 09:37 GM [id number] 03/03/25 09:47 GM Document 03/10/25 09:32 ML [id number] 03/10/25 09:41 ML Document 03/17/25 09:36 TS [id number] 03/17/25 09:44 TS Document 03/24/25 09:18 TS [id number] 03/24/25 09:36 TS 02/24/25 03/03/25 03/10/25 10:38 09:37 09:32 - Today's Visit Information Type of service Follow-up Visit Follow-up Visit Follow-up Visit (Physician/BUSINESS EDUCATION INSTRUCTOR (Physician/BUSINESS EDUCATION INSTRUCTOR (Physician/BUSINESS EDUCATION INSTRUCTOR ) ) ) Arrival Mode Wheelchair Wheelchair Wheelchair Transfer Assistance Manual Manual Manual Patient Identification Verified (Name & Yes Yes Yes ) Patient Requires Transmission-Based No Precautions Safety Precautions Vital Signs Temperature (97.8 F-99.1 F) 98.1 F 98.1 F 96.9 F L Temperature Source Temporal Temporal Temporal Pulse Rate (60-100) 79 90 77 Pulse Location Monitor Monitor Monitor Respiratory Rate (12-18) 16 16 14 Respiratory rate source Observation Observation Observation Oxygen Delivery Method Room Air Blood Pressure (90/60-120/80) 112/66 107/58 L 108/65 Blood Pressure Mean (mm Hg) 81 74 79 Source Monitor Monitor Monitor Position Semi-Fowlers Semi-Fowlers Sitting Blood Pressure Location Right Arm Right Arm Right Arm History Since Last Visit- (Skip if this is Patient's initial visit) Have you changed medications since your No No No last visit? Any new allergies or adverse reactions No No No Had a fall/change in ADL's that may No No No increase risk of falls Signs or symptoms of abuse and/or No No No neglect since last visit Have you been in the hospital since your No No No last visit? Has dressing in place as prescribed Yes Yes Yes Has compression in place as prescribed No N/A No Has offloadiing in place as prescribed N/A N/A N/A Experienced any changes in pain level or No No No management Left Footwear Regular Shoe Right Footwear Regular Shoe Pain Scale: 0-10 Numeric Is Patient Pain Free? Yes Yes Yes 03/17/25 03/24/25 09:36 09:18 - Today's Visit Information Type of service Follow-up Visit Follow-up Visit (Physician/BUSINESS EDUCATION INSTRUCTOR (Physician/BUSINESS EDUCATION INSTRUCTOR ) ) Arrival Mode Wheelchair Wheelchair Transfer Assistance Manual Patient Identification Verified (Name & Yes Yes ) Patient Requires Transmission-Based No No Precautions Safety Precautions Fall Prevention Vital Signs Temperature (97.8 F-99.1 F) 98.0 F 97.7 F L Temperature Source Temporal Temporal Pulse Rate (60-100) 84 88 Pulse Location Monitor Monitor Respiratory Rate (12-18) 20 H 17 Respiratory rate source Observation Observation Oxygen Delivery Method Room Air Blood Pressure (90/60-120/80) 114/75 Blood Pressure Mean (mm Hg) 88 Source Position Semi-Fowlers Blood Pressure Location Right Arm History Since Last Visit- (Skip if this is Patient's initial visit) Have you changed medications since your No No last visit? Any new allergies or adverse reactions No No Had a fall/change in ADL's that may No No increase risk of falls Signs or symptoms of abuse and/or No No neglect since last visit Have you been in the hospital since your No No last visit? Has dressing in place as prescribed Yes Yes Has compression in place as prescribed N/A Yes Has offloadiing in place as prescribed N/A N/A Experienced any changes in pain level or No No management Left Footwear Removable Cast Walker/Walking Boot Right Footwear Regular Shoe Regular Shoe Pain Scale: 0-10 Numeric Is Patient Pain Free? Yes Yes - Nurse 1 - General Ulcer Measurement Start: 02/24/25 10:29 Freq: Status: Active Protocol: Activity Type Activity Date Activity User E-sign Co-sign Detail Recorded Client Recorded Date Recorded By Document 02/24/25 10:38 [id number] 02/24/25 10:50 Document 03/03/25 09:37 GM [id number] 03/03/25 09:47 GM Document 03/10/25 09:32 ML [id number] 03/10/25 09:41 ML Document 03/17/25 09:36 TS [id number] 03/17/25 09:44 TS Document 03/24/25 09:18 TS [id number] 03/24/25 09:36 TS 02/24/25 03/03/25 03/10/25 10:38 09:37 09:32 Wound Center Nurse 1 #2 Left lateral Ankle -Combined with other wound -Current Size (cm) - Length 2.0 1.3 1.4 -Current Size (cm) - Width 1.3 1 1 -Current Size (cm) - Depth 0.1 0.1 0.1 -Total Square Cm 2.60 1.3 1.4 -Date of Last Picture (Recall this 02/24/25 03/03/25 field) -Photo Taken Yes Yes -Epithelialization Small 1-33% Medium 34-66% -Tunneling No -Undermining/Tunneling No -Circular Undermining No -Exudate Amt Medium Small -Exudate Type Serosanguineous Serosanguineous Serosanguineous -Wound Margin Distinct, Flat & Intact Outline Attached -Granulation Amt Large (67-100%) Medium (34-66%) -Granulation Quality Red -Slough/Fibrin No -Necrosis Amt None Present (0 Medium (34-66%) %) -Necrotic Tissue Type -Structure Exposed -Texture ([place]-wound Skin Appearance) No Abnormality, Excoriation Assessed Assessed -Moisture ([place]-wound Skin Appearance) No Abnormality, Dry/Scaly Assessed,Dry/ Assessed Scaly -Color ([place]-wound Skin Appearance) No Abnormality, No Abnormality Assessed Assessed -Temperature ([place]-wound Skin No Abnormality No Abnormality No Abnormality Appearance) (Pt Warm) (Pt Warm) (Pt Warm) -Tenderness on Palpation ([place]-wound Yes Yes Yes Skin Appearance) -Ulcer Cleansing Soap and Water Soap and Water Rinsed/ Irrigated with Saline -Foul Odor after Cleansing Yes No No -Anesthetic Used 5% Lidocaine 5% Lidocaine 5% Lidocaine Gel Gel Gel #1 Right lateral Ankle -Combined with other wound -Current Size (cm) - Length 1.5 1 1 -Current Size (cm) - Width 1.0 0.8 0.9 -Current Size (cm) - Depth 0.4 0.5 0.4 -Total Square Cm 1.50 0.8 0.9 -Date of Last Picture (Recall this 02/24/25 03/03/25 field) -Photo Taken Yes Yes -Epithelialization Small 1-33% -Tunneling No -Undermining/Tunneling No -Circular Undermining No -Exudate Amt Small Small Medium -Exudate Type Yellow/Green Serosanguineous Serosanguineous -Wound Margin Distinct, Flat & Intact Outline Attached -Granulation Amt Medium (34-66%) Medium (34-66%) Medium (34-66%) -Granulation Quality Red Red -Slough/Fibrin Yes Yes Yes -Necrosis Amt Small (1-33%) Medium (34-66%) -Necrotic Tissue Type Adherent Slough Adherent Slough Adherent Slough -Structure Exposed -Texture ([place]-wound Skin Appearance) No Abnormality, Excoriation Assessed Assessed -Moisture ([place]-wound Skin Appearance) No Abnormality, No Abnormality Dry/Scaly Assessed -Color ([place]-wound Skin Appearance) No Abnormality, No Abnormality Assessed Assessed -Temperature ([place]-wound Skin No Abnormality No Abnormality No Abnormality Appearance) (Pt Warm) (Pt Warm) (Pt Warm) -Tenderness on Palpation ([place]-wound Yes Yes Yes Skin Appearance) -Ulcer Cleansing Soap and Water Soap and Water Rinsed/ Irrigated with Saline -Foul Odor after Cleansing Yes No No -Anesthetic Used 5% Lidocaine 5% Lidocaine 5% Lidocaine Gel Gel Gel Lower Limb Edema Present Yes Right Calf (cm) 36.5 Right Ankle (cm) 23.5 Left Calf (cm) 36.5 Left Ankle (cm) 23.5 03/17/25 03/24/25 09:36 09:18 Wound Center Nurse 1 #2 Left lateral Ankle -Combined with other wound No No -Current Size (cm) - Length 1.2 1 -Current Size (cm) - Width 0.7 0.5 -Current Size (cm) - Depth 0.1 0.1 -Total Square Cm 0.84 0.5 -Date of Last Picture (Recall this 03/24/25 field) -Photo Taken Yes Yes -Epithelialization -Tunneling No -Undermining/Tunneling No No -Circular Undermining No -Exudate Amt Medium Small -Exudate Type Serosanguineous Serosanguineous -Wound Margin Distinct, Distinct, Outline Outline Attached Attached -Granulation Amt Medium (34-66%) Medium (34-66%) -Granulation Quality [place] -Slough/Fibrin Yes Yes -Necrosis Amt Small (1-33%) -Necrotic Tissue Type Adherent Slough Adherent Slough -Structure Exposed N/A None/Limited to Skin Breakdown -Texture ([place]-wound Skin Appearance) Assessed Assessed -Moisture ([place]-wound Skin Appearance) Maceration Assessed -Color ([place]-wound Skin Appearance) Assessed Assessed -Temperature ([place]-wound Skin No Abnormality No Abnormality Appearance) (Pt Warm) (Pt Warm) -Tenderness on Palpation ([place]-wound No Skin Appearance) -Ulcer Cleansing Wound Cleanser Soap and Water -Foul Odor after Cleansing No -Anesthetic Used 5% Lidocaine 5% Lidocaine Gel Gel #1 Right lateral Ankle -Combined with other wound No No -Current Size (cm) - Length 1.5 1.5 -Current Size (cm) - Width 1.2 1.2 -Current Size (cm) - Depth 0.5 0.2 -Total Square Cm 1.80 1.80 -Date of Last Picture (Recall this 03/24/25 field) -Photo Taken Yes Yes -Epithelialization Small 1-33% -Tunneling No No -Undermining/Tunneling No No -Circular Undermining No No -Exudate Amt Medium Small -Exudate Type Serosanguineous Serosanguineous -Wound Margin Thickened & Distinct, Rolled Under Outline Attached -Granulation Amt Medium (34-66%) Medium (34-66%) -Granulation Quality [place] -Slough/Fibrin Yes Yes -Necrosis Amt Medium (34-66%) Medium (34-66%) -Necrotic Tissue Type Adherent Slough Adherent Slough -Structure Exposed N/A None/Limited to Skin Breakdown -Texture ([place]-wound Skin Appearance) Assessed Assessed -Moisture ([place]-wound Skin Appearance) Maceration Assessed -Color ([place]-wound Skin Appearance) Assessed Assessed -Temperature ([place]-wound Skin No Abnormality No Abnormality Appearance) (Pt Warm) (Pt Warm) -Tenderness on Palpation ([place]-wound No Yes Skin Appearance) -Ulcer Cleansing Wound Cleanser Soap and Water -Foul Odor after Cleansing No -Anesthetic Used 5% Lidocaine 5% Lidocaine Gel Gel Lower Limb Edema Present Right Calf (cm) 34.4 Right Ankle (cm) 23 Left Calf (cm) 35.5 Left Ankle (cm) 23 WC - Nurse 2 - General Ulcer CM Notes Start: 02/24/25 10:29 Freq: Status: Active Protocol: Activity Type Activity Date Activity User E-sign Co-sign Detail Recorded Client Recorded Date Recorded By Document 02/24/25 12:04 [id number] 02/24/25 12:06 Document 03/03/25 09:54 [id number] 03/03/25 09:59 JF Document 03/10/25 09:51 JF [id number] 03/10/25 09:56 JF Document 03/17/25 10:01 [id number] 03/17/25 10:05 Document 03/24/25 09:51 [id number] 03/24/25 09:56 JF 02/24/25 03/03/25 03/10/25 12:04 09:54 09:51 Wound Center Nurse 2 #2 Left lateral Ankle -Time 12:04 09:56 09:52 -Correct Patient Yes Yes Yes -Correct Side, Site, Position Yes Yes Yes -Correct Procedure Yes Yes Yes -Procedure Performed Yes Yes Yes -Type of Procedure Debridement Debridement Debridement -Clinical Debridement Subcutaneous Subcutaneous Subcutaneous -Tissue Removed Subcutaneous Subcutaneous Subcutaneous -Post Debridement (cm) - Length 1.8 1.6 1.7 -Post Debridement (cm) - Width 1.4 0.8 1.0 -Post Debridement (cm) - Depth 0.1 0.1 0.1 -Total Square (Post) (cm) 2.52 1.28 1.70 -Area of Debridement (cm) - Length 1.8 1.6 1.7 -Area of Debridement (cm) - Width 1.4 0.8 1.0 -Total Square (Area) (cm) 2.52 1.28 1.70 -Tunneling No No No -Undermining/Tunneling No No No -Circular Undermining No No No -Wound/Ulcer Outcome Not Healed Not Healed Not Healed -Ulcer Cleansing Rinsed/ Rinsed/ Rinsed/ Irrigated with Irrigated with Irrigated with Saline Saline Saline -Foul Odor after Cleansing No No No -Bioengineered Tissue No No No -Bleeding Controlled with Pressure Pressure Pressure -Treatment Response Procedure Procedure Procedure Tolerated Well Tolerated Well Tolerated Well -Offloading No No Yes -Type of Offloading Other -Other Type of Offloading pravelon boots -Debridement - Subq, 1st 20sq cm Yes Yes Yes #1 Right lateral Ankle -Time 12:05 09:56 09:52 -Correct Patient Yes Yes Yes -Correct Side, Site, Position Yes Yes Yes -Correct Procedure Yes Yes Yes -Procedure Performed Yes Yes Yes -Type of Procedure Debridement Debridement Debridement -Clinical Debridement Muscle / Fascia Muscle / Fascia Muscle / Fascia -Tissue Removed Muscle Muscle,Fascia Muscle -Post Debridement (cm) - Length 1.7 1.3 1.2 -Post Debridement (cm) - Width 1.8 1.2 1.3 -Post Debridement (cm) - Depth 0.3 0.4 0.6 -Total Square (Post) (cm) 3.06 1.56 1.56 -Area of Debridement (cm) - Length 1.7 1.3 1.2 -Area of Debridement (cm) - Width 1.8 1.2 1.3 -Total Square (Area) (cm) 3.06 1.56 1.56 -Tunneling No No No -Undermining/Tunneling No No No -Circular Undermining No No No -Wound/Ulcer Outcome Not Healed Not Healed Not Healed -Ulcer Cleansing Rinsed/ Rinsed/ Rinsed/ Irrigated with Irrigated with Irrigated with Saline Saline Saline -Foul Odor after Cleansing No No No -Bioengineered Tissue No No No -Type of Bioengineered Tissue -Expiration Date -Product Lot Number -Percent Used -Lot number of Saline Used -Bleeding Controlled with Pressure Pressure Pressure -Treatment Response Procedure Procedure Procedure Tolerated Well Tolerated Well Tolerated Well -Offloading No No Yes -Type of Offloading Other -Other Type of Offloading prevalon -Debridement - Subq, 1st 20sq cm -Debridement - Muscle / Fascia, 1st Yes Yes Yes 20sq cm -Apply Skin Sub - 1st 25 sq cm - Legs -Epicord Application 1-4 (per sq cm) Pain Scale: 0-10 Numeric Is Patient Pain Free? Yes Yes Yes 03/17/25 03/24/25 10:01 09:51 Wound Center Nurse 2 #2 Left lateral Ankle -Time 10:01 09:53 -Correct Patient Yes Yes -Correct Side, Site, Position Yes Yes -Correct Procedure Yes Yes -Procedure Performed Yes Yes -Type of Procedure Debridement Debridement -Clinical Debridement Subcutaneous Subcutaneous -Tissue Removed Subcutaneous Subcutaneous -Post Debridement (cm) - Length 1.5 1.0 -Post Debridement (cm) - Width 0.9 0.6 -Post Debridement (cm) - Depth 0.1 0.1 -Total Square (Post) (cm) 1.35 0.60 -Area of Debridement (cm) - Length 1.5 1.0 -Area of Debridement (cm) - Width 0.9 0.6 -Total Square (Area) (cm) 1.35 0.60 -Tunneling No No -Undermining/Tunneling No No -Circular Undermining No No -Wound/Ulcer Outcome Not Healed Not Healed -Ulcer Cleansing Rinsed/ Rinsed/ Irrigated with Irrigated with Saline Saline -Foul Odor after Cleansing No No -Bioengineered Tissue No No -Bleeding Controlled with Pressure Pressure -Treatment Response Procedure Procedure Tolerated Well Tolerated Well -Offloading No No -Type of Offloading -Other Type of Offloading -Debridement - Subq, 1st 20sq cm Yes Yes #1 Right lateral Ankle -Time 10:03 09:54 -Correct Patient Yes Yes -Correct Side, Site, Position Yes Yes -Correct Procedure Yes Yes -Procedure Performed Yes Yes -Type of Procedure Debridement Debridement -Clinical Debridement Muscle / Fascia Subcutaneous -Tissue Removed Muscle Subcutaneous -Post Debridement (cm) - Length 1.3 1.2 -Post Debridement (cm) - Width 1.2 0.9 -Post Debridement (cm) - Depth 0.4 0.4 -Total Square (Post) (cm) 1.56 1.08 -Area of Debridement (cm) - Length 1.3 1.2 -Area of Debridement (cm) - Width 1.2 0.9 -Total Square (Area) (cm) 1.56 1.08 -Tunneling No No -Undermining/Tunneling No No -Circular Undermining No No -Wound/Ulcer Outcome Not Healed Not Healed -Ulcer Cleansing Rinsed/ Rinsed/ Irrigated with Irrigated with Saline Saline -Foul Odor after Cleansing No No -Bioengineered Tissue Yes Yes -Type of Bioengineered Tissue Epicord Epicord -Expiration Date 05/27/29 08/25/29 -Product Lot Number [id number] -Percent Used 100 100 -Lot number of Saline Used [id number] -Bleeding Controlled with Pressure Pressure -Treatment Response Procedure Procedure Tolerated Well Tolerated Well -Offloading No No -Type of Offloading -Other Type of Offloading -Debridement - Subq, 1st 20sq cm No -Debridement - Muscle / Fascia, 1st No 20sq cm -Apply Skin Sub - 1st 25 sq cm - Legs 1 1 -Epicord Application 1-4 (per sq cm) 6 6 Pain Scale: 0-10 Numeric Is Patient Pain Free? Yes Yes WC - Nurse 3 - General Ulcer D/C NN Start: 02/24/25 10:29 Freq: Status: Active Protocol: Activity Type Activity Date Activity User E-sign Co-sign Detail Recorded Client Recorded Date Recorded By Document 02/24/25 11:44 GM [id number] 02/24/25 11:45 GM Document 03/03/25 10:21 GM [id number] 03/03/25 10:22 GM Document 03/10/25 10:01 ML [id number] 03/10/25 10:20 ML Document 03/17/25 10:19 MT [id number] 03/17/25 10:30 MT Document 03/24/25 10:02 TS [id number] 03/24/25 10:08 TS 02/24/25 03/03/25 03/10/25 11:44 10:21 10:01 Wound Care Center Nurse 3 #2 Left lateral Ankle -Ulcer Cleansing Not Cleansed Not Cleansed Rinsed/ Irrigated with Saline -Foul Odor after Cleansing No No No -Primary Dressing Applied Silvercel Silvercel Silvercel -Primary Dressing Covered/Secured with Dry Gauze & Dry Gauze & Dry Gauze & Roll Gauze, Roll Gauze, Roll Gauze, Secured with Secured with Secured with Tape Tape Tape -Silicone Border Foam 4x4 -Silvercel 1 1 1 #1 Right lateral Ankle -Ulcer Cleansing Not Cleansed Not Cleansed Rinsed/ Irrigated with Saline -Foul Odor after Cleansing No No -Primary Dressing Applied Silvercel -Other Dressing part of the silvercel -Primary Dressing Covered/Secured with Dry Gauze & Dry Gauze & Dry Gauze & Roll Gauze, Roll Gauze, Roll Gauze, Secured with Secured with Secured with Tape Tape Tape -Other Covering piece of silvercel -Silicone Border Foam 4x4 -Silvercel 1 BLE -Tubular Bandage Single Layer Single Layer -Size of Tubigrip Used Size D Size E -Size D ($) 2 -Size E ($) 1 Pain Scale: 0-10 Numeric Is Patient Pain Free? Yes Yes Yes WC - Visit Discharge Discharge Condition Stable Stable Ambulatory Status Wheelchair Wheelchair Transportation Private Auto Private Auto Medication Reconcilliation completed & provided to patient/care provider Clinical Summary of Care Provided 03/17/25 03/24/25 10:19 10:02 Wound Care Center Nurse 3 #2 Left lateral Ankle -Ulcer Cleansing Rinsed/ Irrigated with Saline -Foul Odor after Cleansing -Primary Dressing Applied Silicone Border Silvercel Foam 4x4, Silvercel -Primary Dressing Covered/Secured with Dry Gauze & Roll Gauze, Secured with Tape -Silicone Border Foam 4x4 1 -Silvercel 1 1 #1 Right lateral Ankle -Ulcer Cleansing Rinsed/ Irrigated with Saline -Foul Odor after Cleansing -Primary Dressing Applied Silicone Border [place]cel Foam 4x4 -Other Dressing -Primary Dressing Covered/Secured with Dry Gauze & Roll Gauze, Secured with Tape -Other Covering -Silicone Border Foam 4x4 1 -Silvercel 0 BLE -Tubular Bandage Single Layer Single Layer -Size of Tubigrip Used Size D Size D -Size D ($) 1 1 -Size E ($) Pain Scale: 0-10 Numeric Is Patient Pain Free? Yes Yes WC - Visit Discharge Discharge Condition Stable Ambulatory Status Wheelchair Transportation Private Auto Medication Reconcilliation completed & No provided to patient/care provider Clinical Summary of Care Provided Yes Additional Wound Wound debrided: Left ankle (lateral) Type of Debridement: Excisional debridement Depth: Down to and including healthy tissue and in the subcutaneous layer Percentage of wound debrided: 100 Instrument Used: 5mm curette Tissue Removed: Devitalized tissue Severity: Fat Layer Exposed Amount of bleeding with debridement: Mild Bleeding Controlled with: Pressure Patient tolerated procedure: Patient tolerated procedure well Assessment/Plan Assessment/Plan (1) Non-pressure chronic ulcer of right ankle with necrosis of muscle: CODE(S): L97.313 - Non-pressure chronic ulcer of right ankle with necrosis of muscle PLAN: Patient was examined and evaluated. All findings were discussed with the patient. All questions were answered to the patient satisfaction. Excisional debridement down to including subcutaneous tissue with a number 3 mm dermal curette to the left lateral ankle done without incident. Predebridement measurement was 0.9 x 0.5 x 0.1 cm. Postdebridement measurement is 1.0 x 0.6 x 0.1 cm. Excisional debridement down to and including subcutaneous tissue, fascia and muscle of the right full-thickness wound to the right lateral ankle done with a number 3 mm dermal curette without incident. Predebridement measurement was 1.1 x 0.8 x 0.2 cm. Postdebridement measurement is 1.2 x 0.9 x 0.4 cm. Epicord graft 2.0 x 3.0 cm was applied to the full-thickness wound to the lateral right ankle. Wound base was granular with no concern for infection. 100% use of the graft. Second application. There is no evidence of exposed bone or tendon. There is no concern for infection. The area was dressed with bolster dressing dry sterile dressing and Tubigrip to the right lower extremity. The left lower extremity full-thickness wound was dressed with silver alginate dry sterile dressing and compression wrap. They will change daily. Patient will continue strict blood sugar control and offload. Patient will follow-up with Dr. Ahmadi in 1 week (2) Non-healing ulcer of left ankle with fat layer exposed: CODE(S): L97.322 - Non-pressure chronic ulcer of left ankle with fat layer exposed
--- NOTE | 2025-03-25 11:23 | WC ---
PHOTO-LEFT ANKLE 03/24/25
--- NOTE | 2025-03-25 11:25 | WC ---
PHOTO-RIGHT ANKLE 03/24/25
== END 2025-03-26 23:59 | disposition home or self-care (01) ==
LOC: WC 09:15
PROVIDERS: PCP Internal Medicine; Referring Provider Physician Assistant; Visit Provider Internal Medicine
DX: E11.622 Type 2 diabetes mellitus with other skin ulcer (principal); L97.313 Non-pressure chronic ulcer of right ankle with necrosis of muscle; L97.322 Non-pressure chronic ulcer of left ankle with fat layer exposed; F03.90 Unspecified dementia, unspecified severity, without behavioral disturbance, psychotic disturbance, mood disturbance, and anxiety; E11.22 Type 2 diabetes mellitus with diabetic chronic kidney disease; Z79.4 Long term (current) use of insulin; E78.5 Hyperlipidemia, unspecified; I12.9 Hypertensive chronic kidney disease with stage 1 through stage 4 chronic kidney disease, or unspecified chronic kidney disease; M25.571 Pain in right ankle and joints of right foot; Z79.02 Long term (current) use of antithrombotics/antiplatelets; Z79.85 Long-term (current) use of injectable non-insulin antidiabetic drugs; Z79.84 Long term (current) use of oral hypoglycemic drugs; N18.2 Chronic kidney disease, stage 2 (mild); Z87.891 Personal history of nicotine dependence; L03.119 Cellulitis of unspecified part of limb; I25.10 Atherosclerotic heart disease of native coronary artery without angina pectoris; Z79.82 Long term (current) use of aspirin; Z95.1 Presence of aortocoronary bypass graft; Z86.14 Personal history of Methicillin resistant Staphylococcus aureus infection
CPT/HCPCS: 11042; 11043; 15271; 87070; 87075; 87205; Q4187

== ENCOUNTER 2025-04-19 09:45 | Outpatient (RCR) | payer MEDICARE, MEDICAID, SELFPAY ==
[2025-03-31 09:45] VITALS: BP 87/52; PULSE 91; RESP 16; TEMP 36.6
--- NOTE | 2025-03-31 11:55 | PCM.WC.PN ---
History of Present Illness Date of Service: 03/31/25 Chief Complaint: Bilateral Foot Ulcers. History of Wound: Mr. Howe is a 69 yo referred to the wound center by his vascular surgery PA due to non healing bilateral ankle/foot ulcer. He is a poor historian due to memory impairment/dementia. Currently resides in a nursing facility. Per vascular surgery documentation, right lower extremity ulcer is chronic and left is more recent but has been present for months. Had imaging done including a CTA with no significant focal stenosis and three-vessel runoff. Also recently had repeat lower extremity arterial studies with no significant concerns noted. No indication for vascular intervention per documentation. History of diabetes mellitus type 2, no recent labs Progress of Wound: Improving full-thickness wounds to the lateral ankles bilateral. Subjective Subjective Patient is a 69-year-old diabetic male presented clinic today follow-up evaluation of full-thickness wound to the bilateral ankles. Patient has left the amniotic skin graft substitute clean dry and intact to the right lower extremity. He has been changing dressing to the left lower extremity as discussed. He denies any trauma. He is unsure if he is offloading as the nursing staff is informed. He denies any new onset of trauma. Denies constitutional symptoms. No other pedal complaints at this time. Objective Data Objective Data Vital Signs: Vital Signs Temp Pulse Resp BP 98 F 91 16 87/52 L 03/31/25 09:45 03/31/25 09:45 03/31/25 09:45 03/31/25 09:45 Lab / Micro Data Micro: Microbiology 02/24/25 11:30 Wound - Ankle Gram Stain - Final 02/24/25 11:30 Wound - Ankle Wound Culture - Final No growth aerobically. 02/24/25 11:30 Wound - Ankle Anaerobic Culture - Final No anaerobic bacteria isolated. Charges/Coding Procedures Integumentary [id number]: [id number] Marilia subq tissue 20 sq cm/< Physical Exam Narrative Vascular: DP and PT pulses are palpable. CFT is brisk. Skin temp gradient is warm to warm from proximal ankles to distal digits to the bilateral lower extremity. No erythema. Neurological: Light touch is intact. Patient does respond to painful stimuli. Dermatological: Full-thickness wound to the lateral right ankle measuring 1.1 x 0.9 x 0.3 cm. Wound base is granular with negative probe to bone. Evidence of full-thickness wound to the lateral left ankle measuring 1.2 x 0.4 x 0.1 cm. Wound base is granular with no sign of infection. Excisional debridement down to including subcutaneous tissue with a number 3 mm dermal curette to the left lateral ankle done without incident. Predebridement measurement was 1.0 x 0.2 x 0.1 cm. Postdebridement measurement is 1.2 x 0.4 x 0.1 cm. Excisional debridement down to and including subcutaneous tissue, fascia and muscle of the right full-thickness wound to the right lateral ankle done with a number 3 mm dermal curette without incident. Predebridement measurement was 1.0 x 0.7 x 0.2 cm. Postdebridement measurement is 1.1 x 0.9 x 0.3 cm. Epicord graft 2.0 x 3.0 cm was applied to the full-thickness wound to the lateral right ankle. Wound base was granular with no concern for infection. 100% use of the graft. Third application. There is no evidence of exposed bone or tendon. There is no concern for infection. The area was dressed with bolster dressing dry sterile dressing and Tubigrip to the right lower extremity. Musculoskeletal: Mild pain to palpation to the full-thickness wound to the bilateral lower extremity. No pain with calf pressure. Debridement Note Debridement Note Debridement Free Text: Excisional debridement down to including subcutaneous tissue with a number 3 mm dermal curette to the left lateral ankle done without incident. Predebridement measurement was 1.0 x 0.2 x 0.1 cm. Postdebridement measurement is 1.2 x 0.4 x 0.1 cm. Excisional debridement down to and including subcutaneous tissue, fascia and muscle of the right full-thickness wound to the right lateral ankle done with a number 3 mm dermal curette without incident. Predebridement measurement was 1.0 x 0.7 x 0.2 cm. Postdebridement measurement is 1.1 x 0.9 x 0.3 cm. Epicord graft 2.0 x 3.0 cm was applied to the full-thickness wound to the lateral right ankle. Wound base was granular with no concern for infection. 100% use of the graft. Third application. There is no evidence of exposed bone or tendon. There is no concern for infection. The area was dressed with bolster dressing dry sterile dressing and Tubigrip to the right lower extremity. Post-Debridement Measurements and Additional Note: Post-Debridement Measurements/Treatment JOIE - Nurse 1 - General Ulcer Assessment Start: 03/31/25 09:45 Freq: Status: Active Protocol: OFE Activity Type Activity Date Activity User E-sign Co-sign Detail Recorded Client Recorded Date Recorded By Document 03/31/25 09:45 ESTEPHANIA [id number] 03/31/25 09:50 CP 03/31/25 09:45 WC - Today's Visit Information Type of service Follow-up Visit (Physician/[employer] ) Arrival Mode Wheelchair Transfer Assistance Manual Transfer Assist (Other) 2 Patient Identification Verified (Name & Yes ) Patient Requires Transmission-Based No Precautions Safety Precautions Fall Prevention Vital Signs Temperature (97.8 F-99.1 F) 98 F Temperature Source Temporal Pulse Rate (60-100) 91 Pulse Location Monitor Respiratory Rate (12-18) 16 Respiratory rate source Observation Blood Pressure (90/60-120/80) 87/52 L Blood Pressure Mean (mm Hg) 63 Source Monitor Position Sitting Blood Pressure Location Right Forearm History Since Last Visit- (Skip if this is Patient's initial visit) Have you changed medications since your No last visit? Any new allergies or adverse reactions No Had a fall/change in ADL's that may No increase risk of falls Signs or symptoms of abuse and/or No neglect since last visit Has dressing in place as prescribed Yes Has compression in place as prescribed N/A Has offloadiing in place as prescribed N/A Experienced any changes in pain level or No management Pain Scale: 0-10 Numeric Is Patient Pain Free? Yes - Nurse 1 - General Ulcer Measurement Start: 03/31/25 09:45 Freq: Status: Active Protocol: Activity Type Activity Date Activity User E-sign Co-sign Detail Recorded Client Recorded Date Recorded By Document 03/31/25 09:45 [email or web address] [id number] 03/31/25 09:50 CP 03/31/25 09:45 Wound Center Nurse 1 #2 Left lateral Ankle -Current Size (cm) - Length 0.3 -Current Size (cm) - Width 0.5 -Current Size (cm) - Depth 0.1 -Total Square Cm 0.15 -Date of Last Picture (Recall this 03/31/25 field) -Epithelialization None Present -Tunneling No -Undermining/Tunneling No -Change in Wound Grade/Stage No -Exudate Amt Small -Exudate Type Serosanguineous -Wound Margin Flat & Intact -Granulation Amt None Present (0 %) -Slough/Fibrin Yes -Necrosis Amt Large (67-100%) -Necrotic Tissue Type Adherent Slough -Structure Exposed N/A -Texture ([place]-wound Skin Appearance) No Abnormality -Moisture ([place]-wound Skin Appearance) No Abnormality -Color ([place]-wound Skin Appearance) No Abnormality -Temperature ([place]-wound Skin No Abnormality Appearance) (Pt Warm) -Tenderness on Palpation ([place]-wound No Skin Appearance) -Ulcer Cleansing Rinsed/ Irrigated with Saline -Foul Odor after Cleansing No -Anesthetic Used 5% Lidocaine Gel #1 Right lateral Ankle -Current Size (cm) - Length 0.3 -Current Size (cm) - Width 0.5 -Current Size (cm) - Depth 0.3 -Total Square Cm 0.15 -Date of Last Picture (Recall this 03/31/25 field) -Epithelialization None Present -Tunneling No -Undermining/Tunneling No -Exudate Amt Small -Exudate Type Serosanguineous -Wound Margin Flat & Intact -Granulation Amt None Present (0 %) -Slough/Fibrin Yes -Necrosis Amt Large (67-100%) -Necrotic Tissue Type Adherent Slough -Structure Exposed N/A -Texture ([place]-wound Skin Appearance) No Abnormality -Moisture ([place]-wound Skin Appearance) No Abnormality -Color ([place]-wound Skin Appearance) No Abnormality -Temperature ([place]-wound Skin No Abnormality Appearance) (Pt Warm) -Tenderness on Palpation ([place]-wound No Skin Appearance) -Ulcer Cleansing Rinsed/ Irrigated with Saline -Foul Odor after Cleansing No -Anesthetic Used 5% Lidocaine Gel WC - Nurse 2 - General Ulcer CM Notes Start: 03/31/25 09:45 Freq: Status: Active Protocol: Activity Type Activity Date Activity User E-sign Co-sign Detail Recorded Client Recorded Date Recorded By Document 03/31/25 10:00 DARWIN [id number] 03/31/25 10:04 DARWIN 03/31/25 10:00 Wound Center Nurse 2 #2 Left lateral Ankle -Time 10:00 -Correct Patient Yes -Correct Side, Site, Position Yes -Correct Procedure Yes -Procedure Performed Yes -Type of Procedure Debridement -Clinical Debridement Subcutaneous -Tissue Removed Subcutaneous -Post Debridement (cm) - Length 1.2 -Post Debridement (cm) - Width 0.4 -Post Debridement (cm) - Depth 0.1 -Total Square (Post) (cm) 0.48 -Area of Debridement (cm) - Length 1.2 -Area of Debridement (cm) - Width 0.4 -Total Square (Area) (cm) 0.48 -Tunneling No -Undermining/Tunneling No -Circular Undermining No -Wound/Ulcer Outcome Not Healed -Ulcer Cleansing Rinsed/ Irrigated with Saline -Foul Odor after Cleansing No -Bioengineered Tissue No -Bleeding Controlled with Pressure -Treatment Response Procedure Tolerated Well -Offloading No -Debridement - Subq, 1st 20sq cm Yes #1 Right lateral Ankle -Time 10:00 -Correct Patient Yes -Correct Side, Site, Position Yes -Correct Procedure Yes -Procedure Performed Yes -Type of Procedure Debridement -Clinical Debridement Muscle / Fascia -Tissue Removed Muscle -Post Debridement (cm) - Length 1.1 -Post Debridement (cm) - Width 0.9 -Post Debridement (cm) - Depth 0.3 -Total Square (Post) (cm) 0.99 -Area of Debridement (cm) - Length 1.1 -Area of Debridement (cm) - Width 0.9 -Total Square (Area) (cm) 0.99 -Tunneling No -Undermining/Tunneling No -Circular Undermining No -Wound/Ulcer Outcome Not Healed -Ulcer Cleansing Rinsed/ Irrigated with Saline -Foul Odor after Cleansing No -Bioengineered Tissue Yes -Type of Bioengineered Tissue Epicord -Expiration Date 08/25/29 -Product Lot Number [id number] -Percent Used 100 -Lot number of Saline Used [id number] -Bleeding Controlled with Pressure -Treatment Response Procedure Tolerated Well -Offloading No -Debridement - Muscle / Fascia, 1st No 20sq cm -Apply Skin Sub - 1st 25 sq cm - Legs 1 -Epicord Application 1-4 (per sq cm) 6 Pain Scale: 0-10 Numeric Is Patient Pain Free? Yes WC - Nurse 3 - General Ulcer D/C NN Start: 03/31/25 09:45 Freq: Status: Active Protocol: Activity Type Activity Date Activity User E-sign Co-sign Detail Recorded Client Recorded Date Recorded By Document 03/31/25 10:15 [id number] 03/31/25 10:27 TS 03/31/25 10:15 Wound Care Center Nurse 3 #2 Left lateral Ankle -Other Dressing abd -Primary Dressing Covered/Secured with Dry Gauze & Roll Gauze, Secured with Tape #1 Right lateral Ankle -Other Dressing abd -Primary Dressing Covered/Secured with Dry Gauze & Roll Gauze, Secured with Tape BLE -Tubular Bandage Single Layer -Size of Tubigrip Used Size D -Size D ($) 2 Pain Scale: 0-10 Numeric Is Patient Pain Free? Yes WC - Visit Discharge Discharge Condition Stable Ambulatory Status Wheelchair Transportation Ambulance Medication Reconcilliation completed & No provided to patient/care provider Clinical Summary of Care Provided Yes Additional Wound Wound debrided: Left ankle (lateral) Type of Debridement: Excisional debridement Depth: Down to and including healthy tissue and in the subcutaneous layer Percentage of wound debrided: 100 Instrument Used: 5mm curette Tissue Removed: Devitalized tissue Severity: Fat Layer Exposed Amount of bleeding with debridement: Mild Bleeding Controlled with: Pressure Patient tolerated procedure: Patient tolerated procedure well Assessment/Plan Assessment/Plan (1) Non-pressure chronic ulcer of right ankle with necrosis of muscle: CODE(S): L97.313 - Non-pressure chronic ulcer of right ankle with necrosis of muscle PLAN: Patient was examined and evaluated. All findings were discussed with the patient. All questions were answered to the patient satisfaction. Excisional debridement down to including subcutaneous tissue with a number 3 mm dermal curette to the left lateral ankle done without incident. Predebridement measurement was 1.0 x 0.2 x 0.1 cm. Postdebridement measurement is 1.2 x 0.4 x 0.1 cm. Excisional debridement down to and including subcutaneous tissue, fascia and muscle of the right full-thickness wound to the right lateral ankle done with a number 3 mm dermal curette without incident. Predebridement measurement was 1.0 x 0.7 x 0.2 cm. Postdebridement measurement is 1.1 x 0.9 x 0.3 cm. Epicord graft 2.0 x 3.0 cm was applied to the full-thickness wound to the lateral right ankle. Wound base was granular with no concern for infection. 100% use of the graft. Third application. There is no evidence of exposed bone or tendon. There is no concern for infection. The area was dressed with bolster dressing dry sterile dressing and Tubigrip to the right lower extremity. The left lower extremity full-thickness wound was dressed with silver alginate dry sterile dressing and compression wrap. They will change daily. Patient will continue strict blood sugar control and offload. Patient will follow-up with Dr. Ahmadi in 1 week (2) Non-healing ulcer of left ankle with fat layer exposed: CODE(S): L97.322 - Non-pressure chronic ulcer of left ankle with fat layer exposed
--- NOTE | 2025-04-01 12:11 | WC ---
PHOTO-LEFT ANKLE 03/31/25
[2025-04-07 09:30] VITALS: BP 98/62; PULSE 93; RESP 17; TEMP 36.1
--- NOTE | 2025-04-07 10:53 | PCM.WC.PN ---
History of Present Illness Date of Service: 04/07/25 Chief Complaint: Bilateral Foot Ulcers. History of Wound: Mr. Howe is a 69 yo referred to the wound center by his vascular surgery PA due to non healing bilateral ankle/foot ulcer. He is a poor historian due to memory impairment/dementia. Currently resides in a nursing facility. Per vascular surgery documentation, right lower extremity ulcer is chronic and left is more recent but has been present for months. Had imaging done including a CTA with no significant focal stenosis and three-vessel runoff. Also recently had repeat lower extremity arterial studies with no significant concerns noted. No indication for vascular intervention per documentation. History of diabetes mellitus type 2, no recent labs Progress of Wound: Improving full-thickness wounds to the lateral ankles bilateral. Subjective Subjective Patient is a 69-year-old diabetic male presenting to the clinic today follow-up evaluation of full-thickness wounds to the lateral bilateral ankles. Patient has been compliant with leaving the dressing clean dry and intact. He is offloading as discussed. His blood sugars is well-controlled at the facility. He denies any pain to the bilateral lower extremity. He does admit to some elevation. He denies any trauma. Denies constitutional symptoms. No other pedal complaints at this time. Objective Data Objective Data Vital Signs: Vital Signs Temp Pulse Resp BP O2 Del Method 96.9 F L 93 17 98/62 Room Air 04/07/25 09:30 04/07/25 09:30 04/07/25 09:30 04/07/25 09:30 04/07/25 09:30 Oxygen Delivery Method Room Air Lab / Micro Data Micro: Microbiology 02/24/25 11:30 Wound - Ankle Gram Stain - Final 02/24/25 11:30 Wound - Ankle Wound Culture - Final No growth aerobically. 02/24/25 11:30 Wound - Ankle Anaerobic Culture - Final No anaerobic bacteria isolated. Charges/Coding Procedures Integumentary [id number]: [id number] [place] subq tissue 20 sq cm/< Physical Exam Narrative Vascular: DP and PT pulses are palpable. CFT is brisk. Skin temp gradient is warm to warm from proximal ankles to distal digits to the bilateral lower extremity. No erythema. Neurological: Light touch is intact. Patient does respond to painful stimuli. Dermatological: Full-thickness wound to the lateral right ankle measuring 0.5 x 0.6 x 0.1 cm. Wound base is granular with negative probe to bone. Evidence of full-thickness wound to the lateral left ankle measuring 1.0 x 0.9 x 0.3 cm. Wound base is granular with no sign of infection. Excisional debridement down to including subcutaneous tissue with a number 3 mm dermal curette to the left lateral ankle done without incident. Predebridement measurement was sanguinous crust. Postdebridement measurement is 0.5 x 0.6 x 0.1 cm. Excisional debridement down to and including subcutaneous tissue, fascia and muscle of the right full-thickness wound to the right lateral ankle done with a number 3 mm dermal curette without incident. Predebridement measurement was 0.9 x 0.8 x 0.2 cm. Postdebridement measurement is 1.0 x 0.9 x 0.3 cm. EpiFix graft 18 mm depth was applied to the full-thickness wound to the lateral right ankle. Wound base was granular with no concern for infection. 100% use of the graft. Fourth application. There is no evidence of exposed bone or tendon. There is no concern for infection. The area was dressed with bolster dressing dry sterile dressing and Tubigrip to the right lower extremity. Musculoskeletal: No pain to palpation to the full-thickness wound to the bilateral lower extremity. No pain with calf pressure. Debridement Note Debridement Note Debridement Free Text: Excisional debridement down to including subcutaneous tissue with a number 3 mm dermal curette to the left lateral ankle done without incident. Predebridement measurement was sanguinous crust. Postdebridement measurement is 0.5 x 0.6 x 0.1 cm. Excisional debridement down to and including subcutaneous tissue, fascia and muscle of the right full-thickness wound to the right lateral ankle done with a number 3 mm dermal curette without incident. Predebridement measurement was 0.9 x 0.8 x 0.2 cm. Postdebridement measurement is 1.0 x 0.9 x 0.3 cm. EpiFix graft 18 mm depth was applied to the full-thickness wound to the lateral right ankle. Wound base was granular with no concern for infection. 100% use of the graft. Fourth application. There is no evidence of exposed bone or tendon. There is no concern for infection. The area was dressed with bolster dressing dry sterile dressing and Tubigrip to the right lower extremity. Post-Debridement Measurements and Additional Note: Post-Debridement Measurements/Treatment - Nurse 1 - General Ulcer Assessment Start: 03/31/25 09:45 Freq: Status: Active Protocol: OFE Activity Type Activity Date Activity User E-sign Co-sign Detail Recorded Client Recorded Date Recorded By Document 03/31/25 09:45 CP [id number] 03/31/25 09:50 CP Document 04/07/25 09:30 MT [id number] 04/07/25 09:46 MT 03/31/25 04/07/25 09:45 09:30 WC - Today's Visit Information Type of service Follow-up Visit Follow-up Visit (Physician/FIRMWARE SOFTWARE VERIFICATION ENGINEER (Physician/FIRMWARE SOFTWARE VERIFICATION ENGINEER ) ) Arrival Mode Wheelchair Wheelchair Transfer Assistance Manual Transfer Assist (Other) 2 Patient Identification Verified (Name & Yes Yes ) Patient Requires Transmission-Based No No Precautions Safety Precautions Fall Prevention Fall Prevention Vital Signs Temperature (97.8 F-99.1 F) 98 F 96.9 F L Temperature Source Temporal Temporal Pulse Rate (60-100) 91 93 Pulse Location Monitor Monitor Respiratory Rate (12-18) 16 17 Respiratory rate source Observation Observation Oxygen Delivery Method Room Air Blood Pressure (90/60-120/80) 87/52 L 98/62 Blood Pressure Mean (mm Hg) 63 74 Source Monitor Monitor Position Sitting Sitting Blood Pressure Location Right Forearm Left Arm History Since Last Visit- (Skip if this is Patient's initial visit) Have you changed medications since your No No last visit? Any new allergies or adverse reactions No No Had a fall/change in ADL's that may No No increase risk of falls Signs or symptoms of abuse and/or No No neglect since last visit Have you been in the hospital since your No last visit? Has dressing in place as prescribed Yes Yes Has compression in place as prescribed N/A Yes Has offloadiing in place as prescribed N/A N/A Experienced any changes in pain level or No No management Left Footwear Regular Shoe Right Footwear Regular Shoe Pain Scale: 0-10 Numeric Is Patient Pain Free? Yes Yes JOIE - Nurse 1 - General Ulcer Measurement Start: 03/31/25 09:45 Freq: Status: Active Protocol: Activity Type Activity Date Activity User E-sign Co-sign Detail Recorded Client Recorded Date Recorded By Document 11/05/25 09:45 CP [id number] 03/31/25 09:50 CP Document 04/07/25 09:30 MT [id number] 04/07/25 09:46 MT 03/31/25 04/07/25 09:45 09:30 Wound Center Nurse 1 #2 Left lateral Ankle -Current Size (cm) - Length 0.3 1 -Current Size (cm) - Width 0.5 1 -Current Size (cm) - Depth 0.1 0.1 -Total Square Cm 0.15 1 -Date of Last Picture (Recall this 03/31/25 04/07/25 field) -Photo Taken Yes -Epithelialization None Present -Tunneling No No -Undermining/Tunneling No No -Circular Undermining No -Change in Wound Grade/Stage No -Exudate Amt Small -Exudate Type Serosanguineous -Wound Margin Flat & Intact -Granulation Amt None Present (0 Medium (34-66%) %) -Granulation Quality Challenge-[place],Red -Slough/Fibrin Yes -Necrosis Amt Large (67-100%) None Present (0 %) -Necrotic Tissue Type Adherent Slough -Structure Exposed N/A None/Limited to Skin Breakdown -Texture ([place]-wound Skin Appearance) No Abnormality Assessed -Moisture ([place]-wound Skin Appearance) No Abnormality Assessed -Color ([place]-wound Skin Appearance) No Abnormality Assessed -Temperature ([place]-wound Skin No Abnormality No Abnormality Appearance) (Pt Warm) (Pt Warm) -Tenderness on Palpation ([place]-wound No Skin Appearance) -Ulcer Cleansing Rinsed/ Soap and Water Irrigated with Saline -Foul Odor after Cleansing No No -Anesthetic Used 5% Lidocaine 5% Lidocaine Gel Gel #1 Right lateral Ankle -Combined with other wound No -Current Size (cm) - Length 0.3 0.1 -Current Size (cm) - Width 0.5 0.1 -Current Size (cm) - Depth 0.3 0.1 -Total Square Cm 0.15 0.01 -Date of Last Picture (Recall this 03/31/25 04/07/25 field) -Photo Taken Yes -Epithelialization None Present -Tunneling No No -Undermining/Tunneling No No -Circular Undermining No -Exudate Amt Small None Present -Exudate Type Serosanguineous -Wound Margin Flat & Intact Distinct, Outline Attached -Granulation Amt None Present (0 Medium (34-66%) %) -Granulation Quality Challenge-[place],Red -Slough/Fibrin Yes No -Necrosis Amt Large (67-100%) -Necrotic Tissue Type Adherent Slough -Structure Exposed N/A None/Limited to Skin Breakdown -Texture ([place]-wound Skin Appearance) No Abnormality Assessed -Moisture ([place]-wound Skin Appearance) No Abnormality Assessed -Color ([place]-wound Skin Appearance) No Abnormality Assessed -Temperature ([place]-wound Skin No Abnormality No Abnormality Appearance) (Pt Warm) (Pt Warm) -Tenderness on Palpation ([place]-wound No Skin Appearance) -Ulcer Cleansing Rinsed/ Soap and Water Irrigated with Saline -Foul Odor after Cleansing No No -Anesthetic Used 5% Lidocaine 5% Lidocaine Gel Gel WC - Nurse 2 - General Ulcer CM Notes Start: 03/31/25 09:45 Freq: Status: Active Protocol: Activity Type Activity Date Activity User E-sign Co-sign Detail Recorded Client Recorded Date Recorded By Document 03/31/25 10:00 [id number] 03/31/25 10:04 Document 04/07/25 09:58 [id number] 04/07/25 10:04 03/31/25 04/07/25 10:00 09:58 Wound Center Nurse 2 #2 Left lateral Ankle -Time 10:00 09:58 -Correct Patient Yes Yes -Correct Side, Site, Position Yes Yes -Correct Procedure Yes Yes -Procedure Performed Yes Yes -Type of Procedure Debridement Debridement -Clinical Debridement Subcutaneous Subcutaneous -Tissue Removed Subcutaneous Subcutaneous -Post Debridement (cm) - Length 1.2 0.5 -Post Debridement (cm) - Width 0.4 0.6 -Post Debridement (cm) - Depth 0.1 0.1 -Total Square (Post) (cm) 0.48 0.30 -Area of Debridement (cm) - Length 1.2 0.5 -Area of Debridement (cm) - Width 0.4 0.6 -Total Square (Area) (cm) 0.48 0.30 -Tunneling No No -Undermining/Tunneling No No -Circular Undermining No No -Wound/Ulcer Outcome Not Healed Not Healed -Ulcer Cleansing Rinsed/ Rinsed/ Irrigated with Irrigated with Saline Saline -Foul Odor after Cleansing No No -Bioengineered Tissue No No -Bleeding Controlled with Pressure Pressure -Treatment Response Procedure Procedure Tolerated Well Tolerated Well -Offloading No No -Debridement - Subq, 1st 20sq cm Yes Yes #1 Right lateral Ankle -Time 10:00 09:58 -Correct Patient Yes Yes -Correct Side, Site, Position Yes Yes -Correct Procedure Yes Yes -Procedure Performed Yes Yes -Type of Procedure Debridement Debridement -Clinical Debridement Muscle / Fascia Subcutaneous -Tissue Removed Muscle Subcutaneous -Post Debridement (cm) - Length 1.1 1.0 -Post Debridement (cm) - Width 0.9 0.9 -Post Debridement (cm) - Depth 0.3 0.3 -Total Square (Post) (cm) 0.99 0.90 -Area of Debridement (cm) - Length 1.1 1 -Area of Debridement (cm) - Width 0.9 0.9 -Total Square (Area) (cm) 0.99 0.9 -Tunneling No No -Undermining/Tunneling No No -Circular Undermining No No -Wound/Ulcer Outcome Not Healed Not Healed -Ulcer Cleansing Rinsed/ Rinsed/ Irrigated with Irrigated with Saline Saline -Foul Odor after Cleansing No No -Bioengineered Tissue Yes Yes -Type of Bioengineered Tissue Epicord Epifix 18mm Disc -Expiration Date 08/25/29 11/24/29 -Product Lot Number [id number] -Percent Used 100 100 -Lot number of Saline Used [id number] -Bleeding Controlled with Pressure Pressure -Treatment Response Procedure Procedure Tolerated Well Tolerated Well -Offloading No No -Debridement - Subq, 1st 20sq cm No -Debridement - Muscle / Fascia, 1st No 20sq cm -Apply Skin Sub - 1st 25 sq cm - Legs 1 1 -Epicord Application 1-4 (per sq cm) 6 -Epifix 18mm Disc Application 1-4 3 Pain Scale: 0-10 Numeric Is Patient Pain Free? Yes Yes WC - Nurse 3 - General Ulcer D/C NN Start: 03/31/25 09:45 Freq: Status: Active Protocol: Activity Type Activity Date Activity User E-sign Co-sign Detail Recorded Client Recorded Date Recorded By Document 03/31/25 10:15 TS [id number] 03/31/25 10:27 TS Document 04/07/25 10:13 TS [id number] 04/07/25 10:24 TS 03/31/25 04/07/25 10:15 10:13 Wound Care Center Nurse 3 #2 Left lateral Ankle -Primary Dressing Applied C Hydrogel -Other Dressing abd abd and kerlix -Primary Dressing Covered/Secured with Dry Gauze & Secured with Roll Gauze, Tape Secured with Tape -Hydrogel 0 #1 Right lateral Ankle -Primary Dressing Applied C Hydrogel -Other Dressing abd abd and kerlix -Primary Dressing Covered/Secured with Dry Gauze & Secured with Roll Gauze, Tape Secured with Tape -Hydrogel 0 BLE -Lotion applied to leg before Yes compression wrap -Tubular Bandage Single Layer Single Layer -Size of Tubigrip Used Size D Size D -Size D ($) 2 2 Pain Scale: 0-10 Numeric Is Patient Pain Free? Yes Yes WC - Visit Discharge Discharge Condition Stable Stable Ambulatory Status Wheelchair Wheelchair Transportation Ambulance Ambulance Medication Reconcilliation completed & No No provided to patient/care provider Clinical Summary of Care Provided Yes Yes Additional Wound Wound debrided: Left ankle (lateral) Type of Debridement: Excisional debridement Depth: Down to and including healthy tissue and in the subcutaneous layer Percentage of wound debrided: 100 Instrument Used: 5mm curette Tissue Removed: Devitalized tissue Severity: Fat Layer Exposed Amount of bleeding with debridement: Mild Bleeding Controlled with: Pressure Patient tolerated procedure: Patient tolerated procedure well Assessment/Plan Assessment/Plan (1) Non-pressure chronic ulcer of right ankle with necrosis of muscle: CODE(S): L97.313 - Non-pressure chronic ulcer of right ankle with necrosis of muscle PLAN: Patient was examined and evaluated. All findings were discussed with the patient. All questions were answered to the patient satisfaction. Excisional debridement down to including subcutaneous tissue with a number 3 mm dermal curette to the left lateral ankle done without incident. Predebridement measurement was sanguinous crust. Postdebridement measurement is 0.5 x 0.6 x 0.1 cm. Excisional debridement down to and including subcutaneous tissue, fascia and muscle of the right full-thickness wound to the right lateral ankle done with a number 3 mm dermal curette without incident. Predebridement measurement was 0.9 x 0.8 x 0.2 cm. Postdebridement measurement is 1.0 x 0.9 x 0.3 cm. EpiFix graft 18 mm depth was applied to the full-thickness wound to the lateral right ankle. Wound base was granular with no concern for infection. 100% use of the graft. Fourth application. There is no evidence of exposed bone or tendon. There is no concern for infection. The area was dressed with bolster dressing dry sterile dressing and Tubigrip to the right lower extremity. Patient will follow-up with Dr. Ahmadi in 1 week (2) Non-healing ulcer of left ankle with fat layer exposed: CODE(S): L97.322 - Non-pressure chronic ulcer of left ankle with fat layer exposed
[2025-04-14 09:46] VITALS: BP 104/57; PULSE 87; RESP 17; TEMP 36.5
--- NOTE | 2025-04-14 10:50 | PCM.WC.PN ---
History of Present Illness Date of Service: 04/14/25 Chief Complaint: Bilateral Foot Ulcers. History of Wound: Mr. Howe is a 69 yo referred to the wound center by his vascular surgery PA due to non healing bilateral ankle/foot ulcer. He is a poor historian due to memory impairment/dementia. Currently resides in a nursing facility. Per vascular surgery documentation, right lower extremity ulcer is chronic and left is more recent but has been present for months. Had imaging done including a CTA with no significant focal stenosis and three-vessel runoff. Also recently had repeat lower extremity arterial studies with no significant concerns noted. No indication for vascular intervention per documentation. History of diabetes mellitus type 2, no recent labs Progress of Wound: Improving full-thickness wounds to the lateral ankles bilateral. Subjective Subjective Patient is a 69-year-old male presenting to clinic today for follow-up evaluation of full-thickness wound to the bilateral lateral ankles. Patient has been compliant with outer dressing changes and left the graft clean dry and intact. He is offloading as discussed. He denies any pain or trauma. Denies constitutional symptoms. No other pedal complaints at this time. Objective Data Objective Data Vital Signs: Vital Signs Temp Pulse Resp BP O2 Del Method 97.7 F L 87 17 104/57 L Room Air 04/14/25 09:46 04/14/25 09:46 04/14/25 09:46 04/14/25 09:46 04/14/25 09:46 Oxygen Delivery Method Room Air Lab / Micro Data Micro: Microbiology 02/24/25 11:30 Wound - Ankle Gram Stain - Final 02/24/25 11:30 Wound - Ankle Wound Culture - Final No growth aerobically. 02/24/25 11:30 Wound - Ankle Anaerobic Culture - Final No anaerobic bacteria isolated. Charges/Coding Procedures Integumentary [id number]: [id number] Marilia subq tissue 20 sq cm/< Physical Exam Narrative Vascular: DP and PT pulses are palpable. CFT is brisk. Skin temp gradient is warm to warm from proximal ankles to distal digits to the bilateral lower extremity. No erythema. Neurological: Light touch is intact. Patient does respond to painful stimuli. Dermatological: Full-thickness wound to the lateral right ankle measuring 0.7 x 0.6 x 0.2 cm. Wound base is granular with negative probe to bone. Full-thickness wound to the lateral left ankle is now healed. Excisional debridement down to and including subcutaneous tissue of the right full-thickness wound to the right lateral ankle done with a number 3 mm dermal curette without incident. Predebridement measurement was sanguinous crust postdebridement measurement is 0.7 x 0.6 x 0.2 cm. EpiFix graft 18 mm depth was applied to the full-thickness wound to the lateral right ankle. Wound base was granular with no concern for infection. 100% use of the graft. Fifth application. There is no evidence of exposed bone or tendon. There is no concern for infection. The area was dressed with bolster dressing dry sterile dressing and Tubigrip to the right lower extremity. Musculoskeletal: No pain to palpation to the full-thickness wound to the bilateral lower extremity. No pain with calf pressure. Debridement Note Debridement Note Debridement Free Text: Excisional debridement down to including subcutaneous tissue with a number 3 mm dermal curette to the left lateral ankle done without incident. Predebridement measurement was sanguinous crust. Postdebridement measurement is 0.5 x 0.6 x 0.1 cm. Excisional debridement down to and including subcutaneous tissue, fascia and muscle of the right full-thickness wound to the right lateral ankle done with a number 3 mm dermal curette without incident. Predebridement measurement was 0.9 x 0.8 x 0.2 cm. Postdebridement measurement is 1.0 x 0.9 x 0.3 cm. EpiFix graft 18 mm depth was applied to the full-thickness wound to the lateral right ankle. Wound base was granular with no concern for infection. 100% use of the graft. Fourth application. There is no evidence of exposed bone or tendon. There is no concern for infection. The area was dressed with bolster dressing dry sterile dressing and Tubigrip to the right lower extremity. Post-Debridement Measurements and Additional Note: Post-Debridement Measurements/Treatment WC - Nurse 1 - General Ulcer Assessment Start: 03/31/25 09:45 Freq: Status: Active Protocol: LOWEXT Activity Type Activity Date Activity User E-sign Co-sign Detail Recorded Client Recorded Date Recorded By Document 03/31/25 09:45 CP [id number] 03/31/25 09:50 CP Document 04/07/25 09:30 MT [id number] 04/07/25 09:46 MT Document 04/14/25 09:46 TS [id number] 04/14/25 09:56 TS 03/31/25 04/07/25 04/14/25 09:45 09:30 09:46 - Today's Visit Information Type of service Follow-up Visit Follow-up Visit Follow-up Visit (Physician/INTERNAL COMMUNICATIONS MANAGER (Physician/INTERNAL COMMUNICATIONS MANAGER (Physician/INTERNAL COMMUNICATIONS MANAGER ) ) ) Arrival Mode Wheelchair Wheelchair Wheelchair Transfer Assistance Manual Transfer Assist (Other) 2 Patient Identification Verified (Name & Yes Yes Yes ) Patient Requires Transmission-Based No No No Precautions Safety Precautions Fall Prevention Fall Prevention Fall Prevention Vital Signs Temperature (97.8 F-99.1 F) 98 F 96.9 F L 97.7 F L Temperature Source Temporal Temporal Temporal Pulse Rate (60-100) 91 93 87 Pulse Location Monitor Monitor Monitor Respiratory Rate (12-18) 16 17 17 Respiratory rate source Observation Observation Observation Oxygen Delivery Method Room Air Room Air Blood Pressure (90/60-120/80) 87/52 L 98/62 104/57 L Blood Pressure Mean (mm Hg) 63 74 72 Source Monitor Monitor Monitor Position Sitting Sitting Sitting Blood Pressure Location Right Forearm Left Arm Left Arm History Since Last Visit- (Skip if this is Patient's initial visit) Have you changed medications since your No No No last visit? Any new allergies or adverse reactions No No No Had a fall/change in ADL's that may No No No increase risk of falls Signs or symptoms of abuse and/or No No No neglect since last visit Have you been in the hospital since your No No last visit? Has dressing in place as prescribed Yes Yes Yes Has compression in place as prescribed N/A Yes Yes Has offloadiing in place as prescribed N/A N/A N/A Experienced any changes in pain level or No No No management Left Footwear Regular Shoe Regular Shoe Right Footwear Regular Shoe Regular Shoe Pain Scale: 0-10 Numeric Is Patient Pain Free? Yes Yes Yes - Nurse 1 - General Ulcer Measurement Start: 03/31/25 09:45 Freq: Status: Active Protocol: Activity Type Activity Date Activity User E-sign Co-sign Detail Recorded Client Recorded Date Recorded By Document 03/31/25 09:45 CP [id number] 03/31/25 09:50 CP Document 04/07/25 09:30 MT [id number] 04/07/25 09:46 MT Document 04/14/25 09:46 TS [id number] 04/14/25 09:56 TS 03/31/25 04/07/25 04/14/25 09:45 09:30 09:46 Wound Center Nurse 1 #2 Left lateral Ankle -Combined with other wound No -Current Size (cm) - Length 0.3 1 1.2 -Current Size (cm) - Width 0.5 1 1.1 -Current Size (cm) - Depth 0.1 0.1 0.1 -Total Square Cm 0.15 1 1.32 -Date of Last Picture (Recall this 03/31/25 04/07/25 04/14/25 field) -Photo Taken Yes Yes -Epithelialization None Present -Tunneling No No No -Undermining/Tunneling No No No -Circular Undermining No No -Change in Wound Grade/Stage No -Exudate Amt Small Medium -Exudate Type Serosanguineous Serosanguineous -Wound Margin Flat & Intact Distinct, Outline Attached -Granulation Amt None Present (0 Medium (34-66%) Medium (34-66%) %) -Granulation Quality Fishhook,Red [place],Red -Slough/Fibrin Yes -Necrosis Amt Large (67-100%) None Present (0 %) -Necrotic Tissue Type Adherent Slough Adherent Slough -Structure Exposed N/A None/Limited to Skin Breakdown -Texture ([place]-wound Skin Appearance) No Abnormality Assessed Assessed -Moisture ([place]-wound Skin Appearance) No Abnormality Assessed -Color ([place]-wound Skin Appearance) No Abnormality Assessed Assessed -Temperature ([place]-wound Skin No Abnormality No Abnormality No Abnormality Appearance) (Pt Warm) (Pt Warm) (Pt Warm) -Tenderness on Palpation ([place]-wound No Skin Appearance) -Ulcer Cleansing Rinsed/ Soap and Water Soap and Water Irrigated with Saline -Foul Odor after Cleansing No No No -Anesthetic Used 5% Lidocaine 5% Lidocaine 4% Lidocaine Gel Gel Solution #1 Right lateral Ankle -Combined with other wound No No -Current Size (cm) - Length 0.3 0.1 1 -Current Size (cm) - Width 0.5 0.1 0.8 -Current Size (cm) - Depth 0.3 0.1 0.1 -Total Square Cm 0.15 0.01 0.8 -Date of Last Picture (Recall this 03/31/25 04/07/25 04/14/25 field) -Photo Taken Yes Yes -Epithelialization None Present -Tunneling No No No -Undermining/Tunneling No No No -Circular Undermining No No -Exudate Amt Small None Present Medium -Exudate Type Serosanguineous Serosanguineous -Wound Margin Flat & Intact Distinct, Distinct, Outline Outline Attached Attached -Granulation Amt None Present (0 Medium (34-66%) Medium (34-66%) %) -Granulation Quality [place],Red [place],Red -Slough/Fibrin Yes No -Necrosis Amt Large (67-100%) -Necrotic Tissue Type Adherent Slough Adherent Slough -Structure Exposed N/A None/Limited to None/Limited to Skin Breakdown Skin Breakdown -Texture ([place]-wound Skin Appearance) No Abnormality Assessed Assessed -Moisture ([place]-wound Skin Appearance) No Abnormality Assessed -Color ([place]-wound Skin Appearance) No Abnormality Assessed Assessed -Temperature ([place]-wound Skin No Abnormality No Abnormality No Abnormality Appearance) (Pt Warm) (Pt Warm) (Pt Warm) -Tenderness on Palpation ([place]-wound No Skin Appearance) -Ulcer Cleansing Rinsed/ Soap and Water Soap and Water Irrigated with Saline -Foul Odor after Cleansing No No No -Anesthetic Used 5% Lidocaine 5% Lidocaine 5% Lidocaine Gel Gel Gel Point of measurement (cm from the medial 33.8 instep) Point of Measurement (cm from the medial 22 instep) Point of measurement (cm from the medial 34 instep) Point of Measurement (cm from the medial 23.5 instep) WC - Nurse 2 - General Ulcer CM Notes Start: 03/31/25 09:45 Freq: Status: Active Protocol: Activity Type Activity Date Activity User E-sign Co-sign Detail Recorded Client Recorded Date Recorded By Document 03/31/25 10:00 DARWIN [id number] 03/31/25 10:04 JF Document 04/07/25 09:58 JF [id number] 04/07/25 10:04 JF Document 04/14/25 10:00 DARWIN [id number] 04/14/25 10:04 03/31/25 04/07/25 04/14/25 10:00 09:58 10:00 Wound Center Nurse 2 #2 Left lateral Ankle -Time 10:00 09:58 10:01 -Correct Patient Yes Yes Yes -Correct Side, Site, Position Yes Yes No -Correct Procedure Yes Yes No -Procedure Performed Yes Yes No -Type of Procedure Debridement Debridement -Clinical Debridement Subcutaneous Subcutaneous -Tissue Removed Subcutaneous Subcutaneous -Post Debridement (cm) - Length 1.2 0.5 0 -Post Debridement (cm) - Width 0.4 0.6 0 -Post Debridement (cm) - Depth 0.1 0.1 0 -Total Square (Post) (cm) 0.48 0.30 0 -Area of Debridement (cm) - Length 1.2 0.5 0 -Area of Debridement (cm) - Width 0.4 0.6 0 -Total Square (Area) (cm) 0.48 0.30 0 -Tunneling No No -Undermining/Tunneling No No -Circular Undermining No No -Wound/Ulcer Outcome Not Healed Not Healed Healed- Epithelialized -Ulcer Cleansing Rinsed/ Rinsed/ Irrigated with Irrigated with Saline Saline -Foul Odor after Cleansing No No -Bioengineered Tissue No No -Bleeding Controlled with Pressure Pressure -Treatment Response Procedure Procedure Tolerated Well Tolerated Well -Offloading No No -Debridement - Subq, 1st 20sq cm Yes Yes #1 Right lateral Ankle -Time 10:00 09:58 10:02 -Correct Patient Yes Yes Yes -Correct Side, Site, Position Yes Yes Yes -Correct Procedure Yes Yes Yes -Procedure Performed Yes Yes Yes -Type of Procedure Debridement Debridement Debridement -Clinical Debridement Muscle / Fascia Subcutaneous Subcutaneous -Tissue Removed Muscle Subcutaneous Subcutaneous -Post Debridement (cm) - Length 1.1 1.0 0.7 -Post Debridement (cm) - Width 0.9 0.9 0.6 -Post Debridement (cm) - Depth 0.3 0.3 0.2 -Total Square (Post) (cm) 0.99 0.90 0.42 -Area of Debridement (cm) - Length 1.1 1 0.7 -Area of Debridement (cm) - Width 0.9 0.9 0.6 -Total Square (Area) (cm) 0.99 0.9 0.42 -Tunneling No No No -Undermining/Tunneling No No No -Circular Undermining No No No -Wound/Ulcer Outcome Not Healed Not Healed Not Healed -Ulcer Cleansing Rinsed/ Rinsed/ Rinsed/ Irrigated with Irrigated with Irrigated with Saline Saline Saline -Foul Odor after Cleansing No No No -Bioengineered Tissue Yes Yes Yes -Type of Bioengineered Tissue Epicord Epifix 18mm Epifix 18mm Disc Disc -Expiration Date 08/25/29 11/24/29 11/24/29 -Product Lot Number [id number] -Percent Used 100 100 100 -Lot number of Saline Used [id number] -Bleeding Controlled with Pressure Pressure Pressure -Treatment Response Procedure Procedure Procedure Tolerated Well Tolerated Well Tolerated Well -Offloading No No No -Debridement - Subq, 1st 20sq cm No No -Debridement - Muscle / Fascia, 1st No 20sq cm -Apply Skin Sub - 1st 25 sq cm - Legs 1 1 1 -Epicord Application 1-4 (per sq cm) 6 -Epifix 18mm Disc Application 1-4 3 3 Pain Scale: 0-10 Numeric Is Patient Pain Free? Yes Yes Yes WC - Nurse 3 - General Ulcer D/C NN Start: 03/31/25 09:45 Freq: Status: Active Protocol: Activity Type Activity Date Activity User E-sign Co-sign Detail Recorded Client Recorded Date Recorded By Document 03/31/25 10:15 TS [id number] 03/31/25 10:27 TS Document 04/07/25 10:13 TS [id number] 04/07/25 10:24 TS Document 04/14/25 10:21 TS [id number] 04/14/25 10:23 TS 03/31/25 04/07/25 04/14/25 10:15 10:13 10:21 Wound Care Center Nurse 3 #2 Left lateral Ankle -Primary Dressing Applied C Hydrogel -Other Dressing abd abd and kerlix -Primary Dressing Covered/Secured with Dry Gauze & Secured with Roll Gauze, Tape Secured with Tape -Hydrogel 0 #1 Right lateral Ankle -Primary Dressing Applied C Hydrogel -Other Dressing abd abd and kerlix -Primary Dressing Covered/Secured with Dry Gauze & Secured with Dry Gauze, Roll Gauze, Tape Secured with Secured with Tape Tape -Hydrogel 0 BLE -Lotion applied to leg before Yes Yes compression wrap -Tubular Bandage Single Layer Single Layer Single Layer -Size of Tubigrip Used Size D Size D Size D -Size D ($) 2 2 2 Pain Scale: 0-10 Numeric Is Patient Pain Free? Yes Yes Yes WC - Visit Discharge Discharge Condition Stable Stable Stable Ambulatory Status Wheelchair Wheelchair Wheelchair Transportation Ambulance Ambulance Ambulance Medication Reconcilliation completed & No No No provided to patient/care provider Clinical Summary of Care Provided Yes Yes Yes Additional Wound Wound debrided: Left ankle (lateral) Type of Debridement: Excisional debridement Depth: Down to and including healthy tissue and in the subcutaneous layer Percentage of wound debrided: 100 Instrument Used: 5mm curette Tissue Removed: Devitalized tissue Severity: Fat Layer Exposed Amount of bleeding with debridement: Mild Bleeding Controlled with: Pressure Patient tolerated procedure: Patient tolerated procedure well Assessment/Plan Assessment/Plan (1) Non-pressure chronic ulcer of right ankle with necrosis of muscle: CODE(S): L97.313 - Non-pressure chronic ulcer of right ankle with necrosis of muscle PLAN: Patient was examined and evaluated. All findings were discussed with the patient. All questions were answered to the patient satisfaction. Excisional debridement down to and including subcutaneous tissue of the right full-thickness wound to the right lateral ankle done with a number 3 mm dermal curette without incident. Predebridement measurement was sanguinous crust postdebridement measurement is 0.7 x 0.6 x 0.2 cm. EpiFix graft 18 mm depth was applied to the full-thickness wound to the lateral right ankle. Wound base was granular with no concern for infection. 100% use of the graft. Fifth application. There is no evidence of exposed bone or tendon. There is no concern for infection. The area was dressed with bolster dressing dry sterile dressing and Tubigrip to the right lower extremity. Padding protection was applied to the lateral left ankle followed by a Tubigrip. Patient will follow-up with Dr. Hand in [address] Ahmadi in 2 weeks.
--- NOTE | 2025-04-15 09:02 | WC ---
PHOTO-RIGHT ANKLE 04/14/25
--- NOTE | 2025-04-15 09:04 | WC ---
PHOTO-LEFT ANKLE 04/14/25
[2025-04-19 09:35] VITALS: BP 105/76; PULSE 96; RESP 17
--- NOTE | 2025-04-19 12:15 | PCM.WC.PN ---
History of Present Illness Date of Service: 04/19/25 Chief Complaint: Bilateral Foot Ulcers. History of Wound: Mr. Howe is a 69 yo referred to the wound center by his vascular surgery PA due to non healing bilateral ankle/foot ulcer. He is a poor historian due to memory impairment/dementia. Currently resides in a nursing facility. Per vascular surgery documentation, right lower extremity ulcer is chronic and left is more recent but has been present for months. Had imaging done including a CTA with no significant focal stenosis and three-vessel runoff. Also recently had repeat lower extremity arterial studies with no significant concerns noted. No indication for vascular intervention per documentation. History of diabetes mellitus type 2, no recent labs Progress of Wound: Patient being seen this week as a courtesy visit as Dr. Ahmadi is out of the office. Left ankle wound is healed. Right ankle wound persists and is being treated with EpiFix. He presents today for application of the EpiFix Objective Data Objective Data Vital Signs: Vital Signs Temp Pulse Resp BP O2 Del Method 97.7 F L 96 17 105/76 Room Air 04/14/25 09:46 04/19/25 09:35 04/19/25 09:35 04/19/25 09:35 04/19/25 09:35 Oxygen Delivery Method Room Air Charges/Coding Procedures Integumentary 150xxx-152xx: [id number] Skin sub graft trnk/arm/leg Physical Exam Narrative Right lateral ankle wound was debrided today with a 5 mm dermal curette without incident. Predebridement measurement was sanguinous crust postdebridement measurement is 0.7 x 0.8 and is 0.2 cm deep. EpiFix graft 18 mm depth was applied to the full-thickness wound to the lateral right ankle. There was no signs of infection. No bone or tendon was exposed and the wound veil and Steri-Strips were applied as well as dry sterile dressing and Tubigrip to the right lower extremity. Debridement Note Debridement Note Post-Debridement Measurements and Additional Note: Post-Debridement Measurements/Treatment WC - Nurse 1 - General Ulcer Assessment Start: 03/31/25 09:45 Freq: Status: Active Protocol: OFE Activity Type Activity Date Activity User E-sign Co-sign Detail Recorded Client Recorded Date Recorded By Document 03/31/25 09:45 CP [id number] 03/31/25 09:50 CP Document 04/07/25 09:30 MT [id number] 04/07/25 09:46 MT Document 04/14/25 09:46 TS [id number] 04/14/25 09:56 TS Document 04/19/25 09:35 MT [id number] 04/19/25 09:46 MT 03/31/25 04/07/25 04/14/25 09:45 09:30 09:46 WC - Today's Visit Information Type of service Follow-up Visit Follow-up Visit Follow-up Visit (Physician/STOCK SORTER (Physician/STOCK SORTER (Physician/STOCK SORTER ) ) ) Arrival Mode Wheelchair Wheelchair Wheelchair Transfer Assistance Manual Transfer Assist (Other) 2 Patient Identification Verified (Name & Yes Yes Yes ) Patient Requires Transmission-Based No No No Precautions Safety Precautions Fall Prevention Fall Prevention Fall Prevention Vital Signs Temperature (97.8 F-99.1 F) 98 F 96.9 F L 97.7 F L Temperature Source Temporal Temporal Temporal Pulse Rate (60-100) 91 93 87 Pulse Location Monitor Monitor Monitor Respiratory Rate (12-18) 16 17 17 Respiratory rate source Observation Observation Observation Oxygen Delivery Method Room Air Room Air Blood Pressure (90/60-120/80) 87/52 L 98/62 104/57 L Blood Pressure Mean (mm Hg) 63 74 72 Source Monitor Monitor Monitor Position Sitting Sitting Sitting Blood Pressure Location Right Forearm Left Arm Left Arm History Since Last Visit- (Skip if this is Patient's initial visit) Have you changed medications since your No No No last visit? Any new allergies or adverse reactions No No No Had a fall/change in ADL's that may No No No increase risk of falls Signs or symptoms of abuse and/or No No No neglect since last visit Have you been in the hospital since your No No last visit? Has dressing in place as prescribed Yes Yes Yes Has compression in place as prescribed N/A Yes Yes Has offloadiing in place as prescribed N/A N/A N/A Experienced any changes in pain level or No No No management Left Footwear Regular Shoe Regular Shoe Right Footwear Regular Shoe Regular Shoe Pain Scale: 0-10 Numeric Is Patient Pain Free? Yes Yes Yes 04/19/25 09:35 WC - Today's Visit Information Type of service Arrival Mode Transfer Assistance Transfer Assist (Other) Patient Identification Verified (Name & ) Patient Requires Transmission-Based Precautions Safety Precautions Vital Signs Temperature (97.8 F-99.1 F) Temperature Source Pulse Rate (60-100) 96 Pulse Location Monitor Respiratory Rate (12-18) 17 Respiratory rate source Observation Oxygen Delivery Method Room Air Blood Pressure (90/60-120/80) 105/76 Blood Pressure Mean (mm Hg) 85 Source Monitor Position Sitting Blood Pressure Location Right Arm History Since Last Visit- (Skip if this is Patient's initial visit) Have you changed medications since your No last visit? Any new allergies or adverse reactions No Had a fall/change in ADL's that may No increase risk of falls Signs or symptoms of abuse and/or No neglect since last visit Have you been in the hospital since your No last visit? Has dressing in place as prescribed Yes Has compression in place as prescribed No Has offloadiing in place as prescribed N/A Experienced any changes in pain level or No management Left Footwear Regular Shoe Right Footwear Regular Shoe Pain Scale: 0-10 Numeric Is Patient Pain Free? Yes WC - Nurse 1 - General Ulcer Measurement Start: 03/31/25 09:45 Freq: Status: Active Protocol: Activity Type Activity Date Activity User E-sign Co-sign Detail Recorded Client Recorded Date Recorded By Document 03/31/25 09:45 CP [id number] 03/31/25 09:50 CP Document 04/07/25 09:30 MT [id number] 04/07/25 09:46 MT Document 04/14/25 09:46 TS [id number] 04/14/25 09:56 TS Document 04/19/25 09:35 MT [id number] 04/19/25 09:46 MT 03/31/25 04/07/25 04/14/25 09:45 09:30 09:46 Wound Center Nurse 1 #2 Left lateral Ankle -Combined with other wound No -Current Size (cm) - Length 0.3 1 1.2 -Current Size (cm) - Width 0.5 1 1.1 -Current Size (cm) - Depth 0.1 0.1 0.1 -Total Square Cm 0.15 1 1.32 -Date of Last Picture (Recall this 03/31/25 04/07/25 04/14/25 field) -Photo Taken Yes Yes -Epithelialization None Present -Tunneling No No No -Undermining/Tunneling No No No -Circular Undermining No No -Change in Wound Grade/Stage No -Exudate Amt Small Medium -Exudate Type Serosanguineous Serosanguineous -Wound Margin Flat & Intact Distinct, Outline Attached -Granulation Amt None Present (0 Medium (34-66%) Medium (34-66%) %) -Granulation Quality [place],Red [place],Red -Slough/Fibrin Yes -Necrosis Amt Large (67-100%) None Present (0 %) -Necrotic Tissue Type Adherent Slough Adherent Slough -Structure Exposed N/A None/Limited to Skin Breakdown -Texture ([place]-wound Skin Appearance) No Abnormality Assessed Assessed -Moisture ([place]-wound Skin Appearance) No Abnormality Assessed -Color ([place]wound Skin Appearance) No Abnormality Assessed Assessed -Temperature ([place]wound Skin No Abnormality No Abnormality No Abnormality Appearance) (Pt Warm) (Pt Warm) (Pt Warm) -Tenderness on Palpation ([place]-wound No Skin Appearance) -Ulcer Cleansing Rinsed/ Soap and Water Soap and Water Irrigated with Saline -Foul Odor after Cleansing No No No -Anesthetic Used 5% Lidocaine 5% Lidocaine 4% Lidocaine Gel Gel Solution #1 Right lateral Ankle -Combined with other wound No No -Current Size (cm) - Length 0.3 0.1 1 -Current Size (cm) - Width 0.5 0.1 0.8 -Current Size (cm) - Depth 0.3 0.1 0.1 -Total Square Cm 0.15 0.01 0.8 -Date of Last Picture (Recall this 03/31/25 04/07/25 04/14/25 field) -Photo Taken Yes Yes -Epithelialization None Present -Tunneling No No No -Undermining/Tunneling No No No -Circular Undermining No No -Exudate Amt Small None Present Medium -Exudate Type Serosanguineous Serosanguineous -Wound Margin Flat & Intact Distinct, Distinct, Outline Outline Attached Attached -Granulation Amt None Present (0 Medium (34-66%) Medium (34-66%) %) -Granulation Quality [place],Red [place],Red -Slough/Fibrin Yes No -Necrosis Amt Large (67-100%) -Necrotic Tissue Type Adherent Slough Adherent Slough -Structure Exposed N/A None/Limited to None/Limited to Skin Breakdown Skin Breakdown -Texture ([place]-wound Skin Appearance) No Abnormality Assessed Assessed -Moisture ([place]wound Skin Appearance) No Abnormality Assessed -Color ([place]wound Skin Appearance) No Abnormality Assessed Assessed -Temperature ([place]wound Skin No Abnormality No Abnormality No Abnormality Appearance) (Pt Warm) (Pt Warm) (Pt Warm) -Tenderness on Palpation ([place]-wound No Skin Appearance) -Ulcer Cleansing Rinsed/ Soap and Water Soap and Water Irrigated with Saline -Foul Odor after Cleansing No No No -Anesthetic Used 5% Lidocaine 5% Lidocaine 5% Lidocaine Gel Gel Gel Lower Limb Edema Present Point of measurement (cm from the medial 33.8 instep) Point of Measurement (cm from the medial 22 instep) Point of measurement (cm from the medial 34 instep) Point of Measurement (cm from the medial 23.5 instep) 04/19/25 09:35 Wound Center Nurse 1 #2 Left lateral Ankle -Combined with other wound -Current Size (cm) - Length -Current Size (cm) - Width -Current Size (cm) - Depth -Total Square Cm -Date of Last Picture (Recall this field) -Photo Taken -Epithelialization -Tunneling -Undermining/Tunneling -Circular Undermining -Change in Wound Grade/Stage -Exudate Amt -Exudate Type -Wound Margin -Granulation Amt -Granulation Quality -Slough/Fibrin -Necrosis Amt -Necrotic Tissue Type -Structure Exposed -Texture ([place]-wound Skin Appearance) -Moisture ([place]-wound Skin Appearance) -Color ([place]-wound Skin Appearance) -Temperature ([place]-wound Skin Appearance) -Tenderness on Palpation ([place]-wound Skin Appearance) -Ulcer Cleansing -Foul Odor after Cleansing -Anesthetic Used #1 Right lateral Ankle -Combined with other wound No -Current Size (cm) - Length 0.1 -Current Size (cm) - Width 0.1 -Current Size (cm) - Depth 0.1 -Total Square Cm 0.01 -Date of Last Picture (Recall this 04/19/25 field) -Photo Taken -Epithelialization -Tunneling -Undermining/Tunneling No -Circular Undermining No -Exudate Amt Small -Exudate Type Serosanguineous -Wound Margin Distinct, Outline Attached -Granulation Amt Medium (34-66%) -Granulation Quality [place],Red -Slough/Fibrin -Necrosis Amt -Necrotic Tissue Type -Structure Exposed -Texture ([place]-wound Skin Appearance) Assessed -Moisture ([place]-wound Skin Appearance) Assessed -Color ([place]wound Skin Appearance) Assessed -Temperature ([place]wound Skin No Abnormality Appearance) (Pt Warm) -Tenderness on Palpation ([place]-wound Skin Appearance) -Ulcer Cleansing Soap and Water -Foul Odor after Cleansing No -Anesthetic Used 5% Lidocaine Gel Lower Limb Edema Present No Point of measurement (cm from the medial instep) Point of Measurement (cm from the medial instep) Point of measurement (cm from the medial 35 instep) Point of Measurement (cm from the medial 22 instep) WC - Nurse 2 - General Ulcer CM Notes Start: 03/31/25 09:45 Freq: Status: Active Protocol: Activity Type Activity Date Activity User E-sign Co-sign Detail Recorded Client Recorded Date Recorded By Document 03/31/25 10:00 [id number] 03/31/25 10:04 Document 04/07/25 09:58 [id number] 04/07/25 10:04 Document 04/14/25 10:00 [id number] 04/14/25 10:04 Document 04/19/25 10:21 [id number] 04/19/25 10:32 03/31/25 04/07/25 04/14/25 10:00 09:58 10:00 Wound Center Nurse 2 #2 Left lateral Ankle -Time 10:00 09:58 10:01 -Correct Patient Yes Yes Yes -Correct Side, Site, Position Yes Yes No -Correct Procedure Yes Yes No -Procedure Performed Yes Yes No -Type of Procedure Debridement Debridement -Clinical Debridement Subcutaneous Subcutaneous -Tissue Removed Subcutaneous Subcutaneous -Post Debridement (cm) - Length 1.2 0.5 0 -Post Debridement (cm) - Width 0.4 0.6 0 -Post Debridement (cm) - Depth 0.1 0.1 0 -Total Square (Post) (cm) 0.48 0.30 0 -Area of Debridement (cm) - Length 1.2 0.5 0 -Area of Debridement (cm) - Width 0.4 0.6 0 -Total Square (Area) (cm) 0.48 0.30 0 -Tunneling No No -Undermining/Tunneling No No -Circular Undermining No No -Wound/Ulcer Outcome Not Healed Not Healed Healed- Epithelialized -Ulcer Cleansing Rinsed/ Rinsed/ Irrigated with Irrigated with Saline Saline -Foul Odor after Cleansing No No -Bioengineered Tissue No No -Bleeding Controlled with Pressure Pressure -Treatment Response Procedure Procedure Tolerated Well Tolerated Well -Offloading No No -Debridement - Subq, 1st 20sq cm Yes Yes #1 Right lateral Ankle -Time 10:00 09:58 10:02 -Correct Patient Yes Yes Yes -Correct Side, Site, Position Yes Yes Yes -Correct Procedure Yes Yes Yes -Procedure Performed Yes Yes Yes -Type of Procedure Debridement Debridement Debridement -Clinical Debridement Muscle / Fascia Subcutaneous Subcutaneous -Tissue Removed Muscle Subcutaneous Subcutaneous -Post Debridement (cm) - Length 1.1 1.0 0.7 -Post Debridement (cm) - Width 0.9 0.9 0.6 -Post Debridement (cm) - Depth 0.3 0.3 0.2 -Total Square (Post) (cm) 0.99 0.90 0.42 -Area of Debridement (cm) - Length 1.1 1 0.7 -Area of Debridement (cm) - Width 0.9 0.9 0.6 -Total Square (Area) (cm) 0.99 0.9 0.42 -Tunneling No No No -Undermining/Tunneling No No No -Circular Undermining No No No -Wound/Ulcer Outcome Not Healed Not Healed Not Healed -Ulcer Cleansing Rinsed/ Rinsed/ Rinsed/ Irrigated with Irrigated with Irrigated with Saline Saline Saline -Foul Odor after Cleansing No No No -Bioengineered Tissue Yes Yes Yes -Type of Bioengineered Tissue Epicord Epifix 18mm Epifix 18mm Disc Disc -Expiration Date 08/25/29 11/24/29 11/24/29 -Product Lot Number [id number] -Percent Used 100 100 100 -Lot number of Saline Used [id number] -Bleeding Controlled with Pressure Pressure Pressure -Treatment Response Procedure Procedure Procedure Tolerated Well Tolerated Well Tolerated Well -Offloading No No No -Debridement - Subq, 1st 20sq cm No No -Debridement - Muscle / Fascia, 1st No 20sq cm -Apply Skin Sub - 1st 25 sq cm - Legs 1 1 1 -Epicord Application 1-4 (per sq cm) 6 -Epifix 18mm Disc Application 1-4 3 3 Pain Scale: 0-10 Numeric Is Patient Pain Free? Yes Yes Yes 04/19/25 10:21 Wound Center Nurse 2 #2 Left lateral Ankle -Time -Correct Patient -Correct Side, Site, Position -Correct Procedure -Procedure Performed -Type of Procedure -Clinical Debridement -Tissue Removed -Post Debridement (cm) - Length -Post Debridement (cm) - Width -Post Debridement (cm) - Depth -Total Square (Post) (cm) -Area of Debridement (cm) - Length -Area of Debridement (cm) - Width -Total Square (Area) (cm) -Tunneling -Undermining/Tunneling -Circular Undermining -Wound/Ulcer Outcome -Ulcer Cleansing -Foul Odor after Cleansing -Bioengineered Tissue -Bleeding Controlled with -Treatment Response -Offloading -Debridement - Subq, 1st 20sq cm #1 Right lateral Ankle -Time 10:21 -Correct Patient Yes -Correct Side, Site, Position Yes -Correct Procedure Yes -Procedure Performed Yes -Type of Procedure Debridement -Clinical Debridement Subcutaneous -Tissue Removed Subcutaneous -Post Debridement (cm) - Length 0.8 -Post Debridement (cm) - Width 0.8 -Post Debridement (cm) - Depth 0.1 -Total Square (Post) (cm) 0.64 -Area of Debridement (cm) - Length 0.8 -Area of Debridement (cm) - Width 0.8 -Total Square (Area) (cm) 0.64 -Tunneling No -Undermining/Tunneling No -Circular Undermining No -Wound/Ulcer Outcome Not Healed -Ulcer Cleansing Rinsed/ Irrigated with Saline -Foul Odor after Cleansing No -Bioengineered Tissue Yes -Type of Bioengineered Tissue Epifix 18mm Disc -Expiration Date 10/25/29 -Product Lot Number [id number] -Percent Used 100 -Lot number of Saline Used [id number] -Bleeding Controlled with Pressure -Treatment Response Procedure Tolerated Well -Offloading No -Debridement - Subq, 1st 20sq cm No -Debridement - Muscle / Fascia, 1st 20sq cm -Apply Skin Sub - 1st 25 sq cm - Legs 1 -Epicord Application 1-4 (per sq cm) -Epifix 18mm Disc Application 1-4 3 Pain Scale: 0-10 Numeric Is Patient Pain Free? Yes - Nurse 3 - General Ulcer D/C NN Start: 03/31/25 09:45 Freq: Status: Active Protocol: Activity Type Activity Date Activity User E-sign Co-sign Detail Recorded Client Recorded Date Recorded By Document 03/31/25 10:15 TS [id number] 03/31/25 10:27 TS Document 04/07/25 10:13 TS [id number] 04/07/25 10:24 TS Document 04/14/25 10:21 TS [id number] 04/14/25 10:23 TS Document 04/19/25 10:45 MT [id number] 04/19/25 10:51 ND 03/31/25 04/07/25 04/14/25 10:15 10:13 10:21 Wound Care Center Nurse 3 #2 Left lateral Ankle -Primary Dressing Applied C Hydrogel -Other Dressing abd abd and kerlix -Primary Dressing Covered/Secured with Dry Gauze & Secured with Roll Gauze, Tape Secured with Tape -Hydrogel 0 #1 Right lateral Ankle -Foul Odor after Cleansing -Negative Pressure Wound Therapy -Primary Dressing Applied C Hydrogel -Other Dressing abd abd and kerlix -Primary Dressing Covered/Secured with Dry Gauze & Secured with Dry Gauze, Roll Gauze, Tape Secured with Secured with Tape Tape -Hydrogel 0 BLE -Lotion applied to leg before Yes Yes compression wrap -Tubular Bandage Single Layer Single Layer Single Layer -Size of Tubigrip Used Size D Size D Size D -Size D ($) 2 2 2 Pain Scale: 0-10 Numeric Is Patient Pain Free? Yes Yes Yes WC - Visit Discharge Discharge Condition Stable Stable Stable Ambulatory Status Wheelchair Wheelchair Wheelchair Transportation Ambulance Ambulance Ambulance Medication Reconcilliation completed & No No No provided to patient/care provider Clinical Summary of Care Provided Yes Yes Yes 04/19/25 10:45 Wound Care Center Nurse 3 #2 Left lateral Ankle -Primary Dressing Applied -Other Dressing -Primary Dressing Covered/Secured with -Hydrogel #1 Right lateral Ankle -Foul Odor after Cleansing No -Negative Pressure Wound Therapy N/A -Primary Dressing Applied -Other Dressing abd -Primary Dressing Covered/Secured with Dry Gauze & Roll Gauze, Secured with Tape -Hydrogel BLE -Lotion applied to leg before compression wrap -Tubular Bandage -Size of Tubigrip Used -Size D ($) Pain Scale: 0-10 Numeric Is Patient Pain Free? Yes WC - Visit Discharge Discharge Condition Stable Ambulatory Status Unsteady, Wheelchair Transportation custodial transport Medication Reconcilliation completed & No provided to patient/care provider Clinical Summary of Care Provided Yes Assessment/Plan Assessment/Plan (1) Non-pressure chronic ulcer of left ankle with fat layer exposed: CODE(S): L97.322 - Non-pressure chronic ulcer of left ankle with fat layer exposed PLAN: Improving Placement of dermal substitute Right lateral ankle wound was debrided today with a 5 mm dermal curette without incident. Predebridement measurement was sanguinous crust postdebridement measurement is 0.7 x 0.8 and is 0.2 cm deep. EpiFix graft 18 mm depth was applied to the full-thickness wound to the lateral right ankle. There was no signs of infection. No bone or tendon was exposed and the wound veil and Steri-Strips were applied as well as dry sterile dressing and Tubigrip to the right lower extremity. Continue to follow with Dr. Ahmadi for the EpiFix
--- NOTE | 2025-04-20 09:30 | WC ---
PHOTO-RIGHT ANKLE 04/19/25
== END 2025-04-25 23:59 | disposition home or self-care (01) ==
LOC: WC 09:45
PROVIDERS: PCP Internal Medicine; Referring Provider Physician Assistant; Visit Provider Podiatrist Foot & Ankle Surgery
DX: E11.622 Type 2 diabetes mellitus with other skin ulcer (principal); L97.313 Non-pressure chronic ulcer of right ankle with necrosis of muscle; L97.322 Non-pressure chronic ulcer of left ankle with fat layer exposed; F03.90 Unspecified dementia, unspecified severity, without behavioral disturbance, psychotic disturbance, mood disturbance, and anxiety
CPT/HCPCS: 11042; 15271; Q4186; Q4187